=== PATIENT | male | born 1945 | race Caucasian/White ===

== ENCOUNTER 2016-07-05 18:55 | Emergency (ER) | payer MEDICARE, OTHER ==
[~2016-07-05] VITALS: Ht 177.8 cm; Wt 108.9 kg
[~2016-07-05 18:55] MED LIST: ASP325T PO; ASPI-983 PO; ATOR80TA PO; CARV3.122 PO; CLPD75T PO; CRV6.25T; DIPH25TA31 PO; ENAL5TAB PO; ENALIPRIL; ENLP5T; FAMO20TA3 PO; FAMO20TA5 PO; FLUT16SP22 NSEACH; IPRA30SP NSEACH; LEVO500T69 PO; P EP PO; PNT40TEC; TICA90TA PO
[2016-07-05] MEDS ORDERED: ASPIRIN 81 MG CHEW (CHILDREN'S ASA) PO ONE (19:15)
[2016-07-05 19:19] LABS: BASOPHILS % (AUTO) 0 % (0-10); EOSINOPHILS # (AUTO) 0.4 10^3/uL (0.0-0.3); EOSINOPHILS % (AUTO) 5 % (0-10); LYMPHOCYTES # (AUTO) 1.6 X 10^3 (1.0-4.0); LYMPHOCYTES % (AUTO) 17 % (12-44); MEAN CORPUSCULAR HEMOGLOBIN 33 PG (25-34); MEAN CORPUSCULAR HGB CONC 35 G/DL (32-36); MEAN CORPUSCULAR VOLUME 94 FL (80-99); MEAN PLATELET VOLUME 8.9 FL (7.4-10.4); MONOCYTES # (AUTO) 0.9 X 10^3 (0.0-1.0); MONOCYTES % (AUTO) 9 % (0-12); NEUTROPHILS # (AUTO) 6.3 X 10^3 (1.8-7.8); NEUTROPHILS % (AUTO) 69 % (42-75); PLATELET COUNT 318 10^3/uL (130-400); RED BLOOD COUNT 4.65 10^6/uL (4.35-5.85); RED CELL DISTRIBUTION WIDTH 13.2 % (10.0-14.5); WHITE BLOOD COUNT 9.1 10^3/uL (4.3-11.0)
[2016-07-05] MEDS ORDERED: CLOP75TA69 PO (19:25)
[2016-07-05 19:28] LABS: PROTHROMBIN TIME PATIENT 13.2 SEC (12.2-14.7)
--- NOTE | 2016-07-05 19:33 | Diagnostic Imaging Report ---
INDICATION: Chest pain. Comparison with 10/08/2015. FINDINGS: There continues to be cardiomegaly. Mild chronic basilar interstitial lung disease present with no acute infiltrates. The upper lungs are clear with no evidence of pulmonary edema. No pneumothorax or pleural effusions. IMPRESSION: 1. Cardiomegaly with chronic bilateral lower lobe interstitial changes. No evidence of pulmonary edema or pleural effusions. Dictated by: Dictated on workstation # [id number]
--- NOTE | 2016-07-05 19:38 | ED Chest Pain ---
General Chief Complaint: Chest Pain Stated Complaint: CP Nursing Triage Note: PT TO ED 5 W/ S.O. 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 PT DESCRIBES PAIN "BURNING". DOES REPORT HX OF ME W/ STENT PLACEMENT. NO OTHER C/O VOICED Nursing Sepsis Screen: No Definite Risk Source: patient Exam Limitations: no limitations History of Present Illness Time seen by provider: 19:35 Initial Comments To ER with reports of central chest pain that began at 3pm while he was sitting in his chair. States he thought this may have been heartburn as it was kind of a burning sensation. He states that it was more of a discomfort than a pain, did not radiate and was not associated with any other symptoms. He has recently been treated with 2 rounds of antibiotics for an upper respiratory infection by his primary care provider. He became concerned because he has a history of coronary artery disease with stent placement done on 10/08/[address] Membreno. He quit smoking 8 years ago after a 47 year smoking history. Upon arrival to ER he is chest pain-free. At the onset of his pain at home he did take one Pepcid and one baby aspirin. Timing/Duration: 1-3 hours Severity/Quality: moderate Location: central Radiation: no radiation Activities at Onset: none ASA po PHARMACIST IN CHARGE OWNER: Yes NTG SL PHARMACIST IN CHARGE OWNER: No Associated Symptoms: denies symptomsNo nausea/vomiting, No syncope, No weakness Allergies and Home Medications Allergies Coded Allergies: No Known Drug Allergies (Verified , 03/19/08) Home Medications Aspirin 81 Mg Tablet. 81 MG PO DAILY (Reported) Atorvastatin Calcium 80 Mg Tablet 40 MG PO HS (Reported) PATIENT TAKES 1/2 TABLET OF 80 MG DAILY Carvedilol 3.125 Mg Tablet 3.125 MG PO BID (Reported) Clopidogrel Bisulfate 75 Mg Tablet 75 MG PO DAILY (Reported) Diphenhydramine HCl 25 Mg Tablet 25 MG PO DAILY PRN PRN ALLERGIES (Reported) Enalapril Maleate 5 Mg Tablet 10 MG PO DAILY (Reported) PATIENT TAKES 2 (5 MG) TABLETS DAILY Famotidine 20 Mg Tablet 20 MG PO PRN PRN PRN INDIGESTION (Reported) Pseudoephedrine/Triprolidine 1 Each Tablet 1 EACH PO DAILY PRN PRN ALLERGIES ( Reported) Review of Systems Constitutional: see HPINo chills, No diaphoresis EENTM: No Symptoms Reported Respiratory: No Symptoms Reported Cardiovascular: See HPI Chest PainDenies Edema, Denies Irregular Heart Rate, Denies Lightheadedness Gastrointestinal: No Symptoms Reported Genitourinary: No Symptoms Reported Musculoskeletal: no symptoms reported Skin: no symptoms reported Psychiatric/Neurological: No Symptoms Reported Endocrine: No Symptoms Reported Past Nhcbznb-Dzbewe-Vwspmi Hx Patient Social History Alcohol Use: Rarely Uses Recreational Drug Use: No Smoking Status: Former Smoker Recent Foreign Travel: No Contact w/Someone Who Travel: No Recent Infectious Disease Expo: No Recent Hopitalizations: Yes Physical Abuse Screen: No Sexual Abuse: No Immunizations Up To Date Tetanus Booster (TDap): More than 5yrs Date of Pneumonia Vaccine: Mar 13, 2012 Date of Influenza Vaccine: Apr 16, 2013 Surgeries HX Surgeries: Yes (cysts removed, appendix ) Respiratory Hx Respiratory Disorders: Yes (USES BIPAP, GETS SOB WITH EXERCISE) Respiratory Disorders: Sleep Apnea Cardiovascular Hx Cardiac Disorders: Yes (STENTS X2 PLACED 5 YRS AGO) Cardiac Disorders: Heart Attack, High Cholesterol Neurological Hx Neurological Disorders: No Reproductive System Hx Reproductive Disorders: No Genitourinary Hx Genitourinary Disorders: No Gastrointestinal Hx Gastrointestinal Disorders: No Musculoskeletal Hx Musculoskeletal Disorders: No Endocrine Hx Endocrine Disorders: No HEENT HX ENT Disorders: No (GLASSES) Cancer Hx Cancer: No Psychosocial Hx Psychiatric Problems: No Integumentary HX Skin/Integumentary Disorder: No Blood Transfusions Hx Blood Disorders: No (ON BLOOD THINNERS) Family Medical History Family Medial History: Abdominal aortic aneurysm 03 FATHER (DOESN'T KNOW MUCH ABOUT FAMILY HX) No Family History of: Cancer of colon Physical Exam Vital Signs Vital Sign - Last 12Hours 07/05/16 19:00 Temp 98.1 Pulse 69 Resp 18 B/P 154/92 Pulse Ox 96 O2 Delivery Room Air Capillary Refill : Less Than 3 Seconds General Appearance: No Apparent Distress WD/WN Obese HEENT: PERRL/EOMI TMs Normal Neck: Full Range of Motion Supple Respiratory: No Accessory Muscle Use No Respiratory Distress Other (Crackles left lung base) Cardiovascular: Regular Rate, Rhythm Normal Peripheral Pulses Gastrointestinal: Non Tender Soft Extremity: Normal Capillary Refill No Calf Tenderness Neurologic/Psychiatric: Alert Oriented x3 No Motor/Sensory Deficits Skin: Normal Color Warm/Dry Progress/Results/Core Measures Results/Orders Lab Results Laboratory Tests Test 07/05/16 19:10 07/05/16 20:10 Range/Units Activated Partial Thromboplast Time 31 24-35 SEC Alanine Aminotransferase (ALT/SGPT) 34 0-55 U/L Albumin 4.0 3.2-4.5 G/DL Alkaline Phosphatase 112 40-136 U/L Anion Gap 11 5-14 MMOL/L Aspartate Amino Transf (AST/SGOT) 22 5-34 U/L BUN/Creatinine Ratio 12 Basophils # (Auto) 0.0 0.0-0.1 10^3/uL Basophils (%) (Auto) 0 0-10 % Blood Urea Nitrogen 11 7-18 MG/DL Calcium Level 9.0 8.5-10.1 MG/DL Carbon Dioxide Level 19 L 21-32 MMOL/L Chloride Level 101 98-107 MMOL/L Creatinine 0.93 0.60-1.30 MG/DL Eosinophils # (Auto) 0.4 H 0.0-0.3 10^3/uL Eosinophils (%) (Auto) 5 0-10 % Estimat Glomerular Filtration Rate > 60 Glucose Level 111 H 70-105 MG/DL Hematocrit 44 40-54 % Hemoglobin 15.1 13.3-17.7 G/DL INR Comment 1.0 0.8-1.4 Lymphocytes # (Auto) 1.6 1.0-4.0 X 10^3 Lymphocytes (%) (Auto) 17 12-44 % Magnesium Level 2.1 1.8-2.4 MG/DL Mean Corpuscular Hemoglobin 33 25-34 PG Mean Corpuscular Hemoglobin Concent 35 32-36 G/DL Mean Corpuscular Volume 94 80-99 FL Mean Platelet Volume 8.9 7.4-10.4 FL Monocytes # (Auto) 0.9 0.0-1.0 X 10^3 Monocytes (%) (Auto) 9 0-12 % Myoglobin 66.2 10.0-92.0 NG/ML Neutrophils # (Auto) 6.3 1.8-7.8 X 10^3 Neutrophils (%) (Auto) 69 42-75 % Platelet Count 318 130-400 10^3/uL Potassium Level 4.2 3.6-5.0 MMOL/L Prothrombin Time 13.2 12.2-14.7 SEC Red Blood Count 4.65 4.35-5.85 10^6/uL Red Cell Distribution Width 13.2 10.0-14.5 % Sodium Level 131 L 135-145 MMOL/L Total Bilirubin 0.4 0.1-1.0 MG/DL Total Protein 6.6 6.4-8.2 G/DL Troponin I < 0.30 < 0.30 <0.30 NG/ML White Blood Count 9.1 4.3-11.0 10^3/uL My Orders Orders-ORALIAIRASEMA Wilkins DOCUMENT CONTROL ASSOCIATE Cbc With Automated Diff (07/05/16 19:09) Magnesium (07/05/16 19:09) Chest 1 View, Ap/Pa Only (07/05/16 19:09) Ekg Tracing (07/05/16 19:09) Cardiac Profile 1 (07/05/16 19:09) Comprehensive Metabolic Panel (07/05/16 19:09) Myoglobin Serum (07/05/16 19:09) Protime With Inr (07/05/16 19:09) Partial Thromboplastin Time (07/05/16 19:09) O2 (07/05/16 19:09) Monitor-Rhythm Ecg Trace Only (07/05/16 19:09) Lipid Panel (07/06/16 06:00) Aspirin Chewable Tablet (Baby Aspirin Ch (07/05/16 19:15) Saline Lock/Iv-Start (07/05/16 19:09) Troponin I (07/05/16 20:22) Medications Given in ED Current Medications Medications Dose Ordered Sig/Ana Cristina Route Start Time Stop Time Status Last Admin Dose Admin Aspirin 324 mg ONCE ONCE PO 07/05/16 19:15 07/05/16 19:16 DC 07/05/16 19:29 324 MG Vital Signs/I&O Vital Sign - Last 12Hours 07/05/16 07/05/16 19:00 19:00 Temp 98.1 Pulse 69 Resp 18 B/P 154/92 Pulse Ox 96 O2 Delivery Room Air Room Air Blood Pressure Mean: 112 Departure Communication Progress Notes I discussed the case with Dr. Abdi. He would like to see the patient in his office tomorrow morning. Impression Impression: Primary Impression: Chest pain Qualified Code: R07.9 - Chest pain, unspecified Additional Impression: Indigestion Disposition: 01 HOME, SELF-CARE Condition: Stable Departure-Patient Inst. Decision time for Depature: 20:35 Referrals: ANABELLE BATISTA MD (PCP/Family) Primary Care Physician ADRYAN MEMBRENO MD Patient Instructions: Chest Pain Add. Discharge Instructions: 1. Return to ER for any concerns 2. Call Dr. Membreno's office tomorrow to make an appointment for follow-up 3. Use Pepcid (famotidine) twice daily for the next week All discharge instructions reviewed with patient and/or family. Voiced understanding. IRASEMA BARTON DOCUMENT CONTROL ASSOCIATE Jul 05, 2016 19:38
[2016-07-05 19:42] LABS: MYOGLOBIN SERUM 66.2 NG/ML (10.0-92.0)
[2016-07-05 19:59] LABS: ALANINE AMINOTRANSFERASE 34 U/L (0-55); ANION GAP 11 MMOL/L (5-14); ASPARTATE AMINO TRANSFERASE 22 U/L (5-34); BILIRUBIN,TOTAL 0.4 MG/DL (0.1-1.0); BLOOD UREA NITROGEN 11 MG/DL (7-18); BUN/CREATININE RATIO 12; CARBON DIOXIDE 19 MMOL/L (21-32); CHLORIDE 101 MMOL/L (98-107); CREATININE SERUM 0.93 MG/DL (0.60-1.30); GFR ESTIMATED > 60; GLUCOSE 111 MG/DL (70-105); MAGNESIUM 2.1 MG/DL (1.8-2.4); POTASSIUM 4.2 MMOL/L (3.6-5.0); SODIUM 131 MMOL/L (135-145); TOTAL PROTEIN 6.6 G/DL (6.4-8.2)
[2016-07-05 21:17] VITALS: BP 133/79
== END 2016-07-05 21:17 | disposition home or self-care (01) ==
LOC: EDUNIT# 18:55 → ER 18:56
DX: R07.9 Chest pain, unspecified (principal); K30 Functional dyspepsia; I25.10 Atherosclerotic heart disease of native coronary artery without angina pectoris; I25.2 Old myocardial infarction; Z79.82 Long term (current) use of aspirin; Z79.02 Long term (current) use of antithrombotics/antiplatelets; Z79.899 Other long term (current) drug therapy; Z95.5 Presence of coronary angioplasty implant and graft
CPT/HCPCS: 36415; 71010; 80053; 83735; 83874; 84484; 85025; 85610; 85730; 93005

== ENCOUNTER 2016-07-15 01:11 | Observation (INO) | payer MEDICARE, OTHER ==
[~2016-07-15] VITALS: Ht 177.8 cm; Wt 108.0 kg
[2016-07-15] VITALS (15 sets, daily range): BP systolic 109–149; BP diastolic 61–86
[~2016-07-15 01:11] MED LIST changes: +CLOP75TA69 PO
--- OUTSIDE RECORDS SUMMARY | 2016-07-15 01:18 | XMS REPORT | Continuity of Care Document ---
Author Author [facility] Organization [facility] Address Unknown Phone Unavailable Care Team Providers Care Wharf Builder Name Role Phone ANABELLE BATISTA MD PCP Insurance Providers Payer Name Policy Number Subscriber Name Relationship [employer] [id number] Preet Barton 17 Self / Same As Patient [employer] [id number] Preet Barton 17 Self / Same As Patient Advance Directives Directive Response Recorded Date/Time Advance Directives No 07/05/16 7:00pm Health Care Power of Inspector Final Assembly Mechanical No 07/05/16 7:00pm Organ Donor Yes 07/05/16 7:00pm Resuscitation Status Full Code 07/05/16 7:00pm Chief Complaint and Reason for Visit Chief Complaint Chest Pain Reason for Visit Indigestion Chest pain Problems Active Problems Medical Problem Onset Date Status Chest pain Unknown Acute Indigestion Unknown Acute Medications Current Home Medications Medication Dose Units Route Directions Days/Qty Instructions Start Date Atorvastatin Calcium 80 Mg 40 Mg Oral Bedtime PATIENT TAKES 1/2 TABLET OF 80 MG DAILY 08/24/08 Carvedilol (Coreg) 3.125 Mg 3.125 Mg Oral Twice A Day 06/05/09 Enalapril Maleate 5 Mg 10 Mg Oral Daily PATIENT TAKES 2 (5 MG) TABLETS DAILY 08/15/13 Aspirin 81 Mg 81 Mg Oral Daily 10/08/15 Pseudoephedrine/Triprolidine 1 Each 1 Each Oral Daily as needed for Allergies 10/08/15 Famotidine 20 Mg Oral As Needed as needed for Indigestion 10/08/15 Diphenhydramine Hcl 25 Mg 25 Mg Oral Daily as needed for Allergies 10/08/15 Clopidogrel Bisulfate 75 Mg 75 Mg Oral Daily 07/05/16 Past Home Medications Medication Directions Ordered Status Pantoprazole Sodium 40 Mg Tablet., 08/24/08 Discontinued Carvedilol 6.25 Mg Tab, 08/24/08 Discontinued Clopidogrel Bisulfate 75 Mg Tablet, 75 Mg Oral Daily 08/24/08 Discontinued Enalapril Maleate 5 Mg Tab, 08/24/08 Discontinued Aspirin 325 Mg Tablet, 325 Mg Oral Daily 08/24/08 Discontinued [Enalipril] , 06/04/09 Discontinued Levofloxacin 500 Mg Tab, 1 Each Oral Daily 06/19/11 Discontinued Famotidine (Pepcid) 20 Mg Tablet, 20 Mg Oral Daily as needed for Heartburn Discontinued Fluticasone Propionate 16 Gm Naspr, 1 Spr Each Nostril Daily 08/15/13 Discontinued Ipratropium [place] 21 Mcg [place], 1 Spr Each Nostril Daily as needed for Nasal Congestion 08/15/13 Discontinued Ticagrelor 90 Mg Tablet, 90 Mg Oral Twice A Day 10/09/15 Discontinued Social History Social History Problem Response Recorded Date/Time Alcohol Use Denies Use 08/17/2013 7:38am Recreational Drug Use No 08/17/2013 7:38am Recent Foreign Travel No 08/17/2013 7:38am Recent Infectious Disease Exposure No 08/17/2013 7:38am Hospitalization with Isolation Denies 07/05/2016 7:00pm Smoking Status Former Smoker 07/05/2016 7:00pm Recent Hopitalizations Yes 07/05/2016 7:00pm Hospitalization with Isolation Denies 07/05/2016 7:00pm Query Response Start Date Stop Date Smoking Status Former Smoker Hospital Discharge Instructions No hospital discharge instructions. Plan of Care Discharge Date 07/05/16 9:17pm Disposition 01 HOME, SELF-CARE Condition at Discharge Stable Instructions/Education Provided Chest Pain Prescriptions See Medication Section Referrals ANABELLE BATISTA MD - Primary Care Physician ANABELLE BATISTA MD - Primary Care Physician ADRYAN MEMBRENO MD - Additional Instructions/Education 1. Return to ER for any concerns 2. Call Dr. Membreno's office tomorrow to make an appointment for follow-up 3. Use Pepcid (famotidine) twice daily for the next week All discharge instructions reviewed with patient and/or family. Voiced understanding. Functional Status No functional status results. Allergies, Adverse Reactions, Alerts No known allergies. Immunizations No immunization records. Vital Signs Acute Vital Signs Vital Response Date/Time Temperature (Fahrenheit) 98.1 degrees F (97.6 - 99.5) 07/05/2016 7:00pm Temperature (Calculated Celsius) 36.86056 degrees C (36.4 - 37.5) 07/05/2016 7:00pm Temperature Source Temporal 07/05/2016 7:00pm Pulse Rate (adult) 60 bpm (60 - 90) 07/05/2016 9:17pm Respiratory Rate 18 bpm (12 - 24) 07/05/2016 9:17pm O2 Sat by Pulse Oximetry 99 % (88 - 100) 07/05/2016 9:17pm Blood Pressure 133/79 mm Hg 07/05/2016 9:17pm Blood Pressure Mean 112 mm Hg 07/05/2016 7:00pm Pain Numeric Pain Scale 0-No Pain 07/05/2016 9:17pm Height (Feet) 5 feet 07/05/2016 7:00pm Height (Inches) 10 inches 07/05/2016 7:00pm Height (Calculated Centimeters) 177.555423 cm 07/05/2016 7:00pm Weight (Pounds) 240 pounds 07/05/2016 7:00pm Weight (Calculated Kilograms) 108.956779 kilograms 07/05/2016 7:00pm Capillary Refill Capillary Refill Less Than 3 Seconds 07/05/2016 7:00pm Capillary Refill Capillary Refill Less Than 3 Seconds 07/05/2016 7:00pm Height 5 ft 10 in Weight 240 lb Body Mass Index 34.4 kg/m^2 Results Laboratory Results Test Name Result Units Flags Reference Collection Date/Time Result Date/ Time Comments White Blood Count 9.1 10^3/uL 4.3-11.0 07/05/2016 7:10pm 07/05/2016 7: 20pm Red Blood Count 4.65 10^6/uL 4.35-5.85 07/05/2016 7:10pm 07/05/2016 7: 20pm Hemoglobin 15.1 G/DL 13.3-17.7 07/05/2016 7:10pm 07/05/2016 7:20pm Hematocrit 44 % 40-54 07/05/2016 7:1007/05/2016 7:20pm Mean Corpuscular Volume 94 FL 80-99 07/05/2016 7:1007/05/2016 7: 20pm Mean Corpuscular Hemoglobin 33 PG 25-34 07/05/2016 7:10pm 07/05/2016 7: 20pm Mean Corpuscular Hemoglobin Concent 35 G/DL 32-36 07/05/2016 7:10pm 7:20pm Red Cell Distribution Width 13.2 % 10.0-14.5 07/05/2016 7:102016 7:20pm Platelet Count 318 10^3/uL 130-400 07/05/2016 7:1007/05/2016 7:20pm Mean Platelet Volume 8.9 FL 7.4-10.4 07/05/2016 7:1007/05/2016 7: 20pm Neutrophils (%) (Auto) 69 % 42-75 07/05/2016 7:1007/05/2016 7:20pm Lymphocytes (%) (Auto) 17 % 12-44 07/05/2016 7:1007/05/2016 7:20pm Monocytes (%) (Auto) 9 % 0-12 07/05/2016 7:1007/05/2016 7:20pm Eosinophils (%) (Auto) 5 % 0-10 07/05/2016 7:1007/05/2016 7:20pm Basophils (%) (Auto) 0 % 0-10 07/05/2016 7:1007/05/2016 7:20pm Neutrophils # (Auto) 6.3 X 10^3 1.8-7.8 07/05/2016 7:10pm 07/05/2016 7: 20pm Lymphocytes # (Auto) 1.6 X 10^3 1.0-4.0 07/05/2016 7:10pm 07/05/2016 7: 20pm Monocytes # (Auto) 0.9 X 10^3 0.0-1.0 07/05/2016 7:10pm 07/05/2016 7: 20pm Eosinophils # (Auto) 0.4 10^3/uL H 0.0-0.3 07/05/2016 7:10pm 07/05/2016 7 :20pm Basophils # (Auto) 0.0 10^3/uL 0.0-0.1 07/05/2016 7:10pm 07/05/2016 7: 20pm Prothrombin Time 13.2 SEC 12.2-14.7 07/05/2016 7:10pm 07/05/2016 7: 30pm INR Comment 1.0 0.8-1.4 07/05/2016 7:10pm 07/05/2016 7:30pm INTERPRETIVE DATA SUGGESTED THERAPEUTIC RANGE FOR INR'S: VENOUS THROMBOSIS, PULMONARY EMBOLISM, OR PREVENTION OF SYSTEMIC EMBOLISM (EG. IN ATRIAL FIBRILLATION): 2.0 - 3.0 MECHANICAL PROSTHETIC HEART VALVES: 2.5 - 3.5* *NOTE: INR'S UP TO 4.5 MAY BE NECESSARY IN SELECTED GROUPS OF HIGH RISK PATIENTS. [employer] CONSENSUS CONFERENCE ON ANTITHROMBOTIC THERAPY (2000). Activated Partial Thromboplast Time 31 SEC 24-35 07/05/2016 7:10 7:30pm Sodium Level 131 MMOL/L L 135-145 07/05/2016 7:1007/05/2016 8:02pm Potassium Level 4.2 MMOL/L 3.6-5.0 07/05/2016 7:1007/05/2016 8:02pm Chloride Level 101 MMOL/L 98-107 07/05/2016 7:1007/05/2016 8:02pm Carbon Dioxide Level 19 MMOL/L L 21-32 07/05/2016 7:1007/05/2016 8: 02pm Anion Gap 11 MMOL/L 5-14 07/05/2016 7:1007/05/2016 8:02pm Blood Urea Nitrogen 11 MG/DL 7-18 07/05/2016 7:10pm 07/05/2016 8:02pm Creatinine 0.93 MG/DL 0.60-1.30 07/05/2016 7:10pm 07/05/2016 8:02pm BUN/Creatinine Ratio 12 07/05/2016 7:1007/05/2016 8:02pm Estimat Glomerular Filtration Rate > 60 07/05/2016 7:102016 8:02pm GFR INTERPRETIVE DATA UNITS FOR ESTIMATED GFR (eGFR): mL/min/1.73 M2 REFERENCE RANGE FOR ESTIMATED GFR (eGFR) eGFR NORMAL eGFR >60 MODERATELY DECREASED eGFR 30-59 SEVERLY DECREASED eGFR 15-29 KIDNEY FAILURE <15 (OR DIALYSIS) Glucose Level 111 MG/DL H 70-105 07/05/2016 7:1007/05/2016 8:02pm Calcium Level 9.0 MG/DL 8.5-10.1 07/05/2016 7:1007/05/2016 8:02pm Magnesium Level 2.1 MG/DL 1.8-2.4 07/05/2016 7:1007/05/2016 8:02pm Total Bilirubin 0.4 MG/DL 0.1-1.0 07/05/2016 7:1007/05/2016 8:02pm Alkaline Phosphatase 112 U/L 40-136 07/05/2016 7:07/05/2016 8: 02pm Aspartate Amino Transf (AST/SGOT) 22 U/L 5-34 07/05/2016 7:102016 8:02pm Alanine Aminotransferase (ALT/SGPT) 34 U/L 0-55 07/05/2016 7:1007/05 8:02pm Troponin I < 0.30 NG/ML <0.30 07/05/2016 8:1007/05/2016 9:08pm Troponin I < 0.30 NG/ML <0.30 07/05/2016 7:07/05/2016 7:43pm Myoglobin 66.2 NG/ML 10.0-92.0 07/05/2016 7:1007/05/2016 7:43pm Total Protein 6.6 G/DL 6.4-8.2 07/05/2016 7:1007/05/2016 8:02pm Albumin 4.0 G/DL 3.2-4.5 07/05/2016 7:10pm 07/05/2016 8:02pm Procedures Procedure Status Date Provider(s) Tracing only of electrocardiogram Active 07/05/16 IRASEMA BARTON APRN Encounters Encounter Location Arrival/Admit Date Discharge/Depart Date Attending Provider Registered Emergency Room [facility] 07/05/16 6:56pm IRASEMA BARTON APRN Recent Diagnosis
[2016-07-15] MEDS ORDERED: ASPIRIN 81 MG CHEW (CHILDREN'S ASA) PO ONE (01:30)
[2016-07-15 01:48] LABS: BASOPHILS % (AUTO) 0 % (0-10); EOSINOPHILS # (AUTO) 0.3 10^3/uL (0.0-0.3); EOSINOPHILS % (AUTO) 3 % (0-10); LYMPHOCYTES # (AUTO) 1.5 X 10^3 (1.0-4.0); LYMPHOCYTES % (AUTO) 16 % (12-44); MEAN CORPUSCULAR HEMOGLOBIN 33 PG (25-34); MEAN CORPUSCULAR HGB CONC 35 G/DL (32-36); MEAN CORPUSCULAR VOLUME 93 FL (80-99); MEAN PLATELET VOLUME 9.3 FL (7.4-10.4); MONOCYTES # (AUTO) 0.9 X 10^3 (0.0-1.0); MONOCYTES % (AUTO) 9 % (0-12); NEUTROPHILS # (AUTO) 7.2 X 10^3 (1.8-7.8); NEUTROPHILS % (AUTO) 72 % (42-75); PLATELET COUNT 328 10^3/uL (130-400); RED BLOOD COUNT 4.64 10^6/uL (4.35-5.85); RED CELL DISTRIBUTION WIDTH 13.1 % (10.0-14.5); WHITE BLOOD COUNT 9.9 10^3/uL (4.3-11.0)
[2016-07-15 01:51] LABS: PROTHROMBIN TIME PATIENT 13.1 SEC (12.2-14.7)
[2016-07-15 02:02] LABS: ALANINE AMINOTRANSFERASE 46 U/L (0-55); ALBUMIN 3.9 G/DL (3.2-4.5); ANION GAP 15 MMOL/L (5-14); ASPARTATE AMINO TRANSFERASE 48 U/L (5-34); BILIRUBIN,TOTAL 0.5 MG/DL (0.1-1.0); BLOOD UREA NITROGEN 9 MG/DL (7-18); BUN/CREATININE RATIO 9; CALCIUM 8.8 MG/DL (8.5-10.1); CARBON DIOXIDE 18 MMOL/L (21-32); CHLORIDE 100 MMOL/L (98-107); CREATININE SERUM 0.99 MG/DL (0.60-1.30); GFR ESTIMATED > 60; GLUCOSE 205 MG/DL (70-105); MAGNESIUM 2.1 MG/DL (1.8-2.4); POTASSIUM 3.6 MMOL/L (3.6-5.0); SODIUM 133 MMOL/L (135-145); TOTAL PROTEIN 6.6 G/DL (6.4-8.2)
--- NOTE | 2016-07-15 02:08 | ED Chest Pain ---
General Chief Complaint: Chest Pain Stated Complaint: CP Nursing Triage Note: Reports CP at rest lasting 20-30 min starting 0010. EMS arrival at home found pt outside walking toward them stating he had been pain free 4-5 min. Nursing Sepsis Screen: No Definite Risk Source: patient Exam Limitations: no limitations History of Present Illness Time seen by provider: 01:13 Initial Comments This 70-year-old gentleman presents to the emergency room with chest pain that started at approximately 00:10 and lasted for 20-30 minutes. The pain was central sternal, sharp, and accompanied by shakiness, shortness of air, and diaphoresis. Patient was at rest at onset. Patient reports having some lower abdominal aching the past couple of days which resolved today around noon. He has had a mild cough recently. He take aspirin 81 mg at home. Patient had another visit about one week ago for another episode of chest pain. He was dismissed from the ER after workup. Review of patient's chart notes a cardiac catheterization performed in September 2015 in which stenting of an 80 percent LAD stenosis was performed. Allergies and Home Medications Allergies Coded Allergies: No Known Drug Allergies (Verified , 03/19/08) Home Medications Aspirin 81 Mg Tablet.dr 81 MG PO DAILY (Reported) Atorvastatin Calcium 80 Mg Tablet 40 MG PO HS (Reported) PATIENT TAKES 1/2 TABLET OF 80 MG DAILY Carvedilol 3.125 Mg Tablet 3.125 MG PO BID (Reported) Clopidogrel Bisulfate 75 Mg Tablet 75 MG PO DAILY (Reported) Diphenhydramine HCl 25 Mg Tablet 25 MG PO DAILY PRN PRN ALLERGIES (Reported) Enalapril Maleate 5 Mg Tablet 5 MG PO DAILY (Reported) Famotidine 20 Mg Tablet 20 MG PO PRN PRN PRN INDIGESTION (Reported) Pseudoephedrine/Triprolidine 1 Each Tablet 1 EACH PO DAILY PRN PRN ALLERGIES ( Reported) Review of Systems Constitutional: see HPI diaphoresis EENTM: No Symptoms Reported Respiratory: See HPI Cardiovascular: See HPI Gastrointestinal: See HPI Genitourinary: No Symptoms Reported Musculoskeletal: no symptoms reported Skin: no symptoms reported Psychiatric/Neurological: No Symptoms Reported Endocrine: No Symptoms Reported Past Biehaix-Ajionb-Rwdtys Hx Patient Social History Alcohol Use: Rarely Uses Recreational Drug Use: No Smoking Status: Former Smoker Recent Foreign Travel: No Contact w/Someone Who Travel: No Recent Infectious Disease Expo: No Recent Hopitalizations: Yes Immunizations Up To Date Tetanus Booster (TDap): More than 5yrs Date of Pneumonia Vaccine: Mar 13, 2014 Date of Influenza Vaccine: Apr 16, 2013 Seasonal Allergies Seasonal Allergies: No Surgeries HX Surgeries: Yes (cysts removed thumb/scapula) Surgeries: Appendectomy, Coronary Stent, Vascular Surgery (CEA) Respiratory Hx Respiratory Disorders: Yes (USES BIPAP, GETS SOB WITH EXERCISE) Respiratory Disorders: Sleep Apnea Cardiovascular Hx Cardiac Disorders: Yes Cardiac Disorders: Coronary Artery Disease, Heart Attack, High Cholesterol Neurological Hx Neurological Disorders: No Reproductive System Hx Reproductive Disorders: No Genitourinary Hx Genitourinary Disorders: No Gastrointestinal Hx Gastrointestinal Disorders: Yes Gastrointestinal Disorders: Gastroesophageal Reflux Musculoskeletal Hx Musculoskeletal Disorders: Yes (Closed reductions) Musculoskeletal Disorders: Fractures Endocrine Hx Endocrine Disorders: No HEENT HX ENT Disorders: No (GLASSES) Cancer Hx Cancer: No Psychosocial Hx Psychiatric Problems: No Integumentary HX Skin/Integumentary Disorder: No Blood Transfusions Hx Blood Disorders: No (ON BLOOD THINNERS) Family Medical History Family Medial History: Abdominal aortic aneurysm 03 FATHER (DOESN'T KNOW MUCH ABOUT FAMILY HX) No Family History of: Cancer of colon Physical Exam Vital Signs Vital Sign - Last 12Hours 07/15/16 01:11 Temp 99.4 Pulse 84 Resp 19 B/P 134/74 Pulse Ox 96 O2 Delivery Room Air Capillary Refill : Less Than 3 Seconds General Appearance: No Apparent Distress WD/WN HEENT: PERRL/EOMI Normal ENT Inspection Neck: Normal Inspection Respiratory: Lungs Clear Normal Breath Sounds No Accessory Muscle Use No Respiratory Distress Cardiovascular: Regular Rate, Rhythm No Edema No Murmur Normal Peripheral Pulses Gastrointestinal: Normal Bowel Sounds Non Tender Soft Extremity: Normal Inspection Non Tender No Pedal Edema Neurologic/Psychiatric: Alert Oriented x3 No Motor/Sensory Deficits 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 Norm as Tested Skin: Normal Color Warm/Dry Progress/Results/Core Measures Results/Orders Lab Results Laboratory Tests Test 07/15/16 01:19 Range/Units Activated Partial Thromboplast Time 32 24-35 SEC Alanine Aminotransferase (ALT/SGPT) 46 0-55 U/L Albumin 3.9 3.2-4.5 G/DL Alkaline Phosphatase 102 40-136 U/L Anion Gap 15 H 5-14 MMOL/L Aspartate Amino Transf (AST/SGOT) 48 H 5-34 U/L BUN/Creatinine Ratio 9 Basophils # (Auto) 0.0 0.0-0.1 10^3/uL Basophils (%) (Auto) 0 0-10 % Blood Urea Nitrogen 9 7-18 MG/DL Calcium Level 8.8 8.5-10.1 MG/DL Carbon Dioxide Level 18 L 21-32 MMOL/L Chloride Level 100 98-107 MMOL/L Creatinine 0.99 0.60-1.30 MG/DL Eosinophils # (Auto) 0.3 0.0-0.3 10^3/uL Eosinophils (%) (Auto) 3 0-10 % Estimat Glomerular Filtration Rate > 60 Glucose Level 205 H 70-105 MG/DL Hematocrit 43 40-54 % Hemoglobin 15.2 13.3-17.7 G/DL INR Comment 1.0 0.8-1.4 Lymphocytes # (Auto) 1.5 1.0-4.0 X 10^3 Lymphocytes (%) (Auto) 16 12-44 % Magnesium Level 2.1 1.8-2.4 MG/DL Mean Corpuscular Hemoglobin 33 25-34 PG Mean Corpuscular Hemoglobin Concent 35 32-36 G/DL Mean Corpuscular Volume 93 80-99 FL Mean Platelet Volume 9.3 7.4-10.4 FL Monocytes # (Auto) 0.9 0.0-1.0 X 10^3 Monocytes (%) (Auto) 9 0-12 % Myoglobin 60.7 10.0-92.0 NG/ML Neutrophils # (Auto) 7.2 1.8-7.8 X 10^3 Neutrophils (%) (Auto) 72 42-75 % Platelet Count 328 130-400 10^3/uL Potassium Level 3.6 3.6-5.0 MMOL/L Prothrombin Time 13.1 12.2-14.7 SEC Red Blood Count 4.64 4.35-5.85 10^6/uL Red Cell Distribution Width 13.1 10.0-14.5 % Sodium Level 133 L 135-145 MMOL/L Total Bilirubin 0.5 0.1-1.0 MG/DL Total Protein 6.6 6.4-8.2 G/DL Troponin I < 0.30 <0.30 NG/ML White Blood Count 9.9 4.3-11.0 10^3/uL My Orders Orders-KULDIP SANCHEZ MD Cbc With Automated Diff (07/15/16 01:28) Magnesium (07/15/16 01:28) Chest 1 View, Ap/Pa Only (07/15/16 01:28) Ekg Tracing (07/15/16 01:28) Cardiac Profile 1 (07/15/16 01:28) Comprehensive Metabolic Panel (07/15/16 01:28) Myoglobin Serum (07/15/16 01:28) Protime With Inr (07/15/16 01:28) Partial Thromboplastin Time (07/15/16 01:28) O2 (07/15/16 01:28) Monitor-Rhythm Ecg Trace Only (07/15/16 01:28) Lipid Panel (07/16/16 06:00) Aspirin Chewable Tablet (Baby Aspirin Ch (07/15/16 01:30) Saline Lock/Iv-Start (07/15/16 01:28) Medications Given in ED Current Medications Medications Dose Ordered Sig/Ana Cristina Route Start Time Stop Time Status Last Admin Dose Admin Aspirin 243 mg ONCE ONCE PO 07/15/16 01:30 07/15/16 01:32 DC 07/15/16 01:39 243 MG Vital Signs/I&O Vital Sign - Last 12Hours 07/15/16 07/15/16 07/15/16 01:11 01:11 01:39 Temp 99.4 99.4 Pulse 84 Resp 19 B/P 134/74 Pulse Ox 96 O2 Delivery Room Air Room Air Blood Pressure Mean: 94 ECG Initial ECG Impression Date: Jul 15, 2016 Initial ECG Impression Time: 01:21 Initial ECG Rate: 88 Initial ECG Rhythm: Normal Sinus Initial ECG Intervals: Normal Initial ECG Impression: Normal Comment Normal sinus rhythm with no ST elevation or depression. No abnormal intervals or axis deviation. Diagnostic Imaging Diagonstic Imaging: Xray Plain Films/CT/US/NM/MRI: chest Comments Chest x-ray viewed by me and report not available. Compared with prior. No acute changes from prior. Departure Communication Time/Spoke to Admitting Phy: 02:[address] Yung Time/Spoke to Consulting Physi: 02:45 Communication/Consulting Dr. Myles Impression Impression: Primary Impression: Chest pain Qualified Code: R07.9 - Chest pain, unspecified Additional Impression: Coronary artery disease Qualified Code: I25.10 - Atherosclerotic heart disease of [place] coronary artery without angina pectoris Disposition: ADMITTED INPATIENT Condition: Improved Decision to Admit Reason: Admit from ER (General) Decision to Admit/Date: Jul 15, 2016 Time/Decision to Admit Time: 02:15 Departure-Patient Inst. Referrals: ANABELLE BATISTA MD (PCP/Family) Primary Care Physician KULDIP SANCHEZ MD Jul 15, 2016 02:08
[2016-07-15 02:09] LABS: MYOGLOBIN SERUM 60.7 NG/ML (10.0-92.0)
[2016-07-15 04:42] LABS: ANION GAP 10 MMOL/L (5-14); BLOOD UREA NITROGEN 8 MG/DL (7-18); BUN/CREATININE RATIO 9; CALCIUM 9.2 MG/DL (8.5-10.1); CARBON DIOXIDE 20 MMOL/L (21-32); CHLORIDE 103 MMOL/L (98-107); CHOLESTEROL 120 MG/DL (< 200); CREATININE SERUM 0.86 MG/DL (0.60-1.30); DIRECT LDL 67 MG/DL (1-129); GFR ESTIMATED > 60; GLUCOSE 114 MG/DL (70-105); MAGNESIUM 2.4 MG/DL (1.8-2.4); PHOSPHORUS 2.7 MG/DL (2.3-4.7); POTASSIUM 4.3 MMOL/L (3.6-5.0); SODIUM 133 MMOL/L (135-145); TRIGLYCERIDES 162 MG/DL (<150); VLDL CHOLESTEROL 32 MG/DL (5-40)
--- NOTE | 2016-07-15 06:55 | Diagnostic Imaging Report ---
Clinical indication: Patient with chest pain. Exam: Portable chest x-ray upright view. Comparison: Chest x-ray dated 07/05/2016. Findings: There is stable cardiomegaly with no significant interval pulmonary vascular congestion. There is increased lung markings seen bilaterally throughout both lungs. There is no pleural effusion or pneumothorax. Bones show no significant interval abnormality. Impression: 1.: Stable chest x-ray exam with cardiomegaly and no significant pulmonary vascular congestion. 2: Stable increased lung markings throughout both lungs. Dictated by: Dictated on workstation # [id number]
[2016-07-15] MEDS ORDERED: FLU TRIvalent (5 YOA+) 2016-17 (AFLURIA) 0.5 ML IM ONE (07:30)
[2016-07-15 07:40] LABS: CREATINE KINASE 91 U/L (30-200)
[2016-07-15 07:46] LABS: TROPONIN I < 0.30 NG/ML (<0.30)
--- NOTE | 2016-07-15 08:19 | Consultation-Cardiology ---
HPI-Cardiology Cardiology Consultation Date of Consultation 07/15/16 Date of Admission Indication: chest pain HPI 70-year-old gentleman with history of coronary artery disease, multiple intervention in the past. Hypertension hyperlipidemia was in his usual state of health until last night when he woke up with chest pain described it as dull achiness bandlike around his chest lasted for about half an hour, resolved spontaneously, came into the emergency room by the time he arrived to the hospital he was feeling better. Did not use any nitroglycerin. Had few episode of chest pain over the past few weeks. Not as significant as last night. Had mild dyspnea on exertion. No palpitation, no syncope, no pedal edema. No claudication. Home Medications & Allergies Allergies: Coded Allergies: No Known Drug Allergies (Verified , 03/19/08) Home Medication List Reviewed: Yes JDF-Cjjumv-Jiyknn Hx Patient Social History Marital Status: Alcohol Use: Rarely Uses Recreational Drug Use: No Smoking Status: Former Smoker Type Used: Cigarettes Recent Foreign Travel: No Recent Infectious Disease Expo: No Recent Hopitalizations: Yes Physical Abuse Screen: No Sexual Abuse: No Immunizations Up To Date Tetanus Booster (TDap): More than 5yrs Date of Pneumonia Vaccine: Mar 13, 2014 Date of Influenza Vaccine: Apr 14, 2013 Past Medical History past medical history as discussed below Family Medical History Family History: 03 FATHER Abdominal aortic aneurysm (DOESN'T KNOW MUCH ABOUT FAMILY HX) Constitutional: no symptoms reported see HPI EENTM: no symptoms reported see HPI Respiratory: see HPINo cough, dyspnea on exertionNo hemoptysis, No orthopnea , No phlegm, short of breathNo stridor, No wheezing, No other Cardiovascular: see HPI chest painNo edema, No Hx of Intervention, No palpitations, No syncope, No vascular heart diseas, No other Gastrointestinal: no symptoms reported see HPI Genitourinary: no symptoms reported see HPI Musculoskeletal: no symptoms reported see HPI Skin: no symptoms reported see HPI Psychiatric/Neurological: No Symptoms Reported See HPI Reviewed Test Results Reviewed Test Results Lab Laboratory Tests Test 07/15/16 01:19 07/15/16 03:58 07/15/16 07:15 Range/Units Activated Partial Thromboplast Time 32 24-35 SEC Alanine Aminotransferase (ALT/SGPT) 46 0-55 U/L Albumin 3.9 3.2-4.5 G/DL Alkaline Phosphatase 102 40-136 U/L Anion Gap 15 H 10 5-14 MMOL/L Aspartate Amino Transf (AST/SGOT) 48 H 5-34 U/L BUN/Creatinine Ratio 9 9 Basophils # (Auto) 0.0 0.0-0.1 10^3/uL Basophils (%) (Auto) 0 0-10 % Blood Urea Nitrogen 9 8 7-18 MG/DL Calcium Level 8.8 9.2 8.5-10.1 MG/DL Carbon Dioxide Level 18 L 20 L 21-32 MMOL/L Chloride Level 100 103 98-107 MMOL/L Creatinine 0.99 0.86 0.60-1.30 MG/DL Eosinophils # (Auto) 0.3 0.0-0.3 10^3/uL Eosinophils (%) (Auto) 3 0-10 % Estimat Glomerular Filtration Rate > 60 > 60 Glucose Level 205 H 114 H 70-105 MG/DL Hematocrit 43 40-54 % Hemoglobin 15.2 13.3-17.7 G/DL INR Comment 1.0 0.8-1.4 Lymphocytes # (Auto) 1.5 1.0-4.0 X 10^3 Lymphocytes (%) (Auto) 16 12-44 % Magnesium Level 2.1 2.4 1.8-2.4 MG/DL Mean Corpuscular Hemoglobin 33 25-34 PG Mean Corpuscular Hemoglobin Concent 35 32-36 G/DL Mean Corpuscular Volume 93 80-99 FL Mean Platelet Volume 9.3 7.4-10.4 FL Monocytes # (Auto) 0.9 0.0-1.0 X 10^3 Monocytes (%) (Auto) 9 0-12 % Myoglobin 60.7 10.0-92.0 NG/ML Neutrophils # (Auto) 7.2 1.8-7.8 X 10^3 Neutrophils (%) (Auto) 72 42-75 % Platelet Count 328 130-400 10^3/uL Potassium Level 3.6 4.3 3.6-5.0 MMOL/L Prothrombin Time 13.1 12.2-14.7 SEC Red Blood Count 4.64 4.35-5.85 10^6/uL Red Cell Distribution Width 13.1 10.0-14.5 % Sodium Level 133 L 133 L 135-145 MMOL/L Total Bilirubin 0.5 0.1-1.0 MG/DL Total Protein 6.6 6.4-8.2 G/DL Troponin I < 0.30 < 0.30 <0.30 NG/ML White Blood Count 9.9 4.3-11.0 10^3/uL Cholesterol Level 120 < 200 MG/DL HDL Cholesterol 26 L 40-60 MG/DL LDL Cholesterol Direct 67 1-129 MG/DL Phosphorus Level 2.7 2.3-4.7 MG/DL Triglycerides Level 162 H <150 MG/DL VLDL Cholesterol 32 5-40 MG/DL Total Creatine Kinase 91 30-200 U/L Physical Exam Vital Signs Vital Sign - Last 12Hours 07/15/16 01:11 Temp 99.4 Pulse 84 Resp 19 B/P 134/74 Pulse Ox 96 O2 Delivery Room Air Capillary Refill : Less Than 3 Seconds General Appearance: No Apparent Distress WD/WN Eyes: Bilateral Eye EOMI, Bilateral Eye Normal Inspection, Bilateral Eye PERRL HEENT: PERRL/EOMI TMs Normal Normal ENT Inspection Pharynx Normal Neck: Full Range of Motion Normal Inspection Non Tender Supple Carotid Bruit Respiratory: Chest Non Tender Lungs Clear Normal Breath Sounds No Accessory Muscle Use No Respiratory Distress Cardiovascular: Regular Rate, Rhythm No Edema No Gallop No JVD No Murmur Normal Peripheral Pulses Gastrointestinal: Normal Bowel Sounds No Organomegaly No Pulsatile Mass Non Tender Soft Back: Normal Inspection No CVA Tenderness No Vertebral Tenderness Extremity: Normal Capillary Refill Normal Inspection Normal Range of Motion Non Tender No Calf Tenderness No Pedal Edema Neurologic/Psychiatric: Alert Oriented x3 No Motor/Sensory Deficits Normal Mood/Affect Skin: Normal Color Warm/Dry Lymphatic: No Adenopathy A/P-Cardiology Admission Diagnosis Chest pain nonspecific etiology Coronary artery disease Hypertension Hyperlipidemia Assessment/Plan Chest pain nonspecific etiology, atypical in presentation, planning to proceed with stress test. EKG and cardiac enzymes were normal. Patient was requesting to wait for few weeks prior to having any tests done, he finally agreed to stay today and have the test done Coronary artery disease, history of stents to the right coronary artery done in 2007. Had a 2.5x12 mm and 2.5x15 mm Promus stents. Most recent cardiac catheterization done October 08, 2015 revealed 70 percent stenosis in the mid LAD with a short area of 80 percent stenosis proximally. Successful FFR evaluation and then stent deployment using 2.5 x 24 mm Promus Premier. Patent stent in RCA with mild disease distally. Mild to moderate disease in the circumflex. I am planning to proceed with stress test. Hypertension, patient reports episodes of hypotension, better at this time. Continue current medication monitor. Hyperlipidemia, controlled. Continue to monitor. Obesity. BMI is 34. Patient was educated on diet and weight loss. Dyspnea, probably due to underlying COPD and obesity. He was educated to continue with exercise. COPD/obstructive sleep apnea. Using C Pap at night. Carotid stenosis. Status post right carotid endarterectomy done in August 2013, followed by Dr. Pelon Marcano in [place], reported that he had an ultrasound done in [place] recently and it it was verbally reported as no significant change compared to the previous study Occasional leg cramps and pain, ABIs within normal limits Clinical Quality Measures AMI/AHF: ASA po Prior to arrival: Yes (ASA 81 mg) DVT/VTE Risk/Contraindication: Risk Factor Score Per Nursin RFS Level Per Nursing on Admit: 3=High ADRYAN NAVARRO MD Jul 15, 2016 08:19
[2016-07-15] MEDS ORDERED: CATHETER FLUSH 10 ML SYR IV PRN (08:45)
[2016-07-15] MEDS ORDERED: REGADENOSON 0.4 MG/5 ML SYR (LEXISCAN) IV ONE ×2 (08:49→10:00)
[2016-07-15] MEDS ORDERED: ASPIRIN E.C. 325 MG (ECOTRIN) TABLET PO SCH (09:00)
[2016-07-15] MEDS ORDERED: ENAL10TA PO (11:08)
--- NOTE | 2016-07-15 11:30 | Short Stay Summary-Hospitalist ---
HPI History of Present Illness: HPI/Chief Complaint CC: Chest pain HPI: This a 70[address]WM pt of Dr. Barber who was admitted to [facility] for sudden onset of chest pain, shakiness and sweats last night. Pt has had recurrent chest pain, managed by Dr. Membreno. Patient Interview: Pt states that he feels very good. Pt's PCP is Dr. Brand, and he sees him biannually. Pt uses [facility] pharmacy. Pt states that he has spoken with Dr. Membreno and sees him regularly. Pt denies smoking and drinking much ETOH. Pt states that he has worked many different jobs throughout his career. Pt lives with at home. Pt states that he began to have chest pains, shakiness and sweating last night. Pt will likely DC this afternoon. Physical exam was stable. Plan: Send notes to Dr. Brand. DC today with follow-up Scribed by Bari Greenberg under the direct supervision of Dr. Franco. Source: patient Exam Limitations: no limitations Date Seen 07/15/16 Attending Physician Nohemy Franco DO PCP Anabelle Brand MD Referring Physician Date of Admission Jul 15, 2016 at 02:53 Home Medications & Allergies Home Medications Reviewed patient Home Medication Reconciliation Form Allergies Coded Allergies: No Known Drug Allergies (Verified , 03/19/08) Past Hbvrxlk-Uynpga-Cvopav Hx Patient Social History Marrital Status: Alcohol Use: Rarely Uses Recreational Drug Use: No Smoking Status: Former Smoker Type Used: Cigarettes Physical Abuse Screen: No Sexual Abuse: No Recent Foreign Travel: No Contact w/other who traveled: No Recent Hopitalizations: Yes Recent Infectious Disease Expo: No Immunizations Up To Date Tetanus Booster (TDap): More than 5yrs Date of Pneumonia Vaccine: Mar 13, 2014 Date of Influenza Vaccine: Apr 14, 2013 Seasonal Allergies Seasonal Allergies: No Surgeries HX Surgeries: Yes (cysts removed thumb/scapula) Surgeries: Appendectomy, Coronary Stent, Vascular Surgery (CEA) Respiratory Hx Respiratory Disorders: Yes (USES BIPAP, GETS SOB WITH EXERCISE) Cardiovascular Hx Cardiovascular Disorders: Yes Cardiac Disorders: Coronary Artery Disease, Heart Attack, High Cholesterol Neurological Hx Neurological Disorders: No Reproductive System Hx Reproductive Disorders: No Sexually Transmitted Disease: No HIV/AIDS: No Genitourinary Hx Genitourinary Disorders: No Gastrointestinal Hx Gastrointestinal Disorders: Yes Gastrointestinal Disorders: Gastroesophageal Reflux Musculoskeletal Hx Musculoskeletal Disorders: Yes (Closed reductions) Musculoskeletal Disorders: Fractures Endocrine Hx Endocrine Disorders: No HEENT HX ENT Disorders: No (GLASSES) Cancer Hx Cancer: No Psychosocial Hx Psychiatric Problems: No Integumentary HX Skin/Integumentary Disorder: No Blood Transfusions Hx Blood Disorders: No (ON BLOOD THINNERS) Family Medical History Family Hx: Abdominal aortic aneurysm 03 FATHER (DOESN'T KNOW MUCH ABOUT FAMILY HX) No Family History of: Cancer of colon Review of Systems Constitutional: see HPI EENTM: no symptoms reported Respiratory: short of breath Cardiovascular: chest pain Gastrointestinal: no symptoms reported Genitourinary: no symptoms reported Musculoskeletal: no symptoms reported Skin: no symptoms reported Psychiatric/Neurological: No Symptoms Reported All Other Systems Reviewed Negative Unless Noted: Yes Physical Exam Physical Exam Vital Signs Vital Sign - Last 12Hours 07/15/16 01:11 Temp 99.4 Pulse 84 Resp 19 B/P 134/74 Pulse Ox 96 O2 Delivery Room Air Capillary Refill : Less Than 3 Seconds General Appearance: No Apparent Distress WD/WN Chronically ill Obese Eyes: Bilateral Eye Normal Inspection, Bilateral Eye PERRL HEENT: PERRL/EOMI Normal ENT Inspection Pharynx Normal Neck: Full Range of Motion Normal Inspection Non Tender Supple Carotid Bruit Respiratory: Chest Non Tender Lungs Clear Normal Breath Sounds No Accessory Muscle Use No Respiratory Distress Cardiovascular: Regular Rate, Rhythm No Edema No Gallop No JVD No Murmur Normal Peripheral Pulses Gastrointestinal: Normal Bowel Sounds No Organomegaly No Pulsatile Mass Non Tender Soft Back: Normal Inspection No CVA Tenderness No Vertebral Tenderness Extremity: Normal Capillary Refill Normal Inspection Normal Range of Motion Non Tender No Calf Tenderness No Pedal Edema Neurologic/Psychiatric: Alert Oriented x3 No Motor/Sensory Deficits Normal Mood/Affect Skin: Normal Color Warm/Dry Lymphatic: No Adenopathy Results Results/Procedures Lab Laboratory Tests 07/15/16 01:19 07/15/16 03:58 Short Stay Diagnosis Discharge Diagnosis-Short Stay Admission Diagnosis Assessment: Chest pain Hypertension Hyperlipidemia Recent upper respiratory infections requiring antibiotic use Final Discharge Diagnosis Assessment: Chest pain Hypertension Hyperlipidemia Recent upper respiratory infections requiring antibiotic use Noted history of CAD Conclusion Plan Lexiscan Disposition per Dr. Membreno Copy Copies To 1: ANABELLE BRAND MD Clinical Quality Measures AMI/AHF: ASA po Prior to arrival: Yes (ASA 81 mg) DVT/VTE Risk/Contraindication: Risk Factor Score Per Nursin RFS Level Per Nursing on Admit: 3=High NOHEMY FRANCO DO Jul 15, 2016 11:30
[2016-07-15] MEDS ORDERED: FAMOTIDINE 20 MG (PEPCID) TABLET PO PRN (12:15)
[2016-07-15] MEDS ORDERED: diphenhydrAMINE 25 MG TAB (BENADRYL) PO PRN (12:15)
[2016-07-15] MEDS ORDERED: ATORVASTATIN 40 MG (LIPITOR) TABLET PO SCH (21:00)
[2016-07-15] MEDS ORDERED: CARVEDILOL 3.125 MG (COREG) TABLET PO SCH (21:00)
[2016-07-16] MEDS ORDERED: ASPIRIN E.C. 81 MG (ECOTRIN) TAB PO SCH (09:00)
[2016-07-16] MEDS ORDERED: ENALAPRIL 10 MG (VASOTEC) TAB PO SCH (09:00)
[2016-07-16] MEDS ORDERED: CLOPIDOGREL 75 MG (PLAVIX) TABLET PO SCH (09:00)
--- NOTE | 2016-07-16 19:50 | STRESS TEST ---
PROCEDURE PHYSICIAN: ADRYAN NAVARRO DATE OF PROCEDURE: 07/15/2016 LEXISCAN MYOVIEW STRESS TEST REPORT: REFERRING PHYSICIAN: Dr. Brand BASELINE HEART RATE: 67 BASELINE EKG: Sinus rhythm with no ischemic changes. BASELINE BLOOD PRESSURE: 137/76 IN SUMMARY: The patient was injected with 10.87 mCi of technetium 99 Myoview and the resting images were obtained. Then the patient received 0.4 mg of Lexiscan followed by 32.1 mCi of technetium 99 Myoview. Throughout the test, there were no EKG changes. The resting and stress images were reviewed and compared in the short axis, horizontal long axis, and vertical long axis views. Review of the images showed normal left ventricular size with normal contractility. Calculated ejection fraction 57%. IN CONCLUSION: 1. The patient tolerated Lexiscan well. 2. Diaphragmatic attenuation with no significant ischemia or infarction on SPECT images. 3. Normal left ventricular size with normal contractility. Calculated ejection fraction 57%. Job ID: [id number] Dictated Date: 07/16/2016 10:05:36 Grove Superintendent Date: 07/16/2016 19:43:43 / scott
== END 2016-07-15 12:24 | disposition home or self-care (01) ==
LOC: EDUNIT# 01:11 → ER 01:13 → UNDOADMOB 02:53 → ICU 02:53 → UNDODISOB 14:30
PROVIDERS: ADMIT Internal Medicine; ATTEND Internal Medicine
DX: R07.89 Other chest pain (principal); I10 Essential (primary) hypertension; E78.5 Hyperlipidemia, unspecified; I25.10 Atherosclerotic heart disease of native coronary artery without angina pectoris; J44.9 Chronic obstructive pulmonary disease, unspecified; G47.33 Obstructive sleep apnea (adult) (pediatric); K21.9 Gastro-esophageal reflux disease without esophagitis; E66.9 Obesity, unspecified; Z68.34 Body mass index [BMI] 34.0-34.9, adult; Z87.891 Personal history of nicotine dependence; Z95.5 Presence of coronary angioplasty implant and graft; Z79.899 Other long term (current) drug therapy
CPT/HCPCS: 36415; 71010; 78452; 80048; 80053; 80061; 82550; 83735; 83874; 84100; 84484; 85025; 85610; 85730; 93005; 93017; 93041; 99211; G0378

== ENCOUNTER 2016-08-02 06:00 | Outpatient (CLI) | payer MEDICARE, OTHER ==
[~2016-08-02] VITALS: Ht 177.8 cm; Wt 108.0 kg
[~2016-08-02 06:00] MED LIST changes: +ENAL10TA PO
--- OUTSIDE RECORDS SUMMARY | 2016-08-02 06:03 | XMS REPORT | Continuity of Care Document ---
Author Author [facility] Organization [facility] Address Unknown Phone Unavailable Care Team Providers Care Metal Bonder Name Role Phone ANABELLE BATISTA MD PCP Insurance Providers Payer Name Policy Number Subscriber Name Relationship [employer] [id number] Preet Barton 18 Self / Same As Patient [employer] [id number] Preet Barton 18 Self / Same As Patient Advance Directives Directive Response Recorded Date/Time Advance Directives No 07/05/16 7:00pm Health Care Power of Title Search Manager No 07/05/16 7:00pm Organ Donor Yes 07/05/16 [...] Spr Each Nostril Daily 08/15/13 Discontinued Ipratropium [place] 21 Mcg [place], 1 Spr Each Nostril Daily as needed [...] - 99.5) 07/05/2016 7:00pm Temperature (Calculated Celsius) 36.41131 degrees C (36.4 - 37.5) 07/05/2016 7:00pm [...] 10 inches 07/05/2016 7:00pm Height (Calculated Centimeters) 177.728234 cm 07/05/2016 7:00pm Weight (Pounds) 240 pounds 07/05/2016 7:00pm Weight (Calculated Kilograms) 108.361797 kilograms 07/05/2016 7:00pm Capillary Refill Capillary Refill [...] SELECTED GROUPS OF HIGH RISK PATIENTS. SIXTH CIT[employer]EN OF [employer] CONSENSUS CONFERENCE ON [...] Date Attending Provider Registered Emergency Room [facility] 07/05/16 6:56pm IRASEMA BARTON APRN Recent Diagnosis
[2016-08-17] MEDS ORDERED: SUCR1TAB36 PO (09:27)
[2016-09-06] MEDS ORDERED: HYDR-3812 PO (09:03)
== END 2016-08-02 13:33 ==
LOC: PREOP 06:00
PROVIDERS: ATTEND Surgery
DX: Z01.818 Encounter for other preprocedural examination (principal); R07.89 Other chest pain

== ENCOUNTER 2016-08-13 09:00 | Outpatient (CLI) | payer MEDICARE, OTHER ==
--- OUTSIDE RECORDS SUMMARY | 2016-08-12 05:42 | XMS REPORT | Continuity of Care Document ---
Author Author [facility] Organization [facility] Address Unknown Phone Unavailable Care Team Providers Care Crusher Screen Repairer Name Role Phone ANABELLE BATISTA MD PCP Insurance Providers Payer Name Policy Number Subscriber Name Relationship Wps Medicare [id number] Preet Barton 18 Self / Same As Patient [employer] [id number] Preet Barton 18 Self / Same As Patient Advance Directives Directive Response Recorded Date/Time Advance Directives No 07/05/16 7:00pm Health Care Power of Post Graduate Intern No 07/05/16 7:00pm Organ Donor Yes 07/05/16 [...] Spr Each Nostril Daily 08/15/13 Discontinued Ipratropium [place] 21 Mcg [place], 1 Spr Each Nostril Daily as needed [...] - 99.5) 07/05/2016 7:00pm Temperature (Calculated Celsius) 36.23020 degrees C (36.4 - 37.5) 07/05/2016 7:00pm [...] 10 inches 07/05/2016 7:00pm Height (Calculated Centimeters) 177.388975 cm 07/05/2016 7:00pm Weight (Pounds) 240 pounds 07/05/2016 7:00pm Weight (Calculated Kilograms) 108.473318 kilograms 07/05/2016 7:00pm Capillary Refill Capillary Refill [...] SELECTED GROUPS OF HIGH RISK PATIENTS. SIXTH [place] COL[employer] OF CHEST PHYSICIANS CONSENSUS CONFERENCE ON [...] Date Attending Provider Registered Emergency Room [facility] 07/05/16 6:56pm IRASEMA BARTON APRN Recent Diagnosis
[~2016-08-13] VITALS: Ht 177.8 cm; Wt 108.0 kg
--- OUTSIDE RECORDS SUMMARY | 2016-08-13 09:32 | XMS REPORT | Continuity of Care Document ---
Author Author [facility] Organization [facility] Address Unknown Phone Unavailable Care Team Providers Care Electromedical Service Engineer Name Role Phone ANABELLE BATISTA MD PCP Insurance Providers Payer Name Policy Number Subscriber Name Relationship Wps Medicare [id number] Preet Barton 18 Self / Same As Patient [employer] [id number] Preet Barton 17 Self / Same As Patient Advance Directives Directive Response Recorded Date/Time Advance Directives No 07/05/16 7:00pm Health Care Power of Farmworker Diversified Crops No 07/05/16 7:00pm Organ Donor Yes 07/05/16 [...] Spr Each Nostril Daily 08/15/13 Discontinued Ipratropium [place] 21 Mcg [place], 1 Spr Each Nostril Daily as needed [...] - 99.5) 07/05/2016 7:00pm Temperature (Calculated Celsius) 36.78338 degrees C (36.4 - 37.5) 07/05/2016 7:00pm [...] 10 inches 07/05/2016 7:00pm Height (Calculated Centimeters) 177.643712 cm 07/05/2016 7:00pm Weight (Pounds) 240 pounds 07/05/2016 7:00pm Weight (Calculated Kilograms) 108.651252 kilograms 07/05/2016 7:00pm Capillary Refill Capillary Refill [...] OF HIGH RISK PATIENTS. SIXTH CITIZ[place] COLLEGE OF CHEST PHYSICIANS CONSENSUS CONFERENCE ON [...] Date Attending Provider Registered Emergency Room [facility] 07/05/16 6:56pm IRASEMA BARTON APRN Recent Diagnosis
== END 2016-08-13 09:30 ==
LOC: PREOP 09:00
PROVIDERS: ATTEND Surgery
DX: Z01.818 Encounter for other preprocedural examination (principal); R07.9 Chest pain, unspecified

== ENCOUNTER 2016-08-17 07:32 | Day surgery (SDC) | payer MEDICARE, OTHER ==
[~2016-08-17] VITALS: Ht 177.8 cm; Wt 108.0 kg
--- OUTSIDE RECORDS SUMMARY | 2016-08-17 07:37 | XMS REPORT | Continuity of Care Document ---
Author Author [facility] Organization [facility] Address Unknown Phone Unavailable Care Team Providers Care Capacitor Assembler Name Role Phone ANABELLE BATISTA MD PCP Insurance Providers Payer Name Policy Number Subscriber Name Relationship Wps Medicare [id number] Preet Barton 18 Self / Same As Patient [employer] [id number] Preet Barton 17 Self / Same As Patient Advance Directives Directive Response Recorded Date/Time Advance Directives No 07/05/16 7:00pm Health Care Power of Carbon Capture Power Plant Operator No 07/05/16 7:00pm Organ Donor Yes 07/05/16 [...] Spr Each Nostril Daily 08/15/13 Discontinued Ipratropium [place] 21 Mcg [place], 1 Spr Each Nostril Daily as needed [...] - 99.5) 07/05/2016 7:00pm Temperature (Calculated Celsius) 36.99044 degrees C (36.4 - 37.5) 07/05/2016 7:00pm [...] 10 inches 07/05/2016 7:00pm Height (Calculated Centimeters) 177.542087 cm 07/05/2016 7:00pm Weight (Pounds) 240 pounds 07/05/2016 7:00pm Weight (Calculated Kilograms) 108.210165 kilograms 07/05/2016 7:00pm Capillary Refill Capillary Refill [...] SELECTED GROUPS OF HIGH RISK PATIENTS. SIXTH [place] COLLE[employer] OF CHEST PHYSICIANS CONSENSUS CONFERENCE ON [...] Date Attending Provider Registered Emergency Room [facility] 07/05/16 6:56pm IRASEMA BARTON APRN Recent Diagnosis
--- OUTSIDE RECORDS SUMMARY | 2016-08-17 07:38 | XMS REPORT | Continuity of Care Document ---
Author Author [facility] Organization [facility] Address Unknown Phone Unavailable Care Team Providers Care Cardiac Cath Tech Name Role Phone ANABELLE BATISTA MD PCP Insurance Providers Payer Name Policy Number Subscriber Name Relationship Wps Medicare [id number] Preet Barton 17 Self / Same As Patient [employer] [id number] Preet Barton 17 Self / Same As Patient Advance Directives Directive Response Recorded Date/Time Advance Directives No 07/05/16 7:00pm Health Care Power of Mason Tender Restoration Labor No 07/05/16 7:00pm Organ Donor Yes 07/05/16 [...] Spr Each Nostril Daily 08/15/13 Discontinued Ipratropium [place] 21 Mcg [place], 1 Spr Each Nostril Daily as needed [...] - 99.5) 07/05/2016 7:00pm Temperature (Calculated Celsius) 36.71374 degrees C (36.4 - 37.5) 07/05/2016 7:00pm [...] 10 inches 07/05/2016 7:00pm Height (Calculated Centimeters) 177.974659 cm 07/05/2016 7:00pm Weight (Pounds) 240 pounds 07/05/2016 7:00pm Weight (Calculated Kilograms) 108.976614 kilograms 07/05/2016 7:00pm Capillary Refill Capillary Refill [...] SELECTED GROUPS OF HIGH RISK PATIENTS. SIXTH [place] [employer]LE[employer] OF CHEST PHYSICIANS CONSENSUS CONFERENCE ON [...] Date Attending Provider Registered Emergency Room [facility] 07/05/16 6:56pm IRASEMA BARTON APRN Recent Diagnosis
[2016-08-17] MEDS ORDERED: MIDAZOLAM 2 MG/2 ML (VERSED) VIAL IVP PRN (07:45)
[2016-08-17] MEDS ORDERED: NALOXONE 0.4 MG/ML 1 ML (NARCAN) VIAL IVP PRN (07:45)
[2016-08-17] MEDS ORDERED: HURRICAINE EXT TUBE (BENZOCAINE) XX PRN (07:45)
[2016-08-17] MEDS ORDERED: fentaNYL INJECTION 100 MCG/2 ML AMP IVP PRN (07:45)
[2016-08-17] MEDS ORDERED: NS IV 1000 ML 1,000 ML IV STA (07:45)
[2016-08-17] MEDS ORDERED: FLUMAZENIL (ROMAZICON) 0.1 MG/ML 5 ML VIAL INJ PRN (07:45)
[2016-08-17 08:07] VITALS: BP 141/102
[2016-08-17] MEDS ORDERED: proPOfol 200 MG/20 ML (DIPRIVAN) VIAL IV ONE (08:56)
--- NOTE | 2016-08-17 09:03 | Progress Note-Pre Operative ---
Pre-Operative Progress Note H&P Reviewed The H&P was reviewed, patient examined and no changes noted. Date H&P Reviewed: Aug 17, 2016 Time H&P Reviewed: 09:00 Pre-Operative Diagnosis: Gastritis LUKE MACK DO Aug 17, 2016 09:03
--- NOTE | 2016-08-17 09:24 | Progress Note-Post Operative ---
Post-Operative Progess Note Process Assistant none Pre-Operative Diagnosis Gastritis Post-Operative Diagnosis Gastritis Gastric Ulcers Small Hiatal Hernia Post-Op Procedure Note Date of Procedure: Aug 17, 2016 Name of Procedure: EGD with bx Anesthesia Type iv sedation Estimated blood loss (mL): scant Specimen(s) collected 1. Duodenal bx 2. Bx of gastric ulcer 3. Antral bx LUKE MACK DO Aug 17, 2016 09:24
[2016-08-17] MEDS ORDERED: SUCR1TAB36 PO (09:27)
--- NOTE | 2016-08-17 09:30 | Endoscopy Discharge Instruct ---
Findings Findings 1.: Gastric Ulcer, Gastritis, Other Findings (Duodenal inflamation. Small Hiatal hernia) Discharge Instructions - Activity: You might feel a little sleepy until tomorrow. This is due to the medicine you received to relax you. Until tomorrow, you should: NOT drive a car, operate machinery or power tools. NOT drink any alcoholic beverages. NOT make any important decisions or sign importortant papers. Do not return to work until tomorrow, unless otherwise instructed. Resume previous activities tomorrow. Diet: Start by taking liquids. If you tolerate liquids, advance to solid food. Instructions: 1.: EGD in 6-8 weeks Notify Physician - If you experience excessive bleeding, unusual abdominal pain, fever, or chest pain, contact your doctor immediately. Phone number [phone] Follow-Up: Follow Up: Weeks (one week) - I have received and understand the above instructions and will call my doctor if I have any further questions. Patient Signature Date Nurse Signature Other (Relationship) LUKE MACK DO Aug 17, 2016 09:30
[2016-08-17 09:45] VITALS: BP 135/63
[2016-08-17 10:15] VITALS: BP 138/83
[2016-08-17] MEDS ORDERED: HURRICAINE EXT TUBE (BENZOCAINE) ONE (10:29)
[2016-08-17 10:30] VITALS: BP 138/83
--- NOTE | 2016-08-17 15:05 | OPERATIVE REPORT ---
PROCEDURE PHYSICIAN: LUKE PAPPAS DATE OF PROCEDURE: 08/17/2016 PREOPERATIVE DIAGNOSIS: Chronic unspecified gastritis. POSTOPERATIVE DIAGNOSIS: 1. Gastritis. 2. Gastric ulcers. 3. Duodenitis. 4. Small hiatal hernia. PROCEDURE: Esophagogastroduodenoscopy with biopsy of the duodenum antrum and of ulcer. SURGEON: Dr. Pappas PUNCH PRESS FEEDER: None. ANESTHESIA: IV sedation. SPECIMEN: 1. One biopsy specimen from the duodenum. 2. One biopsy specimen from the edge of the ulcer. 3. One biopsy specimen of the antrum. BLOOD LOSS: Scant. FLUIDS: Minimal. POSTOPERATIVE CONDITION: Stable INDICATIONS FOR THE PROCEDURE: The patient is a 70-year-old male who has been having pain, almost like a heartburn and other chest pain and through by his cook taco he needed an EGD. FINDINGS: The patient had pretty severe inflammation in the stomach. He had a couple of ulcers. Pictures were taken. He also had some inflammation in the duodenum and he had a small hiatal hernia, as well as a little bit of inflammation down at the GE junction. PROCEDURE NOTE: After informed consent was obtained patient brought to the endoscopy suite, placed in the left lateral position. He was administered IV sedation and monitored by the HYDROELECTRIC PLANT MAINTAINER. The scope was inserted down the oropharynx into the esophagus and down in the stomach. Once into the stomach could see a lot of redness and then noted some ulcers, took some pictures and actually looked like there was maybe some old bleeding. Took a picture this. Pushed into the duodenum. Again there was inflamed in here. Did not really see any ulcers, but did a biopsy in the first portion of the duodenum, and then slowly backed out. Elected to do a biopsy of one of the larger ulcers in the stomach. Biopsied the edge and then also elected to get a biopsy of the antrum. Minimal bleeding from the edge of the ulcer, this stopped. Retroflexed to look at the cardia and could see a small hiatal hernia. Then slowly withdrew the scope into the esophagus. The GE junction was a little bit inflamed as well with a little bit of bleeding here and then slowly withdrew the scope up the esophagus - looked okay. No ulcers, no change at the GE junction, the Z line. Pulled this scope up an out. The patient tolerated the procedure well. He was transferred to recover room in stable condition. Job ID: [id number] Dictated Date: 08/17/2016 09:33:28 Water Resource Engineering Specialist Date: 08/17/2016 14:53:31 / maddy AVILA
== END 2016-08-17 10:30 | disposition home or self-care (01) ==
LOC: ENDO 07:32
PROVIDERS: ATTEND Surgery
DX: K29.70 Gastritis, unspecified, without bleeding (principal); K25.9 Gastric ulcer, unspecified as acute or chronic, without hemorrhage or perforation; K29.80 Duodenitis without bleeding; K44.9 Diaphragmatic hernia without obstruction or gangrene
CPT/HCPCS: 88305; 88342

== ENCOUNTER 2016-09-02 05:33 | Outpatient (CLI) | payer MEDICARE, OTHER ==
[~2016-09-02] VITALS: Ht 177.8 cm; Wt 108.0 kg
[~2016-09-02 05:33] MED LIST changes: +SUCR1TAB36 PO
[2016-09-06] MEDS ORDERED: HYDR-3812 PO (09:03)
== END 2016-09-02 10:13 ==
LOC: PREOP 05:33
PROVIDERS: ATTEND Surgery
DX: Z01.818 Encounter for other preprocedural examination (principal); L98.9 Disorder of the skin and subcutaneous tissue, unspecified

== ENCOUNTER 2016-09-06 06:43 | Day surgery (SDC) | payer MEDICARE, OTHER ==
[~2016-09-06] VITALS: Ht 177.8 cm; Wt 108.0 kg
[2016-09-06] MEDS ORDERED: LIDOCAINE PF 2% 10 ML (XYLOCAINE) AMP ONE (07:11)
[2016-09-06] MEDS ORDERED: LACTATED RINGERS 1,000 ML IV PRN (07:11)
[2016-09-06] MEDS ORDERED: proPOfol 200 MG/20 ML (DIPRIVAN) VIAL IV ONE (07:11)
[2016-09-06] MEDS ORDERED: MIDAZOLAM 2 MG/2 ML (VERSED) VIAL ONE (07:11)
[2016-09-06] MEDS ORDERED: ONDANSETRON 4 MG/2 ML (SDV) Z0FRAN ONE (07:11)
[2016-09-06] MEDS ORDERED: fentaNYL INJECTION 100 MCG/2 ML AMP ONE (07:11)
[2016-09-06] MEDS ORDERED: BUP/EPI 0.25% 1:200,000 (MARCAINE) 30 ML VIAL ONE (07:18)
[2016-09-06] MEDS ORDERED: LIDOCAINE/EPI 1%-1:100,000 (XYLOCAINE) 20ML ONE (07:19)
[2016-09-06 07:31] VITALS: BP 145/92
[2016-09-06] MEDS ORDERED: ceFAZolin 2 GM/50 ML NS 50 ML IV ONE (08:16)
--- NOTE | 2016-09-06 08:22 | Progress Note-Pre Operative ---
Pre-Operative Progress Note H&P Reviewed The H&P was reviewed, patient examined and no changes noted. Date H&P Reviewed: Sep 06, 2016 Time H&P Reviewed: 08:11 Pre-Operative Diagnosis: right mosque/face mass LUKE MACK DO Sep 06, 2016 08:22
[2016-09-06] MEDS ORDERED: HYDR-3812 PO (09:03)
--- NOTE | 2016-09-06 09:06 | Discharge Inst-Surgical ---
Discharge Inst-Surgical Depart Medication/Instructions New, Converted or Re-Newed RX: RX Given to Pt/Family Patient Instructions Follow up Appt: Make appointment for 1 week. [phone] Instructions: No strenuous activity. May shower in 24 hours, no tub bath or soaking. Use incentive spirometer at home as directed. No Smoking Skin/Wound Care: May remove bandages. Glue will fall off on its own. Symptoms to Report: Appetite Changes, Extremity Discoloration, Numbness/Tingling, Swelling Increased , Bleeding Excessive, Eyesight Changes, Pain Increased, Urine Color Change, Constipation(Persistent), Fever over 101 degree F, Pain/Pressure in chest, Urinating Difficulty, Cough Up/Vomit Blood, Heart Beat Irreg/Pounding, Pain/ Pressure in jaw, Vaginal Bleeding Increase, Cramps in feet or legs, Lightheadedness, Pain/Pressure in shoulder, Diarrhea(Persistent), Memory Changes Suddenly, Questions/Concerns, Weight gain consecutive days, Dizziness/ Fainting, Nausea/Vomiting, Shortness of Breath, Weight gain over 2 pounds If questions or concerns contact your physician Or seek help at emergency department. Activity Activity as Tolerated: Yes Driving Instructions: No Driving/Refer to Dr. Huber Discharge Diet: No Restrictions If Any Problems/Questions/Issu: Contact Your Physician, Go to Emergency Room Skin/Wound Care Infection Signs and Symptoms: Increased Redness, Foul Odor of Wound, Increased Drainage, Increased Swelling, Temperature Above 101 F Bathing Instructions: Shower Stitches/[place]/Dermabond Dis: LUKE Cardozo DO Sep 06, 2016 09:05
--- NOTE | 2016-09-06 09:07 | Progress Note-Post Operative ---
Post-Operative Progess Note Flare Stitcher None Pre-Operative Diagnosis right zoroastrianism/face mass Post-Operative Diagnosis same pending pathology Post-Op Procedure Note Date of Procedure: Sep 06, 2016 Name of Procedure: Excision of right facial mass Anesthesia Type MAC Estimated blood loss (mL): scant Specimen(s) collected right facial mass and surrounding skin LUKE MACK DO Sep 06, 2016 09:07
[2016-09-06] MEDS ORDERED: ONDANSETRON 4 MG/2 ML (SDV) Z0FRAN IVP PRN (09:15)
[2016-09-06] MEDS ORDERED: MEPERIDINE (DEMEROL) INJ 50 MG/ML IVP PRN (09:15)
[2016-09-06] MEDS ORDERED: morphine INJ 10 MG/ML 1ML (SYR OR VIAL) IVP PRN (09:15)
[2016-09-06 09:35] VITALS: BP 125/83
--- NOTE | 2016-09-06 09:53 | OPERATIVE REPORT ---
PROCEDURE PHYSICIAN: LUKE PAPPAS DATE OF PROCEDURE: 09/06/2016 PREOPERATIVE DIAGNOSIS: Right-sided facial mass. POSTOPERATIVE DIAGNOSIS: 1. Right-sided facial mass. 2. Pending pathology. PROCEDURE: Excision of right-sided facial mass at 6.1 cm x 2.3 cm elliptical incision with 0.5 cm undermining in all directions. SURGEON: Dr. Pappas WOOD SASH AND FRAME CARPENTER: None. ANESTHESIA: IV sedation by the GLASS VIAL BENDING CONVEYOR FEEDER, with local injection by myself. BLOOD LOSS: Scant. INDICATION FOR THE PROCEDURE: The patient is a 70-year-old male who has a large ulcerated lesion just in front and above the on the right side up by the mormon area. Most likely a cancer with need to get this removed. FINDINGS: Facial mass removed and sent to pathology. PROCEDURE NOTE: After informed consent was obtained patient brought to the operating room, placed on the table in supine position. He was sterilely prepped and draped in the normal fashion. Local lidocaine used to infiltrate the skin around this mass, elliptical type incision. Made an incision with number 15 blade, carried down through skin into subcutaneous tissue, then deepened down the subcutaneous tissue Bovie electrocautery going down and under and around this mass, removing it en bloc. Measured the incision 6.1 cm long x 2.3 cm wide and then undermined the skin in all directions by 0.5 cm. Brought this together and then closed in 2 layers closing the deep layer with a 3-0 Vicryl, 3 interrupted sutures, then closed the skin with 4-0 undyed Monocryl running in the subcuticular fashion. The area was cleaned and dried. Dermabond was placed. The patient then transferred to recovery in stable condition. Sponge, instrument and needle correct at the end of the case. Job ID: [id number] Dictated Date: 09/06/2016 09:20:10 Energy Sales Broker Date: 09/06/2016 09:46:12 / maddy
[2016-09-06 10:05] VITALS: BP 123/60
[2016-09-06 10:35] VITALS: BP 123/60
[2016-09-06 10:40] VITALS: BP 123/60
--- OUTSIDE RECORDS SUMMARY | 2016-09-21 16:39 | XMS REPORT | Continuity of Care Document ---
Author Author [facility] Organization [facility] Address Unknown Phone Unavailable Allergies Active Description Code Type Severity Reaction Onset Reported/Identified Relationship to Patient Clinical Status Yes No Known Drug Allergies [id number] Drug Allergy Unknown N/ A 08/13/2016 Medications Problems Date Dx Coded Attending Type Code Diagnosis Diagnosed By 12/25/2010 Ot 211.3 12/25/2010 Ot 448.9 12/25/2010 Ot 569.0 06/19/2011 Ot 486 PNEUMONIA, ORGANISM NOS 06/19/2011 Ot 780.60 FEVER, UNSPECIFIED 08/17/2013 JULIO CÉSAR HOWELL MD Ot 433.10 CAROTID ARTERY OCCLUSION W O CEREBRAL IN 08/17/2013 DANTE SAEZ, JULIO CÉSAR Lemus Ot V64.3 NO PROC FOR REASONS NEC 09/17/2015 MELANIE SAEZ, ADRYAN Wilkins Ot 272.4 09/17/2015 MELANIE SAEZ, ADRYAN Wilkins Ot 278.00 09/17/2015 MELANIE SAEZ, ADRYAN Wilkins Ot 401.9 09/17/2015 ADRYAN NAVARRO MD Ot 414.01 09/17/2015 ADRYAN NAVARRO MD Ot 433.10 09/17/2015 ADRYAN NAVARRO MD Ot 272.4 09/17/2015 MELANIE SAEZ, ADRYAN Wilkins Ot 278.00 09/17/2015 ADRYAN NAVARRO MD Ot 397.0 09/17/2015 ADRYAN NAVARRO MD Ot 401.9 09/17/2015 MELANIE SAEZ, ADRYAN Wilikns Ot 414.00 09/17/2015 ADRYAN NAVARRO MD Ot 424.0 09/17/2015 JULIO CÉSAR HOWELL MD Ot 433.10 09/17/2015 JULIO CÉSAR HOWELL MD Ot V72.81 09/17/2015 JULIO CÉSAR HOWELL MD Ot V72.83 09/17/2015 JULIO CÉSAR HOWELL MD Ot V72.84 09/17/2015 JULIO CÉSAR HOWELL MD Ot V74.8 09/18/2015 ADRYAN NAVARRO MD Ot E78.2 09/18/2015 ADRYAN NAVARRO MD Ot I10 09/18/2015 ADRYAN NAVARRO MD Ot I25.10 09/18/2015 ADRYAN NAVARRO MD Ot I65.23 09/18/2015 ADRYAN NAVARRO MD Ot R06.09 09/23/2015 ADRYAN NAVARRO MD Ot E78.2 09/23/2015 ADRYAN NAVARRO MD Ot I10 09/23/2015 ADRYAN NAVARRO MD Ot I25.10 09/23/2015 ADRYAN NAVARRO MD Ot I65.23 09/23/2015 ADRYAN NAVARRO MD Ot R06.09 10/07/2015 ADRYAN NAVARRO MD Ot E78.2 MIXED HYPERLIPIDEMIA 10/07/2015 ADRYAN NAVARRO MD Ot I10 ESSENTIAL (PRIMARY) HYPERTENSION 10/07/2015 ADRYAN NAVARRO MD Ot I25.10 ATHSCL HEART DISEASE OF [place] CORONARY 10/07/2015 ADRYAN NAVARRO MD Ot I65.23 OCCLUSION AND STENOSIS OF BILATERAL [place] 10/07/2015 ADRYAN NAVARRO MD Ot R06.09 OTHER FORMS OF DYSPNEA 10/09/2015 ADRYAN NAVARRO MD Ot E66.9 OBESITY, UNSPECIFIED 10/09/2015 ADRYAN NAVARRO MD Ot E78.5 HYPERLIPIDEMIA, UNSPECIFIED 10/09/2015 ADRYAN NAVARRO MD Ot G47.33 OBSTRUCTIVE SLEEP APNEA (ADULT) (PEDIATR 10/09/2015 ADRYAN NAVARRO MD Ot I10 ESSENTIAL (PRIMARY) HYPERTENSION 10/09/2015 ADRYAN NAVARRO MD Ot I25.10 ATHSCL HEART DISEASE OF [place] CORONARY 10/09/2015 ADRYAN NAVARRO MD Ot J44.9 CHRONIC OBSTRUCTIVE PULMONARY DISEASE, U 10/09/2015 ADRYAN NAVARRO MD Ot R94.39 ABNORMAL RESULT OF OTHER CARDIOVASCULAR 10/09/2015 ADRYAN NAVARRO MD Ot Z68.33 BODY MASS INDEX (BMI) 33.0-33.9, ADULT 10/09/2015 ADRYAN NAVARRO MD Ot Z79.899 OTHER LEARNING DEVELOPMENT SPECIALIST (CURRENT) DRUG THERAPY 10/09/2015 ADRYAN NAVARRO MD Ot Z95.5 PRESENCE OF CORONARY ANGIOPLASTY IMPLANT 07/05/2016 IRASEMA BARTON APRN Ot I25.10 ATHSCL HEART DISEASE OF [place] CORONARY 07/05/2016 IRASEMA BARTON APRN Ot I25.2 OLD MYOCARDIAL INFARCTION 07/05/2016 IRASEMA BARTON APRN Ot K30 FUNCTIONAL DYSPEPSIA 07/05/2016 IRASEMA BARTON APRN Ot R07.9 CHEST PAIN, UNSPECIFIED 07/05/2016 IRASEMA BARTON APRN Ot Z79.02 HALFWAY (CURRENT) USE OF ANTITHROMBOTI 07/05/2016 IRASEMA BARTON APRN Ot Z79.82 LEARNING DEVELOPMENT SPECIALIST (CURRENT) USE OF ASPIRIN 07/05/2016 IRASEMA BARTON APRN Ot Z79.899 OTHER HALFWAY (CURRENT) DRUG THERAPY 07/05/2016 IRASEMA BARTON APRN Ot Z95.5 PRESENCE OF CORONARY ANGIOPLASTY IMPLANT 07/05/2016 ADRYAN NAVARRO MD Ot 272.4 HYPERLIPIDEMIA NEC/NOS 07/05/2016 ADRYAN NAVARRO MD Ot 278.00 OBESITY, NOS 07/05/2016 ADRYAN NAVARRO MD Ot 401.9 HYPERTENSION NOS 07/05/2016 ADRYAN NAVARRO MD Ot 414.01 CORONARY ATHEROSCLEROSIS OF [place] CORON 07/05/2016 ADRYAN NAVARRO MD Ot 433.10 CAROTID ARTERY OCCLUSION W O CEREBRAL IN 07/05/2016 ADRYAN NAVARRO MD Ot 272.4 HYPERLIPIDEMIA NEC/NOS 07/05/2016 ADRYAN NAVARRO MD Ot 278.00 OBESITY, NOS 07/05/2016 ADRYAN NAVARRO MD Ot 397.0 TRICUSPID VALVE DISEASE 07/05/2016 ADRYAN NAVARRO MD Ot 401.9 HYPERTENSION NOS 07/05/2016 ADRYAN NAVARRO MD Ot 414.00 CORON ATHEROSCLER NOS TYPE VESSEL, NATIV 07/05/2016 ADRYAN NAVARRO MD Ot 424.0 MITRAL VALVE DISORDER 07/05/2016 JULIO CÉSAR HOWELL MD Ot 433.10 CAROTID ARTERY OCCLUSION W O CEREBRAL IN 07/05/2016 JULIO CÉSAR HOWELL MD Ot V72.81 [id number] CARDIOVASCULAR 07/05/2016 JULIO CÉSAR HOWELL MD Ot V72.83 EXAM PRE-OPERATIVE NEC 07/05/2016 JULIO CÉSAR HOWELL MD Ot V72.84 EXAM PRE-OPERATIVE NOS 07/05/2016 DANTE SAEZ, JULIO CÉSAR Allan Ot V74.8 SCREEN-BACTERIAL DIS NEC 07/05/2016 ADRYAN NAVARRO MD Ot E78.2 MIXED HYPERLIPIDEMIA 07/05/2016 ADRYAN NAVARRO MD Ot I10 ESSENTIAL (PRIMARY) HYPERTENSION 07/05/2016 ADRYAN NAVARRO MD Ot I25.10 ATHSCL HEART DISEASE OF [place] CORONARY 07/05/2016 ADRYAN NAVARRO MD Ot I65.23 OCCLUSION AND STENOSIS OF [place]ILATERAL [place] 07/05/2016 ADRYAN NAVARRO MD Ot R06.09 OTHER FORMS OF DYSPNEA 07/06/2016 IRASEMA BARTON APRN Ot I25.10 ATHSCL HEART DISEASE OF [place] CORONARY 07/06/2016 IRASEMA BARTON APRN Ot I25.2 OLD MYOCARDIAL INFARCTION 07/06/2016 IRASEMA BARTON APRN Ot K30 FUNCTIONAL DYSPEPSIA 07/06/2016 IRASEMA BARTON APRN Ot R07.9 CHEST PAIN, UNSPECIFIED 07/06/2016 IRASEMA BARTON APRN Ot Z79.02 LEARNING DEVELOPMENT SPECIALIST (CURRENT) USE OF ANTITHROMBOTI 07/06/2016 IRASEMA BARTON APRN Ot Z79.82 LEARNING DEVELOPMENT SPECIALIST (CURRENT) USE OF ASPIRIN 07/06/2016 IRASEMA BARTON APRN Ot Z79.899 OTHER LEARNING DEVELOPMENT SPECIALIST (CURRENT) DRUG THERAPY 07/06/2016 IRASEMA BARTON APRN Ot Z95.5 PRESENCE OF CORONARY ANGIOPLASTY IMPLANT 07/15/2016 ADRYAN NAVARRO MD Ot 272.4 HYPERLIPIDEMIA NEC/NOS 07/15/2016 ADRYAN NAVARRO MD Ot 278.00 OBESITY, NOS 07/15/2016 ADRYAN NAVARRO MD Ot 401.9 HYPERTENSION NOS 07/15/2016 ADRYAN NAVARRO MD Ot 414.01 CORONARY ATHEROSCLEROSIS OF [place] CORON 07/15/2016 ADRYAN NAVARRO MD Ot 433.10 CAROTID ARTERY OCCLUSION W O CEREBRAL IN 07/15/2016 ADRYAN NAVARRO MD Ot 272.4 HYPERLIPIDEMIA NEC/NOS 07/15/2016 ADRYAN NAVARRO MD Ot 278.00 OBESITY, NOS 07/15/2016 ADRYAN NAVARRO MD Ot 397.0 TRICUSPID VALVE DISEASE 07/15/2016 ADRYAN NAVARRO MD Ot 401.9 HYPERTENSION NOS 07/15/2016 ADRYAN NAVARRO MD Ot 414.00 CORON ATHEROSCLER NOS TYPE VESSEL, NATIV 07/15/2016 ADRYAN NAVARRO MD Ot 424.0 MITRAL VALVE DISORDER 07/15/2016 JULIO CÉSAR HOWELL MD Ot 433.10 CAROTID ARTERY OCCLUSION W O CEREBRAL IN 07/15/2016 JULIO CÉSAR HOWELL MD Ot V72.81 [id number] CARDIOVASCULAR 07/15/2016 JULIO CÉSAR HOWELL MD Ot V72.83 EXAM PRE-OPERATIVE NEC 07/15/2016 JULIO CÉSAR HOWELL MD Ot V72.84 EXAM PRE-OPERATIVE NOS 07/15/2016 JULIO CÉSAR HOWELL MD Ot V74.8 SCREEN-BACTERIAL DIS NEC 07/15/2016 ADRYAN NAVARRO MD Ot E78.2 MIXED HYPERLIPIDEMIA 07/15/2016 ADRYAN NAVARRO MD Ot I10 ESSENTIAL (PRIMARY) HYPERTENSION 07/15/2016 ADRYAN NAVARRO MD Ot I25.10 ATHSCL HEART DISEASE OF [place] CORONARY 07/15/2016 ADRYAN NAVARRO MD Ot I65.23 OCCLUSION AND STENOSIS OF [place]AL [place] 07/15/2016 ADRYAN NAVARRO MD Ot R06.09 OTHER FORMS OF DYSPNEA 07/15/2016 AYDE FRANCO DO Ot E66.9 OBESITY, UNSPECIFIED 07/15/2016 AYDE FRANCO DO Ot E78.5 HYPERLIPIDEMIA, UNSPECIFIED 07/15/2016 AYDE FRANCO DO Ot G47.33 OBSTRUCTIVE SLEEP APNEA (ADULT) (PEDIATR 07/15/2016 AYDE FRANCO DO Ot I10 ESSENTIAL (PRIMARY) HYPERTENSION 07/15/2016 AYDE FRANCO DO Ot I25.10 ATHSCL HEART DISEASE OF [place] CORONARY 07/15/2016 AYDE FRANCO DO Ot J44.9 CHRONIC OBSTRUCTIVE PULMONARY DISEASE, U 07/15/2016 AYDE FRANCO DO Ot K21.9 GASTRO-ESOPHAGEAL REFLUX DISEASE WITHOUT 07/15/2016 AYDE FRANCO DO Ot R07.89 OTHER CHEST PAIN 07/15/2016 AYDE FRANCO DO Ot Z68.34 BODY MASS INDEX (BMI) 34.0-34.9, ADULT 07/15/2016 AYDE FRANCO DO Ot Z79.899 OTHER LEARNING DEVELOPMENT SPECIALIST (CURRENT) DRUG THERAPY 07/15/2016 AYDE FRANCO DO Ot Z87.891 PERSONAL HISTORY OF NICOTINE DEPENDENCE 07/15/2016 AYDE FRANCO DO Ot Z95.5 PRESENCE OF CORONARY ANGIOPLASTY IMPLANT 07/15/2016 AYDE FRANCO DO Ot E66.9 OBESITY, UNSPECIFIED 07/15/2016 AYDE FRANOC DO Ot E78.5 HYPERLIPIDEMIA, UNSPECIFIED 07/15/2016 AYDE FRANCO DO Ot G47.33 OBSTRUCTIVE SLEEP APNEA (ADULT) (PEDIATR 07/15/2016 AYDE FRANCO DO Ot I10 ESSENTIAL (PRIMARY) HYPERTENSION 07/15/2016 AYDE FRANCO DO Ot I25.10 ATHSCL HEART DISEASE OF [place] CORONARY 07/15/2016 AYDE FRANCO DO Ot J44.9 CHRONIC OBSTRUCTIVE PULMONARY DISEASE, U 07/15/2016 AYDE FRANCO DO Ot K21.9 GASTRO-ESOPHAGEAL REFLUX DISEASE WITHOUT 07/15/2016 AYDE FRANCO DO Ot R07.89 OTHER CHEST PAIN 07/15/2016 AYDE FRANCO DO Ot Z68.34 BODY MASS INDEX (BMI) 34.0-34.9, ADULT 07/15/2016 AYDE FRANCO DO Ot Z79.899 OTHER LEARNING DEVELOPMENT SPECIALIST (CURRENT) DRUG THERAPY 07/15/2016 AYDE FRANCO DO Ot Z87.891 PERSONAL HISTORY OF NICOTINE DEPENDENCE 07/15/2016 AYDE FRANCO DO Ot Z95.5 PRESENCE OF CORONARY ANGIOPLASTY IMPLANT 08/03/2016 LUKE MACK DO Ot R07.89 OTHER CHEST PAIN 08/03/2016 LUKE MACK DO B Ot Z01.818 ENCOUNTER FOR OTHER PREPROCEDURAL EXAMIN 08/13/2016 LUKE MACK DO Ot R07.9 CHEST PAIN, UNSPECIFIED 08/13/2016 LUKE MACK DO Ot Z01.818 ENCOUNTER FOR OTHER PREPROCEDURAL EXAMIN 08/17/2016 LUKE MACK DO Ot K25.9 GASTRIC ULCER, UNSP ACUTE OR CHRONIC, 08/17/2016 LUKE MACK DO Ot K29.70 GASTRITIS, UNSPECIFIED, WITHOUT BLEEDING 08/17/2016 LUKE MACK DO Ot K29.80 DUODENITIS WITHOUT BLEEDING 08/17/2016 LUKE MACK DO Ot K44.9 DIAPHRAGMATIC HERNIA WITHOUT OBSTRUCTION 08/18/2016 DELMAN DO, LUKE B Ot K25.9 GASTRIC ULCER, UNSP ACUTE OR CHRONIC, 08/18/2016 THERONELEUTERIO BAIN LUKE B Ot K29.70 GASTRITIS, UNSPECIFIED, WITHOUT BLEEDING 08/18/2016 SHERRILL MACK DOIC B Ot K29.80 DUODENITIS WITHOUT BLEEDING 08/18/2016 FREDERICK BAIN LUKE B Ot K44.9 DIAPHRAGMATIC HERNIA WITHOUT OBSTRUCTION 08/24/2016 THERONELEUTERIO LUKE BAIN B Ot K25.9 GASTRIC ULCER, UNSP ACUTE OR CHRONIC, 08/24/2016 SHERRILL MACK DOIC B Ot K29.70 GASTRITIS, UNSPECIFIED, WITHOUT BLEEDING 08/24/2016 THERONELEUTERIO BAIN LUKE B Ot K29.80 DUODENITIS WITHOUT BLEEDING 08/24/2016 SHERRILL MACK DOIC B Ot K44.9 DIAPHRAGMATIC HERNIA WITHOUT OBSTRUCTION 09/02/2016 LUKE MACK DO B Ot L98.9 DISORDER OF THE SKIN AND SUBCUTANEOUS TI 09/02/2016 LUKE MACK DO Ot Z01.818 ENCOUNTER FOR OTHER PREPROCEDURAL EXAMIN 09/06/2016 LUKE MACK DO B Ot L85.8 OTHER SPECIFIED EPIDERMAL THICKENING 09/08/2016 SHERRILL MACK DOIC B Ot L85.8 OTHER SPECIFIED EPIDERMAL THICKENING 09/15/2016 LUKE MACK DO B Ot L85.8 OTHER SPECIFIED EPIDERMAL THICKENING Procedures Results Test Result Range Complete blood count (CBC) with automated white blood cell (WBC) differential - 07/05/16 19:10 Blood leukocytes automated count (number/volume) 9.1 10*3/ uL 4.3-11.0 Blood erythrocytes automated count (number/volume) 4.65 10*6 /uL 4.35-5.85 Venous blood hemoglobin measurement (mass/volume) 15.1 g/dL 13.3-17.7 Blood hematocrit (volume fraction) 44 % 40-54 Automated erythrocyte mean corpuscular volume 94 [foz_us] 80-99 Automated erythrocyte mean corpuscular hemoglobin (mass per erythrocyte) 33 pg 25-34 Automated erythrocyte mean corpuscular hemoglobin concentration measurement ( mass/volume) 35 g/dL 32-36 Automated erythrocyte distribution width ratio 13.2 % 10.0-14.5 Automated blood platelet count (count/volume) 318 10*3/uL 130-400 Automated blood platelet mean volume measurement 8.9 [foz_us ] 7.4-10.4 Automated blood neutrophils/100 leukocytes 69 % 42-75 Automated blood lymphocytes/100 leukocytes 17 % 12-44 Blood monocytes/100 leukocytes 9 % 0-12 Automated blood eosinophils/100 leukocytes 5 % 0-10 Automated blood basophils/100 leukocytes 0 % 0-10 Blood neutrophils automated count (number/volume) 6.3 10*3 1.8-7.8 Blood lymphocytes automated count (number/volume) 1.6 10*3 1.0-4.0 Blood monocytes automated count (number/volume) 0.9 10*3 0.0-1.0 Automated eosinophil count 0.4 10*3/uL 0.0-0.3 Automated blood basophil count (count/volume) 0.0 10*3/uL 0.0-0.1 PT panel in platelet poor plasma by coagulation assay - 07/05/16 19:10 Prothrombin time (PT) in platelet poor plasma by coagulation assay 13.2 s 12.2-14.7 INR in platelet poor plasma or blood by coagulation assay 1.0 0.8-1.4 Activated partial thromboplastin time (aPTT) in platelet poor plasma bycoagulation assay - 07/05/16 19:10 Activated partial thromboplastin time (aPTT) in platelet poor plasma bycoagulation assay 31 s 24-35 Comprehensive metabolic panel - 07/05/16 19:10 Serum or plasma sodium measurement (moles/volume) 131 mmol/ L 135-145 Serum or plasma potassium measurement (moles/volume) 4.2 mmol/L 3.6-5.0 Serum or plasma chloride measurement (moles/volume) 101 mmol /L 98-107 Carbon dioxide 19 mmol/L 21-32 Serum or plasma anion gap determination (moles/volume) 11 mmol/L 5-14 Serum or plasma urea nitrogen measurement (mass/volume) 11 mg/dL 7-18 Serum or plasma creatinine measurement (mass/volume) 0.93 mg /dL 0.60-1.30 Serum or plasma urea nitrogen/creatinine mass ratio 12 NRG Serum or plasma creatinine measurement with calculation of estimated glomerular filtration rate > NRG Serum or plasma glucose measurement (mass/volume) 111 mg/dL 70-105 Serum or plasma calcium measurement (mass/volume) 9.0 mg/dL 8.5-10.1 Serum or plasma total bilirubin measurement (mass/volume) 0.4 mg/dL 0.1-1.0 Serum or plasma alkaline phosphatase measurement (enzymatic activity/volume) 112 U/L 40-136 Serum or plasma aspartate aminotransferase measurement (enzymatic activity/ volume) 22 U/L 5-34 Serum or plasma alanine aminotransferase measurement (enzymatic activity/volume ) 34 U/L 0-55 Serum or plasma protein measurement (mass/volume) 6.6 g/dL 6.4-8.2 Serum or plasma albumin measurement (mass/volume) 4.0 g/dL 3.2-4.5 Magnesium - 07/05/16 19:10 Magnesium 2.1 mg/dL 1.8-2.4 Serum or plasma troponin i.cardiac measurement (mass/volume) - 07/05/16 19:10 Serum or plasma troponin i.cardiac measurement (mass/volume) < ng/mL <0.30 Myoglobin, serum - 07/05/16 19:10 Myoglobin, serum 66.2 ng/mL 10.0-92.0 Serum or plasma troponin i.cardiac measurement (mass/volume) - 07/05/16 20:10 Serum or plasma troponin i.cardiac measurement (mass/volume) < ng/mL <0.30 Complete blood count (CBC) with automated white blood cell (WBC) differential - 07/15/16 01:19 Blood leukocytes automated count (number/volume) 9.9 10*3/ uL 4.3-11.0 Blood erythrocytes automated count (number/volume) 4.64 10*6 /uL 4.35-5.85 Venous blood hemoglobin measurement (mass/volume) 15.2 g/dL 13.3-17.7 Blood hematocrit (volume fraction) 43 % 40-54 Automated erythrocyte mean corpuscular volume 93 [foz_us] 80-99 Automated erythrocyte mean corpuscular hemoglobin (mass per erythrocyte) 33 pg 25-34 Automated erythrocyte mean corpuscular hemoglobin concentration measurement ( mass/volume) 35 g/dL 32-36 Automated erythrocyte distribution width ratio 13.1 % 10.0-14.5 Automated blood platelet count (count/volume) 328 10*3/uL 130-400 Automated blood platelet mean volume measurement 9.3 [foz_us ] 7.4-10.4 Automated blood neutrophils/100 leukocytes 72 % 42-75 Automated blood lymphocytes/100 leukocytes 16 % 12-44 Blood monocytes/100 leukocytes 9 % 0-12 Automated blood eosinophils/100 leukocytes 3 % 0-10 Automated blood basophils/100 leukocytes 0 % 0-10 Blood neutrophils automated count (number/volume) 7.2 10*3 1.8-7.8 Blood lymphocytes automated count (number/volume) 1.5 10*3 1.0-4.0 Blood monocytes automated count (number/volume) 0.9 10*3 0.0-1.0 Automated eosinophil count 0.3 10*3/uL 0.0-0.3 Automated blood basophil count (count/volume) 0.0 10*3/uL 0.0-0.1 PT panel in platelet poor plasma by coagulation assay - 07/15/16 01:19 Prothrombin time (PT) in platelet poor plasma by coagulation assay 13.1 s 12.2-14.7 INR in platelet poor plasma or blood by coagulation assay 1.0 0.8-1.4 Activated partial thromboplastin time (aPTT) in platelet poor plasma bycoagulation assay - 07/15/16 01:19 Activated partial thromboplastin time (aPTT) in platelet poor plasma bycoagulation assay 32 s 24-35 Comprehensive metabolic panel - 07/15/16 01:19 Serum or plasma sodium measurement (moles/volume) 133 mmol/ L 135-145 Serum or plasma potassium measurement (moles/volume) 3.6 mmol/L 3.6-5.0 Serum or plasma chloride measurement (moles/volume) 100 mmol /L 98-107 Carbon dioxide 18 mmol/L 21-32 Serum or plasma anion gap determination (moles/volume) 15 mmol/L 5-14 Serum or plasma urea nitrogen measurement (mass/volume) 9 mg /dL 7-18 Serum or plasma creatinine measurement (mass/volume) 0.99 mg /dL 0.60-1.30 Serum or plasma urea nitrogen/creatinine mass ratio 9 NRG Serum or plasma creatinine measurement with calculation of estimated glomerular filtration rate > NRG Serum or plasma glucose measurement (mass/volume) 205 mg/dL 70-105 Serum or plasma calcium measurement (mass/volume) 8.8 mg/dL 8.5-10.1 Serum or plasma total bilirubin measurement (mass/volume) 0.5 mg/dL 0.1-1.0 Serum or plasma alkaline phosphatase measurement (enzymatic activity/volume) 102 U/L 40-136 Serum or plasma aspartate aminotransferase measurement (enzymatic activity/ volume) 48 U/L 5-34 Serum or plasma alanine aminotransferase measurement (enzymatic activity/volume ) 46 U/L 0-55 Serum or plasma protein measurement (mass/volume) 6.6 g/dL 6.4-8.2 Serum or plasma albumin measurement (mass/volume) 3.9 g/dL 3.2-4.5 Magnesium - 07/15/16 01:19 Magnesium 2.1 mg/dL 1.8-2.4 Serum or plasma troponin i.cardiac measurement (mass/volume) - 07/15/16 01:19 Serum or plasma troponin i.cardiac measurement (mass/volume) < ng/mL <0.30 Myoglobin, serum - 07/15/16 01:19 Myoglobin, serum 60.7 ng/mL 10.0-92.0 Whole blood basic metabolic panel - 07/15/16 03:58 Serum or plasma sodium measurement (moles/volume) 133 mmol/ L 135-145 Serum or plasma potassium measurement (moles/volume) 4.3 mmol/L 3.6-5.0 Serum or plasma chloride measurement (moles/volume) 103 mmol /L 98-107 Carbon dioxide 20 mmol/L 21-32 Serum or plasma anion gap determination (moles/volume) 10 mmol/L 5-14 Serum or plasma urea nitrogen measurement (mass/volume) 8 mg /dL 7-18 Serum or plasma creatinine measurement (mass/volume) 0.86 mg /dL 0.60-1.30 Serum or plasma urea nitrogen/creatinine mass ratio 9 NRG Serum or plasma creatinine measurement with calculation of estimated glomerular filtration rate > NRG Serum or plasma glucose measurement (mass/volume) 114 mg/dL 70-105 Serum or plasma calcium measurement (mass/volume) 9.2 mg/dL 8.5-10.1 Serum or plasma phosphate measurement (mass/volume) - 07/15/16 03:58 Serum or plasma phosphate measurement (mass/volume) 2.7 mg/ dL 2.3-4.7 Magnesium - 07/15/16 03:58 Magnesium 2.4 mg/dL 1.8-2.4 Lipid 1996 panel - 07/15/16 03:58 Serum or plasma triglyceride measurement (mass/volume) 162 mg/dL <150 Serum or plasma cholesterol measurement (mass/volume) 120 mg /dL < 200 Serum or plasma cholesterol in HDL measurement (mass/volume) 26 mg/dL 40-60 Cholesterol in LDL [mass/volume] in serum or plasma by direct assay 67 mg/dL 1-129 Serum or plasma cholesterol in VLDL measurement (mass/volume) 32 mg/dL 5-40 Serum or plasma creatine kinase measurement (enzymatic activity/volume) - 07/15 07:15 Serum or plasma creatine kinase measurement (enzymatic activity/volume) 91 U/L 30-200 Serum or plasma troponin i.cardiac measurement (mass/volume) - 07/15/16 07:15 Serum or plasma troponin i.cardiac measurement (mass/volume) < ng/mL <0.30 Methicillin resistant Staphylococcus aureus (MRSA) screening culture - 07:10 Methicillin resistant Staphylococcus aureus (MRSA) screening culture NEG NRG Encounters ACCT No. Visit Date/Time Discharge Status Pt. Type Provider Facility Loc./Unit Complaint [id number] 09/06/2016 06:43:00 2016 10:40:00 DIS Outpatient LUKE MACK DO [facility] SDC LESION RIGHT SIKHISM [id number] 09/02/2016 05:33:00 2016 10:13:00 DIS Outpatient LUKE MACK DO [facility] PREOP REMOVAL SKIN LESION RIGHT SIKHISM [id number] 08/17/2016 07:32:00 2016 10:30:00 DIS Outpatient LUKE MACK DO [facility] ENDO CHEST PAIN [id number] 08/13/2016 09:00:00 2016 09:30:00 DIS Outpatient LUKE MACK DO [facility] PREOP CHEST PAIN [id number] 08/02/2016 06:00:00 2016 13:33:00 DIS Outpatient LUKE MACK DO [facility] PREOP CHEST PAIN [id number] 07/15/2016 02:53:00 2016 14:30:00 DIS Inpatient AYDE FRANCO DO [facility] ICU CHEST PAIN,CAD [id number] 07/05/2016 18:56:00 2016 21:17:00 DIS Emergency IRASEMA BARTON [employer] [facility] ER CP [id number] 10/08/2015 06:57:00 2015 10:30:00 DIS Outpatient ADRYAN NAVARRO MD [facility] CATH ABNORMAL STRESS, CAD, HLP [id number] 08/21/2013 12:55:00 2013 23:59:59 CLS Outpatient ADRYAN NAVARRO MD [facility] CARD CAD,HTN,HLP [id number] 08/17/2013 06:18:00 2013 11:12:00 DIS Inpatient JULIO CÉSAR HOWELL MD [facility] SURG RIGHT CAROTID STENOSIS [id number] 08/15/2013 08:04:00 2013 23:59:59 CLS Outpatient JULIO CÉSAR HOWELL MD [facility] PREOP RIGHT CAROTID STENOSIS [id number] 08/07/2013 06:26:00 2013 23:59:59 CLS Outpatient ADRYAN NAVARRO MD [facility] RAD CAD,HTN,HLP [id number] 09/17/2015 07:05:00 ACT Outpatient ADRYAN NAVARRO MD [facility] CARD CAD,FLORES,HTN MIXED HLP [id number] 06/19/2011 15:02:00 Document Registration [id number] 12/25/2010 08:34:00 Document Registration
== END 2016-09-06 10:40 | disposition home or self-care (01) ==
LOC: DELPENDDIS → SDC 06:43
PROVIDERS: ATTEND Surgery
DX: L85.8 Other specified epidermal thickening (principal)
CPT/HCPCS: 87081; 88305

== ENCOUNTER 2017-07-03 22:17 | Emergency (ER) | payer MEDICARE, OTHER ==
[~2017-07-03] VITALS: Ht 177.8 cm; Wt 108.0 kg
[~2017-07-03 22:17] MED LIST changes: +ACHD5005 PO
--- NOTE | 2017-07-03 23:18 | ED Cough/URI ---
General Chief Complaint: Cough/Cold/Flu Symptoms Stated Complaint: COUGH, "TAKES BREATHE AWAY" Nursing Triage Note: cough x2 days Source: patient Exam Limitations: no limitations History of Present Illness Date Seen by Provider: Jul 03, 2017 Time Seen by Provider: 23:17 Initial Comments To ER with general malaise, cough 2 days, fever up to 101. Was seen at [facility] yesterday and given a prescription for Tessalon Perles and codeine cough medication which has helped that he continues to feel poorly overall been febrile. He had a negative influenza test yesterday he states. He is a former smoker having quit about 10-11 years ago. 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 Timing/Duration: constant Severity/Quality: moderate Associated Symptoms: cough, fever/chills Allergies and Home Medications Allergies Coded Allergies: No Known Drug Allergies (Unverified , 08/13/16) Home Medications Aspirin 81 Mg Tablet.dr, 81 MG PO DAILY, (Reported) Atorvastatin Calcium 80 Mg Tablet, 40 MG PO HS, (Reported) PATIENT TAKES 1/2 TABLET OF 80 MG DAILY Carvedilol 3.125 Mg Tablet, 3.125 MG PO BID, (Reported) Clopidogrel Bisulfate 75 Mg Tablet, 75 MG PO DAILY, (Reported) Diphenhydramine HCl 25 Mg Tablet, 25-50 MG PO DAILY PRN for ALLERGIES, (Reported ) TAKES 1-2 OF A (25 MG) TABLET Enalapril Maleate 10 Mg Tablet, 5 MG PO DAILY, (Reported) TAKES 1/2 OF A (10 MG) TABLET Famotidine 20 Mg Tablet, 20 MG PO PRN PRN for INDIGESTION, (Reported) Hydrocodone Bit/Acetaminophen 1 Each Tablet, 1 TAB PO Q6H PRN, #20 Ref 0 Prescribed by: LUKE MACK on 09/06/16 0903 Pseudoephedrine/Triprolidine 1 Each Tablet, 1 TAB PO TID PRN for ALLERGIES, ( Reported) TYPICALLY ONLY TAKES ONCE DAILY NEEDED Constitutional: see HPI, chills, fever EENTM: see HPI Respiratory: see HPI, cough Cardiovascular: no symptoms reported Genitourinary: no symptoms reported Musculoskeletal: no symptoms reported Skin: no symptoms reported Psychiatric/Neurological: No Symptoms Reported Past Vfyyyjn-Fimxln-Jcnoic Hx Patient Social History Alcohol Use: Denies Use Recreational Drug Use: No Type Used: Cigarettes Former Smoker, Quit: Jun 13, 2007 Recent Foreign Travel: No Contact w/Someone Who Travel: No Recent Infectious Disease Expo: No Recent Hopitalizations: No Immunizations Up To Date Tetanus Booster (TDap): More than 5yrs Date of Pneumonia Vaccine: Mar 13, 2014 Date of Influenza Vaccine: Apr 14, 2013 Seasonal Allergies Seasonal Allergies: Yes Surgeries History of Surgeries: Yes (cysts removed thumb/scapula, CAROTID ARTERY) Surgeries: Appendectomy, Coronary Stent Respiratory History of Respiratory Disorde: Yes (USES BIPAP, GETS SOB WITH EXERCISE) Respiratory Disorders: Sleep Apnea Currently Using CPAP: No Currently Using BIPAP: Yes Cardiovascular History of Cardiac Disorders: Yes (STENTS X2 PLACED 5 YRS AGO) Cardiac Disorders: Coronary Artery Disease, Heart Attack, High Cholesterol Neurological History of Neurological Disord: No Reproductive System Hx Reproductive Disorders: No Sexually Transmitted Disease: No HIV/AIDS: No Gastrointestinal History of Gastrointestinal Di: Yes Gastrointestinal Disorders: Gastroesophageal Reflux Musculoskeletal History of Musculoskeletal Dis: Yes (Closed reductions) Musculoskeletal Disorders: Fractures Endocrine History of Endocrine Disorders: No HEENT History of HEENT Disorders: Yes (glasses - near sighted ) Loss of Vision: Bilateral Hearing Impairment: Denies Cancer History of Cancer: No Psychosocial History of Psychiatric Problem: No Integumentary History of Skin or Integumenta: No (LESION ON RIGHT SYNAGOGUE) Blood Transfusions History of Blood Disorders: No (takes plavix ) Adverse Reaction to a Blood Tr: No (N/A) Family Medical History Family Medial History: Abdominal aortic aneurysm 03 FATHER (DOESN'T KNOW MUCH ABOUT FAMILY HX) No Family History of: Cancer of colon Physical Exam Vital Signs Vital Sign - Last 12Hours 07/03/17 23:13 Temp 100.7 Pulse 77 Resp 18 B/P (MAP) 138/77 (97) Pulse Ox 93 O2 Delivery Room Air Capillary Refill : Less Than 3 Seconds General Appearance: WD/WN, no apparent distress, obese Eyes: Bilateral Eye Normal Inspection, Bilateral Eye PERRL, Bilateral Eye EOMI HEENT: PERRL/EOMI, normal ENT inspection Neck: non-tender, full range of motion Respiratory: normal breath sounds, no respiratory distress, no accessory muscle use Gastrointestinal: normal bowel sounds, non tender, soft Neurologic/Psychiatric: no motor/sensory deficits, alert, normal mood/affect, oriented x 3 Skin: normal color, warm/dry Progress/Results/Core Measures Suspected Sepsis Recent Fever Within 48 Hours: Yes Infection Criteria Present: Documented Infection New/Unexplained Altered Menta: No Sepsis Screen: No Definite Risk Sepsis Diagnosis: SIRS Temperature:100.7 Pulse: 77 Respiratory Rate: 18 Blood Pressure 138 /77 Mean: 97 Results/Orders My Orders Orders - IRASEMA BARTON APRN Chest Pa/Lat (2 View) (07/03/17 22:43) Cbc With Automated Diff (07/03/17 23:09) Basic Metabolic Panel (07/03/17 23:09) BNP (07/03/17 23:09) Ceftriaxone Injection (Rocephin Injectio (07/03/17 23:30) Azithromycin Tablet (Zithromax Tablet) (07/03/17 23:30) Influenza A And B Antigens (07/03/17 23:16) Vital Signs/I&O Vital Sign - Last 12Hours 07/03/17 23:13 Temp 100.7 Pulse 77 Resp 18 B/P (MAP) 138/77 (97) Pulse Ox 93 O2 Delivery Room Air Capillary Refill : Less Than 3 Seconds Blood Pressure Mean: 97 Departure Communication (Admissions) Progress Notes Chest x-ray shows right lower lobe infiltrate. Temperature 100.7 here. No respiratory distress. Oxygen saturation 93% on room air. I will give one dose of Rocephin 1 g IV here plus Zithromax 500 mg IV here and discharge to home with a prescription for Omnicef plus Zithromax. Impression Impression: Primary Impression: Right lower lobe pneumonia Disposition: HOME, SELF-CARE Condition: Stable Departure-Patient Inst. Decision time for Depature: 23:20 Referrals: NO,LOCAL PHYSICIAN (PCP) Primary Care Physician CHRISTIAN GONZALEZ (Family) Primary Care Physician Patient Instructions: Pneumonia, Adult (DC) Add. Discharge Instructions: 1. Return to ER for any concerns such as worsening symptoms, shortness of breath , chest pain, 2. Follow-up with your doctor next week 3. Tylenol and Motrin for fever control 4. Antibiotics as directed starting tomorrow. All discharge instructions reviewed with patient and/or family. Voiced understanding. Scripts Cefdinir (Cefdinir) 300 Mg Capsule 300 MG PO BID, #14 CAP Prov: IRASEMA BARTON APRN 07/03/17 Azithromycin (Azithromycin) 250 Mg Tablet 250 MG PO DAILY, #4 TAB Prov: IRASEMA BARTON APRN 07/03/17 IRASEMA BARTON APRN Jul 03, 2017 23:18
[2017-07-03] MEDS ORDERED: CEFD300C3 PO (23:21)
[2017-07-03] MEDS ORDERED: AZIT250T12 PO (23:21)
[2017-07-03 23:27] LABS: BASOPHILS % (AUTO) 0 % (0-10); EOSINOPHILS % (AUTO) 0 % (0-10); HEMATOCRIT 42 % (40-54); HEMOGLOBIN 14.9 G/DL (13.3-17.7); LYMPHOCYTES # (AUTO) 1.3 X 10^3 (1.0-4.0); LYMPHOCYTES % (AUTO) 16 % (12-44); MEAN CORPUSCULAR HEMOGLOBIN 32 PG (25-34); MEAN CORPUSCULAR HGB CONC 35 G/DL (32-36); MEAN CORPUSCULAR VOLUME 92 FL (80-99); MEAN PLATELET VOLUME 9.1 FL (7.4-10.4); MONOCYTES # (AUTO) 1.5 X 10^3 (0.0-1.0); MONOCYTES % (AUTO) 19 % (0-12); NEUTROPHILS # (AUTO) 5.2 X 10^3 (1.8-7.8); NEUTROPHILS % (AUTO) 65 % (42-75); PLATELET COUNT 276 10^3/uL (130-400); RED BLOOD COUNT 4.63 10^6/uL (4.35-5.85); RED CELL DISTRIBUTION WIDTH 13.5 % (10.0-14.5); WHITE BLOOD COUNT 7.9 10^3/uL (4.3-11.0)
[2017-07-03] MEDS ORDERED: RT-ALBUTEROL/IPRATROPIUM 3 ML (DUONEB) VIAL INH ONE (23:30)
[2017-07-03] MEDS ORDERED: AZITHROMYCIN 250 MG TAB (ZITHROMAX) PO SCH (23:30)
[2017-07-03] MEDS ORDERED: cefTRIAXone INJECTION 1,000 MG in D5W 50 ML IVPB SOLUTION 50 ML IV ONE (23:30)
[2017-07-03 23:42] LABS: BAND NEUTROPHILS 1 %; BASOPHILS % (MANUAL) 0 %; EOSINOPHILS % (MANUAL) 0 %; LYMPHOCYTES % (MANUAL) 11 %; MONOCYTES % (MANUAL) 20 %; NEUTROPHILS % (MANUAL) 64 %; REACTIVE LYMPHOCYTES 4 %
[2017-07-03 23:43] LABS: RBC MORPH NORMAL
[2017-07-04 00:04] LABS: BUN/CREATININE RATIO 12; CALCIUM 9.4 MG/DL (8.5-10.1); CARBON DIOXIDE 20 MMOL/L (21-32); CHLORIDE 100 MMOL/L (98-107); CREATININE SERUM 0.92 MG/DL (0.60-1.30); GFR ESTIMATED > 60; GLUCOSE 117 MG/DL (70-105); POTASSIUM 3.7 MMOL/L (3.6-5.0); SODIUM 132 MMOL/L (135-145)
[2017-07-04 00:23] VITALS: BP 157/81
--- NOTE | 2017-07-04 08:14 | Diagnostic Imaging Report ---
INDICATION: Coughing and chest burning. Time of exam: 11:27 PM Correlation is made with prior study from 07/15/2016. The heart is enlarged but stable. Lungs appear to be fairly clear. There is mild basilar interstitial changes. No parenchymal consolidation is seen. No effusion or pneumothorax is detected. IMPRESSION: No acute cardiopulmonary process is detected. Dictated by: Dictated on workstation # [id number]
== END 2017-07-04 00:19 | disposition home or self-care (01) ==
LOC: EDUNIT# 22:17 → ER 22:19
DX: J18.1 Lobar pneumonia, unspecified organism (principal); I25.10 Atherosclerotic heart disease of native coronary artery without angina pectoris; I25.2 Old myocardial infarction; E78.00 Pure hypercholesterolemia, unspecified; K21.9 Gastro-esophageal reflux disease without esophagitis; Z79.02 Long term (current) use of antithrombotics/antiplatelets; Z87.891 Personal history of nicotine dependence; Z79.82 Long term (current) use of aspirin; Z90.49 Acquired absence of other specified parts of digestive tract; Z95.5 Presence of coronary angioplasty implant and graft
CPT/HCPCS: 36415; 71046; 80048; 83880; 85007; 85025; 85027; 87804; 94640; 96374; 99283

== ENCOUNTER → 2017-07-13 | Outpatient (CLI) | payer MEDICARE, OTHER ==
[~2017-07-13] MED LIST changes: +AZIT250T12 PO; +CEFD300C3 PO
--- NOTE | 2017-07-13 15:20 | Diagnostic Imaging Report ---
INDICATION: Followup pneumonia. TIME OF EXAM: 3:23 PM Comparison is made with prior study from 07/03/2017. FINDINGS: The heart is enlarged but stable. There is some hyperinflation to both lungs consistent with COPD. Lungs appear to be fairly clear. No infiltrates are seen. There is no effusion or pneumothorax. IMPRESSION: Stable chest. No acute feature is detected. Dictated by: Dictated on workstation # [id number]
== END ==
LOC: RAD 14:51
PROVIDERS: ATTEND Registered Nurse
DX: R06.00 Dyspnea, unspecified (principal); Z87.01 Personal history of pneumonia (recurrent)
CPT/HCPCS: 71046

== ENCOUNTER 2017-07-25 07:11 | Inpatient (IN) | payer MEDICARE, OTHER ==
[~2017-07-25] VITALS: Ht 177.8 cm; Wt 107.5 kg
[2017-07-25] MEDS ORDERED: LACTATED RINGERS 1,000 ML IV ONE ×2 (07:19→10:05)
[2017-07-25] MEDS ORDERED: RT-ALBUTEROL SULF 2.5 MG/3 ML PRE-MIX VIAL INH STA ×2 (07:19→10:08)
[2017-07-25] MEDS ORDERED: ONDANSETRON 4 MG/2 ML (SDV) Z0FRAN IVP PRN (07:30)
[2017-07-25] MEDS ORDERED: CEFEPIME INJECTION 2,000 MG in NS (IVPB) 50 ML IV ONE (07:30)
[2017-07-25 08:12] LABS: BASOPHILS % (AUTO) 0 % (0-10); EOSINOPHILS # (AUTO) 0.5 10^3/uL (0.0-0.3); EOSINOPHILS % (AUTO) 3 % (0-10); HEMATOCRIT 43 % (40-54); HEMOGLOBIN 15.2 G/DL (13.3-17.7); LYMPHOCYTES # (AUTO) 2.3 X 10^3 (1.0-4.0); LYMPHOCYTES % (AUTO) 15 % (12-44); MEAN CORPUSCULAR HEMOGLOBIN 32 PG (25-34); MEAN CORPUSCULAR HGB CONC 35 G/DL (32-36); MEAN CORPUSCULAR VOLUME 92 FL (80-99); MEAN PLATELET VOLUME 8.9 FL (7.4-10.4); MONOCYTES # (AUTO) 1.1 X 10^3 (0.0-1.0); MONOCYTES % (AUTO) 7 % (0-12); NEUTROPHILS # (AUTO) 11.3 X 10^3 (1.8-7.8); NEUTROPHILS % (AUTO) 75 % (42-75); PLATELET COUNT 367 10^3/uL (130-400); RED BLOOD COUNT 4.74 10^6/uL (4.35-5.85); RED CELL DISTRIBUTION WIDTH 13.3 % (10.0-14.5); WHITE BLOOD COUNT 15.2 10^3/uL (4.3-11.0)
--- NOTE | 2017-07-25 08:29 | ED Respiratory ---
General Chief Complaint: Respiratory Problems Stated Complaint: SOA Nursing Triage Note: c/o progressive soa. Symptoms worsened over the weekend. Pt was diagnosed over on 07-03-17 with pneumonia. Source: patient, EMS, spouse Exam Limitations: no limitations History of Present Illness Date Seen by Provider: Jul 25, 2017 Time Seen by Provider: 07:05 Initial Comments Patient presents to ER by EMS with a chief complaint of the last 2-3 weeks feeling very short of breath and coughing a lot. He was seen in the ER at that time and was given a chest x-ray told he had pneumonia given 2 prescriptions that he thinks was Augmentin and azithromycin. He did not really get better so he went back to his doctor told him he did not have pneumonia. He has not been on steroids. He denies a history of COPD although he did quit smoking in 2008 after his heart attack. He is not having any chest pain just shortness of air, wheezing and coughing. He received one of his doses of albuterol this morning that was given to him most recently and EMS gave him 2 doses of new DuoNeb which he says greatly improved his breathing. He is not having any fevers or chills or productive cough right now. He denies nausea vomiting or diarrhea. He does have some nausea when he gets into a coughing fit though. Allergies and Home Medications Allergies Coded Allergies: No Known Drug Allergies (Unverified , 08/13/16) Home Medications Aspirin 81 Mg Tablet.dr, 81 MG PO DAILY, (Reported) Atorvastatin Calcium 80 Mg Tablet, 40 MG PO HS, (Reported) PATIENT TAKES 1/2 TABLET OF 80 MG DAILY Azithromycin 250 Mg Tablet, 250 MG PO DAILY, #4 Prescribed by: IRASEMA BARTON on 07/03/17 2321 Carvedilol 3.125 Mg Tablet, 3.125 MG PO BID, (Reported) Cefdinir 300 Mg Capsule, 300 MG PO BID, #14 Prescribed by: IRASEMA BARTON on 07/03/17 2321 Clopidogrel Bisulfate 75 Mg Tablet, 75 MG PO DAILY, (Reported) Diphenhydramine HCl 25 Mg Tablet, 25-50 MG PO DAILY PRN for ALLERGIES, (Reported ) TAKES 1-2 OF A (25 MG) TABLET Enalapril Maleate 10 Mg Tablet, 5 MG PO DAILY, (Reported) TAKES 1/2 OF A (10 MG) TABLET Famotidine 20 Mg Tablet, 20 MG PO PRN PRN for INDIGESTION, (Reported) Hydrocodone Bit/Acetaminophen 1 Each Tablet, 1 TAB PO Q6H PRN, #20 Ref 0 Prescribed by: LUKE MACK on 09/06/16 0903 Pseudoephedrine/Triprolidine 1 Each Tablet, 1 TAB PO TID PRN for ALLERGIES, ( Reported) TYPICALLY ONLY TAKES ONCE DAILY NEEDED Constitutional: No chills, No diaphoresis, malaise EENTM: No ear discharge, No ear pain Respiratory: cough, No phlegm, short of breath, No stridor, wheezing Cardiovascular: No chest pain, Hx of Intervention, No syncope, vascular heart diseas Gastrointestinal: No abdominal pain, No constipation, No diarrhea, nausea ( occasional with coughing), No vomiting Genitourinary: No discharge, No dysuria Skin: No pruritus, No rash Past Cgvkmpz-Wtnrtp-Drhngp Hx Patient Social History Alcohol Use: Denies Use Recreational Drug Use: No Smoking Status: Former Smoker Type Used: Cigarettes Former Smoker, Quit: Jun 13, 2007 Recent Foreign Travel: No Contact w/Someone Who Travel: No Recent Infectious Disease Expo: No Recent Hopitalizations: No Immunizations Up To Date Tetanus Booster (TDap): More than 5yrs Date of Pneumonia Vaccine: Mar 13, 2014 Date of Influenza Vaccine: Apr 14, 2013 Seasonal Allergies Seasonal Allergies: Yes Surgeries History of Surgeries: Yes (cysts removed thumb/scapula, CAROTID ARTERY) Surgeries: Appendectomy, Coronary Stent Respiratory History of Respiratory Disorde: Yes (USES BIPAP, GETS SOB WITH EXERCISE) Respiratory Disorders: Sleep Apnea Currently Using CPAP: No Currently Using BIPAP: Yes Cardiovascular History of Cardiac Disorders: Yes (STENTS X2 PLACED 5 YRS AGO) Cardiac Disorders: Coronary Artery Disease, Heart Attack, High Cholesterol Neurological History of Neurological Disord: No Reproductive System Hx Reproductive Disorders: No Sexually Transmitted Disease: No HIV/AIDS: No Gastrointestinal History of Gastrointestinal Di: Yes Gastrointestinal Disorders: Gastroesophageal Reflux Musculoskeletal History of Musculoskeletal Dis: Yes (Closed reductions) Musculoskeletal Disorders: Fractures Endocrine History of Endocrine Disorders: No HEENT History of HEENT Disorders: Yes (glasses - near sighted ) Loss of Vision: Bilateral Hearing Impairment: Denies Cancer History of Cancer: No Psychosocial History of Psychiatric Problem: No Integumentary History of Skin or Integumenta: No (LESION ON RIGHT WORSHIP) Blood Transfusions History of Blood Disorders: No (takes plavix ) Adverse Reaction to a Blood Tr: No (N/A) Family Medical History Family Medial History: Abdominal aortic aneurysm 03 FATHER (DOESN'T KNOW MUCH ABOUT FAMILY HX) No Family History of: Cancer of colon Physical Exam Vital Signs Vital Signs - First Documented 07/25/17 07/25/17 07/25/17 07:25 07:35 10:14 Temp 98.3 Pulse 107 Resp 24 B/P (MAP) 171/99 (123) Pulse Ox 93 O2 Delivery Room Air O2 Flow Rate 1.00 Capillary Refill : Less Than 3 Seconds General Appearance: WD/WN, moderate distress Eyes: Bilateral Eye Normal Inspection, Bilateral Eye PERRL, Bilateral Eye EOMI HEENT: PERRL/EOMI, normal ENT inspection, TMs normal, pharynx normal Neck: non-tender, full range of motion, supple, normal inspection Respiratory: chest non-tender Focused Exam Evaluation Lactate Level Laboratory Tests 07/25/17 07:35: Lactic Acid Level 1.95 Lactic Acid Level Laboratory Tests Test 07/25/17 07:35 Lactic Acid Level 1.95 MMOL/L (0.50-2.00) Progress/Results/Core Measures Suspected Sepsis Recent Fever Within 48 Hours: Yes Infection Criteria Present: Suspected New Infection New/Unexplained Altered Menta: No Sepsis Screen: Possible Sepsis Risk Sepsis Diagnosis: SIRS Temperature:98.3 Pulse: 107 Respiratory Rate: 24 Laboratory Tests 07/25/17 08:02: White Blood Count 15.2H Blood Pressure 171 /99 Mean: 123 Laboratory Tests 07/25/17 07:35: Lactic Acid Level 1.95 Laboratory Tests 07/25/17 08:02: Creatinine 0.90, INR Comment 1.1, Platelet Count 367, Total Bilirubin 0.6 Results/Orders Lab Results Laboratory Tests Test 07/25/17 07:35 07/25/17 08:02 Range/Units Lactic Acid Level 1.95 0.50-2.00 MMOL/L White Blood Count 15.2 H 4.3-11.0 10^3/uL Red Blood Count 4.74 4.35-5.85 10^6/uL Hemoglobin 15.2 13.3-17.7 G/DL Hematocrit 43 40-54 % Mean Corpuscular Volume 92 80-99 FL Mean Corpuscular Hemoglobin 32 25-34 PG Mean Corpuscular Hemoglobin Concent 35 32-36 G/DL Red Cell Distribution Width 13.3 10.0-14.5 % Platelet Count 367 130-400 10^3/uL Mean Platelet Volume 8.9 7.4-10.4 FL Neutrophils (%) (Auto) 75 42-75 % Lymphocytes (%) (Auto) 15 12-44 % Monocytes (%) (Auto) 7 0-12 % Eosinophils (%) (Auto) 3 0-10 % Basophils (%) (Auto) 0 0-10 % Neutrophils # (Auto) 11.3 H 1.8-7.8 X 10^3 Lymphocytes # (Auto) 2.3 1.0-4.0 X 10^3 Monocytes # (Auto) 1.1 H 0.0-1.0 X 10^3 Eosinophils # (Auto) 0.5 H 0.0-0.3 10^3/uL Basophils # (Auto) 0.0 0.0-0.1 10^3/uL Neutrophils % (Manual) 70 % Lymphocytes % (Manual) 17 % Monocytes % (Manual) 2 % Eosinophils % (Manual) 6 % Basophils % (Manual) 1 % Reactive Lymphocytes 4 % Blood Morphology Comment NORMAL Prothrombin Time 14.6 12.2-14.7 SEC INR Comment 1.1 0.8-1.4 Activated Partial Thromboplast Time 33 24-35 SEC Sodium Level 133 L 135-145 MMOL/L Potassium Level 4.3 3.6-5.0 MMOL/L Chloride Level 102 98-107 MMOL/L Carbon Dioxide Level 20 L 21-32 MMOL/L Anion Gap 11 5-14 MMOL/L Blood Urea Nitrogen 11 7-18 MG/DL Creatinine 0.90 0.60-1.30 MG/DL Estimat Glomerular Filtration Rate > 60 BUN/Creatinine Ratio 12 Glucose Level 127 H 70-105 MG/DL Calcium Level 9.6 8.5-10.1 MG/DL Magnesium Level 1.9 1.8-2.4 MG/DL Total Bilirubin 0.6 0.1-1.0 MG/DL Aspartate Amino Transf (AST/SGOT) 29 5-34 U/L Alanine Aminotransferase (ALT/SGPT) 38 0-55 U/L Alkaline Phosphatase 109 40-136 U/L Troponin I < 0.30 <0.30 NG/ML C-Reactive Protein High Sensitivity 0.50 0.00-0.50 MG/DL B-Type Natriuretic Peptide < 10.0 <100.0 PG/ML Total Protein 7.3 6.4-8.2 GM/DL Albumin 4.1 3.2-4.5 GM/DL Micro Results Microbiology 07/25/17 Influenza Types A,B Antigen (KAROLYN) - Final, Complete My Orders Orders - SAVANNA MOULTON Cbc With Automated Diff (07/25/17 07:19) Comprehensive Metabolic Panel (07/25/17:) Lactic Acid Analyzer (07/25/17 07:19) Blood Culture (07/25/17:19) Sputum Culture (07/25/17:) Ua Culture If Indicated (07/25/17:) Protime With Inr (07/25/17:) Partial Thromboplastin Time (07/25/17:) O2 (07/25/17 07:) Ondansetron Injection (Zofran Injectio (07/25/17 07:30) Saline Lock/Iv-Start (07/25/17 07:19) Saline Lock/Iv-Start (07/25/17 07:19) Ekg Tracing (07/25/17:) Troponin I (07/25/17 07:19) Cefepime Injection (Maxipime Injection) (07/25/17 07:30) Vital Signs Adult Sepsis Patie Q1H (07/25/17 07:19) Remove Rings In Anticipation O (07/25/17 07:19) Influenza A And B Antigens (07/25/17 07:19) Lactated Ringers (Lr 1000 Ml Iv Solution (07/25/17 07:19) Albuterol Pre-Mix Nebs (Rt) (Proventil (07/25/17 07:19) Chest Pa/Lat (2 View) (07/25/17 07:19) BNP (07/25/17:19) Hs C Reactive Protein (07/25/17 07:19) Magnesium (07/25/17 07:19) Manual Differential (07/25/17 08:02) Albuterol Pre-Mix Nebs (Rt) (Proventil (07/25/17 10:08) Lactated Ringers (Lr 1000 Ml Iv Solution (07/25/17 10:05) Azithromycin Injection (Zithromax Inject (07/25/17 10:45) Methylprednisolone Sod Succ (Solu-Medrol (07/25/17 10:45) Medications Given in ED Current Medications Medications Dose Ordered Sig/Ana Cristina Route Start Time Stop Time Status Last Admin Dose Admin Cefepime HCl 2000 mg/Sodium Chloride 50 ml @ 100 mls/hr ONCE ONCE IV 07/25/17 07:30 07/25/17 07:59 DC 07/25/17 10:00 100 MLS/HR Lactated Ringer's 1,000 ml @ ud STK-MED ONCE IV 07/25/17 10:05 07/25/17 10:09 DC 07/25/17 10:09 1,000 MLS/HR Ondansetron HCl 4 mg ONCE PRN IVP 07/25/17 07:30 07/25/17 10:06 DC 07/25/17 10:00 4 MG Vital Signs/I&O Vital Sign - Last 12Hours 07/25/17 07/25/17 07/25/17 07:25 07:35 10:14 Temp 98.3 Pulse 107 Resp 24 B/P (MAP) 171/99 (123) Pulse Ox 93 93 86 O2 Delivery Room Air O2 Flow Rate 1.00 2.00 Capillary Refill : Less Than 3 Seconds Blood Pressure Mean: 123 ECG Initial ECG Impression Date: Jul 25, 2017 Initial ECG Impression Time: 10:40 Initial ECG Rate: 122 Initial ECG Rhythm: S.Tach Initial ECG Intervals: Normal Initial ECG Impression: Normal Initial ECG Comparisson: No Previous ECG Available Comment No T-wave elevation or depression. Diagnostic Imaging Diagonstic Imaging: Xray Plain Films/CT/US/NM/MRI: chest Comments VIA [facility]. [place], [place] NAME: CECILIA BARTON [facility] REC#: [id number] PT STATUS: REG ER : 1945 PHYSICIAN: SAVANNA MOULTON MD ADMIT DATE: 07/25/17/ER Draft Date of Exam:07/25/17 CHEST PA/LAT (2 VIEW) Indication: Shortness of breath and chest congestion. PA and lateral chest obtained at 9:37 hours a.m. and compared with 07/13/2017. Findings: There is cardiomegaly. Mediastinal silhouette is unremarkable. There are chronic-appearing increased residual markings. There is no overt consolidation or pneumothorax or pleural fluid. Impression: Cardiomegaly and chronic-appearing increased residual markings. No acute consolidation or pleural fluid. Dictated on workstation # [id number] Dict: 07/25/17930 Trans: 07/25/1739 CV [id number] Interpreted by: JULIO CÉSAR WOODS MD Electronically signed by: Reviewed: Reviewed by Me Departure Communication (Admissions) Time/Spoke to Admitting Phy: 10:[address] Corcoran discussed case lab imaging findings and EKG and he is okay to take the patient with azithromycin and steroids. Impression Impression: Primary Impression: COPD with acute exacerbation Disposition: ADMITTED INPATIENT Condition: Improved Admissions Decision to Admit Reason: Admit from ER (General) Decision to Admit/Date: Jul 25, 2017 Time/Decision to Admit Time: 10:30 Departure-Patient Inst. Referrals: TELLO KRUGER MD (PCP) Primary Care Physician CHRISTIAN GONZALEZ (Family) Primary Care Physician Copy Copies To 1: TELLO KRUGER MD, TITUS J Jul 25, 2017 08:29
[2017-07-25 08:30] LABS: ALANINE AMINOTRANSFERASE 38 U/L (0-55); ALBUMIN 4.1 GM/DL (3.2-4.5); ALKALINE PHOSPHATASE 109 U/L (40-136); BILIRUBIN,TOTAL 0.6 MG/DL (0.1-1.0); BUN/CREATININE RATIO 12; CALCIUM 9.6 MG/DL (8.5-10.1); CARBON DIOXIDE 20 MMOL/L (21-32); CHLORIDE 102 MMOL/L (98-107); GFR ESTIMATED > 60; GLUCOSE 127 MG/DL (70-105); MAGNESIUM 1.9 MG/DL (1.8-2.4); POTASSIUM 4.3 MMOL/L (3.6-5.0); SODIUM 133 MMOL/L (135-145); TOTAL PROTEIN 7.3 GM/DL (6.4-8.2)
[2017-07-25 08:33] LABS: INR 1.1 (0.8-1.4); PROTHROMBIN TIME PATIENT 14.6 SEC (12.2-14.7)
[2017-07-25 08:35] LABS: BASOPHILS % (MANUAL) 1 %; EOSINOPHILS % (MANUAL) 6 %; LYMPHOCYTES % (MANUAL) 17 %; MONOCYTES % (MANUAL) 2 %; NEUTROPHILS % (MANUAL) 70 %; RBC MORPH NORMAL; REACTIVE LYMPHOCYTES 4 %
--- NOTE | 2017-07-25 09:39 | Diagnostic Imaging Report ---
Indication: Shortness of breath and chest congestion. PA and lateral chest obtained at 9:37 hours a.m. and compared with 07/13/2017. Findings: There is cardiomegaly. Mediastinal silhouette is unremarkable. There are chronic-appearing increased residual markings. There is no overt consolidation or pneumothorax or pleural fluid. Impression: Cardiomegaly and chronic-appearing increased residual markings. No acute consolidation or pleural fluid. Dictated by: Dictated on workstation # [id number]
[2017-07-25] MEDS ORDERED: methylPREDNISolone 125 MG (Solu-MEDROL) VIAL IVP ONE (10:45)
[2017-07-25] MEDS ORDERED: AZITHROMYCIN INJECTION 500 MG in NS (IVPB) 250 ML IV ONE (10:45)
[2017-07-25 11:50] VITALS: BP 156/85
[2017-07-25] MEDS ORDERED: AZITHROMYCIN INJECTION 500 MG in NS (IVPB) 250 ML IV NR (12:00)
[2017-07-25] MEDS ORDERED: CATHETER FLUSH 10 ML SYR IV PRN (12:15)
[2017-07-25] MEDS ORDERED: ONDANSETRON 4 MG/2 ML (SDV) Z0FRAN IV PRN (12:15)
[2017-07-25] MEDS ORDERED: ENAL5TAB PO (13:44)
[2017-07-25] MEDS ORDERED: ALBU18HF2 IH (13:44)
[2017-07-25] MEDS ORDERED: ATOR40TA70 PO (13:44)
[2017-07-25] MEDS ORDERED: CARV3.122 PO (13:44)
[2017-07-25] MEDS ORDERED: GUAI600T43 PO (13:54)
[2017-07-25 14:12] VITALS: BP 22/156
[2017-07-25] MEDS ORDERED: RT-ALBUTEROL/IPRATROPIUM 3 ML (DUONEB) VIAL INH PRN (14:15)
[2017-07-25 16:59] VITALS: BP 140/66
[2017-07-25] MEDS: methylPREDNISolone 40 MG/ML (Solu-MEDROL) VIAL IV SCH (17:46)
[2017-07-25 19:33] VITALS: BP 123/61
[2017-07-25] MEDS: RT-ALBUTEROL/IPRATROPIUM 3 ML (DUONEB) VIAL INH SCH ×2 (20:04→20:05)
[2017-07-26 00:14] VITALS: BP 133/58
[2017-07-26] MEDS: PROMETHAZINE/ CODEINE SYRUP 5 ML UDC PO PRN (00:33)
[2017-07-26] MEDS: methylPREDNISolone 40 MG/ML (Solu-MEDROL) VIAL IV SCH ×3 (01:47→18:24)
[2017-07-26] MEDS: RT-ALBUTEROL/IPRATROPIUM 3 ML (DUONEB) VIAL INH SCH ×4 (03:00→21:03)
[2017-07-26 04:00] VITALS: BP 100/51
[2017-07-26 06:31] LABS: BASOPHILS % (AUTO) 0 % (0-10); EOSINOPHILS % (AUTO) 0 % (0-10); HEMATOCRIT 41 % (40-54); HEMOGLOBIN 14.4 G/DL (13.3-17.7); LYMPHOCYTES # (AUTO) 0.9 X 10^3 (1.0-4.0); LYMPHOCYTES % (AUTO) 6 % (12-44); MEAN CORPUSCULAR HEMOGLOBIN 32 PG (25-34); MEAN CORPUSCULAR HGB CONC 35 G/DL (32-36); MEAN CORPUSCULAR VOLUME 92 FL (80-99); MEAN PLATELET VOLUME 8.9 FL (7.4-10.4); MONOCYTES # (AUTO) 0.5 X 10^3 (0.0-1.0); MONOCYTES % (AUTO) 3 % (0-12); NEUTROPHILS # (AUTO) 12.9 X 10^3 (1.8-7.8); NEUTROPHILS % (AUTO) 91 % (42-75); PLATELET COUNT 354 10^3/uL (130-400); RED CELL DISTRIBUTION WIDTH 13.4 % (10.0-14.5); WHITE BLOOD COUNT 14.2 10^3/uL (4.3-11.0)
[2017-07-26 06:48] LABS: ALANINE AMINOTRANSFERASE 31 U/L (0-55); ALKALINE PHOSPHATASE 94 U/L (40-136); BILIRUBIN,TOTAL 0.4 MG/DL (0.1-1.0); BUN/CREATININE RATIO 14; CALCIUM 9.7 MG/DL (8.5-10.1); CARBON DIOXIDE 22 MMOL/L (21-32); CHLORIDE 98 MMOL/L (98-107); GFR ESTIMATED > 60; GLUCOSE 203 MG/DL (70-105); POTASSIUM 4.3 MMOL/L (3.6-5.0); SODIUM 132 MMOL/L (135-145); TOTAL PROTEIN 7.3 GM/DL (6.4-8.2)
[2017-07-26 08:57] VITALS: BP 129/60
[2017-07-26] MEDS: AZITHROMYCIN 250 MG/NS 250 ML IVPB IV SCH ×2 (09:10)
--- NOTE | 2017-07-26 10:06 | History & Physical-Hospitalist ---
HPI History of Present Illness: HPI/Chief Complaint Mr. Martin is a 71-year-old white male who been having problems with shortness of breath and cough for the past 3 weeks. He had a prescription for Omnicef given in the emergency room on the was initially a little better but over the past 4 days had increased cough congestion with dyspnea on exertion. He denied chills fever or purulent sputum production. He probably had chest congestion denying any significant rhinorrhea or head congestion. He also denied sore throat. He had no night sweats chills or fever but did report reduction in appetite. Due to significant increase in shortness of breath without reported chest discomfort he presented to the emergency room where he did appear to be in some degree of respiratory distress partially alleviated by a breathing treatment. He reports a 50+ pack year smoking history but quit over 10 years ago. He does not recall these ever had pulmonary function test document COPD. He does have a past history of coronary artery disease with no recent diagnoses for acute coronary syndrome. Date Seen 07/26/17 Time Seen by Provider: 08:30 Attending Physician FABY CR M.D. PCP Coby Salgado MD Referring Physician Date of Admission Jul 25, 2017 at 10:40 Home Medications & Allergies Home Medications Reviewed patient Home Medication Reconciliation Form Allergies Allergies Coded Allergies No Known Drug Allergies (Unverified08/13/16) Past Dznflpu-Wkjvto-Liprrc Hx Patient Social History Alcohol Use: Denies Use Recreational Drug Use: No Smoking Status: Former Smoker Former Smoker, Quit: Jun 13, 2007 Type Used: Cigarettes Physical Abuse Screen: No Sexual Abuse: No Recent Foreign Travel: No Contact w/other who traveled: No Recent Hopitalizations: No Recent Infectious Disease Expo: No Immunizations Up To Date Tetanus Booster (TDap): More than 5yrs Date of Pneumonia Vaccine: Mar 13, 2014 Date of Influenza Vaccine: Apr 13, 2017 Seasonal Allergies Seasonal Allergies: Yes Surgeries Yes (cysts removed thumb/scapula, CAROTID ARTERY) Appendectomy, Coronary Stent Respiratory Yes (USES BIPAP, GETS SOB WITH EXERCISE) Currently Using CPAP: No Currently Using BIPAP: Yes Cardiovascular Yes (STENTS X2 PLACED 5 YRS AGO) Coronary Artery Disease, Heart Attack, High Cholesterol Neurological No Reproductive System Hx Reproductive Disorders: No Sexually Transmitted Disease: No HIV/AIDS: No Gastrointestinal Yes Gastroesophageal Reflux Musculoskeletal Yes (Closed reductions) Fractures Endocrine History of Endocrine Disorders: No Are Your Blood Sugars Over 250: No HEENT History of HEENT Disorders: Yes (glasses - near sighted ) Loss of Vision: Denies Hearing Impairment: Denies Cancer No Did You Recieve Any Treatments: No Psychosocial History of Psychiatric Problem: No Integumentary History of Skin or Integumenta: Yes (LESION ON RIGHT CHURCH) Blood Transfusions History of Blood Disorders: No (takes plavix ) Adverse Reaction to a Blood Tr: No (N/A) Family Medical History Family Hx: Abdominal aortic aneurysm 03 FATHER (DOESN'T KNOW MUCH ABOUT FAMILY HX) No Family History of: Cancer of colon Review of Systems Constitutional: see HPI, No chills, No diaphoresis, No dizziness, No fever, No malaise, weakness, No weight gain, No weight loss, No other Respiratory: No no symptoms reported, No see HPI, cough, dyspnea on exertion, No hemoptysis, No orthopnea, phlegm (Scant nonpurulent), short of breath, No stridor, wheezing, No other Cardiovascular: no symptoms reported, see HPI, No chest pain, No edema, Hx of Intervention (Distant past history of cardiac stent placement), No palpitations , No syncope, No vascular heart diseas, No other Physical Exam Physical Exam Vital Signs Vital Signs - First Documented 07/25/17 07/25/17 07/25/17 07:25 10:14 14:12 Temp 98.3 Pulse 107 Resp 24 B/P (MAP) 171/99 (123) Pulse Ox 93 O2 Delivery Room Air O2 Flow Rate 3.00 FiO2 32 Capillary Refill : Less Than 3 Seconds General Appearance: Mild Distress, Obese HEENT: PERRL/EOMI, Normal ENT Inspection, Pharynx Normal Neck: Full Range of Motion, Normal Inspection, Non Tender, Supple, Carotid Bruit Respiratory: Chest Non Tender, No Accessory Muscle Use, No Respiratory Distress , Other (Few scattered fine basilar rales with diminished breath sounds posteriorly. Anteriorly the chest is clear this is reported improvement in air movement from yesterday) Cardiovascular: Regular Rate, Rhythm, No Edema, No Gallop, No JVD, No Murmur, Normal Peripheral Pulses Gastrointestinal: Normal Bowel Sounds, No Organomegaly, No Pulsatile Mass, Non Tender, Soft Extremity: Normal Inspection, Normal Range of Motion, Non Tender, No Calf Tenderness, No Pedal Edema Neurologic/Psychiatric: Alert, Oriented x3, No Motor/Sensory Deficits, Normal Mood/Affect Results Results/Procedures Lab Laboratory Tests 07/25/17 08:02 07/26/17 06:13 Assessment/Plan Admission Diagnosis 1. Presumed acute exacerbation of COPD. We'll continue atypical coverage in the form of a azithromycin in addition to bronchodilator and anti-inflammatory therapy IV. I discussed with the patient the need for outpatient pulmonary function testing to document COPD when he is back to baseline respiratory status to get an accurate assessment of his baseline lung function. 2. History of coronary artery disease no evidence for acute coronary syndrome. Copy Copies To 1: COBY SALGADO MD Clinical Quality Measures DVT/VTE Risk/Contraindication: Risk Factor Score Per Nursin RFS Level Per Nursing on Admit: 4+=Very High FABY CR MD Jul 26, 2017 10:06
[2017-07-26] MEDS: ACETAMINOPHEN 500 MG TAB (TYLENOL) PO PRN (11:59)
[2017-07-26 12:00] VITALS: BP 114/55
[2017-07-26 15:34] VITALS: BP 133/60
[2017-07-26 19:21] VITALS: BP 120/57
[2017-07-27] VITALS: BP 152/77
[2017-07-27] MEDS: PROMETHAZINE/ CODEINE SYRUP 5 ML UDC PO PRN (02:04)
[2017-07-27] MEDS: methylPREDNISolone 40 MG/ML (Solu-MEDROL) VIAL IV SCH ×2 (02:04→08:48)
[2017-07-27] MEDS: ACETAMINOPHEN 500 MG TAB (TYLENOL) PO PRN (02:04)
[2017-07-27] MEDS: RT-ALBUTEROL/IPRATROPIUM 3 ML (DUONEB) VIAL INH SCH ×3 (02:51→15:29)
[2017-07-27 04:00] VITALS: BP 100/51
[2017-07-27 08:00] VITALS: BP 125/59
[2017-07-27] MEDS ORDERED: PRD20T PO (08:24)
[2017-07-27] MEDS: AZITHROMYCIN 250 MG/NS 250 ML IVPB IV SCH ×2 (08:49)
--- NOTE | 2017-07-27 11:37 | Discharge Summary-Hospitalist ---
Diagnosis/Chief Complaint Date of Admission Jul 25, 2017 at 10:40 Date of Discharge Discharge Date: Jul 27, 2017 Admission Diagnosis 1. Presumed acute exacerbation of COPD. We'll continue atypical coverage in the form of a azithromycin in addition to bronchodilator and anti-inflammatory therapy IV. I discussed with the patient the need for outpatient pulmonary function testing to document COPD when he is back to baseline respiratory status to get an accurate assessment of his baseline lung function. 2. History of coronary artery disease no evidence for acute coronary syndrome. Discharge Diagnosis 1. Acute COPD exacerbation secondary to viral bronchitis with reactive airways. 2. Steroid-induced hyperglycemia. 3. Hypertension Discharge Summary Discharge Physical Examination Allergies: Coded Allergies: No Known Drug Allergies (Unverified , 08/13/16) Vitals & I&Os Vital Signs Date Time Temp Pulse Resp B/P (MAP) Pulse Ox O2 Delivery O2 Flow Rate FiO2 07/27/17 09:22 92 Room Air 07/27/17 08:00 97.5 86 16 125/59 (81) 1.50 07/25/17 14:12 32 Hospital Course Mr. Martin is a 71-year-old white male who been having problems with shortness of breath and cough for the past 3 weeks. He had a prescription for Omnicef given in the emergency room on the was initially a little better but over the past 4 days had increased cough congestion with dyspnea on exertion. He denied chills fever or purulent sputum production. He probably had chest congestion denying any significant rhinorrhea or head congestion. He also denied sore throat. He had no night sweats chills or fever but did report reduction in appetite. Due to significant increase in shortness of breath without reported chest discomfort he presented to the emergency room where he did appear to be in some degree of respiratory distress partially alleviated by a breathing treatment. He reports a 50+ pack year smoking history but quit over 10 years ago. He does not recall these ever had pulmonary function test document COPD. He does have a past history of coronary artery disease with no recent diagnoses for acute coronary syndrome. Mr. Martin was admitted to the hospital and started on Solu-Medrol and DuoNeb via Maxi-Myst. Chest tightness and shortness of breath improved with diminishment in cough. Scant sputum remain nonpurulent and the patient remained afebrile. By his discharge he no longer was wheezing and ambulating in the hallways noticing improvement in dyspnea on exertion. He does have some diminished breath sounds posteriorly and a distant past history of heavy smoking suspicious for underlying COPD. It was advised that he at least undergo office-based spirometry to get an idea about his degree of COPD and whether or not chronic bronchodilator therapy may be of benefit. He was discharged on a prednisone taper. On higher dose IV steroids he did have 1 nonfasting sugar of 200 compatible with steroid-induced hyperglycemia. He will adhere to the lower carbohydrate diet and should've a basic metabolic panel on return to his primary care physician. He was advised to make an appointment in the next 1-2 weeks. Labs (last 24 hrs) Microbiology 07/25/17 Blood Culture - Preliminary, Resulted No growth 07/25/17 Influenza Types A,B Antigen (KAROLYN) - Final, Complete Discharge Home Medications: Active Scripts Active Prednisone 20 Mg Tab 40 Mg PO DAILY 5 Days Reported Mucinex (Guaifenesin) 600 Mg Tab.er.12h 600 Mg PO Q12H PRN Enalapril Maleate 5 Mg Tablet 5 Mg PO DAILY Ventolin Hfa (Albuterol Sulfate) 18 Gm Hfa.aer.ad 2 Puff IH QID PRN Carvedilol 3.125 Mg Tablet 3.125 Mg PO BID Atorvastatin Calcium 40 Mg Tablet 40 Mg PO DAILY Diphenhydramine HCl 25 Mg Tablet 25-50 Mg PO DAILY PRN TAKES 1-2 OF A (25 MG) TABLET / ALTERNATES WITH APRODINE Acid Job Printer (FAMOTIDINE) (Famotidine) 20 Mg Tablet 20 Mg PO PRN PRN Aprodine Tablet (Pseudoephedrine/Triprolidine) 1 Each Tablet 1 Tab PO TID PRN TYPICALLY ONLY TAKES ONCE DAILY NEEDED / ALTERNATES WITH DIPHENHYDRAMINE Aspirin EC (Aspirin) 81 Mg Tablet. 81 Mg PO DAILY Instructions to patient/family Please see electronic discharge instructions given to patient. Clinical Quality Measures DVT/VTE Risk/Contraindication: Risk Factor Score Per Nursin RFS Level Per Nursing on Admit: 4+=Very High FABY CR MD Jul 27, 2017 11:37
[2017-07-27 12:00] VITALS: BP 122/56
[2017-07-27 16:04] VITALS: BP 122/56
[2017-07-28] MEDS ORDERED: AZITHROMYCIN 250 MG TAB (ZITHROMAX) PO SCH (09:00)
--- OUTSIDE RECORDS SUMMARY | 2017-07-28 12:00 | XMS REPORT | Continuity of Care Document ---
Author Author [facility] Organization [facility] Address Unknown Phone Unavailable Allergies Active Description Code Type Severity Reaction Onset Reported/Identified Relationship to Patient Clinical Status Yes No Known Drug Allergies [id number] Drug Allergy Unknown N/A 08/13/2016 Medications There is no data. Problems Date Dx Coded Attending Type Code Diagnosis Diagnosed By 12/25/2010 Ot 211.3 12/25/2010 Ot 448.9 12/25/2010 Ot 569.0 06/19/2011 Ot 486 PNEUMONIA, ORGANISM NOS 06/19/2011 Ot 780.60 FEVER, UNSPECIFIED 08/17/2013 JULIO CÉSAR HOWELL MD Ot 433.10 CAROTID ARTERY OCCLUSION W O CEREBRAL IN 08/17/2013 JULIO CÉSAR HOWELL MD Ot V64.3 NO PROC FOR REASONS NEC 09/17/2015 ADRYAN NAVARRO MD Ot 272.4 09/17/2015 MELANIE SAEZ, ADRYAN Wilkins Ot 278.00 09/17/2015 ADRYAN NAVARRO MD Ot 401.9 09/17/2015 ADRYAN NAVARRO MD Ot 414.01 09/17/2015 ADRYAN NAVARRO MD Ot 433.10 09/17/2015 ADRYAN NAVARRO MD Ot 272.4 09/17/2015 ADRYAN NAVARRO MD Ot 278.00 09/17/2015 ADRYAN NAVARRO MD Ot 397.0 09/17/2015 ADRYAN NAVARRO MD Ot 401.9 09/17/2015 ADRYAN NAVARRO MD Ot 414.00 09/17/2015 ADRYAN NAVARRO MD Ot [...] MD Ot I25.10 ATHSCL HEART DISEASE OF [place] CORONARY 10/07/2015 ADRYAN NAVARRO MD Ot I65.23 [...] MD Ot I25.10 ATHSCL HEART DISEASE OF [place] CORONARY 10/09/2015 ADRYAN NAVARRO MD Ot J44.9 CHRONIC OBSTRUCTIVE PULMONARY DISEASE, U 10/09/2015 ADRYAN NAVARRO MD Ot R94.39 ABNORMAL RESULT OF OTHER CARDIOVASCULAR 10/09/2015 ADRYAN NAVARRO MD Ot Z68.33 BODY MASS INDEX (BMI) 33.0-33.9, ADULT 10/09/2015 ADRYAN NAVARRO MD Ot Z79.[address] CLERK (CURRENT) DRUG THERAPY 10/09/2015 ADRYAN NAVARRO MD Ot Z95.5 PRESENCE OF CORONARY ANGIOPLASTY IMPLANT 07/05/2016 IRASEMA BARTON APRN Ot I25.10 ATHSCL HEART DISEASE OF [place] CORONARY 07/05/2016 IRASEMA BARTON APRN Ot I25.2 OLD MYOCARDIAL INFARCTION 07/05/2016 IRASEMA BARTON APRN Ot K30 FUNCTIONAL DYSPEPSIA 07/05/2016 IRASEMA BARTON APRN Ot R07.9 CHEST PAIN, UNSPECIFIED 07/05/2016 IRASEMA BARTON APRN Ot Z79.02 USP (CURRENT) USE OF ANTITHROMBOTI 07/05/2016 IRASEMA BARTON APRN Ot Z79.82 USP (CURRENT) USE OF ASPIRIN 07/05/2016 IRASEMA BARTON APRN Ot Z79.[address] CLERK (CURRENT) DRUG THERAPY 07/05/2016 IRASEMA BARTON APRN Ot Z95.5 PRESENCE OF CORONARY ANGIOPLASTY IMPLANT 07/05/2016 ADRYAN NAVARRO MD Ot 272.4 HYPERLIPIDEMIA NEC/NOS 07/05/2016 ADRYAN NAVARRO MD Ot 278.00 OBESITY, NOS 07/05/2016 ADRYAN NAVARRO MD Ot 401.9 HYPERTENSION NOS 07/05/2016 ADRYAN NAVARRO MD Ot 414.01 CORONARY ATHEROSCLEROSIS OF [place] CORON 07/05/2016 ADRYAN NAVARRO MD Ot 433.10 [...] 07/05/2016 JULIO CÉSAR HOWELL MD Ot V72.81 FMIR-[id number] CARDIOVASCULAR 07/05/2016 JULIO CÉSAR HOWELL MD Ot V72.83 EXAM PRE-OPERATIVE NEC 07/05/2016 JULIO CÉSAR HOWELL MD Ot V72.84 EXAM PRE-OPERATIVE NOS 07/05/2016 JULIO CÉSAR HOWELL MD Ot V74.8 SCREEN-BACTERIAL DIS NEC 07/05/2016 ADRYAN NAVARRO MD Ot E78.2 MIXED HYPERLIPIDEMIA 07/05/2016 ADRYAN NAVARRO MD Ot I10 ESSENTIAL (PRIMARY) HYPERTENSION 07/05/2016 ADRYAN NAVARRO MD Ot I25.10 ATHSCL HEART DISEASE OF [place] CORONARY 07/05/2016 ADRYAN NAVARRO MD Ot I65.23 OCCLUSION AND STENOSIS OF [place] 07/05/2016 ADRYAN NAVARRO MD Ot R06.09 OTHER FORMS OF DYSPNEA 07/06/2016 IRASEMA BARTON APRN Ot I25.10 ATHSCL HEART DISEASE OF [place] CORONARY 07/06/2016 IRASEMA BARTON APRN Ot I25.2 OLD MYOCARDIAL INFARCTION 07/06/2016 IRASEMA BARTON APRN Ot K30 FUNCTIONAL DYSPEPSIA 07/06/2016 IRASEMA BARTON APRN Ot R07.9 CHEST PAIN, UNSPECIFIED 07/06/2016 IRASEMA BARTON APRN Ot Z79.[address] CLERK (CURRENT) USE OF ANTITHROMBOTI 07/06/2016 IRASEMA BARTON APRN Ot Z79.[address] CLERK (CURRENT) USE OF ASPIRIN 07/06/2016 IRASEMA BARTON APRN Ot Z79.899 OTHER USP (CURRENT) DRUG THERAPY 07/06/2016 IRASEMA BARTON APRN Ot Z95.5 PRESENCE OF CORONARY ANGIOPLASTY IMPLANT 07/15/2016 ADRYAN NAVARRO MD Ot 272.4 HYPERLIPIDEMIA NEC/NOS 07/15/2016 ADRYAN NAVARRO MD Ot 278.00 OBESITY, NOS 07/15/2016 ADRYAN NAVARRO MD Ot 401.9 HYPERTENSION NOS 07/15/2016 ADRYAN NAVARRO MD Ot 414.01 CORONARY ATHEROSCLEROSIS OF [place] CORON 07/15/2016 ADRYAN NAVARRO MD Ot 433.10 [...] 07/15/2016 JULIO CÉSAR HOWELL MD Ot V72.81 FIEV-[id number]-[id number] CARDIOVASCULAR 07/15/2016 JULIO CÉSAR HOWELL MD Ot V72.83 EXAM PRE-OPERATIVE NEC 07/15/2016 JULIO CÉSAR HOWELL MD Ot V72.84 EXAM PRE-OPERATIVE NOS 07/15/2016 JULIO CÉSAR HOWELL MD Ot V74.8 SCREEN-BACTERIAL DIS NEC 07/15/2016 ADRYAN NAVARRO MD Ot E78.2 MIXED HYPERLIPIDEMIA 07/15/2016 ADRYAN NAVARRO MD, Ot I10 ESSENTIAL (PRIMARY) HYPERTENSION 07/15/2016 ADRYAN NAVARRO MD Ot I25.10 ATHSCL HEART DISEASE OF [place] CORONARY 07/15/2016 ADRYAN NAVARRO MD Ot I65.23 [...] DO Ot I25.10 ATHSCL HEART DISEASE OF [place] CORONARY 07/15/2016 AYDE FRANCO DO Ot J44.9 CHRONIC OBSTRUCTIVE PULMONARY DISEASE, U 07/15/2016 AYDE FRANCO DO Ot K21.9 GASTRO-ESOPHAGEAL REFLUX DISEASE WITHOUT 07/15/2016 AYDE FRANCO DO Ot R07.89 OTHER CHEST PAIN 07/15/2016 AYDE FRANCO DO Ot Z68.34 BODY MASS INDEX (BMI) 34.0-34.9, ADULT 07/15/2016 AYDE FRANCO DO Ot Z79.899 OTHER USP (CURRENT) DRUG THERAPY 07/15/2016 AYDE FRANCO DO [...] DO Ot I25.10 ATHSCL HEART DISEASE OF [place] CORONARY 07/15/2016 AYDE FRANCO DO Ot J44.9 CHRONIC OBSTRUCTIVE PULMONARY DISEASE, U 07/15/2016 AYDE FRANCO DO Ot K21.9 GASTRO-ESOPHAGEAL REFLUX DISEASE WITHOUT 07/15/2016 AYDE FRANCO DO Ot R07.89 OTHER CHEST PAIN 07/15/2016 AYDE FRANCO DO Ot Z68.34 BODY MASS INDEX (BMI) 34.0-34.9, ADULT 07/15/2016 AYDE FRANCO DO Ot Z79.[address] CLERK (CURRENT) DRUG THERAPY 07/15/2016 AYDE FRANCO DO Ot Z87.891 PERSONAL HISTORY OF NICOTINE DEPENDENCE 07/15/2016 AYDE FRANCO DO Ot Z95.5 PRESENCE OF CORONARY ANGIOPLASTY IMPLANT 08/03/2016 LUKE MACK DO Ot R07.89 OTHER CHEST PAIN 08/03/2016 LUKE MACK DO Ot Z01.818 ENCOUNTER FOR [...] Ot K44.9 DIAPHRAGMATIC HERNIA WITHOUT OBSTRUCTION 08/18/2016 FREDERICK BAIN LUKE B Ot K25.9 GASTRIC ULCER, UNSP ACUTE OR CHRONIC, 08/18/2016 THERONELEUTERIO , LUKE B Ot K29.70 GASTRITIS, UNSPECIFIED, WITHOUT BLEEDING 08/18/2016 THERONELEUTERIO , LUKE B Ot K29.80 DUODENITIS WITHOUT BLEEDING 08/18/2016 THERONELEUTERIO DO LUKE B Ot K44.9 DIAPHRAGMATIC HERNIA WITHOUT OBSTRUCTION 08/24/2016 FREDERICK BAIN LUKE B Ot K25.9 GASTRIC ULCER, UNSP ACUTE OR CHRONIC, 08/24/2016 THERONELEUTERIO DO, LUKE B Ot K29.70 GASTRITIS, UNSPECIFIED, WITHOUT BLEEDING 08/24/2016 FREDERICK DO, LUKE B Ot K29.80 DUODENITIS WITHOUT BLEEDING 08/24/2016 FREDERICK BAIN LUKE B Ot K44.9 DIAPHRAGMATIC HERNIA WITHOUT OBSTRUCTION 09/02/2016 SHERRILL MACK DOIC B Ot L98.9 DISORDER OF THE SKIN AND SUBCUTANEOUS TI 09/02/2016 LUKE MACK DO Ot Z01.818 ENCOUNTER FOR OTHER PREPROCEDURAL EXAMIN 09/06/2016 SHERRILL MACK DOIC B Ot L85.8 OTHER SPECIFIED EPIDERMAL THICKENING 09/08/2016 SHERRILL MACK DOIC B Ot L85.8 OTHER SPECIFIED EPIDERMAL THICKENING 09/15/2016 LUKE MACK DO B Ot L85.8 OTHER SPECIFIED EPIDERMAL THICKENING 05/09/2017 JOAQUIN NATION Ot E78.2 MIXED HYPERLIPIDEMIA 05/09/2017 JOAQUIN NATION Ot I10 ESSENTIAL (PRIMARY) HYPERTENSION 05/09/2017 JOAQUIN NATION Ot I25.10 ATHSCL HEART DISEASE OF [place] CORONARY 05/09/2017 JOAQUIN NATION Ot I65.23 OCCLUSION AND STENOSIS OF [place] 07/14/2017 CHRISTIAN GONZALEZ Ot R06.00 DYSPNEA, UNSPECIFIED 07/14/2017 CHRISTIAN GONZALEZ Ot Z87.01 PERSONAL HISTORY OF PNEUMONIA (RECURRENT Procedures There is no data. Results Test Result Range Complete blood count (CBC) with automated white blood cell (WBC) differential - 07/05/16 19:10 Blood leukocytes automated count (number/volume) 9.1 10*3/uL 4.3-11.0 Blood erythrocytes automated count (number/volume) 4.65 10*6/uL 4.35-5.85 Venous blood hemoglobin measurement (mass/volume) 15.1 [...] Automated blood platelet mean volume measurement 8.9 [foz_us] 7.4-10.4 Automated blood neutrophils/100 leukocytes 69 % [...] Serum or plasma sodium measurement (moles/volume) 131 mmol/L 135-145 Serum or plasma potassium measurement (moles/volume) 4.2 mmol/L 3.6-5.0 Serum or plasma chloride measurement (moles/volume) 101 mmol/L 98-107 Carbon dioxide 19 mmol/L 21-32 Serum or plasma anion gap determination (moles/volume) 11 mmol/L 5-14 Serum or plasma urea nitrogen measurement (mass/volume) 11 mg/dL 7-18 Serum or plasma creatinine measurement (mass/volume) 0.93 mg/dL 0.60-1.30 Serum or plasma urea nitrogen/creatinine mass [...] or plasma troponin i.cardiac measurement (mass/volume) < ng/ mL <0.30 Myoglobin, serum - 07/05/16 19:10 Myoglobin, serum 66.2 ng/mL 10.0-92.0 Serum or plasma troponin i.cardiac measurement (mass/volume) - 07/05/16 20:10 Serum or plasma troponin i.cardiac measurement (mass/volume) < ng/ mL <0.30 Complete blood count (CBC) with automated white blood cell (WBC) differential - 07/15/16 01:19 Blood leukocytes automated count (number/volume) 9.9 10*3/uL 4.3-11.0 Blood erythrocytes automated count (number/volume) 4.64 10*6/uL 4.35-5.85 Venous blood hemoglobin measurement (mass/volume) 15.2 [...] Automated blood platelet mean volume measurement 9.3 [foz_us] 7.4-10.4 Automated blood neutrophils/100 leukocytes 72 % [...] Serum or plasma sodium measurement (moles/volume) 133 mmol/L 135-145 Serum or plasma potassium measurement (moles/volume) 3.6 mmol/L 3.6-5.0 Serum or plasma chloride measurement (moles/volume) 100 mmol/L 98-107 Carbon dioxide 18 mmol/L 21-32 Serum or plasma anion gap determination (moles/volume) 15 mmol/L 5-14 Serum or plasma urea nitrogen measurement (mass/volume) 9 mg/dL 7-18 Serum or plasma creatinine measurement (mass/volume) 0.99 mg/dL 0.60-1.30 Serum or plasma urea nitrogen/creatinine mass [...] or plasma troponin i.cardiac measurement (mass/volume) < ng/ mL <0.30 Myoglobin, serum - 07/15/16 01:19 Myoglobin, serum 60.7 ng/mL 10.0-92.0 Whole blood basic metabolic panel - 07/15/16 03:58 Serum or plasma sodium measurement (moles/volume) 133 mmol/L 135-145 Serum or plasma potassium measurement (moles/volume) 4.3 mmol/L 3.6-5.0 Serum or plasma chloride measurement (moles/volume) 103 mmol/L 98-107 Carbon dioxide 20 mmol/L 21-32 Serum or plasma anion gap determination (moles/volume) 10 mmol/L 5-14 Serum or plasma urea nitrogen measurement (mass/volume) 8 mg/dL 7-18 Serum or plasma creatinine measurement (mass/volume) 0.86 mg/dL 0.60-1.30 Serum or plasma urea nitrogen/creatinine mass ratio 9 NRG Serum or plasma creatinine measurement with calculation of estimated glomerular filtration rate > NRG Serum or plasma glucose measurement (mass/volume) 114 mg/dL 70-105 Serum or plasma calcium measurement (mass/volume) 9.2 mg/dL 8.5-10.1 Serum or plasma phosphate measurement (mass/volume) - 07/15/16 03:58 Serum or plasma phosphate measurement (mass/volume) 2.7 mg/dL 2.3-4.7 Magnesium - 07/15/16 03:58 Magnesium 2.4 mg/dL 1.8-2.4 Lipid 1996 panel - 07/15/16 03:58 Serum or plasma triglyceride measurement (mass/volume) 162 mg/dL <150 Serum or plasma cholesterol measurement (mass/volume) 120 mg/dL < 200 Serum or plasma cholesterol in HDL measurement (mass/volume) 26 mg/ dL 40-60 Cholesterol in LDL [mass/volume] in serum or plasma by direct assay 67 mg/dL 1-129 Serum or plasma cholesterol in VLDL measurement (mass/volume) 32 mg/ dL 5-40 Serum or plasma creatine kinase measurement (enzymatic activity/volume) - 07/15 07:15 Serum or plasma creatine kinase measurement (enzymatic activity/volume) 91 U/L 30-200 Serum or plasma troponin i.cardiac measurement (mass/volume) - 07/15/16 07:15 Serum or plasma troponin i.cardiac measurement (mass/volume) < ng/ mL <0.30 Methicillin resistant Staphylococcus aureus (MRSA) screening culture - 07:10 Methicillin resistant Staphylococcus aureus (MRSA) screening culture NEG NRG Complete blood count (CBC) with automated white blood cell (WBC) differential - 07/03/17 23:20 Blood leukocytes automated count (number/volume) 7.9 10*3/uL 4.3-11.0 Blood erythrocytes automated count (number/volume) 4.63 10*6/uL 4.35-5.85 Venous blood hemoglobin measurement (mass/volume) 14.9 g/dL 13.3-17.7 Blood hematocrit (volume fraction) 42 % 40-54 Automated erythrocyte mean corpuscular volume 92 [foz_us] 80-99 Automated erythrocyte mean corpuscular hemoglobin (mass per erythrocyte) 32 pg 25-34 Automated erythrocyte mean corpuscular hemoglobin concentration measurement ( mass/volume) 35 g/dL 32-36 Automated erythrocyte distribution width ratio 13.5 % 10.0-14.5 Automated blood platelet count (count/volume) 276 10*3/uL 130-400 Automated blood platelet mean volume measurement 9.1 [foz_us] 7.4-10.4 Automated blood neutrophils/100 leukocytes 65 % 42-75 Automated blood lymphocytes/100 leukocytes 16 % 12-44 Blood monocytes/100 leukocytes 19 % 0-12 Automated blood eosinophils/100 leukocytes 0 % 0-10 Automated blood basophils/100 leukocytes 0 % 0-10 Blood neutrophils automated count (number/volume) 5.2 10*3 1.8-7.8 Blood lymphocytes automated count (number/volume) 1.3 10*3 1.0-4.0 Blood monocytes automated count (number/volume) 1.5 10*3 0.0-1.0 Automated eosinophil count 0.0 10*3/uL 0.0-0.3 Automated blood basophil count (count/volume) 0.0 10*3/uL 0.0-0.1 Blood manual differential performed detection - 07/03/17 23:20 Blood monocytes/100 leukocytes 20 % NR Manual blood segmented neutrophils/100 leukocytes 64 % NRG Blood band neutrophils/100 leukocytes 1 % NRG Manual blood lymphocytes/100 leukocytes 11 % NRG Manual eosinophils/100 leukocytes in nose 0 % NRG Manual blood basophils/100 leukocytes 0 % NRG Blood lymphocytes variant/100 leukocytes 4 % NR Blood erythrocyte morphology finding identification [facility] Influenza virus A and B antigen detection - 07/03/17 23:20 FLU RESULT NEGATIVE FOR INFLUENZA A AND B ANTIGENS BY IA [facility] Whole blood basic metabolic panel - 07/03/17 23:20 Serum or plasma sodium measurement (moles/volume) 132 mmol/L 135-145 Serum or plasma potassium measurement (moles/volume) 3.7 mmol/L 3.6-5.0 Serum or plasma chloride measurement (moles/volume) 100 mmol/L 98-107 Carbon dioxide 20 mmol/L 21-32 Serum or plasma anion gap determination (moles/volume) 12 mmol/L 5-14 Serum or plasma urea nitrogen measurement (mass/volume) 11 mg/dL 7-18 Serum or plasma creatinine measurement (mass/volume) 0.92 mg/dL 0.60-1.30 Serum or plasma urea nitrogen/creatinine mass ratio 12 NRG Serum or plasma creatinine measurement with calculation of estimated glomerular filtration rate > NRG Serum or plasma glucose measurement (mass/volume) 117 mg/dL 70-105 Serum or plasma calcium measurement (mass/volume) 9.4 mg/dL 8.5-10.1 Serum or plasma lithium measurement (moles/volume) - 07/03/17 23:20 BNP level 84.4 pg/mL <100.0 Encounters ACCT No. Visit Date/Time Discharge Status Pt. Type Provider Facility Loc./Unit Complaint [id number] 07/13/2017 14:51:00 07/13/2017 23:59:59 CLS Outpatient CHRISTIAN GONZALZE [employer] [facility] RAD R06.00, J18.9 [id number] 07/03/2017 22:19:00 07/04/2017 00:19:00 DIS Emergency IRASEMA BARTON APRN [facility] ER COUGH, "TAKES BREATHE AWAY " [id number] 04/15/2017 12:56:00 04/15/2017 23:59:59 CLS Outpatient JOAQUIN NATION [facility] CARD CAD I25.10, [id number] 09/06/2016 06:43:00 09/06/2016 10:40:00 DIS Outpatient LUKE MACK DO [facility] SDC LESION RIGHT ANABAPTISM [id number] 09/02/2016 05:33:00 09/02/2016 10:13:00 DIS Outpatient LUKE MACK DO [facility] PREOP REMOVAL SKIN LESION RIGHT ANABAPTISM [id number] 08/17/2016 07:32:00 08/17/2016 10:30:00 DIS Outpatient LUKE MACK DO [facility] ENDO CHEST PAIN [id number] 08/13/2016 09:00:00 08/13/2016 09:30:00 DIS Outpatient LUKE MACK DO [facility] PREOP CHEST PAIN [id number] 08/02/2016 06:00:00 08/02/2016 13:33:00 DIS Outpatient LUKE MACK DO [facility] PREOP CHEST PAIN [id number] 07/15/2016 02:53:00 07/15/2016 14:30:00 DIS Inpatient AYDE FRANCO DO [facility] ICU CHEST PAIN,CAD [id number] 07/05/2016 18:56:00 07/05/2016 21:17:00 DIS Emergency IRASEMA BARTON [employer] [facility] ER CP [id number] 10/08/2015 06:57:00 10/09/2015 10:30:00 DIS Outpatient ADRYAN NAVARRO MD [facility] CATH ABNORMAL STRESS, CAD, HLP [id number] 09/17/2015 07:05:00 09/17/2015 23:59:59 CLS Outpatient ADRYAN NAVARRO MD [facility] CARD CAD,FLORES,HTN MIXED HLP [id number] 08/21/2013 12:55:00 08/21/2013 23:59:59 CLS Outpatient ADRYAN NAVARRO MD [facility] CARD CAD,HTN,HLP [id number] 08/17/2013 06:18:00 08/17/2013 11:12:00 DIS Inpatient JULIO CÉSAR HOWELL MD [facility] SURG RIGHT CAROTID STENOSIS [id number] 08/15/2013 08:04:00 08/15/2013 23:59:59 CLS Outpatient JULIO CÉSAR HOWELL MD [facility] PREOP RIGHT CAROTID STENOSIS [id number] 08/07/2013 06:26:00 08/07/2013 23:59:59 CLS Outpatient ADRYAN NAVARRO MD [facility] RAD CAD,HTN,HLP [id number] 06/19/2011 15:02:00 Document Registration [id number] 12/25/2010 08:34:00 Document Registration
--- OUTSIDE RECORDS SUMMARY | 2017-07-28 12:24 | XMS REPORT | Continuity of Care Document ---
Author Author [facility] Organization [facility] Address Unknown Phone Unavailable Allergies Active Description Code Type Severity Reaction Onset Reported/Identified Relationship to Patient Clinical Status Yes No Known Drug Allergies [id number] Drug Allergy Unknown N/A 08/13/2016 Medications There [...] MD Ot I25.10 ATHSCL HEART DISEASE OF [place] CORONARY 10/07/2015 ADRYAN NAVARRO MD Ot I65.23 [...] MD Ot I25.10 ATHSCL HEART DISEASE OF [place] CORONARY 10/09/2015 ADRYAN NAVARRO MD Ot J44.9 CHRONIC OBSTRUCTIVE PULMONARY DISEASE, U 10/09/2015 ADRYAN NAVARRO MD Ot R94.39 ABNORMAL RESULT OF OTHER CARDIOVASCULAR 10/09/2015 ADRYAN NAVARRO MD Ot Z68.33 BODY MASS INDEX (BMI) 33.0-33.9, ADULT 10/09/2015 ADRYAN NAVARRO MD Ot 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 10/09/2015 ADRYAN NAVARRO MD Ot Z95.5 PRESENCE OF CORONARY ANGIOPLASTY IMPLANT 07/05/2016 IRASEMA BARTON APRN Ot I25.10 ATHSCL HEART DISEASE OF [place] CORONARY 07/05/2016 IRASEMA BARTON APRN Ot I25.2 OLD MYOCARDIAL INFARCTION 07/05/2016 IRASEMA BARTON APRN Ot K30 FUNCTIONAL DYSPEPSIA 07/05/2016 IRASEMA BARTON APRN Ot R07.9 CHEST PAIN, UNSPECIFIED 07/05/2016 IRASEMA BARTON APRN Ot Z79.02 RETIREMENT (CURRENT) USE OF ANTITHROMBOTI 07/05/2016 IRASEMA BARTON APRN Ot Z79.82 RETIREMENT (CURRENT) USE OF ASPIRIN 07/05/2016 IRASEMA BARTON APRN Ot 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 07/05/2016 IRASEMA BARTON APRN Ot Z95.5 PRESENCE OF CORONARY ANGIOPLASTY IMPLANT 07/05/2016 ADRYAN NAVARRO MD Ot 272.4 HYPERLIPIDEMIA NEC/NOS 07/05/2016 ADRYAN NAVARRO MD Ot 278.00 OBESITY, NOS 07/05/2016 ADRYAN NAVARRO MD Ot 401.9 HYPERTENSION NOS 07/05/2016 ADRYAN NAVARRO MD Ot 414.01 CORONARY ATHEROSCLEROSIS OF [place] CORON 07/05/2016 ADRYAN NAVARRO MD Ot 433.10 [...] 07/05/2016 JULIO CÉSAR HOWELL MD Ot V72.81 [id number] CARDIOVASCULAR 07/05/2016 JULIO CÉSAR HOWELL MD Ot V72.83 EXAM PRE-OPERATIVE NEC 07/05/2016 JULIO CÉSAR HOWELL MD Ot V72.84 EXAM PRE-OPERATIVE NOS 07/05/2016 JULIO CÉSAR HOWELL MD Ot V74.8 SCREEN-BACTERIAL DIS NEC 07/05/2016 ADRYAN NAVARRO MD Ot E78.2 MIXED HYPERLIPIDEMIA 07/05/2016 ADRYAN NAVARRO MD Ot I10 ESSENTIAL (PRIMARY) HYPERTENSION 07/05/2016 ADRYAN NAVARRO MD Ot I25.10 ATHSCL HEART DISEASE OF [place] CORONARY 07/05/2016 ADRYAN NAVARRO MD Ot I65.23 OCCLUSION AND STENOSIS OF [place]ATER[place] 07/05/2016 ADRYAN NAVARRO MD Ot R06.09 OTHER FORMS OF DYSPNEA 07/06/2016 IRASEMA BARTON APRN Ot I25.10 ATHSCL HEART DISEASE OF [place] CORONARY 07/06/2016 IRASEMA BARTON APRN Ot I25.2 OLD MYOCARDIAL INFARCTION 07/06/2016 IRASEMA BARTON APRN Ot K30 FUNCTIONAL DYSPEPSIA 07/06/2016 IRASEMA BARTON APRN Ot R07.9 CHEST PAIN, UNSPECIFIED 07/06/2016 IRASEMA BARTON APRN Ot Z79.02 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 SOFTWARE ENGINEERING MANAGER (CURRENT) USE OF ANTITHROMBOTI 07/06/2016 IRASEMA BARTON APRN Ot Z79.82 SENIOR SOFTWARE ENGINEERING MANAGER (CURRENT) USE OF ASPIRIN 07/06/2016 IRASEMA BARTON APRN Ot Z79.899 OTHER RETIREMENT (CURRENT) DRUG THERAPY 07/06/2016 IRASEMA BARTON APRN Ot Z95.5 PRESENCE OF CORONARY ANGIOPLASTY IMPLANT 07/15/2016 ADRYAN NAVARRO MD Ot 272.4 HYPERLIPIDEMIA NEC/NOS 07/15/2016 ADRYAN NAVARRO MD Ot 278.00 OBESITY, NOS 07/15/2016 ADRYAN NAVARRO MD Ot 401.9 HYPERTENSION NOS 07/15/2016 ADRYAN NAVARRO MD Ot 414.01 CORONARY ATHEROSCLEROSIS OF [place] CORON 07/15/2016 ADRYAN NAVARRO MD Ot 433.10 [...] 07/15/2016 JULIO CÉSAR HOWELL MD Ot V72.81 [id number] CARDIOVASCULAR 07/15/2016 JULIO CÉSAR HOWELL MD Ot V72.83 EXAM PRE-OPERATIVE NEC 07/15/2016 JULIO CÉSAR HOWELL MD Ot V72.84 EXAM PRE-OPERATIVE NOS 07/15/2016 JULIO CÉSAR HOWELL MD Ot V74.8 SCREEN-BACTERIAL DIS NEC 07/15/2016 ADRYAN NAVARRO MD Ot E78.2 MIXED HYPERLIPIDEMIA 07/15/2016 ADRYAN NAVARRO MD, Ot I10 ESSENTIAL (PRIMARY) HYPERTENSION 07/15/2016 ADRYAN NAVARRO MD Ot I25.10 ATHSCL HEART DISEASE OF [place] CORONARY 07/15/2016 ADRYAN NAVARRO MD Ot I65.23 [...] DO Ot I25.10 ATHSCL HEART DISEASE OF [place] CORONARY 07/15/2016 AYDE FRANCO DO Ot J44.9 CHRONIC OBSTRUCTIVE PULMONARY DISEASE, U 07/15/2016 AYDE FRANCO DO Ot K21.9 GASTRO-ESOPHAGEAL REFLUX DISEASE WITHOUT 07/15/2016 AYDE FRANCO DO Ot R07.89 OTHER CHEST PAIN 07/15/2016 AYDE FRANCO DO Ot Z68.34 BODY MASS INDEX (BMI) 34.0-34.9, ADULT 07/15/2016 AYDE FRANCO DO Ot Z79.899 OTHER RETIREMENT (CURRENT) DRUG THERAPY 07/15/2016 AYDE FRANCO DO [...] DO Ot I25.10 ATHSCL HEART DISEASE OF [place] CORONARY 07/15/2016 AYDE FRANCO DO Ot J44.9 CHRONIC OBSTRUCTIVE PULMONARY DISEASE, U 07/15/2016 AYDE FRANCO DO Ot K21.9 GASTRO-ESOPHAGEAL REFLUX DISEASE WITHOUT 07/15/2016 AYDE FRANCO DO Ot R07.89 OTHER CHEST PAIN 07/15/2016 AYDE FRANCO DO Ot Z68.34 BODY MASS INDEX (BMI) 34.0-34.9, ADULT 07/15/2016 AYDE FRANCO DO Ot 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 Influenza virus A and B antigen detection - 07/03/17 23:20 FLU RESULT NEGATIVE FOR INFLUENZA A AND B ANTIGENS BY IA [facility] Whole blood basic metabolic panel - 07/03/17 [...] Status Pt. 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 R06.00, J18.9 [id number] 07/03/2017 22:19:00 07/04/2017 00:19:00 DIS Emergency IRASEMA BARTON APRN [facility] ER COUGH, "TAKES BREATHE AWAY " [id number] 04/15/2017 12:56:00 04/15/2017 23:59:59 CLS Outpatient JOAQUIN NATION [facility] CARD CAD I25.10, [id number] 09/06/2016 06:43:00 09/06/2016 10:40:00 DIS Outpatient LUKE MACK DO [facility] SDC LESION RIGHT RESTORATIONISM [id number] 09/02/2016 05:33:00 09/02/2016 10:13:00 DIS Outpatient LUKE MACK DO [facility] PREOP REMOVAL SKIN LESION RIGHT RESTORATIONISM [id number] 08/17/2016 07:32:00 08/17/2016 10:30:00 DIS Outpatient LUKE MACK DO [facility] ENDO CHEST PAIN [id number] 08/13/2016 09:00:00 08/13/2016 09:30:00 DIS Outpatient LUKE MACK DO [facility] PREOP CHEST PAIN [id number] 08/02/2016 06:00:00 08/02/2016 13:33:00 DIS Outpatient LUKE MACK DO [facility] PREOP CHEST PAIN [id number] 07/15/2016 02:53:00 07/15/2016 14:30:00 DIS Inpatient AYDE FRANCO DO [facility] ICU CHEST PAIN,CAD [id number] 07/05/2016 18:56:00 07/05/2016 21:17:00 DIS 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 [facility] ER CP [id number] 10/08/2015 06:57:00 10/09/2015 10:30:00 DIS Outpatient ADRYAN NAVARRO MD [facility] CATH ABNORMAL STRESS, CAD, HLP [id number] 09/17/2015 07:05:00 09/17/2015 23:59:59 CLS Outpatient ADRYAN NAVARRO MD [facility] CARD CAD,FLORES,HTN MIXED HLP [id number] 08/21/2013 12:55:00 08/21/2013 23:59:59 CLS Outpatient ADRYAN NAVARRO MD [facility] CARD CAD,HTN,HLP [id number] 08/17/2013 06:18:00 08/17/2013 11:12:00 DIS Inpatient JULIO CÉSAR HOWELL MD [facility] SURG RIGHT CAROTID STENOSIS [id number] 08/15/2013 08:04:00 08/15/2013 23:59:59 CLS Outpatient JULIO CÉSAR HOWELL MD [facility] PREOP RIGHT CAROTID STENOSIS [id number] 08/07/2013 06:26:00 08/07/2013 23:59:59 CLS Outpatient ADRYAN NAVARRO MD [facility] RAD CAD,HTN,HLP [id number] 06/19/2011 15:02:00 Document Registration [id number] 12/25/2010 08:34:00 Document Registration
== END 2017-07-27 16:07 | disposition home or self-care (01) | DRG 192 ==
LOC: EDUNIT# 07:11 → ER 07:14 → 4TH 10:40
PROVIDERS: ADMIT Internal Medicine; ATTEND Internal Medicine
DX: J44.1 Chronic obstructive pulmonary disease with (acute) exacerbation (principal); J20.8 Acute bronchitis due to other specified organisms; J45.909 Unspecified asthma, uncomplicated; I25.10 Atherosclerotic heart disease of native coronary artery without angina pectoris; I10 Essential (primary) hypertension; R73.9 Hyperglycemia, unspecified; T38.0X5A Adverse effect of glucocorticoids and synthetic analogues, initial encounter; I25.2 Old myocardial infarction; G47.30 Sleep apnea, unspecified; E78.00 Pure hypercholesterolemia, unspecified; K21.9 Gastro-esophageal reflux disease without esophagitis; Z87.891 Personal history of nicotine dependence; Z87.01 Personal history of pneumonia (recurrent); Z95.5 Presence of coronary angioplasty implant and graft
CPT/HCPCS: 36415; 71046; 80053; 83605; 83735; 83880; 84484; 85007; 85025; 85027; 85610; 85730; 86141; 87040; 87804; 93005; 94640; 94760; 96361; 96365; 96375

== ENCOUNTER → 2018-03-13 | Outpatient (CLI) | payer MEDICARE, OTHER ==
[~2018-03-13] MED LIST changes: +ALBU18HF2 IH; +ATOR40TA70 PO; +BENZ200C51 PO; +FLUT1DIS28 IH; +GUAI120L56 PO; +GUAI600T43 PO; +PRD20T PO; +RT-ALBUTEROL SULF 2.5 MG/3 ML PRE-MIX VIAL INH ONE
--- NOTE | 2018-03-13 16:47 | Diagnostic Imaging Report ---
PROCEDURE: CT chest without contrast. TECHNIQUE: Multiple contiguous axial images were obtained through the chest without the use of intravenous contrast. INDICATION: Seasonal allergies. Viral issue. Cough. COMPARISON: Chest radiographs 07/31/2017. FINDINGS: Moderate to advanced paraseptal emphysematous changes are greatest in the anterior right upper lobe and lingula. No suspicious pulmonary nodule or mass. No endobronchial lesions. No pleural effusion or pneumothorax. No mediastinal, hilar or axillary lymphadenopathy. Moderate atherosclerotic calcifications including coronary and aortic. Normal-caliber thoracic aorta and main pulmonary arteries. Normal heart size. No pericardial effusion. Cholelithiasis without secondary findings of cholecystitis. No acute CT findings in the visualized upper abdomen. Moderate to advanced spondylotic changes in the visualized spine. No acute osseous findings. IMPRESSION: 1. Moderate to advanced paraseptal emphysema. 2. No acute CT findings in the chest. 3. Moderate atherosclerotic calcifications including coronary and aortic. Dictated by: Dictated on workstation # [id number]
== END ==
LOC: RAD 14:27
PROVIDERS: ATTEND Nurse Practitioner Family
DX: J43.8 Other emphysema (principal); J30.2 Other seasonal allergic rhinitis; I25.10 Atherosclerotic heart disease of native coronary artery without angina pectoris; I70.0 Atherosclerosis of aorta; Z87.891 Personal history of nicotine dependence
CPT/HCPCS: 71250; 94060; 94726; 94729; 94761

== ENCOUNTER 2018-11-20 13:00 | Outpatient (RCR) | payer MEDICARE, OTHER ==
[~2018-11-20 13:00] MED LIST changes: -RT-ALBUTEROL SULF 2.5 MG/3 ML PRE-MIX VIAL INH ONE
== END 2018-11-22 | disposition home or self-care (01) ==
PROVIDERS: ATTEND Physical Medicine & Rehabilitation
DX: M54.5 Low back pain (principal)

== ENCOUNTER 2019-01-29 15:09 | Outpatient (RCR) | payer MEDICARE, OTHER | END 2019-02-22 | disposition home or self-care (01) | PROVIDERS: ATTEND Physical Medicine & Rehabilitation | DX: M54.5 Low back pain (principal) ==

== ENCOUNTER → 2019-05-17 | Outpatient (CLI) | payer MEDICARE, OTHER | LOC: CARD 11:26 | PROVIDERS: ATTEND Physician Assistant | DX: I25.10 Atherosclerotic heart disease of native coronary artery without angina pectoris (principal); I65.29 Occlusion and stenosis of unspecified carotid artery; J44.9 Chronic obstructive pulmonary disease, unspecified | CPT/HCPCS: 93306 ==

== ENCOUNTER → 2019-05-21 | Outpatient (CLI) | payer MEDICARE, OTHER ==
[~2019-05-21] VITALS: Ht 175 cm; Wt 112.0 kg
[~2019-05-21] MED LIST changes: +ACET-2267 PO; +CATHETER FLUSH 10 ML SYR IV PRN; +CETI10TA17 PO; +DIPH25CA79 PO; +ENLP5T PO; +FLUT15.845 NS; +FLUT1DIS26 IH; +HYDR-3812 PO; +IBUP-30 PO; +IPRA30SP NS; +LOSA50TA63 PO; +MONT10TA24 PO; +NFIPRATRNS NS; +REGADENOSON 0.4 MG/5 ML SYR (LEXISCAN) IV ONE; +RT-ALBUINH IH; +RT-ALBUINH INH; +TRM50T PO
--- NOTE | 2019-05-21 23:57 | STRESS TEST ---
DATE OF SERVICE: 05/21/2019 LEXISCAN MYOVIEW STRESS TEST REPORT REFERRING PHYSICIAN: Dr. Carrasco Baseline heart rate is 58, baseline blood pressure 175/86. Baseline EKG is sinus rhythm with no ischemic changes. In summary, the patient was injected with 9.41 mCi of technetium-99 Myoview and the resting images were obtained. Then, the patient received 0.4 mg of Lexiscan followed by 29.0 mCi of technetium-99 Myoview. Throughout the test, there were no EKG changes. The resting and stress images were reviewed and compared in the short axis, horizontal long axis, and vertical long axis views. Review of the images showed good radiotracer uptake with no significant ischemia or infarction. SSS is 2, SDS 2, TID value 1.08. On the gated images, the left ventricle appeared to be normal size with normal contractility. Calculated ejection fraction 58%. CONCLUSIONS: 1. The patient tolerated Lexiscan well. 2. No ischemia or infarction on SPECT images. 3. Normal left ventricular size with normal contractility. Calculated ejection fraction 58%. Job ID: [id number] DocumentID: [id number] Dictated Date: 05/21/2019 17:37:22 Putaway Driver Date: 05/21/2019 23:57:02 Dictated By: ADRYAN NAVARRO MD
== END ==
LOC: CARD 07:45
PROVIDERS: ATTEND Physician Assistant
DX: I25.10 Atherosclerotic heart disease of native coronary artery without angina pectoris (principal); I65.29 Occlusion and stenosis of unspecified carotid artery; J44.9 Chronic obstructive pulmonary disease, unspecified
CPT/HCPCS: 78452; 93017

== ENCOUNTER → 2019-06-25 | Outpatient (CLI) | payer MEDICARE, OTHER ==
[~2019-06-25] VITALS: Ht 175 cm; Wt 113.4 kg
[~2019-06-25] MED LIST changes: -ACET-2267 PO; -CATHETER FLUSH 10 ML SYR IV PRN; -DIPH25CA79 PO; -HYDR-3812 PO; -IBUP-30 PO; -IPRA30SP NS; -REGADENOSON 0.4 MG/5 ML SYR (LEXISCAN) IV ONE; -RT-ALBUINH IH; -RT-ALBUINH INH
[2019-06-25 14:14] VITALS: BP 151/85
== END | disposition home or self-care (01) ==
LOC: PREOP 13:44
PROVIDERS: ATTEND Orthopaedic Surgery
DX: Z01.818 Encounter for other preprocedural examination (principal)
CPT/HCPCS: 87081

== ENCOUNTER 2019-07-02 06:21 | Inpatient (IN) | payer MEDICARE, OTHER ==
[2019-07-02] VITALS (10 sets, daily range): BP systolic 112–155; BP diastolic 67–86
[~2019-07-02] VITALS: Ht 175 cm; Wt 113.4 kg
[~2019-07-02 06:21] MED LIST changes: +IPRA30SP NS; +RT-ALBUINH IH
[2019-07-02] MEDS ORDERED: ceFAZolin 2 GM/50 ML NS 50 ML IV ONE (06:30)
[2019-07-02] MEDS ORDERED: BUP/EPI 0.5% 1:200,000 (SENSORCAINE) 30 ML VIAL ONE ×2 (06:48→09:28)
[2019-07-02] MEDS ORDERED: LIDOCAINE PF 2% 5 ML (XYLOCAINE) VIAL ONE (06:58)
[2019-07-02] MEDS ORDERED: proPOfol 200 MG/20 ML (DIPRIVAN) VIAL IV ONE (06:58)
[2019-07-02] MEDS ORDERED: NEOSTIGMINE 3 MG/3 ML VIAL ONE (06:58)
[2019-07-02] MEDS ORDERED: ROCURONIUM 10 MG/ML 5 ML SYRINGE IV ONE ×2 (06:58→09:46)
[2019-07-02] MEDS ORDERED: ONDANSETRON 4 MG/2 ML (SDV) Z0FRAN ONE (06:58)
[2019-07-02] MEDS ORDERED: PROPOFOL INJECTION 50 ML IV ONE ×5 (06:58→10:45)
[2019-07-02] MEDS ORDERED: SUCCINYLCHOLINE INJ 100 MG/5 ML SYR ONE (06:58)
[2019-07-02] MEDS ORDERED: DEXAMETHASONE 10 MG/ML (DECADRON) 1 ML VIAL ONE (06:58)
[2019-07-02] MEDS ORDERED: GLYCOPYRROLATE 0.2 MG/ML (ROBINUL) 2 ML VIAL ONE (06:58)
[2019-07-02] MEDS ORDERED: SEVOFLURANE (ULTANE) 15 ML INHAL SOLN ONE ×8 (06:58→13:57)
[2019-07-02 06:59] LABS: BASOPHILS % (AUTO) 0 % (0-10); EOSINOPHILS # (AUTO) 0.2 10^3/uL (0.0-0.3); EOSINOPHILS % (AUTO) 2 % (0-10); HEMATOCRIT 45 % (40-54); HEMOGLOBIN 15.3 G/DL (13.3-17.7); LYMPHOCYTES # (AUTO) 2.2 X 10^3 (1.0-4.0); LYMPHOCYTES % (AUTO) 19 % (12-44); MEAN CORPUSCULAR HEMOGLOBIN 33 PG (25-34); MEAN CORPUSCULAR HGB CONC 34 G/DL (32-36); MEAN CORPUSCULAR VOLUME 97 FL (80-99); MEAN PLATELET VOLUME 9.3 FL (7.4-10.4); MONOCYTES % (AUTO) 9 % (0-12); NEUTROPHILS # (AUTO) 7.9 X 10^3 (1.8-7.8); NEUTROPHILS % (AUTO) 70 % (42-75); PLATELET COUNT 335 10^3/uL (130-400); RED CELL DISTRIBUTION WIDTH 13.4 % (10.0-14.5); WHITE BLOOD COUNT 11.3 10^3/uL (4.3-11.0)
[2019-07-02] MEDS ORDERED: fentaNYL INJECTION 250 MCG/5 ML AMP ONE (06:59)
[2019-07-02] MEDS ORDERED: VANCOMYCIN 1000 MG/VIAL ONE (07:00)
[2019-07-02] MEDS ORDERED: BACITRACIN OINTMENT 28 GM TUBE ONE (07:00)
[2019-07-02] MEDS ORDERED: 0.9% SODIUM CHLORIDE PF INJ 20 ML VIAL ONE (07:00)
[2019-07-02] MEDS: LACTATED RINGERS 1,000 ML IV PRN ×2 (07:28→08:59)
[2019-07-02] MEDS ORDERED: BACITRACIN 100,000 UNIT/NS 1000 ML POUR BOTTLE IR ONE ×2 (08:00)
[2019-07-02] MEDS ORDERED: SUGAMMADEX 500 MG/5 ML VIAL (BRIDION) IV ONE (10:36)
[2019-07-02] MEDS ORDERED: BSS 15 ML ONE (11:17)
[2019-07-02] MEDS ORDERED: ACETAMINOPHEN 325 MG TABLET PO PRN (11:45)
[2019-07-02] MEDS ORDERED: ONDANSETRON 4 MG/2 ML (SDV) Z0FRAN IV PRN (11:45)
[2019-07-02] MEDS ORDERED: HYDROmorphone 2 MG/ML VIAL (DILAUDID) IV ONE (11:45)
[2019-07-02] MEDS ORDERED: ONDANSETRON 4 MG/2 ML (SDV) Z0FRAN IVP PRN (11:45)
[2019-07-02] MEDS ORDERED: NON-FORMULARY MEDICATION 1 EA EA (Ipratropium Bromide 2 SPRAYS) NS PRN (11:45)
[2019-07-02] MEDS ORDERED: morphine INJ 10 MG/ML 1ML (SYR OR VIAL) IVP ONE (11:45)
--- NOTE | 2019-07-02 12:40 | NUR ---
CECILIA BARTON admitted to room OR-1, with an admitting diagnosis of LUMBAR 3-5 DIRECT LATERAL INTERBODY FUSION WITH RIGHT LUMBAR 3-5 FASECTOMY AND LUMBAR 3-5 POSTERIOR FUSION, on 07/02/19 from DAY SURGERY via [facility], accompanied by MERCED AND KATIE TIMMONS, RN'S. CECILIA BARTON introduced to surroundings, call light, bed controls, phone, TV, temperature control, lights, meal times, smoking policy, visitor policy, side rail policy, bathrooms and showers. Patient Rights given to patient in the handbook. CECILIA BARTON verbalizes understanding that [facility] is not responsible for the loss or damage to any personal effects or valuables that are kept in the patients posession during their hospitalization. CECILIA BARTON verbalizes understanding of Interdisciplinary Patient Education. Patient and/or family were informed about the Rapid Response Team and its purpose.
[2019-07-02] MEDS ORDERED: fentaNYL INJECTION 100 MCG/2 ML AMP IVP PRN (13:45)
[2019-07-02] MEDS: CYCLOBENZAPRINE 10 MG (FLEXERIL) TAB PO PRN (14:02)
[2019-07-02] MEDS: oxyCODONE/APAP 5/325MG (PERCOCET 5) TABLET PO PRN (14:02)
--- NOTE | 2019-07-02 14:08 | NUR ---
ASSESSED PT PER MONE RN, REQUEST. PT LYING RIGHT SIDE. HE C/O OF 7/10 PAIN. ASSESSED PT SURGICAL SITE AND NOTED LEAKAGE AND EXCESSIVE BLEEDING. CALLED FOR HOME CARE MUSIC THERAPIST TO ASSIST IN REPOSITIONING. CALLED FOR MONE, AND SHE CONTACTED REGARDING PT SURGICAL SITE. WOUND VAC IS IN PLACE AND NO KINKS NOTED IN TUBING. ASSISTED PT UP AND REINFORCED AREA W ABD AND SECURED W TAPE. PT VOICED HIS APPRECIATION. MONE ADMIN OXYCODONE ORDERED. PT BEING ASSISTED BY TO EAT HIS CLEAR LIQUID MEAL.
[2019-07-02] MEDS: ceFAZolin INJECTION 1,000 MG in WATER (STERILE) FOR INJECTION 10 ML IV SCH ×2 (15:13→23:48)
--- NOTE | 2019-07-02 15:26 | Diagnostic Imaging Report ---
INDICATION: Fluoroscopy during lumbar spine surgery. FINDINGS: Fluoroscopy was provided in the OR during lumbar spine surgery. 25 seconds of fluoroscopic time was utilized. Several images were obtained demonstrating intervertebral spacers at the L3-L4 and L4-L5 levels. There appear to be bipedicular screws from L3 through L5 as well. IMPRESSION: Fluoroscopy for lumbar spine surgery. Dictated by: Dictated on workstation # [id number]
[2019-07-02] MEDS: RT-ALBUTEROL SULF 2.5 MG/3 ML PRE-MIX VIAL IH SCH ×2 (16:28→20:35)
[2019-07-02] MEDS: CARVEDILOL 3.125 MG (COREG) TABLET PO SCH (20:04)
[2019-07-02] MEDS: FAMOTIDINE 20 MG (PEPCID) TABLET PO SCH (20:04)
[2019-07-02] MEDS: RT-ADVAIR HFA 115/21 MCG PER PUFF IH SCH (20:06)
[2019-07-02] MEDS ORDERED: NON-FORMULARY MEDICATION 1 EA EA (Fluticasone/Salmeterol (Advair 250-50 Diskus) 1 EACH) IH SCH (21:00)
--- NOTE | 2019-07-02 23:49 | OPERATIVE REPORT ---
DATE OF SERVICE: 07/02/2019 SURGEON: Franko Thibodeaux DO STATISTICIAN APPLIED: QUINTON Peters. This is a medically necessary procedure. Pit Furnace Melter was necessary for retraction of vital neurovascular structures. PREOPERATIVE DIAGNOSES: 1. Lumbar spinal stenosis (foraminal, bony). 2. Neurogenic claudication. 3. Lumbar radiculopathy. POSTOPERATIVE DIAGNOSES: 1. Lumbar spinal stenosis (foraminal, bony). 2. Neurogenic claudication. 3. Lumbar radiculopathy. PROCEDURES PERFORMED: 1. L3-L4, L4-L5 direct lateral interbody lumbar fusion. 2. Application of anterior instrumentation, L3-L4. 3. Application of titanium interbody cages, L3-L4, L4-L5. 4. Application of posterior instrumentation, L3-L4, L4-L5. 5. Posterior spinal fusion L3-L4, L4-L5. 6. Bilateral laminectomy with complete facetectomies and foraminotomies, L3-L4, L4-L5. 7. Use of human Allograft for spine. 8. Use of local bone autograft. COMPLICATIONS: None. SPECIMEN SENT: None. DRAIN PLACED: Hemovac. ESTIMATED BLOOD LOSS: See anesthesia records. HISTORY OF PRESENT ILLNESS: The patient is a very pleasant 73-year-old gentleman who presented to me with severe neurogenic claudication. He had not responded to any conservative measures. He did understand the risks of surgery, but he did wish to proceed. DESCRIPTION OF PROCEDURE: The patient was identified by name on wrist band in the preoperative holding area. His operative site was signed, consent was signed. SCDs were placed. Neuro monitoring was hooked up and antibiotics were started. He was taken to the operating room theater and placed under general endotracheal tube anesthesia and then transferred to the operating room table in lateral position with the left side up. He was secured to the table with 3-inch silk tape. He was then prepped and draped in the usual sterile fashion. The formal timeout was conducted. At this point, I made a longitudinal incision over the disk spaces of L3-L4 and L4-L5. I proceeded with standard lateral retroperitoneal transpsoas approach docking a table-mounted [employer] tubular retractor at the midpoint of the L4-L5 disk space. I used EMG neuro monitoring to exclude the presence of any nerves. I then performed an annulotomy followed by complete diskectomy. I sized and chose the appropriate titanium interbody cage. I packed with human allograft and I seated it into the midline position. At this point, I turned my attention to the L3-L4 level where I repeated this process of performing an annulotomy followed by complete diskectomy. I seated the interbody in the midpoint of L3-L4. I then placed plate and screws over that interbody to prevent interbody migration, increase construct rigidity and prevent pseudoarthrosis. Those screws went through the plate into the body of L3 and through the plate into the body of L4. At this point, I irrigated the wound, maintained hemostasis and closed it in my usual layered fashion utilizing 0 Vicryl, followed by 2-0 Vicryl, followed by adrianna for skin. We applied dressings. We then placed the patient in the prone position on a radiolucent David table. We reprepped and draped the patient, made a midline incision and proceeded with bilateral subperiosteal paraspinal muscular approach exposing the L3-L4, L4-L5 posterior elements. Under lateral x-ray, we then placed pedicle screws bilaterally in L3, L4 and L5; once these were in position, I assessed their positioning with AP and lateral x-ray and EMG neuromonitoring was used to further confirm that a safe location. At this point, I used a high speed maren, Kerrison rongeurs and Le[place]ell rongeur to perform bilateral laminectomy with complete facetectomy and foraminotomies at L3-L4 and L4-L5. When I was finished, there was no further neurologic compression. This was accomplished without incident. Therefore, after the decompression, I placed a yoan on the left, a yoan on the right. I placed set screws into the tulips of L3, L4 and L5 screws. I finally tightened those set screws. At this point, I decorticated remaining posterior bony elements. I irrigated the wound thoroughly. I packed a mixture of human allograft and local bone autograft in the left and right gutter to promote posterior spinal fusion. I placed a subfascial Hemovac drain. I closed the wound utilizing 0 Vicryls followed by 2-0 Vicryls followed by adrianna for skin. We applied dressings and took the patient in the supine position to the PACU where he awoke without incident. He tolerated the procedure well. The plan at this time is to admit the patient for IV antibiotics, IV pain control and postoperative monitoring. We will plan to get him out of bed on postop day #1 with the brace on, discontinue his drain and Witt catheter per my protocol. Please note that instrumentation utilized for this was Steve for the TLIF part and NuVasive for the posterior screws. Job ID: [id number] DocumentID: [id number] Dictated Date: 07/02/2019 16:42:32 Analytical Engineer Date: 07/02/2019 23:49:01 Dictated By: FRANKO THIBODEAUX DO
[2019-07-03] VITALS (7 sets, daily range): BP systolic 95–124; BP diastolic 52–68
[2019-07-03] MEDS: oxyCODONE/APAP 5/325MG (PERCOCET 5) TABLET PO PRN (02:34)
[2019-07-03 05:55] LABS: HEMOGLOBIN 13.2 G/DL (13.3-17.7); MEAN PLATELET VOLUME 9.4 FL (7.4-10.4); RED CELL DISTRIBUTION WIDTH 13.4 % (10.0-14.5); WHITE BLOOD COUNT 17.5 10^3/uL (4.3-11.0)
--- NOTE | 2019-07-03 06:09 | Progress Note ---
Subjective Date Seen by a Provider: Jul 03, 2019 Time Seen by a Provider: 06:05 Subjective/Events-last exam POD #1, s/p L3-5 DLIF, PSDF VSS, afebrile Drain 110 No complaints at this time Review of Systems General: No Chills Pulmonary: No Cough Gastrointestinal: No: Nausea, Vomiting, Abdominal Pain Musculoskeletal: back pain; No: leg pain Neurological: No: Numbness Objective Exam Vital Signs Date Time Temp Pulse Resp B/P (MAP) Pulse Ox O2 Delivery O2 Flow Rate FiO2 07/03/19 04:00 36.2 96 20 104/52 (69) 93 Room Air 07/03/19 00:00 35.8 91 18 122/62 (82) 97 Room Air 07/02/19 20:35 92 Room Air 07/02/19 20:34 Room Air 07/02/19 20:00 Room Air 07/02/19 20:00 36.7 94 18 153/86 (108) 96 Room Air 07/02/19 16:00 35.9 93 18 112/67 (82) 93 Room Air 07/02/19 12:30 36.9 14 121/75 (90) 93 Room Air 07/02/19 12:30 Room Air 07/02/19 12:20 OxyMask 1 07/02/19 12:20 23 138/79 (98) 97 OxyMask 2 07/02/19 12:10 22 146/72 (96) 97 OxyMask 10 07/02/19 12:10 OxyMask 10 07/02/19 12:00 10 148/80 (102) 98 OxyMask 10 07/02/19 11:55 OxyMask 10 07/02/19 11:50 20 133/74 (93) 97 Ambu Bag 10 07/02/19 11:40 14 135/76 (95) 98 Ambu Bag 10 07/02/19 11:37 OxyMask 10 07/02/19 11:37 37 20 122/77 (92) 98 Ambu Bag 10 07/02/19 06:45 96 07/02/19 06:45 36.0 88 20 155/83 96 Room Air I & O 07/03/19 07:00 Intake Total 7910 ml Output Total 1985 ml Balance 5925 ml Capillary Refill : Less Than 3 SecondsLess Than 3 Seconds General Appearance: No Apparent Distress HEENT: PERRL/EOMI Neck: Non Tender Cardiovascular: Normal Peripheral Pulses Gastrointestinal: soft, other (NO Verde-Pena's ) Extremity: Non Tender, No Calf Tenderness Neurologic/Psychiatric: Alert, Oriented x3, No Motor/Sensory Deficits, Other (4/5 strength in left psoas, with hip flexion) Skin: Other (Dressing CDI) Results Lab Laboratory Tests 07/02/19 06:45: White Blood Count 11.3H, Red Blood Count 4.62, Hemoglobin 15.3, Hematocrit 45, Mean Corpuscular Volume 97, Mean Corpuscular Hemoglobin 33, Mean Corpuscular Hemoglobin Concent 34, Red Cell Distribution Width 13.4, Platelet Count 335, Mean Platelet Volume 9.3, Neutrophils (%) (Auto) 70, Lymphocytes (%) (Auto) 19, Monocytes (%) (Auto) 9, Eosinophils (%) (Auto) 2, Basophils (%) (Auto) 0, Neutrophils # (Auto) 7.9H, Lymphocytes # (Auto) 2.2, Monocytes # (Auto) 1.0, Eosinophils # (Auto) 0.2, Basophils # (Auto) 0.0 07/03/19 05:16: Assessment/Plan Assessment/Plan Assess & Plan/Chief Complaint Lumbar stenosis with radiculopathy S/P L3-5 DLIF, PSDF DC vital DC percocet, prescribe hydrocodone Ambulate Monitor drain output Prescribe Brace Clinical Quality Measures DVT/VTE Risk/Contraindication: Risk Factor Score Per Nursin RFS Level Per Nursing on Admit: 4+=Very High STACIE MATSON Jul 03, 2019 06:09
[2019-07-03 06:28] LABS: ALANINE AMINOTRANSFERASE 48 U/L (0-55); ALBUMIN 4.1 GM/DL (3.2-4.5); ALKALINE PHOSPHATASE 82 U/L (40-136); BILIRUBIN,TOTAL 0.5 MG/DL (0.1-1.0); BUN/CREATININE RATIO 11; CALCIUM 8.9 MG/DL (8.5-10.1); CARBON DIOXIDE 19 MMOL/L (21-32); CHLORIDE 101 MMOL/L (98-107); CREATININE SERUM 1.03 MG/DL (0.60-1.30); GFR ESTIMATED > 60; GLUCOSE 187 MG/DL (70-105); POTASSIUM 4.9 MMOL/L (3.6-5.0); SODIUM 132 MMOL/L (135-145)
[2019-07-03] MEDS: ceFAZolin INJECTION 1,000 MG in WATER (STERILE) FOR INJECTION 10 ML IV SCH (06:57)
[2019-07-03] MEDS: MULTIVIT W/MINERALS TAB (THERAGRAN M) PO SCH (06:57)
--- NOTE | 2019-07-03 07:01 | Anesthesia-General Post-Op ---
General Patient Condition Mental Status/LOC: Same as Preop Cardiovascular: Satisfactory Nausea/Vomiting: Absent Respiratory: Satisfactory Pain: Controlled Complications: Absent Post Op Complications Complications None Follow Up Care/Instructions Patient Instructions None needed. Anesthesia/Patient Condition Patient Condition Patient is doing well, no complaints, stable vital signs, no apparent adverse anesthesia problems. No complications reported per nursing. EVA BRAUN CRNA Jul 03, 2019 07:01
[2019-07-03] MEDS: RT-ADVAIR HFA 115/21 MCG PER PUFF IH SCH ×2 (07:16→18:14)
[2019-07-03] MEDS: RT-ALBUTEROL SULF 2.5 MG/3 ML PRE-MIX VIAL IH SCH ×4 (07:16→18:14)
[2019-07-03] MEDS: HYDROcodone/APAP 5 MG/325 MG (LORTAB) TAB PO PRN ×3 (07:29→20:21)
[2019-07-03] MEDS ORDERED: PATIENT MAY USE OWN MEDS, ALL MC SCH (07:30)
[2019-07-03] MEDS: FAMOTIDINE 20 MG (PEPCID) TABLET PO SCH ×2 (08:55→20:22)
[2019-07-03] MEDS: MONTELUKAST 10 MG (SINGULAIR) TAB PO SCH (08:55)
[2019-07-03] MEDS: LORATADINE (CLARITIN) 10 MG TAB PO SCH (08:55)
[2019-07-03] MEDS: LOSARTAN 50 MG (COZAAR) TAB PO SCH (08:56)
[2019-07-03] MEDS: CARVEDILOL 3.125 MG (COREG) TABLET PO SCH ×2 (08:56→20:25)
[2019-07-03] MEDS ORDERED: NON-FORMULARY MEDICATION 1 EA EA (Cetirizine HCl 10 MG) PO SCH (09:00)
--- NOTE | 2019-07-03 09:03 | NUR ---
Initial visit following response to call light. Pt sitting at edge of bed, stated it was not an emergency but wished to ask his nurse about pain medication because his last dose did not feel effective. He said his back was hurting. After introducing myself and telling him I would communicate with his nurse, the pt transitioned to sharing that he is Agnostic and enjoys discussing catholic and ideas with those who are peaceable and respectful. He engaged at length about his personal beliefs and experiences, and invited a return visit. He expressed appreciation for being able to openly share his values and beliefs.
--- NOTE | 2019-07-03 10:01 | Physical Therapy Evaluation ---
PT Evaluation-General Medical Diagnosis Admission Date Jul 02, 2019 at 06:21 Medical Diagnosis: Spondylisis Onset Date: Jul 02, 2019 Therapy Diagnosis Therapy Diagnosis: Debility/deconditioning Height/Weight Height (Feet): 5 Height (Inches): 10.00 Weight (Pounds): 237 Weight (Ounces): 0.0 Precautions Precautions/Isolations: Fall Prevention, Standard Precautions Weight Bear Status Right Lower Extremity: Right Full Weight Bearing Left Lower Extremity: Left Full Weight Bearing Referral Physician: Shalom Reynoso Reason for Referral: Evaluation/Treatment Medical History Pertinent Medical History: CAD, GERD, [place], Smoking (Quit 2007) Current History Lumbar fusion Reviewed History: Yes Social History Home: Single Level Current Living Status: Spouse Entry Into Home: Stairs With Railing PT Steps Into Home: 4 PT Steps Inside Home: 0 Prior Prior Level of Function SCALE: Activities may be completed with or without assistive devices. 4-Rzbkscuqsm-vweqexy completes the activity by him/herself with no assistance from a helper. 5-Set-up or Clean-up Assistance-helper sets up or cleans up; patient completes activity. [place] assists only prior to or following the activity. 4-Supervision or Touching Assistance-helper provides verbal cues and/or touching/steadying and/or contact guard assistance as patient completes activity. Assistance may be provided throughout the activity or intermittently. 3-Partial/Moderate Assistance-helper does LESS THAN HALF the effort. [place] lifts, holds or supports trunk or limbs, but provides less than half the effort. 2-Substantial/Maximal Assistance-helper does MORE THAN HALF the effort. [place] lifts or holds trunk or limbs and provides more than half the effort. 1-Omtqtspnk-arlioj does ALL the effort. Patient does none of the effort to complete the activity. Or, the assistance of 2 or more helpers is required for the patient to complete the activity. If activity was not attempted, code reason: 7-Patient Refused. 9-Not Applicable-not attempted and the patient did not perform the activity before the current illness, exacerbation or injury. 10-Not Attempted due to Environmental Limitations-(lack of equipment, weather restraints, etc.). 88-Not Attempted due to Medical Conditions or Safety Concerns. Bed Mobility: 6 Transfers (B,C,W/C): 6 Gait: 6 Stairs: 6 Indoor Mobility (Ambulation): Independent Stairs: Independent Patient has walker and quad cane but states he only used when his knee was acting up which was not often. PT Evaluation-Current Subjective Patient is agreeable to therapy. Patent states he is in 7/10 pain in his low back. Pain Numeric Pain Scale: 7 Location: Lower Location Body Site: Back Pain Description: Dull Objective Patient Orientation: Person, Place, Time, Situation ROM/Strength ROM Lower Extremities BLE WFL Strength Lower Extremities BLE WFL Integumentary/Posture Integumentary See nursing notes. Bowel Incontinence: No Bladder Incontinence: Witt Cath Sensory Vision: Wears Glasses Hearing: Functional Sensation Right Lower Extremit: Intact Sensation Left Lower Extremity: Intact Transfers Sit to Stand (QC): 4 Chair/Rwu-qb-Kbuws Xfer(QC): 4 CGA for safety Gait Does the Patient Walk?: Yes Mode of Locomotion: Walk Anticipated Mode of Locomotion: Walk Walk 10 feet (QC): 4 Distance: 15' x 2 Gait Assistive Device: FWW Wheelchair Training Does the Pt Use a Wheelchair?: No Balance Sitting Static: Normal Sitting Dynamic: Normal Standing Static: Normal Standing Dynamic: Normal Assessment/Needs Patient is slow but steady during ambulation. Patient would benefit from therapy to help patient reach his maximum LOF for when returning home. Rehab Potential: Fair PT Senior Care Goals Medical Affairs Specialist Goals PT Senior Care Goals Time Frame: Jul 07, 2019 Roll Left & Right (QC): 6 Sit to Lying (QC): 6 Lying-Sitting on Side/Bed(QC): 6 Sit to Stand (QC): 6 Chair/Aly-vl-Tltlb Xfer(QC): 6 Toilet Transfer (QC): 6 Does the Patient Walk: Yes Walk 10 feet (QC): 6 Walk 50ft with 2 Turns (QC): 6 Walk 150 ft (QC): 6 1 Step (curb) (QC): 6 4 Steps (QC): 6 Does the Pt use WC or Scooter?: No PT Plan Problem List Problem List: Activity Tolerance, Functional Strength, Safety, Balance, Gait, Transfer, Bed Mobility, ROM Treatment/Plan Treatment Plan: Continue Plan of Care Treatment Plan: Bed Mobility, Functional Strength, Gait, Safety, Therapeutic Exercise, Transfers Treatment Duration: Jul 07, 2019 Frequency: 4 times per week Estimated Hrs Per Day: .5 hour per day Patient and/or Family Agrees t: Yes Safety Risks/Education Patient Education: Gait Training, Transfer Techniques Teaching Recipient: Patient Teaching Methods: Discussion Response to Teaching: Reinforcement Needed Time/GCodes Time In: 907 Time Out: 921 Total Billed Treatment Time: 14 Total Billed Treatment 1 visit EV (14 minutes) MELISSA NI PT Jul 03, 2019 10:01
--- NOTE | 2019-07-03 10:46 | Occupational Therapy Eval ---
OT Evaluation-General/PLF Medical Diagnosis Admission Date Jul 02, 2019 at 06:21 Medical Diagnosis: Spondylisis Onset Date: Jul 02, 2019 Therapy Diagnosis Therapy Diagnosis: debility Height/Weight Height (Feet): 5 Height (Inches): 10.00 Weight (Pounds): 237 Weight (Ounces): 0.0 Precautions Precautions/Isolations: Fall Prevention, Standard Precautions Safety Interventions: None Referral Physician: Shalom Reynoso Medical History Pertinent Medical History: CAD, GERD, [place], Smoking (Quit 2007) Current History L3-5 DLIF, PSDF Social History Home: Single Level Current Living Status: Spouse Entry Into Home: Stairs With Railing Steps Into Home: 4 Steps Inside Home: 0 ADL-Prior Level of Function SCALE: Activities may be completed with or without assistive devices. 4-Wibhkqxrft-wtyomgh completes the activity by him/herself with no assistance from a helper. 5-Set-up or Clean-up Assistance-helper sets up or cleans up; patient completes activity. [place] assists only prior to or following the activity. 4-Supervision or Touching Assistance-helper provides verbal cues and/or touching/steadying and/or contact guard assistance as patient completes activity. Assistance may be provided throughout the activity or intermittently. 3-Partial/Moderate Assistance-helper does LESS THAN HALF the effort. [place] lifts, holds or supports trunk or limbs, but provides less than half the effort. 2-Substantial/Maximal Assistance-helper does MORE THAN HALF the effort. [place] lifts or holds trunk or limbs and provides more than half the effort. 8-Lebrjcbwg-pkujzt does ALL the effort. Patient does none of the effort to complete the activity. Or, the assistance of 2 or more helpers is required for the patient to complete the activity. If activity was not attempted, code reason: 7-Patient Refused. 9-Not Applicable-not attempted and the patient did not perform the activity before the current illness, exacerbation or injury. 10-Not Attempted due to Environmental Limitations-(lack of equipment, weather restraints, etc.). 88-Not Attempted due to Medical Conditions or Safety Concerns. ADL PLOF Comments Pt reports being independent prior to surgery. Pt does not use any assistive devices, but states he has a walker and quad cane if needed. Self Care: Independent DME/Equipment: Grab Bars, Shower Drive Self: Yes OT Current Status Subjective Pt sitting EOB, reports 5/10 back pain. Mental Status/Objective Patient Orientation: Person, Place, Situation Attachments: Drains, Witt Catheter Current Glasses/Contacts: Yes Upper Extremity ROM Grossly WFL Upper Extremity Coordination Intact ADL-Treatment ADL-Current Pt reports feeding self independently this morning. Pt demonstrates ability to perform sit to stand with supervision. Pt declined to practice ADLs, states will assist with ADLs at home. Education provided regarding ADL/home safety and back precautions. Pt states understanding of education, but is not interested in any adaptive equipment or ADL training as spouse will assist him. Pt has no questions or concerns and declined further OT treatment. Pt sitting EOB with needs met after session. Education OT Patient Education: Safety issues Teaching Recipient: Patient Teaching Methods: Discussion Response to Teaching: Verbalize Understanding OT Education/Plan Problem List/Assessment Pt s/p lumbar surgery. Educated pt on ADL/home safety and back precautions. Pt states understanding, but declined adaptive equipment education or further OT treatment. Pt states spouse will assist with all needs at home. Will discontinue OT services at this time per pt request. Discharge Recommendations Plan/Recommendations: Discontinue OT Treatment Plan/Plan of Care Treatment,Training & Education: No Plan of Care: OTHER Treatment Duration: Jul 03, 2019 Frequency: 1 time per week (1 visit, eval only) Estimated Hrs Per Day: Other (evaluation only) Rehab Potential: Fair Time/GCodes Start Time: 09:35 Stop Time: 09:52 Total Time Billed (hr/min): 17 Billed Treatment Time 1 visit, EVL(17minutes) PADMINI OSPINA OT Jul 03, 2019 10:46
--- NOTE | 2019-07-03 13:49 | Diagnostic Imaging Report ---
INDICATION: Lumbar spine surgery. TIME OF EXAM: 11:53 AM FINDINGS: Curvature of the lumbar spine is normal. There is minimal anterolisthesis of L4 on L5. Vertebral body heights are maintained. There are postoperative changes of posterior instrumented fusion from L3 through L5 with vertical stabilization rods and pedicle screws. There are intervertebral devices at L3-L4 and L4-L5 levels. There is also lateral left plate transfixing the L3-L4 level. Degenerative changes L1-L2 level with disc space narrowing and marginal spurring is seen. Aorta is heavily calcified. IMPRESSION: Postsurgical and degenerative changes, as described. No acute abnormality is detected. Dictated by: Dictated on workstation # [id number]
--- NOTE | 2019-07-03 14:15 | Physical Therapy Daily Note ---
PT Daily Note-Current Subjective Patient is hesitant but agreeable to therapy. Appearance Patient in recliner with bedside table and call light within reach. Mental Status Patient Orientation: Person, Place, Time, Situation Attachments: Drains, Witt Catheter Transfers SCALE: Activities may be completed with or without assistive devices. 3-Fghqhsnfcb-uizlugb completes the activity by him/herself with no assistance from a helper. 5-Set-up or Clean-up Assistance-helper sets up or cleans up; patient completes activity. [place] assists only prior to or following the activity. 4-Supervision or Touching Assistance-helper provides verbal cues and/or touching/steadying and/or contact guard assistance as patient completes activity. Assistance may be provided throughout the activity or intermittently. 3-Partial/Moderate Assistance-helper does LESS THAN HALF the effort. [place] lifts, holds or supports trunk or limbs, but provides less than half the effort. 2-Substantial/Maximal Assistance-helper does MORE THAN HALF the effort. [place] lifts or holds trunk or limbs and provides more than half the effort. 6-Cuintmsdx-fplmez does ALL the effort. Patient does none of the effort to complete the activity. Or, the assistance of 2 or more helpers is required for the patient to complete the activity. If activity was not attempted, code reason: 7-Patient Refused. 9-Not Applicable-not attempted and the patient did not perform the activity before the current illness, exacerbation or injury. 10-Not Attempted due to Environmental Limitations-(lack of equipment, weather restraints, etc.). 88-Not Attempted due to Medical Conditions or Safety Concerns. Sit to Stand (QC): 4 CGA for safety Weight Bearing Right Lower Extremity: Right Full Weight Bearing Left Lower Extremity: Left Full Weight Bearing Gait Training Does the Patient Walk?: Yes Distance: 50' Walk 10 feet (QC): 4 Walk 50 ft with 2 Turns(QC): 4 Gait Persons Needed: 1 Gait Assistive Device: FWW CGA for safety Wheelchair Training Does the Pt Use a Wheelchair?: No Assessment Patient fatigued quickly during ambulation. Once fatigued patient needed cueing to cigar packer and picker his feet because he started to drag them along. Patient moved slowly and needed frequent rest breaks. PT Alf Goals Alf Goals PT Health Information Provider Goals Time Frame: Jul 07, 2019 Roll Left & Right (QC): 6 Sit to Lying (QC): 6 Lying-Sitting on Side/Bed(QC): 6 Sit to Stand (QC): 6 Chair/Igg-yr-Jmrnk Xfer(QC): 6 Toilet Transfer (QC): 6 Does the Patient Walk: Yes Walk 10 feet (QC): 6 Walk 50ft with 2 Turns (QC): 6 Walk 150 ft (QC): 6 1 Step (curb) (QC): 6 4 Steps (QC): 6 Does the Pt use WC or Scooter?: No PT Plan Problem List Problem List: Activity Tolerance, Functional Strength, Safety, Balance, Gait, Transfer, Bed Mobility, ROM Treatment/Plan Treatment Plan: Continue Plan of Care Treatment Plan: Bed Mobility, Functional Strength, Gait, Safety, Therapeutic Exercise, Transfers Treatment Duration: Jul 07, 2019 Frequency: 11 times per week Estimated Hrs Per Day: .5 hour per day Patient and/or Family Agrees t: Yes Time/GCodes Time In: 1330 Time Out: 1343 Total Billed Treatment Time: 13 Total Billed Treatment 1 visit FA (13 minutes) MELISSA NI PT Jul 03, 2019 14:15
--- NOTE | 2019-07-03 16:01 | NUR ---
BACK BRACE AT BEDSIDE, PT AWARE OF ORDER TO WHERE WHILE UP AND TO CALL FOR HELP APPLYING BRACE.
[2019-07-04] MEDS: HYDROcodone/APAP 5 MG/325 MG (LORTAB) TAB PO PRN ×3 (00:33→09:11)
[2019-07-04 03:58] VITALS: BP 118/72
[2019-07-04] MEDS: MULTIVIT W/MINERALS TAB (THERAGRAN M) PO SCH (04:56)
[2019-07-04] MEDS: RT-ALBUTEROL SULF 2.5 MG/3 ML PRE-MIX VIAL IH SCH ×2 (06:41→10:09)
[2019-07-04] MEDS: FAMOTIDINE 20 MG (PEPCID) TABLET PO SCH (07:52)
[2019-07-04] MEDS: LORATADINE (CLARITIN) 10 MG TAB PO SCH (07:52)
[2019-07-04] MEDS: MONTELUKAST 10 MG (SINGULAIR) TAB PO SCH (07:53)
[2019-07-04 08:00] VITALS: BP 134/64
[2019-07-04] MEDS: CYCLOBENZAPRINE 10 MG (FLEXERIL) TAB PO PRN (09:11)
[2019-07-04] MEDS: LOSARTAN 50 MG (COZAAR) TAB PO SCH (09:11)
[2019-07-04] MEDS: CARVEDILOL 3.125 MG (COREG) TABLET PO SCH (09:11)
--- NOTE | 2019-07-04 09:37 | Physical Therapy Daily Note ---
PT Daily Note-Current Subjective Patient is agreeable to therapy. No complaints of pain. Appearance Patient sitting EOB with bedside table and call light within reach. Mental Status Patient Orientation: Person, Place, Time, Situation Attachments: Drains back brace Transfers SCALE: Activities may be completed with or without assistive devices. 8-Txsxthagas-urwfzkf completes the activity by him/herself with no assistance from a helper. 5-Set-up or Clean-up Assistance-helper sets up or cleans up; patient completes activity. [place] assists only prior to or following the activity. 4-Supervision or Touching Assistance-helper provides verbal cues and/or touching/steadying and/or contact guard assistance as patient completes activity. Assistance may be provided throughout the activity or intermittently. 3-Partial/Moderate Assistance-helper does LESS THAN HALF the effort. [place] lifts, holds or supports trunk or limbs, but provides less than half the effort. 2-Substantial/Maximal Assistance-helper does MORE THAN HALF the effort. [place] lifts or holds trunk or limbs and provides more than half the effort. 8-Edmzeeazk-ayiapx does ALL the effort. Patient does none of the effort to complete the activity. Or, the assistance of 2 or more helpers is required for the patient to complete the activity. If activity was not attempted, code reason: 7-Patient Refused. 9-Not Applicable-not attempted and the patient did not perform the activity before the current illness, exacerbation or injury. 10-Not Attempted due to Environmental Limitations-(lack of equipment, weather restraints, etc.). 88-Not Attempted due to Medical Conditions or Safety Concerns. Sit to Stand (QC): 4 (CGA for safety) Weight Bearing Right Lower Extremity: Right Full Weight Bearing Left Lower Extremity: Left Full Weight Bearing Gait Training Does the Patient Walk?: Yes Distance: 120' Walk 10 feet (QC): 4 Walk 50 ft with 2 Turns(QC): 4 Gait Persons Needed: 1 Gait Assistive Device: FWW CGA for safety. Tends to shuffle with fatigue. Wheelchair Training Does the Pt Use a Wheelchair?: No Treatments ambulation, transfers, toileting (SBA) Assessment Current Status: Good Progress Patient is doing better at this time and is willing to ambulate longer distances. Patient tolerated the increased distance well with no LOB. Patient ceased due to fatigue. PT Intermediate Goals Intermediate Goals PT Carpet Repairer Goals Time Frame: Jul 07, 2019 Roll Left & Right (QC): 6 Sit to Lying (QC): 6 Lying-Sitting on Side/Bed(QC): 6 Sit to Stand (QC): 6 Chair/[place] Xfer(QC): 6 Toilet Transfer (QC): 6 Does the Patient Walk: Yes Walk 10 feet (QC): 6 Walk 50ft with 2 Turns (QC): 6 Walk 150 ft (QC): 6 1 Step (curb) (QC): 6 4 Steps (QC): 6 Does the Pt use WC or Scooter?: No PT Plan Problem List Problem List: Activity Tolerance, Functional Strength, Safety, Balance, Gait, Transfer, Bed Mobility, ROM Treatment/Plan Treatment Plan: Continue Plan of Care Treatment Plan: Bed Mobility, Education, Functional Activity Melissa, Functional Strength, Gait, Safety, Therapeutic Exercise, Transfers Treatment Duration: Jul 07, 2019 Frequency: 11 times per week Estimated Hrs Per Day: .5 hour per day Patient and/or Family Agrees t: Yes Safety Risks/Education Patient Education: Gait Training, Transfer Techniques, Reviewed Don/Doff Brace Teaching Recipient: Patient Teaching Methods: Demonstration, Discussion Response to Teaching: Reinforcement Needed Time/GCodes Time In: 830 Time Out: 843 Total Billed Treatment Time: 13 Total Billed Treatment 1 visit FA (13 minutes) RHONDA STEPHENS PT Jul 04, 2019 09:37
[2019-07-04] MEDS: RT-ADVAIR HFA 115/21 MCG PER PUFF IH SCH (10:09)
[2019-07-04] MEDS ORDERED: RT-ALBUTEROL SULF 2.5 MG/3 ML PRE-MIX VIAL INH PRN (10:30)
--- NOTE | 2019-07-04 11:01 | Physical Therapy Daily Note ---
PT Daily Note-Current Subjective Patient agreeable to therapy and that he wants to move from bed to recliner because he is not comfortable in bed. Once in recliner patient reports no pain. Appearance Patient in recliner with bedside table and call light within reach. Mental Status Patient Orientation: Person, Place, Time, Situation Attachments: Drains, Other-See Comments Back brace Transfers SCALE: Activities may be completed with or without assistive devices. 0-Tyxmtsveth-qsbbkre completes the activity by him/herself with no assistance from a helper. 5-Set-up or Clean-up Assistance-helper sets up or cleans up; patient completes activity. [place] assists only prior to or following the activity. 4-Supervision or Touching Assistance-helper provides verbal cues and/or touching/steadying and/or contact guard assistance as patient completes activity. Assistance may be provided throughout the activity or intermittently. 3-Partial/Moderate Assistance-helper does LESS THAN HALF the effort. [place] lifts, holds or supports trunk or limbs, but provides less than half the effort. 2-Substantial/Maximal Assistance-helper does MORE THAN HALF the effort. [place] lifts or holds trunk or limbs and provides more than half the effort. 0-Epncuunbf-wsldti does ALL the effort. Patient does none of the effort to complete the activity. Or, the assistance of 2 or more helpers is required for the patient to complete the activity. If activity was not attempted, code reason: 7-Patient Refused. 9-Not Applicable-not attempted and the patient did not perform the activity before the current illness, exacerbation or injury. 10-Not Attempted due to Environmental Limitations-(lack of equipment, weather restraints, etc.). 88-Not Attempted due to Medical Conditions or Safety Concerns. Sit to Stand (QC): 3 Chair/Xkf-bm-Dcfaa Xfer(QC): 4 (CGA for safety) Weight Bearing Right Lower Extremity: Right Full Weight Bearing Left Lower Extremity: Left Full Weight Bearing Gait Training Distance: 20' Gait Persons Needed: 1 Gait Assistive Device: FWW Patient ambulated within room. Patient shuffled his feet during ambulation. Wheelchair Training Does the Pt Use a Wheelchair?: No Exercises Seated Therapy Exercises: Ankle pumps, Long arc quads, Hip flexion, Glut set Seated Reps: 10 Treatments Ambulation. Transfers. Exercises. Assessment Current Status: Fair Progress Patient tends to shuffle his feet when he is fatigued. Patient had limited ROM with his left leg during exercise, he states that leg feels weaker following surgery. PT Injury Prevention Coordinator Goals Injury Prevention Coordinator Goals PT Injury Prevention Coordinator Goals Time Frame: Jul 07, 2019 Roll Left & Right (QC): 6 Sit to Lying (QC): 6 Lying-Sitting on Side/Bed(QC): 6 Sit to Stand (QC): 6 Chair/Csl-fn-Cchfc Xfer(QC): 6 Toilet Transfer (QC): 6 Does the Patient Walk: Yes Walk 10 feet (QC): 6 Walk 50ft with 2 Turns (QC): 6 Walk 150 ft (QC): 6 1 Step (curb) (QC): 6 4 Steps (QC): 6 Does the Pt use WC or Scooter?: No PT Plan Problem List Problem List: Activity Tolerance, Functional Strength, Safety, Balance, Gait, Transfer, Bed Mobility, ROM Treatment/Plan Treatment Plan: Continue Plan of Care Treatment Plan: Bed Mobility, Education, Functional Activity Melissa, Functional Strength, Gait, Safety, Therapeutic Exercise, Transfers Treatment Duration: Jul 07, 2019 Frequency: 11 times per week Estimated Hrs Per Day: .5 hour per day Patient and/or Family Agrees t: Yes Safety Risks/Education Patient Education: Gait Training, Transfer Techniques, Reviewed Don/Doff Brace, Safety Issues Teaching Recipient: Patient Teaching Methods: Discussion Response to Teaching: Reinforcement Needed Time/GCodes Time In: 1000 Time Out: 1011 Total Billed Treatment Time: 11 Total Billed Treatment 1 visit EX (11 minutes) RHONDA STEPHENS PT Jul 04, 2019 11:00
[2019-07-04 12:00] VITALS: BP 101/51
--- NOTE | 2019-07-04 14:15 | NUR ---
IRF Evaluation Order received to evaluate patient for the ARU. Chart reviewed and findings discussed with Dr. Yung - patient accepted for admission. Met with patient to discuss details in regards to inpatient rehab program. Patient is indifferent and would like to discuss with his spouse. Patient states he does not like the idea of staying in the hospital longer as it requires his to make trips from [place]. It was decided this entry writer would follow-up with patient, tomorrow. CM/SS notified. Thank you for this referral.
[2019-07-04 15:35] VITALS: BP 109/66
--- NOTE | 2019-07-04 15:44 | Discharge Summary ---
Diagnosis/Chief Complaint Date of Admission Jul 02, 2019 at 06:21 Date of Discharge 07/04/2019 Discharge Date: Jul 04, 2019 Discharge Time: 15:42 Admission Diagnosis Admission Diagnosis stenosis Discharge Diagnosis same Reason Hospital Visit lumbar spinal stenosis Discharge Summary Procedures: DLIF/PSF/laminectomy Discharge Physical Examination Allergies: Coded Allergies: No Known Drug Allergies (Unverified , 08/13/16) Vitals & I&Os Vital Signs Date Time Temp Pulse Resp B/P (MAP) Pulse Ox O2 Delivery O2 Flow Rate FiO2 07/04/19 12:00 35.9 83 16 101/51 (68) 95 Room Air 07/04/19 09:00 1.00 General Appearance: Alert, Oriented X3, No Acute Distress Cardiovascular: Regular Rate Abdominal: Normal Bowel Sounds Extremities: No Clubbing, No Cyanosis, Other (4/5 left hip flexion weakness) Skin: No Rashes Neuro: Normal Gait Hospital Course Admitted to hospital and underwent DLIF/PSF procedure wo complication. Tolerated well and post op course was uncomplicated. Was stable for d/c home on POD 2. Discharge Instructions to patient/family Please see electronic discharge instructions given to patient. Discharge Medications Reviewed and agree with Discharge Medication list on patient's Discharge Instruction sheet Clinical Quality Measures DVT/VTE Risk/Contraindication: Risk Factor Score Per Nursin RFS Level Per Nursing on Admit: 4+=Very High THEA SWANSON DO Jul 04, 2019 15:44
[2019-07-04] MEDS ORDERED: ACHD5005 PO (15:48)
[2019-07-04 16:05] VITALS: BP 101/51
--- NOTE | 2019-07-04 16:11 | NUR ---
CM/SS visited with patient per patients nurse request. The patient was being evaluated for inpatient rehab and has stated he does not want to go there. CM/SS discussed Home Health with the patient who stated he is unwilling to have those services at this time and he will talk with his dr at the next appointment. CM/SS discussed house/fall safety. Patient states his works one block away and will check on him but he refuses to carry his cell phone on his if he needs to call he will use cordless house phone. No life alert. The patient verbalized that he feels he will be able to use things in the house to hold on a walk with. Patient has his own walker and other medical equipment. Patient is being transported home from the hospital by his this evening.
[2019-07-04 17:20] VITALS: BP 101/51
--- NOTE | 2019-07-04 17:34 | NUR ---
DRESSING CHANGED TO MEDIAL BACK PRIOR TO DISCHARGE FOR HOME. HEMOVAC DRAIN PULLED PER DR. PEREZ ORDERS. DISCHARGE REVIEWED WITH THIS PATIENT AT THIS TIME. THIS RN WILL CONT TO MONITOR THIS PATIENT UNTIL DISCHARGE LATER THIS EVENING.
[2019-07-05] MEDS ORDERED: HYDR-3812 PO (05:36)
[2019-07-05] MEDS ORDERED: DIPH25CA79 PO (11:09)
[2019-07-05] MEDS ORDERED: IBUP-30 PO (11:09)
[2019-07-05] MEDS ORDERED: FAMO20TA5 PO (11:09)
[2019-07-05] MEDS ORDERED: ASPI-983 PO (11:09)
[2019-07-05] MEDS ORDERED: RT-ALBUINH INH (11:09)
[2019-07-05] MEDS ORDERED: ACET-2267 PO (11:09)
== END 2019-07-04 18:05 | disposition home or self-care (01) | DRG 455 ==
LOC: 4TH 06:21 → SURG 06:22 → 4TH 12:40
PROVIDERS: ADMIT Orthopaedic Surgery; ATTEND Orthopaedic Surgery
PROC: 0SG10K1 Fusion of 2 or more Lumbar Vertebral Joints with Nonautologous Tissue Substitute, Posterior Approach, Posterior Column, Open Approach (ICD-10-PCS; 2019-07-02)
PROC: 0ST20ZZ Resection of Lumbar Vertebral Disc, Open Approach (ICD-10-PCS; 2019-07-02)
PROC: 0SG10A0 Fusion of 2 or more Lumbar Vertebral Joints with Interbody Fusion Device, Anterior Approach, Anterior Column, Open Approach (ICD-10-PCS; principal; 2019-07-02 07:30)
DX: M48.062 Spinal stenosis, lumbar region with neurogenic claudication (principal); M54.16 Radiculopathy, lumbar region; I25.10 Atherosclerotic heart disease of native coronary artery without angina pectoris; G47.33 Obstructive sleep apnea (adult) (pediatric); J44.9 Chronic obstructive pulmonary disease, unspecified; K21.9 Gastro-esophageal reflux disease without esophagitis; E66.9 Obesity, unspecified; Z68.37 Body mass index [BMI] 37.0-37.9, adult; Z95.5 Presence of coronary angioplasty implant and graft; Z87.891 Personal history of nicotine dependence
CPT/HCPCS: 36415; 72100; 80053; 85025; 85027; 86850; 86900; 86901; 94640; 94664; 94760

== ENCOUNTER 2019-07-05 05:31 | Emergency (ER) | payer MEDICARE, OTHER ==
[~2019-07-05] VITALS: Ht 175 cm; Wt 113.6 kg
[2019-07-05] MEDS ORDERED: HYDR-3812 PO (05:36)
[2019-07-05] MEDS ORDERED: NS IV 1000 ML 1,000 ML IV SCH (05:41)
[2019-07-05] MEDS ORDERED: KETOROLAC 30 MG/ML VIAL IVP ONE (05:45)
[2019-07-05] MEDS ORDERED: RT-ALBUTEROL/IPRATROPIUM 3 ML (DUONEB) VIAL INH ONE (05:45)
[2019-07-05] MEDS ORDERED: CEFEPIME INJECTION 1,000 MG in WATER (STERILE) FOR INJECTION 10 ML IV ONE (05:45)
[2019-07-05] MEDS ORDERED: VANCOMYCIN INJECTION 1,000 MG in NS (IVPB) 250 ML IV ONE (05:45)
--- NOTE | 2019-07-05 05:48 | ED General ---
General Chief Complaint: General Problems/Pain Stated Complaint: WEAKNESS Nursing Triage Note: brought in by [facility] for c/o generalized weakness. reports dc'd from hospital 07/04/2019 s/p back sx. Nursing Sepsis Screen: No Definite Risk Source of Information: Patient Exam Limitations: No Limitations (SAVANNA HORTA) History of Present Illness Date Seen by Provider: Jul 05, 2019 Time Seen by Provider: 05:33 Initial Comments Patient presents to ER by EMS from home with chief complaint that he fell while getting out of bed onto his front not striking his head nor lose consciousness but because he's been debilitated he had to have his call EMS and fire to get him back up. He had surgery by Dr. Thibodeaux on his back for fusion of his lumbar spine on Tuesday, 4 days ago and was released from the hospital yesterday. He feels that it was too soon. He denies fever chills cough shortness of breath wheezing, nausea but he did have some nausea yesterday. He has a history of COPD and quit smoking over 10 years ago. He denies any history of heart or kidney disease. He's not on blood thinners. He does take a daily baby aspirin. He is not having any new pains anywhere and says the pain in his back is still about a 5-6 out of 10. He says he is on unknown strength of oxycodone's and those worked very well. He took some tramadol yesterday and that did not help. He has not had any NSAIDs in the past 24 hours but he does routinely take him for his back. He denies any loss of control of bowel or bladder, numbness or tingling. He does endorse some stinging with urination yesterday but not today. (SAVANNA HORTA) Allergies and Home Medications Allergies Coded Allergies: No Known Drug Allergies (Unverified , 08/13/16) Home Medications Albuterol Sulfate 1 Puff Puff, 2 PUFF IH QID, (Reported) 1 PUFF = 90 MCG Atorvastatin Calcium 40 Mg Tablet, 40 MG PO DAILY, (Reported) Carvedilol 3.125 Mg Tablet, 3.125 MG PO BID, (Reported) Cetirizine HCl 10 Mg Tablet, 10 MG PO DAILY, (Reported) Fluticasone/Salmeterol 1 Each Blst.w.dev, 1 EACH IH BID, (Reported) Ipratropium [place] 30 Ml [place], 2 SPRAYS NS QID PRN for CONGESTION, (Reported) Losartan Potassium 50 Mg Tablet, 50 MG PO DAILY, (Reported) Montelukast Sodium 10 Mg Tablet, 10 MG PO DAILY, (Reported) Patient Home Medication List Home Medication List Reviewed: Yes (SAVANNA HORTA) Review of Systems Review of Systems Constitutional: No chills, No fever, No malaise; weakness EENTM: No ear discharge, No ear pain Respiratory: No cough, No short of breath, No wheezing Cardiovascular: No chest pain, No Hx of Intervention Gastrointestinal: No abdominal pain; nausea (yesterday); No vomiting Genitourinary: No discharge, No dysuria Musculoskeletal: back pain; No joint pain Skin: No change in color, No dryness, No pruritus, No rash Psychiatric/Neurological: Denies Headache, Denies Numbness, Denies Paresthesia; Weakness (all over) (SAVANNA HORTA) Past [facility]-Ucclch-Lgdpmw Hx Patient Social History Alcohol Use: Denies Use Recreational Drug Use: No Smoking Status: Former Smoker Type Used: Cigarettes Former Smoker, Quit: Jun 25, 2008 2nd Hand Smoke Exposure: No Recent Foreign Travel: No Contact w/Someone Who Travel: No Recent Infectious Disease Expo: No Recent Hopitalizations: No Physical Abuse: No Sexual Abuse: No Mistreated: No Fear: No (SAVANNA HORTA) Immunizations Up To Date Tetanus Booster (TDap): More than 5yrs Date of Pneumonia Vaccine: Mar 15, 2016 Date of Influenza Vaccine: Apr 13, 2017 (SAVANNA HORTA) Seasonal Allergies Seasonal Allergies: Yes (SAVANNA HORTA) Past Medical History Surgeries: Yes (cysts removed thumb/scapula, CAROTID ARTERY,back) Appendectomy, Coronary Stent Respiratory: Yes (USES BIPAP, GETS SOB WITH EXERCISE) Sleep Apnea, COPD Currently Using CPAP: No Currently Using BIPAP: No Cardiac: Yes (STENTS X2) Coronary Artery Disease, Heart Attack, High Cholesterol Neurological: No Reproductive Disorders: No Sexually Transmitted Disease: No HIV/AIDS: No Genitourinary: No Gastrointestinal: Yes (REFLUX RARELY, OCCASIONAL CONSTIPATION) Gastroesophageal Reflux Musculoskeletal: Yes (Closed reductions) Chronic Back Pain, Fractures Endocrine: No HEENT: Yes (glasses - near sighted, DENTURES) Loss of Vision: Denies Hearing Impairment: Denies Cancer: No Did You Recieve Any Treatments: No Psychosocial: No 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 0.0oz. [id number]; 37.00 BMI Method:Stated General Appearance: Mild Distress, Obese Eyes: Bilateral Eye Normal Inspection, Bilateral Eye PERRL, Bilateral Eye EOMI HEENT: PERRL/EOMI, TMs Normal, Normal ENT Inspection, Pharynx Normal, Moist Mucous Membranes Neck: Full Range of Motion, Normal Inspection, Non Tender, Supple Respiratory: Chest Non Tender, No Accessory Muscle Use, No Respiratory Distress, Wheezing (scant expiratory right more than left) Cardiovascular: Regular Rate, Rhythm, No Edema Gastrointestinal: Normal Bowel Sounds, Non Tender, Soft Back: Other (well approximated, clean dry and surgical incision with adrianna and no erythema, induration, fluctuance or) Extremity: Normal Capillary Refill, Normal Inspection, Normal Range of Motion, Non Tender, No Calf Tenderness, No Pedal Edema Neurologic/Psychiatric: Alert, Oriented x3, No Motor/Sensory Deficits, Normal Mood/Affect, metal products viewer II-XII Norm as Tested Skin: normal color, warm/dry (SAVANNA HORTA) Focused Exam Lactate Level 07/05/19 05:47: Lactic Acid Level 2.47*H 07/05/19 07:58: (RUSSELL MORRIS MD) Lactic Acid Level Laboratory Tests Test 07/05/19 05:47 07/05/19 07:58 Lactic Acid Level 2.47 MMOL/L (0.50-2.00) *H (RUSSELL MORRIS MD) Progress/Results/Core Measures Suspected Sepsis Recent Fever Within 48 Hours: No Infection Criteria Present: Suspected New Infection New/Unexplained Altered Menta: No Sepsis Screen: No Definite Risk SIRS Temperature: Pulse: 94 Respiratory Rate: 18 Blood Pressure 144 /65 Mean: 91 (SAVANNA HORTA) Results/Orders Lab Results Laboratory Tests Test 07/05/19 05:47 07/05/19 06:01 07/05/19 07:18 07/05/19 07:58 Range/Units White Blood Count 14.6 H 4.3-11.0 10^3/uL Red Blood Count 3.69 L 4.35-5.85 10^6/uL Hemoglobin 12.1 L 13.3-17.7 G/DL Hematocrit 35 L 40-54 % Mean Corpuscular Volume 95 80-99 FL Mean Corpuscular Hemoglobin 33 25-34 PG Mean Corpuscular Hemoglobin Concent 35 32-36 G/DL Red Cell Distribution Width 13.4 10.0-14.5 % Platelet Count 306 130-400 10^3/uL Mean Platelet Volume 9.2 7.4-10.4 FL Neutrophils (%) (Auto) 78 H 42-75 % Lymphocytes (%) (Auto) 9 L 12-44 % Monocytes (%) (Auto) 13 H 0-12 % Eosinophils (%) (Auto) 0 0-10 % Basophils (%) (Auto) 0 0-10 % Neutrophils # (Auto) 11.4 H 1.8-7.8 X 10^3 Lymphocytes # (Auto) 1.3 1.0-4.0 X 10^3 Monocytes # (Auto) 1.9 H 0.0-1.0 X 10^3 Eosinophils # (Auto) 0.1 0.0-0.3 10^3/uL Basophils # (Auto) 0.0 0.0-0.1 10^3/uL Neutrophils % (Manual) 81 % Lymphocytes % (Manual) 7 % Monocytes % (Manual) 9 % Eosinophils % (Manual) 0 % Basophils % (Manual) 0 % Band Neutrophils 1 % Reactive Lymphocytes 2 % Blood Morphology Comment NORMAL Prothrombin Time 14.0 12.2-14.7 SEC INR Comment 1.0 0.8-1.4 Activated Partial Thromboplast Time 51 H 24-35 SEC Sodium Level 131 L 135-145 MMOL/L Potassium Level 3.7 3.6-5.0 MMOL/L Chloride Level 97 L 98-107 MMOL/L Carbon Dioxide Level 22 21-32 MMOL/L Anion Gap 12 5-14 MMOL/L Blood Urea Nitrogen 13 7-18 MG/DL Creatinine 0.94 0.60-1.30 MG/DL Estimat Glomerular Filtration Rate > 60 BUN/Creatinine Ratio 14 Glucose Level 151 H 70-105 MG/DL Lactic Acid Level 2.47 *H 0.50-2.00 MMOL/L Calcium Level 9.2 8.5-10.1 MG/DL Corrected Calcium 9.4 8.5-10.1 MG/DL Total Bilirubin 0.8 0.1-1.0 MG/DL Aspartate Amino Transf (AST/SGOT) 30 5-34 U/L Alanine Aminotransferase (ALT/SGPT) 27 0-55 U/L Alkaline Phosphatase 66 40-136 U/L Total Protein 6.7 6.4-8.2 GM/DL Albumin 3.8 3.2-4.5 GM/DL Blood Gas Puncture Site L WRIST Blood Gas Patient Temperature 38.6 Arterial Blood pH 7.47 H 7.37-7.43 Arterial Blood Partial Pressure CO2 32 L 35-45 MMHG Arterial Blood Partial Pressure O2 127 H 79-93 MMHG Arterial Blood HCO3 23 23-27 MMOL/L Arterial Blood Total CO2 23.7 21.0-31.0 MMOL/L Arterial Blood Oxygen Saturation 99 94-100 % Arterial Blood Base Excess -0.1 -2.5-2.5 MMOL/L Festus Test YES-POS Blood Gas Ventilator Setting NO Blood Gas Inspired Oxygen UNKNOWN Urine Color YELLOW Urine Clarity CLEAR Urine pH 6.5 5-9 Urine Specific [place] 1.020 1.016-1.022 Urine Protein 1+ H NEGATIVE Urine Glucose (UA) NEGATIVE NEGATIVE Urine Ketones NEGATIVE NEGATIVE Urine Nitrite NEGATIVE NEGATIVE Urine Bilirubin NEGATIVE NEGATIVE Urine Urobilinogen 0.2 < = 1.0 MG/DL Urine Leukocyte Esterase NEGATIVE NEGATIVE Urine RBC (Auto) 1+ H NEGATIVE Urine RBC 2-5 H /HPF Urine WBC NONE /HPF Urine Squamous Epithelial Cells NONE /HPF Urine Crystals NONE /LPF Urine Bacteria NEGATIVE /HPF Urine Casts NONE /LPF Urine Mucus NEGATIVE /LPF Urine Other RARE SPERM /HPF Urine Culture Indicated NO (RUSSELL MORRIS MD) Micro Results Microbiology 07/05/19 Influenza Types A,B Antigen (KAROLYN) - Final, Complete (RUSSELL MORRIS MD) Medications Given in ED Current Medications Medications Dose Ordered Sig/Ana Cristina Route Start Time Stop Time Status Last Admin Dose Admin Albuterol/ Ipratropium 3 ml ONCE ONCE INH 07/05/19 05:45 07/05/19 05:46 DC 07/05/19 06:18 3 ML Cefepime HCl 1000 mg/Sterile Water 10 ml @ 200 mls/hr ONCE ONCE IV 07/05/19 05:45 07/05/19 05:47 DC 07/05/19 06:10 200 MLS/HR Ketorolac Tromethamine 30 mg ONCE ONCE IVP 07/05/19 05:45 07/05/19 05:46 DC 07/05/19 05:58 30 MG Vancomycin HCl 1000 mg/Sodium Chloride 250 ml @ 250 mls/hr ONCE ONCE IV 07/05/19 05:45 07/05/19 06:44 DC 07/05/19 06:12 250 MLS/HR (RUSSELL MORRIS MD) Vital Signs/I&O 07/05/19 07/05/19 07/05/19 05:33 05:58 06:19 Temp 38.3 38.3 Pulse 94 Resp 18 B/P (MAP) 144/65 (91) Pulse Ox 93 94 O2 Delivery Room Air Room Air (RUSSELL MORRIS MD) Vital Signs/I&O Capillary Refill : Less Than 3 Seconds (SAVANNA HORTA) Blood Pressure Mean: 91 Progress Note : Time: 05:52 Progress Note Plan to get a CT of the lumbar spine as well as the C-spine and head rule out traumatic injury. He is febrile and has a heart rate in the 90s so we'll do a septic workup thinking about possible respiratory since he has some wheezes and history of COPD versus UTI given his recent surgery. Influenza swab. 4 days out its unlikely to be related to anesthesia. Toradol for his pain and fever. (SAVANNA HORTA) Progress Note : Progress Note 0615: Assumed care of the patient pending CT and x-ray. Monitor patient. 0700: Back from CT. Films reviewed for the chest x-ray revealed you have concerns about right lower lobe pneumonia. He does have elevated lactic acid as well as elevated white count. I have reexamined the patient. Wound on his back looks clean, dry and intact. He is moving all extremities. He still feels weak. He is currently receiving a cefepime and vancomycin ordered by Dr. Horta. Pending CT scan results. Patient will need admission as he is quite weak overall and would appear to have pneumonia. Patient agrees to the plan. 0835: CT of lumbar spine was delayed for the read that we have results now. I did discuss the case with Dr. Marquis. I do have concerns about possible bibasilar pneumonia and patient will need treatment for that given his presenting symptoms. He does have fever, hypoxia, elevated lactic acid and increasing weakness with shortness of breath. I do believe this is related to pneumonia. We will treat as such. Case was discussed discussed and Dr. Marquis agrees. Does have findings of sepsis without septic shock and does not require high-volume fluid resuscitation. Admit, inpatient status. Patient agrees with plan. She also agrees that he will be okay with rehabilitation given his weakness after the surgery and understands that he would not be successful home. 0850: Patient will be evaluated for rehabilitation. I did discuss this with the patient who was initially resistant. He is very worried about his . On further discussion especially in discussing his current disability, patient is in agreement. He states that he knows it's when he has to do. He will do rehabilitation if we can get him in there. (RUSSELL MORRIS MD) Diagnostic Imaging Diagonstic Imaging: Xray Plain Films/CT/US/NM/MRI: chest (1v) Reviewed: Reviewed by Me Diagonstic Imaging: CT (without IV contrast) Plain Films/CT/US/NM/MRI: c-spine, head Reviewed: Reviewed [place] Study, Reviewed by Me Diagonstic Imaging: CT Plain Films/CT/US/NM/MRI: other (lumbar spine) Reviewed: Reviewed [place] Study, Reviewed by Me (SAVANNA HORTA) Comments [facility] [place], [place] NAME: CECILIA BARTON [facility] REC#: [id number] PT STATUS: REG ER : 1945 PHYSICIAN: SAVANNA HORTA MD ADMIT DATE: 07/05/19/ER Signed Date of Exam:07/05/19 CT HEAD/CERVICAL SPINE WO PROCEDURE: CT head and CT cervical spine without contrast. TECHNIQUE: Multiple contiguous axial images were obtained through the brain and cervical spine without the use of intravenous contrast. Sagittal and coronal reformations through the cervical spine were then performed. Auto Exposure Controls were utilized during the CT exam to meet ALARA standards for radiation dose reduction. INDICATION: Generalized weakness. Fall. Neck pain. Scalp contusion. COMPARISON: None. FINDINGS: CT head: No large acute territorial ischemia, mass, or hemorrhage. Chronic microvascular disease is seen in the periventricular and subcortical white matter. The ventricles and cortical sulci are prominent, consistent with generalized volume loss. The basilar cisterns are patent and unremarkable. The calvarium is intact. The visualized paranasal sinuses are clear. CT cervical spine: No acute fracture or dislocation is seen in the cervical spine. No focal osseous lesions. Vertebral body heights are well-maintained. The craniocervical junction is well-maintained. Moderate degenerative changes are seen in the cervical spine with disc osteophyte complexes and uncovertebral arthropathy. Soft tissues of the neck are unremarkable. IMPRESSION: 1. No hemorrhage or focal intra-axial mass. No CT evidence of large acute territorial ischemia. 2. No acute fracture or dislocation in the cervical spine. 3. Chronic microvascular disease with generalized parenchymal volume loss. Dictated by: Dictated on workstation # [id number] Dict: 07/05/19 0654 Trans: 07/05/19 0656 [facility] [id number] Interpreted by: SARABJIT QUINTANILLA DO Electronically signed by: SARABJIT QUINTANILLA DO 07/05/19 0656 Comments NAME: CECILIA BARTON [facility] REC#: [id number] PT STATUS: REG ER : 1945 PHYSICIAN: SAVANNA HORTA MD ADMIT DATE: 07/05/19/ER Draft Date of Exam:07/05/19 CT LUMBAR SPINE WO PROCEDURE: CT lumbar spine without contrast. TECHNIQUE: Multiple contiguous axial images were obtained through the lumbar spine without the use of intravenous contrast. Sagittal and coronal reformations were then performed. Auto Exposure Controls were utilized during the CT exam to meet ALARA standards for radiation dose reduction. INDICATION: Weakness and fall. No priors. There is severe degenerative changes to the discs, endplates and facets throughout the visualized lumbar spine. There has been presumed recent posterior and interbody lumbar fusion L3-L5 with bipedicular screws and vertical rods and interbody devices in good position. There is laminectomy at L3 and L4. There is some air and fluid distortion in the operative bed as well as a small amount of gas dissecting along the visualized left retroperitoneum and body wall as in expected recent postoperative finding. Fluid and air within the laminectomy bed is noted also as an expected finding. The hardware appears in good position. Bony alignment is anatomic. The vertebral statures are within normal limits. Left lateral fusion. There does appear to be bony encroachment upon the right neural foramen at the L3-L4 level owing to endplate osteophytes. The left foramen widely patent. At L4-L5 there is at least mild biforaminal bony stenosis owing to facet arthrosis and endplate osteophytes. No visualized high-grade osseous canal stenosis. IMPRESSION: Interval multilevel posterior interbody and left lateral fusion with L3-L4 decompressive laminectomies. There are expected findings of dissecting soft tissue gas as well as fluid and edema within the operative laminectomy bed. [id number] multilevel bony foraminal encroachments with no high-grade osseous canal narrowing. Normal alignment. No bony destructive process. Dictated on workstation # [id number] Dict: 07/05/19 0652 Trans: 07/05/19 0828 [facility] [id number] Interpreted by: ESSIE JAMES Electronically signed by: (RUSSELL MORRIS MD) Departure Communication (Admissions) Time/Spoke to Admitting Phy: 08:35 (RUSSELL MORRIS MD) Impression Primary Impression: Pneumonia of both lower lobes Qualified Codes: J18.1 - Lobar pneumonia, unspecified organism Additional Impression: Status post lumbar spinal fusion Disposition: ADMITTED INPATIENT Condition: Stable Admissions Decision to Admit Reason: Admit from ER (General) Decision to Admit/Date: Jul 05, 2019 Time/Decision to Admit Time: 08:48 (RUSSELL MORRIS MD) Departure-Patient Inst. Referrals: FABY CR MD (PCP/Family) Primary Care Physician SAVANNA HORTA Jul 05, 2019 05:47 RUSSELL MORRIS MD Jul 05, 2019 07:04
[2019-07-05 05:58] LABS: BASOPHILS % (AUTO) 0 % (0-10); EOSINOPHILS # (AUTO) 0.1 10^3/uL (0.0-0.3); EOSINOPHILS % (AUTO) 0 % (0-10); HEMATOCRIT 35 % (40-54); HEMOGLOBIN 12.1 G/DL (13.3-17.7); LYMPHOCYTES # (AUTO) 1.3 X 10^3 (1.0-4.0); LYMPHOCYTES % (AUTO) 9 % (12-44); MEAN CORPUSCULAR HEMOGLOBIN 33 PG (25-34); MEAN CORPUSCULAR HGB CONC 35 G/DL (32-36); MEAN CORPUSCULAR VOLUME 95 FL (80-99); MEAN PLATELET VOLUME 9.2 FL (7.4-10.4); MONOCYTES # (AUTO) 1.9 X 10^3 (0.0-1.0); MONOCYTES % (AUTO) 13 % (0-12); NEUTROPHILS # (AUTO) 11.4 X 10^3 (1.8-7.8); NEUTROPHILS % (AUTO) 78 % (42-75); PLATELET COUNT 306 10^3/uL (130-400); RED CELL DISTRIBUTION WIDTH 13.4 % (10.0-14.5); WHITE BLOOD COUNT 14.6 10^3/uL (4.3-11.0)
[2019-07-05 06:05] LABS: ABG BASE EXCESS -0.1 MMOL/L (-2.5-2.5); ABG OXYGEN SATURATION 99 % (94-100); ABG PCO2 32 MMHG (35-45); ABG PH 7.47 (7.37-7.43); ABG PO2 127 MMHG (79-93); ABG TCO2 23.7 MMOL/L (21.0-31.0)
[2019-07-05 06:09] LABS: ALLENS TEST YES-POS; PATIENT TEMP 38.6; VENTILATOR NO
[2019-07-05 06:14] LABS: BAND NEUTROPHILS 1 %; BASOPHILS % (MANUAL) 0 %; EOSINOPHILS % (MANUAL) 0 %; LYMPHOCYTES % (MANUAL) 7 %; MONOCYTES % (MANUAL) 9 %; NEUTROPHILS % (MANUAL) 81 %; RBC MORPH NORMAL; REACTIVE LYMPHOCYTES 2 %
[2019-07-05 06:18] LABS: ALANINE AMINOTRANSFERASE 27 U/L (0-55); ALBUMIN 3.8 GM/DL (3.2-4.5); ALKALINE PHOSPHATASE 66 U/L (40-136); BILIRUBIN,TOTAL 0.8 MG/DL (0.1-1.0); BUN/CREATININE RATIO 14; CALCIUM 9.2 MG/DL (8.5-10.1); CARBON DIOXIDE 22 MMOL/L (21-32); CHLORIDE 97 MMOL/L (98-107); CREATININE SERUM 0.94 MG/DL (0.60-1.30); GFR ESTIMATED > 60; GLUCOSE 151 MG/DL (70-105); POTASSIUM 3.7 MMOL/L (3.6-5.0); SODIUM 131 MMOL/L (135-145); TOTAL PROTEIN 6.7 GM/DL (6.4-8.2)
--- NOTE | 2019-07-05 06:58 | Diagnostic Imaging Report ---
PROCEDURE: CT head and CT cervical spine without contrast. TECHNIQUE: Multiple contiguous axial images were obtained through the brain and cervical spine without the use of intravenous contrast. Sagittal and coronal reformations through the cervical spine were then performed. Auto Exposure Controls were utilized during the CT exam to meet ALARA standards for radiation dose reduction. INDICATION: Generalized weakness. Fall. Neck pain. Scalp contusion. COMPARISON: None. FINDINGS: CT head: No large acute territorial ischemia, mass, or hemorrhage. Chronic microvascular disease is seen in the periventricular and subcortical white matter. The ventricles and cortical sulci are prominent, consistent with generalized volume loss. The basilar cisterns are patent and unremarkable. The calvarium is intact. The visualized paranasal sinuses are clear. CT cervical spine: No acute fracture or dislocation is seen in the cervical spine. No focal osseous lesions. Vertebral body heights are well-maintained. The craniocervical junction is well-maintained. Moderate degenerative changes are seen in the cervical spine with disc osteophyte complexes and uncovertebral arthropathy. Soft tissues of the neck are unremarkable. IMPRESSION: 1. No hemorrhage or focal intra-axial mass. No CT evidence of large acute territorial ischemia. 2. No acute fracture or dislocation in the cervical spine. 3. Chronic microvascular disease with generalized parenchymal volume loss. Dictated by: Dictated on workstation # [id number]
--- NOTE | 2019-07-05 07:04 | Diagnostic Imaging Report ---
INDICATION: Weakness, fall FINDINGS: The heart size within the upper limits of normal. No focal infiltrate, effusion or pneumothorax. IMPRESSION: Acute appearing abnormality. Dictated by: Dictated on workstation # [id number]
[2019-07-05 07:33] LABS: BILIRUBIN,URINE NEGATIVE (NEGATIVE); CLARITY,URINE CLEAR; COLOR,URINE YELLOW; GLUCOSE, URINE (UA) NEGATIVE (NEGATIVE); KETONES,URINE NEGATIVE (NEGATIVE); LEUKOCYTE ESTERASE ,URINE NEGATIVE (NEGATIVE); NITRITE,URINE NEGATIVE (NEGATIVE); PH,URINE 6.5 (5-9); PROTEIN,URINE 1+ (NEGATIVE)
[2019-07-05 07:44] LABS: BACTERIA,URINE NEGATIVE /HPF; URINE OTHER RARE SPERM /HPF
--- NOTE | 2019-07-05 08:25 | NUR ---
PT UP IN CHAIR FOR COMFORT
--- NOTE | 2019-07-05 08:29 | Diagnostic Imaging Report ---
PROCEDURE: CT lumbar spine without contrast. TECHNIQUE: Multiple contiguous axial images were obtained through the lumbar spine without the use of intravenous contrast. Sagittal and coronal reformations were then performed. Auto Exposure Controls were utilized during the CT exam to meet ALARA standards for radiation dose reduction. INDICATION: Weakness and fall. No priors. There is severe degenerative changes to the discs, endplates and facets throughout the visualized lumbar spine. There has been presumed recent posterior and interbody lumbar fusion L3-L5 with bipedicular screws and vertical rods and interbody devices in good position. There is laminectomy at L3 and L4. There is some air and fluid distortion in the operative bed as well as a small amount of gas dissecting along the visualized left retroperitoneum and body wall as in expected recent postoperative finding. Fluid and air within the laminectomy bed is noted also as an expected finding. The hardware appears in good position. Bony alignment is anatomic. The vertebral statures are within normal limits. Left lateral fusion. There does appear to be bony encroachment upon the right neural foramen at the L3-L4 level owing to endplate osteophytes. The left foramen widely patent. At L4-L5 there is at least mild biforaminal bony stenosis owing to facet arthrosis and endplate osteophytes. No visualized high-grade osseous canal stenosis. IMPRESSION: Interval multilevel posterior interbody and left lateral fusion with L3-L4 decompressive laminectomies. There are expected findings of dissecting soft tissue gas as well as fluid and edema within the operative laminectomy bed. [id number]-tijisbny multilevel bony foraminal encroachments with no high-grade osseous canal narrowing. Normal alignment. No bony destructive process. Dictated by: Dictated on workstation # [id number]
--- NOTE | 2019-07-05 08:49 | NUR ---
PT IS UNABLE TO MOVE SELF WITH OUT ASSISTANCE X2. PT IS UNABLE TO REPOSITION SELF IN BED OR CHAIR.
[2019-07-05 09:40] VITALS: BP 137/86
[2019-07-05] MEDS ORDERED: IBUP-30 PO (11:09)
[2019-07-05] MEDS ORDERED: ASPI-983 PO (11:09)
[2019-07-05] MEDS ORDERED: ACET-2267 PO (11:09)
[2019-07-05] MEDS ORDERED: RT-ALBUINH INH (11:09)
[2019-07-05] MEDS ORDERED: FAMO20TA5 PO (11:09)
[2019-07-05] MEDS ORDERED: DIPH25CA79 PO (11:09)
== END 2019-07-05 09:43 | disposition other institution (70) ==
LOC: EDUNIT# 05:31 → ER 05:32
DX: J18.9 Pneumonia, unspecified organism (principal); J44.0 Chronic obstructive pulmonary disease with (acute) lower respiratory infection; E78.00 Pure hypercholesterolemia, unspecified; I25.2 Old myocardial infarction; I25.10 Atherosclerotic heart disease of native coronary artery without angina pectoris; K21.9 Gastro-esophageal reflux disease without esophagitis; Z87.891 Personal history of nicotine dependence; Z98.1 Arthrodesis status; Z79.51 Long term (current) use of inhaled steroids; Z90.49 Acquired absence of other specified parts of digestive tract; Z95.5 Presence of coronary angioplasty implant and graft
CPT/HCPCS: 36415; 70450; 71045; 72125; 72131; 80053; 81000; 82805; 83605; 85007; 85027; 85610; 85730; 87040; 87088; 87804; 94640

== ENCOUNTER 2019-07-05 09:25 | Inpatient (IN) | payer MEDICARE, OTHER ==
[~2019-07-05] VITALS: Ht 175.2 cm; Wt 105.9 kg
[~2019-07-05 09:25] MED LIST changes: +HYDR-3812 PO
[2019-07-05] MEDS ORDERED: ONDANSETRON 4 MG/2 ML (SDV) Z0FRAN IVP PRN (09:45)
[2019-07-05] MEDS ORDERED: IPRATROPIUM 0.06% NASAL SPRAY NS PRN (09:45)
[2019-07-05] MEDS ORDERED: ONDANSETRON 4 MG (ZOFRAN) ORAL DISSOLVE TAB PO PRN (09:45)
[2019-07-05] MEDS ORDERED: ALPRAZolam 0.25 MG (XANAX) TAB PO PRN (09:45)
[2019-07-05] MEDS ORDERED: DOCUSATE SODIUM 100 MG (COLACE) CAP PO PRN (09:45)
[2019-07-05] MEDS ORDERED: CALCIUM CARBONATE 500 MG (TUMS) TAB.CHEW PO PRN (09:45)
[2019-07-05] MEDS ORDERED: diphenhydrAMINE 25 MG TAB (BENADRYL) PO PRN (09:45)
[2019-07-05] MEDS ORDERED: guaiFENesin/CODEINE (ROBITUSSIN AC) 10ML UDC PO PRN (09:45)
[2019-07-05] MEDS ORDERED: fentaNYL INJECTION 100 MCG/2 ML AMP IVP PRN (09:45)
[2019-07-05] MEDS ORDERED: BISACODYL 10 MG SUPP (DULCOLAX) PR PRN (09:45)
[2019-07-05] MEDS ORDERED: VANCOMYCIN INJECTION 0.1 MG in NS (IVPB) 250 ML IV SCH (09:45)
[2019-07-05] MEDS ORDERED: PATIENT MAY USE OWN MEDS, ALL MC SCH (09:45)
[2019-07-05] MEDS ORDERED: ACETAMINOPHEN 325 MG TABLET PO PRN (09:45)
[2019-07-05] MEDS ORDERED: LOPERAMIDE 2 MG (IMODIUM) TABLET PO PRN (09:45)
--- NOTE | 2019-07-05 09:55 | NUR ---
CECILIA BARTON admitted to room 230-1, with an admitting diagnosis of DEBILITY, on 07/05/19 from ED via W/C, accompanied by THERAPY. CECILIA BARTON introduced to surroundings, call light, bed controls, phone, TV, temperature control, lights, meal times, smoking policy, visitor policy, side rail policy, bathrooms and showers. Patient Rights given to patient in the handbook. CECILIA BARTON verbalizes understanding that [facility] is not responsible for the loss or damage to any personal effects or valuables that are kept in the patient's possession during their hospitalization. The following Patient Care Plans were discussed with the PATIENT: Discharge Planning, IMPAIRED MOBILITY, HIGH RISK: IMPAIRED SKIN INTEGRITY, HIGH RISK: INJURY, and KNOWLEDGE DEFICIT. CECILIA BARTON verbalizes understanding of Interdisciplinary Patient Education. Patient received Patient Rights Booklet, which includes Privacy Act Statement and Data Collection Information Summary.
[2019-07-05 10:00] VITALS: BP 151/72
[2019-07-05] MEDS ORDERED: RT-ALBUTEROL SULF 2.5 MG/3 ML PRE-MIX VIAL INH SCH (10:00)
--- NOTE | 2019-07-05 10:15 | Physical Therapy Evaluation ---
PT Evaluation-General Medical Diagnosis Admission Date Jul 05, 2019 at 09:30 Medical Diagnosis: debility Onset Date: Jul 05, 2019 Therapy Diagnosis Therapy Diagnosis: abnormal gait Height/Weight Height (Feet): 5 Height (Inches): 10.00 Weight (Pounds): 237 Weight (Ounces): 0.0 Precautions Precautions/Isolations: Standard Precautions Weight Bear Status Right Lower Extremity: Right Full Weight Bearing Left Lower Extremity: Left Full Weight Bearing Referral Physician: Shavon Reason for Referral: Evaluation/Treatment Medical History Pertinent Medical History: CAD, GERD, ME, Smoking (history of) Additional Medical History History of LBP with resultant need for surgery. Current History Fusion L2-5 with laminectomy 07/02/2019. Recent back surgery with resultant decrease in functional mobility. Pt discharged from acute on 07/05/2019; unable to manage at home. Returned to this facility on ARU. Reviewed History: Yes Social History Home: Single Level Current Living Status: Spouse Entry Into Home: Stairs With Railing PT Steps Into Home: 4 PT Steps Inside Home: 0 Prior Prior Level of Function SCALE: Activities may be completed with or without assistive devices. 1-Lplprsdyzb-wmikwzz completes the activity by him/herself with no assistance from a helper. 5-Set-up or Clean-up Assistance-helper sets up or cleans up; patient completes activity. Wann assists only prior to or following the activity. 4-Supervision or Touching Assistance-helper provides verbal cues and/or touching/steadying and/or contact guard assistance as patient completes activity. Assistance may be provided throughout the activity or intermittently. 3-Partial/Moderate Assistance-helper does LESS THAN HALF the effort. Wann lifts, holds or supports trunk or limbs, but provides less than half the effort. 2-Substantial/Maximal Assistance-helper does MORE THAN HALF the effort. Wann lifts or holds trunk or limbs and provides more than half the effort. 7-Wskdbziqi-vltout does ALL the effort. Patient does none of the effort to complete the activity. Or, the assistance of 2 or more helpers is required for the patient to complete the activity. If activity was not attempted, code reason: 7-Patient Refused. 9-Not Applicable-not attempted and the patient did not perform the activity before the current illness, exacerbation or injury. 10-Not Attempted due to Environmental Limitations-(lack of equipment, weather restraints, etc.). 88-Not Attempted due to Medical Conditions or Safety Concerns. Bed Mobility: 6 Transfers (B,C,W/C): 6 Gait: 6 (no AD used consistently) Stairs: 6 Indoor Mobility (Ambulation): Independent Stairs: Independent Prior Devices Use: Walker, Other-see list below (cane; QC) Pt drives and is a community ambulator PT Evaluation-Current Subjective Pt reports he is embarassed from failed attempt at home and is happy to be here for continued therapy. Pain Numeric Pain Scale: 4 Location: Posterior Location Body Site: Back Pain Description: Ache (with sharp pains with quick movement) Pt/Family Goals Pt reports his goal is to return home at a mod indep level; care for himself. Objective Patient Orientation: Person, Place, Time, Situation Attachments: IV ROM/Strength ROM Lower Extremities WFL Strength Lower Extremities B LE strength is grossly 4-/5 throughout Integumentary/Posture Integumentary Refer to nursing notes for full assessment. Bowel Incontinence: No Bladder Incontinence: No Posture rounded shoulders with thoracic kyphosis noted and forward head; lacks full hip extension in standing. Neuromuscular (Tone, Coordination, Reflexes) intact and functional Sensory Vision: Wears Glasses Hearing: Functional Hand Dominance: Right Sensation Right Lower Extremit: Intact Sensation Left Lower Extremity: Intact Transfers Roll Left to Right (QC): 7 (Pt declined getting into bed at this time) Sit to Lying (QC): 7 (pt declined getting into bed at this time. ) Lying to Sitting/Side of Bed(Q: 7 (pt declined getting into bed at this time. ) Sit to Stand (QC): 3 (min assist to stand with skilled cues for sequencing and hand placement. ) Chair/Suz-ve-Ixjsn Xfer(QC): 3 (min assist for balance and safety with use of FWW) Toilet Transfer: 3 Car Transfer (QC): 88 (pt unsafe to attempt this date. ) Slow with transfers but completes correctly with cues. Gait Does the Patient Walk?: Yes Mode of Locomotion: Walk Anticipated Mode of Locomotion: Walk Walk 10 feet (QC): 3 (min assist for balance and safety with use of FWW) Walk 50 ft with 2 Turns(QC): 3 Walk 150 ft (QC): 88 Walking 10ft/uneven surface-QC: 88 Gait Assistive Device: FWW Comments/Gait Description Slow gait with decreased step length and decreased heel strike / toe off; slow gait withh wide ABBY; slightly unsteady, min assist for safety. Wheelchair Training Does the Pt Use a Wheelchair?: No Stairs 1 Step (curb) (QC): 88 4 Steps (QC): 88 12 Steps (QC): 88 unsafe to attempt this date. Balance Sitting Static: Good Sitting Dynamic: Good Standing Static: Fair Standing Dynamic: Fair Picking up an Object (QC): 88 (contraindicated with recent back surgery.) Treatment Functional transfer and gait trainining paired with education on safety and technique. Sit to stand x several attempts and short gait distances with FWW. Partial co treat with OT due to the need for heavy cues for safety and sequencing; OT addressed sequence techniques and use of UE as PT addressed gross movement for transfers and gait. Assessment/Needs Pt presents post lumbar surgery with a decline in functional strength, balance and activity tolerance that impairs functional safety with alll mobility and also found that he was unable to safely or effectively manage at home post surgery. He will benefit from skilled therapy services to address functional strength and mobility to allow him to return to a mod indep level of gait and transfers to manage at home without assist. Rehab Potential: Good PT Short Term Goals Short Term Goals Time Frame: Jul 12, 2019 Sit to lyin Lying to sitting on side of be: 4 Sit to stand: 5 Chair/dse-px-grtvp transfer: 5 Walk 150 feet: 4 1 step (curb): 4 PT It Architecture Analyst Goals It Architecture Analyst Goals PT Snf Goals Time Frame: Jul 20, 2019 Roll Left & Right (QC): 6 Sit to Lying (QC): 6 Lying-Sitting on Side/Bed(QC): 6 Sit to Stand (QC): 6 Chair/Pbi-sy-Myeyh Xfer(QC): 6 Toilet Transfer (QC): 6 Car Transfer (QC): 5 Does the Patient Walk: Yes Walk 10 feet (QC): 6 Walk 50ft with 2 Turns (QC): 6 Walk 150 ft (QC): 6 Walking 10ft on Uneven Surface: 6 1 Step (curb) (QC): 6 4 Steps (QC): 6 12 Steps (QC): 9 Picking up an Object (QC): 88 Does the Pt use WC or Scooter?: No PT Plan Problem List Problem List: Activity Tolerance, Functional Strength, Safety, Balance, Gait, Transfer, Bed Mobility Treatment/Plan Treatment Plan: Continue Plan of Care Treatment Plan: Bed Mobility, Education, Functional Activity Melissa, Functional Strength, Group Therapy, Gait, Safety, Therapeutic Exercise, Transfers Treatment Duration: Jul 20, 2019 Frequency: Modified Program (IRF) (15/ per physician) Estimated Hrs Per Day: 1.5 hours per day (1 to 1.5) Safety Risks/Education Patient Education: Transfer Techniques, Safety Issues Teaching Recipient: Patient Teaching Methods: Demonstration, Discussion Response to Teaching: Reinforcement Needed Discharge Recommendations Therapy Discharge Recommendati: Post Acute PT (HHC PT) Time/GCodes Time In: 950 Time Out: 1015 ([id number] co treat with [id number] treat) Total Billed Treatment Time: 65 Total Billed Treatment visit X 2 EVM 25 FA 30 (co treat with OT) FA 10 BRANDEE VELAZQUEZ PT Jul 05, 2019 10:15
[2019-07-05 10:16] VITALS: BP 151/72
--- NOTE | 2019-07-05 10:34 | Pulmonary Consultation ---
History of Present Illness History of Present Illness Date Seen by Provider: Jul 05, 2019 Time Seen by Provider: 10:19 Date of Admission Allergies and Home Medications Allergies Coded Allergies: No Known Drug Allergies (Unverified , 08/13/16) Home Medications Acetaminophen 500 Mg Tablet, 500-1,000 MG PO Q4H PRN for PAIN-MILD (1-4), (Reported) Albuterol Sulfate 1 Puff Puff, 2 PUFF INH QID PRN for SHORTNESS OF BREATH, (Re ported) 1 PUFF = 90 MCG Aspirin 81 Mg Tablet.dr, 81 MG PO DAILY, (Reported) Atorvastatin Calcium 40 Mg Tablet, 40 MG PO DAILY, (Reported) Carvedilol 3.125 Mg Tablet, 3.125 MG PO BID, (Reported) Diphenhydramine HCl 25 Mg Capsule, 25-50 MG PO HS PRN for ALLERGIES, (Reported) Famotidine 20 Mg Tablet, 20 MG PO DAILY PRN for HEARTBURN, (Reported) Fluticasone/Salmeterol 1 Each Blst.w.dev, 1 PUFF IH BID, (Reported) Hydrocodone/Acetaminophen 1 Each Tablet, 1-2 TAB PO Q4H PRN for PAIN-MODERATE (5-7), (Reported) Ibuprofen 200 Mg Tablet, 400 MG PO TID PRN for PAIN-MILD (1-4), (Reported) Ipratropium [place] 30 Ml Kelly, 2 SPRAYS NS QID PRN for CONGESTION, (Reported) Losartan Potassium 50 Mg Tablet, 50 MG PO DAILY, (Reported) Montelukast Sodium 10 Mg Tablet, 10 MG PO HS, (Reported) Past Jporqob-Irhixx-Tmdxtv Hx Patient Social History Type Used: Cigarettes Former Smoker, Quit: Jun 25, 2008 2nd Hand Smoke Exposure: No Recent Foreign Travel: No Contact w/Someone Who Travel: No Recent Infectious Disease Expo: No Recent Hopitalizations: No Immunizations Up To Date Tetanus Booster (TDap): More than 5yrs Date of Pneumonia Vaccine: Mar 15, 2016 Date of Influenza Vaccine: Apr 13, 2017 Seasonal Allergies Seasonal Allergies: Yes Past Medical History Surgeries: Yes (cysts removed thumb/scapula, CAROTID ARTERY,back) Appendectomy, Coronary Stent Respiratory: Yes (USES BIPAP, GETS SOB WITH EXERCISE) Sleep Apnea, COPD Currently Using CPAP: No Currently Using BIPAP: No Cardiac: Yes (STENTS X2) Coronary Artery Disease, Heart Attack, High Cholesterol Neurological: No Reproductive Disorders: No Sexually Transmitted Disease: No HIV/AIDS: No Genitourinary: No Gastrointestinal: Yes (REFLUX RARELY, OCCASIONAL CONSTIPATION) Gastroesophageal Reflux Musculoskeletal: Yes (Closed reductions) Chronic Back Pain, Fractures Endocrine: No HEENT: Yes (glasses - near sighted, DENTURES) Loss of Vision: Denies Hearing Impairment: Denies Cancer: No Did You Recieve Any Treatments: No Psychosocial: No 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 0.0oz. [id number]; 37.00 BMI Method:Stated Exam Exam Vital Signs Date Time Temp Pulse Resp B/P (MAP) Pulse Ox O2 Delivery O2 Flow Rate FiO2 07/05/19 10:00 36.5 86 20 151/72 (98) 97 Room Air Height & Weight Height: 5'10.00" Weight: 237lbs. 0.0oz. 107.387231eu; 37.00 BMI Method:Stated Assessment/Plan Assessment/Plan Severe COPD -Duoneb -Oxygen -Monitor CAD Debility History of LBP with resultant need for surgery. s/p Fusion L2-5 with laminectomy VENKAT APARICIO DO Jul 05, 2019 10:34
--- NOTE | 2019-07-05 10:37 | Progress Note ---
MIRIAM THAPA [facility] 07/05/19 1037: Progress Note HPI: Con is a 73 year old male that underwent lumbar spine fusion due to spinal stenosis 4 days ago. Patient did not want to participate in rehab post operatively and was discharged to home. Patient rolled off bed at home when trying to get to the bathroom. He is debilitated at this time and was unable to get himself up from the floor, this required EMS transfer and many people to assist getting him to the hospital. Patient is adamant about the fact that he did not fall. Patient uses a walker and cane at home. When I arrived to the ER patient was being transferred to the rehab floor. He was unable to transfer to the wheelchair and was brought up to 2nd floor in his recliner. Patient had a CT scan of head, Cspine and lumbar spine and no trauma from his fall was identified. Patient had increased lactic acid, elevated white count, and dyspnea in ED, CXR was done and is suspicious for pneumonia. Patient has a history of CAD and has had several stents placed, this is managed by Dr. Membreno. Patient also has COPD that is managed by Dr. Tellez. His most recent stress test on 05/21 showed no abnormalities and an echo done on 05/17 showed grade I diastolic dysfu nction, dilated LA, Tricuspid regurg and pulmonary pressure of 35. Patient is constipated. States he has not had a bowel movement since his surgery 4 days ago and does not remember when it was prior to the surgery. Nurse changed incision dressings while I was present. Mid lumbar Incision had some drainage but looked good overall. Incision on left side had some bruising around but looked good overall. ROS: Patient denies changes in eyesight or hearing, headaches, difficulty speaking or swallowing, chest pain or palpitations, changes in bowel habits, blood in stool or in urine. Patient admits to some dyspnea, and says "chest feels congested" which he attributes to his COPD, and admits to tingling and dumbness in his legs b/l by the hips. PMH: Nasal congestion, CAD, COPD, back pain, numbness and tingling in legs. Patient denies any other PMH. Surgical Hx: Lumbar fusion, 2 cardiac stents and 1 carotid stent, non-ruptured appendix removal, cyst removal from back and hand (electively done for comfort, patient states there was no concern). SH: Patient is a prior smoker and quit 11 years ago. Patient denies drinking or drug use. He is from [place] and is , has no children. 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 FAM HX: Father of lupus complications and mother of unknown reasons. PHYSICAL EXAM: General: Patient is alert, WDWN, debilitated and tired. He is conversational and mostly cooperative. Sitting on the side of the bed during my visit. Heart: RRR, could not feel radial pulses b/l, no murmur or gallops heard. No edema. Lungs: Cap refill <3s, lungs CTAB, but breath sounds are distant GI: Some distention, no abdominal pain. Neuro: EOM intact. Derm: Dry and flaky skin on arms which patient attributes to cold weather. Incision from lumbar surgery on back and side. ASSESSMENT s/p lumbar spine fusion for lumbar stenosis Pneumonia Debility COPD Constipation Hx of CAD Lactic acidosis - resolved Leukocytosis Hyponatremia Anemia Fam hx of Lupus PLAN: manage incision site pain management Continue abx - cefepine and vanco. Place mid line IVF Stool softeners Rehab 25/12 Currently using bipap machine. Consult Dr. Tellez for eval and management Consult Dr. Membreno for eval and management if needed NOHEMY FRANCO DO 07/05/192034: Supervisory-Addendum Brief Verification & Attestation Participated in pt care: history, MDM, physical Personally performed: exam, history, MDM, supervision of care Care discussed with: Medical Student Procedures: n/a Results interpretation: Verified all documentation Verification and Attestation of Medical Student E/M Service A medical student performed and documented this service in my presence. I reviewed and verified all information documented by the medical student and made modifications to such information, when appropriate. I personally performed the physical exam and medical decision making. Nohemy Franco, Jul 05, 2019,20:35 M[facility]IAM THAPA [facility] Jul 05, 2019 10:37 NOHEMY FRANCO DO Jul 05, 2019 20:35
[2019-07-05] MEDS: NS IV 1000 ML 1,000 ML IV SCH ×2 (10:51→18:36)
[2019-07-05] MEDS ORDERED: VANCOMYCIN INJECTION 2,250 MG in NS IV 500 ML 500 ML IV NR (10:52)
--- NOTE | 2019-07-05 10:54 | Occupational Therapy Eval ---
OT Evaluation-General/PLF Medical Diagnosis Admission Date Jul 05, 2019 at 09:30 Medical Diagnosis: debility, s/p DLIP/PSDF Onset Date: Jul 02, 2019 Therapy Diagnosis Therapy Diagnosis: Decreased ADL function Height/Weight Height (Feet): 5 Height (Inches): 10.00 Weight (Pounds): 237 Weight (Ounces): 0.0 Precautions Precautions/Isolations: Standard Precautions Weight Bear Status WBS (Ord/Comment): Back precautions- back brace on when up. Referral Physician: Nohemy Yung DO Referral Reason: Activity Tolerance, Self Care, Evaluation/Treatment, [facility] Medical History Pertinent Medical History: CAD, GERD, CT, Smoking Additional Medical History CAD, GERD, CT, smoking (quit 2007) Current History Pt underwent back surgery (L3-5 DLIF, PSDF) 07/02/19, pt returned home 07/04/19. Pt states pain and strength limited pt, stating he was unable to get up to utilize bathroom. Pt states 6 people assisted him into the vehicle to return to ER. Pt admits to ARU this morning on 07/05/19 Reviewed History: Yes Social History Home: Single Level (mobile home) Current Living Status: Spouse Entry Into Home: Stairs With Railing Steps Into Home: 4 ADL-Prior Level of Function SCALE: Activities may be completed with or without assistive devices. 3-Jeahhopohy-eqeffyy completes the activity by him/herself with no assistance from a helper. 5-Set-up or Clean-up Assistance-helper sets up or cleans up; patient completes activity. Dolphin assists only prior to or following the activity. 4-Supervision or Touching Assistance-helper provides verbal cues and/or touching/steadying and/or contact guard assistance as patient completes activity. Assistance may be provided throughout the activity or intermittently. 3-Partial/Moderate Assistance-helper does LESS THAN HALF the effort. Dolphin lifts, holds or supports trunk or limbs, but provides less than half the effort. 2-Substantial/Maximal Assistance-helper does MORE THAN HALF the effort. Dolphin lifts or holds trunk or limbs and provides more than half the effort. 3-Vidrwmrcu-uxvjcg does ALL the effort. Patient does none of the effort to complete the activity. Or, the assistance of 2 or more helpers is required for the patient to complete the activity. If activity was not attempted, code reason: 7-Patient Refused. 9-Not Applicable-not attempted and the patient did not perform the activity befo re the current illness, exacerbation or injury. 10-Not Attempted due to Environmental Limitations-(lack of equipment, weather re straints, etc.). 88-Not Attempted due to Medical Conditions or Safety Concerns. ADL PLOF Comments Pt states IND with ADLs, functional mobility with FWW, quad or single point cane. Self Care: Independent Functional Cognition: Independent DME/Equipment: Grab Bars, Shower DME/Equipment Comments Pt states plastic grab bars in mobile home, stands during showers. 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 Drive Self: Yes OT Current Status Subjective Pt seen EOB with PT present. OT evaluation [id number], OT/ PT cotreat from 1025- 1040. Co-treat rendered due to pt mobility, pain, fatigue that requires the skill of two therapists that of which an aide could not provide. Pt agreeable to session, states 4/10 pain currently. Mental Status/Objective Patient Orientation: Person, Place, Situation, Normal For Age Current Glasses/Contacts: Yes Hearing Aids: No Dentures/Partials: Yes Hand Dominance: Right ("can use both") Upper Extremity ROM BUE to 90* shoulder flexion/ abduction tested. WFL. Upper Extremity Coordination WFL BUE Upper Extremity Sensation WFL BUE Upper Extremity Strength Did not test per 5-10lb precautions and pain. Pt limb driver strength WFL bilaterally ADL-Treatment Eating (QC): 6 Oral Hygiene (QC): 7 Shower/Bathe Self (QC): 7 Upper Body Dressing (QC): 7 Lower Body Dressing (QC): 7 On/Off Footwear (QC): 7 Toileting Hygiene (QC): 7 Other Treatments OT evaluation: 5332-0530 (10) OT/ PT co-treat: [id number] (15) Pt sits EOB during session. Pt denies ADLs, PT states pt stands during urination/ washes hands with CGA and use of FWW. Pt states knee "locks up" on him and pt requires assist of FWW/ quad cane/ SPC at times. Pt IND with self- care at home with , states he drives and assists with work tasks. Pt's ROM WFL BUE. Pt talkative and pleasant, oriented x4. Pt denies self care tasks later in day, stating he would like to shower next day. Pt states he would rather not complete therapy today, agreeable to tasks stated (AE education, pant don/ doffing, and exercise). Pt able to state 1/3 precautions, education on 3/3 precautions. Pt left EOB with DO student, call light in reach, all needs met. Pt educated on ARU standards, OT role, and goals of therapy for the day. Education OT Patient Education: Correct positioning, Modified ADL techniques, Purpose of tx/functional activities, Reviewed precautions, Rehab process Teaching Recipient: Patient Teaching Methods: Demonstration, Discussion Response to Teaching: Verbalize Understanding, Return Demonstration, Reinforcement Needed OT Short Term Goals Short Term Goals Time Frame: Jul 12, 2019 Eatin Oral hygiene: 6 Toileting hygiene: 3 Shower/bathe self: 3 Upper body dressin Lower body dressin Putting on/taking off footwear: 3 OT Pen[facility] Goals Structural Layout Worker Goals Time Frame: Jul 19, 2019 Eating (QC): 6 Oral Hygiene (QC): 6 Toileting Hygiene (QC): 6 Shower/Bathe Self (QC): 6 Upper Body Dressing (QC): 6 Lower Body Dressing (QC): 6 On/Off Footwear (QC): 6 Additional Goals: 1-Demonstrate ADL Tasks, 2-Verbalize Understanding, 3- ImproveStrength/Melissa 1=Demonstrate adherence to instructed precautions during ADL tasks. 2=Patient will verbalize/demonstrate understanding of assistive devices/modifications for ADL. 3=Patient will improve strength/tolerance for activity to enable patient to perform ADL's. OT Education/Plan Problem List/Assessment Assessment: Decreased Activ Tolerance, Dependent Transfers, Impaired Bed Mobility, Impaired Funct Balance, Impaired I ADL's, Impaired Self-Care Skills, Restricted Funct UE ROM Discharge Recommendations Plan/Recommendations: Continue POC Therapy Discharge Recommendati: Home & Family Equpiment Recommendations-D/C: Rails on Tub/Shower, Bath Chair, Hip Kit Treatment Plan/Plan of Care Treatment,Training & Education: Yes Patient would benefit from OT for education, treatment and training to promote independence in ADL's, mobility, safety and/or upper extremity function for ADL's. Plan of Care: ADL Retraining, Caregiver Training, Concurrent Therapy, Functional Mobility, Group Exercise/Act as Ind, Orthotic Fitting/Training, UE Funct Exercise/Act Treatment Duration: Jul 19, 2019 Frequency: At least 5 of 7 days/Wk (IRF) Estimated Hrs Per Day: 1.5 hours per day Agreement: Yes Rehab Potential: Good Time/GCodes Start Time: 10:15 Stop Time: 10:40 Total Time Billed (hr/min): 25 Billed Treatment Time 1, EVM (10), FA (15)= 25 YASIR VALLADARES OTR Jul 05, 2019 10:53
[2019-07-05] MEDS ORDERED: RT-ALBUINH INH (11:09)
[2019-07-05] MEDS ORDERED: FAMO20TA5 PO (11:09)
[2019-07-05] MEDS ORDERED: ASPI-983 PO (11:09)
[2019-07-05] MEDS ORDERED: ACET-2267 PO (11:09)
[2019-07-05] MEDS ORDERED: IBUP-30 PO (11:09)
[2019-07-05] MEDS ORDERED: DIPH25CA79 PO (11:09)
--- NOTE | 2019-07-05 11:10 | NUR ---
VANCOMYCIN DOSING: SCr 0.94, CrCl 81.6 LOADING DOSE 20MG/KG X 116.6 KG ~ 2250 MG, MAINTENANCE DOSE 15MG/KG X 116.6 KG ~ 1750 MG Q12H; VANCOMYCIN TROUGH DUE 07/06 @ 1000; IF TROUGH GREATER THAN 20, HOLD 07/06 1100 DOSE Addendum: 07/05/19 at 1228 by DELFINA RICE [facility] PATIENT RECEIVED VANC 1 GM IN ED ON DIFFERENT ACCOUNT WILL NOT DO BOLUS DOSE & WILL START VANC 1750 MG AT 12:00 TROUGH LEVEL TO BE DRAWN BEFORE 3RD DOSE 07/06 AT 11:00
--- NOTE | 2019-07-05 11:13 | NUR ---
SPOKE WITH THE PATIENT ABOUT HIS MEDICATIONS. I CALLED [facility] FOR A LIST OF RECENTLY FILLED MEDS AND WENT OVER IT WITH THE PATIENT. HE ALSO LISTED AND VERIFIED HIS OTC MEDS. [facility] FILLED: 07-04-19 HYDROCODONE 5-325MG 1-2 TABS Q4H PRN 06-22-19 SINGULAIR 10MG HS 05-29-19 COREG 3.125MG BID #180 (STATES THIS IS NOT FOR BP PURPOSES) 05-29-19 IPRATROPIUM NASAL SPRAY 2 SPRAYS EN QID PRN 04-27-19 ATORVASTATIN 40MG DAILY #90 04-15-19 LOSARTAN 50MG DAILY #90 04-15-19 ADVAIR 250/50 BID #3 04-03-19 DIAZEPAM 5MG #2 (FOR PROCEDURE ONLY, NO LONGER TAKING) 03-28-19 TRAMADOL 50MG Q8H PRN #20 (STATES HE HAD SOME BUT STOPPED WHEN GAVE HYDRO) 03-06-19 VENTOLIN 2 QID PRN OTC MEDS: TYLENOL PRN ASPIRIN 81MG DAILY BENADRYL 1-2 HS PRN PEPCID DAILY PRN IBU 2 TID PRN
[2019-07-05] MEDS ORDERED: FLU QUADRIvalent (5+ YOA) 2019-2020 (AFLURIA) 0.5 ML IM ONE (11:15)
[2019-07-05] MEDS ORDERED: CEFEPIME INJECTION 2,000 MG in WATER (STERILE) FOR INJECTION 20 ML IV SCH (12:00)
--- NOTE | 2019-07-05 12:42 | NUR ---
DR. FRANCO NOTIFIED OF DVT/VTE RISK. ORDERS TO START LOVENOX- 40 MG SQ DAILY ON 07/07/2019, PER DR. SWANSON. NOT BEFORE TUESDAY.
--- NOTE | 2019-07-05 12:46 | Physical Therapy Daily Note ---
PT Daily Note-Current Subjective Pt requesting to lie down. Reports he will need help Transfers SCALE: Activities may be completed with or without assistive devices. 4-Twebyloqmg-uvxsjbd completes the activity by him/herself with no assistance from a helper. 5-Set-up or Clean-up Assistance-helper sets up or cleans up; patient completes activity. [place] assists only prior to or following the activity. 4-Supervision or Touching Assistance-helper provides verbal cues and/or touching/steadying and/or contact guard assistance as patient completes activity. Assistance may be provided throughout the activity or intermittently. 3-Partial/Moderate Assistance-helper does LESS THAN HALF the effort. [place] lifts, holds or supports trunk or limbs, but provides less than half the effort. 2-Substantial/Maximal Assistance-helper does MORE THAN HALF the effort. [place] lifts or holds trunk or limbs and provides more than half the effort. 3-Ojquntyts-bginzw does ALL the effort. Patient does none of the effort to complete the activity. Or, the assistance of 2 or more helpers is required for the patient to complete the activity. If activity was not attempted, code reason: 7-Patient Refused. 9-Not Applicable-not attempted and the patient did not perform the activity before the current illness, exacerbation or injury. 10-Not Attempted due to Environmental Limitations-(lack of equipment, weather restraints, etc.). 88-Not Attempted due to Medical Conditions or Safety Concerns. Roll Left & Right (QC): 2 Sit to Lying (QC): 1 (assist of 2 to lie down. ) Weight Bearing Right Lower Extremity: Right Full Weight Bearing Left Lower Extremity: Left Full Weight Bearing Treatments Worked on sit to stand EOB prior to lying down with min assist to stand and skilled cues for sequencing. Bed mobility training complete with sit to sup techniques and rolling performed. Pt in bed post treatment with needs met. Assessment Pt needs full assist with bed mobilty. PT Short Term Goals Short Term Goals Time Frame: Jul 12, 2019 Sit to lyin Lying to sitting on side of be: 4 Sit to stand: 5 Chair/exp-wf-zdzxo transfer: 5 Walk 150 feet: 4 1 step (curb): 4 PT Mcfp Goals Senior Sql Server Developer Goals PT Senior Sql Server Developer Goals Time Frame: Jul 20, 2019 Roll Left & Right (QC): 6 Sit to Lying (QC): 6 Lying-Sitting on Side/Bed(QC): 6 Sit to Stand (QC): 6 Chair/Fcc-wn-Rauhb Xfer(QC): 6 Toilet Transfer (QC): 6 Car Transfer (QC): 5 Does the Patient Walk: Yes Walk 10 feet (QC): 6 Walk 50ft with 2 Turns (QC): 6 Walk 150 ft (QC): 6 Walking 10ft on Uneven Surface: 6 1 Step (curb) (QC): 6 4 Steps (QC): 6 12 Steps (QC): 9 Picking up an Object (QC): 88 Does the Pt use WC or Scooter?: No PT Plan Problem List Problem List: Activity Tolerance, Functional Strength, Safety, Balance, Gait, Transfer, Bed Mobility Treatment/Plan Treatment Plan: Continue Plan of Care Treatment Plan: Bed Mobility, Education, Functional Activity Melissa, Functional Strength, Group Therapy, Gait, Safety, Therapeutic Exercise, Transfers Treatment Duration: Jul 20, 2019 Frequency: Modified Program (IRF) (15/ per physician) Estimated Hrs Per Day: 1.5 hours per day (1 to 1.5) Time/GCodes Time In: 1230 Time Out: 1242 Total Billed Treatment Time: 12 Total Billed Treatment visit FA 12 BRANDEE VELAZQUEZ PT Jul 05, 2019 12:46
[2019-07-05] MEDS: VANCOMYCIN 1,750 MG/NS 500 ML IVPB IV SCH ×4 (12:54→23:59)
--- NOTE | 2019-07-05 13:36 | Occupational Ther Daily Note ---
OT Current Status-Daily Note Subjective Pt seen in bed, agreeable to OT tx session. Pt states minimal pain, desires to complete therapy to take nap prior to coming to ARU for visit. Mental Status/Objective Patient Orientation: Normal For Age Attachments: IV ADL-Treatment Therapy Code Descriptions/Definitions Functional [place] Measure: 0=Not Assessed/NA 4=Minimal Assistance 1=Total Assistance 5=Supervision or Setup 2=Maximal Assistance 6=Modified [place] 3=Moderate Assistance 7=Complete IndependenceSCALE: Activities may be completed with or without assistive devices. 2-Duldhqppws-nomgfny completes the activity by him/herself with no assistance from a helper. 5-Set-up or Clean-up Assistance-helper sets up or cleans up; patient completes activity. [place] assists only prior to or following the activity. 4-Supervision or Touching Assistance-helper provides verbal cues and/or touching/steadying and/or contact guard assistance as patient completes activity. Assistance may be provided throughout the activity or intermittently. 3-Partial/Moderate Assistance-helper does LESS THAN HALF the effort. [place] lifts, holds or supports trunk or limbs, but provides less than half the effort. 2-Substantial/Maximal Assistance-helper does MORE THAN HALF the effort. [place] lifts or holds trunk or limbs and provides more than half the effort. 6-Fdxemrdkf-gjvpbk does ALL the effort. Patient does none of the effort to complete the activity. Or, the assistance of 2 or more helpers is required for the patient to complete the activity. If activity was not attempted, code reason: 7-Patient Refused. 9-Not Applicable-not attempted and the patient did not perform the activity before the current illness, exacerbation or injury. 10-Not Attempted due to Environmental Limitations-(lack of equipment, weather restraints, etc.). 88-Not Attempted due to Medical Conditions or Safety Concerns. Other Treatment Pt seen in bed, educated on log roll technique. Pt completes log roll supine to sit with SUP, requires bed raised to sit to stand to FWW. Pt states desire for bathroom, walks with FWW with decreased stride length/ increased time to bathroom. Pt places FWW over toilet and completes toileting in stance, returns to EOB with increased time and CGA. Pt completes AE training EOB: sock aide, shoe horn, dressing stick, and business line manager. Pt states he has business line manager at home. Pt returns to bed with mod A for BLE into bed. Pt completes 1 set of 5 of each exercise: back flies, biceps, triceps, and scaption. HEP given to pt. Pt left with pic line nursing, call light in reach, all needs met. Education OT Patient Education: Exercise program, Home exercise program, Safety issues, Transfer techniques, Use of adapted equipment Teaching Recipient: Patient Teaching Methods: Demonstration, Discussion Response to Teaching: Verbalize Understanding, Return Demonstration, Reinforcement Needed OT Short Term Goals Short Term Goals Time Frame: Jul 12, 2019 Eatin Oral hygiene: 6 Toileting hygiene: 3 Shower/bathe self: 3 Upper body dressin Lower body dressin Putting on/taking off footwear: 3 OT Fpc Goals Pan Pusher Goals Time Frame: Jul 19, 2019 Eating (QC): 6 Oral Hygiene (QC): 6 Toileting Hygiene (QC): 6 Shower/Bathe Self (QC): 6 Upper Body Dressing (QC): 6 Lower Body Dressing (QC): 6 On/Off Footwear (QC): 6 Additional Goals: 1-Demonstrate ADL Tasks, 2-Verbalize Understanding, 3- ImproveStrength/Melissa 1=Demonstrate adherence to instructed precautions during ADL tasks. 2=Patient will verbalize/demonstrate understanding of assistive devices/modifications for ADL. 3=Patient will improve strength/tolerance for activity to enable patient to perform ADL's. OT Education/Plan Problem List/Assessment Assessment: Decreased Activ Tolerance, Decreased UE Strength, Dependent Transfers, Impaired Bed Mobility, Impaired I ADL's, Impaired Self-Care Skills Discharge Recommendations Plan/Recommendations: Continue POC Treatment Plan/Plan of Care Treatment,Training & Education: Yes Patient would benefit from OT for education, treatment and training to promote independence in ADL's, mobility, safety and/or upper extremity function for ADL's. Plan of Care: ADL Retraining, Caregiver Training, Concurrent Therapy, Functional Mobility, Group Exercise/Act as Ind, Orthotic Fitting/Training, UE Funct Exercise/Act Treatment Duration: Jul 19, 2019 Frequency: At least 5 of 7 days/Wk (IRF) Estimated Hrs Per Day: 1.5 hours per day Agreement: Yes Rehab Potential: Good Time/GCodes Start Time: 12:50 Stop Time: 13:30 Total Time Billed (hr/min): 40 Billed Treatment Time 1, ADL 2 (30), EX (10)= 40 YASIR VALLADARES OTR Jul 05, 2019 13:36
--- NOTE | 2019-07-05 13:47 | NUR ---
DR. FRANCO NOTIFIED OF CRITICAL LACTIC ACID-3.64. ORDERS TO CONTINUE IVF. GET BMP AND ABG. KARAN RT, NOTIFIED OF ORDER FOR ABG.
--- NOTE | 2019-07-05 14:33 | NUR ---
PATIENT STATES WILL BRING IPRATROPIUM BROMIDE FROM HOME.
[2019-07-05 14:45] LABS: BUN/CREATININE RATIO 15; CALCIUM 8.4 MG/DL (8.5-10.1); CARBON DIOXIDE 21 MMOL/L (21-32); CHLORIDE 100 MMOL/L (98-107); CREATININE SERUM 0.85 MG/DL (0.60-1.30); GFR ESTIMATED > 60; GLUCOSE 143 MG/DL (70-105); POTASSIUM 3.3 MMOL/L (3.6-5.0); SODIUM 131 MMOL/L (135-145)
--- NOTE | 2019-07-05 14:47 | ST Cognitive Linguistic Eval ---
Speech Evaluation-General Medical Diagnosis debility, s/p DLIP/PSDF Onset Date: Jul 02, 2019 Therapy Diagnosis Therapy Diagnosis: Cognitive-communication Referral Referring Physician: Dr. Yung Medical History Pertinent Medical History: CAD, GERD, [place], Smoking (history of) Reviewed History: Yes Social History Current Living Status: Spouse Speech PLF-Current Status Prior Level of Function Patient reports having no cognitive communication deficits prior to hospital admission Subjective Patient was alert and cooperative for all evaluation tasks. Patient reported that he was trying to take a nap prior to the start of the evaluation, however completed all evaluation questions. Language Eval: Auditory Comprehends Simple Yes/No Ques: Functional Indent/Objects Multiple [place]: Functional Ident/Pics in Multiple [place]: Functional Follows 1-Step Commands: Functional Follows Complex Directions: Functional Follows General Conversations: Functional Language Eval: Verbal Language Completes Spontaneous Greeting: Functional Produces Auto, Serial Info: Functional Imitates Simple Words/Phrases: Functional Word Finding: Functional Requests Basic Needs: Functional States Basic Personal Info: Functional Expresses Complex Ideas: Functional Objective Cognitive Domain Attention: WNL Memory: WNL Problem Solving: Functional Executive Functions: WNL Visuospatial Skills: WNL Composite Severity Rating: WNL Clock Drawing Severity Rating: WNL Objective Formal/Standardized Tests [facility] Mental Status (UMS) Examination was administered Results Patient was administered the SLUMS and scored 30/30 which falls within normal limits of cognitive functions. Oral Motor/Speech Production Within functional limits. Impression Patient was admitted to the ARU s/p fall at home. Patient scored a 30/30 on the SLUMS which falls within normal limits of cognitive function. Patient does not require skilled ST services at this time. Speech Patient Assess Expression of Ideas/Wants: Expression (4) Understanding Verbal Content: Understands (4) Brief Interview-Mental Status: Yes Repetition of Three Words: Three (3) Temporal Orientation: Year: Correct (3) Temporal Orientation: Month: Accurate within 5 days(2) Temporal Orientation: Day: Correct (1) Recall : Wear to say "Sock": Yes, no cue required (2) Recall : Color: Yes, no cue required (2) Recall : Bed: Yes, no cue required (2) Memory/Recall Ability: Current season, That he or she is in a hsp/hsp unit Speech-Plan Patient/Family Goals Patient/Family Goals: Patient reports wanting to return home to previous level of mobility. Treatment Plan Speech Therapy Treatment Plan: Discontinue ST Treatment Duration: Jul 05, 2019 Frequency: 1 time per week Estimated Hrs Per Day: .25 hour per day Rehab Potential: Good Barriers to Learning: Current medical status Pt/Family Agrees to Plan: Yes Safety Risks/Education Teaching Recipient: Patient Teaching Methods: Demonstration Response to Teaching: Verbalize Understanding Education Topics Provided: Patient verbalized understanding of evaluation tasks. Time Speech Therapy Time In: 11:45 Speech Therapy Time Out: 12:00 Total Billed Time: 15 Billed Treatment Time 1, SPSNDCOMRIKI Mcnair Jul 05, 2019 14:47
--- NOTE | 2019-07-05 14:49 | NUR ---
PATIENT REFUSING ABG. DR. FRANCO NOTIFIED.
--- NOTE | 2019-07-05 15:06 | PM&R Post Admission Assessment ---
PM&R HP Date of Visit: Jul 05, 2019 Time of Visit: 12:40 History of Present Illness Chief Complaint: Debility following lumbar spine surgery with radiculopathy HPI: This is a clinic 73yoWM clinic patient of Rosalinda Mayorga, Temi and Carlos Eduardo who has a PMH of DIONNE maintained on BiPAP and HTN, who presents to the inpatient rehab after leaving from the hospital yesterday after an extensive spine surgery after declining home health or inpatient rehab due to the significant debility he had accumulated since surgery, so he went home, it took four people to get him in the car yesterday and he got home, suffered a fall, came to the ER this morning found to have pneumonia with elevated white count of 15, slight elevation lactic acid, and CT scan done on lumbar spine showed all hardware in place. He has since changed his mind and is agreeable for inpatient rehab, will perform a very slow PT structure of 15/7 to enable him to recover from pneumonia and treat the mild sepsis he has in addition to severe pain and debility from muscle spasms from the surgery. I have conferred with Dr. Membreno and Dr. Tellez who will see him in consultation. His lactic acid increased on the following check and Dr Tellez ordered 1 liter of NS IVF. He has been refusing most meds, nebs and ABG's. He is still having numbness and tingling in his legs and feet since surgery so will need aggressive therapy in order to help recover. Past Buqdixu-Ttyzyq-Bszgvl Hx Past Med/Social Hx: Reviewed Nursing Past Med/Soc Hx, Reviewed and Corrections made Patient Social History Marrital Status: Employed/Student: retired Alcohol Use: Occasionally Uses Smoking Status: Former Smoker Former Smoker, Quit: Jun 25, 2008 Type Used: Cigarettes 2nd Hand Smoke Exposure: No Recent Foreign Travel: No Contact w/other who traveled: No Recent Hopitalizations: No Recent Infectious Disease Expo: No Immunizations Up To Date Tetanus Booster (TDap): More than 5yrs Date of Pneumonia Vaccine: Mar 15, 2016 Date of Influenza Vaccine: Apr 13, 2017 Seasonal Allergies Seasonal Allergies: Yes Past Medical History Surgeries: Appendectomy, Coronary Stent Respiratory: Sleep Apnea Currently Using CPAP: No Currently Using BIPAP: Yes Cardiac: Coronary Artery Disease, Heart Attack, High Cholesterol Reproductive: No Sexually Transmitted Disease: No HIV/AIDS: No Genitourinary: Benign Prostatic Hyperpl Gastrointestinal: Gastroesophageal Reflux Musculoskeletal: Chronic Back Pain, Fractures Loss of Vision: Denies Hearing Impairment: Denies Did You Recieve Any Treatments: No History of Blood Disorders: No Adverse Reaction to Blood Fernandez: No (N/A) Family History Abdominal aortic aneurysm 03 FATHER (DOESN'T KNOW MUCH ABOUT FAMILY HX) No Family History of: Cancer of colon Prior Level of Function Bed Mobility: 6 Transfers: 6 Gait: 6 (no AD used consistently) Stairs: 6 Indoor Mobility (Ambulation): Independent Stairs: Independent Prior Devices Use: Walker, Other-see list below (cane; QC) Self Care: Independent Functional Cognition: Independent 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 Drive Self: Yes Current Level of Fuctioning Roll Left to Right: 2 Sit to Lyin (assist of 2 to lie down. ) Lying to Sitting/Side of Bed: 7 (pt declined getting into bed at this time. ) Sit to Stand: 3 (min assist to stand with skilled cues for sequencing and hand placement. ) Chair/Plk-gp-Omnix Xfer: 3 (min assist for balance and safety with use of FWW) Car Transfer: 88 (pt unsafe to attempt this date. ) Does the Patient Walk: Yes Mode of Locomotion: Walk Anticipated Mode of Locomotion: Walk Walk 10 feet: 3 (min assist for balance and safety with use of FWW) Walk 50 ft with 2 Turns: 3 Walk 150 ft: 88 Walking 10ft on uneven surface: 88 Gait Assistive Device: FWW Does the Pt Use a Wheelchair: No 1 Step (curb): 88 4 Steps: 88 12 Steps: 88 Picking up an Object: 88 (contraindicated with recent back surgery.) Eatin Oral Hygiene: 7 Shower/Bathe Self: 7 Upper Body Dressin Lower Body Dressin On/Off Footwear: 7 Toileting Hygiene: 7 PM&R Allergy/Meds/Data Review Allergies Coded Allergies: No Known Drug Allergies (Unverified , 08/13/16) Home Medications Scheduled Aspirin (Aspirin EC), 81 MG PO DAILY, (Reported) Atorvastatin Calcium (Atorvastatin Calcium), 40 MG PO DAILY, (Reported) Carvedilol (Carvedilol), 3.125 MG PO BID, (Reported) Fluticasone/Salmeterol (Advair 250-50 Diskus), 1 PUFF IH BID, (Reported) Losartan Potassium (Losartan Potassium), 50 MG PO DAILY, (Reported) Montelukast Sodium (Montelukast Sodium), 10 MG PO HS, (Reported) Scheduled PRN Acetaminophen (Tylenol Extra Strength), 500-1,000 MG PO Q4H PRN for PAIN-MILD (1-4), (Reported) Albuterol Sulfate (Ventolin Hfa), 2 PUFF INH QID PRN for SHORTNESS OF BREATH, (Reported) Diphenhydramine HCl (Benadryl), 25-50 MG PO HS PRN for ALLERGIES, (Reported) Famotidine (Famotidine), 20 MG PO DAILY PRN for HEARTBURN, (Reported) Hydrocodone/Acetaminophen (Hydrocodone-Acetamin 5-325 mg), 1-2 TAB PO Q4H PRN for PAIN-MODERATE (5-7), (Reported) Ibuprofen (Advil), 400 MG PO TID PRN for PAIN-MILD (1-4), (Reported) Ipratropium [place] (Ipratropium [place]), 2 SPRAYS NS QID PRN for CONGESTION, (Reported) Discontinued Medications Cetirizine HCl (Cetirizine HCl), 10 MG PO DAILY, (Reported) Discontinued Reason: No Longer Taking Hydrocodone Bit/Acetaminophen (Hydrocodone/Acetaminophen 5/325mg Tablet), 1-2 TAB PO Q4H PRN for PAIN-MODERATE (5-7) Discontinued Reason: No Longer Taking Tramadol HCl (Tramadol HCl), 50 MG PO Q8H PRN for PAIN-MODERATE (5-7), (Reported) Discontinued Reason: No Longer Taking Current Medications Current Medications Reviewed Laboratory Data Laboratory Tests 07/05/19 13:14: Lactic Acid Level 3.64*H 07/05/19 14:21: Sodium Level 131L, Potassium Level 3.3L, Chloride Level 100, Carbon Dioxide Level 21, Anion Gap 10, Blood Urea Nitrogen 13, Creatinine 0.85, Estimat Glomerular Filtration Rate > 60, BUN/Creatinine Ratio 15, Glucose Level 143H, Calcium Level 8.4L Review of Systems Constitutional: see HPI, malaise, weakness Respiratory: cough, dyspnea on exertion Cardiovascular: no symptoms reported, chest pain Gastrointestinal: constipation Genitourinary: no symptoms reported Musculoskeletal: back pain, joint pain Psychiatric/Neurological: No Symptoms Reported All Other Systems Reviewed Negative Unless Noted: Yes Physical Exam Physical Exam Vital Signs Vital Signs - First Documented 07/05/19 10:00 Temp 36.5 Pulse 86 Resp 20 B/P (MAP) 151/72 (98) Pulse Ox 97 O2 Delivery Room Air Capillary Refill : Height, Weight, BMI Height: 5'10.00" Weight: 237lbs. 0.0oz. 107.776045la; 37.98 BMI Method:Stated General Appearance: WD/WN, Chronically ill, Mild Distress, Obese Eyes: Bilateral Eye Normal Inspection, Bilateral Eye PERRL HEENT: PERRL/EOMI, Normal ENT Inspection, Pharynx Normal Neck: Full Range of Motion, Normal Inspection, Non Tender, Supple, Carotid Bruit Respiratory: Chest Non Tender, No Accessory Muscle Use, No Respiratory Distress, Decreased Breath Sounds Cardiovascular: Regular Rate, Rhythm, No Edema, No Gallop, No JVD, No Murmur, Normal Peripheral Pulses Gastrointestinal: Normal Bowel Sounds, No Organomegaly, No Pulsatile Mass, Non Tender, Soft Back: Decreased Range of Motion, Muscle Spasm, Vertebral Tenderness Extremity: Normal Capillary Refill, Normal Inspection, Normal Range of Motion, Non Tender, No Calf Tenderness, No Pedal Edema Neurologic/Psychiatric: Alert, Oriented x3, No Motor/Sensory Deficits, Normal Mood/Affect, hose coupling 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 II-XII Norm as Tested, Motor Weakness (lower legs) Skin: Normal Color, Warm/Dry Lymphatic: No Adenopathy PM&R Medical Assessment & Plan REHAB/MEDICAL ASSESSMENT AND PLAN: REHAB IMPAIRMENT GROUP: Lumbar spine with radiculopathy ETIOLOGIC DIAGNOSIS: Lumbar spine with radiculopathy The comorbidities that impact the patients function and/or functional outcome by: Acute pneumonia, sepsis, constipation, non-compliance REHAB PLAN: The patient is being admitted to our comprehensive inpatient rehabilitation facility and can tolerate the intensity of service consisting of at least: 180 minutes of therapy a day, 5 out of 7 days a week Rehab treatment will consist of: PT and OT will focus on increasing ROM of the spine and working muscle to support spine in recovery status from surgery The patient/family has a good understanding of our discharge process and will benefit from an interdisciplinary inpatient rehabilitation program. The patient has potential to make improvement and is in need of at least two of the following multidisciplinary therapies including but not limited to physical, occupational, speech, and prosthetics and orthotics. Additionally the patient will need services from respiratory, nutritional services, wound care, psychology, etc. (Customize this to each patient). Given the patients complex condition and risk of further medical complications, rehabilitation services cannot be safely or effectively provided at a lower level of care such as a intermediate facility. BARRIERS TO DISCHARGE: Acute PNA and weakened state with non-compliance ESTIMATED LOS: 10 days DISPOSITION: Home RELEVANT CHANGES SINCE PREADMISSION SCREENING: I have compared the patients medical and functional status at the time of the preadmission screening and there are: no changes PROGNOSIS: Good REHABILITATION GOALS: 1. Regain muscle strength and ambulatory ability in order to return home All the above goals were reviewed with the patient and he/she is in agreement. By signing this document, I acknowledge that I have personally performed a full physical examination on this patient within 24 hours of admission to this inpatient rehabilitation facility and have determined the patient to be able to tolerate the above course of treatment at an intensive level for a reasonable period of time. I will be completing a detailed individualized Plan of Care for this patient by day #4 of the patients stay based upon the Preadmission Screen, the Post-Admission Evaluation, and the therapy evaluations. Admission Dx/Comorbidities: (1) Stenosis, spinal, lumbar ICD Codes: M48.061 - Spinal stenosis, lumbar region without neurogenic claudication (2) Coronary artery disease Status: Acute (3) Pneumonia Status: Acute ICD Codes: J18.9 - Pneumonia, unspecified organism (4) Lumbar radiculopathy ICD Codes: M54.16 - Radiculopathy, lumbar region (5) Sepsis ICD Codes: A41.9 - Sepsis, unspecified organism (6) Leukocytosis ICD Codes: D72.829 - Elevated white blood cell count, unspecified (7) Non-compliance ICD Codes: Z91.19 - Patient's noncompliance with other medical treatment and regimen (8) Constipation ICD Codes: K59.00 - Constipation, unspecified (9) Hypertension ICD Codes: I10 - Essential (primary) hypertension (10) DIONNE treated with BiPAP ICD Codes: G47.33 - Obstructive sleep apnea (adult) (pediatric) (11) Lactic acid acidosis ICD Codes: E87.2 - Acidosis Assessment and Plan Assess & Plan/Chief Complaint Assessment: Lumbar stenosis with radiculopathy post op with severe debility PNA acute Sepsis DIONNE on biPAP HTN CAD Plan: IRF protocol but slow process 25/12 due to PNA and severe debility BM regimen Patient refuses a lot of meds and interventions AYDE FRANCO DO Jul 05, 2019 15:06
--- NOTE | 2019-07-05 15:26 | NUR ---
DR. APARICIO HERE TO SEE PATIENT. UPDATES GIVEN. ORDERS FOR NS BOLUS- 1000MLS OVER 1 HOUR. TELEMETRY AND Q4 VITALS.
[2019-07-05] MEDS ORDERED: NS IV 1000 ML 1,000 ML IV SCH (15:30)
[2019-07-05 15:37] VITALS: BP 126/77
[2019-07-05] MEDS: CEFEPIME INJECTION 2,000 MG in WATER (STERILE) FOR INJECTION 20 ML IV SCH (17:53)
--- NOTE | 2019-07-05 18:14 | NUR ---
OK TO DC ABG PER DR. FRANCO SINCE PATIENT IS REFUSING.
[2019-07-05] MEDS ORDERED: PATIENT MAY USE OWN MED,SINGLE MED PO SCH (18:15)
--- NOTE | 2019-07-05 18:47 | NUR ---
REPEAT LACTIC ACID 1.2.
[2019-07-05 20:00] VITALS: BP 128/74
[2019-07-05] MEDS: HYDROcodone/APAP 5 MG/325 MG (LORTAB) TAB PO PRN (20:58)
[2019-07-05] MEDS: MONTELUKAST 10 MG (SINGULAIR) TAB PO SCH (20:58)
[2019-07-05] MEDS: FAMOTIDINE 20 MG (PEPCID) TABLET PO SCH (20:58)
[2019-07-05] MEDS: CARVEDILOL 3.125 MG (COREG) TABLET PO SCH (20:58)
[2019-07-05] MEDS: SENNA W/DOCUSATE (SENOKOT S) TABLET PO SCH (20:59)
[2019-07-05] MEDS: polyethylene glycoL POWDER 17 GM (MIRALAX) PACK PO SCH (20:59)
[2019-07-05] MEDS: DOCUSATE SODIUM 100 MG (COLACE) CAP PO SCH (20:59)
[2019-07-06 00:21] VITALS: BP 126/61
--- NOTE | 2019-07-06 01:54 | NUR ---
DRESSING TO DORSAL INCISION CHANGED. EXISTING DRESSING ROLLED UP AT INFERIOR ASPECT. NEW DRESSING TIMED, DATED, AND INITIALED BY THIS RN.
[2019-07-06] MEDS: NS IV 1000 ML 1,000 ML IV SCH ×2 (02:30→03:25)
[2019-07-06 04:09] VITALS: BP 150/76
[2019-07-06 04:25] LABS: BASOPHILS % (AUTO) 0 % (0-10); EOSINOPHILS # (AUTO) 0.1 10^3/uL (0.0-0.3); EOSINOPHILS % (AUTO) 1 % (0-10); HEMATOCRIT 29 % (40-54); LYMPHOCYTES # (AUTO) 1.2 X 10^3 (1.0-4.0); LYMPHOCYTES % (AUTO) 11 % (12-44); MEAN CORPUSCULAR HEMOGLOBIN 33 PG (25-34); MEAN CORPUSCULAR HGB CONC 35 G/DL (32-36); MEAN CORPUSCULAR VOLUME 96 FL (80-99); MEAN PLATELET VOLUME 9.2 FL (7.4-10.4); MONOCYTES # (AUTO) 1.3 X 10^3 (0.0-1.0); MONOCYTES % (AUTO) 12 % (0-12); NEUTROPHILS # (AUTO) 8.1 X 10^3 (1.8-7.8); NEUTROPHILS % (AUTO) 76 % (42-75); PLATELET COUNT 256 10^3/uL (130-400); WHITE BLOOD COUNT 10.7 10^3/uL (4.3-11.0)
[2019-07-06 04:51] LABS: ALANINE AMINOTRANSFERASE 22 U/L (0-55); ALKALINE PHOSPHATASE 55 U/L (40-136); BILIRUBIN,TOTAL 0.8 MG/DL (0.1-1.0); BUN/CREATININE RATIO 13; CALCIUM 7.7 MG/DL (8.5-10.1); CARBON DIOXIDE 19 MMOL/L (21-32); CHLORIDE 105 MMOL/L (98-107); CREATININE SERUM 0.71 MG/DL (0.60-1.30); GFR ESTIMATED > 60; GLUCOSE 131 MG/DL (70-105); MAGNESIUM 2.1 MG/DL (1.6-2.4); PHOSPHORUS 1.8 MG/DL (2.3-4.7); POTASSIUM 3.3 MMOL/L (3.6-5.0); SODIUM 132 MMOL/L (135-145); TOTAL PROTEIN 5.5 GM/DL (6.4-8.2)
--- NOTE | 2019-07-06 05:06 | Pulmonary Progress Note ---
Subjective Time Seen by a Provider: 05:03 Sepsis Event Evaluation Height, Weight, BMI Height: 5'10.00" Weight: 237lbs. 0.0oz. [id number]; 37.98 BMI Method:Stated Focused Exam Lactate Level 07/05/19 13:14: Lactic Acid Level 3.64*H 07/05/19 15:14: Lactic Acid Level 1.20 Exam Exam Vital Signs Date Time Temp Pulse Resp B/P (MAP) Pulse Ox O2 Delivery O2 Flow Rate FiO2 07/06/19 04:09 36.5 80 20 150/76 (100) 94 Room Air 07/06/19 01:00 68 07/06/19 00:21 36.4 77 22 126/61 (82) 96 Room Air 07/05/19 21:00 Room Air 07/05/19 20:00 37.1 82 16 128/74 (92) 96 Room Air 07/05/19 19:00 94 07/05/19 17:07 90 07/05/19 15:37 37.6 85 18 126/77 (93) 96 Room Air 07/05/19 11:47 Room Air 07/05/19 10:16 36.5 86 20 151/72 97 Room Air 07/05/19 10:00 36.5 86 20 151/72 (98) 97 Room Air I & O 07/06/19 07:00 Intake Total 2777.5 ml Balance 2777.5 ml Height & Weight Height: 5'10.00" Weight: 237lbs. 0.0oz. 107.257180xo; 37.98 BMI Method:Stated General Appearance: WD/WN, Chronically ill, Mild Distress, Obese HEENT: PERRL/EOMI, Normal ENT Inspection, Pharynx Normal Neck: Full Range of Motion, Normal Inspection, Non Tender, Supple, Carotid Bruit Respiratory: Chest Non Tender, No Accessory Muscle Use, No Respiratory Distress, Decreased Breath Sounds Cardiovascular: Regular Rate, Rhythm, No Edema, No Gallop, No JVD, No Murmur, Normal Peripheral Pulses Capillary Refill: Less Than 3 Seconds Extremity: Normal Capillary Refill, Normal Inspection, Normal Range of Motion, Non Tender, No Calf Tenderness, No Pedal Edema Neurologic/Psychiatric: Alert, Oriented x3, No Motor/Sensory Deficits, Normal Mood/Affect, conference specialist II-XII Norm as Tested, Motor Weakness (lower legs) Skin: Normal Color, Warm/Dry Lymphatic: No Adenopathy Results Lab Laboratory Tests 07/05/19 14:21 07/06/19 04:22 Assessment/Plan Assessment/Plan Severe COPD -Duoneb -Oxygen -Monitor -CXR pending -Labs reviewed [place] -Continue Abx for now -Await cultures Metabolic lactic acidosis -- now resolved -Monitor -Will KVO IVF for now Hypokalemia/hypophos -replace Morbid obesity CAD Debility History of LBP with resultant need for surgery. s/p Fusion L2-5 with laminectomy VENKAT APARICIO DO Jul 06, 2019 05:06
[2019-07-06] MEDS: CEFEPIME INJECTION 2,000 MG in WATER (STERILE) FOR INJECTION 20 ML IV SCH ×2 (05:24→18:45)
[2019-07-06] MEDS: MULTIVIT W/MINERALS TAB (THERAGRAN M) PO SCH (06:01)
[2019-07-06] MEDS: HYDROcodone/APAP 5 MG/325 MG (LORTAB) TAB PO PRN ×4 (06:44→23:36)
[2019-07-06] MEDS ORDERED: POTASSIUM PHOSPHATE INJ 30 MM in NS (IVPB) 250 ML IV ONE (08:21)
--- NOTE | 2019-07-06 09:00 | PM&R Progress Note ---
Subjective HPI/CC On Admission Date Seen by Provider: Jul 06, 2019 Time Seen by Provider: 09:00 Subjective/Events-last exam Pt doing better Lactic acid now normal after IV fluids Replacing potassium and phosphorus Refusing all breathing treatments Will restart inhalers that he takes at home and that includes Advair Bowels not moving yet so will give multiple meds to get that started Overall stable but slow progress Conferred with RN Reviewed therapy notes Checked meds and labs Review of Systems General: Fatigue Pulmonary: Dyspnea Gastrointestinal: Constipation Musculoskeletal: back pain Focused Exam Lactate Level 07/05/19 13:14: Lactic Acid Level 3.64*H 07/05/19 15:14: Lactic Acid Level 1.20 Objective Exam Vital Signs Vital Signs Date Time Temp Pulse Resp B/P (MAP) Pulse Ox O2 Delivery O2 Flow Rate FiO2 07/07/19 09:00 Room Air 07/07/19 07:25 94 07/07/19 05:05 36.7 65 18 100/51 (67) Capillary Refill : Less Than 3 Seconds General Appearance: WD/WN, Chronically ill, Mild Distress, Obese HEENT: PERRL/EOMI, Normal ENT Inspection, Pharynx Normal Neck: Full Range of Motion, Normal Inspection, Non Tender, Supple, Carotid Bruit Respiratory: Chest Non Tender, No Accessory Muscle Use, No Respiratory Distress, Decreased Breath Sounds Cardiovascular: Regular Rate, Rhythm, No Edema, No Gallop, No JVD, No Murmur, Normal Peripheral Pulses Gastrointestinal: Normal Bowel Sounds, No Organomegaly, No Pulsatile Mass, Non Tender, Soft Back: Decreased Range of Motion, Muscle Spasm, Vertebral Tenderness Extremity: Normal Capillary Refill, Normal Inspection, Normal Range of Motion, Non Tender, No Calf Tenderness, No Pedal Edema Neurologic/Psychiatric: Alert, Oriented x3, No Motor/Sensory Deficits, Normal Mood/Affect, manager of patient II-XII Norm as Tested, Motor Weakness (lower legs) Skin: Normal Color, Warm/Dry Lymphatic: No Adenopathy Results/Procedures Lab Laboratory Tests 07/07/19 06:10 Patient resulted labs reviewed. FIM Transfers Therapy Code Descriptions/Definitions Functional [place] Measure: 0=Not Assessed/NA 4=Minimal Assistance 1=Total Assistance 5=Supervision or Setup 2=Maximal Assistance 6=Modified [place] 3=Moderate Assistance 7=Complete IndependenceSCALE: Activities may be completed with or without assistive devices. 3-Qibmgmhhim-akkfxej completes the activity by him/herself with no assistance from a helper. 5-Set-up or Clean-up Assistance-helper sets up or cleans up; patient completes activity. [place] assists only prior to or following the activity. 4-Supervision or Touching Assistance-helper provides verbal cues and/or touching/steadying and/or contact guard assistance as patient completes activity. Assistance may be provided throughout the activity or intermittently. 3-Partial/Moderate Assistance-helper does LESS THAN HALF the effort. [place] lifts, holds or supports trunk or limbs, but provides less than half the effort. 2-Substantial/Maximal Assistance-helper does MORE THAN HALF the effort. [place] lifts or holds trunk or limbs and provides more than half the effort. 8-Bcbvuoayi-qcwdja does ALL the effort. Patient does none of the effort to complete the activity. Or, the assistance of 2 or more helpers is required for the patient to complete the activity. If activity was not attempted, code reason: 7-Patient Refused. 9-Not Applicable-not attempted and the patient did not perform the activity before the current illness, exacerbation or injury. 10-Not Attempted due to Environmental Limitations-(lack of equipment, weather restraints, etc.). 88-Not Attempted due to Medical Conditions or Safety Concerns. Roll Left to Right (QC): 2 Sit to Lying (QC): 1 (assist of 2 to lie down. ) Sit to Stand (QC): 3 (min assist to stand with skilled cues for sequencing and hand placement. ) Chair/Zta-vi-Pqqtu Xfer(QC): 3 (min assist for balance and safety with use of FWW) Car Transfer (QC): 88 (pt unsafe to attempt this date. ) Gait Training Does the Patient Walk?: Yes Walk 10 feet (QC): 3 (min assist for balance and safety with use of FWW) Walk 50 ft with 2 Turns(QC): 3 Walk 150 ft (QC): 88 Walking 10ft/uneven surface-QC: 88 Gait Assistive Device: FWW Wheelchair Training Does the Pt Use a Wheelchair?: No Stair Training 1 Step (curb) (QC): 88 4 Steps (QC): 88 12 Steps (QC): 88 Balance Picking up an Object (QC): 88 (contraindicated with recent back surgery.) ADL-Treatment Eating (QC): 6 Oral Hygiene (QC): 7 Shower/Bathe Self (QC): 7 Upper Body Dressing (QC): 7 Lower Body Dressing (QC): 7 On/Off Footwear (QC): 7 Toileting Hygiene (QC): 7 Assessment/Plan Assessment and Plan Assess & Plan/Chief Complaint Assessment: Lumbar stenosis with radiculopathy post op with severe debility PNA acute Sepsis DIONNE on biPAP HTN CAD Postop constipation Plan: IRF protocol but slow process 25/12 due to PNA and severe debility BM regimen Patient refuses a lot of meds and interventions IV antibiotics (1) Stenosis, spinal, lumbar (2) Coronary artery disease Status: Acute (3) Pneumonia Status: Acute (4) Lumbar radiculopathy (5) Sepsis (6) Leukocytosis (7) Non-compliance (8) Constipation (9) Hypertension (10) DIONNE treated with BiPAP (11) Lactic acid acidosis AYDE FRANCO DO Jul 06, 2019 09:00
--- NOTE | 2019-07-06 09:58 | Occupational Ther Daily Note ---
OT Current Status-Daily Note Subjective Pt sitting EOB, reports 6/10 pain in back. Pt requires encouragement to participate this am. Education provided regarding rehab plan and expectations. Pt states understanding. ADL-Treatment Pt sitting EOB, assist to don back brace. Pt sit to stand with CGA. Gait to restroom with slow pace using FWW. Assist to manage IV pole. Pt stood at toilet to urinate with CGA for safety. Pt refused shower this morning, but agrees to sponge bath which was completed while seated in chair. Pt doffed gown without assist. Upper body bathing completed with SBA and increased time. Assist to wash back. Pt able to wash layne area and upper legs. Unable to wash lower legs/feet without assist secondary to back precautions. Educated pt on use of long handled sponge for lower body bathing. Pt declined to don shirt this morning secondary to IV and telemetry. Assist to don hospital gown secondary to IV. Pt unable to don lower body clothing without adaptive equipment secondary to precautions. Pt instructed in LE dressing technique with AE. Pt used physician asst to thread bilateral LE into underwear with minimal assistance. Stood with min assist for balance during pant hike. Pt declined to don pants today. Pt requires total assist for donning/doffing socks without AE. Pt able to don socks with mod assist using sock aid. Pt requires increased time for all ADL activities. Pt takes frequent rest breaks throughout treatment secondary to fatigue and pain. Pt requires cues for back precautions throughout ADL completion. Pt refused oral care this morning, states he will complete at another time. Pt transferred chair to EOB with CGA using FWW. Pt requests to remain seated EOB after session. All needs met. Therapy Code Descriptions/Definitions Functional [place] Measure: 0=Not Assessed/NA 4=Minimal Assistance 1=Total Assistance 5=Supervision or Setup 2=Maximal Assistance 6=Modified [place] 3=Moderate Assistance 7=Complete IndependenceSCALE: Activities may be completed with or without assistive devices. 2-Cyutujxdnu-ftgxrnn completes the activity by him/herself with no assistance from a helper. 5-Set-up or Clean-up Assistance-helper sets up or cleans up; patient completes activity. [place] assists only prior to or following the activity. 4-Supervision or Touching Assistance-helper provides verbal cues and/or touching/steadying and/or contact guard assistance as patient completes activity. Assistance may be provided throughout the activity or intermittently. 3-Partial/Moderate Assistance-helper does LESS THAN HALF the effort. [place] lifts, holds or supports trunk or limbs, but provides less than half the effort. 2-Substantial/Maximal Assistance-helper does MORE THAN HALF the effort. [place] lifts or holds trunk or limbs and provides more than half the effort. 1-Jkszhaqje-waqssy does ALL the effort. Patient does none of the effort to complete the activity. Or, the assistance of 2 or more helpers is required for the patient to complete the activity. If activity was not attempted, code reason: 7-Patient Refused. 9-Not Applicable-not attempted and the patient did not perform the activity before the current illness, exacerbation or injury. 10-Not Attempted due to Environmental Limitations-(lack of equipment, weather restraints, etc.). 88-Not Attempted due to Medical Conditions or Safety Concerns. Oral Hygiene (QC): 7 Shower/Bathe Self (QC): 3 Upper Body Dressing (QC): 7 Lower Body Dressing (QC): 2 On/Off Footwear: 2 Toileting Hygiene (QC): 4 Education OT Patient Education: Modified ADL techniques, Safety issues Teaching Recipient: Patient Teaching Methods: Discussion Response to Teaching: Verbalize Understanding, Reinforcement Needed OT Short Term Goals Short Term Goals Time Frame: Jul 12, 2019 Eatin Oral hygiene: 6 Toileting hygiene: 3 Shower/bathe self: 3 Upper body dressin Lower body dressin Putting on/taking off footwear: 3 OT Care Home Goals Care Home Goals Time Frame: Jul 19, 2019 Eating (QC): 6 Oral Hygiene (QC): 6 Toileting Hygiene (QC): 6 Shower/Bathe Self (QC): 6 Upper Body Dressing (QC): 6 Lower Body Dressing (QC): 6 On/Off Footwear (QC): 6 Additional Goals: 1-Demonstrate ADL Tasks, 2-Verbalize Understanding, 3- ImproveStrength/Melissa 1=Demonstrate adherence to instructed precautions during ADL tasks. 2=Patient will verbalize/demonstrate understanding of assistive devices/modifications for ADL. 3=Patient will improve strength/tolerance for activity to enable patient to perform ADL's. OT Education/Plan Discharge Recommendations Plan/Recommendations: Continue POC Treatment Plan/Plan of Care Patient would benefit from OT for education, treatment and training to promote independence in ADL's, mobility, safety and/or upper extremity function for ADL's. Plan of Care: ADL Retraining, Caregiver Training, Concurrent Therapy, Functional Mobility, Group Exercise/Act as Ind, Orthotic Fitting/Training, UE Funct Exercise/Act Treatment Duration: Jul 19, 2019 Frequency: At least 5 of 7 days/Wk (IRF) Estimated Hrs Per Day: 1.5 hours per day Agreement: Yes Rehab Potential: Good Time/GCodes Start Time: 08:15 Stop Time: 09:45 Total Time Billed (hr/min): 90 Billed Treatment Time 1 visit, ADLx6(90minutes) PADMINI OSPINA OT Jul 06, 2019 09:58
[2019-07-06] MEDS ORDERED: RT-ALBUTEROL SULF 2.5 MG/3 ML PRE-MIX VIAL INH PRN (10:15)
[2019-07-06] MEDS ORDERED: PATIENT MAY USE OWN MED,SINGLE MED PO SCH ×2 (10:15)
--- NOTE | 2019-07-06 10:27 | Progress Note ---
[facility] 07/06/19 1027: Progress Note Con is a 73 year old male that presented to the ED after a fall 4 days s/p lumbar fusion for stenosis. Con has had a few strange interactions and has displayed a few inconsistencies in speech since he arrived. He has complemented the staff at the hospital several times on how great they are and mentioned that this is the only hospital where he "looks forward to coming to". He is pretty insistent on these comments, however, he consistently denies medications and treatments. He will make negative comments about how he is feeling or about staf f being in the room but quickly follows up to say he was only joking. He has had a consistently flat affect since he has arrived and as stated has been mildly uncooperative. During my time with him he has made comments about preferring to have a clean room over listening to staff talk, he has asked me why our departments don't talk to each other, he stated that if there was a mistake on his chart that someone was "stupid enough to let that mistake make it all the way to the end", yet he continues to excessively complement staff whenever possible. When asked about his mother, he stated she " of meanness" the proceeded to speak fondly of her. Although the interactions are not bizarre in nature and Mr. Martin is alert and there is no suspicion of cognitive defect or decline, delusions or hallucinations, the inconsistencies in his speech and interactions and flat affect as a whole make it reasonable to consider possible psychological concerns that cannot be explained by medication or medical condition and are subclinical in nature. Mr. Martin may benefit from receiving a psychological evaluation for further assessment. NOHEMY FRANCO DO 07/07/19 1237: Supervisory-Addendum Brief Verification & Attestation Participated in pt care: history, MDM, physical Personally performed: exam, history, MDM, supervision of care Care discussed with: Medical Student Procedures: n/a Results interpretation: Verified all documentation Verification and Attestation of Medical Student E/M Service A medical student performed and documented this service in my presence. I reviewed and verified all information documented by the medical student and made modifications to such information, when appropriate. I personally performed the physical exam and medical decision making. Nohemy Franco, Jul 07, 2019,12:37 MIRIAM THAPA MED STUD Jul 06, 2019 10:27 NOHEMY FRANCO DO Jul 07, 2019 12:37
[2019-07-06] MEDS: DOCUSATE SODIUM 100 MG (COLACE) CAP PO SCH ×2 (10:28→21:11)
[2019-07-06] MEDS: FAMOTIDINE 20 MG (PEPCID) TABLET PO SCH ×2 (10:29→21:11)
[2019-07-06] MEDS: CARVEDILOL 3.125 MG (COREG) TABLET PO SCH ×2 (10:29→21:10)
[2019-07-06] MEDS: SENNA W/DOCUSATE (SENOKOT S) TABLET PO SCH ×2 (10:29→21:11)
[2019-07-06] MEDS: LORATADINE (CLARITIN) 10 MG TAB PO SCH (10:29)
[2019-07-06] MEDS: polyethylene glycoL POWDER 17 GM (MIRALAX) PACK PO SCH ×2 (10:33→21:11)
[2019-07-06] MEDS: LOSARTAN 50 MG (COZAAR) TAB PO SCH (10:33)
[2019-07-06] MEDS ORDERED: TROUGH ORDER-PHARMACY XX NR (11:00)
[2019-07-06] MEDS: FLEET ENEMA ADULT 1 EA BTL PR PRN (11:54)
--- NOTE | 2019-07-06 11:57 | Physical Therapy Daily Note ---
PT Daily Note-Current Subjective Pt. in bed and states he is having some significant pain today, at 8/10 in his back when he attempts to move or TRF. Pt. also shares that he has not had a BM in several days. Pain Numeric Pain Scale: 8 Location: Medial Location Body Site: Back Pain Description: Stabbing Appearance very distended abdomen, unable to affix the back brace around his abdomen which had fit yesterday and now will not go around the pt. in sit or stand even with assist of 2. Nurse and Dr blackwell round and it is discussed that perhaps more aggressive modes are needed to propel a BM as pt. is likely having increased back pain secondary to distended abdomen. Mental Status Patient Orientation: Normal For Age Attachments: Other-See Comments (attempted back brace), IV Transfers SCALE: Activities may be completed with or without assistive devices. 5-Mxbitsbuyz-uckonvv completes the activity by him/herself with no assistance from a helper. 5-Set-up or Clean-up Assistance-helper sets up or cleans up; patient completes activity. [place] assists only prior to or following the activity. 4-Supervision or Touching Assistance-helper provides verbal cues and/or touching/steadying and/or contact guard assistance as patient completes activity. Assistance may be provided throughout the activity or intermittently. 3-Partial/Moderate Assistance-helper does LESS THAN HALF the effort. [place] lifts, holds or supports trunk or limbs, but provides less than half the effort. 2-Substantial/Maximal Assistance-helper does MORE THAN HALF the effort. [place] lifts or holds trunk or limbs and provides more than half the effort. 4-Xbguyesxg-xsgltw does ALL the effort. Patient does none of the effort to complete the activity. Or, the assistance of 2 or more helpers is required for the patient to complete the activity. If activity was not attempted, code reason: 7-Patient Refused. 9-Not Applicable-not attempted and the patient did not perform the activity before the current illness, exacerbation or injury. 10-Not Attempted due to Environmental Limitations-(lack of equipment, weather restraints, etc.). 88-Not Attempted due to Medical Conditions or Safety Concerns. Roll Left & Right (QC): 3 Sit to Lying (QC): 3 Lying to Sitting/Side of Bed(Q: 3 Sit to Stand (QC): 4 (with bed height raised) Weight Bearing Right Lower Extremity: Right Full Weight Bearing Left Lower Extremity: Left Full Weight Bearing Gait Training Gait Assistive Device: FWW side stepping only at bedside left to right, gait was limited this date as pt. was having increased pain and was not able to get ordered back brace on Exercises Supine Ex: Ankle pumps, Quad Set, Rolling, Glut sets, Heel Slides, Short Arc Quads, Scooting (pulls self up in bed with bed flat using rails at head of bed), Hip abd/add Supine Reps: 15 Treatments assisted pt. sit to stand several trials while attempting to helder brace to no avail, stood with FWW CGA, pain increases with TRF attempt likely due to abdominal pressure from abdominal distension . pt. assisted back in bed with assist of 2 after Rx to position to left side in prep for enema as pt. has not found relief with oral methods Assessment Current Status: Fair Progress greatly limited functional mobility secondary to pain likely from distended a bdomen PT Short Term Goals Short Term Goals Time Frame: Jul 12, 2019 Sit to lyin Lying to sitting on side of be: 4 Sit to stand: 5 Chair/fnl-yr-inamj transfer: 5 Walk 150 feet: 4 1 step (curb): 4 PT Control Valve Mechanic Goals Control Valve Mechanic Goals PT Control Valve Mechanic Goals Time Frame: Jul 20, 2019 Roll Left & Right (QC): 6 Sit to Lying (QC): 6 Lying-Sitting on Side/Bed(QC): 6 Sit to Stand (QC): 6 Chair/Gmv-iu-Jsiri Xfer(QC): 6 Toilet Transfer (QC): 6 Car Transfer (QC): 5 Does the Patient Walk: Yes Walk 10 feet (QC): 6 Walk 50ft with 2 Turns (QC): 6 Walk 150 ft (QC): 6 Walking 10ft on Uneven Surface: 6 1 Step (curb) (QC): 6 4 Steps (QC): 6 12 Steps (QC): 9 Picking up an Object (QC): 88 Does the Pt use WC or Scooter?: No PT Plan Treatment/Plan Treatment Plan: Continue Plan of Care Treatment Plan: Bed Mobility, Education, Functional Activity Melissa, Functional Strength, Group Therapy, Gait, Safety, Therapeutic Exercise, Transfers Treatment Duration: Jul 20, 2019 Frequency: Modified Program (IRF) (/ per physician) Estimated Hrs Per Day: 1.5 hours per day (1 to 1.5) Patient and/or Family Agrees t: Yes Safety Risks/Education Patient Education: Transfer Techniques, Correct Positioning, Disease Process, Safety Issues Teaching Recipient: Patient Teaching Methods: Demonstration, Discussion Response to Teaching: Verbalize Understanding, Return Demonstration, Reinforcement Needed Time/GCodes Time In: 1045 Time Out: 1200 Total Billed Treatment Time: 75 Total Billed Treatment 1,FA55m,EX20m JAYNE SHEPHERD APARTMENT HOUSE MANAGER Jul 06, 2019 11:57
[2019-07-06] MEDS: VANCOMYCIN 1,750 MG/NS 500 ML IVPB IV SCH ×4 (13:00→23:01)
--- NOTE | 2019-07-06 13:32 | Consultation-Cardiology ---
HPI-Cardiology Cardiology Consultation Date of Consultation 07/06/19 Date of Admission Time Seen by Provider: 11:00 Indication: coronary artery disease HPI 73 years old gentleman with generalized weakness, had back surgery, still unable to support himself, admitted for rehabilitation. He has shortness of breath, no chest pain. No palpitation. Reporting some improvement in his symptoms Home Medications & Allergies Allergies: Coded Allergies: No Known Drug Allergies (Unverified , 08/13/16) Home Medication List Reviewed: Yes IHZ-Wboeml-Mjduzb Hx Patient Social History Marital Status: Employed/Student: retired Alcohol Use: Occasionally Uses Smoking Status: Former Smoker Type Used: Cigarettes 2nd Hand Smoke Exposure: No Recent Foreign Travel: No Recent Infectious Disease Expo: No Recent Hopitalizations: No Immunizations Up To Date Tetanus Booster (TDap): More than 5yrs Date of Pneumonia Vaccine: Mar 15, 2016 Date of Influenza Vaccine: Apr 13, 2017 Past Medical History Discussed below Family Medical History Family History: Abdominal aortic aneurysm 03 FATHER (DOESN'T KNOW MUCH ABOUT FAMILY HX) No Family History of: Cancer of colon Review of Systems-General Review of Systems Constitutional: see HPI, malaise, weakness EENTM: see HPI, no symptoms reported Respiratory: see HPI, cough, dyspnea on exertion, short of breath Cardiovascular: no symptoms reported, chest pain, edema Gastrointestinal: see HPI, constipation Genitourinary: no symptoms reported Musculoskeletal: see HPI, back pain, joint pain Skin: no symptoms reported, see HPI Psychiatric/Neurological: No Symptoms Reported, See HPI All Other Systems Reviewed Negative Unless Noted: Yes Reviewed Test Results Reviewed Test Results Lab Laboratory Tests Test 07/05/19 14:21 07/05/19 15:14 07/06/19 04:22 07/06/19 11:00 Range/Units Sodium Level 131 L 132 L 135-145 MMOL/L Potassium Level 3.3 L 3.3 L 3.6-5.0 MMOL/L Chloride Level 100 105 98-107 MMOL/L Carbon Dioxide Level 21 19 L 21-32 MMOL/L Anion Gap 10 8 5-14 MMOL/L Blood Urea Nitrogen 13 9 7-18 MG/DL Creatinine 0.85 0.71 0.60-1.30 MG/DL Estimat Glomerular Filtration Rate > 60 > 60 BUN/Creatinine Ratio 15 13 Glucose Level 143 H 131 H 70-105 MG/DL Calcium Level 8.4 L 7.7 L 8.5-10.1 MG/DL Lactic Acid Level 1.20 0.50-2.00 MMOL/L White Blood Count 10.7 4.3-11.0 10^3/uL Red Blood Count 3.00 L 4.35-5.85 10^6/uL Hemoglobin 10.0 L 13.3-17.7 G/DL Hematocrit 29 L 40-54 % Mean Corpuscular Volume 96 80-99 FL Mean Corpuscular Hemoglobin 33 25-34 PG Mean Corpuscular Hemoglobin Concent 35 32-36 G/DL Red Cell Distribution Width 13.0 10.0-14.5 % Platelet Count 256 130-400 10^3/uL Mean Platelet Volume 9.2 7.4-10.4 FL Neutrophils (%) (Auto) 76 H 42-75 % Lymphocytes (%) (Auto) 11 L 12-44 % Monocytes (%) (Auto) 12 0-12 % Eosinophils (%) (Auto) 1 0-10 % Basophils (%) (Auto) 0 0-10 % Neutrophils # (Auto) 8.1 H 1.8-7.8 X 10^3 Lymphocytes # (Auto) 1.2 1.0-4.0 X 10^3 Monocytes # (Auto) 1.3 H 0.0-1.0 X 10^3 Eosinophils # (Auto) 0.1 0.0-0.3 10^3/uL Basophils # (Auto) 0.0 0.0-0.1 10^3/uL Corrected Calcium 8.5 8.5-10.1 MG/DL Phosphorus Level 1.8 L 2.3-4.7 MG/DL Magnesium Level 2.1 1.6-2.4 MG/DL Total Bilirubin 0.8 0.1-1.0 MG/DL Aspartate Amino Transf (AST/SGOT) 23 5-34 U/L Alanine Aminotransferase (ALT/SGPT) 22 0-55 U/L Alkaline Phosphatase 55 40-136 U/L Total Protein 5.5 L 6.4-8.2 GM/DL Albumin 3.0 L 3.2-4.5 GM/DL Vancomycin Level Trough 14.6 10.0-20.0 UG/ML Physical Exam Physical Exam Vital Signs Vital Signs - First Documented 07/05/19 10:00 Temp 36.5 Pulse 86 Resp 20 B/P (MAP) 151/72 (98) Pulse Ox 97 O2 Delivery Room Air Capillary Refill : Less Than 3 Seconds Height, Weight, BMI Height: 5'10.00" Weight: 237lbs. 0.0oz. 107.855320sl; 37.98 BMI Method:Stated General Appearance: WD/WN, Chronically ill, Mild Distress, Obese Eyes: Bilateral Eye Normal Inspection, Bilateral Eye PERRL HEENT: PERRL/EOMI, Normal ENT Inspection, Pharynx Normal Neck: Full Range of Motion, Normal Inspection, Non Tender, Supple, Carotid Bruit Respiratory: Chest Non Tender, No Accessory Muscle Use, No Respiratory Distress, Decreased Breath Sounds Cardiovascular: Regular Rate, Rhythm, No Edema, No Gallop, No JVD, No Murmur, Normal Peripheral Pulses Gastrointestinal: Normal Bowel Sounds, No Organomegaly, No Pulsatile Mass, Non Tender, Soft Back: Decreased Range of Motion, Muscle Spasm, Vertebral Tenderness Extremity: Normal Capillary Refill, Normal Inspection, Normal Range of Motion, Non Tender, No Calf Tenderness, No Pedal Edema Neurologic/Psychiatric: Alert, Oriented x3, No Motor/Sensory Deficits, Normal Mood/Affect, cell room operator II-XII Norm as Tested, Motor Weakness (lower legs) Skin: Normal Color, Warm/Dry Lymphatic: No Adenopathy A/P-Cardiology Admission Diagnosis Coronary artery disease Debility COPD Hypertension Assessment/Plan Spinal stenosis, had recent surgery, recovering slowly, generalized weakness and debility, receiving physical therapy. COPD, obstructive sleep apnea, shortness of breath on exertion. Status post pneumonia, recovering slowly and improving Coronary artery disease, history of multiple intervention in the past, had a stress test done in May 2019 showing no ischemia or infarction. Normal EF. Continue to monitor Hypertension, restart home medication monitor blood pressure next Hyperlipidemia. Continue to monitor lipids Morbid obesity, BMI 38, receiving physical therapy. Next Electrolyte imbalance, managed by primary care physician Constipation Clinical Quality Measures DVT/VTE Risk/Contraindication: Risk Factor Score Per Nursin RFS Level Per Nursing on Admit: 4+=Very High ADRYAN NAVARRO MD Jul 06, 2019 1:32 pm
--- NOTE | 2019-07-06 13:37 | NUR ---
"RD ASSESSMENT PMHx: COPD; CAD; ID; GERD; hypercholesterolemia PT INTERACTION: Pt was awake and pleasant during nutrition assessment. Pt states current appetite is so-so and has been for the past few days. Note avg PO intake of 87% x2meal, per chart review. Pt states following a regular diet at home, and has no issues with chewing/swallowing food. Pt states no recent issues with n/v at this time. Pt states recent issues with constipation, and that his last BM was 07/06. Note pt currently on bowel regimen of colace BID; senna BID; and miralax BID, per chart review. Pt states no recent wt changes. Note unable to determine recent wt hx, per chart review. ABNORMAL NUTRITION-RELATED LAB VALUES LOW: Na 132; K 3.3l Ca 7.7; phos 1.8; Pro 5.5; alb 3.0 HIGH: glu 131 Est. kcal needs: 2884-9038 kcal | 15-18 kcal/kg Est. Pro needs: 93-117 g Pro | 0.8-1.0 g Pro/kg PES STATEMENT: Given pt PO intake, no nutrition diagnosis at this time (NO-1.1) INTERVENTION: Continue with current diet order of Regular diet. Will continue to follow and reassess as pt needs and status change. MONITOR/EVALUATE: PO Intake; Plan of Care; Hydration Status; Weight Status; Lab Values Jesús Moore, MS, RD, LD"
--- NOTE | 2019-07-06 13:54 | Physical Therapy Daily Note ---
PT Daily Note-Current Subjective Patient in recliner pre tx, agrees to PT, has 6/10 pain in back. Patient has had bowel issues today and would prefer to perform exercises while seated. Appearance Patient in recliner post tx with nurse call, phone, tray, all needs met. Mental Status Patient Orientation: Person, Place, Situation Attachments: IV Transfers SCALE: Activities may be completed with or without assistive devices. 1-Qztfswtube-dmdwmpg completes the activity by him/herself with no assistance from a helper. 5-Set-up or Clean-up Assistance-helper sets up or cleans up; patient completes activity. [place] assists only prior to or following the activity. 4-Supervision or Touching Assistance-helper provides verbal cues and/or touching/steadying and/or contact guard assistance as patient completes activity. Assistance may be provided throughout the activity or intermittently. 3-Partial/Moderate Assistance-helper does LESS THAN HALF the effort. [place] lifts, holds or supports trunk or limbs, but provides less than half the effort. 2-Substantial/Maximal Assistance-helper does MORE THAN HALF the effort. [place] lifts or holds trunk or limbs and provides more than half the effort. 4-Hzdmtaiyl-xmehjc does ALL the effort. Patient does none of the effort to complete the activity. Or, the assistance of 2 or more helpers is required for the patient to complete the activity. If activity was not attempted, code reason: 7-Patient Refused. 9-Not Applicable-not attempted and the patient did not perform the activity before the current illness, exacerbation or injury. 10-Not Attempted due to Environmental Limitations-(lack of equipment, weather restraints, etc.). 88-Not Attempted due to Medical Conditions or Safety Concerns. Weight Bearing Right Lower Extremity: Right Full Weight Bearing Left Lower Extremity: Left Full Weight Bearing Exercises Seated Therapy Exercises: Ankle pumps, Long arc quads, Hip flexion (only 10 times, difficult due to pain and distended abdomen), Hip abd/add Seated Reps: 20 Treatments LE exercise Assessment Current Status: Fair Progress pain with hip flexion PT Short Term Goals Short Term Goals Time Frame: Jul 12, 2019 Sit to lyin Lying to sitting on side of be: 4 Sit to stand: 5 Chair/kbo-ef-wecvj transfer: 5 Walk 150 feet: 4 1 step (curb): 4 PT Labor Mediator Goals Care Home Goals PT Care Home Goals Time Frame: Jul 20, 2019 Roll Left & Right (QC): 6 Sit to Lying (QC): 6 Lying-Sitting on Side/Bed(QC): 6 Sit to Stand (QC): 6 Chair/Nor-dq-Abtox Xfer(QC): 6 Toilet Transfer (QC): 6 Car Transfer (QC): 5 Does the Patient Walk: Yes Walk 10 feet (QC): 6 Walk 50ft with 2 Turns (QC): 6 Walk 150 ft (QC): 6 Walking 10ft on Uneven Surface: 6 1 Step (curb) (QC): 6 4 Steps (QC): 6 12 Steps (QC): 9 Picking up an Object (QC): 88 Does the Pt use WC or Scooter?: No PT Plan Problem List Problem List: Activity Tolerance, Functional Strength, Safety, Balance, Gait, Transfer, Bed Mobility, ROM Treatment/Plan Treatment Plan: Continue Plan of Care Treatment Plan: Bed Mobility, Education, Functional Activity Melissa, Functional Strength, Group Therapy, Gait, Safety, Therapeutic Exercise, Transfers Treatment Duration: Jul 20, 2019 Frequency: Modified Program (IRF) (/ per physician) Estimated Hrs Per Day: 1.5 hours per day (1 to 1.5) Patient and/or Family Agrees t: Yes Safety Risks/Education Patient Education: Correct Positioning, Safety Issues Teaching Recipient: Patient Teaching Methods: Demonstration, Discussion Response to Teaching: Reinforcement Needed Time/GCodes Time In: 1339 Time Out: 1354 Total Billed Treatment Time: 15 Total Billed Treatment 1 visit EX RHONDA ESCALANTE PT Jul 06, 2019 13:54
--- NOTE | 2019-07-06 14:20 | Diagnostic Imaging Report ---
HISTORY: Shortness of breath. TECHNIQUE: Single frontal view of the chest. COMPARISON: 07/05/2019. FINDINGS: Lung volumes are normal. There are chronic-appearing interstitial opacities, may represent fibrotic changes. No new consolidation is seen. There is mild cardiomegaly. No pleural effusion or pneumothorax is seen. IMPRESSION: 1. Mild cardiomegaly. 2. Chronic interstitial opacities, no new consolidation is seen. Dictated by: Dictated on workstation # [id number]
--- NOTE | 2019-07-06 14:22 | NUR ---
CM/SS ADMISSION Patient was admitted to ARU 07/05/19 for Lumbar Spinal Stenosis, post op procedures DLIF/PSF/laminectomy. Patient was IP on Med/Surg unit at [facility] 07/02-07/04/19 and chose to return home, declining care plans for admission to Acute Rehab Unit or [facility] services. Patient was unable to safely or effectively manage his debility in the home environment. Prior to surgery, he resided at home with his spouse, Mica Martin. He was functional within his own limitations with back pain, IADL, ambulating, driving. DME: Has FWW, quad cane, bipap managed through [facility] HME. Will monitor therapy team recommendations for additional DME. PCP: Dr. Juan Bush PRIMARY CONTACT: Spouse, Mica Martin [phone] Patient stated there are no children and no other contacts to be listed. INSURANCE: Medicare, [employer], Plan F PHARMACY: [facility] The purpose of the Weekly Team Conference was discussed and patient displayed understanding. His personal target discharge date is 07/10/19.
[2019-07-06] MEDS: ADVAIR 250 MCG/50 MCG (NON-FORMULARY) IH SCH ×2 (14:35→18:25)
[2019-07-06] MEDS: ALBUTEROL IH PRN (14:39)
[2019-07-06 16:05] VITALS: BP 104/62
[2019-07-06] MEDS: MONTELUKAST 10 MG (SINGULAIR) TAB PO SCH (21:11)
[2019-07-07] MEDS: NS IV 1000 ML 1,000 ML IV SCH (00:51)
[2019-07-07 05:05] VITALS: BP 100/51
[2019-07-07] MEDS: CEFEPIME INJECTION 2,000 MG in WATER (STERILE) FOR INJECTION 20 ML IV SCH ×2 (05:23→18:32)
[2019-07-07] MEDS: MULTIVIT W/MINERALS TAB (THERAGRAN M) PO SCH (05:23)
[2019-07-07] MEDS: HYDROcodone/APAP 5 MG/325 MG (LORTAB) TAB PO PRN ×4 (06:23→21:34)
[2019-07-07 06:26] LABS: BASOPHILS % (AUTO) 0 % (0-10); EOSINOPHILS # (AUTO) 0.4 10^3/uL (0.0-0.3); EOSINOPHILS % (AUTO) 3 % (0-10); HEMATOCRIT 31 % (40-54); HEMOGLOBIN 10.5 G/DL (13.3-17.7); LYMPHOCYTES % (AUTO) 16 % (12-44); MEAN CORPUSCULAR HEMOGLOBIN 33 PG (25-34); MEAN CORPUSCULAR HGB CONC 34 G/DL (32-36); MEAN CORPUSCULAR VOLUME 96 FL (80-99); MEAN PLATELET VOLUME 9.2 FL (7.4-10.4); MONOCYTES # (AUTO) 1.7 X 10^3 (0.0-1.0); MONOCYTES % (AUTO) 13 % (0-12); NEUTROPHILS # (AUTO) 8.9 X 10^3 (1.8-7.8); NEUTROPHILS % (AUTO) 68 % (42-75); PLATELET COUNT 311 10^3/uL (130-400); RED CELL DISTRIBUTION WIDTH 13.6 % (10.0-14.5)
[2019-07-07 06:52] LABS: BUN/CREATININE RATIO 10; CALCIUM 8.1 MG/DL (8.5-10.1); CARBON DIOXIDE 20 MMOL/L (21-32); CHLORIDE 104 MMOL/L (98-107); CREATININE SERUM 0.82 MG/DL (0.60-1.30); GFR ESTIMATED > 60; GLUCOSE 120 MG/DL (70-105); MAGNESIUM 2.2 MG/DL (1.6-2.4); PHOSPHORUS 2.3 MG/DL (2.3-4.7); POTASSIUM 3.8 MMOL/L (3.6-5.0); SODIUM 134 MMOL/L (135-145)
--- NOTE | 2019-07-07 07:00 | Pulmonary Progress Note ---
Subjective Time Seen by a Provider: 06:59 Sepsis Event Evaluation Height, Weight, BMI Height: 5'10.00" Weight: 237lbs. 0.0oz. 107.842545ic; 37.98 BMI Method:Stated Focused Exam Lactate Level 07/05/19 13:14: Lactic Acid Level 3.64*H 07/05/19 15:14: Lactic Acid Level 1.20 Exam Exam Vital Signs Date Time Temp Pulse Resp B/P (MAP) Pulse Ox O2 Delivery O2 Flow Rate FiO2 07/07/19 05:05 36.7 65 18 100/51 (67) 93 Room Air 07/06/19 21:00 Room Air 07/06/19 18:25 92 07/06/19 16:05 37.4 83 18 104/62 (76) 94 Room Air 07/06/19 14:35 98 07/06/19 13:00 81 07/06/19 08:20 Room Air 07/06/19 07:00 87 I & O 07/07/19 07:00 Intake Total 1930 ml Output Total 450 ml Balance 1480 ml Height & Weight Height: 5'10.00" Weight: 237lbs. 0.0oz. 107.782069nm; 37.98 BMI Method:Stated General Appearance: WD/WN, Chronically ill, Mild Distress, Obese HEENT: PERRL/EOMI, Normal ENT Inspection, Pharynx Normal Neck: Full Range of Motion, Normal Inspection, Non Tender, Supple, Carotid Bruit Respiratory: Chest Non Tender, No Accessory Muscle Use, No Respiratory Distress, Decreased Breath Sounds Cardiovascular: Regular Rate, Rhythm, No Edema, No Gallop, No JVD, No Murmur, Normal Peripheral Pulses Capillary Refill: Less Than 3 Seconds Extremity: Normal Capillary Refill, Normal Inspection, Normal Range of Motion, Non Tender, No Calf Tenderness, No Pedal Edema Neurologic/Psychiatric: Alert, Oriented x3, No Motor/Sensory Deficits, Normal Mood/Affect, vet assistant II-XII Norm as Tested, Motor Weakness (lower legs) Skin: Normal Color, Warm/Dry Lymphatic: No Adenopathy Results Lab Laboratory Tests 07/05/19 14:21 07/06/19 04:22 07/07/19 06:10 Assessment/Plan Assessment/Plan Severe COPD -Duoneb -Oxygen -Monitor -CXR reviewed -Labs reviewed [place] -Continue Abx for now -Await cultures -monitor labs Metabolic lactic acidosis -- now resolved -Monitor -KVO IVF Morbid obesity CAD Debility History of LBP with resultant need for surgery. s/p Fusion L2-5 with laminectomy VENKAT APARICIO DO Jul 07, 2019 07:00
[2019-07-07] MEDS: ALBUTEROL IH PRN (07:21)
[2019-07-07] MEDS: ADVAIR 250 MCG/50 MCG (NON-FORMULARY) IH SCH (07:22)
[2019-07-07] MEDS: LORATADINE (CLARITIN) 10 MG TAB PO SCH (08:14)
[2019-07-07] MEDS: ENOXAPARIN 40 MG/0.4 ML (LOVENOX) SYR SC SCH (08:14)
[2019-07-07] MEDS: FAMOTIDINE 20 MG (PEPCID) TABLET PO SCH ×2 (08:14→21:27)
[2019-07-07] MEDS: LOSARTAN 50 MG (COZAAR) TAB PO SCH (08:19)
[2019-07-07] MEDS: CARVEDILOL 3.125 MG (COREG) TABLET PO SCH ×2 (08:19→21:27)
[2019-07-07] MEDS: DOCUSATE SODIUM 100 MG (COLACE) CAP PO SCH ×2 (09:00→21:26)
[2019-07-07] MEDS: SENNA W/DOCUSATE (SENOKOT S) TABLET PO SCH ×2 (09:00→21:26)
[2019-07-07] MEDS: polyethylene glycoL POWDER 17 GM (MIRALAX) PACK PO SCH ×2 (09:00→21:26)
[2019-07-07 09:48] LABS: BILIRUBIN,URINE NEGATIVE (NEGATIVE); CLARITY,URINE CLEAR; COLOR,URINE YELLOW; GLUCOSE, URINE (UA) TRACE (NEGATIVE); KETONES,URINE NEGATIVE (NEGATIVE); LEUKOCYTE ESTERASE ,URINE NEGATIVE (NEGATIVE); NITRITE,URINE NEGATIVE (NEGATIVE); PH,URINE 5.5 (5-9); PROTEIN,URINE TRACE (NEGATIVE)
[2019-07-07 09:59] LABS: BACTERIA,URINE NEGATIVE /HPF; SQUAMOUS EPITHELIAL CELL,UR 0-2 /HPF; WBC,URINE 0-2 /HPF
--- NOTE | 2019-07-07 10:10 | NUR ---
Dressings rolling up at edges. Multiple serous drainage rowe on left incision site. Scant serosanguineous drainage at top of dorsal site dressing. All adrianna intact, incisions pink, blanching with both sites. Dressing changes complete to left incisional site and dorsal incision. Dressings marked with initials and date by this RN.
--- NOTE | 2019-07-07 11:24 | Physical Therapy Daily Note ---
PT Daily Note-Current Subjective Pt agreeable to PT session. States he is not a morning person and prefers later treatment times Pain Numeric Pain Scale: 8 Comment: pain increases with activity Appearance Pt sitting up in recliner awake and alert upon arrival. Pt requesting and assisted to bathroom. Nurse present during parts of therapy session. At end of session, pt sitting up in recliner with call light, phone and bedside table within reach. Mental Status Patient Orientation: Person, Place, Time, Eyes Open, Situation pt has back brace but refusing to wear at this time stating it to more painful wearing it as it pinches and doesn't fit correctly with his body type. Pt states if it could fit better, he would definitely wear it. Transfers SCALE: Activities may be completed with or without assistive devices. 0-Tusfgfjapo-jdnenru completes the activity by him/herself with no assistance from a helper. 5-Set-up or Clean-up Assistance-helper sets up or cleans up; patient completes activity. [place] assists only prior to or following the activity. 4-Supervision or Touching Assistance-helper provides verbal cues and/or touching/steadying and/or contact guard assistance as patient completes activi ty. Assistance may be provided throughout the activity or intermittently. 3-Partial/Moderate Assistance-helper does LESS THAN HALF the effort. [place] lifts, holds or supports trunk or limbs, but provides less than half the effort. 2-Substantial/Maximal Assistance-helper does MORE THAN HALF the effort. [place] lifts or holds trunk or limbs and provides more than half the effort. 5-Hbchjnput-bboneu does ALL the effort. Patient does none of the effort to complete the activity. Or, the assistance of 2 or more helpers is required for the patient to complete the activity. If activity was not attempted, code reason: 7-Patient Refused. 9-Not Applicable-not attempted and the patient did not perform the activity before the current illness, exacerbation or injury. 10-Not Attempted due to Environmental Limitations-(lack of equipment, weather restraints, etc.). 88-Not Attempted due to Medical Conditions or Safety Concerns. Sit to Stand (QC): 4 Chair/Wga-lx-Njpyo Xfer(QC): 4 Toilet Transfer (QC): 4 Pt demo good safety techniques and hand placement during transitions with minimal required Weight Bearing Right Lower Extremity: Right Full Weight Bearing Left Lower Extremity: Left Full Weight Bearing Gait Training Does the Patient Walk?: Yes Distance: 20 Walk 10 feet (QC): 4 Gait Persons Needed: 1 Gait Assistive Device: FWW very slow guarded pace, decreased step length and height Exercises Seated Therapy Exercises: Ankle pumps, Long arc quads, Hip flexion, Hip abd/add Seated Reps: 15 Neuromuscular 10 min then 15 min standing balance activities during during life activities w ith and without UE support, SBA to CGA, min verb inst for safety and balance Treatments education, safety, transfers, balance, strength, activity tolerance, functional mobility, toileting, layne care, collection of urine for UA Assessment very slow and cautious movements when up in walker, fatigues, increased pain both with being too sedentary and with increased activity, improving balance in standing during activities PT Short Term Goals Short Term Goals Time Frame: Jul 12, 2019 Sit to lyin Lying to sitting on side of be: 4 Sit to stand: 5 Chair/jky-br-wlyyu transfer: 5 Walk 150 feet: 4 1 step (curb): 4 PT Printer Floor Covering Assistant Goals Custodial Goals PT Custodial Goals Time Frame: Jul 20, 2019 Roll Left & Right (QC): 6 Sit to Lying (QC): 6 Lying-Sitting on Side/Bed(QC): 6 Sit to Stand (QC): 6 Chair/Kux-yy-Xmcnn Xfer(QC): 6 Toilet Transfer (QC): 6 Car Transfer (QC): 5 Does the Patient Walk: Yes Walk 10 feet (QC): 6 Walk 50ft with 2 Turns (QC): 6 Walk 150 ft (QC): 6 Walking 10ft on Uneven Surface: 6 1 Step (curb) (QC): 6 4 Steps (QC): 6 12 Steps (QC): 9 Picking up an Object (QC): 88 Does the Pt use WC or Scooter?: No PT Plan Treatment/Plan Treatment Plan: Continue Plan of Care Treatment Plan: Bed Mobility, Education, Functional Activity Melissa, Functional Strength, Group Therapy, Gait, Safety, Therapeutic Exercise, Transfers Treatment Duration: Jul 20, 2019 Frequency: Modified Program (IRF) (25/12 per physician) Estimated Hrs Per Day: 1.5 hours per day (1 to 1.5) Patient and/or Family Agrees t: Yes Safety Risks/Education Patient Education: Gait Training, Transfer Techniques, Reviewed Precautions, Correct Positioning, Reviewed Don/Doff Brace (although will not wear it at this time due to ill fitting and increases his pain), Disease Process, Safety Issues Teaching Methods: Demonstration, Discussion Response to Teaching: Verbalize Understanding, Return Demonstration Time/GCodes Time In: 902 Time Out: 1005 Total Billed Treatment Time: 63 Total Billed Treatment 1 visit, FA x25 min, NM x 20 min, EX x18 min JASMYNE RUIZ PTA Jul 07, 2019 11:24
--- NOTE | 2019-07-07 12:07 | PM&R Progress Note ---
Subjective HPI/CC On Admission Date Seen by Provider: Jul 07, 2019 Time Seen by Provider: 11:45 Subjective/Events-last exam Bowels are now moving Shortness of breath is much improved Pain is still an issue in his back Ultram given this morning which didn't help much IV antibiotics maintain for pneumonia Urine checked and it only had a trace of glucose Lovenox was declined but I did talk him into a dose today and tomorrow and as well as he is able to ambulate around and pneumonia is resolving I feel like his risk for DVT goes down significantly Overall stable but slow progress Conferred with RN Reviewed therapy notes Checked meds and labs Review of Systems General: Fatigue Pulmonary: Dyspnea Musculoskeletal: back pain Focused Exam Lactate Level 07/05/19 13:14: Lactic Acid Level 3.64*H 07/05/19 15:14: Lactic Acid Level 1.20 Objective Exam Vital Signs Vital Signs Date Time Temp Pulse Resp B/P (MAP) Pulse Ox O2 Delivery O2 Flow Rate FiO2 07/07/19 09:00 Room Air 07/07/19 07:25 94 07/07/19 05:05 36.7 65 18 100/51 (67) Capillary Refill : Less Than 3 Seconds General Appearance: WD/WN, Chronically ill, Mild Distress, Obese HEENT: PERRL/EOMI, Normal ENT Inspection, Pharynx Normal Neck: Full Range of Motion, Normal Inspection, Non Tender, Supple, Carotid Bruit Respiratory: Chest Non Tender, No Accessory Muscle Use, No Respiratory Distress, Decreased Breath Sounds Cardiovascular: Regular Rate, Rhythm, No Edema, No Gallop, No JVD, No Murmur, Normal Peripheral Pulses Gastrointestinal: Normal Bowel Sounds, No Organomegaly, No Pulsatile Mass, Non Tender, Soft Back: Decreased Range of Motion, Muscle Spasm, Vertebral Tenderness Extremity: Normal Capillary Refill, Normal Inspection, Normal Range of Motion, Non Tender, No Calf Tenderness, No Pedal Edema Neurologic/Psychiatric: Alert, Oriented x3, No Motor/Sensory Deficits, Normal Mood/Affect, 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 FIM Transfers Therapy Code Descriptions/Definitions Functional [place] Measure: 0=Not Assessed/NA 4=Minimal Assistance 1=Total Assistance 5=Supervision or Setup 2=Maximal Assistance 6=Modified [place] 3=Moderate Assistance 7=Complete IndependenceSCALE: Activities may be completed with or without assistive devices. 0-Jlswpfwoji-gxdqimr completes the activity by him/herself with no assistance from a helper. 5-Set-up or Clean-up Assistance-helper sets up or cleans up; patient completes activity. [place] assists only prior to or following the activity. 4-Supervision or Touching Assistance-helper provides verbal cues and/or touching/steadying and/or contact guard assistance as patient completes activity. Assistance may be provided throughout the activity or intermittently. 3-Partial/Moderate Assistance-helper does LESS THAN HALF the effort. [place] lifts, holds or supports trunk or limbs, but provides less than half the effort. 2-Substantial/Maximal Assistance-helper does MORE THAN HALF the effort. [place] lifts or holds trunk or limbs and provides more than half the effort. 4-Tvnmijsvw-opygdf does ALL the effort. Patient does none of the effort to complete the activity. Or, the assistance of 2 or more helpers is required for the patient to complete the activity. If activity was not attempted, code reason: 7-Patient Refused. 9-Not Applicable-not attempted and the patient did not perform the activity before the current illness, exacerbation or injury. 10-Not Attempted due to Environmental Limitations-(lack of equipment, weather restraints, etc.). 88-Not Attempted due to Medical Conditions or Safety Concerns. Roll Left to Right (QC): 3 Sit to Lying (QC): 3 Sit to Stand (QC): 4 Chair/Dyz-xd-Wsfkf Xfer(QC): 4 Car Transfer (QC): 88 (pt unsafe to attempt this date. ) Gait Training Does the Patient Walk?: Yes Distance: 20 Walk 10 feet (QC): 4 Walk 50 ft with 2 Turns(QC): 3 Walk 150 ft (QC): 88 Walking 10ft/uneven surface-QC: 88 Gait Persons Needed: 1 Gait Assistive Device: FWW Wheelchair Training Does the Pt Use a Wheelchair?: No Stair Training 1 Step (curb) (QC): 88 4 Steps (QC): 88 12 Steps (QC): 88 Balance Picking up an Object (QC): 88 (contraindicated with recent back surgery.) ADL-Treatment Eating (QC): 6 Oral Hygiene (QC): 7 Shower/Bathe Self (QC): 3 Upper Body Dressing (QC): 7 Lower Body Dressing (QC): 2 On/Off Footwear (QC): 2 Toileting Hygiene (QC): 4 Assessment/Plan Assessment and Plan Assess & Plan/Chief Complaint Assessment: Lumbar stenosis with radiculopathy post op with severe debility PNA acute Sepsis DIONNE on biPAP HTN CAD Plan: IRF protocol but slow process 25/12 due to PNA and severe debility BM regimen Patient refuses a lot of meds and interventions Much improved today (1) Stenosis, spinal, lumbar (2) Coronary artery disease Status: Acute (3) Pneumonia Status: Acute (4) Lumbar radiculopathy (5) Sepsis (6) Leukocytosis (7) Non-compliance (8) Constipation (9) Hypertension (10) DIONNE treated with BiPAP (11) Lactic acid acidosis AYDE FRANCO DO Jul 07, 2019 12:07
--- NOTE | 2019-07-07 12:08 | Individualized Plan of Care ---
Individualized Plan of Care Rehab Nursing IPOC Order Admission Date Jul 05, 2019 at 09:30 Current Orders Orders Incentive Spirometry (Nursing) Q2H (07/05/19 09:41) General/Regular (07/05/19 Lunch) (Nf) Ipratropium [place] (07/05/19 09:45) Albuterol Pre-Mix Nebs (Rt) (Proventil (07/05/19 10:00) Carvedilol Tablet (Coreg Tablet) (07/05/19 21:00) Cyclobenzaprine Tablet (Flexeril Tablet) (07/05/19 09:45) Hydrocodone/Apap 5/325 Tablet (Lortab 5 (07/05/19 09:45) Loratadine Tablet (Claritin Tablet) (07/06/19 09:00) Losartan Tablet (Cozaar Tablet) (07/06/19 09:00) Therapeutic Multivitamin Tab (Vitamins, (07/06/19 07:00) Patient May Use Own Meds, All (Patient M (07/05/19 09:45) Famotidine Tablet (Pepcid Tablet) (07/05/19 21:00) Acetaminophen Tablet/Caplet (Tylenol T (07/05/19 09:45) Fentanyl Injection (Sublimaze Injection (07/05/19 09:45) Tramadol Tablet (Ultram Tablet) (07/05/19 09:45) Svn Small Volume Nebulizer (07/05/19 09:41) Svn Small Volume Nebulizer (07/05/19 09:41) Admission Order(Inpt,Obs,Sdc) (07/05/19 09:41) Vital Signs: Per Unit Policy ( 08,16,00 (07/05/19 09:41) Derek Leary , (07/05/19 09:41) Sequential Compression Device Q4H (07/05/19 09:41) Esthetician Makeup Artist-Inpt Rehab Con (07/05/19 09:41) Rehab Nursing Orders-Ipoc (07/05/19 09:41) Physical Therapy Rehab Orders (07/05/19 09:41) Occupational Therapy Rehab Ord (07/05/19 09:41) Speech Therapy Rehab Orders (07/05/19 09:41) Comprehensive Metabolic Panel (07/06/19 06:00) Intake & Output 06,14,22 (07/05/19 09:41) Precautions (Aru) (07/05/19 09:41) Daily Weight 06 (07/05/19 09:41) Rehab-Intensity Of Therapy (07/05/19 09:41) Initiate Admission Nursing Pro .admission (07/05/19 09:41) Alprazolam Tablet (Xanax Tablet) (07/05/19 09:45) Calcium Carbonate Chew Tablet (Antacid C (07/05/19 09:45) Diphenhydramine Tablet (Benadryl Tablet) (07/05/19 09:45) Docusate Sodium Capsule (Colace Capsule) (07/05/19 21:00) Docusate Sodium Capsule (Colace Capsule) (07/05/19 09:45) Bisacodyl Suppository (Dulcolax Supposit (07/05/19 09:45) Lactulose Oral Solution (Enulose Oral So (07/05/19 09:45) Na Phos/Na Biphos Enema (Fleet Enema Canelo (07/05/19 09:45) Guaifenesin/Codeine Syrup (Robitussin Ac (07/05/19 09:45) Loperamide Tablet (Imodium Tablet) (07/05/19 09:45) Melatonin Tablet (Melatonin Tablet) (07/05/19 09:45) Polyethylene Glycol Powder Pkt (Miralax (07/05/19 21:00) Ondansetron Oral Dissolve Tab (Zofran (07/05/19 09:45) Senna S Tablet (Senokot S Tablet) (07/05/19 21:00) Code/Resuscitation (07/05/19 09:41) Initiate Admission Nursing Pro .admission (07/05/19 09:41) Vancomycin Injection (Vancomycin Injecti (07/05/19 09:45) Lactic Acid Analyzer (07/05/19 13:00) Consult Cardiology (07/05/19 09:41) Consult Pulmonology (07/05/19 09:41) Transfer - Bed/Room/Location (07/05/19 09:54) Atorvastatin Tablet (Lipitor) (07/05/19 21:00) Ns Iv 1000 Ml (Sodium Chloride 0.9%) (07/05/19 10:15) Montelukast Tablet (Singulair Tablet) (07/05/19 21:00) Vancomycin Injection (Vancomycin Injecti (07/05/19 12:00) Trough Order (Trough Order-Pharmacy Orde (07/06/19 11:00) Vancomycin,Trough (07/06/19 11:00) Influenza Quad (5+Yoa) (Afluria (07/05/19 11:15) Ambulate (07/05/19 11:31) Sequential Compression Device Q4H (07/05/19 11:31) Dvt/Vte Risk - Notifiy Physici Q4H (07/05/19 11:31) Patient Visit (07/05/19 ) Speech Sound Lang Comp (07/05/19 ) Cefepime Injection (Maxipime Injection) (07/05/19 18:00) Enoxaparin Injection (Lovenox Injection) (07/07/19 09:00) Patient Visit (07/05/19 ) Pt Eval Moderate Complexity (07/05/19 ) Functional Activities, Ea 15 (07/05/19 ) Basic Metabolic Panel (07/05/19 13:44) Amb Us Guide Vascular Access (07/05/19 ) Venous Access Request Order (07/05/19 15:25) Ns Iv 1000 Ml (Sodium Chloride 0.9%) (07/05/19 15:30) Telemetry Nursing Assessment ( (07/05/19 15:29) Basic Metabolic Panel (07/06/19 05:00) Cbc With Automated Diff (07/06/19 05:00) Magnesium (07/06/19 05:00) Patient May Use Own Med,Single (Patient (07/05/19 18:15) Phosphorus (07/06/19 05:00) Chest 1 View, Ap/Pa Only (07/06/19 05:01) Cath [id number] (07/05/19 ) Amb Us Guide Vascular Access (07/05/19 ) Potassium Phosphate Inj (Potassium Phosp (07/06/19 08:21) Mrsa Screen Physician Request (07/06/19 08:22) Mrsa Nursing Screening/Treatme .admit (07/06/19 08:22) Patient Visit (07/05/19 ) Functional Activities, Ea 15 (07/05/19 ) Albuterol Pre-Mix Nebs (Rt) (Proventil (07/06/19 10:15) Patient May Use Own Med,Single (Patient (07/06/19 10:15) Patient May Use Own Med,Single (Patient (07/06/19 10:15) Fluticasone/Salm(Non-Formulary (Advair I (07/06/19 11:00) Svn Small Volume Nebulizer (07/06/19 10:46) Albuterol Inhaler (Proair Hfa) (07/06/19 11:00) Patient Visit (07/06/19 ) Functional Activities, Ea 15 (07/06/19 ) Exercise Therap, Ea 15 Min (07/06/19 ) Patient Visit (07/06/19 ) Exercise Therap, Ea 15 Min (07/06/19 ) Basic Metabolic Panel (07/07/19 05:00) Cbc With Automated Diff (07/07/19 05:00) Magnesium (07/07/19 05:00) Phosphorus (07/07/19 05:00) Ua Culture If Indicated (07/07/19 09:40) Patient Visit (07/07/19 ) Functional Activities, Ea 15 (07/07/19 ) Exercise Therap, Ea 15 Min (07/07/19 ) Ex Neuromuscular, Ea 15 Min (07/07/19 ) Rehab Nursing Orders: Ongoing Assess. of Cognitive Status, Ongoing Assess. of Function Status, Bladder Scan, Bladder Training, Bowel Management, Bowel Training, Disease Management & Educaiton, DVT Prophylaxis, Fall Prevention, Fluid/Electrolyte/Nutrition Mgmt, Infection Prevention, Medication Management & Education, Management of Risks & Complications, Management of Skin Intergrity, Nutrition Management, Pain Management, Patient/Family Support, Safety Management Intensity of Therapy to be met Patient to be seen: 15 hrs over 7 cons. days PT IPOC Problem List: Activity Tolerance, Functional Strength, Safety, Balance, Gait, Transfer, Bed Mobility, ROM Treatment Plan: Continue Plan of Care Bed Mobility, Education, Functional Activity Melissa, Functional Strength, Group Therapy, Gait, Safety, Therapeutic Exercise, Transfers Treatment Duration: Jul 20, 2019 Frequency: Modified Program (IRF) (25/12 per physician) Estimated Hrs Per Day: 1.5 hours per day (1 to 1.5) OT IPOC Problems: Decreased Activ Tolerance, Decreased UE Strength, Dependent Transfers, Impaired Bed Mobility, Impaired I ADL's, Impaired Self-Care Skills OT Treatment, Training and Edu: Yes Plan of Care: ADL Retraining, Caregiver Training, Concurrent Therapy, Functional Mobility, Group Exercise/Act as Ind, Orthotic Fitting/Training, UE Funct Exercise/Act Treatment Duration: Jul 19, 2019 Frequency: At least 5 of 7 days/Wk (IRF) Estimated Hrs Per Day: 1.[address] IPOC Speech Therapy Treatment Plan: Discontinue ST Treatment Duration: Jul 05, 2019 Frequency: 1 time per week Estimated Hrs Per Day: .25 hour per day Esthetician Makeup Artist/Case Mgmt Esthetician Makeup Artist/Case Managemen: Discharge Planning Dietitian/Medical Imaging Technician Dietitian/Medical Imaging Technician to monitor nutritional status and make changes and/or recommendations as needed and work with speech pathology on dietary upgrades as the occur. Physician IPOC Medical Issues being managed closely and that require the 24 hour availability of a physician: Acute pneumonia with hypoxia and postop ileus with recent fall and history of obstructive sleep apnea on BiPAP is at high risk for decompensation Medical Issues: Bowel/Bladder Function, DVT Prophylaxis, Falls Precautions, Fluid/Electrolyte/Nutrition Balance, Infection Protection, Pain Management Brief Synthesis of Preadmission Screen, Post-Admission Evaluation, and Therapy Evaluations: PT and OT will help regain enough independent ADLs and ability to ambulate in order to return home with his Medical Prognosis: Good Anticipated Length of Stay: 7 days AYDE FRANCO DO Jul 07, 2019 12:08
[2019-07-07] MEDS: VANCOMYCIN 1,750 MG/NS 500 ML IVPB IV SCH ×4 (12:50→23:22)
--- NOTE | 2019-07-07 13:33 | Cardiology Progress Note ---
Cardiology SOAP Progress Note Subjective: No cardiac complaints. Objective: I&O/Vital Signs 07/07/19 07/07/19 07/07/19 07/07/19 05:05 07:22 07:25 09:00 Temp 36.7 Pulse 65 Resp 18 B/P (MAP) 100/51 (67) Pulse Ox 93 94 94 O2 Delivery Room Air Room Air 07/07/19 00:00 Intake Total 700 ml Output Total 450 ml Balance 250 ml Weight (Pounds): 237 Weight (Ounces): 0.0 Weight (Calculated Kilograms): 107.783493 Constitutional: No appears stated age; AAO x 3; No apparent distress; PERRL, well-developed, well-nourished; No other Respiratory: chest is bilaterally symmetric, lungs clear to auscultation Cardiovascular: regular rate-rhythm, S1 and S2 Gastrointestional: soft, audible bowel sounds Extremities: normal range of motion, non-tender, normal inspection, no lower extremity edema bilateral Neurologic/Psychiatric: no motor/sensory deficits, alert, normal mood/affect, oriented x 3 Skin: normal color Results/Procedures: Labs Laboratory Tests 07/07/19 06:10: White Blood Count 13.0H, Red Blood Count 3.22L, Hemoglobin 10.5L, Hematocrit 31L , Mean Corpuscular Volume 96, Mean Corpuscular Hemoglobin 33, Mean Corpuscular Hemoglobin Concent 34, Red Cell Distribution Width 13.6, Platelet Count 311, Mean Platelet Volume 9.2, Neutrophils (%) (Auto) 68, Lymphocytes (%) (Auto) 16, Monocytes (%) (Auto) 13H, Eosinophils (%) (Auto) 3, Basophils (%) (Auto) 0, Neutrophils # (Auto) 8.9H, Lymphocytes # (Auto) 2.0, Monocytes # (Auto) 1.7H, Eosinophils # (Auto) 0.4H, Basophils # (Auto) 0.0, Sodium Level 134L, Potassium Level 3.8, Chloride Level 104, Carbon Dioxide Level 20L, Anion Gap 10, Blood Urea Nitrogen 8, Creatinine 0.82, Estimat Glomerular Filtration Rate > 60, BUN/Creatinine Ratio 10, Glucose Level 120H, Calcium Level 8.1L, Phosphorus Level 2.3, Magnesium Level 2.2 07/07/19 09:30: Urine Color YELLOW, Urine Clarity CLEAR, Urine pH 5.5, Urine Specific May >=1.030, Urine Protein TRACE, Urine Glucose (UA) TRACEH, Urine Ketones NEGATIVE, Urine Nitrite NEGATIVE, Urine Bilirubin NEGATIVE, Urine Urobilinogen 0.2, Urine Leukocyte Esterase NEGATIVE, Urine RBC (Auto) NEGATIVE, Urine RBC NONE, Urine WBC 0-2, Urine Squamous Epithelial Cells 0-2, Urine Crystals NONE, Urine Bacteria NEGATIVE, Urine Casts NONE, Urine Mucus SMALLH, Urine Culture Indicated NO A/P: Assessment/Dx: Coronary artery disease Debility COPD Hypertension Plan: Spinal stenosis, had recent surgery, recovering slowly, generalized weakness and debility, receiving physical therapy. COPD, obstructive sleep apnea, shortness of breath on exertion. Status post pneumonia, recovering slowly and improving Coronary artery disease, history of multiple intervention in the past, had a stress test done in May 2019 showing no ischemia or infarction. Normal EF. Continue to monitor Hypertension, restart home medication monitor blood pressure next Hyperlipidemia. Continue to monitor lipids Morbid obesity, BMI 38, receiving physical therapy. Next Electrolyte imbalance, managed by primary care physician Constipation Thank you for your consultation. Please call me if you have any questions. Diomedes Buck MD, FACP, FACC, FSCAI, FHRS, CCDS Interventional Cardiology Cardiac Electrophysiology Vascular Medicine and Endovascular Interventions Focused Exam Lactate Level 07/05/19 13:14: Lactic Acid Level 3.64*H 07/05/19 15:14: Lactic Acid Level 1.20 Lakshmi BUCK MD Jul 07, 2019 13:33
[2019-07-07 17:27] VITALS: BP 112/72
[2019-07-07] MEDS: MONTELUKAST 10 MG (SINGULAIR) TAB PO SCH (21:27)
[2019-07-07] MEDS: CATHETER FLUSH 10 ML SYR IV SCH (21:27)
[2019-07-08] MEDS: NS IV 1000 ML 1,000 ML IV SCH (00:44)
[2019-07-08] MEDS: HYDROcodone/APAP 5 MG/325 MG (LORTAB) TAB PO PRN ×3 (02:57→16:41)
[2019-07-08] MEDS: CEFEPIME INJECTION 2,000 MG in WATER (STERILE) FOR INJECTION 20 ML IV SCH ×2 (05:12→17:46)
[2019-07-08] MEDS: CATHETER FLUSH 10 ML SYR IV SCH ×2 (05:12→13:22)
[2019-07-08] MEDS: MULTIVIT W/MINERALS TAB (THERAGRAN M) PO SCH (05:13)
[2019-07-08 05:26] LABS: BASOPHILS % (AUTO) 0 % (0-10); EOSINOPHILS # (AUTO) 0.6 10^3/uL (0.0-0.3); EOSINOPHILS % (AUTO) 5 % (0-10); HEMATOCRIT 29 % (40-54); LYMPHOCYTES # (AUTO) 1.4 X 10^3 (1.0-4.0); LYMPHOCYTES % (AUTO) 12 % (12-44); MEAN CORPUSCULAR HEMOGLOBIN 33 PG (25-34); MEAN CORPUSCULAR HGB CONC 34 G/DL (32-36); MEAN CORPUSCULAR VOLUME 97 FL (80-99); MEAN PLATELET VOLUME 9.2 FL (7.4-10.4); MONOCYTES # (AUTO) 1.3 X 10^3 (0.0-1.0); MONOCYTES % (AUTO) 11 % (0-12); NEUTROPHILS # (AUTO) 8.9 X 10^3 (1.8-7.8); NEUTROPHILS % (AUTO) 72 % (42-75); PLATELET COUNT 323 10^3/uL (130-400); RED CELL DISTRIBUTION WIDTH 13.3 % (10.0-14.5); WHITE BLOOD COUNT 12.4 10^3/uL (4.3-11.0)
[2019-07-08 05:31] VITALS: BP 169/88
[2019-07-08 05:44] LABS: BUN/CREATININE RATIO 9; CALCIUM 8.2 MG/DL (8.5-10.1); CARBON DIOXIDE 19 MMOL/L (21-32); CHLORIDE 105 MMOL/L (98-107); GFR ESTIMATED > 60; GLUCOSE 174 MG/DL (70-105); MAGNESIUM 2.1 MG/DL (1.6-2.4); PHOSPHORUS 2.1 MG/DL (2.3-4.7); POTASSIUM 3.5 MMOL/L (3.6-5.0); SODIUM 134 MMOL/L (135-145)
[2019-07-08] MEDS: ALBUTEROL IH PRN ×2 (07:19→19:04)
--- NOTE | 2019-07-08 08:00 | NUR ---
NO BM SINCE 07/06, STOOL SOFTENERS ENCOURAGED; PT REFUSED, VOICES, "WOULD LIKE TO TRY SOFTENERS FROM HOME," EXPLAINS HAS HAD SUCCESS USING THIS TYPE AT HOME WITHOUT CRAMPING OR EXCESSIVE LOOSE STOOLS. WILL USE THEM THIS AFTERNOON IF HE HAS NOT HAD ANY SUCCESS. Addendum: 07/08/19 at 1840 by CASSIE RIDER RN RN NOTIFIED DR DURING DAILY ROUNDS. OK'D TO LET PT TAKE PT'S OWN STOOL SOFTENER.
[2019-07-08] MEDS: LOSARTAN 50 MG (COZAAR) TAB PO SCH (08:47)
[2019-07-08] MEDS: CARVEDILOL 3.125 MG (COREG) TABLET PO SCH ×2 (08:47→20:23)
[2019-07-08] MEDS: LORATADINE (CLARITIN) 10 MG TAB PO SCH (08:47)
[2019-07-08] MEDS: FAMOTIDINE 20 MG (PEPCID) TABLET PO SCH ×2 (08:47→20:23)
[2019-07-08] MEDS: DOCUSATE SODIUM 100 MG (COLACE) CAP PO SCH ×2 (08:48→20:23)
[2019-07-08] MEDS: polyethylene glycoL POWDER 17 GM (MIRALAX) PACK PO SCH ×2 (08:48→21:00)
[2019-07-08] MEDS: SENNA W/DOCUSATE (SENOKOT S) TABLET PO SCH ×2 (08:48→20:23)
[2019-07-08] MEDS: ENOXAPARIN 40 MG/0.4 ML (LOVENOX) SYR SC SCH (08:49)
[2019-07-08] MEDS: ADVAIR 250 MCG/50 MCG (NON-FORMULARY) IH SCH ×2 (10:29→19:04)
[2019-07-08] MEDS: IBUPROFEN TABLET 200 MG TAB PO PRN (12:46)
[2019-07-08] MEDS: VANCOMYCIN 1,750 MG/NS 500 ML IVPB IV SCH ×2 (12:46)
--- NOTE | 2019-07-08 12:54 | PM&R Progress Note ---
Subjective HPI/CC On Admission Date Seen by Provider: Jul 08, 2019 Time Seen by Provider: 12:15 Subjective/Events-last exam Bowels are slow but moving when he takes his home herbal laxative Shortness of breath is much improved and cough is much improved Pain is still an issue in his back along with right rib so will order K pad IV antibiotics maintained for pneumonia and will narrow spectrum tomorrow Lovenox was declined but I did talk him into a dose yesterday and today and as well as he is able to ambulate around and pneumonia is resolving I feel like his risk for DVT goes down significantly Overall stable but slow progress Conferred with RN Reviewed therapy notes Checked meds and labs Review of Systems General: Fatigue Gastrointestinal: Constipation Musculoskeletal: back pain Focused Exam Lactate Level 07/05/19 15:14: Lactic Acid Level 1.20 Objective Exam Vital Signs Vital Signs Date Time Temp Pulse Resp B/P (MAP) Pulse Ox O2 Delivery O2 Flow Rate FiO2 07/08/19 09:00 Room Air 07/08/19 07:21 92 07/08/19 05:31 36.5 78 18 169/88 (115) Capillary Refill : Less Than 3 Seconds General Appearance: WD/WN, Chronically ill, Mild Distress, Obese HEENT: PERRL/EOMI, Normal ENT Inspection, Pharynx Normal Neck: Full Range of Motion, Normal Inspection, Non Tender, Supple, Carotid Bruit Respiratory: Chest Non Tender, No Accessory Muscle Use, No Respiratory Distress, Decreased Breath Sounds Cardiovascular: Regular Rate, Rhythm, No Edema, No Gallop, No JVD, No Murmur, Normal Peripheral Pulses Gastrointestinal: Normal Bowel Sounds, No Organomegaly, No Pulsatile Mass, Non Tender, Soft Back: Decreased Range of Motion, Muscle Spasm, Vertebral Tenderness Extremity: Normal Capillary Refill, Normal Inspection, Normal Range of Motion, Non Tender, No Calf Tenderness, No Pedal Edema Neurologic/Psychiatric: Alert, Oriented x3, No Motor/Sensory Deficits, Normal Mood/Affect, bolt maker II-XII Norm as Tested, Motor Weakness (lower legs) Skin: Normal Color, Warm/Dry Lymphatic: No Adenopathy Results/Procedures Lab Laboratory Tests 07/08/19 05:10 Patient resulted labs reviewed. FIM Transfers Therapy Code Descriptions/Definitions Functional [place] Measure: 0=Not Assessed/NA 4=Minimal Assistance 1=Total Assistance 5=Supervision or Setup 2=Maximal Assistance 6=Modified [place] 3=Moderate Assistance 7=Complete IndependenceSCALE: Activities may be completed with or without assistive devices. 0-Zeppemrilt-lqlxqut completes the activity by him/herself with no assistance from a helper. 5-Set-up or Clean-up Assistance-helper sets up or cleans up; patient completes activity. [place] assists only prior to or following the activity. 4-Supervision or Touching Assistance-helper provides verbal cues and/or touching/steadying and/or contact guard assistance as patient completes activity. Assistance may be provided throughout the activity or intermittently. 3-Partial/Moderate Assistance-helper does LESS THAN HALF the effort. [place] lifts, holds or supports trunk or limbs, but provides less than half the effort. 2-Substantial/Maximal Assistance-helper does MORE THAN HALF the effort. [place] lifts or holds trunk or limbs and provides more than half the effort. 5-Cqylkowso-ccrhpf does ALL the effort. Patient does none of the effort to complete the activity. Or, the assistance of 2 or more helpers is required for the patient to complete the activity. If activity was not attempted, code reason: 7-Patient Refused. 9-Not Applicable-not attempted and the patient did not perform the activity before the current illness, exacerbation or injury. 10-Not Attempted due to Environmental Limitations-(lack of equipment, weather restraints, etc.). 88-Not Attempted due to Medical Conditions or Safety Concerns. Roll Left to Right (QC): 3 Sit to Lying (QC): 3 Sit to Stand (QC): 4 Chair/Agl-vc-Dmwwo Xfer(QC): 4 Car Transfer (QC): 88 (pt unsafe to attempt this date. ) Gait Training Does the Patient Walk?: Yes Distance: 20 Walk 10 feet (QC): 4 Walk 50 ft with 2 Turns(QC): 3 Walk 150 ft (QC): 88 Walking 10ft/uneven surface-QC: 88 Gait Persons Needed: 1 Gait Assistive Device: FWW Wheelchair Training Does the Pt Use a Wheelchair?: No Stair Training 1 Step (curb) (QC): 88 4 Steps (QC): 88 12 Steps (QC): 88 Balance Picking up an Object (QC): 88 (contraindicated with recent back surgery.) ADL-Treatment Eating (QC): 6 Oral Hygiene (QC): 7 Shower/Bathe Self (QC): 3 Upper Body Dressing (QC): 7 Lower Body Dressing (QC): 2 On/Off Footwear (QC): 2 Toileting Hygiene (QC): 4 Assessment/Plan Assessment and Plan Assess & Plan/Chief Complaint Assessment: Lumbar stenosis with radiculopathy post op with severe debility PNA acute Sepsis DIONNE on biPAP HTN CAD Plan: IRF protocol but slow process 25/12 due to PNA and severe debility BM regimen Patient refuses a lot of meds and interventions Much improved today (1) Stenosis, spinal, lumbar (2) Coronary artery disease Status: Acute (3) Pneumonia Status: Acute (4) Lumbar radiculopathy (5) Sepsis (6) Leukocytosis (7) Non-compliance (8) Constipation (9) Hypertension (10) DIONNE treated with BiPAP (11) Lactic acid acidosis AYDE FRANCO DO Jul 08, 2019 12:54
--- NOTE | 2019-07-08 13:23 | Cardiology Progress Note ---
Cardiology SOAP Progress Note Subjective: No cardiac complaints. Objective: I&O/Vital Signs 07/08/19 07/08/19 07/08/19 07/08/19 05:31 07:21 07:21 09:00 Temp 36.5 Pulse 78 Resp 18 B/P (MAP) 169/88 (115) Pulse Ox 95 94 92 O2 Delivery Room Air Room Air 07/08/19 00:00 Intake Total 1200 ml Output Total 100 ml Balance 1100 ml Weight (Pounds): 237 Weight (Ounces): 0.0 Weight (Calculated Kilograms): 107.673963 Constitutional: No appears stated age; AAO x 3; No apparent distress; PERRL, well-developed, well-nourished; No other Respiratory: chest is bilaterally symmetric, lungs clear to auscultation Cardiovascular: regular rate-rhythm, S1 and S2 Gastrointestional: soft, audible bowel sounds Extremities: normal range of motion, non-tender, normal inspection, no lower extremity edema bilateral Neurologic/Psychiatric: no motor/sensory deficits, alert, normal mood/affect, oriented x 3 Skin: normal color Results/Procedures: Labs Laboratory Tests 07/08/19 05:10: White Blood Count 12.4H, Red Blood Count 3.01L, Hemoglobin 10.0L, Hematocrit 29L , Mean Corpuscular Volume 97, Mean Corpuscular Hemoglobin 33, Mean Corpuscular Hemoglobin Concent 34, Red Cell Distribution Width 13.3, Platelet Count 323, Mean Platelet Volume 9.2, Neutrophils (%) (Auto) 72, Lymphocytes (%) (Auto) 12, Monocytes (%) (Auto) 11, Eosinophils (%) (Auto) 5, Basophils (%) (Auto) 0, Neut rophils # (Auto) 8.9H, Lymphocytes # (Auto) 1.4, Monocytes # (Auto) 1.3H, Eosinophils # (Auto) 0.6H, Basophils # (Auto) 0.0, Sodium Level 134L, Potassium Level 3.5L, Chloride Level 105, Carbon Dioxide Level 19L, Anion Gap 10, Blood Urea Nitrogen 7, Creatinine 0.80, Estimat Glomerular Filtration Rate > 60, BUN/Creatinine Ratio 9, Glucose Level 174H, Calcium Level 8.2L, Phosphorus Level 2.1L, Magnesium Level 2.1 A/P: Assessment/Dx: Coronary artery disease Debility COPD Hypertension Plan: Spinal stenosis, had recent surgery, recovering slowly, generalized weakness and debility, receiving physical therapy. COPD, obstructive sleep apnea, shortness of breath on exertion. Status post pneumonia, recovering slowly and improving Coronary artery disease, history of multiple intervention in the past, had a stress test done in May 2019 showing no ischemia or infarction. Normal EF. Continue to monitor Hypertension, restart home medication monitor blood pressure next Hyperlipidemia. Continue to monitor lipids Morbid obesity, BMI 38, receiving physical therapy. Next Electrolyte imbalance, managed by primary care physician Constipation Thank you for your consultation. Please call me if you have any questions. Diomedes Buck MD, FACP, FACC, FSCAI, FHRS, CCDS Interventional Cardiology Cardiac Electrophysiology Vascular Medicine and Endovascular Interventions Focused Exam Lactate Level 07/05/19 15:14: Lactic Acid Level 1.20 Lakshmi BUCK MD Jul 08, 2019 13:23
--- NOTE | 2019-07-08 15:00 | NUR ---
NO SUCCESSFUL BM, PATIENT TAKES 2 STOOL SOFTENERS FROM HOME. WILL CONTINUE TO MONITOR.
[2019-07-08 17:48] VITALS: BP 156/80
[2019-07-08 20:00] VITALS: BP 145/76
[2019-07-08] MEDS: MONTELUKAST 10 MG (SINGULAIR) TAB PO SCH (20:23)
--- NOTE | 2019-07-08 20:30 | NUR ---
DR. FRANCO NOTIFIED OF PATIENT COMPLAINING OF MOUTH PAIN AND HAS THRUSH STARTING. WILL START ON DIFLUCAN AND NYSTATIN. AT BEDSIDE.
[2019-07-08] MEDS ORDERED: NYSTATIN ORAL SUSP 5 ML UDC PO ONE (20:45)
[2019-07-08] MEDS: fluCOnazole (DIFLUCAN) 100 MG TAB PO SCH (21:17)
[2019-07-09] MEDS: VANCOMYCIN 1,750 MG/NS 500 ML IVPB IV SCH ×2 (00:01)
[2019-07-09] MEDS: HYDROcodone/APAP 5 MG/325 MG (LORTAB) TAB PO PRN ×3 (00:07→23:05)
[2019-07-09] MEDS: NS IV 1000 ML 1,000 ML IV SCH (00:47)
[2019-07-09] MEDS: NYSTATIN ORAL SUSP 5 ML UDC PO SCH ×4 (01:57→20:23)
[2019-07-09] MEDS: IBUPROFEN TABLET 200 MG TAB PO PRN ×2 (03:03→15:18)
[2019-07-09 05:17] VITALS: BP 145/69
--- NOTE | 2019-07-09 06:00 | NUR ---
SAT IN THE RECLINER MOST OF THE NIGHT. ONLY SLEPT 1.2-2 HOURS. DID NOT WEAR CPAP.
[2019-07-09] MEDS: MULTIVIT W/MINERALS TAB (THERAGRAN M) PO SCH (06:15)
[2019-07-09] MEDS: CEFEPIME INJECTION 2,000 MG in WATER (STERILE) FOR INJECTION 20 ML IV SCH (06:15)
[2019-07-09] MEDS: CATHETER FLUSH 10 ML SYR IV SCH ×4 (06:15→22:09)
[2019-07-09 06:31] LABS: BASOPHILS % (AUTO) 0 % (0-10); EOSINOPHILS # (AUTO) 0.5 10^3/uL (0.0-0.3); EOSINOPHILS % (AUTO) 5 % (0-10); HEMATOCRIT 29 % (40-54); HEMOGLOBIN 9.9 G/DL (13.3-17.7); LYMPHOCYTES # (AUTO) 1.2 X 10^3 (1.0-4.0); LYMPHOCYTES % (AUTO) 11 % (12-44); MEAN CORPUSCULAR HEMOGLOBIN 33 PG (25-34); MEAN CORPUSCULAR HGB CONC 34 G/DL (32-36); MEAN CORPUSCULAR VOLUME 96 FL (80-99); MONOCYTES # (AUTO) 1.5 X 10^3 (0.0-1.0); MONOCYTES % (AUTO) 14 % (0-12); NEUTROPHILS # (AUTO) 7.9 X 10^3 (1.8-7.8); NEUTROPHILS % (AUTO) 71 % (42-75); PLATELET COUNT 365 10^3/uL (130-400); RED CELL DISTRIBUTION WIDTH 13.7 % (10.0-14.5); WHITE BLOOD COUNT 11.2 10^3/uL (4.3-11.0)
[2019-07-09 06:51] LABS: ALANINE AMINOTRANSFERASE 35 U/L (0-55); ALKALINE PHOSPHATASE 62 U/L (40-136); BILIRUBIN,TOTAL 0.6 MG/DL (0.1-1.0); BUN/CREATININE RATIO 8; CALCIUM 8.5 MG/DL (8.5-10.1); CARBON DIOXIDE 22 MMOL/L (21-32); CHLORIDE 106 MMOL/L (98-107); CREATININE SERUM 0.75 MG/DL (0.60-1.30); GFR ESTIMATED > 60; GLUCOSE 122 MG/DL (70-105); POTASSIUM 3.4 MMOL/L (3.6-5.0); SODIUM 136 MMOL/L (135-145); TOTAL PROTEIN 5.7 GM/DL (6.4-8.2)
[2019-07-09] MEDS: ADVAIR 250 MCG/50 MCG (NON-FORMULARY) IH SCH ×2 (07:44→22:35)
[2019-07-09] MEDS: ALBUTEROL IH PRN (07:44)
[2019-07-09] MEDS: FAMOTIDINE 20 MG (PEPCID) TABLET PO SCH ×2 (08:30→20:23)
[2019-07-09] MEDS: LACTULOSE SYRUP 10GM/15ML (ENULOSE) 30ML UDC PO PRN (08:30)
[2019-07-09] MEDS: LORATADINE (CLARITIN) 10 MG TAB PO SCH (08:30)
[2019-07-09] MEDS: LOSARTAN 50 MG (COZAAR) TAB PO SCH (08:30)
[2019-07-09] MEDS: SENNA W/DOCUSATE (SENOKOT S) TABLET PO SCH ×2 (08:30→20:23)
[2019-07-09] MEDS: fluCOnazole (DIFLUCAN) 100 MG TAB PO SCH (08:30)
[2019-07-09] MEDS: CARVEDILOL 3.125 MG (COREG) TABLET PO SCH ×2 (08:30→20:23)
[2019-07-09] MEDS: DOCUSATE SODIUM 100 MG (COLACE) CAP PO SCH ×2 (08:30→20:23)
[2019-07-09] MEDS: polyethylene glycoL POWDER 17 GM (MIRALAX) PACK PO SCH ×2 (08:31→20:24)
--- NOTE | 2019-07-09 08:35 | Cardiology Progress Note ---
Subjective Date Seen by Provider: Jul 09, 2019 Time Seen by Provider: 08:32 Subjective/Events-last exam Patient is sitting up in chair, no new complaints. Continues to have constipation. Denies any chest pain or dyspnea. Review of Systems General: No Chills, No Night Sweats; Fatigue; No Malaise, No Appetite, No Other HEENT: No Head Aches, No Visual Changes, No Eye Pain, No Ear Pain, No Dysphasia, No Sinus Congestion, No Post Nasal Drip, No Sore Throat, No Other Pulmonary: Dyspnea; No Cough, No Pleuritic Chest Pain, No Other Cardiovascular: Edema; No: Chest Pain, Palpitations, Orthopnea, Paroxysmal Noc. Dyspnea, Lt Headedness, Other Objective-Cardiology Exam Last Set of Vital Signs Vital Signs 07/09/19 07/09/19 07/09/19 05:17 07:44 09:00 Temp 37.1 Pulse 77 Resp 18 B/P (MAP) 145/69 (94) Pulse Ox 94 O2 Delivery Room Air Capillary Refill : Less Than 3 Seconds I&O Intake and Output 07/09/19 00:00 Intake Total 2272 ml Output Total 2100 ml Balance 172 ml Intake Oral 1735 ml IV Total 537 ml Output Urine Total 2100 ml # Voids 4 General: Alert, Oriented X3, Cooperative HEENT: Atraumatic, PERRLA Neck: Supple, No JVD, No Thyromegaly Lungs: Other (diminished BS bibasilarly) Heart: Regular Rate, No Murmurs Abdomen: No Tenderness, No Hepatosplenomegaly Extremities: Other (+1-2 edema BLE) Skin: No Rashes, No Significant Lesion Neuro: Normal Speech, Cranial Nerves 3-12 NL Psych/Mental Status: Mental Status NL, Mood NL Results Lab Laboratory Tests 07/09/19 06:15 A/P-Cardiology Admission Diagnosis Coronary artery disease Debility COPD Hypertension Assessment/Plan Spinal stenosis, had recent surgery, recovering slowly, generalized weakness and debility, receiving physical therapy. COPD, obstructive sleep apnea, shortness of breath on exertion. Status post pneumonia, recovering slowly and improving Coronary artery disease, history of multiple intervention in the past, had a stress test done in May 2019 showing no ischemia or infarction. Normal EF. Continue to monitor Peripheral edema, Add Lasix and monitor electrolytes Hypertension, controlled, continue to monitor. Hyperlipidemia. Continue to monitor lipids Morbid obesity, BMI 38, receiving physical therapy. Electrolyte imbalance, managed by primary care physician Constipation, management by PCP Patient was seen and evaluated with Yoon, examination performed, management plan was discussed, agree with the current scribed note, I made few changes to the note using Italic font Clinical Quality Measures DVT/VTE Risk/Contraindication: Risk Factor Score Per Nursin RFS Level Per Nursing on Admit: 4+=Very High YOON CASTRO Jul 09, 2019 8:35 am ADRYAN NAVARRO MD Jul 09, 2019 11:25 am
--- NOTE | 2019-07-09 08:38 | PM&R Progress Note ---
Subjective HPI/CC On Admission Date Seen by Provider: Jul 09, 2019 Time Seen by Provider: 08:45 Subjective/Events-last exam IV antibiotics will be changed to PO. No BM, and soap suds enema will be ordered since that was very effective last time. Potassium 10 mEQ will be given BID and he agrees. Overall stable but slow progress Patient now aware it is unrealistic to think of DC Tuesday as he originally suly nned Conferred with RN Reviewed therapy notes Checked meds and labs Review of Systems Gastrointestinal: Constipation Musculoskeletal: back pain Objective Exam Vital Signs Vital Signs Date Time Temp Pulse Resp B/P (MAP) Pulse Ox O2 Delivery O2 Flow Rate FiO2 07/09/19 20:25 Room Air 07/09/19 17:27 37.2 80 18 119/69 (86) 94 Capillary Refill : Less Than 3 Seconds General Appearance: No Apparent Distress, WD/WN, Chronically ill, Obese HEENT: PERRL/EOMI, Normal ENT Inspection, Pharynx Normal Neck: Full Range of Motion, Normal Inspection, Non Tender, Supple, Carotid Bruit Respiratory: Chest Non Tender, Lungs Clear, Normal Breath Sounds, No Accessory Muscle Use, No Respiratory Distress Cardiovascular: Regular Rate, Rhythm, No Edema, No Gallop, No JVD, No Murmur, Normal Peripheral Pulses Gastrointestinal: Normal Bowel Sounds, No Organomegaly, No Pulsatile Mass, Non Tender, Soft Back: Decreased Range of Motion, Muscle Spasm, Vertebral Tenderness Extremity: Normal Capillary Refill, Normal Inspection, Normal Range of Motion, Non Tender, No Calf Tenderness, No Pedal Edema Neurologic/Psychiatric: Alert, Oriented x3, No Motor/Sensory Deficits, Normal 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 FIM Transfers Therapy Code Descriptions/Definitions Functional [address] Measure: 0=Not Assessed/NA 4=Minimal Assistance 1=Total Assistance 5=Supervision or Setup 2=Maximal Assistance 6=Modified [address] 3=Moderate Assistance 7=Complete IndependenceSCALE: Activities may be completed with or without assistive devices. 1-Nsuhwooorw-bkvgzta completes the activity by him/herself with no assistance from a helper. 5-Set-up or Clean-up Assistance-helper sets up or cleans up; patient completes activity. [place] assists only prior to or following the activity. 4-Supervision or Touching Assistance-helper provides verbal cues and/or touching/steadying and/or contact guard assistance as patient completes activity. Assistance may be provided throughout the activity or intermittently. 3-Partial/Moderate Assistance-helper does LESS THAN HALF the effort. [place] lifts, holds or supports trunk or limbs, but provides less than half the effort. 2-Substantial/Maximal Assistance-helper does MORE THAN HALF the effort. [place] lifts or holds trunk or limbs and provides more than half the effort. 7-Fjpwsxwgs-sdbxwn does ALL the effort. Patient does none of the effort to complete the activity. Or, the assistance of 2 or more helpers is required for the patient to complete the activity. If activity was not attempted, code reason: 7-Patient Refused. 9-Not Applicable-not attempted and the patient did not perform the activity before the current illness, exacerbation or injury. 10-Not Attempted due to Environmental Limitations-(lack of equipment, weather restraints, etc.). 88-Not Attempted due to Medical Conditions or Safety Concerns. Roll Left to Right (QC): 3 Sit to Lying (QC): 3 Sit to Stand (QC): 4 Chair/Dfo-cz-Dbxsu Xfer(QC): 4 Car Transfer (QC): 88 (pt unsafe to attempt this date. ) Gait Training Does the Patient Walk?: Yes Distance: 20 Walk 10 feet (QC): 4 Walk 50 ft with 2 Turns(QC): 3 Walk 150 ft (QC): 88 Walking 10ft/uneven surface-QC: 88 Gait Persons Needed: 1 Gait Assistive Device: FWW Wheelchair Training Does the Pt Use a Wheelchair?: No Stair Training 1 Step (curb) (QC): 88 4 Steps (QC): 88 12 Steps (QC): 88 Balance Picking up an Object (QC): 88 (contraindicated with recent back surgery.) ADL-Treatment Eating (QC): 6 Oral Hygiene (QC): 7 Shower/Bathe Self (QC): 3 Upper Body Dressing (QC): 7 Lower Body Dressing (QC): 2 On/Off Footwear (QC): 2 Toileting Hygiene (QC): 4 Assessment/Plan Assessment and Plan Assess & Plan/Chief Complaint Assessment: Lumbar stenosis with radiculopathy post op with severe debility PNA acute Sepsis DIONNE on biPAP HTN CAD Plan: IRF protocol but slow process 25/12 due to PNA and severe debility BM regimen Patient refuses a lot of meds and interventions Much improved today (1) Stenosis, spinal, lumbar (2) Coronary artery disease Status: Acute (3) Pneumonia Status: Acute (4) Lumbar radiculopathy (5) Sepsis (6) Leukocytosis (7) Non-compliance (8) Constipation (9) Hypertension (10) DIONNE treated with BiPAP (11) Lactic acid acidosis AYDE FRANCO DO Jul 09, 2019 08:38
--- NOTE | 2019-07-09 08:59 | Occupational Ther Daily Note ---
OT Current Status-Daily Note Subjective Pt seen in chair, c/o 11/20 pain. Pt agreeable to OT tx session with goals of showering. Mental Status/Objective Patient Orientation: Normal For Age ADL-Treatment Therapy Code Descriptions/Definitions Functional [place] Measure: 0=Not Assessed/NA 4=Minimal Assistance 1=Total Assistance 5=Supervision or Setup 2=Maximal Assistance 6=Modified [place] 3=Moderate Assistance 7=Complete IndependenceSCALE: Activities may be completed with or without assistive devices. 6-Otfipthxxi-qvvngpi completes the activity by him/herself with no assistance from a helper. 5-Set-up or Clean-up Assistance-helper sets up or cleans up; patient completes activity. [place] assists only prior to or following the activity. 4-Supervision or Touching Assistance-helper provides verbal cues and/or touching/steadying and/or contact guard assistance as patient completes activity. Assistance may be provided throughout the activity or intermittently. 3-Partial/Moderate Assistance-helper does LESS THAN HALF the effort. [place] lifts, holds or supports trunk or limbs, but provides less than half the effort. 2-Substantial/Maximal Assistance-helper does MORE THAN HALF the effort. [place] lifts or holds trunk or limbs and provides more than half the effort. 1-Qfrgpobzl-fexmma does ALL the effort. Patient does none of the effort to complete the activity. Or, the assistance of 2 or more helpers is required for the patient to complete the activity. If activity was not attempted, code reason: 7-Patient Refused. 9-Not Applicable-not attempted and the patient did not perform the activity before the current illness, exacerbation or injury. 10-Not Attempted due to Environmental Limitations-(lack of equipment, weather restraints, etc.). 88-Not Attempted due to Medical Conditions or Safety Concerns. Eating (QC): 6 Shower/Bathe Self (QC): 4 (Pt declines shower, states rather would take sponge bath. Pt s/u for sponge bath, able to reach all areas with hands/ LHS. Pt requires SBA-CGA in stance during layne/ bottom hygiene.) Upper Body Dressing (QC): 2 (s/uPt refuses back brace while in stance due to pressure in abdomen from constipation. Pt agrees to put on post-BM which he states "will be soon"Post-bathroom routine (no BM) pt requires max A for back brace placement. Due to placement of back brace and tension required to don, pt likely not able to don at home and maintain precautions. Pt states unable to assist in donning due to decreased strength/ care transport nurse. ) Lower Body Dressing (QC): 4 (SBA in stance. Pt able to don with use of canvas goods maker and s/u for underwear/ pants.) On/Off Footwear: 4 (min cues for use of sock aide.) Toileting Hygiene (QC): 4 (SBA in stance.) Toilet Transfer (QC): 4 (CGA to toilet.) Other Treatment Pt completes showering in recliner chair, pt c/o pain and need for BM. Pt dismisses cues for use of AE, then after own trial completes with OT cues. Pt maintains back precautions throughout, plans to dress in chair at home. Pt states he does not want to put pants on as he plans to stay in room. Pt educated on therapy role and need to continually progress. Pt agrees to work in room, states he'd rather completes UE theraband exercises: completes HEP (10 reps bilaterally of back flies, external shoulder rotation, biceps, triceps, and scaption) with min cues for placement/ tension. Pt educated on PT post-OT session, pt agrees to pants and back brace. Pt left in room with call light in reach, all needs met. Education OT Patient Education: Correct positioning, Exercise program, Home exercise program, Modified ADL techniques, Purpose of tx/functional activities, Rehab process, Use of adapted equipment Teaching Recipient: Patient Teaching Methods: Demonstration, Discussion Response to Teaching: Verbalize Understanding, Return Demonstration, Reinforcement Needed OT Short Term Goals Short Term Goals Time Frame: Jul 12, 2019 Eatin Oral hygiene: 6 Toileting hygiene: 3 Shower/bathe self: 3 Upper body dressin Lower body dressin Putting on/taking off footwear: 3 OT Shelter Goals Credit Checker Goals Time Frame: Jul 19, 2019 Eating (QC): 6 Oral Hygiene (QC): 6 Toileting Hygiene (QC): 6 Shower/Bathe Self (QC): 6 Upper Body Dressing (QC): 6 Lower Body Dressing (QC): 6 On/Off Footwear (QC): 6 Additional Goals: 1-Demonstrate ADL Tasks, 2-Verbalize Understanding, 3-ImproveStrength/Melissa 1=Demonstrate adherence to instructed precautions during ADL tasks. 2=Patient will verbalize/demonstrate understanding of assistive devices/modifications for ADL. 3=Patient will improve strength/tolerance for activity to enable patient to perform ADL's. OT Education/Plan Problem List/Assessment Assessment: Decreased Activ Tolerance, Decreased UE Strength, Edema (BLE), Impaired Funct Balance, Impaired I ADL's, Impaired Self-Care Skills Discharge Recommendations Plan/Recommendations: Continue POC Treatment Plan/Plan of Care Treatment,Training & Education: Yes Patient would benefit from OT for education, treatment and training to promote independence in ADL's, mobility, safety and/or upper extremity function for ADL's. Plan of Care: ADL Retraining, Caregiver Training, Concurrent Therapy, Functional Mobility, Group Exercise/Act as Ind, Orthotic Fitting/Training, UE Funct Exercise/Act Treatment Duration: Jul 19, 2019 Frequency: At least 5 of 7 days/Wk (IRF) Estimated Hrs Per Day: 1.5 hours per day Agreement: Yes Rehab Potential: Good Time/GCodes Start Time: 08:00 Stop Time: 09:30 Total Time Billed (hr/min): 90 Billed Treatment Time 1, ADL 5 (75), EX (15) (90) YASIR VALLADARES OTR Jul 09, 2019 08:59
--- NOTE | 2019-07-09 09:00 | NUR ---
PT REFUSES LOVENOX INJECTION. NOTIFIED. OK'D TO D/C LOVENOX.
[2019-07-09] MEDS: KCL 10 MEQ TAB (MICRO K) PO SCH ×2 (09:44→17:11)
[2019-07-09] MEDS: ENOXAPARIN 40 MG/0.4 ML (LOVENOX) SYR SC SCH (09:52)
--- NOTE | 2019-07-09 10:58 | Physical Therapy Daily Note ---
PT Daily Note-Current Subjective Patient in recliner pre tx, agrees to PT, has 8/10 pain in back and right ribs area, nurse gives patient pain meds during treatment. Patient's brace doesn't fit him at this time due to his abdominal swelling/distension, patient instructed to not bend or twist during therapy (without brace) in order to protect his back and he does this appropriately. Appearance Patient on toilet post tx with nurse call, instructed to call nurse when done. Mental Status Patient Orientation: Person, Place, Normal For Age back brace Transfers SCALE: Activities may be completed with or without assistive devices. 2-Lfatkleusp-nyklpve completes the activity by him/herself with no assistance from a helper. 5-Set-up or Clean-up Assistance-helper sets up or cleans up; patient completes activity. [place] assists only prior to or following the activity. 4-Supervision or Touching Assistance-helper provides verbal cues and/or touching/steadying and/or contact guard assistance as patient completes activity . Assistance may be provided throughout the activity or intermittently. 3-Partial/Moderate Assistance-helper does LESS THAN HALF the effort. [place] lifts, holds or supports trunk or limbs, but provides less than half the effort. 2-Substantial/Maximal Assistance-helper does MORE THAN HALF the effort. [place] lifts or holds trunk or limbs and provides more than half the effort. 1-Mgolwauhh-znpqpx does ALL the effort. Patient does none of the effort to complete the activity. Or, the assistance of 2 or more helpers is required for the patient to complete the activity. If activity was not attempted, code reason: 7-Patient Refused. 9-Not Applicable-not attempted and the patient did not perform the activity before the current illness, exacerbation or injury. 10-Not Attempted due to Environmental Limitations-(lack of equipment, weather restraints, etc.). 88-Not Attempted due to Medical Conditions or Safety Concerns. Sit to Stand (QC): 4 Chair/Jvm-qr-Uuuih Xfer(QC): 4 SBA, slow and antalgic transfers but doesn't need assist. Good use of hands on armrests. Weight Bearing Right Lower Extremity: Right Full Weight Bearing Left Lower Extremity: Left Full Weight Bearing Gait Training Distance: 40'x6 Walk 10 feet (QC): 4 Gait Assistive Device: FWW Slow but steady ambulation, no knee buckling, antalgic. Exercises Standing: Hamstring curls, Heel/toe raises, Mini squats, Step-ups (just toe touches on a step) Standing Reps: 15 LAQ alternating for 5 min Treatments transfers, ambulation, functional strengthening Assessment Current Status: Fair Progress improved ambulation, increased pain PT Short Term Goals Short Term Goals Time Frame: Jul 12, 2019 Sit to lyin Lying to sitting on side of be: 4 Sit to stand: 5 Chair/bap-zu-qvwtr transfer: 5 Walk 150 feet: 4 1 step (curb): 4 PT [employer] Blasting Goals [employer] Goals PT [employer] Goals Time Frame: Jul 20, 2019 Roll Left & Right (QC): 6 Sit to Lying (QC): 6 Lying-Sitting on Side/Bed(QC): 6 Sit to Stand (QC): 6 Chair/Xcx-po-Yzznx Xfer(QC): 6 Toilet Transfer (QC): 6 Car Transfer (QC): 5 Does the Patient Walk: Yes Walk 10 feet (QC): 6 Walk 50ft with 2 Turns (QC): 6 Walk 150 ft (QC): 6 Walking 10ft on Uneven Surface: 6 1 Step (curb) (QC): 6 4 Steps (QC): 6 12 Steps (QC): 9 Picking up an Object (QC): 88 Does the Pt use WC or Scooter?: No PT Plan Problem List Problem List: Activity Tolerance, Functional Strength, Safety, Balance, Gait, Transfer, Bed Mobility, ROM Treatment/Plan Treatment Plan: Continue Plan of Care Treatment Plan: Bed Mobility, Education, Functional Activity Melissa, Functional Strength, Group Therapy, Gait, Safety, Therapeutic Exercise, Transfers Treatment Duration: Jul 20, 2019 Frequency: Modified Program (IRF) (25/12 per physician) Estimated Hrs Per Day: 1.5 hours per day (1 to 1.5) Patient and/or Family Agrees t: Yes Safety Risks/Education Patient Education: Gait Training, Transfer Techniques, Reviewed Precautions, Reviewed Don/Doff Brace, Safety Issues Teaching Recipient: Patient Teaching Methods: Demonstration, Discussion Response to Teaching: Reinforcement Needed Time/GCodes Time In: 0930 Time Out: 1100 Total Billed Treatment 1 visit EX 30' GT 60' RHONDA STEPHENS PT Jul 09, 2019 10:58
--- NOTE | 2019-07-09 12:56 | Pulmonary Progress Note ---
Subjective Date Seen by a Provider: Jul 09, 2019 Time Seen by a Provider: 12:53 Subjective/Events-last exam Pt appears to be doing much better. Sepsis Event Evaluation Height, Weight, BMI Height: 5'10.00" Weight: 237lbs. 0.0oz. 107.993264qf; 37.98 BMI Method:Stated Exam Exam Vital Signs Date Time Temp Pulse Resp B/P (MAP) Pulse Ox O2 Delivery O2 Flow Rate FiO2 07/09/19 09:00 Room Air 07/09/19 07:44 94 Room Air 07/09/19 05:17 37.1 77 18 145/69 (94) 96 Room Air 07/08/19 21:00 Room Air 07/08/19 20:00 77 145/76 (99) 07/08/19 19:04 96 07/08/19 19:04 94 07/08/19 17:48 37.0 90 16 156/80 (105) 96 Room Air I & O 07/09/19 07:00 Intake Total 2150 ml Output Total 1050 ml Balance 1100 ml Height & Weight Height: 5'10.00" Weight: 237lbs. 0.0oz. 107.757368og; 37.98 BMI Method:Stated General Appearance: No Apparent Distress, WD/WN, Chronically ill, Obese HEENT: PERRL/EOMI, Normal ENT Inspection, Pharynx Normal Neck: Full Range of Motion, Normal Inspection, Non Tender, Supple, Carotid Bruit Respiratory: Chest Non Tender, No Accessory Muscle Use, No Respiratory Distress, Decreased Breath Sounds Cardiovascular: Regular Rate, Rhythm, No Edema, No Gallop, No JVD, No Murmur, Normal Peripheral Pulses Capillary Refill: Less Than 3 Seconds Extremity: Normal Capillary Refill, Normal Inspection, Normal Range of Motion, Non Tender, No Calf Tenderness, No Pedal Edema Neurologic/Psychiatric: Alert, Oriented x3, No Motor/Sensory Deficits, Normal Mood/Affect, ortho rn II-XII Norm as Tested, Motor Weakness (lower legs) Skin: Normal Color, Warm/Dry Lymphatic: No Adenopathy Results Lab Laboratory Tests 07/08/19 05:10 07/09/19 06:15 Assessment/Plan Assessment/Plan Severe COPD -Duoneb -Oxygen -Monitor [place] -Change IV Abx to Omnicef PO -Await cultures -monitor labs Morbid obesity CAD Debility History of LBP with resultant need for surgery. s/p Fusion L2-5 with laminectomy VENKAT APARICIO DO Jul 09, 2019 12:56
[2019-07-09] MEDS: FUROSEMIDE 20 MG (LASIX) TAB PO SCH ×2 (13:54→17:12)
[2019-07-09 17:27] VITALS: BP_SYST 119; BP_SYST 125; BP_DIAS 69
--- NOTE | 2019-07-09 18:15 | NUR ---
CONSTIPATION. PT HAS TAKEN COLACE, SENNA, MIRALAX, LACTULOSE TODAY. PT REFUSES ENEMA. VOICES, "IT'S NOT THE RIGHT TIMING." THIS RN AND SECOND RN ON FLOOR UNABLE TO CONVINCE PT TO TRY ENEMA. PT VOICES, "I WILL TAKE IT FIRST THING IN THE MORNING."
--- NOTE | 2019-07-09 19:12 | NUR ---
bedside report received from CASSIE CORTÉS, assume care of pt
[2019-07-09 20:15] VITALS: BP 117/73
[2019-07-09] MEDS: CEFDINIR 300 MG (OMNICEF) CAP PO SCH (20:23)
--- NOTE | 2019-07-09 20:23 | NUR ---
pt took Colace, Senokot & miralax but refused singular
[2019-07-09] MEDS: MONTELUKAST 10 MG (SINGULAIR) TAB PO SCH (20:30)
--- NOTE | 2019-07-09 23:05 | NUR ---
pt c/o back pain level 6/10 on numeric scale, requests 2 Lortab 5 tabs, also requests Benadryl 25mg for nasal drainage
--- NOTE | 2019-07-09 23:10 | NUR ---
pt told this nurse not to wake him for 0200am Mycostatin
--- NOTE | 2019-07-09 23:55 | NUR ---
resting quietly in bed, pain level 0/10 on flacc scale
[2019-07-10] MEDS: NYSTATIN ORAL SUSP 5 ML UDC PO SCH ×4 (02:00→20:23)
[2019-07-10] MEDS: HYDROcodone/APAP 5 MG/325 MG (LORTAB) TAB PO PRN ×4 (03:10→18:43)
--- NOTE | 2019-07-10 03:10 | NUR ---
c/o back pain level 6/10 on numeric scale, Lortab 5 2 tabs given
--- NOTE | 2019-07-10 03:50 | NUR ---
resting quietly in bed, pain level 0/10 on flacc scale
[2019-07-10 05:43] VITALS: BP 134/79
[2019-07-10] MEDS: MULTIVIT W/MINERALS TAB (THERAGRAN M) PO SCH (06:41)
[2019-07-10] MEDS: KCL 10 MEQ TAB (MICRO K) PO SCH ×2 (06:41→16:37)
[2019-07-10] MEDS: CATHETER FLUSH 10 ML SYR IV SCH ×3 (06:41→21:00)
[2019-07-10] MEDS: FUROSEMIDE 20 MG (LASIX) TAB PO SCH ×2 (06:41→16:37)
--- NOTE | 2019-07-10 07:10 | NUR ---
c/o back & rt sided pain level 7/10 on numeric scale, lortab 5 2 tabs given
[2019-07-10] MEDS: SENNA W/DOCUSATE (SENOKOT S) TABLET PO SCH ×2 (08:02→20:23)
[2019-07-10] MEDS: CARVEDILOL 3.125 MG (COREG) TABLET PO SCH ×2 (08:02→20:23)
[2019-07-10] MEDS: FAMOTIDINE 20 MG (PEPCID) TABLET PO SCH ×2 (08:02→20:23)
[2019-07-10] MEDS: LOSARTAN 50 MG (COZAAR) TAB PO SCH (08:02)
[2019-07-10] MEDS: LORATADINE (CLARITIN) 10 MG TAB PO SCH (08:02)
[2019-07-10] MEDS: fluCOnazole (DIFLUCAN) 100 MG TAB PO SCH (08:02)
[2019-07-10] MEDS: DOCUSATE SODIUM 100 MG (COLACE) CAP PO SCH ×2 (08:02→20:23)
[2019-07-10] MEDS: CEFDINIR 300 MG (OMNICEF) CAP PO SCH ×2 (08:02→20:23)
[2019-07-10] MEDS: polyethylene glycoL POWDER 17 GM (MIRALAX) PACK PO SCH ×2 (08:02→20:59)
--- NOTE | 2019-07-10 08:03 | PM&R Progress Note ---
Subjective HPI/CC On Admission Date Seen by Provider: Jul 10, 2019 Time Seen by Provider: 08:00 Subjective/Events-last exam No bowel movement since 07/07 willingly will agree to soap suds enema Thrush treated with Nystatin swish and swallow Edema will be given Lasix Lovenox discontinued after two days Pt not feeling really well today IV antibiotics switched to Omnicef Conferred with RN Reviewed therapy notes Checked meds and labs Review of Systems General: Fatigue Pulmonary: Cough Gastrointestinal: Constipation Musculoskeletal: back pain Objective Exam Vital Signs Vital Signs Date Time Temp Pulse Resp B/P (MAP) Pulse Ox O2 Delivery O2 Flow Rate FiO2 07/10/19 17:05 37.4 85 20 120/75 (90) 92 Room Air Capillary Refill : Less Than 3 Seconds General Appearance: No Apparent Distress, WD/WN, Chronically ill, Obese HEENT: PERRL/EOMI, Normal ENT Inspection, Pharynx Normal Neck: Full Range of Motion, Normal Inspection, Non Tender, Supple, Carotid Br uit Respiratory: Chest Non Tender, Lungs Clear, Normal Breath Sounds, No Accessory Muscle Use, No Respiratory Distress Cardiovascular: Regular Rate, Rhythm, No Edema, No Gallop, No JVD, No Murmur, Normal Peripheral Pulses Gastrointestinal: Normal Bowel Sounds, No Organomegaly, No Pulsatile Mass, Non Tender, Soft Back: Decreased Range of Motion, Muscle Spasm, Vertebral Tenderness Extremity: Normal Capillary Refill, Normal Inspection, Normal Range of Motion, Non Tender, No Calf Tenderness, No Pedal Edema Neurologic/Psychiatric: Alert, Oriented x3, No Motor/Sensory Deficits, Normal Mood/Affect, juvenile justice specialist II-XII Norm as Tested, Motor Weakness (lower legs) Skin: Normal Color, Warm/Dry Lymphatic: No Adenopathy Results/Procedures Lab Patient resulted labs reviewed. FIM Transfers Therapy Code Descriptions/Definitions Functional [place] Measure: 0=Not Assessed/NA 4=Minimal Assistance 1=Total Assistance 5=Supervision or Setup 2=Maximal Assistance 6=Modified [place] 3=Moderate Assistance 7=Complete IndependenceSCALE: Activities may be completed with or without assistive devices. 0-Lxsnalrzuf-ykewclo completes the activity by him/herself with no assistance from a helper. 5-Set-up or Clean-up Assistance-helper sets up or cleans up; patient completes activity. [place] assists only prior to or following the activity. 4-Supervision or Touching Assistance-helper provides verbal cues and/or touching/steadying and/or contact guard assistance as patient completes activity. Assistance may be provided throughout the activity or intermittently. 3-Partial/Moderate Assistance-helper does LESS THAN HALF the effort. [place] lifts, holds or supports trunk or limbs, but provides less than half the effort. 2-Substantial/Maximal Assistance-helper does MORE THAN HALF the effort. [place] lifts or holds trunk or limbs and provides more than half the effort. 3-Qixpjkbuq-qlqnru does ALL the effort. Patient does none of the effort to complete the activity. Or, the assistance of 2 or more helpers is required for the patient to complete the activity. If activity was not attempted, code reason: 7-Patient Refused. 9-Not Applicable-not attempted and the patient did not perform the activity before the current illness, exacerbation or injury. 10-Not Attempted due to Environmental Limitations-(lack of equipment, weather restraints, etc.). 88-Not Attempted due to Medical Conditions or Safety Concerns. Roll Left to Right (QC): 3 Sit to Lying (QC): 3 Sit to Stand (QC): 4 Chair/Bzn-vk-Buwva Xfer(QC): 4 Car Transfer (QC): 88 (pt unsafe to attempt this date. ) Gait Training Does the Patient Walk?: Yes Distance: 40'x6 Walk 10 feet (QC): 4 Walk 50 ft with 2 Turns(QC): 3 Walk 150 ft (QC): 88 Walking 10ft/uneven surface-QC: 88 Gait Persons Needed: 1 Gait Assistive Device: FWW Wheelchair Training Does the Pt Use a Wheelchair?: No Stair Training 1 Step (curb) (QC): 88 4 Steps (QC): 88 12 Steps (QC): 88 Balance Picking up an Object (QC): 88 (contraindicated with recent back surgery.) ADL-Treatment Eating (QC): 6 Oral Hygiene (QC): 7 Shower/Bathe Self (QC): 4 (Pt declines shower, states rather would take sponge bath. Pt s/u for sponge bath, able to reach all areas with hands/ LHS. Pt requires SBA-CGA in stance during layne/ bottom hygiene.) Upper Body Dressing (QC): 2 (s/uPt refuses back brace while in stance due to pressure in abdomen from constipation. Pt agrees to put on post-BM which he states "will be soon"Post-bathroom routine (no BM) pt requires max A for back brace placement. Due to placement of back brace and tension required to don, pt likely not able to don at home and maintain precautions. Pt states unable to assist in donning due to decreased strength/ house manager. ) Lower Body Dressing (QC): 4 (SBA in stance. Pt able to don with use of commutator v ring assembler and s/u for underwear/ pants.) On/Off Footwear (QC): 4 (min cues for use of sock aide.) Toileting Hygiene (QC): 4 (SBA in stance.) Toilet Transfer (QC): 4 (CGA to toilet.) Assessment/Plan Assessment and Plan Assess & Plan/Chief Complaint Assessment: Lumbar stenosis with radiculopathy post op with severe debility PNA acute Sepsis DIONNE on biPAP HTN CAD Plan: IRF protocol but slow process 25/12 due to PNA and severe debility BM regimen Patient refuses a lot of meds and interventions Much improved today (1) Stenosis, spinal, lumbar (2) Coronary artery disease Status: Acute (3) Pneumonia Status: Acute (4) Lumbar radiculopathy (5) Sepsis (6) Leukocytosis (7) Non-compliance (8) Constipation (9) Hypertension (10) DIONNE treated with BiPAP (11) Lactic acid acidosis AYDE FRANCO DO Jul 10, 2019 08:03
[2019-07-10] MEDS: LACTULOSE SYRUP 10GM/15ML (ENULOSE) 30ML UDC PO PRN (08:04)
[2019-07-10] MEDS: CYCLOBENZAPRINE 10 MG (FLEXERIL) TAB PO PRN ×2 (08:06→16:46)
--- NOTE | 2019-07-10 08:15 | Cardiology Progress Note ---
Subjective Date Seen by Provider: Jul 10, 2019 Time Seen by Provider: 08:13 Subjective/Events-last exam Patient is sitting up in chair, denies any chest pain or dyspnea. Denies ab dominal pain. Review of Systems General: No Chills, No Night Sweats, No Fatigue, No Malaise, No Appetite, No Other HEENT: No Head Aches, No Visual Changes, No Eye Pain, No Ear Pain, No Dysphasia, No Sinus Congestion, No Post Nasal Drip, No Sore Throat, No Other Pulmonary: No Dyspnea, No Cough, No Pleuritic Chest Pain, No Other Cardiovascular: No: Chest Pain, Palpitations, Orthopnea, Paroxysmal Noc. Dyspnea, Edema, Lt Headedness, Other Gastrointestinal: Constipation Objective-Cardiology Exam Last Set of Vital Signs Vital Signs 07/10/19 07/10/19 05:43 09:00 Temp 36.4 Pulse 71 Resp 18 B/P (MAP) 134/79 (97) Pulse Ox 98 O2 Delivery Room Air Capillary Refill : Less Than 3 Seconds I&O Intake and Output 07/10/19 00:00 Intake Total 1835 ml Output Total 1000 ml Balance 835 ml Intake Oral 1300 ml IV Total 535 ml Output Urine Total 1000 ml # Voids 7 General: Alert, Oriented X3, Cooperative HEENT: Atraumatic, PERRLA Neck: Supple, No JVD, No Thyromegaly Lungs: Other (diminished BS bibasilarly) Heart: Regular Rate, No Murmurs Abdomen: No Tenderness, No Hepatosplenomegaly Extremities: Other (+1-2 edema BLE) Skin: No Rashes, No Significant Lesion Neuro: Normal Speech, Cranial Nerves 3-12 NL Psych/Mental Status: Mental Status NL, Mood NL A/P-Cardiology Admission Diagnosis Coronary artery disease Debility COPD Hypertension Assessment/Plan Spinal stenosis, had recent surgery, recovering slowly, generalized weakness and debility, receiving physical therapy. COPD, obstructive sleep apnea, shortness of breath on exertion. Status post pneumonia, recovering slowly and improving Coronary artery disease, history of multiple intervention in the past, had a stress test done in May 2019 showing no ischemia or infarction. Normal EF. Continue to monitor Peripheral edema, started on Lasix, continue to monitor Hypertension, controlled, continue to monitor. Hyperlipidemia. Continue to monitor lipids Morbid obesity, BMI 38, receiving physical therapy. Electrolyte imbalance, managed by primary care physician Constipation, management by PCP Patient was seen and evaluated with Yoon, examination performed, management plan was discussed, agree with the current scribed note, I made few changes to the note using Italic font Patient is sitting in a chair comfortable, feeling better. Continue to monitor blood pressure, no changes are recommended Clinical Quality Measures DVT/VTE Risk/Contraindication: Risk Factor Score Per Nursin RFS Level Per Nursing on Admit: 4+=Very High YOON CASTRO Jul 10, 2019 8:15 am ADRYAN NAVARRO MD Jul 10, 2019 12:53 pm
--- NOTE | 2019-07-10 09:38 | NUR ---
SENOKOT, COLACE, MIRALAX, AND LACTULOSE GIVEN. PATIENT AGREES TO ENEMA IF NO BM BY THIS AFTERNOON.
--- NOTE | 2019-07-10 10:02 | NUR ---
Pastoral care visit.
--- NOTE | 2019-07-10 10:29 | NUR ---
PATIENT MAY BE UP AD MEAGHAN TO THE BR WITH A FWW PER NOE ELLIS.
--- NOTE | 2019-07-10 10:40 | Physical Therapy Daily Note ---
PT Daily Note-Current Subjective Patient in recliner pre tx, agrees to PT, has 7/10 pain in back and right rib area. Patient states he has much more pain today and is very tired. His abdomen is still distended and he says he has not had a BM yet. His back brace doesn't fit him due to this and is very painful for him. Will not use brace this morning, patient educated on not bending/twisting back and to keep good posture during activity. Appearance Patient in recliner post tx with nurse call, phone, tray, all needs met. Mental Status Patient Orientation: Normal For Age Transfers SCALE: Activities may be completed with or without assistive devices. 5-Sfsiszvwdq-lupyumk completes the activity by him/herself with no assistance from a helper. 5-Set-up or Clean-up Assistance-helper sets up or cleans up; patient completes activity. [place] assists only prior to or following the activity. 4-Supervision or Touching Assistance-helper provides verbal cues and/or touching/steadying and/or contact guard assistance as patient completes activity. Assistance may be provided throughout the activity or intermittently. 3-Partial/Moderate Assistance-helper does LESS THAN HALF the effort. [place] lifts, holds or supports trunk or limbs, but provides less than half the effort. 2-Substantial/Maximal Assistance-helper does MORE THAN HALF the effort. [place] lifts or holds trunk or limbs and provides more than half the effort. 5-Bizussygb-ykyqfu does ALL the effort. Patient does none of the effort to complete the activity. Or, the assistance of 2 or more helpers is required for the patient to complete the activity. If activity was not attempted, code reason: 7-Patient Refused. 9-Not Applicable-not attempted and the patient did not perform the activity before the current illness, exacerbation or injury. 10-Not Attempted due to Environmental Limitations-(lack of equipment, weather restraints, etc.). 88-Not Attempted due to Medical Conditions or Safety Concerns. Sit to Stand (QC): 6 Chair/Uxl-oz-Uxowh Xfer(QC): 6 Nurse wanting to know if patient can go to the restroom by himself, apparently he has already been doing this. Patient demonstrated getting up from the chair and ambulating to the restroom and sitting on toilet and getting up and he does so with independence. Nurse notified that he can use the restroom by himself but will call nursing if he has too much pain or is too tired. Patient agrees. Weight Bearing Right Lower Extremity: Right Full Weight Bearing Left Lower Extremity: Left Full Weight Bearing Gait Training Distance: 40'x6 Walk 10 feet (QC): 4 Gait Assistive Device: FWW SBA, very slow and antalgic, small steps, poor clearance. Patient is very tired and has more pain today. He asks if he can not perform therapy today and patient is educated on rehab requirements. He agrees to continue, PT will continue as tolerated. Exercises Seated Therapy Exercises: Ankle pumps, Hip flexion, Hip abd/add (with RTB and ball) Seated Reps: 20 LAQ alternating for 5 min Treatments transfers, toilet transfer, ambulation, LE exercise Assessment Current Status: Poor Progress more pain and fatigue today PT Short Term Goals Short Term Goals Time Frame: Jul 12, 2019 Sit to lyin Lying to sitting on side of be: 4 Sit to stand: 5 Chair/uyy-cm-tdfnn transfer: 5 Walk 150 feet: 4 1 step (curb): 4 PT Insurance Operations Rep Goals Insurance Operations Rep Goals PT Insurance Operations Rep Goals Time Frame: Jul 20, 2019 Roll Left & Right (QC): 6 Sit to Lying (QC): 6 Lying-Sitting on Side/Bed(QC): 6 Sit to Stand (QC): 6 Chair/Xlq-wn-Epkvc Xfer(QC): 6 Toilet Transfer (QC): 6 Car Transfer (QC): 5 Does the Patient Walk: Yes Walk 10 feet (QC): 6 Walk 50ft with 2 Turns (QC): 6 Walk 150 ft (QC): 6 Walking 10ft on Uneven Surface: 6 1 Step (curb) (QC): 6 4 Steps (QC): 6 12 Steps (QC): 9 Picking up an Object (QC): 88 Does the Pt use WC or Scooter?: No PT Plan Problem List Problem List: Activity Tolerance, Functional Strength, Safety, Balance, Gait, Transfer, Bed Mobility, ROM Treatment/Plan Treatment Plan: Continue Plan of Care Treatment Plan: Bed Mobility, Education, Functional Activity Melissa, Functional Strength, Group Therapy, Gait, Safety, Therapeutic Exercise, Transfers Treatment Duration: Jul 20, 2019 Frequency: Modified Program (IRF) (25/12 per physician) Estimated Hrs Per Day: 1.5 hours per day (1 to 1.5) Patient and/or Family Agrees t: Yes Safety Risks/Education Patient Education: Gait Training, Transfer Techniques, Reviewed Precautions, Correct Positioning, Safety Issues Teaching Recipient: Patient Teaching Methods: Demonstration, Discussion Response to Teaching: Reinforcement Needed Time/GCodes Time In: 0930 Time Out: 1045 Total Billed Treatment Time: 75 Total Billed Treatment 1 visit EX 15' GT 60' RHONDA STEPHENS PT Jul 10, 2019 10:40
--- NOTE | 2019-07-10 10:52 | Occupational Ther Daily Note ---
OT Current Status-Daily Note Subjective Pt seen in recliner chair, nursing present. Pt being given pain medications. Pt agreeable to OT tx session, states he had poor night and resulting back pain due to pt crawling over bed rail to get to restroom last night. Pt states he may have or may not have pressed call light but "didn't get any help." Pt expresses desire to utilize bathroom with IND, OT discussed safety issues and desires to ensure safety/ strength prior to pt up ab kinga. ADL-Treatment Therapy Code Descriptions/Definitions Functional [place] Measure: 0=Not Assessed/NA 4=Minimal Assistance 1=Total Assistance 5=Supervision or Setup 2=Maximal Assistance 6=Modified [place] 3=Moderate Assistance 7=Complete IndependenceSCALE: Activities may be completed with or without assistive devices. 7-Wrxnawhmsf-nxkzmnj completes the activity by him/herself with no assistance from a helper. 5-Set-up or Clean-up Assistance-helper sets up or cleans up; patient completes activity. [place] assists only prior to or following the activity. 4-Supervision or Touching Assistance-helper provides verbal cues and/or touching/steadying and/or contact guard assistance as patient completes activity. Assistance may be provided throughout the activity or intermittently. 3-Partial/Moderate Assistance-helper does LESS THAN HALF the effort. [place] lifts, holds or supports trunk or limbs, but provides less than half the effort. 2-Substantial/Maximal Assistance-helper does MORE THAN HALF the effort. [place] lifts or holds trunk or limbs and provides more than half the effort. 6-Xyikqwcnq-jxqexc does ALL the effort. Patient does none of the effort to complete the activity. Or, the assistance of 2 or more helpers is required for the patient to complete the activity. If activity was not attempted, code reason: 7-Patient Refused. 9-Not Applicable-not attempted and the patient did not perform the activity before the current illness, exacerbation or injury. 10-Not Attempted due to Environmental Limitations-(lack of equipment, weather restraints, etc.). 88-Not Attempted due to Medical Conditions or Safety Concerns. Eating (QC): 6 Oral Hygiene (QC): 7 Shower/Bathe Self (QC): 7 Upper Body Dressing (QC): 5 (s/u) Lower Body Dressing (QC): 4 (SBA in stance, cues for sock doffing to ensure easier donning.) On/Off Footwear: 4 (min cues for sock aide use) Toileting Hygiene (QC): 7 (no BM this date.) Toilet Transfer (QC): 4 (SBA, safe use of GBs and use of walker) Other Treatment Pt completes UB/ LB dressing in recliner chair. Pt expresses 8/10 dull ache in back, stating it stemmed from "fighting the blankets" and "rolling over the bed rail last night." Pt educated on use of back brace while up, completes donning/ doffing with max A, completes education of don/ doffing with mod cues for sequencing/ maintaining precautions during activity. Pt completes doffing/ donning back brace with min A 2x while in recliner chair. BLE edematous, education of utilizing SCD's in day/ night. Pt states uncomfortable while sleeping, agrees to day time SCD use. Pt sit to stand and utilizes bathroom with SBA. OT/ PT discuss ab-kinga status and agree pt's safety/ mobility. Pt completes laundry routine on this date, requires [address] to facility with 4-6 minute rest breaks each time. Pt completes laundry with s/u. Pt returns to room with one 5-minute rest break. Pt states he is "out of steam". Pt completes sit to stands from recliner to walker 3x to ensure safety with transfers. Pt left in recliner with call light in reach, all needs met. Pt educated on PT's scheduled time immediately post-OT. Pt acknowledges. Education OT Patient Education: Correct positioning, Exercise program, Home exercise program, Instructions don/doff splint/brace, Modified ADL techniques, Progress toward Goal/Update tx plan, Purpose of tx/functional activities, Safety issues, Use of adapted equipment Teaching Recipient: Patient Teaching Methods: Demonstration, Discussion Response to Teaching: Verbalize Understanding, Return Demonstration OT Short Term Goals Short Term Goals Time Frame: Jul 12, 2019 Eatin (met) Oral hygiene: 6 Toileting hygiene: 3 Shower/bathe self: 3 Upper body dressin (met) Lower body dressin (met) Putting on/taking off footwear: 3 (met) OT Mcfp Goals Mcfp Goals Time Frame: Jul 19, 2019 Eating (QC): 6 (met) Oral Hygiene (QC): 6 Toileting Hygiene (QC): 6 Shower/Bathe Self (QC): 6 Upper Body Dressing (QC): 6 Lower Body Dressing (QC): 6 On/Off Footwear (QC): 6 Additional Goals: 1-Demonstrate ADL Tasks, 2-Verbalize Understanding, 3- ImproveStrength/Melissa 1=Demonstrate adherence to instructed precautions during ADL tasks. 2=Patient will verbalize/demonstrate understanding of assistive devices/modifications for ADL. 3=Patient will improve strength/tolerance for activity to enable patient to perform ADL's. OT Education/Plan Problem List/Assessment Assessment: Decreased Activ Tolerance, Edema, Impaired I ADL's, Impaired Self- Care Skills Discharge Recommendations Plan/Recommendations: Continue POC Therapy Discharge Recommendati: Home & Family Equpiment Recommendations-D/C: Hip Kit Treatment Plan/Plan of Care Treatment,Training & Education: Yes Patient would benefit from OT for education, treatment and training to promote independence in ADL's, mobility, safety and/or upper extremity function for ADL's. Plan of Care: ADL Retraining, Caregiver Training, Concurrent Therapy, Functional Mobility, Group Exercise/Act as Ind, Orthotic Fitting/Training, UE Funct Exercise/Act Treatment Duration: Jul 19, 2019 Frequency: At least 5 of 7 days/Wk (IRF) Estimated Hrs Per Day: 1.5 hours per day Agreement: Yes Rehab Potential: Good Time/GCodes Start Time: 08:00 Stop Time: 09:30 Total Time Billed (hr/min): 90 Billed Treatment Time 1, ADL 4 (60), FA 2(30)= 90 YASIR VALLADARES OTR Jul 10, 2019 10:52
[2019-07-10] MEDS: ADVAIR 250 MCG/50 MCG (NON-FORMULARY) IH SCH ×2 (13:11→18:41)
--- NOTE | 2019-07-10 13:17 | Physical Therapy Daily Note ---
PT Daily Note-Current Subjective Pt. sitting edge of bed and requests to walk and go to bathroom. Pt. states his low back pain is 7-8/10 Pain Numeric Pain Scale: 8 Location: Lower Location Body Site: Back Pain Description: Ache Mental Status Patient Orientation: Normal For Age Transfers SCALE: Activities may be completed with or without assistive devices. 5-Towfqusdsm-lqeqojw completes the activity by him/herself with no assistance from a helper. 5-Set-up or Clean-up Assistance-helper sets up or cleans up; patient completes activity. [place] assists only prior to or following the activity. 4-Supervision or Touching Assistance-helper provides verbal cues and/or touching/steadying and/or contact guard assistance as patient completes activity. Assistance may be provided throughout the activity or intermittently. 3-Partial/Moderate Assistance-helper does LESS THAN HALF the effort. [place] lifts, holds or supports trunk or limbs, but provides less than half the effort. 2-Substantial/Maximal Assistance-helper does MORE THAN HALF the effort. [place] lifts or holds trunk or limbs and provides more than half the effort. 0-Fnjpjoytc-qstwzn does ALL the effort. Patient does none of the effort to complete the activity. Or, the assistance of 2 or more helpers is required for the patient to complete the activity. If activity was not attempted, code reason: 7-Patient Refused. 9-Not Applicable-not attempted and the patient did not perform the activity before the current illness, exacerbation or injury. 10-Not Attempted due to Environmental Limitations-(lack of equipment, weather restraints, etc.). 88-Not Attempted due to Medical Conditions or Safety Concerns. Roll Left & Right (QC): 4 Sit to Lying (QC): 3 Sit to Stand (QC): 4 Toilet Transfer (QC): 5 Weight Bearing Right Lower Extremity: Right Full Weight Bearing Left Lower Extremity: Left Full Weight Bearing Gait Training Does the Patient Walk?: Yes Gait Assistive Device: FWW 25ft x 2 FWW CGA pt. walking very slow, very guarded, decreased step length bilat, several rest breaks while walking secondary to pain Exercises Seated Therapy Exercises: Ankle pumps, Sit to stand, Long arc quads Seated Reps: 10 Treatments assisted in bed to roll to right side , pillows for positioning between knees, [place] at hand Assessment Current Status: Good Progress PT Short Term Goals Short Term Goals Time Frame: Jul 12, 2019 Sit to lyin Lying to sitting on side of be: 4 Sit to stand: 5 Chair/coc-vn-wqnih transfer: 5 Walk 150 feet: 4 1 step (curb): 4 PT Transportation Engineering Technician Goals Custodial Goals PT Transportation Engineering Technician Goals Time Frame: Jul 20, 2019 Roll Left & Right (QC): 6 Sit to Lying (QC): 6 Lying-Sitting on Side/Bed(QC): 6 Sit to Stand (QC): 6 Chair/Fnv-fr-Lqpus Xfer(QC): 6 Toilet Transfer (QC): 6 Car Transfer (QC): 5 Does the Patient Walk: Yes Walk 10 feet (QC): 6 Walk 50ft with 2 Turns (QC): 6 Walk 150 ft (QC): 6 Walking 10ft on Uneven Surface: 6 1 Step (curb) (QC): 6 4 Steps (QC): 6 12 Steps (QC): 9 Picking up an Object (QC): 88 Does the Pt use WC or Scooter?: No PT Plan Treatment/Plan Treatment Plan: Continue Plan of Care Treatment Plan: Bed Mobility, Education, Functional Activity Melissa, Functional Strength, Group Therapy, Gait, Safety, Therapeutic Exercise, Transfers Treatment Duration: Jul 20, 2019 Frequency: Modified Program (IRF) (25/12 per physician) Estimated Hrs Per Day: 1.5 hours per day (1 to 1.5) Patient and/or Family Agrees t: Yes Safety Risks/Education Patient Education: Gait Training, Transfer Techniques, Correct Positioning, Disease Process, Safety Issues Teaching Recipient: Patient Teaching Methods: Demonstration, Discussion Response to Teaching: Verbalize Understanding, Return Demonstration Time/GCodes Time In: 1300 Time Out: 1315 Total Billed Treatment Time: 15 Total Billed Treatment 1,GT15m JAYNE SHEPHERD LAPEL BASTER Jul 10, 2019 13:17
--- NOTE | 2019-07-10 14:19 | NUR ---
UP TO THE BR. PASSED GAS, BUT NO BM NOTED. ADAMANTLY REFUSING ENEMA AT THIS TIME.
--- NOTE | 2019-07-10 14:20 | NUR ---
DRESSING CHANGE TO LOWER BACK AND LEFT FLANK INCISION. INCISIONS ARE WELL APPROXIMATED WITH RANDEE INTACT. NO REDNESS OR DRAINAGE NOTED. CLEANSED WITH ALCOHOL PADS AND COVERED WITH [place] DRESSING.
[2019-07-10 17:05] VITALS: BP 120/75
--- NOTE | 2019-07-10 18:10 | NUR ---
CONTINUES TO REFUSE ENEMA. ALSO REFUSING DULCOLAX SUPPOSITORY. STATES WILL TAKE ENEMA FIRST THING IN THE MORNING AT 0600.
[2019-07-10] MEDS: MONTELUKAST 10 MG (SINGULAIR) TAB PO SCH (20:23)
[2019-07-11] MEDS: HYDROcodone/APAP 5 MG/325 MG (LORTAB) TAB PO PRN ×5 (01:25→20:42)
[2019-07-11] MEDS: NYSTATIN ORAL SUSP 5 ML UDC PO SCH ×4 (01:52→20:23)
[2019-07-11 05:41] VITALS: BP 145/75
[2019-07-11] MEDS: FLEET ENEMA ADULT 1 EA BTL PR PRN (05:46)
[2019-07-11] MEDS: FUROSEMIDE 20 MG (LASIX) TAB PO SCH ×2 (06:33→17:22)
[2019-07-11] MEDS: MULTIVIT W/MINERALS TAB (THERAGRAN M) PO SCH (06:33)
[2019-07-11] MEDS: KCL 10 MEQ TAB (MICRO K) PO SCH ×2 (06:33→17:22)
[2019-07-11] MEDS: CATHETER FLUSH 10 ML SYR IV SCH ×3 (06:33→22:10)
--- NOTE | 2019-07-11 08:31 | Cardiology Progress Note ---
Subjective Date Seen by Provider: Jul 11, 2019 Time Seen by Provider: 08:30 Subjective/Events-last exam Patient up moving around in room, states was able to have BM. Denies any chest pain or dyspnea Review of Systems General: No Chills, No Night Sweats, No Fatigue, No Malaise, No Appetite, No Other HEENT: No Head Aches, No Visual Changes, No Eye Pain, No Ear Pain, No Dysphasia, No Sinus Congestion, No Post Nasal Drip, No Sore Throat, No Other Pulmonary: No Dyspnea, No Cough, No Pleuritic Chest Pain, No Other Cardiovascular: No: Chest Pain, Palpitations, Orthopnea, Paroxysmal Noc. Dyspn ea, Edema, Lt Headedness, Other Objective-Cardiology Exam Last Set of Vital Signs Vital Signs 07/11/19 07/11/19 05:41 09:09 Temp 37.0 Pulse 74 Resp 20 B/P (MAP) 145/75 (98) Pulse Ox 94 O2 Delivery Room Air Capillary Refill : Less Than 3 Seconds I&O Intake and Output 07/11/19 00:00 Intake Total 1494 ml Output Total 200 ml Balance 1294 ml Intake Oral 1494 ml Output Urine Total 200 ml # Voids 7 General: Alert, Oriented X3, Cooperative HEENT: Atraumatic, PERRLA Neck: Supple, No JVD, No Thyromegaly Lungs: Clear to Auscultation, Normal Air Movement Heart: Regular Rate, Normal S1, Normal S2, No Murmurs Abdomen: No Tenderness, No Hepatosplenomegaly Extremities: No Clubbing, Other (+1-2 edema BLE) Skin: No Rashes, No Significant Lesion Neuro: Normal Speech, Cranial Nerves 3-12 NL Psych/Mental Status: Mental Status NL, Mood NL A/P-Cardiology Admission Diagnosis Coronary artery disease Debility COPD Hypertension Assessment/Plan Spinal stenosis, had recent surgery, recovering slowly, generalized weakness and debility, receiving physical therapy. COPD, obstructive sleep apnea, shortness of breath on exertion. Status post pneumonia, recovering slowly and improving Coronary artery disease, history of multiple intervention in the past, had a stress test done in May 2019 showing no ischemia or infarction. Normal EF. Continue to monitor Peripheral edema, started on Lasix, continue to monitor Hypertension, controlled, continue to monitor. Hyperlipidemia. Continue to monitor lipids Morbid obesity, BMI 38, receiving physical therapy. Electrolyte imbalance, managed by primary care physician Constipation, resolved, management by PCP Patient was seen and evaluated with Yoon, examination performed, management plan was discussed, agree with the current scribed note, I made few changes to the note using Italic font Patient is sitting in a chair, feeling better, had a bowel movement Still complaining of generalized weakness and fatigue Continue on current medication monitor blood pressure Clinical Quality Measures DVT/VTE Risk/Contraindication: Risk Factor Score Per Nursin RFS Level Per Nursing on Admit: 4+=Very High YOON CASTRO Jul 11, 2019 08:31 ADRYAN NAVARRO MD Jul 11, 2019 11:17
--- NOTE | 2019-07-11 08:34 | PM&R Progress Note ---
Subjective HPI/CC On Admission Date Seen by Provider: Jul 11, 2019 Time Seen by Provider: 08:45 Subjective/Events-last exam Soap suds enema did produce a large BM this morning. Up AD-MEAGHAN in the room. BiPAP worn sporadically last night. Changed the dressing and I did evaluate that and it looks good. IV antibiotics switched to Omnicef Conferred with RN Reviewed therapy notes Checked meds and labs Review of Systems General: Fatigue Musculoskeletal: back pain Objective Exam Vital Signs Vital Signs Date Time Temp Pulse Resp B/P (MAP) Pulse Ox O2 Delivery O2 Flow Rate FiO2 07/11/19 19:07 92 Room Air 07/11/19 17:18 37.1 78 20 116/63 (80) Capillary Refill : Less Than 3 Seconds General Appearance: No Apparent Distress, WD/WN, Chronically ill, Obese HEENT: PERRL/EOMI, Normal ENT Inspection, Pharynx Normal Neck: Full Range of Motion, Normal Inspection, Non Tender, Supple, Carotid Bruit Respiratory: Chest Non Tender, Lungs Clear, Normal Breath Sounds, No Accessory Muscle Use, No Respiratory Distress Cardiovascular: Regular Rate, Rhythm, No Edema, No Gallop, No JVD, No Murmur, Normal Peripheral Pulses Gastrointestinal: Normal Bowel Sounds, No Organomegaly, No Pulsatile Mass, Non Tender, Soft Back: Decreased Range of Motion, Muscle Spasm, Vertebral Tenderness Extremity: Normal Capillary Refill, Normal Inspection, Normal Range of Motion, Non Tender, No Calf Tenderness, No Pedal Edema Neurologic/Psychiatric: Alert, Oriented x3, No Motor/Sensory Deficits, Normal Mood/Affect, senior accountant cpa II-XII Norm as Tested, Motor Weakness (lower legs) Skin: Normal Color, Warm/Dry Lymphatic: No Adenopathy Results/Procedures Lab Patient resulted labs reviewed. FIM Transfers Therapy Code Descriptions/Definitions Functional [place] Measure: 0=Not Assessed/NA 4=Minimal Assistance 1=Total Assistance 5=Supervision or Setup 2=Maximal Assistance 6=Modified [place] 3=Moderate Assistance 7=Complete IndependenceSCALE: Activities may be completed with or without assistive devices. 2-Neqjcxsqes-xygzjim completes the activity by him/herself with no assistance from a helper. 5-Set-up or Clean-up Assistance-helper sets up or cleans up; patient completes activity. [place] assists only prior to or following the activity. 4-Supervision or Touching Assistance-helper provides verbal cues and/or touching/steadying and/or contact guard assistance as patient completes activity. Assistance may be provided throughout the activity or intermittently. 3-Partial/Moderate Assistance-helper does LESS THAN HALF the effort. [place] lifts, holds or supports trunk or limbs, but provides less than half the effort. 2-Substantial/Maximal Assistance-helper does MORE THAN HALF the effort. [place] lifts or holds trunk or limbs and provides more than half the effort. 6-Rvafvgpbq-gewgjv does ALL the effort. Patient does none of the effort to c omplete the activity. Or, the assistance of 2 or more helpers is required for the patient to complete the activity. If activity was not attempted, code reason: 7-Patient Refused. 9-Not Applicable-not attempted and the patient did not perform the activity before the current illness, exacerbation or injury. 10-Not Attempted due to Environmental Limitations-(lack of equipment, weather restraints, etc.). 88-Not Attempted due to Medical Conditions or Safety Concerns. Roll Left to Right (QC): 4 Sit to Lying (QC): 3 Sit to Stand (QC): 4 Chair/Fia-pr-[place] Xfer(QC): 6 Car Transfer (QC): 88 (pt unsafe to attempt this date. ) Gait Training Does the Patient Walk?: Yes Distance: 40'x6 Walk 10 feet (QC): 4 Walk 50 ft with 2 Turns(QC): 3 Walk 150 ft (QC): 88 Walking 10ft/uneven surface-QC: 88 Gait Persons Needed: 1 Gait Assistive Device: FWW Wheelchair Training Does the Pt Use a Wheelchair?: No Stair Training 1 Step (curb) (QC): 88 4 Steps (QC): 88 12 Steps (QC): 88 Balance Picking up an Object (QC): 88 (contraindicated with recent back surgery.) ADL-Treatment Eating (QC): 6 Oral Hygiene (QC): 7 Shower/Bathe Self (QC): 7 Upper Body Dressing (QC): 5 (s/u) Lower Body Dressing (QC): 4 (SBA in stance, cues for sock doffing to ensure easier donning.) On/Off Footwear (QC): 4 (min cues for sock aide use) Toileting Hygiene (QC): 7 (no BM this date.) Toilet Transfer (QC): 4 (SBA, safe use of GBs and use of walker) Assessment/Plan Assessment and Plan Assess & Plan/Chief Complaint Assessment: Lumbar stenosis with radiculopathy post op with severe debility PNA acute Sepsis DIONNE on biPAP HTN CAD Plan: IRF protocol but slow process 25/12 due to PNA and severe debility BM regimen Patient refuses a lot of meds and interventions Much improved but difficult to ascertain if he can gain more in order to go home (1) Stenosis, spinal, lumbar (2) Coronary artery disease Status: Acute (3) Pneumonia Status: Acute (4) Lumbar radiculopathy (5) Sepsis (6) Leukocytosis (7) Non-compliance (8) Constipation (9) Hypertension (10) DIONNE treated with BiPAP (11) Lactic acid acidosis AYDE FRANCO DO Jul 11, 2019 08:34
[2019-07-11] MEDS: fluCOnazole (DIFLUCAN) 100 MG TAB PO SCH (09:00)
[2019-07-11] MEDS: FAMOTIDINE 20 MG (PEPCID) TABLET PO SCH ×2 (09:00→20:51)
[2019-07-11] MEDS: LORATADINE (CLARITIN) 10 MG TAB PO SCH (09:00)
[2019-07-11] MEDS: CEFDINIR 300 MG (OMNICEF) CAP PO SCH ×2 (09:00→20:41)
[2019-07-11] MEDS: DOCUSATE SODIUM 100 MG (COLACE) CAP PO SCH ×2 (09:00→20:41)
[2019-07-11] MEDS: SENNA W/DOCUSATE (SENOKOT S) TABLET PO SCH ×2 (09:00→20:41)
[2019-07-11] MEDS: CARVEDILOL 3.125 MG (COREG) TABLET PO SCH ×2 (09:00→20:46)
[2019-07-11] MEDS: LOSARTAN 50 MG (COZAAR) TAB PO SCH (09:00)
[2019-07-11] MEDS: polyethylene glycoL POWDER 17 GM (MIRALAX) PACK PO SCH ×2 (09:18→20:51)
[2019-07-11] MEDS: ADVAIR 250 MCG/50 MCG (NON-FORMULARY) IH SCH ×2 (11:26→19:07)
--- NOTE | 2019-07-11 11:43 | Occupational Ther Daily Note ---
OT Current Status-Daily Note Subjective Pt seen in recliner chair, states 8/10 pain this morning with pain meds administered. Pt agreeable to full shower, states slept poorly night before. Pt states he has decreased energy this morning, but did have BM prior to OT entry. Mental Status/Objective Patient Orientation: Normal For Age ADL-Treatment Therapy Code Descriptions/Definitions Functional [place] Measure: 0=Not Assessed/NA 4=Minimal Assistance 1=Total Assistance 5=Supervision or Setup 2=Maximal Assistance 6=Modified [place] 3=Moderate Assistance 7=Complete IndependenceSCALE: Activities may be completed with or without assistive devices. 2-Tbovvzvfpj-cchfthb completes the activity by him/herself with no assistance from a helper. 5-Set-up or Clean-up Assistance-helper sets up or cleans up; patient completes activity. [place] assists only prior to or following the activity. 4-Supervision or Touching Assistance-helper provides verbal cues and/or touching/steadying and/or contact guard assistance as patient completes activity. Assistance may be provided throughout the activity or intermittently. 3-Partial/Moderate Assistance-helper does LESS THAN HALF the effort. [place] lifts, holds or supports trunk or limbs, but provides less than half the effort. 2-Substantial/Maximal Assistance-helper does MORE THAN HALF the effort. [place] lifts or holds trunk or limbs and provides more than half the effort. 7-Jazggyugk-vryyct does ALL the effort. Patient does none of the effort to complete the activity. Or, the assistance of 2 or more helpers is required for the patient to complete the activity. If activity was not attempted, code reason: 7-Patient Refused. 9-Not Applicable-not attempted and the patient did not perform the activity before the current illness, exacerbation or injury. 10-Not Attempted due to Environmental Limitations-(lack of equipment, weather restraints, etc.). 88-Not Attempted due to Medical Conditions or Safety Concerns. Eating (QC): 6 Oral Hygiene (QC): 6 (seated in front of sink. ) Shower/Bathe Self (QC): 5 (s/u shower- pt's nurse notified of showering, states back dressings remain. Pic line covered. Pt completes showering on commode, able to reach all areas with use of LHS) Upper Body Dressing (QC): 6 Lower Body Dressing (QC): 4 (Pt requires SBA during pant/ undergarment donning in stance. Pt able to don/ thread with pattern duplicator. ) On/Off Footwear: 6 (Dons with sock aide) Toileting Hygiene (QC): 4 (Pt has 2nd BM of morning with OT present. Pt able to complete toilet hygiene with SUP atFWW level.) Toilet Transfer (QC): 6 (completes with IND with walker and standard toilet.) Other Treatment Pt expresses he is "emotionally and physically drained" post- BM this morning. pt requires encouragement for participation with shower in mind. Pt agrees to shower/ dressing as he will have to shower self at home. Pt has walk in shower, states will need shower chair. Pt agrees to shower on commode to be able to reach bottom. Pt sit to stand with walker with IND, utilizes toilet for urination (sitting). Pt returns to commode in shower, completes shower with SUP. Pt desires to dress in bathroom on chair, ambulates with good safety awareness/ balance. Pt dresses with proper use of AE in chair. Difficulty with sock aide, able to complete with increased time; pt's BLE edematous, states he did not utilize SCD's yesterday and does not plan to. Pt edcuated on benefits of SCDs and/ or elevation of BLE. Pt acknowledges. Pt demonstrates good safety and sequencing. Pt expresses worn out, utilizes bathroom, sits in front of sink for oral hygiene (increased time needed). Pt returns to recliner chair, completes 10 sets of 5/5 theraband exercises with mod cues for positioning throughout. Pt asked if he completes exercises, states he has a few times. Pt educated to complete at night, pt agrees. Pt maintains proper precautions throughout session. Pt left in recliner chair, call light in reach, all needs met. Education OT Patient Education: Correct positioning, Exercise program, Home exercise prog nina, Modified ADL techniques, Progress toward Goal/Update tx plan, Safety issues Teaching Recipient: Patient Teaching Methods: Demonstration, Discussion Response to Teaching: Verbalize Understanding, Return Demonstration OT Short Term Goals Short Term Goals Time Frame: Jul 12, 2019 Eatin (met) Oral hygiene: 6 (met) Toileting hygiene: 3 (met) Shower/bathe self: 3 (met) Upper body dressin (met) Lower body dressin (met) Putting on/taking off footwear: 3 (met) OT Associate Software Developer Goals Care Home Goals Time Frame: Jul 19, 2019 Eating (QC): 6 (met) Oral Hygiene (QC): 6 (met) Toileting Hygiene (QC): 6 Shower/Bathe Self (QC): 6 Upper Body Dressing (QC): 6 Lower Body Dressing (QC): 6 On/Off Footwear (QC): 6 (met) Additional Goals: 1-Demonstrate ADL Tasks, 2-Verbalize Understanding, 3-Im proveStrength/Melissa 1=Demonstrate adherence to instructed precautions during ADL tasks. 2=Patient will verbalize/demonstrate understanding of assistive devices/modifications for ADL. 3=Patient will improve strength/tolerance for activity to enable patient to perform ADL's. OT Education/Plan Problem List/Assessment Assessment: Decreased Activ Tolerance, Edema, Impaired I ADL's, Impaired Self- Care Skills Discharge Recommendations Plan/Recommendations: Continue POC Equpiment Recommendations-D/C: Bath Chair, Hip Kit Treatment Plan/Plan of Care Treatment,Training & Education: Yes Patient would benefit from OT for education, treatment and training to promote independence in ADL's, mobility, safety and/or upper extremity function for ADL's. Plan of Care: ADL Retraining, Caregiver Training, Concurrent Therapy, Functional Mobility, Group Exercise/Act as Ind, Orthotic Fitting/Training, UE Funct Exercise/Act Treatment Duration: Jul 19, 2019 Frequency: At least 5 of 7 days/Wk (IRF) Estimated Hrs Per Day: 1.5 hours per day Agreement: Yes Rehab Potential: Good Time/GCodes Start Time: 08:00 Stop Time: 09:30 Total Time Billed (hr/min): 90 Billed Treatment Time 1, ADL 5, EX (90) YASIR VALLADARES OTR Jul 11, 2019 11:43
--- NOTE | 2019-07-11 12:01 | Physical Therapy Daily Note ---
PT Daily Note-Current Subjective Pt sitting in recliner upon arrival. Pt reports feeling fatigued from morning Rx as well as had recent pain med. Pt agrees to limited PT. Pain Numeric Pain Scale: 8 Location: Lower Location Body Site: Back Pain Description: Ache, Tightness Comment: Pt reports pain in back as well as R ribs, rating it 3/10. Mental Status Patient Orientation: Person, Place, Situation Attachments: Other-See Comments (Back brace but unable to wear at this time due to uncomfortable fit) Transfers SCALE: Activities may be completed with or without assistive devices. 2-Hkaojwshoc-edblinr completes the activity by him/herself with no assistance from a helper. 5-Set-up or Clean-up Assistance-helper sets up or cleans up; patient completes activity. [place] assists only prior to or following the activity. 4-Supervision or Touching Assistance-helper provides verbal cues and/or touching/steadying and/or contact guard assistance as patient completes activity. Assistance may be provided throughout the activity or intermittently. 3-Partial/Moderate Assistance-helper does LESS THAN HALF the effort. [place] l ifts, holds or supports trunk or limbs, but provides less than half the effort. 2-Substantial/Maximal Assistance-helper does MORE THAN HALF the effort. [place] lifts or holds trunk or limbs and provides more than half the effort. 3-Wxplhucsf-ekohlj does ALL the effort. Patient does none of the effort to complete the activity. Or, the assistance of 2 or more helpers is required for t he patient to complete the activity. If activity was not attempted, code reason: 7-Patient Refused. 9-Not Applicable-not attempted and the patient did not perform the activity before the current illness, exacerbation or injury. 10-Not Attempted due to Environmental Limitations-(lack of equipment, weather restraints, etc.). 88-Not Attempted due to Medical Conditions or Safety Concerns. Weight Bearing Right Lower Extremity: Right Full Weight Bearing Left Lower Extremity: Left Full Weight Bearing Exercises Supine Ex: Ankle pumps, Quad Set, Glut sets, Heel Slides, Straight leg raise, Hip abd/add Supine Reps: 20 Seated Therapy Exercises: Ankle pumps, Long arc quads, Hip flexion, Kicking activity Seated Reps: 20 Treatments Pt completes Seated EX in chair as well as Supine Ex. EVENING SITTER issues written HEP for pt to continue working on when not with PT. EVENING SITTER & pt discuss pain management techniques, need to continue to move/benefit of PT as well as weekly mtg for ARU & AD that might be needed. Assessment Current Status: Poor Progress Pt limited in participation with EVENING SITTER due to fatigue, pain and drowsiness from pain med. PT Short Term Goals Short Term Goals Time Frame: Jul 12, 2019 Sit to lyin Lying to sitting on side of be: 4 Sit to stand: 5 Chair/urp-wp-oltoe transfer: 5 Walk 150 feet: 4 1 step (curb): 4 PT Solar Installation Technician Goals Solar Installation Technician Goals PT [facility] Goals Time Frame: Jul 20, 2019 Roll Left & Right (QC): 6 Sit to Lying (QC): 6 Lying-Sitting on Side/Bed(QC): 6 Sit to Stand (QC): 6 Chair/[place] Xfer(QC): 6 Toilet Transfer (QC): 6 Car Transfer (QC): 5 Does the Patient Walk: Yes Walk 10 feet (QC): 6 Walk 50ft with 2 Turns (QC): 6 Walk 150 ft (QC): 6 Walking 10ft on Uneven Surface: 6 1 Step (curb) (QC): 6 4 Steps (QC): 6 12 Steps (QC): 9 Picking up an Object (QC): 88 Does the Pt use WC or Scooter?: No PT Plan Problem List Problem List: Activity Tolerance, Functional Strength, Safety, Balance, Gait, Transfer Treatment/Plan Treatment Plan: Continue Plan of Care Treatment Plan: Bed Mobility, Education, Functional Activity Melissa, Functional Strength, Group Therapy, Gait, Safety, Therapeutic Exercise, Transfers Treatment Duration: Jul 20, 2019 Frequency: Modified Program (IRF) (/ per physician) Estimated Hrs Per Day: 1.5 hours per day (1 to 1.5) Patient and/or Family Agrees t: Yes Safety Risks/Education Patient Education: Gait Training, Transfer Techniques, Issued Written HEP, Correct Positioning, Safety Issues Teaching Recipient: Patient Teaching Methods: Discussion Response to Teaching: Verbalize Understanding Time/GCodes Time In: 1045 Time Out: 1145 Total Billed Treatment Time: 60 Total Billed Treatment 1, EX x2 (30m) & FA x2 (30m) SARA MASON EVENING SITTER Jul 11, 2019 12:01
--- NOTE | 2019-07-11 14:36 | Physical Therapy Daily Note ---
PT Daily Note-Current Subjective Pt sitting in recliner eating sucker upon arrival. Pt reports, " I was planning to lay down shortly". After BASEBALL COACH advises that pt can be assisted, pt reports wanting to finish sucker first then will put light on when ready. Pt does put call light on when ready for transfer to bed. Mental Status Patient Orientation: Person, Place, Situation Attachments: Other-See Comments (Back brace not worn due to abdominal discomfort) Transfers SCALE: Activities may be completed with or without assistive devices. 7-Ypmapkkxbc-mslvwwc completes the activity by him/herself with no assistance from a helper. 5-Set-up or Clean-up Assistance-helper sets up or cleans up; patient completes activity. [place] assists only prior to or following the activity. 4-Supervision or Touching Assistance-helper provides verbal cues and/or touching/steadying and/or contact guard assistance as patient completes activity. Assistance may be provided throughout the activity or intermittently. 3-Partial/Moderate Assistance-helper does LESS THAN HALF the effort. [place] lifts, holds or supports trunk or limbs, but provides less than half the effort. 2-Substantial/Maximal Assistance-helper does MORE THAN HALF the effort. [place] lifts or holds trunk or limbs and provides more than half the effort. 0-Erxnmpphn-stfthr does ALL the effort. Patient does none of the effort to complete the activity. Or, the assistance of 2 or more helpers is required for the patient to complete the activity. If activity was not attempted, code reason: 7-Patient Refused. 9-Not Applicable-not attempted and the patient did not perform the activity before the current illness, exacerbation or injury. 10-Not Attempted due to Environmental Limitations-(lack of equipment, weather restraints, etc.). 88-Not Attempted due to Medical Conditions or Safety Concerns. Roll Left & Right (QC): 4 Sit to Lying (QC): 3 Lying to Sitting/Side of Bed(Q: 3 Sit to Stand (QC): 5 Weight Bearing Right Lower Extremity: Right Full Weight Bearing Left Lower Extremity: Left Full Weight Bearing Treatments Pt transfers from recliner to standing to transfer to bed. BASEBALL COACH assists with lifting B LE into bed as well as pt rolling to place MHP under back to aid with pain control. BASEBALL COACH positions pillows to lay pt in R side lying position. Pt has all needs met & call light in hand. Assessment Current Status: Fair Progress Pt demonstrates increase in strength with transfers but unable to lift B LE into bed. Pt demonstrates lack of motivation to participate in PT, even after instructed benefits. PT Short Term Goals Short Term Goals Time Frame: Jul 12, 2019 Sit to lyin Lying to sitting on side of be: 4 Sit to stand: 5 Chair/cvz-lm-xsfhr transfer: 5 Walk 150 feet: 4 1 step (curb): 4 PT Charger Goals Assisted Goals PT Assisted Goals Time Frame: Jul 20, 2019 Roll Left & Right (QC): 6 Sit to Lying (QC): 6 Lying-Sitting on Side/Bed(QC): 6 Sit to Stand (QC): 6 Chair/Mzv-mn-Kkuhl Xfer(QC): 6 Toilet Transfer (QC): 6 Car Transfer (QC): 5 Does the Patient Walk: Yes Walk 10 feet (QC): 6 Walk 50ft with 2 Turns (QC): 6 Walk 150 ft (QC): 6 Walking 10ft on Uneven Surface: 6 1 Step (curb) (QC): 6 4 Steps (QC): 6 12 Steps (QC): 9 Picking up an Object (QC): 88 Does the Pt use WC or Scooter?: No PT Plan Problem List Problem List: Activity Tolerance, Gait, Bed Mobility Treatment/Plan Treatment Plan: Continue Plan of Care Treatment Plan: Bed Mobility, Education, Functional Activity Melissa, Functional Strength, Group Therapy, Gait, Safety, Therapeutic Exercise, Transfers Treatment Duration: Jul 20, 2019 Frequency: Modified Program (IRF) (15/ per physician) Estimated Hrs Per Day: 1.5 hours per day (1 to 1.5) Patient and/or Family Agrees t: Yes Safety Risks/Education Patient Education: Transfer Techniques, Correct Positioning, Safety Issues Teaching Recipient: Patient Teaching Methods: Discussion Response to Teaching: Verbalize Understanding Time/GCodes Time In: 1340 Time Out: 1410 Total Billed Treatment Time: 30 Total Billed Treatment 1, FA x2 (30m) SARA MASON BASEBALL COACH Jul 11, 2019 14:36
[2019-07-11 17:18] VITALS: BP 116/63
--- NOTE | 2019-07-11 19:16 | NUR ---
bedside report received from JIM CORTÉS, assume care of pt
--- NOTE | 2019-07-11 20:10 | NUR ---
while changing picc line caps purple port would not flush
[2019-07-11 20:40] VITALS: BP 128/76
--- NOTE | 2019-07-11 20:42 | NUR ---
pt refused miralax but took Senokot & Colace, refused singular & pepcid, c/o back & rt sided pain level 7/10 on numeric scale, Lortab 5 2 tabs given
[2019-07-11] MEDS: MONTELUKAST 10 MG (SINGULAIR) TAB PO SCH (20:51)
--- NOTE | 2019-07-11 21:30 | NUR ---
resting quietly in the chair, pain level 0/10 on flacc scale
--- NOTE | 2019-07-11 22:10 | NUR ---
tried flushing both ports & could not get either one to flush
[2019-07-12] MEDS: HYDROcodone/APAP 5 MG/325 MG (LORTAB) TAB PO PRN ×5 (01:10→21:32)
--- NOTE | 2019-07-12 01:10 | NUR ---
c/o back & rt sided pain level 8/10 on numeric scale, Lortab 5 2 tabs given
--- NOTE | 2019-07-12 01:11 | NUR ---
pt stated not to wake him for 0200 Mycostatin
--- NOTE | 2019-07-12 01:50 | NUR ---
pt resting quietly in bed, pain level 0/10 on flacc scale
[2019-07-12] MEDS: NYSTATIN ORAL SUSP 5 ML UDC PO SCH ×4 (02:00→20:47)
[2019-07-12 05:23] VITALS: BP 139/64
[2019-07-12] MEDS: MULTIVIT W/MINERALS TAB (THERAGRAN M) PO SCH (06:29)
[2019-07-12] MEDS: KCL 10 MEQ TAB (MICRO K) PO SCH ×2 (06:29→17:30)
[2019-07-12] MEDS: FUROSEMIDE 20 MG (LASIX) TAB PO SCH ×2 (06:30→17:30)
[2019-07-12] MEDS: CATHETER FLUSH 10 ML SYR IV SCH ×3 (06:31→22:00)
--- NOTE | 2019-07-12 06:31 | NUR ---
cf/o back & rt sided pain level 6/10 on numeric scale, lortab 5 2 tabs given
[2019-07-12] MEDS: ALBUTEROL IH PRN (06:38)
[2019-07-12] MEDS: ADVAIR 250 MCG/50 MCG (NON-FORMULARY) IH SCH (06:38)
--- NOTE | 2019-07-12 08:10 | Cardiology Progress Note ---
Subjective Date Seen by Provider: Jul 12, 2019 Time Seen by Provider: 08:09 Subjective/Events-last exam Patient sitting up in bed, complaining of some back pain. Denies any chest pain or increased dyspnea. Review of Systems General: No Chills, No Night Sweats, No Fatigue, No Malaise, No Appetite, No Other HEENT: No Head Aches, No Visual Changes, No Eye Pain, No Ear Pain, No Dys phasia, No Sinus Congestion, No Post Nasal Drip, No Sore Throat, No Other Pulmonary: No Dyspnea, No Cough, No Pleuritic Chest Pain, No Other Cardiovascular: No: Chest Pain, Palpitations, Orthopnea, Paroxysmal Noc. Dyspnea, Edema, Lt Headedness, Other Gastrointestinal: Constipation Objective-Cardiology Exam Last Set of Vital Signs Vital Signs 07/12/19 07/12/19 05:23 06:40 Temp 36.4 Pulse 78 Resp 20 B/P (MAP) 139/64 (89) Pulse Ox 94 O2 Delivery Room Air Capillary Refill : Less Than 3 Seconds I&O Intake and Output 07/12/19 00:00 Intake Total 1530 ml Balance 1530 ml Intake Oral 1530 ml # Voids 9 # Bowel Movements 2 General: Alert, Oriented X3, Cooperative HEENT: Atraumatic, PERRLA Neck: Supple, No JVD, No Thyromegaly Lungs: Clear to Auscultation, Normal Air Movement Heart: Regular Rate, Normal S1, Normal S2, No Murmurs Abdomen: No Tenderness, No Hepatosplenomegaly Extremities: No Clubbing, Other (+1-2 edema BLE) Skin: No Rashes, No Significant Lesion Neuro: Normal Speech, Cranial Nerves 3-12 NL Psych/Mental Status: Mental Status NL, Mood NL A/P-Cardiology Admission Diagnosis Coronary artery disease Debility COPD Hypertension Assessment/Plan Spinal stenosis, had recent surgery, recovering slowly, generalized weakness and debility,complaining of some back pain this morning, receiving physical therapy. COPD, obstructive sleep apnea, shortness of breath on exertion. Status post pneumonia, recovering slowly and improving Coronary artery disease, history of multiple intervention in the past, had a stress test done in May 2019 showing no ischemia or infarction. Normal EF. Continue to monitor Peripheral edema, started on Lasix, continue to monitor Hypertension, controlled, continue to monitor. Hyperlipidemia. Continue to monitor lipids Morbid obesity, BMI 38, receiving physical therapy. Electrolyte imbalance, managed by primary care physician Constipation, resolved, management by PCP Patient was seen and evaluated with Yoon, examination performed, management plan was discussed, agree with the current scribed note, I made few changes to the note using Italic font patient was seen while receiving physical therapy, feeling better, still having generalized fatigue continue current medications Clinical Quality Measures DVT/VTE Risk/Contraindication: Risk Factor Score Per Nursin RFS Level Per Nursing on Admit: 4+=Very High YOON CASTRO Jul 12, 2019 08:10 ADRYAN NAVARRO MD Jul 12, 2019 09:05
[2019-07-12] MEDS: LOSARTAN 50 MG (COZAAR) TAB PO SCH (08:22)
[2019-07-12] MEDS: CARVEDILOL 3.125 MG (COREG) TABLET PO SCH ×2 (08:22→20:53)
[2019-07-12] MEDS: DOCUSATE SODIUM 100 MG (COLACE) CAP PO SCH ×2 (08:22→20:53)
[2019-07-12] MEDS: SENNA W/DOCUSATE (SENOKOT S) TABLET PO SCH ×2 (08:22→20:53)
[2019-07-12] MEDS: LORATADINE (CLARITIN) 10 MG TAB PO SCH (08:22)
[2019-07-12] MEDS: FAMOTIDINE 20 MG (PEPCID) TABLET PO SCH ×2 (08:22→21:00)
[2019-07-12] MEDS: polyethylene glycoL POWDER 17 GM (MIRALAX) PACK PO SCH ×2 (08:22→21:00)
--- NOTE | 2019-07-12 08:56 | PM&R Progress Note ---
Subjective HPI/CC On Admission Date Seen by Provider: Jul 12, 2019 Time Seen by Provider: 09:00 Subjective/Events-last exam Pt up ad kinga Recheck Tuesday for disposition Had a BM yesterday but still talks about it a lot Hydrocodone taken for pain Will DC the picc line Conferred with RN Reviewed therapy notes Checked meds and labs Review of Systems Gastrointestinal: Constipation Musculoskeletal: back pain Objective Exam Vital Signs Vital Signs Date Time Temp Pulse Resp B/P (MAP) Pulse Ox O2 Delivery O2 Flow Rate FiO2 07/13/19 05:08 37.0 78 20 155/74 (101) 95 NIV CPAP Capillary Refill : Less Than 3 Seconds General Appearance: No Apparent Distress, WD/WN, Chronically ill, Obese HEENT: PERRL/EOMI, Normal ENT Inspection, Pharynx Normal Neck: Full Range of Motion, Normal Inspection, Non Tender, Supple, Carotid Bruit Respiratory: Chest Non Tender, Lungs Clear, Normal Breath Sounds, No Accessory Muscle Use, No Respiratory Distress Cardiovascular: Regular Rate, Rhythm, No Edema, No Gallop, No JVD, No Murmur, Normal Peripheral Pulses Gastrointestinal: Normal Bowel Sounds, No Organomegaly, No Pulsatile Mass, Non Tender, Soft Back: Decreased Range of Motion, Muscle Spasm, Vertebral Tenderness Extremity: Normal Capillary Refill, Normal Inspection, Normal Range of Motion, Non Tender, No Calf Tenderness, No Pedal Edema Neurologic/Psychiatric: Alert, Oriented x3, No Motor/Sensory Deficits, Normal Mood/Affect, busher helper II-XII Norm as Tested, Motor Weakness (lower legs) Skin: Normal Color, Warm/Dry Lymphatic: No Adenopathy Results/Procedures Lab Patient resulted labs reviewed. FIM Transfers Therapy Code Descriptions/Definitions Functional [place] Measure: 0=Not Assessed/NA 4=Minimal Assistance 1=Total Assistance 5=Supervision or Setup 2=Maximal Assistance 6=Modified [place] 3=Moderate Assistance 7=Complete IndependenceSCALE: Activities may be completed with or without assistive devices. 2-Njnkujolch-gbxtlrc completes the activity by him/herself with no assistance from a helper. 5-Set-up or Clean-up Assistance-helper sets up or cleans up; patient completes activity. [place] assists only prior to or following the activity. 4-Supervision or Touching Assistance-helper provides verbal cues and/or touching/steadying and/or contact guard assistance as patient completes activity. Assistance may be provided throughout the activity or intermittently. 3-Partial/Moderate Assistance-helper does LESS THAN HALF the effort. [place] lifts, holds or supports trunk or limbs, but provides less than half the effort. 2-Substantial/Maximal Assistance-helper does MORE THAN HALF the effort. [place] lifts or holds trunk or limbs and provides more than half the effort. 8-Lgeuvzmtc-uglvcf does ALL the effort. Patient does none of the effort to complete the activity. Or, the assistance of 2 or more helpers is required for the patient to complete the activity. If activity was not attempted, code reason: 7-Patient Refused. 9-Not Applicable-not attempted and the patient did not perform the activity before the current illness, exacerbation or injury. 10-Not Attempted due to Environmental Limitations-(lack of equipment, weather restraints, etc.). 88-Not Attempted due to Medical Conditions or Safety Concerns. Roll Left to Right (QC): 4 Sit to Lying (QC): 3 Sit to Stand (QC): 5 Chair/Sdl-cr-Mrcyj Xfer(QC): 6 Car Transfer (QC): 88 (pt unsafe to attempt this date. ) Gait Training Does the Patient Walk?: Yes Distance: 40'x6 Walk 10 feet (QC): 4 Walk 50 ft with 2 Turns(QC): 3 Walk 150 ft (QC): 88 Walking 10ft/uneven surface-QC: 88 Gait Persons Needed: 1 Gait Assistive Device: FWW Wheelchair Training Does the Pt Use a Wheelchair?: No Stair Training 1 Step (curb) (QC): 88 4 Steps (QC): 88 12 Steps (QC): 88 Balance Picking up an Object (QC): 88 (contraindicated with recent back surgery.) ADL-Treatment Eating (QC): 6 Oral Hygiene (QC): 6 (seated in front of sink. ) Shower/Bathe Self (QC): 5 (s/u shower- pt's nurse notified of showering, states back dressings remain. Pic line covered. Pt completes showering on commode, able to reach all areas with use of LHS) Upper Body Dressing (QC): 6 Lower Body Dressing (QC): 4 (Pt requires SBA during pant/ undergarment donning in stance. Pt able to don/ thread with cable wirer. ) On/Off Footwear (QC): 6 (Dons with sock aide) Toileting Hygiene (QC): 4 (Pt has 2nd BM of morning with OT present. Pt able to complete toilet hygiene with SUP atFWW level.) Toilet Transfer (QC): 6 (completes with IND with walker and standard toilet.) Assessment/Plan Assessment and Plan Assess & Plan/Chief Complaint Assessment: Lumbar stenosis with radiculopathy post op with severe debility PNA acute Sepsis DIONNE on biPAP HTN CAD Plan: IRF protocol but slow process 25/12 due to PNA and severe debility BM regimen Patient refuses a lot of meds and interventions Much improved but difficult to ascertain if he can gain more in order to go home Dispo pending (1) Stenosis, spinal, lumbar (2) Coronary artery disease Status: Acute (3) Pneumonia Status: Acute (4) Lumbar radiculopathy (5) Sepsis (6) Leukocytosis (7) Non-compliance (8) Constipation (9) Hypertension (10) DIONNE treated with BiPAP (11) Lactic acid acidosis AYDE FRANCO DO Jul 12, 2019 08:56
--- NOTE | 2019-07-12 09:37 | Occupational Ther Daily Note ---
OT Current Status-Daily Note Subjective Pt seen in recliner chair, states his pain has been "hanging around 8/10", pain meds administered. Pt agreeable to OT tx session with goals of toileting and UE strengthening. Pt states he slept poorly last night, though had good amount of sleep. Mental Status/Objective Patient Orientation: Normal For Age ADL-Treatment Therapy Code Descriptions/Definitions Functional [place] Measure: 0=Not Assessed/NA 4=Minimal Assistance 1=Total Assistance 5=Supervision or Setup 2=Maximal Assistance 6=Modified [place] 3=Moderate Assistance 7=Complete IndependenceSCALE: Activities may be completed with or without assistive devices. 0-Eejwtmcnjg-cvwqzkh completes the activity by him/herself with no assistance from a helper. 5-Set-up or Clean-up Assistance-helper sets up or cleans up; patient completes a ctivity. [place] assists only prior to or following the activity. 4-Supervision or Touching Assistance-helper provides verbal cues and/or touching/steadying and/or contact guard assistance as patient completes activity. Assistance may be provided throughout the activity or intermittently. 3-Partial/Moderate Assistance-helper does LESS THAN HALF the effort. [place] lifts, holds or supports trunk or limbs, but provides less than half the effort. 2-Substantial/Maximal Assistance-helper does MORE THAN HALF the effort. [place] lifts or holds trunk or limbs and provides more than half the effort. 9-Uyfvdfmxl-cgbdmd does ALL the effort. Patient does none of the effort to complete the activity. Or, the assistance of 2 or more helpers is required for the patient to complete the activity. If activity was not attempted, code reason: 7-Patient Refused. 9-Not Applicable-not attempted and the patient did not perform the activity before the current illness, exacerbation or injury. 10-Not Attempted due to Environmental Limitations-(lack of equipment, weather restraints, etc.). 88-Not Attempted due to Medical Conditions or Safety Concerns. Eating (QC): 6 Oral Hygiene (QC): 7 Shower/Bathe Self (QC): 7 Upper Body Dressing (QC): 3 (IND shirt don/ doffing. min A brace donning. Pt able to place, requires assist with one strap ) Lower Body Dressing (QC): 7 On/Off Footwear: 6 Toileting Hygiene (QC): 6 Toilet Transfer (QC): 6 Other Treatment Pt completes shirt doff/ donning in room. Pt given theraband, completes 10 reps of each (5/5) exercises with encouragement to complete 2x per day. Pt completes with min cues. Pt sit to stand with SUP, completes toileting with IND (use of grab bars and walker to standard toilet). Pt ambulates with walker with cues to maintain upright posture. Pt states "soreness" in Bilateral hips in stance, does not complain of hips in sit. Pt requires one rest break on way to gym, states he has open floor plan at home and is able to spread chairs through rooms for planned rest areas. Pt and OT discuss reading chair options, decreased safety of office chair which pt able to state. In gym, pt does 10 min of mod resistance arm bike with no break, pillow to position in chair. Pt sits EOM, reaches to floor to pick items up with heating operators engineer, transfers to other hand, and places in box. Pt requires cues for maintenance of precautions (no bending/ twisting). Pt then completes same activity in stationary stance (good balance while transitioning h ands), completes while items across room as well- good ability to problem solve positioning with walker, retrieving items, and transitioning item from heating operators engineer to hand with good balance. Pt states he is "worn out", requires rest break on way to room, continues to c/o soreness in hips. Pt returns to room, utilizes restroom with IND, returns to recliner with call light in reach, all needs met, denies use of heating pad. Education OT Patient Education: Correct positioning, Exercise program, Home exercise program, Modified ADL techniques, Transfer techniques, Use of adapted equipment Teaching Recipient: Patient Teaching Methods: Demonstration, Discussion Response to Teaching: Verbalize Understanding, Return Demonstration OT Short Term Goals Short Term Goals Time Frame: Jul 12, 2019 Eatin (met) Oral hygiene: 6 (met) Toileting hygiene: 3 (met) Shower/bathe self: 3 (met) Upper body dressin (met) Lower body dressin (met) Putting on/taking off footwear: 3 (met) OT Load Out Person Goals Load Out Person Goals Time Frame: Jul 19, 2019 Eating (QC): 6 (met) Oral Hygiene (QC): 6 (met) Toileting Hygiene (QC): 6 Shower/Bathe Self (QC): 6 Upper Body Dressing (QC): 6 Lower Body Dressing (QC): 6 On/Off Footwear (QC): 6 (met) Additional Goals: 1-Demonstrate ADL Tasks, 2-Verbalize Understanding, 3- ImproveStrength/Melissa 1=Demonstrate adherence to instructed precautions during ADL tasks. 2=Patient will verbalize/demonstrate understanding of assistive devices/modifications for ADL. 3=Patient will improve strength/tolerance for activity to enable patient to perform ADL's. OT Education/Plan Problem List/Assessment Assessment: Decreased Activ Tolerance, Decreased UE Strength, Impaired I ADL's, Impaired Self-Care Skills Discharge Recommendations Plan/Recommendations: Continue POC Therapy Discharge Recommendati: Home & Family Equpiment Recommendations-D/C: Bath Chair, Hip Kit Treatment Plan/Plan of Care Treatment,Training & Education: Yes Patient would benefit from OT for education, treatment and training to promote independence in ADL's, mobility, safety and/or upper extremity function for ADL's. Plan of Care: ADL Retraining, Caregiver Training, Concurrent Therapy, Functional Mobility, Group Exercise/Act as Ind, Orthotic Fitting/Training, UE Funct Exercise/Act Treatment Duration: Jul 19, 2019 Frequency: At least 5 of 7 days/Wk (IRF) Estimated Hrs Per Day: 1.5 hours per day Agreement: Yes Rehab Potential: Good Time/GCodes Start Time: 08:00 Stop Time: 09:30 Total Time Billed (hr/min): 90 Billed Treatment Time 1, ADL (15), EX 3 (50), FA 2 (25) YASIR VALLADARES OTR Jul 12, 2019 09:37
[2019-07-12] MEDS ORDERED: SALIVA STIMULANT MOUTH SPRAY (BIOTENE) 1.5 OZ MM PRN (10:45)
--- NOTE | 2019-07-12 12:08 | Physical Therapy Daily Note ---
PT Daily Note-Current Subjective Pt R sideluying in bed upon arrival. Pt reluctantly agrees to PT, stating "I was just starting to get to sleep before you came in". Pain Numeric Pain Scale: 7 Location: Medial Location Body Site: Back Pain Description: Ache, Tightness Mental Status Patient Orientation: Person, Place, Situation Attachments: Other-See Comments (Back Brace that is not worn due to not fitting and uncomfortable) Transfers SCALE: Activities may be completed with or without assistive devices. 6-Iqmlzdmngv-dakfkiq completes the activity by him/herself with no assistance from a helper. 5-Set-up or Clean-up Assistance-helper sets up or cleans up; patient completes activity. [place] assists only prior to or following the activity. 4-Supervision or Touching Assistance-helper provides verbal cues and/or touching/steadying and/or contact guard assistance as patient completes activity. Assistance may be provided throughout the activity or intermittently. 3-Partial/Moderate Assistance-helper does LESS THAN HALF the effort. [place] lifts, holds or supports trunk or limbs, but provides less than half the effort. 2-Substantial/Maximal Assistance-helper does MORE THAN HALF the effort. [place] lifts or holds trunk or limbs and provides more than half the effort. 2-Hcrzjhdkr-jvqluv does ALL the effort. Patient does none of the effort to complete the activity. Or, the assistance of 2 or more helpers is required for the patient to complete the activity. If activity was not attempted, code reason: 7-Patient Refused. 9-Not Applicable-not attempted and the patient did not perform the activity before the current illness, exacerbation or injury. 10-Not Attempted due to Environmental Limitations-(lack of equipment, weather restraints, etc.). 88-Not Attempted due to Medical Conditions or Safety Concerns. Sit to Lying (QC): 4 Lying to Sitting/Side of Bed(Q: 4 Sit to Stand (QC): 5 Toilet Transfer (QC): 4 Weight Bearing Right Lower Extremity: Right Full Weight Bearing Left Lower Extremity: Left Full Weight Bearing Gait Training Does the Patient Walk?: Yes Distance: 15', 30', 20', 65' Walk 10 feet (QC): 4 Walk 50 ft with 2 Turns(QC): 4 Gait Persons Needed: 1 Gait Assistive Device: FWW Pt fatigues very quickly, needing several RB. Pt demonstrates SOA but when Pulse Ox used O2 at 98% and HR is 87. Exercises Seated Therapy Exercises: Ankle pumps, Long arc quads, Hip flexion, Kicking activity Seated Reps: 20 Treatments Pt transfers from bed to standing, MORTISING MACHINE OPERATOR to sit up. Pt ambulates to restroom then ambulates in Therapy Commons (see above). Pt takes extended RB to recover. Pt completes Seated Ex in chair. Pt returns to room to rest in recliner at end of Rx with all needs met, call light in hand. Assessment Current Status: Fair Progress Pt fatigues quickly and needs frequent and extended RB to recover. Pt demonstrates continued low activity tolerance and swelling in B LE. Pt also self limits participation in Rx. PT Short Term Goals Short Term Goals Time Frame: Jul 12, 2019 Sit to lyin Lying to sitting on side of be: 4 Sit to stand: 5 Chair/yaw-qs-jorla transfer: 5 Walk 150 feet: 4 1 step (curb): 4 PT Mailing Machine Assistant Goals Mailing Machine Assistant Goals PT Skilled Nursing Goals Time Frame: Jul 20, 2019 Roll Left & Right (QC): 6 Sit to Lying (QC): 6 Lying-Sitting on Side/Bed(QC): 6 Sit to Stand (QC): 6 Chair/Fmg-ui-Zypps Xfer(QC): 6 Toilet Transfer (QC): 6 Car Transfer (QC): 5 Does the Patient Walk: Yes Walk 10 feet (QC): 6 Walk 50ft with 2 Turns (QC): 6 Walk 150 ft (QC): 6 Walking 10ft on Uneven Surface: 6 1 Step (curb) (QC): 6 4 Steps (QC): 6 12 Steps (QC): 9 Picking up an Object (QC): 88 Does the Pt use WC or Scooter?: No PT Plan Problem List Problem List: Activity Tolerance, Functional Strength, Safety, Balance, Gait, Transfer, Bed Mobility Treatment/Plan Treatment Plan: Continue Plan of Care Treatment Plan: Bed Mobility, Education, Functional Activity Melissa, Functional Strength, Group Therapy, Gait, Safety, Therapeutic Exercise, Transfers Treatment Duration: Jul 20, 2019 Frequency: Modified Program (IRF) (/ per physician) Estimated Hrs Per Day: 1.5 hours per day (1 to 1.5) Patient and/or Family Agrees t: Yes Safety Risks/Education Patient Education: Gait Training, Transfer Techniques, Correct Positioning, Safety Issues Teaching Recipient: Patient Teaching Methods: Discussion Response to Teaching: Reinforcement Needed Time/GCodes Time In: 1000 Time Out: 1100 Total Billed Treatment Time: 60 Total Billed Treatment 1, GT x2 (30m), FA (10m) & EX (20m) SARA MASON COMBINING MACHINE OPERATOR Jul 12, 2019 12:08
--- NOTE | 2019-07-12 13:57 | Physical Therapy Daily Note ---
PT Daily Note-Current Subjective Pt reports he just returned to bed. Agrees to bed exercises. Transfers SCALE: Activities may be completed with or without assistive devices. 9-Kpukyidiqg-kbyyetj completes the activity by him/herself with no assistance from a helper. 5-Set-up or Clean-up Assistance-helper sets up or cleans up; patient completes activity. [place] assists only prior to or following the activity. 4-Supervision or Touching Assistance-helper provides verbal cues and/or touching/steadying and/or contact guard assistance as patient completes activity. Assistance may be provided throughout the activity or intermittently. 3-Partial/Moderate Assistance-helper does LESS THAN HALF the effort. [place] lifts, holds or supports trunk or limbs, but provides less than half the effort. 2-Substantial/Maximal Assistance-helper does MORE THAN HALF the effort. [place] lifts or holds trunk or limbs and provides more than half the effort. 9-Wzengrnek-nuvhvm does ALL the effort. Patient does none of the effort to complete the activity. Or, the assistance of 2 or more helpers is required for the patient to complete the activity. If activity was not attempted, code reason: 7-Patient Refused. 9-Not Applicable-not attempted and the patient did not perform the activity before the current illness, exacerbation or injury. 10-Not Attempted due to Environmental Limitations-(lack of equipment, weather restraints, etc.). 88-Not Attempted due to Medical Conditions or Safety Concerns. Weight Bearing Right Lower Extremity: Right Full Weight Bearing Left Lower Extremity: Left Full Weight Bearing Exercises Supine Ex: Ankle pumps, Quad Set, Glut sets, Heel Slides, Short Arc Quads, Hip abd/add Supine Reps: 15 (with rest breaks as needed. ) LE ther ex performed to increase functional strength for transfer and gait progression. Assessment Pt is making slow progress. Takes extra time to complete tasks and requires rest breaks with exercise. PT Short Term Goals Short Term Goals Time Frame: Jul 12, 2019 Sit to lyin Lying to sitting on side of be: 4 Sit to stand: 5 Chair/mxy-ko-hkqln transfer: 5 Walk 150 feet: 4 1 step (curb): 4 PT Licensed Aircraft Maintenance Engineer Goals Licensed Aircraft Maintenance Engineer Goals PT Jail Goals Time Frame: Jul 20, 2019 Roll Left & Right (QC): 6 Sit to Lying (QC): 6 Lying-Sitting on Side/Bed(QC): 6 Sit to Stand (QC): 6 Chair/Ctv-mi-Htyvn Xfer(QC): 6 Toilet Transfer (QC): 6 Car Transfer (QC): 5 Does the Patient Walk: Yes Walk 10 feet (QC): 6 Walk 50ft with 2 Turns (QC): 6 Walk 150 ft (QC): 6 Walking 10ft on Uneven Surface: 6 1 Step (curb) (QC): 6 4 Steps (QC): 6 12 Steps (QC): 9 Picking up an Object (QC): 88 Does the Pt use WC or Scooter?: No PT Plan Problem List Problem List: Activity Tolerance, Functional Strength, Safety, Balance, Gait, Transfer, Bed Mobility Treatment/Plan Treatment Plan: Continue Plan of Care Treatment Plan: Bed Mobility, Education, Functional Activity Melissa, Functional Strength, Group Therapy, Gait, Safety, Therapeutic Exercise, Transfers Treatment Duration: Jul 20, 2019 Frequency: Modified Program (IRF) (15/7 per physician) Estimated Hrs Per Day: 1.5 hours per day (1 to 1.5) Patient and/or Family Agrees t: Yes Safety Risks/Education Patient Education: Safety Issues Teaching Recipient: Patient Teaching Methods: Discussion Response to Teaching: Reinforcement Needed Time/GCodes Time In: 1325 Time Out: 1355 Total Billed Treatment Time: 30 Total Billed Treatment visit EX 30 BRANDEE VELAZQUEZ PT Jul 12, 2019 13:57
--- NOTE | 2019-07-12 14:37 | Pulmonary Progress Note ---
Subjective Time Seen by a Provider: 14:36 Sepsis Event Evaluation Height, Weight, BMI Height: 5'10.00" Weight: 237lbs. 0.0oz. 107.774150ch; 37.98 BMI Method:Stated Exam Exam Vital Signs Date Time Temp Pulse Resp B/P (MAP) Pulse Ox O2 Delivery O2 Flow Rate FiO2 07/12/19 08:15 Room Air 07/12/19 06:40 94 Room Air 07/12/19 06:38 94 Room Air 07/12/19 05:23 36.4 78 20 139/64 (89) 93 Room Air 07/11/19 20:45 Room Air 07/11/19 19:07 92 Room Air 07/11/19 17:18 37.1 78 20 116/63 (80) 95 Room Air I & O 07/12/19 07:00 Intake Total 1380 ml Balance 1380 ml Height & Weight Height: 5'10.00" Weight: 237lbs. 0.0oz. 107.627623fn; 37.98 BMI Method:Stated General Appearance: No Apparent Distress, WD/WN, Chronically ill, Obese HEENT: PERRL/EOMI, Normal ENT Inspection, Pharynx Normal Neck: Full Range of Motion, Normal Inspection, Non Tender, Supple, Carotid Bruit Respiratory: Chest Non Tender, Lungs Clear, Normal Breath Sounds, No Accessory Muscle Use, No Respiratory Distress Cardiovascular: Regular Rate, Rhythm, No Edema, No Gallop, No JVD, No Murmur, Normal Peripheral Pulses Capillary Refill: Less Than 3 Seconds Extremity: Normal Capillary Refill, Normal Inspection, Normal Range of Motion, Non Tender, No Calf Tenderness, No Pedal Edema Neurologic/Psychiatric: Alert, Oriented x3, No Motor/Sensory Deficits, Normal Mood/Affect, evp [place] II-XII Norm as Tested, Motor Weakness (lower legs) Skin: Normal Color, Warm/Dry Lymphatic: No Adenopathy Assessment/Plan Assessment/Plan Severe COPD -Duoneb -Oxygen -Monitor Morbid obesity CAD Debility History of LBP with resultant need for surgery. s/p Fusion L2-5 with laminectomy VENKAT APARICIO DO Jul 12, 2019 14:37
--- NOTE | 2019-07-12 15:29 | NUR ---
CM/SS WEEKLY TEAM CONFERENCE SUMMARY Reviewed Summary with patient, he is in agreement to a continued stay with reevaluation next Tuesday. Still experiencing intermittent sharp pain. HHC: Anticipate recommendation for continued therapy and monitor at home. DME: Per therapy recommendations.
[2019-07-12 18:00] VITALS: BP 124/76
--- NOTE | 2019-07-12 19:17 | NUR ---
bedside report received from AFSANEH CORTÉS, assume care of pt
--- NOTE | 2019-07-12 20:47 | NUR ---
pt took Colace & Senokot but refused miralax & Pepcid.
[2019-07-12 20:50] VITALS: BP 137/80
[2019-07-12] MEDS: MONTELUKAST 10 MG (SINGULAIR) TAB PO SCH (20:56)
--- NOTE | 2019-07-12 21:31 | NUR ---
c/o back & rt sided pain level 7/10 on numeric scale, Lortab 5 2 tabs given
--- NOTE | 2019-07-12 22:20 | NUR ---
resting quietly in bed, pain level 0/10 on flacc scale
[2019-07-13] MEDS: NYSTATIN ORAL SUSP 5 ML UDC PO SCH ×4 (02:00→20:41)
[2019-07-13] MEDS: HYDROcodone/APAP 5 MG/325 MG (LORTAB) TAB PO PRN ×5 (02:36→20:30)
--- NOTE | 2019-07-13 02:36 | NUR ---
c/o back & rt sided pain level 7/10 on numeric scale, Lortab 5 2 tabs given
--- NOTE | 2019-07-13 03:20 | NUR ---
resting quietly in bed, pain level 0/10 on flacc scale
[2019-07-13 05:08] VITALS: BP 155/74
[2019-07-13] MEDS: CATHETER FLUSH 10 ML SYR IV SCH ×3 (06:00→22:00)
[2019-07-13] MEDS: KCL 10 MEQ TAB (MICRO K) PO SCH ×2 (06:35→18:23)
[2019-07-13] MEDS: FUROSEMIDE 20 MG (LASIX) TAB PO SCH ×2 (06:35→18:24)
[2019-07-13] MEDS: MULTIVIT W/MINERALS TAB (THERAGRAN M) PO SCH (06:35)
--- NOTE | 2019-07-13 06:36 | NUR ---
C/O BACK PAIN & RT SIDED PAIN LEVEL 6/10 ON NUMERIC SCALE, LORTAB 5 2 TABS GIVEN
--- NOTE | 2019-07-13 07:24 | Pulmonary Progress Note ---
Subjective Time Seen by a Provider: 07:24 Subjective/Events-last exam No complications noted. Sepsis Event Evaluation Height, Weight, BMI Height: 5'10.00" Weight: 237lbs. 0.0oz. 107.510881fv; 37.98 BMI Method:Stated Exam Exam Vital Signs Date Time Temp Pulse Resp B/P (MAP) Pulse Ox O2 Delivery O2 Flow Rate FiO2 07/13/19 05:08 37.0 78 20 155/74 (101) 95 NIV CPAP 07/12/19 21:00 Room Air 07/12/19 20:50 83 18 137/80 (99) 94 Room Air 07/12/19 18:00 36.9 91 18 124/76 (92) 92 Room Air 07/12/19 08:15 Room Air I & O 07/13/19 07:00 Intake Total 830 ml Output Total 500 ml Balance 330 ml Height & Weight Height: 5'10.00" Weight: 237lbs. 0.0oz. 107.450497qt; 37.98 BMI Method:Stated General Appearance: No Apparent Distress, WD/WN, Chronically ill, Obese HEENT: PERRL/EOMI, Normal ENT Inspection, Pharynx Normal Neck: Full Range of Motion, Normal Inspection, Non Tender, Supple, Carotid Bruit Respiratory: Chest Non Tender, Lungs Clear, Normal Breath Sounds, No Accessory Muscle Use, No Respiratory Distress Cardiovascular: Regular Rate, Rhythm, No Edema, No Gallop, No JVD, No Murmur, Normal Peripheral Pulses Capillary Refill: Less Than 3 Seconds Extremity: Normal Capillary Refill, Normal Inspection, Normal Range of Motion, Non Tender, No Calf Tenderness, No Pedal Edema Neurologic/Psychiatric: Alert, Oriented x3, No Motor/Sensory Deficits, Normal 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 s/p Fusion L2-5 with laminectomy VENKAT APARICIO DO Jul 13, 2019 07:24
[2019-07-13] MEDS: SENNA W/DOCUSATE (SENOKOT S) TABLET PO SCH (08:57)
[2019-07-13] MEDS: LOSARTAN 50 MG (COZAAR) TAB PO SCH (08:57)
[2019-07-13] MEDS: DOCUSATE SODIUM 100 MG (COLACE) CAP PO SCH ×2 (08:57→20:43)
[2019-07-13] MEDS: CARVEDILOL 3.125 MG (COREG) TABLET PO SCH ×2 (08:57→20:43)
[2019-07-13] MEDS: polyethylene glycoL POWDER 17 GM (MIRALAX) PACK PO SCH (08:57)
[2019-07-13] MEDS: FAMOTIDINE 20 MG (PEPCID) TABLET PO SCH ×2 (08:57→20:42)
[2019-07-13] MEDS: LORATADINE (CLARITIN) 10 MG TAB PO SCH (08:57)
--- NOTE | 2019-07-13 09:47 | PM&R Progress Note ---
Subjective HPI/CC On Admission Date Seen by Provider: Jul 13, 2019 Time Seen by Provider: 12:00 Subjective/Events-last exam Had a BM two days ago, and does well with fleets enema so we will do one a day and I talked to him in depth about that. No pain is reported other than the back. Otherwise slow progress. Conferred with RN Reviewed therapy notes Checked meds and labs Review of Systems Gastrointestinal: Constipation Musculoskeletal: back pain Objective Exam Vital Signs Vital Signs Date Time Temp Pulse Resp B/P (MAP) Pulse Ox O2 Delivery O2 Flow Rate FiO2 07/13/19 10:05 93 Room Air 07/13/19 05:08 37.0 78 20 155/74 (101) Capillary Refill : Less Than 3 Seconds General Appearance: No Apparent Distress, WD/WN, Chronically ill, Obese HEENT: PERRL/EOMI, Normal ENT Inspection, Pharynx Normal Neck: Full Range of Motion, Normal Inspection, Non Tender, Supple, Carotid Bruit Respiratory: Chest Non Tender, Lungs Clear, Normal Breath Sounds, No Accessory Muscle Use, No Respiratory Distress Cardiovascular: Regular Rate, Rhythm, No Edema, No Gallop, No JVD, No Murmur, Normal Peripheral Pulses Gastrointestinal: Normal Bowel Sounds, No Organomegaly, No Pulsatile Mass, Non Tender, Soft Back: Decreased Range of Motion, Muscle Spasm, Vertebral Tenderness Extremity: Normal Capillary Refill, Normal Inspection, Normal Range of Motion, Non Tender, No Calf Tenderness, No Pedal Edema Neurologic/Psychiatric: Alert, Oriented x3, No Motor/Sensory Deficits, Normal 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 FIM Transfers Therapy Code Descriptions/Definitions Functional [place] Measure: 0=Not Assessed/NA 4=Minimal Assistance 1=Total Assistance 5=Supervision or Setup 2=Maximal Assistance 6=Modified [place] 3=Moderate Assistance 7=Complete IndependenceSCALE: Activities may be completed with or without assistive devices. 1-Oehnmlzqou-xyvpqfb completes the activity by him/herself with no assistance from a helper. 5-Set-up or Clean-up Assistance-helper sets up or cleans up; patient completes activity. [place] assists only prior to or following the activity. 4-Supervision or Touching Assistance-helper provides verbal cues and/or touching/steadying and/or contact guard assistance as patient completes activity. Assistance may be provided throughout the activity or intermittently. 3-Partial/Moderate Assistance-helper does LESS THAN HALF the effort. [place] lifts, holds or supports trunk or limbs, but provides less than half the effort. 2-Substantial/Maximal Assistance-helper does MORE THAN HALF the effort. [place] lifts or holds trunk or limbs and provides more than half the effort. 7-Fspexmrci-buyuyf does ALL the effort. Patient does none of the effort to complete the activity. Or, the assistance of 2 or more helpers is required for the patient to complete the activity. If activity was not attempted, code reason: 7-Patient Refused. 9-Not Applicable-not attempted and the patient did not perform the activity before the current illness, exacerbation or injury. 10-Not Attempted due to Environmental Limitations-(lack of equipment, weather restraints, etc.). 88-Not Attempted due to Medical Conditions or Safety Concerns. Roll Left to Right (QC): 4 Sit to Lying (QC): 4 Sit to Stand (QC): 5 Chair/Uig-zt-Tnktk Xfer(QC): 6 Car Transfer (QC): 88 (pt unsafe to attempt this date. ) Gait Training Does the Patient Walk?: Yes Distance: 15', 30', 20', 65' Walk 10 feet (QC): 4 Walk 50 ft with 2 Turns(QC): 4 Walk 150 ft (QC): 88 Walking 10ft/uneven surface-QC: 88 Gait Persons Needed: 1 Gait Assistive Device: FWW Wheelchair Training Does the Pt Use a Wheelchair?: No Stair Training 1 Step (curb) (QC): 88 4 Steps (QC): 88 12 Steps (QC): 88 Balance Picking up an Object (QC): 88 (contraindicated with recent back surgery.) ADL-Treatment Eating (QC): 6 Oral Hygiene (QC): 7 Shower/Bathe Self (QC): 7 Upper Body Dressing (QC): 3 (IND shirt don/ doffing. min A brace donning. Pt able to place, requires assist with one strap ) Lower Body Dressing (QC): 7 On/Off Footwear (QC): 6 Toileting Hygiene (QC): 6 Toilet Transfer (QC): 6 Assessment/Plan Assessment and Plan Assess & Plan/Chief Complaint Assessment: Lumbar stenosis with radiculopathy post op with severe debility PNA acute Sepsis DIONNE on biPAP HTN CAD Plan: IRF protocol but slow process 25/12 due to PNA and severe debility BM regimen to maintain Patient refuses a lot of meds and interventions Much improved but difficult to ascertain if he can gain more in order to go home Dispo pending Fleets prn daily (1) Stenosis, spinal, lumbar (2) Coronary artery disease Status: Acute (3) Pneumonia Status: Acute (4) Lumbar radiculopathy (5) Sepsis (6) Leukocytosis (7) Non-compliance (8) Constipation (9) Hypertension (10) DIONNE treated with BiPAP (11) Lactic acid acidosis AYDE FRANCO DO Jul 13, 2019 09:47
--- NOTE | 2019-07-13 09:55 | Physical Therapy Daily Note ---
PT Daily Note-Current Subjective Patient in chair in hallway, just got done with OT, PT will be taking over. Patient has 7/10 pain in back, states nurse is aware of his pain. Patient has to use the restroom during therapy and does so without assist. Appearance Patient in recliner post tx with nurse call, phone, tray, all needs met. Mental Status Patient Orientation: Normal For Age back brace Transfers SCALE: Activities may be completed with or without assistive devices. 5-Akibpwoudb-wzgzzoj completes the activity by him/herself with no assistance from a helper. 5-Set-up or Clean-up Assistance-helper sets up or cleans up; patient completes activity. [place] assists only prior to or following the activity. 4-Supervision or Touching Assistance-helper provides verbal cues and/or touching/steadying and/or contact guard assistance as patient completes activity. Assistance may be provided throughout the activity or intermittently. 3-Partial/Moderate Assistance-helper does LESS THAN HALF the effort. [place] l ifts, holds or supports trunk or limbs, but provides less than half the effort. 2-Substantial/Maximal Assistance-helper does MORE THAN HALF the effort. [place] lifts or holds trunk or limbs and provides more than half the effort. 0-Cgeuprxih-fybkxx does ALL the effort. Patient does none of the effort to complete the activity. Or, the assistance of 2 or more helpers is required for t he patient to complete the activity. If activity was not attempted, code reason: 7-Patient Refused. 9-Not Applicable-not attempted and the patient did not perform the activity before the current illness, exacerbation or injury. 10-Not Attempted due to Environmental Limitations-(lack of equipment, weather restraints, etc.). 88-Not Attempted due to Medical Conditions or Safety Concerns. Sit to Stand (QC): 6 Chair/Ipx-fw-Zpfyc Xfer(QC): 6 Weight Bearing Right Lower Extremity: Right Full Weight Bearing Left Lower Extremity: Left Full Weight Bearing Gait Training Distance: 100', 60'x2 Walk 10 feet (QC): 4 Walk 50 ft with 2 Turns(QC): 4 Gait Assistive Device: FWW Antalgic ambulation, short shuffling steps that get worse with fatigue, tends to keep walker too far in front, cues to step closer to it. Exercises Seated Therapy Exercises: Ankle pumps, Long arc quads, Hip flexion, Hip abd/add Seated Reps: 20 (2 sets) Standing: Hamstring curls, Heel/toe raises, Marching, Mini squats Standing Reps: 15 Treatments transfers, ambulation, LE exercise, toileting Assessment Current Status: Fair Progress very slow progress but improving general mobility PT Short Term Goals Short Term Goals Time Frame: Jul 12, 2019 Sit to lyin Lying to sitting on side of be: 4 Sit to stand: 5 Chair/bsl-mm-gnkkf transfer: 5 Walk 150 feet: 4 1 step (curb): 4 PT Penitentiary Goals Penitentiary Goals PT Penitentiary Goals Time Frame: Jul 20, 2019 Roll Left & Right (QC): 6 Sit to Lying (QC): 6 Lying-Sitting on Side/Bed(QC): 6 Sit to Stand (QC): 6 Chair/Kjz-st-Vrzez Xfer(QC): 6 Toilet Transfer (QC): 6 Car Transfer (QC): 5 Does the Patient Walk: Yes Walk 10 feet (QC): 6 Walk 50ft with 2 Turns (QC): 6 Walk 150 ft (QC): 6 Walking 10ft on Uneven Surface: 6 1 Step (curb) (QC): 6 4 Steps (QC): 6 12 Steps (QC): 9 Picking up an Object (QC): 88 Does the Pt use WC or Scooter?: No PT Plan Problem List Problem List: Activity Tolerance, Functional Strength, Safety, Balance, Gait, Transfer, Bed Mobility, ROM Treatment/Plan Treatment Plan: Continue Plan of Care Treatment Plan: Bed Mobility, Education, Functional Activity Melissa, Functional Strength, Group Therapy, Gait, Safety, Therapeutic Exercise, Transfers Treatment Duration: Jul 20, 2019 Frequency: Modified Program (IRF) (25/12 per physician) Estimated Hrs Per Day: 1.5 hours per day (1 to 1.5) Patient and/or Family Agrees t: Yes Safety Risks/Education Patient Education: Gait Training, Transfer Techniques, Correct Positioning, Reviewed Don/Doff Brace, Safety Issues Teaching Recipient: Patient Teaching Methods: Demonstration, Discussion Response to Teaching: Reinforcement Needed Time/GCodes Time In: 0900 Time Out: 1000 Total Billed Treatment Time: 60 Total Billed Treatment 1 visit GT 30' EX 30' RHONDA STEPHENS PT Jul 13, 2019 09:55
[2019-07-13] MEDS: ADVAIR 250 MCG/50 MCG (NON-FORMULARY) IH SCH ×2 (10:05→20:42)
--- NOTE | 2019-07-13 11:42 | Occupational Ther Daily Note ---
OT Current Status-Daily Note Subjective Pt seen in bed, states 8/10 pain, agreeable to OT tx session. Mental Status/Objective Patient Orientation: Person, Place, Situation, Normal For Age ADL-Treatment Therapy Code Descriptions/Definitions Functional [place] Measure: 0=Not Assessed/NA 4=Minimal Assistance 1=Total Assistance 5=Supervision or Setup 2=Maximal Assistance 6=Modified [place] 3=Moderate Assistance 7=Complete IndependenceSCALE: Activities may be completed with or without assistive devices. 8-Kphcmjwfsl-vphaesh completes the activity by him/herself with no assistance from a helper. 5-Set-up or Clean-up Assistance-helper sets up or cleans up; patient completes activity. [place] assists only prior to or following the activity. 4-Supervision or Touching Assistance-helper provides verbal cues and/or touching/steadying and/or contact guard assistance as patient completes activity. Assistance may be provided throughout the activity or intermittently. 3-Partial/Moderate Assistance-helper does LESS THAN HALF the effort. [place] lifts, holds or supports trunk or limbs, but provides less than half the effort. 2-Substantial/Maximal Assistance-helper does MORE THAN HALF the effort. [place] lifts or holds trunk or limbs and provides more than half the effort. 6-Kvnliyohf-ptvfiv does ALL the effort. Patient does none of the effort to complete the activity. Or, the assistance of 2 or more helpers is required for the patient to complete the activity. If activity was not attempted, code reason: 7-Patient Refused. 9-Not Applicable-not attempted and the patient did not perform the activity before the current illness, exacerbation or injury. 10-Not Attempted due to Environmental Limitations-(lack of equipment, weather restraints, etc.). 88-Not Attempted due to Medical Conditions or Safety Concerns. Eating (QC): 6 Oral Hygiene (QC): 6 Shower/Bathe Self (QC): 4 (SUP) Upper Body Dressing (QC): 6 Lower Body Dressing (QC): 4 (SBA/ min A due to abdomen) On/Off Footwear: 6 Toileting Hygiene (QC): 6 Toilet Transfer (QC): 6 Other Treatment Pt seen from [id number]. Pt completes bed mob with SBA, sit to stand SBA. Pt toilets/ sponge bath on toilet with SUP, dresses on toilet with min A for reminders for maintenance of no bending past 90* during pant donning. Pt complet es oral hygiene, abdomen noticeably larger/ more overhang on R side. Nursing notified. Pt states no BM for a couple days, states he will agree to enema by tomorrow. Pt educated on abdominal breathing for increased movement of bowels/ fluid. Pt return demonstrates. Pt returns to recliner chair, back brace placed with max A on this date. Pt sit to stand and ambulates from recliner chair to laundry room (sits in placed chair). Pt states worn out, requires max break. Laundry completed. Pt seen again from [id number] in bed, nursing present. Pt states difficulty with bed mob. Pt completes xinzjj-rdu-exvjz 4x. 1/4x attempts without use of bed rail, pt unable to complete without mod A without bed rail for LB movement. Pt educated on use of bed rail at home. Pt agrees, completes UB theraband ex in bed supine and in sit. Pt's posture assessed: R shoulder depressed and internally rotated compared to L. Pt educated on R hand usage/ utilization of arm to carry more objects, pt educated on stretching/ movements to strengthen back mm to encourage correct posture. Pt utilizes bathroom with SBA due to pain, requires min A for pant donning due to descended abdomen. Pt returns to bed, nursing/ med student present. Pt assisted back to recliner chair with SBA. All needs met, call light in reach. Education OT Patient Education: Exercise program, Home exercise program, Modified ADL techniques, Progress toward Goal/Update tx plan, Purpose of tx/functional activities, Transfer techniques Teaching Recipient: Patient Teaching Methods: Demonstration, Discussion Response to Teaching: Verbalize Understanding, Return Demonstration OT Short Term Goals Short Term Goals Time Frame: Jul 12, 2019 Eatin (met) Oral hygiene: 6 (met) Toileting hygiene: 3 (met) Shower/bathe self: 3 (met) Upper body dressin (met) Lower body dressin (met) Putting on/taking off footwear: 3 (met) OT Group Home Goals Rn Managed Care Goals Time Frame: Jul 19, 2019 Eating (QC): 6 (met) Oral Hygiene (QC): 6 (met) Toileting Hygiene (QC): 6 Shower/Bathe Self (QC): 6 Upper Body Dressing (QC): 6 Lower Body Dressing (QC): 6 On/Off Footwear (QC): 6 (met) Additional Goals: 1-Demonstrate ADL Tasks, 2-Verbalize Understanding, 3- ImproveStrength/Melissa 1=Demonstrate adherence to instructed precautions during ADL tasks. 2=Patient will verbalize/demonstrate understanding of assistive devices/modifications for ADL. 3=Patient will improve strength/tolerance for activity to enable patient to perform ADL's. OT Education/Plan Problem List/Assessment Assessment: Decreased Activ Tolerance, Decreased UE Strength, Edema, Impaired Bed Mobility, Impaired I ADL's, Impaired Self-Care Skills Discharge Recommendations Plan/Recommendations: Continue POC Treatment Plan/Plan of Care Treatment,Training & Education: Yes Patient would benefit from OT for education, treatment and training to promote independence in ADL's, mobility, safety and/or upper extremity function for ADL's. Plan of Care: ADL Retraining, Caregiver Training, Concurrent Therapy, Functional Mobility, Group Exercise/Act as Ind, Orthotic Fitting/Training, UE Funct Exercise/Act Treatment Duration: Jul 19, 2019 Frequency: At least 5 of 7 days/Wk (IRF) Estimated Hrs Per Day: 1.5 hours per day Agreement: Yes Rehab Potential: Good Time/GCodes Start Time: 08:15 (1030) Stop Time: 09:00 (1115) Total Time Billed (hr/min): 90 Billed Treatment Time 1st session: 3695-2792 1, ADL 3 (45) 2nd session: 2908-9326 1, FA (15), EX 2 (30)= 45 YASIR VALLADARES OTR Jul 13, 2019 11:42
--- NOTE | 2019-07-13 14:35 | Physical Therapy Daily Note ---
PT Daily Note-Current Subjective Patient in recliner pre tx, agrees to PT, has 7/10 pain in back, nurse notified. Appearance Patient in recliner post tx with nurse call, phone, tray, all needs met. Mental Status Patient Orientation: Person, Place, Situation back brace Transfers SCALE: Activities may be completed with or without assistive devices. 8-Gzrdwydviz-zbdprrw completes the activity by him/herself with no assistance from a helper. 5-Set-up or Clean-up Assistance-helper sets up or cleans up; patient completes activity. [place] assists only prior to or following the activity. 4-Supervision or Touching Assistance-helper provides verbal cues and/or touching/steadying and/or contact guard assistance as patient completes activity. Assistance may be provided throughout the activity or intermittently. 3-Partial/Moderate Assistance-helper does LESS THAN HALF the effort. [place] l ifts, holds or supports trunk or limbs, but provides less than half the effort. 2-Substantial/Maximal Assistance-helper does MORE THAN HALF the effort. [place] lifts or holds trunk or limbs and provides more than half the effort. 8-Ovjwepibn-mumheq does ALL the effort. Patient does none of the effort to complete the activity. Or, the assistance of 2 or more helpers is required for t he patient to complete the activity. If activity was not attempted, code reason: 7-Patient Refused. 9-Not Applicable-not attempted and the patient did not perform the activity before the current illness, exacerbation or injury. 10-Not Attempted due to Environmental Limitations-(lack of equipment, weather restraints, etc.). 88-Not Attempted due to Medical Conditions or Safety Concerns. Sit to Stand (QC): 4 Chair/Tnh-kb-Fiqib Xfer(QC): 4 SBA, good use of hands on armrests when standing and sitting Weight Bearing Right Lower Extremity: Right Full Weight Bearing Left Lower Extremity: Left Full Weight Bearing Gait Training Distance: 60'x4 Walk 10 feet (QC): 4 Walk 50 ft with 2 Turns(QC): 4 Gait Persons Needed: 1 Gait Assistive Device: FWW Slow, antalgic, shuffles more with fatigue. Tends to lean heavily on walker with fatigue. Treatments transfers, ambulation Assessment Current Status: Poor Progress more pain, very shorts steps and shuffling PT Short Term Goals Short Term Goals Time Frame: Jul 12, 2019 Sit to lyin Lying to sitting on side of be: 4 Sit to stand: 5 Chair/zvb-lx-ceaks transfer: 5 Walk 150 feet: 4 1 step (curb): 4 PT Parking Lot Signaler Goals Parking Lot Signaler Goals PT Fpc Goals Time Frame: Jul 20, 2019 Roll Left & Right (QC): 6 Sit to Lying (QC): 6 Lying-Sitting on Side/Bed(QC): 6 Sit to Stand (QC): 6 Chair/Cde-wa-Brdou Xfer(QC): 6 Toilet Transfer (QC): 6 Car Transfer (QC): 5 Does the Patient Walk: Yes Walk 10 feet (QC): 6 Walk 50ft with 2 Turns (QC): 6 Walk 150 ft (QC): 6 Walking 10ft on Uneven Surface: 6 1 Step (curb) (QC): 6 4 Steps (QC): 6 12 Steps (QC): 9 Picking up an Object (QC): 88 Does the Pt use WC or Scooter?: No PT Plan Problem List Problem List: Activity Tolerance, Functional Strength, Safety, Balance, Gait, Transfer, Bed Mobility, ROM Treatment/Plan Treatment Plan: Continue Plan of Care Treatment Plan: Bed Mobility, Education, Functional Activity Melissa, Functional Strength, Group Therapy, Gait, Safety, Therapeutic Exercise, Transfers Treatment Duration: Jul 20, 2019 Frequency: Modified Program (IRF) (25/12 per physician) Estimated Hrs Per Day: 1.5 hours per day (1 to 1.5) Patient and/or Family Agrees t: Yes Safety Risks/Education Patient Education: Gait Training, Transfer Techniques, Correct Positioning, Reviewed Don/Doff Brace, Safety Issues Teaching Recipient: Patient Teaching Methods: Demonstration, Discussion Response to Teaching: Reinforcement Needed Time/GCodes Time In: 1400 Time Out: 1430 Total Billed Treatment Time: 30 Total Billed Treatment 1 visit GT 30' RHONDA STEPHENS PT Jul 13, 2019 14:34
--- NOTE | 2019-07-13 15:29 | NUR ---
"RD ASSESSMENT PMHx: COPD; CAD; VT; GERD; hypercholesterolemia PT INTERACTION: Pt was awake and pleasant during nutrition follow-up. Pt states he has been eating poorly since last assessment. Note unable to determine recent PO intake, per chart review. Pt states no issues with n/v since last assessment. Pt states issues with constipation since last assessment. Note last BM was 07/11 and pt currently on bowel regimen of colace BID; senna BID; and miralax BID, per chart review. ABNORMAL NUTRITION-RELATED LAB VALUES LOW: K 3.4; BUN 6; Pro 5.7; alb 3.0 HIGH: glu 122 Est. kcal needs: 2245-3113 kcal | 15-18 kcal/kg Est. Pro needs: 88-110 g Pro | 0.8-1.0 g Pro/kg INTERVENTION: Continue with current diet order of Regular diet. Pt may benefit from nutrition supplementation if PO intake declines. Will continue to follow and reassess as pt needs and status change. MONITOR/EVALUATE: PO Intake; Plan of Care; Hydration Status; Weight Status; Lab Values Jesús Moore, , RD, LD"
[2019-07-13 18:00] VITALS: BP 129/66
[2019-07-13] MEDS: CYCLOBENZAPRINE 10 MG (FLEXERIL) TAB PO PRN (20:42)
[2019-07-13] MEDS: MELATONIN 3 MG TABLET PO PRN (20:43)
[2019-07-13] MEDS: MONTELUKAST 10 MG (SINGULAIR) TAB PO SCH (20:43)
[2019-07-14] MEDS: SENNA W/DOCUSATE (SENOKOT S) TABLET PO SCH ×3 (00:42→21:13)
[2019-07-14] MEDS: polyethylene glycoL POWDER 17 GM (MIRALAX) PACK PO SCH ×3 (00:42→21:32)
[2019-07-14] MEDS: HYDROcodone/APAP 5 MG/325 MG (LORTAB) TAB PO PRN ×3 (00:50→17:51)
[2019-07-14 05:47] VITALS: BP 133/69
[2019-07-14] MEDS: NYSTATIN ORAL SUSP 5 ML UDC PO SCH ×4 (06:00→21:11)
[2019-07-14] MEDS: KCL 10 MEQ TAB (MICRO K) PO SCH ×2 (06:00→17:49)
[2019-07-14] MEDS: MULTIVIT W/MINERALS TAB (THERAGRAN M) PO SCH (06:01)
[2019-07-14] MEDS: FUROSEMIDE 20 MG (LASIX) TAB PO SCH ×2 (06:01→17:49)
[2019-07-14 08:57] VITALS: BP 138/65
[2019-07-14] MEDS: LORATADINE (CLARITIN) 10 MG TAB PO SCH (08:58)
[2019-07-14] MEDS: CARVEDILOL 3.125 MG (COREG) TABLET PO SCH ×2 (08:58→21:11)
[2019-07-14] MEDS: DOCUSATE SODIUM 100 MG (COLACE) CAP PO SCH ×2 (08:58→21:13)
[2019-07-14] MEDS: CYCLOBENZAPRINE 10 MG (FLEXERIL) TAB PO PRN (08:59)
[2019-07-14] MEDS: LOSARTAN 50 MG (COZAAR) TAB PO SCH (08:59)
[2019-07-14] MEDS: FAMOTIDINE 20 MG (PEPCID) TABLET PO SCH ×2 (08:59→21:12)
[2019-07-14] MEDS: ADVAIR 250 MCG/50 MCG (NON-FORMULARY) IH SCH ×2 (09:32→20:56)
--- NOTE | 2019-07-14 11:30 | Cardiology Progress Note ---
Subjective Date Seen by Provider: Jul 14, 2019 Time Seen by Provider: 11:29 Subjective/Events-last exam Patient is sitting in a chair, peeling better, having mild abdominal discomfort Review of Systems General: No Chills, No Night Sweats, No Fatigue, No Malaise, No Appetite, No Other HEENT: No Head Aches, No Visual Changes, No Eye Pain, No Ear Pain, No Dysphasia, No Sinus Congestion, No Post Nasal Drip, No Sore Throat, No Other Pulmonary: No Dyspnea, No Cough, No Pleuritic Chest Pain, No Other Cardiovascular: No: Chest Pain, Palpitations, Orthopnea, Paroxysmal Noc. Dyspnea, Edema, Lt Headedness, Other Objective-Cardiology Exam Last Set of Vital Signs Vital Signs 07/14/19 07/14/19 07/14/19 07/14/19 05:47 06:02 08:57 09:37 Temp 37.0 Pulse 68 Resp 20 B/P (MAP) 138/65 (89) Pulse Ox 92 O2 Delivery Room Air Capillary Refill : Less Than 3 SecondsLess Than 3 Seconds I&O Intake and Output 07/14/19 00:00 Intake Total 1110 ml Output Total 500 ml Balance 610 ml Intake Oral 1110 ml Output Urine Total 500 ml # Voids 9 General: Alert, Oriented X3, Cooperative HEENT: Atraumatic, PERRLA Neck: Supple, No JVD, No Thyromegaly Lungs: Clear to Auscultation, Normal Air Movement Heart: Regular Rate, Normal S1, Normal S2, No Murmurs Abdomen: No Tenderness, No Hepatosplenomegaly Extremities: No Clubbing, Other (+1-2 edema BLE) Skin: No Rashes, No Significant Lesion Neuro: Normal Speech, Cranial Nerves 3-12 NL Psych/Mental Status: Mental Status NL, Mood NL A/P-Cardiology Admission Diagnosis Coronary artery disease Debility COPD Hypertension Assessment/Plan Spinal stenosis, had recent surgery, recovering slowly, generalized weakness and debility,complaining of some back pain this morning, receiving physical therapy. COPD, obstructive sleep apnea, shortness of breath on exertion. Status post pneumonia, recovering slowly and improving Coronary artery disease, history of multiple intervention in the past, had a stress test done in May 2019 showing no ischemia or infarction. Normal EF. Continue to monitor Peripheral edema, started on Lasix, continue to monitor Hypertension, controlled, continue to monitor. Hyperlipidemia. Continue to monitor lipids Morbid obesity, BMI 38, receiving physical therapy. Electrolyte imbalance, managed by primary care physician Constipation, resolved, management by PCP Clinical Quality Measures DVT/VTE Risk/Contraindication: Risk Factor Score Per Nursin RFS Level Per Nursing on Admit: 4+=Very High ADRYAN NAVARRO MD Jul 14, 2019 11:30
--- NOTE | 2019-07-14 11:51 | Physical Therapy Daily Note ---
PT Daily Note-Current Subjective Pt. initially declined therapy then with encouragement and education that movement helps decreased pain and speed recovery pt. conceded. Pt. did not rate his pain but did indicate it was back pain. Pt. found up in his room without FWW hanging on to furniture and bedside table using poor safety awareness and habits and was asked to use light for all times on his feet. Pt. grumbled and likely will not follow prudently Mental Status Patient Orientation: Normal For Age Attachments: Other-See Comments Transfers SCALE: Activities may be completed with or without assistive devices. 4-Dphvdmocqc-skowvoj completes the activity by him/herself with no assistance from a helper. 5-Set-up or Clean-up Assistance-helper sets up or cleans up; patient completes activity. [place] assists only prior to or following the activity. 4-Supervision or Touching Assistance-helper provides verbal cues and/or touching/steadying and/or contact guard assistance as patient completes activity. Assistance may be provided throughout the activity or intermittently. 3-Partial/Moderate Assistance-helper does LESS THAN HALF the effort. [place] lifts, holds or supports trunk or limbs, but provides less than half the effort. 2-Substantial/Maximal Assistance-helper does MORE THAN HALF the effort. [place] lifts or holds trunk or limbs and provides more than half the effort. 9-Pprjujtdw-rgziot does ALL the effort. Patient does none of the effort to complete the activity. Or, the assistance of 2 or more helpers is required for the patient to complete the activity. If activity was not attempted, code reason: 7-Patient Refused. 9-Not Applicable-not attempted and the patient did not perform the activity before the current illness, exacerbation or injury. 10-Not Attempted due to Environmental Limitations-(lack of equipment, weather restraints, etc.). 88-Not Attempted due to Medical Conditions or Safety Concerns. Roll Left & Right (QC): 5 Sit to Lying (QC): 5 Lying to Sitting/Side of Bed(Q: 5 Sit to Stand (QC): 5 Chair/Lfr-wo-Duijp Xfer(QC): 5 Weight Bearing Right Lower Extremity: Right Full Weight Bearing Left Lower Extremity: Left Full Weight Bearing Gait Training Does the Patient Walk?: Yes Walk 10 feet (QC): 4 Walk 50 ft with 2 Turns(QC): 4 Gait Persons Needed: 1 Gait Assistive Device: FWW pt. ambulated with FWW at extremely slow pace and extremely small step length with FWW too far in front of him and bent over to extreme. Pt. resisted correcting this but did walk 2nd leg of gait training with slightly better step length and position in FWW Exercises Seated Therapy Exercises: Ankle pumps, Sit to stand, Long arc quads, Hip flexion, Hip abd/add Seated Reps: 15 Assessment Current Status: Good Progress appears unmotivated and needs much encouragement to follow safety habits etc PT Short Term Goals Short Term Goals Time Frame: Jul 12, 2019 Sit to lyin Lying to sitting on side of be: 4 Sit to stand: 5 Chair/kes-xf-lxksu transfer: 5 Walk 150 feet: 4 1 step (curb): 4 PT Snf Goals [employer] Associate Goals PT Snf Goals Time Frame: Jul 20, 2019 Roll Left & Right (QC): 6 Sit to Lying (QC): 6 Lying-Sitting on Side/Bed(QC): 6 Sit to Stand (QC): 6 Chair/Sdf-px-Aspzo Xfer(QC): 6 Toilet Transfer (QC): 6 Car Transfer (QC): 5 Does the Patient Walk: Yes Walk 10 feet (QC): 6 Walk 50ft with 2 Turns (QC): 6 Walk 150 ft (QC): 6 Walking 10ft on Uneven Surface: 6 1 Step (curb) (QC): 6 4 Steps (QC): 6 12 Steps (QC): 9 Picking up an Object (QC): 88 Does the Pt use WC or Scooter?: No PT Plan Treatment/Plan Treatment Plan: Continue Plan of Care Treatment Plan: Bed Mobility, Education, Functional Activity Melissa, Functional Strength, Group Therapy, Gait, Safety, Therapeutic Exercise, Transfers Treatment Duration: Jul 20, 2019 Frequency: Modified Program (IRF) (25/12 per physician) Estimated Hrs Per Day: 1.5 hours per day (1 to 1.5) Patient and/or Family Agrees t: Yes Safety Risks/Education Patient Education: Gait Training, Transfer Techniques, Correct Positioning, Disease Process, Safety Issues Teaching Recipient: Patient Teaching Methods: Demonstration, Discussion Response to Teaching: Verbalize Understanding, Reinforcement Needed Time/GCodes Time In: 1005 Time Out: 1030 Total Billed Treatment Time: 25 Total Billed Treatment 1,GT15m,EX10m LUEBBER, JAYNE A CANDY CUTTER HAND Jul 14, 2019 11:51
--- NOTE | 2019-07-14 12:26 | PM&R Progress Note ---
Subjective HPI/CC On Admission Date Seen by Provider: Jul 14, 2019 Time Seen by Provider: 12:30 Subjective/Events-last exam Did not take the fleets as discussed yesterday and willing to take it today No BM for 3 days No pain is reported other than the back. Otherwise slow progress. Unsure where the endpoint will be with this patient who declines most interventions and meds Conferred with RN Reviewed therapy notes Checked meds and labs Review of Systems Musculoskeletal: back pain Objective Exam Vital Signs Vital Signs Date Time Temp Pulse Resp B/P (MAP) Pulse Ox O2 Delivery O2 Flow Rate FiO2 07/14/19 09:37 92 Room Air 07/14/19 08:57 138/65 (89) 07/14/19 06:02 37.0 07/14/19 05:47 68 20 Capillary Refill : Less Than 3 SecondsLess Than 3 Seconds General Appearance: No Apparent Distress, WD/WN, Chronically ill, Obese HEENT: PERRL/EOMI, Normal ENT Inspection, Pharynx Normal Neck: Full Range of Motion, Normal Inspection, Non Tender, Supple, Carotid Bruit Respiratory: Chest Non Tender, Lungs Clear, Normal Breath Sounds, No Accessory Muscle Use, No Respiratory Distress Cardiovascular: Regular Rate, Rhythm, No Edema, No Gallop, No JVD, No Murmur, Normal Peripheral Pulses Gastrointestinal: Normal Bowel Sounds, No Organomegaly, No Pulsatile Mass, Non Tender, Soft Back: Decreased Range of Motion, Muscle Spasm, Vertebral Tenderness Extremity: Normal Capillary Refill, Normal Inspection, Normal Range of Motion, Non Tender, No Calf Tenderness, No Pedal Edema Neurologic/Psychiatric: Alert, Oriented x3, No Motor/Sensory Deficits, Normal Mood/Affect, 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 FIM Transfers Therapy Code Descriptions/Definitions Functional [place] Measure: 0=Not Assessed/NA 4=Minimal Assistance 1=Total Assistance 5=Supervision or Setup 2=Maximal Assistance 6=Modified [place] 3=Moderate Assistance 7=Complete IndependenceSCALE: Activities may be completed with or without assistive devices. 2-Zvzoydernv-fcspqcq completes the activity by him/herself with no assistance from a helper. 5-Set-up or Clean-up Assistance-helper sets up or cleans up; patient completes activity. [place] assists only prior to or following the activity. 4-Supervision or Touching Assistance-helper provides verbal cues and/or touching/steadying and/or contact guard assistance as patient completes activity. Assistance may be provided throughout the activity or intermittently. 3-Partial/Moderate Assistance-helper does LESS THAN HALF the effort. [place] lifts, holds or supports trunk or limbs, but provides less than half the effort. 2-Substantial/Maximal Assistance-helper does MORE THAN HALF the effort. [place] lifts or holds trunk or limbs and provides more than half the effort. 6-Tqcmsypcs-qgtdjx does ALL the effort. Patient does none of the effort to complete the activity. Or, the assistance of 2 or more helpers is required for the patient to complete the activity. If activity was not attempted, code reason: 7-Patient Refused. 9-Not Applicable-not attempted and the patient did not perform the activity before the current illness, exacerbation or injury. 10-Not Attempted due to Environmental Limitations-(lack of equipment, weather restraints, etc.). 88-Not Attempted due to Medical Conditions or Safety Concerns. Roll Left to Right (QC): 5 Sit to Lying (QC): 5 Sit to Stand (QC): 5 Chair/Ebr-qb-Zsjhe Xfer(QC): 5 Car Transfer (QC): 88 (pt unsafe to attempt this date. ) Gait Training Does the Patient Walk?: Yes Distance: 60'x4 Walk 10 feet (QC): 4 Walk 50 ft with 2 Turns(QC): 4 Walk 150 ft (QC): 88 Walking 10ft/uneven surface-QC: 88 Gait Persons Needed: 1 Gait Assistive Device: FWW Wheelchair Training Does the Pt Use a Wheelchair?: No Stair Training 1 Step (curb) (QC): 88 4 Steps (QC): 88 12 Steps (QC): 88 Balance Picking up an Object (QC): 88 (contraindicated with recent back surgery.) ADL-Treatment Eating (QC): 6 Oral Hygiene (QC): 6 Shower/Bathe Self (QC): 4 (SUP) Upper Body Dressing (QC): 6 Lower Body Dressing (QC): 4 (SBA/ min A due to abdomen) On/Off Footwear (QC): 6 Toileting Hygiene (QC): 6 Toilet Transfer (QC): 6 Assessment/Plan Assessment and Plan Assess & Plan/Chief Complaint Assessment: Lumbar stenosis with radiculopathy post op with severe debility PNA acute Sepsis DIONNE on biPAP HTN CAD Plan: IRF protocol but slow process 25/12 due to PNA and severe debility BM regimen to maintain Patient refuses a lot of meds and interventions Much improved but difficult to ascertain if he can gain more in order to go home Dispo pending Fleets prn daily (1) Stenosis, spinal, lumbar (2) Coronary artery disease Status: Acute (3) Pneumonia Status: Acute (4) Lumbar radiculopathy (5) Sepsis (6) Leukocytosis (7) Non-compliance (8) Constipation (9) Hypertension (10) DIONNE treated with BiPAP (11) Lactic acid acidosis AYDE FRANCO DO Jul 14, 2019 12:25
[2019-07-14] MEDS: LACTULOSE SYRUP 10GM/15ML (ENULOSE) 30ML UDC PO PRN (15:16)
[2019-07-14 18:30] VITALS: BP 136/79
[2019-07-14] MEDS: MONTELUKAST 10 MG (SINGULAIR) TAB PO SCH (21:11)
[2019-07-14] MEDS: MELATONIN 3 MG TABLET PO PRN (21:11)
[2019-07-15] MEDS: HYDROcodone/APAP 5 MG/325 MG (LORTAB) TAB PO PRN ×3 (00:38→17:47)
[2019-07-15] MEDS: NYSTATIN ORAL SUSP 5 ML UDC PO SCH ×4 (02:13→20:03)
[2019-07-15 06:00] VITALS: BP 131/67
[2019-07-15] MEDS: FUROSEMIDE 20 MG (LASIX) TAB PO SCH ×2 (06:01→17:47)
[2019-07-15] MEDS: KCL 10 MEQ TAB (MICRO K) PO SCH ×2 (06:01→17:47)
[2019-07-15] MEDS: MULTIVIT W/MINERALS TAB (THERAGRAN M) PO SCH (06:01)
[2019-07-15] MEDS: polyethylene glycoL POWDER 17 GM (MIRALAX) PACK PO SCH ×2 (09:14→20:03)
[2019-07-15] MEDS: LACTULOSE SYRUP 10GM/15ML (ENULOSE) 30ML UDC PO PRN (09:14)
[2019-07-15] MEDS: LORATADINE (CLARITIN) 10 MG TAB PO SCH (09:15)
[2019-07-15] MEDS: LOSARTAN 50 MG (COZAAR) TAB PO SCH (09:15)
[2019-07-15] MEDS: SENNA W/DOCUSATE (SENOKOT S) TABLET PO SCH ×2 (09:15→20:03)
[2019-07-15] MEDS: CARVEDILOL 3.125 MG (COREG) TABLET PO SCH ×2 (09:15→20:03)
[2019-07-15] MEDS: DOCUSATE SODIUM 100 MG (COLACE) CAP PO SCH ×2 (09:15→20:03)
[2019-07-15] MEDS: FAMOTIDINE 20 MG (PEPCID) TABLET PO SCH ×2 (09:15→20:03)
[2019-07-15] MEDS: ADVAIR 250 MCG/50 MCG (NON-FORMULARY) IH SCH ×2 (10:24→19:36)
--- NOTE | 2019-07-15 11:55 | PM&R Progress Note ---
Subjective HPI/CC On Admission Date Seen by Provider: Jul 15, 2019 Time Seen by Provider: 12:00 Subjective/Events-last exam Did not take the fleets as discussed again yesterday and willing to take it today he states No BM for 4 days No pain is reported other than the back. Otherwise slow progress. Unsure where the endpoint will be with this patient who declines most interventions and meds Patient tells me one thing and then does another when I leave, very difficult to manage Conferred with RN Reviewed therapy notes Checked meds and labs Review of Systems Musculoskeletal: back pain Objective Exam Vital Signs Vital Signs Date Time Temp Pulse Resp B/P (MAP) Pulse Ox O2 Delivery O2 Flow Rate FiO2 07/15/19 10:24 92 Room Air 07/15/19 06:00 36.4 78 18 131/67 (88) Capillary Refill : Less Than 3 SecondsLess Than 3 Seconds General Appearance: No Apparent Distress, WD/WN, Chronically ill, Obese HEENT: PERRL/EOMI, Normal ENT Inspection, Pharynx Normal Neck: Full Range of Motion, Normal Inspection, Non Tender, Supple, Carotid Bruit Respiratory: Chest Non Tender, Lungs Clear, Normal Breath Sounds, No Accessory Muscle Use, No Respiratory Distress Cardiovascular: Regular Rate, Rhythm, No Edema, No Gallop, No JVD, No Murmur, Normal Peripheral Pulses Gastrointestinal: Normal Bowel Sounds, No Organomegaly, No Pulsatile Mass, Non Tender, Soft Back: Decreased Range of Motion, Muscle Spasm, Vertebral Tenderness Extremity: Normal Capillary Refill, Normal Inspection, Normal Range of Motion, Non Tender, No Calf Tenderness, No Pedal Edema Neurologic/Psychiatric: Alert, Oriented x3, No Motor/Sensory Deficits, Normal Mood/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 FIM Transfers Therapy Code Descriptions/Definitions Functional [place] Measure: 0=Not Assessed/NA 4=Minimal Assistance 1=Total Assistance 5=Supervision or Setup 2=Maximal Assistance 6=Modified [place] 3=Moderate Assistance 7=Complete IndependenceSCALE: Activities may be completed with or without assistive devices. 6-Hfmxtegbah-brriyib completes the activity by him/herself with no assistance from a helper. 5-Set-up or Clean-up Assistance-helper sets up or cleans up; patient completes activity. [place] assists only prior to or following the activity. 4-Supervision or Touching Assistance-helper provides verbal cues and/or touching/steadying and/or contact guard assistance as patient completes activity. Assistance may be provided throughout the activity or intermittently. 3-Partial/Moderate Assistance-helper does LESS THAN HALF the effort. [place] lifts, holds or supports trunk or limbs, but provides less than half the effort. 2-Substantial/Maximal Assistance-helper does MORE THAN HALF the effort. [place] lifts or holds trunk or limbs and provides more than half the effort. 0-Ofcxmbhbl-ggufto does ALL the effort. Patient does none of the effort to complete the activity. Or, the assistance of 2 or more helpers is required for the patient to complete the activity. If activity was not attempted, code reason: 7-Patient Refused. 9-Not Applicable-not attempted and the patient did not perform the activity bef ore the current illness, exacerbation or injury. 10-Not Attempted due to Environmental Limitations-(lack of equipment, weather r estraints, etc.). 88-Not Attempted due to Medical Conditions or Safety Concerns. Roll Left to Right (QC): 5 Sit to Lying (QC): 5 Sit to Stand (QC): 5 Chair/Rwm-ut-Ifhnl Xfer(QC): 5 Car Transfer (QC): 88 (pt unsafe to attempt this date. ) Gait Training Does the Patient Walk?: Yes Distance: 60'x4 Walk 10 feet (QC): 4 Walk 50 ft with 2 Turns(QC): 4 Walk 150 ft (QC): 88 Walking 10ft/uneven surface-QC: 88 Gait Persons Needed: 1 Gait Assistive Device: FWW Wheelchair Training Does the Pt Use a Wheelchair?: No Stair Training 1 Step (curb) (QC): 88 4 Steps (QC): 88 12 Steps (QC): 88 Balance Picking up an Object (QC): 88 (contraindicated with recent back surgery.) ADL-Treatment Eating (QC): 6 Oral Hygiene (QC): 6 Shower/Bathe Self (QC): 4 (SUP) Upper Body Dressing (QC): 6 Lower Body Dressing (QC): 4 (SBA/ min A due to abdomen) On/Off Footwear (QC): 6 Toileting Hygiene (QC): 6 Toilet Transfer (QC): 6 Assessment/Plan Assessment and Plan Assess & Plan/Chief Complaint Assessment: Lumbar stenosis with radiculopathy post op with severe debility PNA acute Sepsis DIONNE on biPAP HTN CAD Plan: IRF protocol but slow process 25/12 due to PNA and severe debility BM regimen to maintain Patient refuses a lot of meds and interventions Much improved but difficult to ascertain if he can gain more in order to go home Dispo pending Fleets prn daily (1) Stenosis, spinal, lumbar (2) Coronary artery disease Status: Acute (3) Pneumonia Status: Acute (4) Lumbar radiculopathy (5) Sepsis (6) Leukocytosis (7) Non-compliance (8) Constipation (9) Hypertension (10) DIONNE treated with BiPAP (11) Lactic acid acidosis AYDE FRANCO DO Jul 15, 2019 11:55
[2019-07-15] MEDS: IBUPROFEN TABLET 200 MG TAB PO PRN (14:39)
[2019-07-15 18:23] VITALS: BP 118/69
[2019-07-15] MEDS: MONTELUKAST 10 MG (SINGULAIR) TAB PO SCH (20:03)
[2019-07-16] MEDS: NYSTATIN ORAL SUSP 5 ML UDC PO SCH ×4 (01:57→19:15)
[2019-07-16] MEDS: HYDROcodone/APAP 5 MG/325 MG (LORTAB) TAB PO PRN ×2 (02:01→08:38)
[2019-07-16 05:09] VITALS: BP 152/83
[2019-07-16] MEDS: FUROSEMIDE 20 MG (LASIX) TAB PO SCH ×2 (06:12→16:56)
[2019-07-16] MEDS: MULTIVIT W/MINERALS TAB (THERAGRAN M) PO SCH (06:13)
[2019-07-16] MEDS: KCL 10 MEQ TAB (MICRO K) PO SCH ×2 (06:13→16:56)
[2019-07-16 07:25] LABS: BASOPHILS % (AUTO) 0 % (0-10); EOSINOPHILS # (AUTO) 0.2 10^3/uL (0.0-0.3); EOSINOPHILS % (AUTO) 3 % (0-10); HEMATOCRIT 31 % (40-54); LYMPHOCYTES # (AUTO) 1.6 X 10^3 (1.0-4.0); LYMPHOCYTES % (AUTO) 19 % (12-44); MEAN CORPUSCULAR HEMOGLOBIN 32 PG (25-34); MEAN CORPUSCULAR HGB CONC 33 G/DL (32-36); MEAN CORPUSCULAR VOLUME 98 FL (80-99); MONOCYTES % (AUTO) 12 % (0-12); NEUTROPHILS # (AUTO) 5.8 X 10^3 (1.8-7.8); NEUTROPHILS % (AUTO) 67 % (42-75); PLATELET COUNT 490 10^3/uL (130-400); RED CELL DISTRIBUTION WIDTH 13.7 % (10.0-14.5); WHITE BLOOD COUNT 8.8 10^3/uL (4.3-11.0)
[2019-07-16 07:43] LABS: ALANINE AMINOTRANSFERASE 29 U/L (0-55); ALBUMIN 3.3 GM/DL (3.2-4.5); ALKALINE PHOSPHATASE 121 U/L (40-136); BILIRUBIN,TOTAL 0.5 MG/DL (0.1-1.0); BUN/CREATININE RATIO 11; CARBON DIOXIDE 23 MMOL/L (21-32); CHLORIDE 101 MMOL/L (98-107); GFR ESTIMATED > 60; GLUCOSE 113 MG/DL (70-105); POTASSIUM 4.2 MMOL/L (3.6-5.0); SODIUM 134 MMOL/L (135-145); TOTAL PROTEIN 6.2 GM/DL (6.4-8.2)
[2019-07-16] MEDS: ALBUTEROL IH PRN ×2 (08:23→19:22)
[2019-07-16] MEDS: ADVAIR 250 MCG/50 MCG (NON-FORMULARY) IH SCH ×2 (08:24→19:21)
--- NOTE | 2019-07-16 08:29 | Cardiology Progress Note ---
Subjective Date Seen by Provider: Jul 16, 2019 Time Seen by Provider: 08:28 Subjective/Events-last exam Patient is sitting up in chair, complaining of back pain. Denies any abdominal pain this morning, but c/o abd distention. Review of Systems General: No Chills, No Night Sweats; Fatigue, Malaise; No Appetite, No Other HEENT: No Head Aches, No Visual Changes, No Eye Pain, No Ear Pain, No Dysphasia, No Sinus Congestion, No Post Nasal Drip, No Sore Throat, No Other Pulmonary: No Dyspnea, No Cough, No Pleuritic Chest Pain, No Other Cardiovascular: Edema; No: Chest Pain, Palpitations, Orthopnea, Paroxysmal Noc. Dyspnea, Lt Headedness, Other Objective-Cardiology Exam Last Set of Vital Signs Vital Signs 07/16/19 07/16/19 05:09 08:23 Temp 37.0 Pulse 80 Resp 18 B/P (MAP) 152/83 (106) Pulse Ox 95 O2 Delivery Room Air Capillary Refill : Less Than 3 SecondsLess Than 3 Seconds I&O Intake and Output 07/16/19 00:00 Intake Total 1500 ml Output Total 950 ml Balance 550 ml Intake Oral 1500 ml Output Urine Total 950 ml # Voids 6 General: Alert, Oriented X3, Cooperative HEENT: Atraumatic, PERRLA Neck: Supple, No JVD, No Thyromegaly Lungs: Clear to Auscultation, Normal Air Movement Heart: Regular Rate, Normal S1, Normal S2, No Murmurs Abdomen: No Tenderness, No Hepatosplenomegaly Extremities: No Clubbing, Other (+1-2 edema BLE) Skin: No Significant Lesion, Other (erythema on the) Neuro: Normal Speech, Cranial Nerves 3-12 NL Psych/Mental Status: Mental Status NL, Mood NL Results Lab Laboratory Tests 07/16/19 06:50 A/P-Cardiology Admission Diagnosis Coronary artery disease Debility COPD Hypertension Assessment/Plan Spinal stenosis, had recent surgery, recovering slowly, generalized weakness and debility,complaining of some back pain this morning, receiving physical therapy. COPD, obstructive sleep apnea, shortness of breath on exertion. Status post pneumonia, recovering slowly and improving Coronary artery disease, history of multiple intervention in the past, had a stress test done in May 2019 showing no ischemia or infarction. Normal EF. Continue to monitor Peripheral edema, started on Lasix, continue to monitor Hypertension, controlled, continue to monitor. Hyperlipidemia. Continue to monitor lipids Morbid obesity, BMI 38, receiving physical therapy. Electrolyte imbalance, managed by primary care physician Constipation, management by PCP Patient was seen and evaluated with Yoon, examination performed, management plan was discussed, agree with the current scribed note, I made few changes to the note using Italic font Patient is feeling better, still having pedal edema, having erythema on the lower extremities Continue on diuretics, continue to monitor blood pressure and lipids Clinical Quality Measures DVT/VTE Risk/Contraindication: Risk Factor Score Per Nursin RFS Level Per Nursing on Admit: 4+=Very High YOON CASTRO Jul 16, 2019 08:29 ADRYAN NAVARRO MD Jul 16, 2019 11:17
[2019-07-16] MEDS: polyethylene glycoL POWDER 17 GM (MIRALAX) PACK PO SCH ×2 (08:31→21:29)
[2019-07-16] MEDS: DOCUSATE SODIUM 100 MG (COLACE) CAP PO SCH ×2 (08:37→21:29)
[2019-07-16] MEDS: LOSARTAN 50 MG (COZAAR) TAB PO SCH (08:37)
[2019-07-16] MEDS: FAMOTIDINE 20 MG (PEPCID) TABLET PO SCH ×2 (08:37→21:33)
[2019-07-16] MEDS: SENNA W/DOCUSATE (SENOKOT S) TABLET PO SCH ×2 (08:37→21:30)
[2019-07-16] MEDS: CARVEDILOL 3.125 MG (COREG) TABLET PO SCH ×2 (08:37→21:29)
[2019-07-16] MEDS: LORATADINE (CLARITIN) 10 MG TAB PO SCH (08:37)
[2019-07-16] MEDS: FLEET ENEMA ADULT 1 EA BTL PR PRN (08:38)
--- NOTE | 2019-07-16 08:40 | PM&R Progress Note ---
Subjective HPI/CC On Admission Date Seen by Provider: Jul 16, 2019 Time Seen by Provider: 08:45 Subjective/Events-last exam BM 07/13/19. Fleets enema ordered but he refuse everyday but then he tells me he is agreeable to have it done to me. Pt gives conflicting stories. Staple removal will be decided from Dr. Thibodeaux spine surgeon. Simply no progress made. Conferred with RN Reviewed therapy notes Checked meds and labs Review of Systems General: Fatigue Gastrointestinal: Constipation Musculoskeletal: back pain Objective Exam Vital Signs Vital Signs Date Time Temp Pulse Resp B/P (MAP) Pulse Ox O2 Delivery O2 Flow Rate FiO2 07/16/19 19:22 95 07/16/19 18:00 37.0 75 18 122/69 (86) Room Air Capillary Refill : Less Than 3 SecondsLess Than 3 Seconds General Appearance: No Apparent Distress, WD/WN, Chronically ill, Obese HEENT: PERRL/EOMI, Normal ENT Inspection, Pharynx Normal Neck: Full Range of Motion, Normal Inspection, Non Tender, Supple, Carotid Bruit Respiratory: Chest Non Tender, Lungs Clear, Normal Breath Sounds, No Accessory Muscle Use, No Respiratory Distress Cardiovascular: Regular Rate, Rhythm, No Edema, No Gallop, No JVD, No Murmur, Normal Peripheral Pulses Gastrointestinal: Normal Bowel Sounds, No Organomegaly, No Pulsatile Mass, Non Tender, Soft Back: Decreased Range of Motion, Muscle Spasm, Vertebral Tenderness Extremity: Normal Capillary Refill, Normal Inspection, Normal Range of Motion, Non Tender, No Calf Tenderness, No Pedal Edema Neurologic/Psychiatric: Alert, Oriented x3, No Motor/Sensory Deficits, Normal Mood/Affect, glass deposition tender II-XII Norm as Tested, Motor Weakness (lower legs) Skin: Normal Color, Warm/Dry Lymphatic: No Adenopathy Results/Procedures Lab Laboratory Tests 07/16/19 06:50 Patient resulted labs reviewed. FIM Transfers Therapy Code Descriptions/Definitions Functional [place] Measure: 0=Not Assessed/NA 4=Minimal Assistance 1=Total Assistance 5=Supervision or Setup 2=Maximal Assistance 6=Modified [place] 3=Moderate Assistance 7=Complete IndependenceSCALE: Activities may be completed with or without assistive devices. 0-Hqfqgjhrrk-nafswfo completes the activity by him/herself with no assistance from a helper. 5-Set-up or Clean-up Assistance-helper sets up or cleans up; patient completes activity. [place] assists only prior to or following the activity. 4-Supervision or Touching Assistance-helper provides verbal cues and/or touching/steadying and/or contact guard assistance as patient completes activity. Assistance may be provided throughout the activity or intermittently. 3-Partial/Moderate Assistance-helper does LESS THAN HALF the effort. [place] lifts, holds or supports trunk or limbs, but provides less than half the effort. 2-Substantial/Maximal Assistance-helper does MORE THAN HALF the effort. [place] lifts or holds trunk or limbs and provides more than half the effort. 3-Cgymznbzo-bjtvms does ALL the effort. Patient does none of the effort to complete the activity. Or, the assistance of 2 or more helpers is required for the patient to complete the activity. If activity was not attempted, code reason: 7-Patient Refused. 9-Not Applicable-not attempted and the patient did not perform the activity before the current illness, exacerbation or injury. 10-Not Attempted due to Environmental Limitations-(lack of equipment, weather restraints, etc.). 88-Not Attempted due to Medical Conditions or Safety Concerns. Roll Left to Right (QC): 5 Sit to Lying (QC): 5 Sit to Stand (QC): 5 Chair/Vye-bk-Alzae Xfer(QC): 5 Car Transfer (QC): 88 (pt unsafe to attempt this date. ) Gait Training Does the Patient Walk?: Yes Distance: 60'x4 Walk 10 feet (QC): 4 Walk 50 ft with 2 Turns(QC): 4 Walk 150 ft (QC): 88 Walking 10ft/uneven surface-QC: 88 Gait Persons Needed: 1 Gait Assistive Device: FWW Wheelchair Training Does the Pt Use a Wheelchair?: No Stair Training 1 Step (curb) (QC): 88 4 Steps (QC): 88 12 Steps (QC): 88 Balance Picking up an Object (QC): 88 (contraindicated with recent back surgery.) ADL-Treatment Eating (QC): 6 Oral Hygiene (QC): 6 Shower/Bathe Self (QC): 4 (SUP) Upper Body Dressing (QC): 6 Lower Body Dressing (QC): 4 (SBA/ min A due to abdomen) On/Off Footwear (QC): 6 Toileting Hygiene (QC): 6 Toilet Transfer (QC): 6 Assessment/Plan Assessment and Plan Assess & Plan/Chief Complaint Assessment: Lumbar stenosis with radiculopathy post op with severe debility PNA acute Sepsis DIONNE on biPAP HTN CAD Plan: IRF protocol but slow process 25/12 due to PNA and severe debility BM regimen to maintain Patient refuses a lot of meds and interventions Much improved but difficult to ascertain if he can gain more in order to go home Dispo pending Fleets prn daily (1) Stenosis, spinal, lumbar (2) Coronary artery disease Status: Acute (3) Pneumonia Status: Acute (4) Lumbar radiculopathy (5) Sepsis (6) Leukocytosis (7) Non-compliance (8) Constipation (9) Hypertension (10) DIONNE treated with BiPAP (11) Lactic acid acidosis AYDE FRANCO DO Jul 16, 2019 08:40
--- NOTE | 2019-07-16 09:53 | Occupational Ther Daily Note ---
OT Current Status-Daily Note Subjective Pt seen in bed, laying on L side. Pt expresses desire to not complete therapy today. Pt educated on ARU standards and ability to complete ADLs/ ex in room. Pt agrees with [facility]-max encouragement Mental Status/Objective Patient Orientation: Normal For Age ADL-Treatment Therapy Code Descriptions/Definitions Functional [place] Measure: 0=Not Assessed/NA 4=Minimal Assistance 1=Total Assistance 5=Supervision or Setup 2=Maximal Assistance 6=Modified [place] 3=Moderate Assistance 7=Complete IndependenceSCALE: Activities may be completed with or without assistive devices. 2-Bkzqjhcoyd-awgpfkq completes the activity by him/herself with no assistance from a helper. 5-Set-up or Clean-up Assistance-helper sets up or cleans up; patient completes activity. [place] assists only prior to or following the activity. 4-Supervision or Touching Assistance-helper provides verbal cues and/or touching/steadying and/or contact guard assistance as patient completes activity. Assistance may be provided throughout the activity or intermittently. 3-Partial/Moderate Assistance-helper does LESS THAN HALF the effort. [place] lifts, holds or supports trunk or limbs, but provides less than half the effort. 2-Substantial/Maximal Assistance-helper does MORE THAN HALF the effort. [place] lifts or holds trunk or limbs and provides more than half the effort. 9-Yzfsnyeyp-rvzibu does ALL the effort. Patient does none of the effort to complete the activity. Or, the assistance of 2 or more helpers is required for the patient to complete the activity. If activity was not attempted, code reason: 7-Patient Refused. 9-Not Applicable-not attempted and the patient did not perform the activity befo re the current illness, exacerbation or injury. 10-Not Attempted due to Environmental Limitations-(lack of equipment, weather re straints, etc.). 88-Not Attempted due to Medical Conditions or Safety Concerns. Eating (QC): 6 (Pt completes breakfast in chair with IND.) Oral Hygiene (QC): 5 (s/u in front of pt for denture hygiene.) Shower/Bathe Self (QC): 7 (Pt refuses sponge bath/ showering stating pain is too intense) Upper Body Dressing (QC): 7 (denies changing shirt this date.) Lower Body Dressing (QC): 4 (CGA due to pain in stance to pull up. Use of AE to don.) On/Off Footwear: 7 (Pt refuses to don/ doff ) Toileting Hygiene (QC): 4 (SBA) Toilet Transfer (QC): 4 (SBA with walker.) Other Treatment Pt seen in bed, max encouragement for bed mob/ eating breakfast. Pt states max pain, states no BM for days. Pt states he would like enema. Pt's nurse notified of pain/ enema request. Pt has reddened area on distal LE's bilaterally (similar temperature bilaterally). R more reddened/ larger area than R. Largest reddened area spread 8.5 cm from prox-> distal. Pt denies all ADLs for now. Pt utilizes urinal EOB with IND. Sit to stand/ transfer to chair with SBA with walker. Pt completes breakfast and oral hygiene in recliner, energy conservation education provided by handout and through explanation. Pt completes UE theraband ex in recliner: 10 reps bilaterally: back flies, shoulder external rotation. Pt's nurse provides enema. Pt competes bed mob sit to supine with SBA, completes enema, able to wash bottom/ layne area in side lying. Pt continues to deny full sponge bath. Pt bed mob with min A from supine to sit. Re-dresses LB with AE. Pt moves with walker to commode, completes UB exercises (15 reps bilaterally), able to have minimal-moderate loose BM. Pt continues UE ex on commode until end of session. Sits in recliner chair, all needs met, call light in reach. Pt states he doesn't think he will participate in PT, pt educated on ARU expectations and ability to continue movements to encourage more BM/ pain management. Pt states he knows, just doesn't know if he will be able to complete due to pain. PT notified of pt statements. Education OT Patient Education: Energy conservation, Exercise program, Home exercise program, Modified ADL techniques, Purpose of tx/functional activities, Reviewed precautions Teaching Recipient: Patient Teaching Methods: Demonstration, Handout, Discussion Response to Teaching: Verbalize Understanding, Return Demonstration OT Short Term Goals Short Term Goals Time Frame: Jul 12, 2019 Eatin (met) Oral hygiene: 6 (met) Toileting hygiene: 3 (met) Shower/bathe self: 3 (met) Upper body dressin (met) Lower body dressin (met) Putting on/taking off footwear: 3 (met) OT Retirement Goals Retirement Goals Time Frame: Jul 19, 2019 Eating (QC): 6 (met) Oral Hygiene (QC): 6 (met) Toileting Hygiene (QC): 6 Shower/Bathe Self (QC): 6 Upper Body Dressing (QC): 6 Lower Body Dressing (QC): 6 On/Off Footwear (QC): 6 (met) Additional Goals: 1-Demonstrate ADL Tasks, 2-Verbalize Understanding, 3- ImproveStrength/Melissa 1=Demonstrate adherence to instructed precautions during ADL tasks. 2=Patient will verbalize/demonstrate understanding of assistive devices/modifications for ADL. 3=Patient will improve strength/tolerance for activity to enable patient to perform ADL's. OT Education/Plan Problem List/Assessment Assessment: Decreased Activ Tolerance, Edema, Impaired I ADL's, Impaired Self- Care Skills Discharge Recommendations Plan/Recommendations: Continue POC Therapy Discharge Recommendati: Home & Family Equpiment Recommendations-D/C: Hip Kit Treatment Plan/Plan of Care Treatment,Training & Education: Yes Patient would benefit from OT for education, treatment and training to promote independence in ADL's, mobility, safety and/or upper extremity function for ADL's. Plan of Care: ADL Retraining, Caregiver Training, Concurrent Therapy, Functional Mobility, Group Exercise/Act as Ind, Orthotic Fitting/Training, UE Funct Exercise/Act Treatment Duration: Jul 19, 2019 Frequency: At least 5 of 7 days/Wk (IRF) Estimated Hrs Per Day: 1.5 hours per day Agreement: Yes Rehab Potential: Good Time/GCodes Start Time: 08:00 Stop Time: 09:30 Total Time Billed (hr/min): 90 Billed Treatment Time 1, ADL 3 (45), FA (15), EX 2 (30)= 90 YASIR VALLADARES OTR Jul 16, 2019 09:53
--- NOTE | 2019-07-16 11:36 | Physical Therapy Progress Note ---
Therapy Progress Note Patient refuses physical therapy twice this morning. He says he doesn't want to seem defiant but he wants to decline therapy today. Patient states it is a combination of fatigue, back pain, and bowel issues that are causing him to decline therapy. PT will check back again this afternoon. RHONDA STEPHENS PT Jul 16, 2019 11:36
--- NOTE | 2019-07-16 13:42 | Physical Therapy Progress Note ---
Therapy Progress Note 15 minutes spent talking with, educating and encouraging patient to participate in PT session, patient adamantly refusing physical therapy this afternoon. Pt states he doesn't want to seem defiant but will not perform physical therapy today. Offered for pt to attempt ex's in bed but again refused. Patient states it is a combination of fatigue, back pain, and bowel issues (had enema this morning) that are causing him to decline therapy. States he knows he will be up to doing it tomorrow. JASMYNE RUIZ CLAMP REMOVER Jul 16, 2019 13:42
[2019-07-16] MEDS: IBUPROFEN TABLET 200 MG TAB PO PRN ×2 (14:28→21:30)
[2019-07-16 18:00] VITALS: BP 122/69
[2019-07-16] MEDS: NYSTATIN CREAM (MYCOSTATIN) 30 GM TUBE TP SCH (21:30)
[2019-07-16] MEDS: TRIAMCINOLONE 0.1% CR (KENALOG) 80 GM TUBE TP SCH (21:31)
[2019-07-16] MEDS: MONTELUKAST 10 MG (SINGULAIR) TAB PO SCH (21:35)
[2019-07-17] MEDS: NYSTATIN ORAL SUSP 5 ML UDC PO SCH ×4 (01:26→20:48)
[2019-07-17 06:00] VITALS: BP 144/64
[2019-07-17] MEDS: FUROSEMIDE 20 MG (LASIX) TAB PO SCH ×2 (06:50→17:01)
[2019-07-17] MEDS: KCL 10 MEQ TAB (MICRO K) PO SCH ×2 (06:50→17:01)
[2019-07-17] MEDS: HYDROcodone/APAP 5 MG/325 MG (LORTAB) TAB PO PRN ×3 (06:50→17:02)
[2019-07-17] MEDS: MULTIVIT W/MINERALS TAB (THERAGRAN M) PO SCH (06:50)
--- NOTE | 2019-07-17 08:12 | Cardiology Progress Note ---
Subjective Date Seen by Provider: Jul 17, 2019 Time Seen by Provider: 08:11 Subjective/Events-last exam Sitting up at bedside. C/o mild back pain. Denies any chest pain Objective-Cardiology Exam Last Set of Vital Signs Vital Signs 07/17/19 06:00 Temp 36.9 Pulse 76 Resp 18 B/P (MAP) 144/64 (90) Pulse Ox 97 O2 Delivery Room Air Capillary Refill : Less Than 3 SecondsLess Than 3 Seconds I&O Intake and Output 07/17/19 00:00 Intake Total 1670 ml Output Total 1300 ml Balance 370 ml Intake Oral 1670 ml Output Urine Total 1300 ml # Voids 4 # Bowel Movements 2 General: Alert, Oriented X3, Cooperative HEENT: Atraumatic, PERRLA Neck: Supple, No JVD, No Thyromegaly Lungs: Clear to Auscultation, Normal Air Movement Heart: Regular Rate, Normal S1, Normal S2, No Murmurs Abdomen: No Tenderness, No Hepatosplenomegaly Extremities: No Clubbing, Other (+1-2 edema BLE) Skin: No Significant Lesion, Other (erythema on the) Neuro: Normal Speech, Cranial Nerves 3-12 NL Psych/Mental Status: Mental Status NL, Mood NL A/P-Cardiology Admission Diagnosis Coronary artery disease Debility COPD Hypertension Assessment/Plan Spinal stenosis, had recent surgery, recovering slowly, generalized weakness and debility,complaining of some back pain this morning, receiving physical therapy. COPD, obstructive sleep apnea, shortness of breath on exertion. Status post pneumonia, recovering slowly and improving Coronary artery disease, history of multiple intervention in the past, had a stress test done in May 2019 showing no ischemia or infarction. Normal EF. Continue to monitor Peripheral edema, started on Lasix, continue to monitor Hypertension, controlled, continue to monitor. Hyperlipidemia. Continue to monitor lipids Morbid obesity, BMI 38, receiving physical therapy. Electrolyte imbalance, managed by primary care physician Constipation, management by PCP Erythema to BLE, just above ankles. Continue to monitor. Clinical Quality Measures DVT/VTE Risk/Contraindication: Risk Factor Score Per Nursin RFS Level Per Nursing on Admit: 4+=Very High JOAQUIN CASTRO Jul 17, 2019 08:12
[2019-07-17] MEDS: polyethylene glycoL POWDER 17 GM (MIRALAX) PACK PO SCH ×2 (08:41→20:53)
[2019-07-17] MEDS: LOSARTAN 50 MG (COZAAR) TAB PO SCH (08:41)
[2019-07-17] MEDS: DOCUSATE SODIUM 100 MG (COLACE) CAP PO SCH ×2 (08:41→20:48)
[2019-07-17] MEDS: TRIAMCINOLONE 0.1% CR (KENALOG) 80 GM TUBE TP SCH ×2 (08:41→20:52)
[2019-07-17] MEDS: CARVEDILOL 3.125 MG (COREG) TABLET PO SCH ×2 (08:41→20:49)
[2019-07-17] MEDS: FAMOTIDINE 20 MG (PEPCID) TABLET PO SCH ×2 (08:41→20:48)
[2019-07-17] MEDS: SENNA W/DOCUSATE (SENOKOT S) TABLET PO SCH ×2 (08:41→20:49)
[2019-07-17] MEDS: LORATADINE (CLARITIN) 10 MG TAB PO SCH (08:41)
[2019-07-17] MEDS: NYSTATIN CREAM (MYCOSTATIN) 30 GM TUBE TP SCH ×2 (08:42→20:53)
[2019-07-17] MEDS: ADVAIR 250 MCG/50 MCG (NON-FORMULARY) IH SCH ×2 (09:35→19:18)
--- NOTE | 2019-07-17 09:42 | PM&R Progress Note ---
Subjective HPI/CC On Admission Date Seen by Provider: Jul 17, 2019 Time Seen by Provider: 08:45 Subjective/Events-last exam Had two BM after a fleets yesterday and feels like he needs another one today [place] will be removed per Dr. Thibodeaux and we will reach out to him today Overall a bit improved status but he just has very poor motivation chronically Conferred with RN Reviewed therapy notes Checked meds and labs Review of Systems General: Fatigue Gastrointestinal: Constipation Musculoskeletal: back pain, leg pain Objective Exam Vital Signs Vital Signs Date Time Temp Pulse Resp B/P (MAP) Pulse Ox O2 Delivery O2 Flow Rate FiO2 07/17/19 20:54 84 110/66 (81) 07/17/19 18:00 37.0 16 92 Room Air Capillary Refill : Less Than 3 SecondsLess Than 3 Seconds General Appearance: No Apparent Distress, WD/WN, Chronically ill, Obese HEENT: PERRL/EOMI, Normal ENT Inspection, Pharynx Normal Neck: Full Range of Motion, Normal Inspection, Non Tender, Supple, Carotid Bruit Respiratory: Chest Non Tender, Lungs Clear, Normal Breath Sounds, No Accessory Muscle Use, No Respiratory Distress Cardiovascular: Regular Rate, Rhythm, No Edema, No Gallop, No JVD, No Murmur, Normal Peripheral Pulses Gastrointestinal: Normal Bowel Sounds, No Organomegaly, No Pulsatile Mass, Non Tender, Soft Back: Decreased Range of Motion, Muscle Spasm, Vertebral Tenderness Extremity: Normal Capillary Refill, Normal Inspection, Normal Range of Motion, Non Tender, No Calf Tenderness, No Pedal Edema Neurologic/Psychiatric: Alert, Oriented x3, No Motor/Sensory Deficits, Normal 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 FIM Transfers Therapy Code Descriptions/Definitions Functional [place] Measure: 0=Not Assessed/NA 4=Minimal Assistance 1=Total Assistance 5=Supervision or Setup 2=Maximal Assistance 6=Modified [place] 3=Moderate Assistance 7=Complete IndependenceSCALE: Activities may be completed with or without assistive devices. 2-Axytjbpurn-izlural completes the activity by him/herself with no assistance from a helper. 5-Set-up or Clean-up Assistance-helper sets up or cleans up; patient completes activity. [place] assists only prior to or following the activity. 4-Supervision or Touching Assistance-helper provides verbal cues and/or touching/steadying and/or contact guard assistance as patient completes activity. Assistance may be provided throughout the activity or intermittently. 3-Partial/Moderate Assistance-helper does LESS THAN HALF the effort. [place] lifts, holds or supports trunk or limbs, but provides less than half the effort. 2-Substantial/Maximal Assistance-helper does MORE THAN HALF the effort. [place] lifts or holds trunk or limbs and provides more than half the effort. 1-Hvbyjzcgn-boepzp does ALL the effort. Patient does none of the effort to complete the activity. Or, the assistance of 2 or more helpers is required for the patient to complete the activity. If activity was not attempted, code reason: 7-Patient Refused. 9-Not Applicable-not attempted and the patient did not perform the activity before the current illness, exacerbation or injury. 10-Not Attempted due to Environmental Limitations-(lack of equipment, weather restraints, etc.). 88-Not Attempted due to Medical Conditions or Safety Concerns. Roll Left to Right (QC): 5 Sit to Lying (QC): 5 Sit to Stand (QC): 5 Chair/Whn-fy-Cfeet Xfer(QC): 5 Car Transfer (QC): 88 (pt unsafe to attempt this date. ) Gait Training Does the Patient Walk?: Yes Distance: 60'x4 Walk 10 feet (QC): 4 Walk 50 ft with 2 Turns(QC): 4 Walk 150 ft (QC): 88 Walking 10ft/uneven surface-QC: 88 Gait Persons Needed: 1 Gait Assistive Device: FWW Wheelchair Training Does the Pt Use a Wheelchair?: No Stair Training 1 Step (curb) (QC): 88 4 Steps (QC): 88 12 Steps (QC): 88 Balance Picking up an Object (QC): 88 (contraindicated with recent back surgery.) ADL-Treatment Eating (QC): 6 (Pt completes breakfast in chair with IND.) Oral Hygiene (QC): 5 (s/u in front of pt for denture hygiene.) Shower/Bathe Self (QC): 7 (Pt refuses sponge bath/ showering stating pain is too intense) Upper Body Dressing (QC): 7 (denies changing shirt this date.) Lower Body Dressing (QC): 4 (CGA due to pain in stance to pull up. Use of AE to don.) On/Off Footwear (QC): 7 (Pt refuses to don/ doff ) Toileting Hygiene (QC): 4 (SBA) Toilet Transfer (QC): 4 (SBA with walker.) Assessment/Plan Assessment and Plan Assess & Plan/Chief Complaint Assessment: Lumbar stenosis with radiculopathy post op with severe debility PNA acute Sepsis DIONNE on biPAP HTN CAD Plan: IRF protocol but slow process 25/12 due to PNA and severe debility BM regimen to maintain Patient refuses a lot of meds and interventions Much improved but difficult to ascertain if he can gain more in order to go home Dispo pending Fleets prn daily (1) Stenosis, spinal, lumbar (2) Coronary artery disease Status: Acute (3) Pneumonia Status: Acute (4) Lumbar radiculopathy (5) Sepsis (6) Leukocytosis (7) Non-compliance (8) Constipation (9) Hypertension (10) DIONNE treated with BiPAP (11) Lactic acid acidosis AYDE FRANCO DO Jul 17, 2019 09:42
--- NOTE | 2019-07-17 10:52 | Physical Therapy Daily Note ---
PT Daily Note-Current Subjective Patient in chair pre tx, agrees to PT, has 6/10 back pain. Appearance Patient in recliner post tx with nurse call, phone, tray, all needs met. Mental Status Patient Orientation: Normal For Age back brace Transfers SCALE: Activities may be completed with or without assistive devices. 1-Zvvkmxppbh-divafxn completes the activity by him/herself with no assistance from a helper. 5-Set-up or Clean-up Assistance-helper sets up or cleans up; patient completes activity. [place] assists only prior to or following the activity. 4-Supervision or Touching Assistance-helper provides verbal cues and/or touching/steadying and/or contact guard assistance as patient completes activity. Assistance may be provided throughout the activity or intermittently. 3-Partial/Moderate Assistance-helper does LESS THAN HALF the effort. [place] lifts, holds or supports trunk or limbs, but provides less than half the effort. 2-Substantial/Maximal Assistance-helper does MORE THAN HALF the effort. [place] l ifts or holds trunk or limbs and provides more than half the effort. 7-Wvmedohko-hxvjir does ALL the effort. Patient does none of the effort to complete the activity. Or, the assistance of 2 or more helpers is required for the patient to complete the activity. If activity was not attempted, code reason: 7-Patient Refused. 9-Not Applicable-not attempted and the patient did not perform the activity before the current illness, exacerbation or injury. 10-Not Attempted due to Environmental Limitations-(lack of equipment, weather restraints, etc.). 88-Not Attempted due to Medical Conditions or Safety Concerns. Sit to Stand (QC): 6 Chair/Ukm-ni-Oerhh Xfer(QC): 6 Good use of hands on armrests for safety Weight Bearing Right Lower Extremity: Right Full Weight Bearing Left Lower Extremity: Left Full Weight Bearing Gait Training Distance: 60'x4 Walk 10 feet (QC): 6 Gait Assistive Device: FWW Slow, antalgic, but steady, has to stop and rest due to pain and fatigue Exercises Seated Therapy Exercises: Ankle pumps, Hip flexion, Hip abd/add (with RTB and ball) Seated Reps: 20 Standing: Hip Abduction, Heel/toe raises, Marching, Mini squats Standing Reps: 15 LAQ alternating for 5 min Treatments transfers, ambulation, LE strengthening Assessment Current Status: Fair Progress good safety with transfers today PT Short Term Goals Short Term Goals Time Frame: Jul 12, 2019 Sit to lyin Lying to sitting on side of be: 4 Sit to stand: 5 Chair/rnk-jq-vohuj transfer: 5 Walk 150 feet: 4 1 step (curb): 4 PT Conversion Developer Goals Care Home Goals PT Care Home Goals Time Frame: Jul 20, 2019 Roll Left & Right (QC): 6 Sit to Lying (QC): 6 Lying-Sitting on Side/Bed(QC): 6 Sit to Stand (QC): 6 Chair/Raw-ls-Odmlq Xfer(QC): 6 Toilet Transfer (QC): 6 Car Transfer (QC): 5 Does the Patient Walk: Yes Walk 10 feet (QC): 6 Walk 50ft with 2 Turns (QC): 6 Walk 150 ft (QC): 6 Walking 10ft on Uneven Surface: 6 1 Step (curb) (QC): 6 4 Steps (QC): 6 12 Steps (QC): 9 Picking up an Object (QC): 88 Does the Pt use WC or Scooter?: No PT Plan Problem List Problem List: Activity Tolerance, Functional Strength, Safety, Balance, Gait, Transfer, Bed Mobility, ROM Treatment/Plan Treatment Plan: Continue Plan of Care Treatment Plan: Bed Mobility, Education, Functional Activity Melissa, Functional Strength, Group Therapy, Gait, Safety, Therapeutic Exercise, Transfers Treatment Duration: Jul 20, 2019 Frequency: Modified Program (IRF) (15/7 per physician) Estimated Hrs Per Day: 1.5 hours per day (1 to 1.5) Patient and/or Family Agrees t: Yes Safety Risks/Education Patient Education: Gait Training, Transfer Techniques, Correct Positioning, Reviewed Don/Doff Brace, Safety Issues Teaching Recipient: Patient Teaching Methods: Demonstration, Discussion Response to Teaching: Reinforcement Needed Time/GCodes Time In: 1000 Time Out: 1100 Total Billed Treatment Time: 60 Total Billed Treatment 1 visit GT 30' EX 30' RHONDA STEPHENS PT Jul 17, 2019 10:52
--- NOTE | 2019-07-17 11:11 | Occupational Ther Daily Note ---
OT Current Status-Daily Note Subjective Pt seen in bed, pt agrees to OT session, states slept well on and off through night. Pt expresses 5/10 pain in back, states an additional BM yesterday post-OT session. States he does not want enema this morning due to therapy, but states he desires one this afternoon. Mental Status/Objective Patient Orientation: Normal For Age ADL-Treatment Therapy Code Descriptions/Definitions Functional [place] Measure: 0=Not Assessed/NA 4=Minimal Assistance 1=Total Assistance 5=Supervision or Setup 2=Maximal Assistance 6=Modified [place] 3=Moderate Assistance 7=Complete IndependenceSCALE: Activities may be completed with or without assistive devices. 2-Lsegdiqvdd-trwbpma completes the activity by him/herself with no assistance from a helper. 5-Set-up or Clean-up Assistance-helper sets up or cleans up; patient completes activity. [place] assists only prior to or following the activity. 4-Supervision or Touching Assistance-helper provides verbal cues and/or touching/steadying and/or contact guard assistance as patient completes activity. Assistance may be provided throughout the activity or intermittently. 3-Partial/Moderate Assistance-helper does LESS THAN HALF the effort. [place] lifts, holds or supports trunk or limbs, but provides less than half the effort. 2-Substantial/Maximal Assistance-helper does MORE THAN HALF the effort. [place] lifts or holds trunk or limbs and provides more than half the effort. 4-Cpwpysvzc-wmlgux does ALL the effort. Patient does none of the effort to complete the activity. Or, the assistance of 2 or more helpers is required for the patient to complete the activity. If activity was not attempted, code reason: 7-Patient Refused. 9-Not Applicable-not attempted and the patient did not perform the activity before the current illness, exacerbation or injury. 10-Not Attempted due to Environmental Limitations-(lack of equipment, weather restraints, etc.). 88-Not Attempted due to Medical Conditions or Safety Concerns. Eating (QC): 6 Oral Hygiene (QC): 5 (s/u oral hygiene.) Shower/Bathe Self (QC): 4 (SUP) Upper Body Dressing (QC): 3 (s/u shirt donningmin A for back brace, able to attach with increased ease on this date.) Lower Body Dressing (QC): 4 (SUP during stance) On/Off Footwear: 6 (sock aide utilized.) Toileting Hygiene (QC): 4 (SUP in stance) Toilet Transfer (QC): 6 (IND with use of walker.) Other Treatment Pt bed mob with increased time, SUP. Pt completes sponge bath/ oral hygiene/ dressing in chair with use of AE. Pt's LE's continue to have reddish rash, nursing already notified. Pt gathers clothing items for laundry routine with SUP. Pt denies need for walker basket as OT/ pt discuss, states he doesn't have a need for it. Different situations presented to pt, pt continues to deny need for walker basket. Pt ambulates to therapy gym with walker, requires one rest break. Pt sits EOM once in gym, stands to complete UE exercises/ balancing while in stance at walker level. Pt retrieves resistance clothes pins from yoan, places on clothing. Pt states decreased strength in LUE than RUE. Pt's recreation instructor strength taken: similar measures bilaterally. Pt continues gathering items from clothing to return to rods, challenges balance by removing BUE from walker and reaching in different planes. Maintains balance throughout. Pt denies increased pain, returns to room. Pt left in recliner with all needs met, call light in reach. Education OT Patient Education: Correct positioning, Exercise program, Home exercise program, Modified ADL techniques, Use of adapted equipment Teaching Recipient: Patient Teaching Methods: Demonstration, Discussion Response to Teaching: Verbalize Understanding, Return Demonstration OT Short Term Goals Short Term Goals Time Frame: Jul 12, 2019 Eatin (met) Oral hygiene: 6 (met) Toileting hygiene: 3 (met) Shower/bathe self: 3 (met) Upper body dressin (met) Lower body dressin (met) Putting on/taking off footwear: 3 (met) OT Skilled Nursing Goals Skilled Nursing Goals Time Frame: Jul 19, 2019 Eating (QC): 6 (met) Oral Hygiene (QC): 6 (met) Toileting Hygiene (QC): 6 Shower/Bathe Self (QC): 6 Upper Body Dressing (QC): 6 Lower Body Dressing (QC): 6 On/Off Footwear (QC): 6 (met) Additional Goals: 1-Demonstrate ADL Tasks, 2-Verbalize Understanding, 3- ImproveStrength/Melissa 1=Demonstrate adherence to instructed precautions during ADL tasks. 2=Patient will verbalize/demonstrate understanding of assistive devices/modifications for ADL. 3=Patient will improve strength/tolerance for activity to enable patient to perform ADL's. OT Education/Plan Problem List/Assessment Assessment: Decreased Activ Tolerance, Edema, Impaired I ADL's, Impaired Self- Care Skills Discharge Recommendations Plan/Recommendations: Continue POC Therapy Discharge Recommendati: Home & Family Treatment Plan/Plan of Care Treatment,Training & Education: Yes Patient would benefit from OT for education, treatment and training to promote independence in ADL's, mobility, safety and/or upper extremity function for ADL's. Plan of Care: ADL Retraining, Caregiver Training, Concurrent Therapy, Functional Mobility, Group Exercise/Act as Ind, Orthotic Fitting/Training, UE Funct Exercise/Act Treatment Duration: Jul 19, 2019 Frequency: At least 5 of 7 days/Wk (IRF) Estimated Hrs Per Day: 1.5 hours per day Agreement: Yes Rehab Potential: Good Time/GCodes Start Time: 08:00 Stop Time: 09:30 Total Time Billed (hr/min): 90 Billed Treatment Time 1, ADL 4, EX 2 (90) YASIR VALLADARES OTR Jul 17, 2019 11:11
--- NOTE | 2019-07-17 14:24 | Physical Therapy Daily Note ---
PT Daily Note-Current Subjective Patient in recliner pre tx, agrees to PT, has 5/10 pain in back but states his pain is a little more. Patient agrees to try for extra time today to help make up for time missed yesterday due to patient refusing physical therapy. Appearance Patient in recliner post tx with nurse call, phone, tray, all needs met. Mental Status Patient Orientation: Person, Place, Situation, Normal For Age back brace Transfers SCALE: Activities may be completed with or without assistive devices. 1-Ewefroojcx-qqyapzw completes the activity by him/herself with no assistance from a helper. 5-Set-up or Clean-up Assistance-helper sets up or cleans up; patient completes activity. [place] assists only prior to or following the activity. 4-Supervision or Touching Assistance-helper provides verbal cues and/or touching/steadying and/or contact guard assistance as patient completes activity. Assistance may be provided throughout the activity or intermittently. 3-Partial/Moderate Assistance-helper does LESS THAN HALF the effort. [place] lifts, holds or supports trunk or limbs, but provides less than half the effort. 2-Substantial/Maximal Assistance-helper does MORE THAN HALF the effort. [place] lifts or holds trunk or limbs and provides more than half the effort. 9-Xiyzofgnt-rdwmcy does ALL the effort. Patient does none of the effort to complete the activity. Or, the assistance of 2 or more helpers is required for the patient to complete the activity. If activity was not attempted, code reason: 7-Patient Refused. 9-Not Applicable-not attempted and the patient did not perform the activity before the current illness, exacerbation or injury. 10-Not Attempted due to Environmental Limitations-(lack of equipment, weather restraints, etc.). 88-Not Attempted due to Medical Conditions or Safety Concerns. Sit to Stand (QC): 6 Chair/Lwb-yr-Ujcnt Xfer(QC): 6 Very good transfers and sit to stand, good use of hand placement and safety using armrests. Weight Bearing Right Lower Extremity: Right Full Weight Bearing Left Lower Extremity: Left Full Weight Bearing Gait Training Distance: 60'x6 Walk 10 feet (QC): 4 Walk 50 ft with 2 Turns(QC): 4 Gait Assistive Device: FWW Slow, antalgic ambulation, better step through, less shuffling. Patient has increased pain and fatigue with ambulation, needs significant rest breaks betwee n trips. Treatments ambulation, transfers Assessment Current Status: Fair Progress improving safety and transfers. PT Short Term Goals Short Term Goals Time Frame: Jul 12, 2019 Sit to lyin Lying to sitting on side of be: 4 Sit to stand: 5 Chair/qgd-ca-qrudq transfer: 5 Walk 150 feet: 4 1 step (curb): 4 PT Wallet Assembler Goals Alf Goals PT Alf Goals Time Frame: Jul 20, 2019 Roll Left & Right (QC): 6 Sit to Lying (QC): 6 Lying-Sitting on Side/Bed(QC): 6 Sit to Stand (QC): 6 Chair/Vwq-ga-Pgjfy Xfer(QC): 6 Toilet Transfer (QC): 6 Car Transfer (QC): 5 Does the Patient Walk: Yes Walk 10 feet (QC): 6 Walk 50ft with 2 Turns (QC): 6 Walk 150 ft (QC): 6 Walking 10ft on Uneven Surface: 6 1 Step (curb) (QC): 6 4 Steps (QC): 6 12 Steps (QC): 9 Picking up an Object (QC): 88 Does the Pt use WC or Scooter?: No PT Plan Problem List Problem List: Activity Tolerance, Functional Strength, Safety, Balance, Gait, Transfer, Bed Mobility, ROM Treatment/Plan Treatment Plan: Continue Plan of Care Treatment Plan: Bed Mobility, Education, Functional Activity Melissa, Functional Strength, Group Therapy, Gait, Safety, Therapeutic Exercise, Transfers Treatment Duration: Jul 20, 2019 Frequency: Modified Program (IRF) (15/ per physician) Estimated Hrs Per Day: 1.5 hours per day (1 to 1.5) Patient and/or Family Agrees t: Yes Safety Risks/Education Patient Education: Gait Training, Transfer Techniques, Correct Positioning, Reviewed Don/Doff Brace, Safety Issues Teaching Recipient: Patient Teaching Methods: Demonstration, Discussion Response to Teaching: Reinforcement Needed Time/GCodes Time In: 1330 Time Out: 1430 Total Billed Treatment Time: 60 Total Billed Treatment 1 visit GT 60' RHONDA STEPHENS PT Jul 17, 2019 14:24
[2019-07-17] MEDS: FLEET ENEMA ADULT 1 EA BTL PR PRN (15:38)
[2019-07-17 18:00] VITALS: BP 109/63
[2019-07-17] MEDS: MONTELUKAST 10 MG (SINGULAIR) TAB PO SCH (20:49)
[2019-07-17] MEDS: CYCLOBENZAPRINE 10 MG (FLEXERIL) TAB PO PRN (20:49)
[2019-07-17 20:54] VITALS: BP 110/66
[2019-07-18] MEDS: NYSTATIN ORAL SUSP 5 ML UDC PO SCH ×4 (02:23→20:12)
[2019-07-18] MEDS: HYDROcodone/APAP 5 MG/325 MG (LORTAB) TAB PO PRN ×5 (02:48→22:39)
[2019-07-18 06:01] VITALS: BP 118/66
[2019-07-18] MEDS: KCL 10 MEQ TAB (MICRO K) PO SCH ×2 (06:54→17:30)
[2019-07-18] MEDS: MULTIVIT W/MINERALS TAB (THERAGRAN M) PO SCH (06:54)
[2019-07-18] MEDS: FUROSEMIDE 20 MG (LASIX) TAB PO SCH ×2 (06:55→17:30)
[2019-07-18] MEDS: polyethylene glycoL POWDER 17 GM (MIRALAX) PACK PO SCH ×2 (08:20→21:27)
[2019-07-18] MEDS: CARVEDILOL 3.125 MG (COREG) TABLET PO SCH ×2 (08:20→20:12)
[2019-07-18] MEDS: LACTULOSE SYRUP 10GM/15ML (ENULOSE) 30ML UDC PO PRN (08:20)
[2019-07-18] MEDS: LORATADINE (CLARITIN) 10 MG TAB PO SCH (08:20)
[2019-07-18] MEDS: SENNA W/DOCUSATE (SENOKOT S) TABLET PO SCH ×2 (08:20→20:12)
[2019-07-18] MEDS: LOSARTAN 50 MG (COZAAR) TAB PO SCH (08:20)
--- NOTE | 2019-07-18 08:51 | Cardiology Progress Note ---
Subjective Date Seen by Provider: Jul 18, 2019 Time Seen by Provider: 08:49 Subjective/Events-last exam Patient up in room, continues to c/o mild back pain. Denies any chest pain or abdominal pain. Review of Systems General: No Chills, No Night Sweats; Fatigue, Malaise; No Appetite, No Other HEENT: No Head Aches, No Visual Changes, No Eye Pain, No Ear Pain, No Dysphasia, No Sinus Congestion, No Post Nasal Drip, No Sore Throat, No Other Pulmonary: No Dyspnea, No Cough, No Pleuritic Chest Pain, No Other Cardiovascular: No: Chest Pain, Palpitations, Orthopnea, Paroxysmal Noc. Dyspnea, Edema, Lt Headedness, Other Objective-Cardiology Exam Last Set of Vital Signs Vital Signs 07/18/19 07/18/19 06:01 09:28 Temp 36.0 Pulse 73 Resp 18 B/P (MAP) 118/66 (83) Pulse Ox 94 O2 Delivery Room Air Capillary Refill : Less Than 3 SecondsGreater Than 3 Seconds I&O Intake and Output 07/18/19 00:00 Intake Total 1050 ml Balance 1050 ml Intake Oral 1050 ml # Voids 5 General: Alert, Oriented X3, Cooperative HEENT: Atraumatic, PERRLA Neck: Supple, No JVD, No Thyromegaly Lungs: Clear to Auscultation, Normal Air Movement Heart: Regular Rate, Normal S1, Normal S2, No Murmurs Abdomen: No Tenderness, No Hepatosplenomegaly Extremities: No Clubbing, Other (+1-2 edema BLE) Skin: No Significant Lesion, Other (erythema to BLE) Neuro: Normal Speech, Cranial Nerves 3-12 NL Psych/Mental Status: Mental Status NL, Mood NL A/P-Cardiology Admission Diagnosis Coronary artery disease Debility COPD Hypertension Assessment/Plan Spinal stenosis, had recent surgery, recovering slowly, generalized weakness and debility,complaining of some back pain, receiving physical therapy. COPD, obstructive sleep apnea, shortness of breath on exertion. s/p pneumonia. Coronary artery disease, history of multiple intervention in the past, had a s tress test done in May 2019 showing no ischemia or infarction. Normal EF. Continue to monitor Peripheral edema, started on Lasix, continue to monitor Hypertension, controlled, continue to monitor. Hyperlipidemia. Continue to monitor lipids Morbid obesity, BMI 38, receiving physical therapy. Constipation,resolved, management by PCP Erythema to BLE, just above ankles. Continue to monitor. Patient started on antifungal medication. Patient was seen and evaluated with Yoon, examination performed, management plan was discussed, agree with the current scribed note, I made few changes to the note using Italic font Patient is laying down in bed, feeling better, reporting improvement in the erythema Still having peripheral edema, continue on diuretics Continue to monitor Clinical Quality Measures DVT/VTE Risk/Contraindication: Risk Factor Score Per Nursin RFS Level Per Nursing on Admit: 4+=Very High YOON CASTRO Jul 18, 2019 08:51 ADRYAN NAVARRO MD Jul 18, 2019 16:18
[2019-07-18] MEDS: FAMOTIDINE 20 MG (PEPCID) TABLET PO SCH ×2 (09:00→18:45)
[2019-07-18] MEDS: ALBUTEROL IH PRN (09:27)
[2019-07-18] MEDS: ADVAIR 250 MCG/50 MCG (NON-FORMULARY) IH SCH ×2 (09:27→19:59)
--- NOTE | 2019-07-18 09:27 | Occupational Ther Daily Note ---
OT Current Status-Daily Note Subjective Pt seen in bed, hesitantly agreeable to OT tx session. Pt states he has immense pain (states 5/10), states he believes he is ready to return home. Pt agreeable to sponge bath/ practicing home set-up. Pt states he doesn't believe he will make more progress in ARU due to pain, inability to sleep, and being pushed when he's in pain. Mental Status/Objective Patient Orientation: Normal For Age ADL-Treatment Therapy Code Descriptions/Definitions Functional [place] Measure: 0=Not Assessed/NA 4=Minimal Assistance 1=Total Assistance 5=Supervision or Setup 2=Maximal Assistance 6=Modified [place] 3=Moderate Assistance 7=Complete IndependenceSCALE: Activities may be completed with or without assistive devices. 5-Ajjneeyxhs-oegrlub completes the activity by him/herself with no assistance from a helper. 5-Set-up or Clean-up Assistance-helper sets up or cleans up; patient completes activity. [place] assists only prior to or following the activity. 4-Supervision or Touching Assistance-helper provides verbal cues and/or touching/steadying and/or contact guard assistance as patient completes activity. Assistance may be provided throughout the activity or intermittently. 3-Partial/Moderate Assistance-helper does LESS THAN HALF the effort. [place] lifts, holds or supports trunk or limbs, but provides less than half the effort. 2-Substantial/Maximal Assistance-helper does MORE THAN HALF the effort. [place] lifts or holds trunk or limbs and provides more than half the effort. 2-Xsxlpnwef-xzrmad does ALL the effort. Patient does none of the effort to complete the activity. Or, the assistance of 2 or more helpers is required for the patient to complete the activity. If activity was not attempted, code reason: 7-Patient Refused. 9-Not Applicable-not attempted and the patient did not perform the activity before the current illness, exacerbation or injury. 10-Not Attempted due to Environmental Limitations-(lack of equipment, weather restraints, etc.). 88-Not Attempted due to Medical Conditions or Safety Concerns. Eating (QC): 6 Oral Hygiene (QC): 6 (completes in chair in front of sink.) Shower/Bathe Self (QC): 6 (Pt sets up own sponge bath. Gathers all AE for dressing/ soap/ towels, etc. Pt agrees to place chair in front of sink at home for sponge bath as he doesn't plan to shower. Pt states he could bathe on toilet as sink next to toilet, pt educated on precautions/ no twisting. Pt agrees that chair would be best option.) Upper Body Dressing (QC): 4 (Cues for back brace.) Lower Body Dressing (QC): 6 (Completes in chair in front of sink with AE. ) On/Off Footwear: 6 (completes with sock aide.) Toileting Hygiene (QC): 6 (IND during stance during bath) Toilet Transfer (QC): 6 (use of walker.) Other Treatment Pt requires increased time for all activities this morning. Hesitantly agreeable. When agrees to sponge bath, states he wants to "doze for a few minutes." OT states it will take one min and he could sit up in bed. Pt completes bed mob with IND, up EOB when OT returns. Pt states his pain is 5/10 and would like to wait for sponge bath, desires to take pills first. Pt's nurse notified of pain. Pt agrees to walk to toilet/ bathroom before pills. Completes urination. Pt completes bed mob/ toileting with increased time (25 min time frame to motivate pt to get from bed to in front of sink for bathing). Pt practices gathering all materials, min cues for remembering all items. Pt completes all ADLs with IND (mod I) on this date (excluding UB dressing due to back brace). During pant donning states "I would reach down and get them but you're here," pt educated that precautions are to protect him and would benefit in long run to maintain. Pt and OT discuss home environment and pt agrees he will be successful and he is ready. pt and OT discuss edema management techniques, pt states uncomfort with elevating legs but agrees end of session. Pt sits in recliner to practice donning back brace, completes with min A for cues. Pt ambulates ~50 feet to chair, requires 5 min rest and ambulates back to room. Returns to recliner chair, all needs met, call light in reach. Education OT Patient Education: Correct positioning, Energy conservation, Modified ADL techniques, Progress toward Goal/Update tx plan, Purpose of tx/functional activities, Reviewed precautions, Rehab process, Safety issues Teaching Recipient: Patient Teaching Methods: Demonstration, Discussion Response to Teaching: Verbalize Understanding, Return Demonstration OT Short Term Goals Short Term Goals Time Frame: Jul 12, 2019 Eatin (met) Oral hygiene: 6 (met) Toileting hygiene: 3 (met) Shower/bathe self: 3 (met) Upper body dressin (met) Lower body dressin (met) Putting on/taking off footwear: 3 (met) OT Algebraist Goals Usp Goals Time Frame: Jul 19, 2019 Eating (QC): 6 (met) Oral Hygiene (QC): 6 (met) Toileting Hygiene (QC): 6 Shower/Bathe Self (QC): 6 Upper Body Dressing (QC): 6 Lower Body Dressing (QC): 6 On/Off Footwear (QC): 6 (met) Additional Goals: 1-Demonstrate ADL Tasks, 2-Verbalize Understanding, 3-ImproveStrength/Melissa 1=Demonstrate adherence to instructed precautions during ADL tasks. 2=Patient will verbalize/demonstrate understanding of assistive devices/modifications for ADL. 3=Patient will improve strength/tolerance for activity to enable patient to perform ADL's. OT Education/Plan Problem List/Assessment Assessment: Decreased Activ Tolerance, Edema, Impaired I ADL's Discharge Recommendations Plan/Recommendations: Continue POC Therapy Discharge Recommendati: Home & Family Equpiment Recommendations-D/C: Hip Kit Treatment Plan/Plan of Care Treatment,Training & Education: Yes Patient would benefit from OT for education, treatment and training to promote independence in ADL's, mobility, safety and/or upper extremity function for ADL's. Plan of Care: ADL Retraining, Caregiver Training, Concurrent Therapy, Functional Mobility, Group Exercise/Act as Ind, Orthotic Fitting/Training, UE Funct Exercise/Act Treatment Duration: Jul 19, 2019 Frequency: At least 5 of 7 days/Wk (IRF) Estimated Hrs Per Day: 1.5 hours per day Agreement: Yes Rehab Potential: Good Time/GCodes Start Time: 08:00 Stop Time: 09:30 Total Time Billed (hr/min): 90 Billed Treatment Time 1, ADL 5, EX (90) YASIR VALLADARES OTR Jul 18, 2019 09:27
--- NOTE | 2019-07-18 09:50 | PM&R Progress Note ---
Subjective HPI/CC On Admission Date Seen by Provider: Jul 18, 2019 Time Seen by Provider: 09:30 Subjective/Events-last exam Overall Pt appears to be doing pretty well. His baseline activity was not very mobile anyway. Likely will discharge on home health with close follow-up to get back to Pt's baseline that is nearly attained now. Overall his attitude is generally on the negative side, but tried to reassure him. Conferred with RN Reviewed therapy notes Checked meds and labs Review of Systems General: Fatigue Pulmonary: Dyspnea Musculoskeletal: back pain, leg pain Objective Exam Vital Signs Vital Signs Date Time Temp Pulse Resp B/P (MAP) Pulse Ox O2 Delivery O2 Flow Rate FiO2 07/18/19 18:03 36.2 72 12 117/71 (86) 93 Room Air Capillary Refill : Less Than 3 SecondsLess Than 3 Seconds General Appearance: No Apparent Distress, WD/WN, Chronically ill, Obese HEENT: PERRL/EOMI, Normal ENT Inspection, Pharynx Normal Neck: Full Range of Motion, Normal Inspection, Non Tender, Supple, Carotid Bruit Respiratory: Chest Non Tender, Lungs Clear, Normal Breath Sounds, No Accessory Muscle Use, No Respiratory Distress Cardiovascular: Regular Rate, Rhythm, No Edema, No Gallop, No JVD, No Murmur, Normal Peripheral Pulses Gastrointestinal: Normal Bowel Sounds, No Organomegaly, No Pulsatile Mass, Non Tender, Soft Back: Decreased Range of Motion, Muscle Spasm, Vertebral Tenderness Extremity: Normal Capillary Refill, Normal Inspection, Normal Range of Motion, Non Tender, No Calf Tenderness, No Pedal Edema Neurologic/Psychiatric: Alert, Oriented x3, No Motor/Sensory Deficits, Normal Mood/Affect, scientologist II-XII Norm as Tested, Motor Weakness (lower legs) Skin: Normal Color, Warm/Dry Lymphatic: No Adenopathy Results/Procedures Lab Patient resulted labs reviewed. FIM Transfers Therapy Code Descriptions/Definitions Functional [place] Measure: 0=Not Assessed/NA 4=Minimal Assistance 1=Total Assistance 5=Supervision or Setup 2=Maximal Assistance 6=Modified [place] 3=Moderate Assistance 7=Complete IndependenceSCALE: Activities may be completed with or without assistive devices. 2-Fxdusatbrb-dhaiyff completes the activity by him/herself with no assistance from a helper. 5-Set-up or Clean-up Assistance-helper sets up or cleans up; patient completes activity. [place] assists only prior to or following the activity. 4-Supervision or Touching Assistance-helper provides verbal cues and/or touching/steadying and/or contact guard assistance as patient completes activity. Assistance may be provided throughout the activity or intermittently. 3-Partial/Moderate Assistance-helper does LESS THAN HALF the effort. [place] lifts, holds or supports trunk or limbs, but provides less than half the effort. 2-Substantial/Maximal Assistance-helper does MORE THAN HALF the effort. [place] lifts or holds trunk or limbs and provides more than half the effort. 8-Anjidmivv-drsgwf does ALL the effort. Patient does none of the effort to com plete the activity. Or, the assistance of 2 or more helpers is required for the patient to complete the activity. If activity was not attempted, code reason: 7-Patient Refused. 9-Not Applicable-not attempted and the patient did not perform the activity before the current illness, exacerbation or injury. 10-Not Attempted due to Environmental Limitations-(lack of equipment, weather restraints, etc.). 88-Not Attempted due to Medical Conditions or Safety Concerns. Roll Left to Right (QC): 5 Sit to Lying (QC): 5 Sit to Stand (QC): 6 Chair/Fbi-fm-Glrbh Xfer(QC): 6 Car Transfer (QC): 88 (pt unsafe to attempt this date. ) Gait Training Does the Patient Walk?: Yes Distance: 60'x6 Walk 10 feet (QC): 4 Walk 50 ft with 2 Turns(QC): 4 Walk 150 ft (QC): 88 Walking 10ft/uneven surface-QC: 88 Gait Persons Needed: 1 Gait Assistive Device: FWW Wheelchair Training Does the Pt Use a Wheelchair?: No Stair Training 1 Step (curb) (QC): 88 4 Steps (QC): 88 12 Steps (QC): 88 Balance Picking up an Object (QC): 88 (contraindicated with recent back surgery.) ADL-Treatment Eating (QC): 6 Oral Hygiene (QC): 6 (completes in chair in front of sink.) Shower/Bathe Self (QC): 6 (Pt sets up own sponge bath. Gathers all AE for dressing/ soap/ towels, etc. Pt agrees to place chair in front of sink at home for sponge bath as he doesn't plan to shower. Pt states he could bathe on toilet as sink next to toilet, pt educated on precautions/ no twisting. Pt agrees that chair would be best option.) Upper Body Dressing (QC): 4 (Cues for back brace.) Lower Body Dressing (QC): 6 (Completes in chair in front of sink with AE. ) On/Off Footwear (QC): 6 (completes with sock aide.) Toileting Hygiene (QC): 6 (IND during stance during bath) Toilet Transfer (QC): 6 (use of walker.) Assessment/Plan Assessment and Plan Assess & Plan/Chief Complaint Assessment: Lumbar stenosis with radiculopathy post op with severe debility PNA acute Sepsis DIONNE on biPAP HTN CAD Plan: IRF protocol but slow process 25/12 due to PNA and severe debility BM regimen to maintain Patient refuses a lot of meds and interventions Much improved but difficult to ascertain if he can gain more in order to go home Dispo home on Sat Fleets prn daily (1) Stenosis, spinal, lumbar (2) Coronary artery disease Status: Acute (3) Pneumonia Status: Acute (4) Lumbar radiculopathy (5) Sepsis (6) Leukocytosis (7) Non-compliance (8) Constipation (9) Hypertension (10) DIONNE treated with BiPAP (11) Lactic acid acidosis AYDE FRANCO DO Jul 18, 2019 09:50
[2019-07-18] MEDS: NYSTATIN CREAM (MYCOSTATIN) 30 GM TUBE TP SCH ×2 (10:00→20:18)
[2019-07-18] MEDS: TRIAMCINOLONE 0.1% CR (KENALOG) 80 GM TUBE TP SCH ×2 (10:00→20:18)
[2019-07-18] MEDS: DOCUSATE SODIUM 100 MG (COLACE) CAP PO SCH ×2 (10:06→20:12)
[2019-07-18] MEDS: CYCLOBENZAPRINE 10 MG (FLEXERIL) TAB PO PRN ×2 (10:08→20:12)
--- NOTE | 2019-07-18 10:30 | Physical Therapy Daily Note ---
PT Daily Note-Current Subjective Pt agreeable to Pt sessions, although stating he did not sleep well at all last night. Pt req and bridget'randell from nursing, mm relaxer during am session and pain med during pm session with pain level reported at 7-8/10 Pain Numeric Pain Scale: 6 Location: Posterior Location Body Site: Back Comment: rosa isela pain meds ~8:20am, req from nsg, bridget'randell mm relaxer(?) at beginning tx Appearance AM: pt sitting up in recliner with nurse present upon arrival. During session, pt requested and assisted to restroom. At end of session, pt sitting up in recliner with call light, phone and bedside table within reach. PM: Pt in bed upon arrival, req and assisted to restroom, at end of session pt sitting up in recliner with call light, phone and bedside table within reach. Mental Status Patient Orientation: Person, Place, Time, Eyes Open, Situation Attachments: Other-See Comments (back support brace) Transfers SCALE: Activities may be completed with or without assistive devices. 1-Kzwredysqx-pkholrr completes the activity by him/herself with no assistance from a helper. 5-Set-up or Clean-up Assistance-helper sets up or cleans up; patient completes activity. [place] assists only prior to or following the activity. 4-Supervision or Touching Assistance-helper provides verbal cues and/or touching/steadying and/or contact guard assistance as patient completes activity. Assistance may be provided throughout the activity or intermittently. 3-Partial/Moderate Assistance-helper does LESS THAN HALF the effort. [place] lifts, holds or supports trunk or limbs, but provides less than half the effort. 2-Substantial/Maximal Assistance-helper does MORE THAN HALF the effort. [place] lifts or holds trunk or limbs and provides more than half the effort. 7-Sevyfbxxf-hjnjmy does ALL the effort. Patient does none of the effort to complete the activity. Or, the assistance of 2 or more helpers is required for the patient to complete the activity. If activity was not attempted, code reason: 7-Patient Refused. 9-Not Applicable-not attempted and the patient did not perform the activity before the current illness, exacerbation or injury. 10-Not Attempted due to Environmental Limitations-(lack of equipment, weather restraints, etc.). 88-Not Attempted due to Medical Conditions or Safety Concerns. Sit to Lying (QC): 4 Lying to Sitting/Side of Bed(Q: 3 Sit to Stand (QC): 4 Toilet Transfer (QC): 4 (slow and guarded, use of handrails) skilled inst required for correct log roll technique in/out of bed and for hand placement during sit/stand transfers Weight Bearing Right Lower Extremity: Right Full Weight Bearing Left Lower Extremity: Left Full Weight Bearing Gait Training Does the Patient Walk?: Yes Distance: am: 100 x3, PM: 120, 50, 50, 120 Walk 10 feet (QC): 4 Walk 50 ft with 2 Turns(QC): 4 Gait Persons Needed: 1 Gait Assistive Device: FWW slow shuffling gait, decreased step height and length, fatigues easily requiring rest breaks, able to improve posture and distance from walker with instruction Exercises Supine Ex: Quad Set (20), Heel Slides (10), Short Arc Quads (20), Hip abd/add (20) Seated Therapy Exercises: Ankle pumps (20), Sit to stand, Long arc quads (20, alt LE's), Hip flexion (20, increased back pain), Hip abd/add (20, knees extended and simultaneously) NuStep Minutes: 20 NuStep Workload: 4 (very slow small movements) Treatments education, safety, transfers, gait, activity tolerance, strength, balance, functional mobility, bed mobility Assessment Current Status: Fair Progress able to achieve extra minutes today due to missed minutes earlier in the week due to illness, but unable to tolerate any more than 30 additional minutes (180 min total) today PT Short Term Goals Short Term Goals Time Frame: Jul 12, 2019 Sit to lyin Lying to sitting on side of be: 4 Sit to stand: 5 Chair/dhp-re-pezib transfer: 5 Walk 150 feet: 4 1 step (curb): 4 PT [facility] Goals Gravel Inspector Goals PT Gravel Inspector Goals Time Frame: Jul 20, 2019 Roll Left & Right (QC): 6 Sit to Lying (QC): 6 Lying-Sitting on Side/Bed(QC): 6 Sit to Stand (QC): 6 Chair/Lcx-ct-Pmxer Xfer(QC): 6 Toilet Transfer (QC): 6 Car Transfer (QC): 5 Does the Patient Walk: Yes Walk 10 feet (QC): 6 Walk 50ft with 2 Turns (QC): 6 Walk 150 ft (QC): 6 Walking 10ft on Uneven Surface: 6 1 Step (curb) (QC): 6 4 Steps (QC): 6 12 Steps (QC): 9 Picking up an Object (QC): 88 Does the Pt use WC or Scooter?: No PT Plan Treatment/Plan Treatment Plan: Continue Plan of Care Treatment Plan: Bed Mobility, Education, Functional Activity Melissa, Functional Strength, Group Therapy, Gait, Safety, Therapeutic Exercise, Transfers Treatment Duration: Jul 20, 2019 Frequency: Modified Program (IRF) (25/12 per physician) Estimated Hrs Per Day: 1.5 hours per day (1 to 1.5) Patient and/or Family Agrees t: Yes Safety Risks/Education Patient Education: Gait Training, Transfer Techniques, Reviewed Precautions, Reviewed Don/Doff Brace, Safety Issues Teaching Recipient: Patient Teaching Methods: Demonstration, Discussion Response to Teaching: Verbalize Understanding, Return Demonstration, Reinfor cement Needed Time/GCodes Time In: 1000 (pm 1300) Time Out: 1100 (pm 1400) Total Billed Treatment Time: 60 (pm 60) Total Billed Treatment am 1 visit, GT x30 min, EX x20 min, FA x10 min. PM 1 visit, GT x25 min, EX x20 min, FA x15 min JASMYNE RUIZ PTA Jul 18, 2019 10:30
--- NOTE | 2019-07-18 11:30 | Pulmonary Progress Note ---
Subjective Time Seen by a Provider: 11:30 Subjective/Events-last exam complains of back pain Sepsis Event Evaluation Height, Weight, BMI Height: 5'10.00" Weight: 237lbs. 0.0oz. [id number]; 37.98 BMI Method:Stated Exam Exam Vital Signs Date Time Temp Pulse Resp B/P (MAP) Pulse Ox O2 Delivery O2 Flow Rate FiO2 07/18/19 09:28 94 Room Air 07/18/19 06:01 36.0 73 18 118/66 (83) 94 Room Air 07/17/19 21:00 Room Air 07/17/19 20:54 84 110/66 (81) 07/17/19 18:00 37.0 82 16 109/63 (78) 92 Room Air I & O 07/18/19 06:59 Intake Total 1140 ml Balance 1140 ml Height & Weight Height: 5'10.00" Weight: 237lbs. 0.0oz. 107.714409ms; 37.98 BMI Method:Stated General Appearance: No Apparent Distress, WD/WN, Chronically ill, Obese HEENT: PERRL/EOMI, Normal ENT Inspection, Pharynx Normal Neck: Full Range of Motion, Normal Inspection, Non Tender, Supple, Carotid Bruit Respiratory: Chest Non Tender, Lungs Clear, Normal Breath Sounds, No Accessory Muscle Use, No Respiratory Distress Cardiovascular: Regular Rate, Rhythm, No Edema, No Gallop, No JVD, No Murmur, Normal Peripheral Pulses Capillary Refill: Less Than 3 Seconds Extremity: Normal Capillary Refill, Normal Inspection, Normal Range of Motion, Non Tender, No Calf Tenderness, No Pedal Edema Neurologic/Psychiatric: Alert, Oriented x3, No Motor/Sensory Deficits, Normal Mood/Affect, medical bill 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 s/p Fusion L2-5 with laminectomy VENKAT APARICIO DO Jul 18, 2019 11:30
--- NOTE | 2019-07-18 16:45 | NUR ---
CM/SS WEEKLY TEAM CONFERENCE SUMMARY Patient is in agreement to a target discharge for 07/21/19. We discussed HHC, he is tentative about this service but will follow the recommendations of the team. Patient will discuss a transport time with his spouse Mica Martin. Continue to follow patient to finalize a safe post hospital plan with appropriate resources/supports.
[2019-07-18 18:03] VITALS: BP 117/71
[2019-07-18] MEDS: MONTELUKAST 10 MG (SINGULAIR) TAB PO SCH (20:18)
--- NOTE | 2019-07-19 00:35 | NUR ---
Assumed care of patient at this time due to staffing changes.
[2019-07-19] MEDS: NYSTATIN ORAL SUSP 5 ML UDC PO SCH ×4 (01:50→21:24)
[2019-07-19 05:09] VITALS: BP 149/78
[2019-07-19] MEDS: KCL 10 MEQ TAB (MICRO K) PO SCH ×2 (06:19→16:18)
[2019-07-19] MEDS: MULTIVIT W/MINERALS TAB (THERAGRAN M) PO SCH (06:19)
[2019-07-19] MEDS: FUROSEMIDE 20 MG (LASIX) TAB PO SCH ×2 (06:19→16:18)
[2019-07-19] MEDS: HYDROcodone/APAP 5 MG/325 MG (LORTAB) TAB PO PRN ×4 (06:23→23:11)
[2019-07-19] MEDS: LOSARTAN 50 MG (COZAAR) TAB PO SCH (08:33)
[2019-07-19] MEDS: CARVEDILOL 3.125 MG (COREG) TABLET PO SCH ×2 (08:33→21:23)
[2019-07-19] MEDS: FAMOTIDINE 20 MG (PEPCID) TABLET PO SCH ×2 (08:33→21:23)
[2019-07-19] MEDS: SENNA W/DOCUSATE (SENOKOT S) TABLET PO SCH ×2 (08:33→21:23)
[2019-07-19] MEDS: LORATADINE (CLARITIN) 10 MG TAB PO SCH (08:33)
[2019-07-19] MEDS: IBUPROFEN TABLET 200 MG TAB PO PRN (08:33)
[2019-07-19] MEDS: DOCUSATE SODIUM 100 MG (COLACE) CAP PO SCH ×2 (08:33→21:23)
[2019-07-19] MEDS: polyethylene glycoL POWDER 17 GM (MIRALAX) PACK PO SCH ×2 (08:33→21:32)
--- NOTE | 2019-07-19 08:42 | PM&R Progress Note ---
Subjective HPI/CC On Admission Date Seen by Provider: Jul 19, 2019 Time Seen by Provider: 08:45 Subjective/Events-last exam DC is planned on Tuesday Pain is at an eight given an Ibuprofen and that helped Had a BM on 07/16 Incision looks really good Slept better last night Conferred with RN Reviewed therapy notes Checked meds and labs Review of Systems General: Fatigue Pulmonary: Dyspnea Musculoskeletal: back pain Objective Exam Vital Signs Vital Signs Date Time Temp Pulse Resp B/P (MAP) Pulse Ox O2 Delivery O2 Flow Rate FiO2 07/19/19 17:21 37.0 86 20 98/58 (71) 94 Room Air Capillary Refill : Less Than 3 SecondsLess Than 3 Seconds General Appearance: No Apparent Distress, WD/WN, Chronically ill, Obese HEENT: PERRL/EOMI, Normal ENT Inspection, Pharynx Normal Neck: Full Range of Motion, Normal Inspection, Non Tender, Supple, Carotid Bruit Respiratory: Chest Non Tender, Lungs Clear, Normal Breath Sounds, No Accessory Muscle Use, No Respiratory Distress Cardiovascular: Regular Rate, Rhythm, No Edema, No Gallop, No JVD, No Murmur, Normal Peripheral Pulses Gastrointestinal: Normal Bowel Sounds, No Organomegaly, No Pulsatile Mass, Non Tender, Soft Back: Decreased Range of Motion, Muscle Spasm, Vertebral Tenderness Extremity: Normal Capillary Refill, Normal Inspection, Normal Range of Motion, Non Tender, No Calf Tenderness, No Pedal Edema Neurologic/Psychiatric: Alert, Oriented x3, No Motor/Sensory Deficits, Normal Mood/Affect, 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 FIM Transfers Therapy Code Descriptions/Definitions Functional [place] Measure: 0=Not Assessed/NA 4=Minimal Assistance 1=Total Assistance 5=Supervision or Setup 2=Maximal Assistance 6=Modified [place] 3=Moderate Assistance 7=Complete IndependenceSCALE: Activities may be completed with or without assistive devices. 5-Zrpxdoaqpe-fxxmgvj completes the activity by him/herself with no assistance from a helper. 5-Set-up or Clean-up Assistance-helper sets up or cleans up; patient completes activity. [place] assists only prior to or following the activity. 4-Supervision or Touching Assistance-helper provides verbal cues and/or touching/steadying and/or contact guard assistance as patient completes activity. Assistance may be provided throughout the activity or intermittently. 3-Partial/Moderate Assistance-helper does LESS THAN HALF the effort. [place] lifts, holds or supports trunk or limbs, but provides less than half the effort. 2-Substantial/Maximal Assistance-helper does MORE THAN HALF the effort. [place] lifts or holds trunk or limbs and provides more than half the effort. 2-Rfsyowmao-kcdzra does ALL the effort. Patient does none of the effort to complete the activity. Or, the assistance of 2 or more helpers is required for the patient to complete the activity. If activity was not attempted, code reason: 7-Patient Refused. 9-Not Applicable-not attempted and the patient did not perform the activity before the current illness, exacerbation or injury. 10-Not Attempted due to Environmental Limitations-(lack of equipment, weather restraints, etc.). 88-Not Attempted due to Medical Conditions or Safety Concerns. Roll Left to Right (QC): 5 Sit to Lying (QC): 4 Sit to Stand (QC): 4 Chair/Rxe-xz-Rpgya Xfer(QC): 6 Car Transfer (QC): 88 (pt unsafe to attempt this date. ) Gait Training Does the Patient Walk?: Yes Distance: am: 100 x3, PM: 120, 50, 50, 120 Walk 10 feet (QC): 4 Walk 50 ft with 2 Turns(QC): 4 Walk 150 ft (QC): 88 Walking 10ft/uneven surface-QC: 88 Gait Persons Needed: 1 Gait Assistive Device: FWW Wheelchair Training Does the Pt Use a Wheelchair?: No Stair Training 1 Step (curb) (QC): 88 4 Steps (QC): 88 12 Steps (QC): 88 Balance Picking up an Object (QC): 88 (contraindicated with recent back surgery.) ADL-Treatment Eating (QC): 6 Oral Hygiene (QC): 6 (completes in chair in front of sink.) Shower/Bathe Self (QC): 6 (Pt sets up own sponge bath. Gathers all AE for dressing/ soap/ towels, etc. Pt agrees to place chair in front of sink at home for sponge bath as he doesn't plan to shower. Pt states he could bathe on toilet as sink next to toilet, pt educated on precautions/ no twisting. Pt agrees that chair would be best option.) Upper Body Dressing (QC): 4 (Cues for back brace.) Lower Body Dressing (QC): 6 (Completes in chair in front of sink with AE. ) On/Off Footwear (QC): 6 (completes with sock aide.) Toileting Hygiene (QC): 6 (IND during stance during bath) Toilet Transfer (QC): 6 (use of walker.) Assessment/Plan Assessment and Plan Assess & Plan/Chief Complaint Assessment: Lumbar stenosis with radiculopathy post op with severe debility PNA acute Sepsis DIONNE on biPAP HTN CAD Plan: IRF protocol but slow process 25/12 due to PNA and severe debility BM regimen to maintain Patient refuses a lot of meds and interventions Much improved but difficult to ascertain if he can gain more in order to go home Dispo home on Sat Fleets prn daily (1) Stenosis, spinal, lumbar (2) Coronary artery disease Status: Acute (3) Pneumonia Status: Acute (4) Lumbar radiculopathy (5) Sepsis (6) Leukocytosis (7) Non-compliance (8) Constipation (9) Hypertension (10) DIONNE treated with BiPAP (11) Lactic acid acidosis AYDE FRANCO DO Jul 19, 2019 08:42
--- NOTE | 2019-07-19 09:32 | Occupational Ther Daily Note ---
OT Current Status-Daily Note Subjective Pt seen in bed, awake/ alert. Pt readily agreeable to OT tx session this morning though stating 8/10 pain, nursing notified. Mental Status/Objective Patient Orientation: Normal For Age ADL-Treatment Therapy Code Descriptions/Definitions Functional [place] Measure: 0=Not Assessed/NA 4=Minimal Assistance 1=Total Assistance 5=Supervision or Setup 2=Maximal Assistance 6=Modified [place] 3=Moderate Assistance 7=Complete IndependenceSCALE: Activities may be completed with or without assistive devices. 3-Xignprecdi-biudyzp completes the activity by him/herself with no assistance from a helper. 5-Set-up or Clean-up Assistance-helper sets up or cleans up; patient completes activity. [place] assists only prior to or following the activity. 4-Supervision or Touching Assistance-helper provides verbal cues and/or touching/steadying and/or contact guard assistance as patient completes activity. Assistance may be provided throughout the activity or intermittently. 3-Partial/Moderate Assistance-helper does LESS THAN HALF the effort. [place] lifts, holds or supports trunk or limbs, but provides less than half the effort. 2-Substantial/Maximal Assistance-helper does MORE THAN HALF the effort. [place] lifts or holds trunk or limbs and provides more than half the effort. 6-Vfduybadg-glhxfe does ALL the effort. Patient does none of the effort to complete the activity. Or, the assistance of 2 or more helpers is required for the patient to complete the activity. If activity was not attempted, code reason: 7-Patient Refused. 9-Not Applicable-not attempted and the patient did not perform the activity before the current illness, exacerbation or injury. 10-Not Attempted due to Environmental Limitations-(lack of equipment, weather restraints, etc.). 88-Not Attempted due to Medical Conditions or Safety Concerns. Eating (QC): 6 Oral Hygiene (QC): 6 Shower/Bathe Self (QC): 7 Upper Body Dressing (QC): 4 (Pt completes shirt with IND. Requires demonstration of prep of back brace, able to place on with min A.) Lower Body Dressing (QC): 6 (use of brake lining maker and walker in stance.) On/Off Footwear: 6 (use of sock aide.) Toileting Hygiene (QC): 6 Toilet Transfer (QC): 6 Other Treatment Pt completes ADLs in room. Requests new socks, creams placed on pt's bilateral LE's near redness; redness decreased, swelling decreased. Pt states no pain/ itching on legs, states itching of incision on back. Pt ambulates to therapy gym with one 3-minute break. Completes 15 min of endurance ex on arm bike (low resistance, high time), pt educated of use of such settings for endurance training. Pt completes [place] game with good accuracy throughout time. Pt and OT discuss home situation and readiness for home, pt states he's taking it easy until ready to complete increased IADLs. Pt returns to room without break. Sits in recliner/ feet elevated, all needs met, call light in reach. Education OT Patient Education: Correct positioning, Exercise program, Home exercise program, Modified ADL techniques, Purpose of tx/functional activities Teaching Recipient: Patient Teaching Methods: Demonstration, Discussion Response to Teaching: Verbalize Understanding, Return Demonstration OT Short Term Goals Short Term Goals Time Frame: Jul 12, 2019 Eatin (met) Oral hygiene: 6 (met) Toileting hygiene: 3 (met) Shower/bathe self: 3 (met) Upper body dressin (met) Lower body dressin (met) Putting on/taking off footwear: 3 (met) OT Learning And Development Administrator Goals Usp Goals Time Frame: Jul 19, 2019 Eating (QC): 6 (met) Oral Hygiene (QC): 6 (met) Toileting Hygiene (QC): 6 (met) Shower/Bathe Self (QC): 6 (met) Upper Body Dressing (QC): 6 Lower Body Dressing (QC): 6 (met) On/Off Footwear (QC): 6 (met) Additional Goals: 1-Demonstrate ADL Tasks, 2-Verbalize Understanding, 3-ImproveStrength/Melissa 1=Demonstrate adherence to instructed precautions during ADL tasks. 2=Patient will verbalize/demonstrate understanding of assistive devices/modifications for ADL. 3=Patient will improve strength/tolerance for activity to enable patient to perform ADL's. OT Education/Plan Problem List/Assessment Assessment: Decreased Activ Tolerance, Edema, Impaired I ADL's Discharge Recommendations Plan/Recommendations: Continue POC Therapy Discharge Recommendati: Home & Family Equpiment Recommendations-D/C: Hip Kit Treatment Plan/Plan of Care Treatment,Training & Education: Yes Patient would benefit from OT for education, treatment and training to promote independence in ADL's, mobility, safety and/or upper extremity function for ADL's. Plan of Care: ADL Retraining, Caregiver Training, Concurrent Therapy, Functional Mobility, Group Exercise/Act as Ind, Orthotic Fitting/Training, UE Funct Exercise/Act Treatment Duration: Jul 19, 2019 Frequency: At least 5 of 7 days/Wk (IRF) Estimated Hrs Per Day: 1.5 hours per day Agreement: Yes Rehab Potential: Good Time/GCodes Start Time: 07:55 Stop Time: 09:25 Total Time Billed (hr/min): 90 Billed Treatment Time 1, ADL 3 (45), EX 3 (45)= 90 YASIR VALLADARES OTR Jul 19, 2019 09:32
[2019-07-19] MEDS: ADVAIR 250 MCG/50 MCG (NON-FORMULARY) IH SCH (09:33)
[2019-07-19] MEDS: ALBUTEROL IH PRN (09:33)
[2019-07-19] MEDS: NYSTATIN CREAM (MYCOSTATIN) 30 GM TUBE TP SCH ×2 (09:39→21:26)
[2019-07-19] MEDS: TRIAMCINOLONE 0.1% CR (KENALOG) 80 GM TUBE TP SCH ×2 (09:39→21:25)
[2019-07-19] MEDS ORDERED: TR1C15 TP (10:15)
[2019-07-19] MEDS ORDERED: MULT1TAB63 PO (10:15)
[2019-07-19] MEDS ORDERED: NYST15CR TP (10:15)
[2019-07-19] MEDS ORDERED: CYCL10TA9 PO (10:15)
[2019-07-19] MEDS ORDERED: SENN-20 PO (10:15)
[2019-07-19] MEDS ORDERED: FURO20TA4 PO (10:15)
[2019-07-19] MEDS ORDERED: POTA10TA6 PO (10:15)
[2019-07-19] MEDS ORDERED: LORA10TA7 PO (10:15)
[2019-07-19] MEDS ORDERED: HYDR-3812 PO (10:15)
--- NOTE | 2019-07-19 10:22 | D/C HH Face to Face Order ---
D/C Face to Face Orders Reconcile Patient Problems Problems Reviewed?: Yes Instructions for Patient Via [facility], Patient Instructions/FollowUp: Dr Holden in 1 week Physician to follow Patient: Dr Holden Discharge Diet for Home: No Restrictions Patient Problems: Lumbar spine surgery Goals for Patient: [place] Patient Data-Allergies,Ht & Wt Patient Allergies: Coded Allergies: No Known Drug Allergies (Unverified , 08/13/16) Height (Feet): 5 Height (Inches): 10.00 Weight (Pounds): 237 Weight (Ounces): 0.0 Home Health Need/Face to Face Date of Face to Face: Jul 19, 2019 Clinical Findings: Generalized weakness and fatigue, Muscle weakness, Shortness of breath I have seen Pt hknr-yf-avvn: Yes Discharged To: Home Diagnosis/Conditions: Lumbar spine surgery Patient is Homebound due to: Ian fall risk due to instabilty, Muscle weakness, Shortness of breath/distress Homebound Status Due to the above stated illness, injury or surgical procedure (medical condition or diagnosis) and associated clinical findings, the patient is homebound because of his/her inability to leave home except with aid of a supportive device and/or person AND leaving the home requires a considerable and taxing effort or is medically contraindicated. Pt req the following assistanc: Walker Home Health Nursing Orders Home Health Services Order: Nursing Services, Spare Hand Carding-Evaluate & Treat, Physical Therapy-Evaluate & Treat Home Health Infusion Therapy Line Start Date: Jul 05, 2019 Certify Stmt I certify that this patient is under my care and that I, a nurse practitioner or a physician; a lead recreation assistant working with me, had a face to face encounter that - meets the physician face to face encounter requirements with this patient as dated. AYDE FRANCO DO Jul 19, 2019 10:22
--- NOTE | 2019-07-19 10:55 | Physical Therapy Daily Note ---
PT Daily Note-Current Subjective Patient on toilet pre tx, agrees to PT, has 8/10 pain in back, states he has already had pain meds. Patient is able to use the restroom without assist for pants or cleaning. Appearance Patient in recliner post tx with nurse call, phone, tray, all needs met. Mental Status Patient Orientation: Normal For Age back brace Transfers SCALE: Activities may be completed with or without assistive devices. 2-Ydsacevzmp-socgfgq completes the activity by him/herself with no assistance from a helper. 5-Set-up or Clean-up Assistance-helper sets up or cleans up; patient completes activity. [place] assists only prior to or following the activity. 4-Supervision or Touching Assistance-helper provides verbal cues and/or touching/steadying and/or contact guard assistance as patient completes activity. Assistance may be provided throughout the activity or intermittently. 3-Partial/Moderate Assistance-helper does LESS THAN HALF the effort. [place] lifts, holds or supports trunk or limbs, but provides less than half the effort. 2-Substantial/Maximal Assistance-helper does MORE THAN HALF the effort. [place] lifts or holds trunk or limbs and provides more than half the effort. 1-Tgoojqqyj-pdsxhh does ALL the effort. Patient does none of the effort to complete the activity. Or, the assistance of 2 or more helpers is required for the patient to complete the activity. If activity was not attempted, code reason: 7-Patient Refused. 9-Not Applicable-not attempted and the patient did not perform the activity before the current illness, exacerbation or injury. 10-Not Attempted due to Environmental Limitations-(lack of equipment, weather restraints, etc.). 88-Not Attempted due to Medical Conditions or Safety Concerns. Sit to Stand (QC): 6 Chair/Efd-pk-Bmmpv Xfer(QC): 6 Toilet Transfer (QC): 6 Weight Bearing Right Lower Extremity: Right Full Weight Bearing Left Lower Extremity: Left Full Weight Bearing Gait Training Distance: 60'x4 Walk 10 feet (QC): 4 Walk 50 ft with 2 Turns(QC): 4 Gait Persons Needed: 1 Gait Assistive Device: FWW SBA, slow, antalgic, but steady Exercises sit to stand at parallel bars x5, side stepping at parallel bars 8'x6 NuStep Minutes: 15 NuStep Workload: 4 Treatments transfers, ambulation, LE exercise Assessment Current Status: Fair Progress more stable transfers and ambulation, continued significant back pain PT Short Term Goals Short Term Goals Time Frame: Jul 12, 2019 Sit to lyin Lying to sitting on side of be: 4 Sit to stand: 5 Chair/wwy-ep-pifeb transfer: 5 Walk 150 feet: 4 1 step (curb): 4 PT Half-Way Goals Half-Way Goals PT Level Vial Setter Goals Time Frame: Jul 20, 2019 Roll Left & Right (QC): 6 Sit to Lying (QC): 6 Lying-Sitting on Side/Bed(QC): 6 Sit to Stand (QC): 6 Chair/Yij-hc-Ufvid Xfer(QC): 6 Toilet Transfer (QC): 6 Car Transfer (QC): 5 Does the Patient Walk: Yes Walk 10 feet (QC): 6 Walk 50ft with 2 Turns (QC): 6 Walk 150 ft (QC): 6 Walking 10ft on Uneven Surface: 6 1 Step (curb) (QC): 6 4 Steps (QC): 6 12 Steps (QC): 9 Picking up an Object (QC): 88 Does the Pt use WC or Scooter?: No PT Plan Problem List Problem List: Activity Tolerance, Functional Strength, Safety, Balance, Gait, Transfer, Bed Mobility, ROM Treatment/Plan Treatment Plan: Continue Plan of Care Treatment Plan: Bed Mobility, Education, Functional Activity Melissa, Functional Strength, Group Therapy, Gait, Safety, Therapeutic Exercise, Transfers Treatment Duration: Jul 20, 2019 Frequency: Modified Program (IRF) (15/ per physician) Estimated Hrs Per Day: 1.5 hours per day (1 to 1.5) Patient and/or Family Agrees t: Yes Safety Risks/Education Patient Education: Gait Training, Transfer Techniques, Correct Positioning, Reviewed Don/Doff Brace, Safety Issues Teaching Recipient: Patient Teaching Methods: Demonstration, Discussion Response to Teaching: Reinforcement Needed Time/GCodes Time In: 1000 Time Out: 1100 Total Billed Treatment Time: 60 Total Billed Treatment 1 visit GT 30' EX 20' FA 10' RHONDA STEPHENS PT Jul 19, 2019 10:54
--- NOTE | 2019-07-19 15:34 | Physical Therapy Daily Note ---
PT Daily Note-Current Subjective Patient agreeable to therapy at this time but states before he gets up to walk would like his pain medication. Pain Numeric Pain Scale: 8 Location: Lower Location Body Site: Back Appearance Patient in recliner with call light and bedside table within reach. Mental Status Patient Orientation: Normal For Age Attachments: Other-See Comments (Back brace) Transfers SCALE: Activities may be completed with or without assistive devices. 5-Lxspoohddz-xzadcco completes the activity by him/herself with no assistance from a helper. 5-Set-up or Clean-up Assistance-helper sets up or cleans up; patient completes activity. [place] assists only prior to or following the activity. 4-Supervision or Touching Assistance-helper provides verbal cues and/or touching/steadying and/or contact guard assistance as patient completes activity. Assistance may be provided throughout the activity or intermittently. 3-Partial/Moderate Assistance-helper does LESS THAN HALF the effort. [place] lifts, holds or supports trunk or limbs, but provides less than half the effort. 2-Substantial/Maximal Assistance-helper does MORE THAN HALF the effort. [place] lifts or holds trunk or limbs and provides more than half the effort. 2-Jrdmjrkht-tibwry does ALL the effort. Patient does none of the effort to complete the activity. Or, the assistance of 2 or more helpers is required for the patient to complete the activity. If activity was not attempted, code reason: 7-Patient Refused. 9-Not Applicable-not attempted and the patient did not perform the activity before the current illness, exacerbation or injury. 10-Not Attempted due to Environmental Limitations-(lack of equipment, weather restraints, etc.). 88-Not Attempted due to Medical Conditions or Safety Concerns. Sit to Stand (QC): 6 Weight Bearing Right Lower Extremity: Right Full Weight Bearing Left Lower Extremity: Left Full Weight Bearing Gait Training Does the Patient Walk?: Yes Distance: 150' x 1; 75' x 2 Walk 10 feet (QC): 4 Walk 50 ft with 2 Turns(QC): 4 Walk 150 ft (QC): 4 Gait Persons Needed: 1 Gait Assistive Device: FWW SBA for ambulation. Wheelchair Training Does the Pt Use a Wheelchair?: No Stair Training Stair Training: Handrails/: 1 handrail #of Steps: 4 1 Step (curb) (QC): 4 4 Steps (QC): 4 CGA for safety. Patient educated of proper sequence for ascending/descending stairs. Patient ascended/descended 4 steps two times with a rest break in between. Exercises Seated Therapy Exercises: Ankle pumps (20BLE), Long arc quads (20BLE), Hip flexion (20BLE) Treatments BLE exercises, ambulation, stairs. Assessment Current Status: Good Progress Patient was steady during ambulation and requires several standing rest breaks due to fatigue and pain. Patient used a step to pattern ascending/descending the stairs CGA. With stairs patient was stable and stated he is not worried about the stairs to get into his house. PT Short Term Goals Short Term Goals Time Frame: Jul 12, 2019 Sit to lyin Lying to sitting on side of be: 4 Sit to stand: 5 Chair/ayl-gr-yoiis transfer: 5 Walk 150 feet: 4 1 step (curb): 4 PT Job Change Crew Member Goals Job Change Crew Member Goals PT Job Change Crew Member Goals Time Frame: Jul 25, 2019 Roll Left & Right (QC): 6 Sit to Lying (QC): 6 Lying-Sitting on Side/Bed(QC): 6 Sit to Stand (QC): 6 Chair/Xsi-nk-Gkich Xfer(QC): 6 Toilet Transfer (QC): 6 Car Transfer (QC): 5 Does the Patient Walk: Yes Walk 10 feet (QC): 6 Walk 50ft with 2 Turns (QC): 6 Walk 150 ft (QC): 6 Walking 10ft on Uneven Surface: 6 1 Step (curb) (QC): 6 4 Steps (QC): 6 12 Steps (QC): 9 Picking up an Object (QC): 88 Does the Pt use WC or Scooter?: No PT Plan Problem List Problem List: Activity Tolerance, Functional Strength, Safety, Balance, Gait, Transfer, Bed Mobility, ROM Treatment/Plan Treatment Plan: Continue Plan of Care Treatment Plan: Bed Mobility, Education, Functional Activity Melissa, Functional Strength, Group Therapy, Gait, Safety, Therapeutic Exercise, Transfers Treatment Duration: Jul 25, 2019 Frequency: Modified Program (IRF) (15/ per physician) Estimated Hrs Per Day: 1.5 hours per day (1 to 1.5) Patient and/or Family Agrees t: Yes Safety Risks/Education Patient Education: Gait Training, Transfer Techniques, Steps Teaching Recipient: Patient Teaching Methods: Demonstration, Discussion Response to Teaching: Reinforcement Needed Time/GCodes Time In: 1400 Time Out: 1430 Total Billed Treatment Time: 30 Total Billed Treatment 1 visit GT 15 FA 15 MELISSA NI PT Jul 19, 2019 15:34
--- NOTE | 2019-07-19 15:43 | NUR ---
CM/SS DISCHARGE PLANNING Followup with patient regarding our discussion about HHC post hospital care plan. Provided Medicare Compare, patient does not wish to have HHC at this time. Will not be pursued unless patient changes his mind and requests set up. Finalize all arrangements tomorrow for Tuesday discharge.
[2019-07-19 17:21] VITALS: BP 98/58
[2019-07-19] MEDS: MONTELUKAST 10 MG (SINGULAIR) TAB PO SCH (21:23)
[2019-07-19] MEDS: CYCLOBENZAPRINE 10 MG (FLEXERIL) TAB PO PRN (22:36)
[2019-07-20] MEDS: NYSTATIN ORAL SUSP 5 ML UDC PO SCH ×4 (02:01→20:22)
[2019-07-20 06:09] VITALS: BP 113/70
[2019-07-20] MEDS: HYDROcodone/APAP 5 MG/325 MG (LORTAB) TAB PO PRN ×4 (06:14→22:01)
[2019-07-20] MEDS: MULTIVIT W/MINERALS TAB (THERAGRAN M) PO SCH (06:14)
[2019-07-20] MEDS: KCL 10 MEQ TAB (MICRO K) PO SCH ×2 (06:14→17:24)
[2019-07-20] MEDS: FUROSEMIDE 20 MG (LASIX) TAB PO SCH ×2 (06:14→17:24)
[2019-07-20] MEDS: FAMOTIDINE 20 MG (PEPCID) TABLET PO SCH ×2 (08:47→20:22)
[2019-07-20] MEDS: LOSARTAN 50 MG (COZAAR) TAB PO SCH (08:47)
[2019-07-20] MEDS: LORATADINE (CLARITIN) 10 MG TAB PO SCH (08:47)
[2019-07-20] MEDS: IBUPROFEN TABLET 200 MG TAB PO PRN (08:48)
[2019-07-20] MEDS: TRIAMCINOLONE 0.1% CR (KENALOG) 80 GM TUBE TP SCH ×2 (08:48→20:24)
[2019-07-20] MEDS: DOCUSATE SODIUM 100 MG (COLACE) CAP PO SCH ×2 (08:48→20:22)
[2019-07-20] MEDS: SENNA W/DOCUSATE (SENOKOT S) TABLET PO SCH ×2 (08:48→20:23)
[2019-07-20] MEDS: CARVEDILOL 3.125 MG (COREG) TABLET PO SCH ×2 (08:48→20:22)
[2019-07-20] MEDS: NYSTATIN CREAM (MYCOSTATIN) 30 GM TUBE TP SCH ×2 (08:49→20:24)
[2019-07-20] MEDS: polyethylene glycoL POWDER 17 GM (MIRALAX) PACK PO SCH ×2 (08:49→20:23)
--- NOTE | 2019-07-20 08:59 | Occupational Ther Daily Note ---
OT Current Status-Daily Note Subjective Pt seen in bed, agreeable to OT tx session. Pt states 7/10 pain in back, once up in bed states sharp/ immediate pain.Pt agrees to sponge bath EOB. Mental Status/Objective Patient Orientation: Normal For Age ADL-Treatment Therapy Code Descriptions/Definitions Functional [place] Measure: 0=Not Assessed/NA 4=Minimal Assistance 1=Total Assistance 5=Supervision or Setup 2=Maximal Assistance 6=Modified [place] 3=Moderate Assistance 7=Complete IndependenceSCALE: Activities may be completed with or without assistive devices. 5-Riclvdigij-nremxfh completes the activity by him/herself with no assistance from a helper. 5-Set-up or Clean-up Assistance-helper sets up or cleans up; patient completes activity. [place] assists only prior to or following the activity. 4-Supervision or Touching Assistance-helper provides verbal cues and/or touching/steadying and/or contact guard assistance as patient completes activity. Assistance may be provided throughout the activity or intermittently. 3-Partial/Moderate Assistance-helper does LESS THAN HALF the effort. [place] lifts, holds or supports trunk or limbs, but provides less than half the effort. 2-Substantial/Maximal Assistance-helper does MORE THAN HALF the effort. [place] lifts or holds trunk or limbs and provides more than half the effort. 3-Fodpewuar-biwudl does ALL the effort. Patient does none of the effort to complete the activity. Or, the assistance of 2 or more helpers is required for the patient to complete the activity. If activity was not attempted, code reason: 7-Patient Refused. 9-Not Applicable-not attempted and the patient did not perform the activity before the current illness, exacerbation or injury. 10-Not Attempted due to Environmental Limitations-(lack of equipment, weather restraints, etc.). 88-Not Attempted due to Medical Conditions or Safety Concerns. Eating (QC): 6 Oral Hygiene (QC): 6 Shower/Bathe Self (QC): 6 (Completes with IND EOB- able to reach all areas safely and thoroughly) Upper Body Dressing (QC): 6 (completes back brace with IND.) Lower Body Dressing (QC): 6 (Pt gathers clothing items. Completes with AE.) On/Off Footwear: 6 (sock aide utilized.) Toileting Hygiene (QC): 6 Toilet Transfer (QC): 6 (Use of walker.) Other Treatment Pt completes sponge bath EOB, able to determine all items required prior to initiation of sponge bath. Pt states he took pain medication ~6am, states pain has not really decreased. Nursing comes in and pt agrees to PRN. Pt completes all ADLs with IND on this date. Pt states no concerns with d/c to home tomorrow, states bed mob has increased and is confident of ability to complete at home. Pt educated on safety in home. Pt completes 15 reps of BUE theraband ex: back flies, shoulder scaption, triceps, and ext rotations. Pt denies needs, all questions answered, call light in reach Education OT Patient Education: Correct positioning, Exercise program, Home exercise program, Progress toward Goal/Update tx plan, Safety issues, Use of adapted e quipment Teaching Recipient: Patient Teaching Methods: Demonstration, Discussion Response to Teaching: Verbalize Understanding, Return Demonstration OT Short Term Goals Short Term Goals Time Frame: Jul 12, 2019 Eatin (met) Oral hygiene: 6 (met) Toileting hygiene: 3 (met) Shower/bathe self: 3 (met) Upper body dressin (met) Lower body dressin (met) Putting on/taking off footwear: 3 (met) OT Concrete Crusher Loader Operator Goals Concrete Crusher Loader Operator Goals Time Frame: Jul 19, 2019 Eating (QC): 6 (met) Oral Hygiene (QC): 6 (met) Toileting Hygiene (QC): 6 (met) Shower/Bathe Self (QC): 6 (met) Upper Body Dressing (QC): 6 (met) Lower Body Dressing (QC): 6 (met) On/Off Footwear (QC): 6 (met) Additional Goals: 1-Demonstrate ADL Tasks, 2-Verbalize Understanding, 3- ImproveStrength/Melissa 1=Demonstrate adherence to instructed precautions during ADL tasks. 2=Patient will verbalize/demonstrate understanding of assistive devices/modifications for ADL. 3=Patient will improve strength/tolerance for activity to enable patient to perform ADL's. OT Education/Plan Problem List/Assessment Assessment: Decreased Activ Tolerance, Impaired I ADL's, Impaired Self-Care Skills Discharge Recommendations Plan/Recommendations: Continue POC Therapy Discharge Recommendati: Home & Family Equpiment Recommendations-D/C: Hip Kit Treatment Plan/Plan of Care Treatment,Training & Education: Yes Patient would benefit from OT for education, treatment and training to promote independence in ADL's, mobility, safety and/or upper extremity function for ADL's. Plan of Care: ADL Retraining, Caregiver Training, Concurrent Therapy, Functional Mobility, Group Exercise/Act as Ind, Orthotic Fitting/Training, UE Funct Exercise/Act Treatment Duration: Jul 19, 2019 Frequency: At least 5 of 7 days/Wk (IRF) Estimated Hrs Per Day: 1.5 hours per day Agreement: Yes Rehab Potential: Good Time/GCodes Start Time: 08:00 Stop Time: 09:00 Total Time Billed (hr/min): 60 Billed Treatment Time 1, ADL 3 (45), EX (15)= 60 YASIR VALLADARES OTR Jul 20, 2019 08:59
--- NOTE | 2019-07-20 09:10 | PM&R Progress Note ---
Subjective HPI/CC On Admission Date Seen by Provider: Jul 20, 2019 Time Seen by Provider: 09:15 Subjective/Events-last exam Pt set for DC tomorrow Bowels moved last night Overall negative outlook but that is chronic in nature Feels pretty good otherwise Ready for DC Pain medication prescription already printed off and signed Conferred with RN Reviewed therapy notes Checked meds and labs Review of Systems Musculoskeletal: back pain Objective Exam Vital Signs Vital Signs Date Time Temp Pulse Resp B/P (MAP) Pulse Ox O2 Delivery O2 Flow Rate FiO2 07/20/19 09:21 92 Room Air 07/20/19 06:09 36.6 75 18 113/70 (84) Capillary Refill : Less Than 3 SecondsLess Than 3 Seconds General Appearance: No Apparent Distress, WD/WN, Chronically ill, Obese HEENT: PERRL/EOMI, Normal ENT Inspection, Pharynx Normal Neck: Full Range of Motion, Normal Inspection, Non Tender, Supple, Carotid Bruit Respiratory: Chest Non Tender, Lungs Clear, Normal Breath Sounds, No Accessory Muscle Use, No Respiratory Distress Cardiovascular: Regular Rate, Rhythm, No Edema, No Gallop, No JVD, No Murmur, Normal Peripheral Pulses Gastrointestinal: Normal Bowel Sounds, No Organomegaly, No Pulsatile Mass, Non Tender, Soft Back: Decreased Range of Motion, Muscle Spasm, Vertebral Tenderness Extremity: Normal Capillary Refill, Normal Inspection, Normal Range of Motion, Non Tender, No Calf Tenderness, No Pedal Edema Neurologic/Psychiatric: Alert, Oriented x3, No Motor/Sensory Deficits, Normal Mood/Affect, staff antisubmarine officer II-XII Norm as Tested, Motor Weakness (lower legs) Skin: Normal Color, Warm/Dry Lymphatic: No Adenopathy Results/Procedures Lab Patient resulted labs reviewed. FIM Transfers Therapy Code Descriptions/Definitions Functional [place] Measure: 0=Not Assessed/NA 4=Minimal Assistance 1=Total Assistance 5=Supervision or Setup 2=Maximal Assistance 6=Modified [place] 3=Moderate Assistance 7=Complete IndependenceSCALE: Activities may be completed with or without assistive devices. 3-Aqspoevxiv-sqpowkp completes the activity by him/herself with no assistance from a helper. 5-Set-up or Clean-up Assistance-helper sets up or cleans up; patient completes activity. [place] assists only prior to or following the activity. 4-Supervision or Touching Assistance-helper provides verbal cues and/or touching/steadying and/or contact guard assistance as patient completes activity. Assistance may be provided throughout the activity or intermittently. 3-Partial/Moderate Assistance-helper does LESS THAN HALF the effort. [place] lifts, holds or supports trunk or limbs, but provides less than half the effort. 2-Substantial/Maximal Assistance-helper does MORE THAN HALF the effort. [place] lifts or holds trunk or limbs and provides more than half the effort. 9-Jnlclwnox-wbceji does ALL the effort. Patient does none of the effort to complete the activity. Or, the assistance of 2 or more helpers is required for the patient to complete the activity. If activity was not attempted, code reason: 7-Patient Refused. 9-Not Applicable-not attempted and the patient did not perform the activity before the current illness, exacerbation or injury. 10-Not Attempted due to Environmental Limitations-(lack of equipment, weather restraints, etc.). 88-Not Attempted due to Medical Conditions or Safety Concerns. Roll Left to Right (QC): 5 Sit to Lying (QC): 4 Sit to Stand (QC): 6 Chair/Qdj-zm-Ulljl Xfer(QC): 6 Car Transfer (QC): 88 (pt unsafe to attempt this date. ) Gait Training Does the Patient Walk?: Yes Distance: 150' x 1; 75' x 2 Walk 10 feet (QC): 4 Walk 50 ft with 2 Turns(QC): 4 Walk 150 ft (QC): 4 Walking 10ft/uneven surface-QC: 88 Gait Persons Needed: 1 Gait Assistive Device: FWW Wheelchair Training Does the Pt Use a Wheelchair?: No Stair Training Stair Training: Handrails/: 1 handrail #of Steps: 4 1 Step (curb) (QC): 4 4 Steps (QC): 4 12 Steps (QC): 88 Balance Picking up an Object (QC): 88 (contraindicated with recent back surgery.) ADL-Treatment Eating (QC): 6 Oral Hygiene (QC): 6 Shower/Bathe Self (QC): 6 (Completes with IND EOB- able to reach all areas safely and thoroughly) Upper Body Dressing (QC): 6 (completes back brace with IND.) Lower Body Dressing (QC): 6 (Pt gathers clothing items. Completes with AE.) On/Off Footwear (QC): 6 (sock aide utilized.) Toileting Hygiene (QC): 6 Toilet Transfer (QC): 6 (Use of walker.) Assessment/Plan Assessment and Plan Assess & Plan/Chief Complaint Assessment: Lumbar stenosis with radiculopathy post op with severe debility PNA acute Sepsis DIONNE on biPAP HTN CAD Plan: IRF protocol but slow process 25/12 due to PNA and severe debility BM regimen to maintain Patient refuses a lot of meds and interventions Much improved but difficult to ascertain if he can gain more in order to go home Dispo home on Sat Fleets prn daily (1) Stenosis, spinal, lumbar (2) Coronary artery disease Status: Acute (3) Pneumonia Status: Acute (4) Lumbar radiculopathy (5) Sepsis (6) Leukocytosis (7) Non-compliance (8) Constipation (9) Hypertension (10) DIONNE treated with BiPAP (11) Lactic acid acidosis AYDE FRANCO DO Jul 20, 2019 09:10
[2019-07-20] MEDS: ADVAIR 250 MCG/50 MCG (NON-FORMULARY) IH SCH ×2 (09:21→23:57)
[2019-07-20] MEDS: ALBUTEROL IH PRN (09:21)
--- NOTE | 2019-07-20 09:54 | Cardiology Progress Note ---
Subjective Date Seen by Provider: Jul 20, 2019 Time Seen by Provider: 09:53 Subjective/Events-last exam Patient is sitting in bed, feeling better. No new complaint Review of Systems General: No Chills, No Night Sweats, No Fatigue, No Malaise, No Appetite, No Other HEENT: No Head Aches, No Visual Changes, No Eye Pain, No Ear Pain, No Dysphasia, No Sinus Congestion, No Post Nasal Drip, No Sore Throat, No Other Pulmonary: No Dyspnea, No Cough, No Pleuritic Chest Pain, No Other Cardiovascular: No: Chest Pain, Palpitations, Orthopnea, Paroxysmal Noc. Dyspnea, Edema, Lt Headedness, Other Objective-Cardiology Exam Last Set of Vital Signs Vital Signs 07/20/19 07/20/19 06:09 09:21 Temp 36.6 Pulse 75 Resp 18 B/P (MAP) 113/70 (84) Pulse Ox 92 O2 Delivery Room Air Capillary Refill : Less Than 3 SecondsLess Than 3 Seconds I&O Intake and Output 07/20/19 00:00 Intake Total 880 ml Balance 880 ml Intake Oral 880 ml # Voids 5 General: Alert, Oriented X3, Cooperative HEENT: Atraumatic, PERRLA Neck: Supple, No JVD, No Thyromegaly Lungs: Clear to Auscultation, Normal Air Movement Heart: Regular Rate, Normal S1, Normal S2, No Murmurs Abdomen: No Tenderness, No Hepatosplenomegaly Extremities: No Clubbing, Other (+1-2 edema BLE) Skin: No Significant Lesion, Other (erythema to BLE) Neuro: Normal Speech, Cranial Nerves 3-12 NL Psych/Mental Status: Mental Status NL, Mood NL A/P-Cardiology Admission Diagnosis Coronary artery disease Debility COPD Hypertension Assessment/Plan Spinal stenosis, had recent surgery, recovering slowly, generalized weakness and debility, reporting improvement. Managed by primary care team COPD, obstructive sleep apnea, shortness of breath on exertion. s/p pneumonia. Coronary artery disease, history of multiple intervention in the past, had a stress test done in May 2019 showing no ischemia or infarction. Normal EF. Continue to monitor Peripheral edema, started on Lasix, continue to monitor Hypertension, controlled, continue to monitor. Hyperlipidemia. Continue to monitor lipids Morbid obesity, BMI 38, receiving physical therapy. Constipation,resolved, management by PCP Erythema to BLE, just above ankles. Continue to monitor. Patient started on antifungal medication. Clinical Quality Measures DVT/VTE Risk/Contraindication: Risk Factor Score Per Nursin RFS Level Per Nursing on Admit: 4+=Very High ADRYAN NAVARRO MD Jul 20, 2019 09:54
--- NOTE | 2019-07-20 10:59 | Pulmonary Progress Note ---
Standard Progress Note Progress Notes Date Seen by Provider: Jul 20, 2019 Time Seen by Provider: 09:10 pt is resting in chair and denies shortness of breath. He reports slight cough with white to yellow tinge but reports it is improving. He denies oxygen need and does not have oxygen on. He is wearing bipap at night. Assessment & Plan Severe COPD - stable -Duoneb -Oxygen -Monitor -advair Morbid obesity CAD Debility History of LBP with resultant need for surgery. s/p Fusion L2-5 with laminectomy Lungs cta, HRRR, a & o x 4 CLAY BROWN APRN Jul 20, 2019 10:59
--- NOTE | 2019-07-20 11:02 | Physical Therapy Daily Note ---
PT Daily Note-Current Subjective Patient in bed pre tx, agrees to PT, has 7/10 pain, nurse notified and he got pain meds. Appearance Patient in recliner post tx with nurse call, phone, tray, all needs met. Mental Status Patient Orientation: Normal For Age back brace, patient still needs assist donning/doffing back brace Transfers SCALE: Activities may be completed with or without assistive devices. 5-Aduqrrixih-hufipns completes the activity by him/herself with no assistance from a helper. 5-Set-up or Clean-up Assistance-helper sets up or cleans up; patient completes activity. [place] assists only prior to or following the activity. 4-Supervision or Touching Assistance-helper provides verbal cues and/or touching/steadying and/or contact guard assistance as patient completes activity. Assistance may be provided throughout the activity or intermittently. 3-Partial/Moderate Assistance-helper does LESS THAN HALF the effort. [place] lifts, holds or supports trunk or limbs, but provides less than half the effort. 2-Substantial/Maximal Assistance-helper does MORE THAN HALF the effort. [place] lifts or holds trunk or limbs and provides more than half the effort. 3-Xflzzlfww-wtjara does ALL the effort. Patient does none of the effort to complete the activity. Or, the assistance of 2 or more helpers is required for the patient to complete the activity. If activity was not attempted, code reason: 7-Patient Refused. 9-Not Applicable-not attempted and the patient did not perform the activity before the current illness, exacerbation or injury. 10-Not Attempted due to Environmental Limitations-(lack of equipment, weather restraints, etc.). 88-Not Attempted due to Medical Conditions or Safety Concerns. Roll Left & Right (QC): 6 Sit to Lying (QC): 6 Lying to Sitting/Side of Bed(Q: 6 Sit to Stand (QC): 6 Chair/Gip-cn-Ctufv Xfer(QC): 6 Toilet Transfer (QC): 6 Car Transfer (QC): 6 Patient performs bed mobility with independence, supine <-> sit independent, sit <-> stand independence, transfers independent, car transfer independent. Weight Bearing Right Lower Extremity: Right Full Weight Bearing Left Lower Extremity: Left Full Weight Bearing Gait Training Distance: 150', 60'x2 Walk 10 feet (QC): 6 Walk 50 ft with 2 Turns(QC): 6 Walk 150 ft (QC): 6 Walking 10ft/uneven surface-QC: 6 Gait Assistive Device: FWW Patient can ambulate 150' with a rolling walker with independence (including 50' with at least 2 turns of 90 degrees and 10' over an uneven surface). Patient ambulates slowly, antalgic, needs occasional rest break due to pain and fatigue. Wheelchair Training Does the Pt Use a Wheelchair?: No Stair Training Stair Training: Handrails/: 2 handrails #of Steps: 4 1 Step (curb) (QC): 4 4 Steps (QC): 4 12 Steps (QC): 88 Stairs: Pattern: Step to Patient can go up and down 4 steps using 2 handrails with SBA. He can do either step-to or reciprocal safely. Exercises NuStep Minutes: 15 NuStep Workload: 4 Treatments bed mobility and transfers, ambulation, stairs, functional strengthening Assessment Current Status: Fair Progress patient is now independent with most mobility but needs assist with back brace PT Short Term Goals Short Term Goals Time Frame: Jul 12, 2019 Sit to lyin Lying to sitting on side of be: 4 Sit to stand: 5 Chair/tor-vn-levwz transfer: 5 Walk 150 feet: 4 1 step (curb): 4 PT Mix Technician Goals Mix Technician Goals PT Care Home Goals Time Frame: Jul 25, 2019 Roll Left & Right (QC): 6 Sit to Lying (QC): 6 Lying-Sitting on Side/Bed(QC): 6 Sit to Stand (QC): 6 Chair/Niy-rc-Tsvxp Xfer(QC): 6 Toilet Transfer (QC): 6 Car Transfer (QC): 5 Does the Patient Walk: Yes Walk 10 feet (QC): 6 Walk 50ft with 2 Turns (QC): 6 Walk 150 ft (QC): 6 Walking 10ft on Uneven Surface: 6 1 Step (curb) (QC): 6 4 Steps (QC): 6 12 Steps (QC): 9 Picking up an Object (QC): 88 Does the Pt use WC or Scooter?: No PT Plan Problem List Problem List: Activity Tolerance, Functional Strength, Safety, Balance, Gait, Transfer, Bed Mobility, ROM Treatment/Plan Treatment Plan: Continue Plan of Care Treatment Plan: Bed Mobility, Education, Functional Activity Melissa, Functional Strength, Group Therapy, Gait, Safety, Therapeutic Exercise, Transfers Treatment Duration: Jul 25, 2019 Frequency: Modified Program (IRF) (/ per physician) Estimated Hrs Per Day: 1.5 hours per day (1 to 1.5) Patient and/or Family Agrees t: Yes Safety Risks/Education Patient Education: Gait Training, Transfer Techniques, Steps, Correct Positioning, Reviewed Don/Doff Brace, Safety Issues Teaching Recipient: Patient Teaching Methods: Demonstration, Discussion Response to Teaching: Reinforcement Needed Time/GCodes Time In: 1000 Time Out: 1100 Total Billed Treatment Time: 60 Total Billed Treatment 1 visit EX 15' GT 30' FA 15' RHONDA STEPHENS PT Jul 20, 2019 11:01
--- NOTE | 2019-07-20 14:40 | NUR ---
CM/SS DISCHARGE Patient has coordinated his transport and exit with his spouse for 07/21/19. He did not desire HHC and has all appropriate DME. No further interventions unless situation changes to warrant.
--- NOTE | 2019-07-20 14:50 | Therapy Group Daily Note ---
Therapy Daily Group Note Patient Education Topic Other List Below (memory, ARU orientation) Exercises LE Seated Exercise, UE Exercise Session Ratio (pt:therapist): 4:1 Goal of Session: Education on ARU Expectations, Memory Strategies, UE/LE Strengthing Goal Met for this Session: Yes Pt Benefit of Group: Contributions to Others, Increased Functional Strength, Improved Cognition, Recognition of Peers, Socialization Other/Notes Pt ambulated to therapy gym for OT/PT group. Group consisted of introductions (name, place living, what would you tell the world in 2 min), socialization, pt lead UE/LE seated exercises, memory strategies/activity and orientation to ARU. Pt introduced self appropriately and actively listened to peers. Pt then was able to follow directions to complete UE/LE seated exercises and able to lead group in exercise. Pt verbalized understanding of educational topics by giving personal strategies and opinions. Pt able to complete memory activity well. After group, pt lying in bed with jayesh light/phone in reach. All needs met in room. Start Time: 13:00 Stop Time: 14:15 Total Billed Treatment Time: 75 Total Billed Treatment 1-BRANDEE CHOI Jul 20, 2019 14:50
--- NOTE | 2019-07-20 14:53 | NUR ---
"RD ASSESSMENT PMHx: COPD; CAD; [place]; GERD; hypercholesterolemia PT INTERACTION: Pt was awake and pleasant during nutrition follow-up. Pt states currently eating okay since last assessment. Note avg PO intake of 50% of meals, per chart review. Pt states no issues with n/v/d since last assessment, but had been dealing with constipation. Pt states last BM was 07/19, and note pt currently on bowel regimen of colace BID; senna BID; and miralax BID, per chart review. ABNORMAL NUTRITION-RELATED LAB VALUES LOW: Na 132; Pro 6.2 HIGH: glu 113; AST 35 Est. kcal needs: 3400-4818 kcal | 15-18 kcal/kg Est. Pro needs: 85-106 g Pro | 0.8-1.0 g Pro/kg PES STATEMENT: Inadequate oral intake (NI-2.1) related to loss of appetite | constipation as evidenced by pt interview | avg PO intake 50% of meals INTERVENTION: Continue with current diet order of Regular diet. Note plan of care of pt discharging on 07/21, per chart review. Encouraged pt to eat when able upon discharge. Will continue to follow and reassess as pt needs and status change. MONITOR/EVALUATE: PO Intake; Plan of Care; Hydration Status; Weight Status; Lab Values Jesús Moore, MS, RD, LD"
[2019-07-20 17:45] VITALS: BP 132/78
[2019-07-20] MEDS: MONTELUKAST 10 MG (SINGULAIR) TAB PO SCH (20:22)
[2019-07-20] MEDS: CYCLOBENZAPRINE 10 MG (FLEXERIL) TAB PO PRN (20:30)
[2019-07-21] MEDS: NYSTATIN ORAL SUSP 5 ML UDC PO SCH ×4 (01:36→20:34)
[2019-07-21 05:01] VITALS: BP 135/77
[2019-07-21] MEDS: CARVEDILOL 3.125 MG (COREG) TABLET PO SCH ×2 (07:51→20:31)
[2019-07-21] MEDS: LOSARTAN 50 MG (COZAAR) TAB PO SCH (07:51)
[2019-07-21] MEDS: MULTIVIT W/MINERALS TAB (THERAGRAN M) PO SCH (07:51)
[2019-07-21] MEDS: KCL 10 MEQ TAB (MICRO K) PO SCH ×2 (07:51→18:23)
[2019-07-21] MEDS: DOCUSATE SODIUM 100 MG (COLACE) CAP PO SCH ×2 (07:51→20:34)
[2019-07-21] MEDS: FUROSEMIDE 20 MG (LASIX) TAB PO SCH ×2 (07:51→18:23)
[2019-07-21] MEDS: SENNA W/DOCUSATE (SENOKOT S) TABLET PO SCH ×2 (07:52→20:34)
[2019-07-21] MEDS: LORATADINE (CLARITIN) 10 MG TAB PO SCH (07:52)
[2019-07-21] MEDS: FAMOTIDINE 20 MG (PEPCID) TABLET PO SCH ×2 (07:52→20:30)
[2019-07-21] MEDS: HYDROcodone/APAP 5 MG/325 MG (LORTAB) TAB PO PRN ×3 (07:53→19:25)
[2019-07-21] MEDS: TRIAMCINOLONE 0.1% CR (KENALOG) 80 GM TUBE TP SCH ×2 (07:55→20:34)
[2019-07-21] MEDS: polyethylene glycoL POWDER 17 GM (MIRALAX) PACK PO SCH ×2 (07:55→20:14)
[2019-07-21] MEDS: NYSTATIN CREAM (MYCOSTATIN) 30 GM TUBE TP SCH ×2 (07:56→20:33)
--- NOTE | 2019-07-21 12:54 | Discharge Summary ---
Diagnosis/Chief Complaint Date of Admission Jul 05, 2019 at 09:30 Date of Discharge Discharge Date: Jul 21, 2019 Discharge Diagnosis Assessment: Lumbar stenosis with radiculopathy post op with severe debility PNA acute Sepsis DIONNE on biPAP HTN CAD Plan: IRF protocol but slow process 25/12 due to PNA and severe debility BM regimen to maintain Patient refuses a lot of meds and interventions Much improved but difficult to ascertain if he can gain more in order to go home Dispo home on Sat Fleets prn daily (1) Stenosis, spinal, lumbar (2) Coronary artery disease Status: Acute (3) Pneumonia Status: Acute (4) Lumbar radiculopathy (5) Sepsis (6) Leukocytosis (7) Non-compliance (8) Constipation (9) Hypertension (10) DIONNE treated with BiPAP (11) Lactic acid acidosis Discharge Summary Discharge Physical Examination Allergies: Coded Allergies: No Known Drug Allergies (Unverified , 08/13/16) Vitals & I&Os Vital Signs Date Time Temp Pulse Resp B/P (MAP) Pulse Ox O2 Delivery O2 Flow Rate FiO2 07/21/19 08:00 Room Air 07/21/19 05:01 36.3 74 18 135/77 (96) 96 General Appearance: Alert, Oriented X3, Cooperative Respiratory: Clear to Auscultation Cardiovascular: Regular Rate Neuro: Normal Gait, Normal Speech, Strength at 5/5 X4 Ext Psych/Mental Status: Mental Status NL Hospital Course Was the Problem List Reviewed?: Yes Hospital course: patient had an uneventful course for 17 days after failing DC after lumbar spine surgery and suffering a fall at home and going to ER and dx with PNA and sepsis and required close monitoring from Dr Tellez and other specialties. Patient's narcotic bowel resolved and he was able to slowly regain his activity and stamina and return home with his . Patient participated in all therapies and improved dramatically. Labs (last 24 hrs) Laboratory Tests 07/05/19 13:14: Lactic Acid Level 3.64*H 07/05/19 14:21: Sodium Level 131L, Potassium Level 3.3L, Chloride Level 100, Carbon Dioxide Level 21, Anion Gap 10, Blood Urea Nitrogen 13, Creatinine 0.85, Estimat Glomerular Filtration Rate > 60, BUN/Creatinine Ratio 15, Glucose Level 143H, Calcium Level 8.4L 07/05/19 15:14: Lactic Acid Level 1.20 07/06/19 04:22: Sodium Level 132L, Potassium Level 3.3L, Chloride Level 105, Carbon Dioxide Level 19L, Anion Gap 8, Blood Urea Nitrogen 9, Creatinine 0.71, Estimat Glomerular Filtration Rate > 60, BUN/Creatinine Ratio 13, Glucose Level 131H, Calcium Level 7.7L, White Blood Count 10.7, Red Blood Count 3.00L, Hemoglobin 10.0L, Hematocrit 29L, Mean Corpuscular Volume 96, Mean Corpuscular Hemoglobin 33, Mean Corpuscular Hemoglobin Concent 35, Red Cell Distribution Width 13.0, Platelet Count 256, Mean Platelet Volume 9.2, Neutrophils (%) (Auto) 76H, Lymphocytes (%) (Auto) 11L, Monocytes (%) (Auto) 12, Eosinophils (%) (Auto) 1, Basophils (%) (Auto) 0, Neutrophils # (Auto) 8.1H, Lymphocytes # (Auto) 1.2, Monocytes # (Auto) 1.3H, Eosinophils # (Auto) 0.1, Basophils # (Auto) 0.0, Corrected Calcium 8.5, Phosphorus Level 1.8L, Magnesium Level 2.1, Total Bilirubin 0.8, Aspartate Amino Transf (AST/SGOT) 23, Alanine Aminotransferase (ALT/SGPT) 22, Alkaline Phosphatase 55, Total Protein 5.5L, Albumin 3.0L 07/06/19 11:00: Vancomycin Level Trough 14.6 07/07/19 06:10: White Blood Count 13.0H, Red Blood Count 3.22L, Hemoglobin 10.5L, Hematocrit 31L , Mean Corpuscular Volume 96, Mean Corpuscular Hemoglobin 33, Mean Corpuscular Hemoglobin Concent 34, Red Cell Distribution Width 13.6, Platelet Count 311, Mean Platelet Volume 9.2, Neutrophils (%) (Auto) 68, Lymphocytes (%) (Auto) 16, Monocytes (%) (Auto) 13H, Eosinophils (%) (Auto) 3, Basophils (%) (Auto) 0, Neutrophils # (Auto) 8.9H, Lymphocytes # (Auto) 2.0, Monocytes # (Auto) 1.7H, Eosinophils # (Auto) 0.4H, Basophils # (Auto) 0.0, Sodium Level 134L, Potassium Level 3.8, Chloride Level 104, Carbon Dioxide Level 20L, Anion Gap 10, Blood U [place] Nitrogen 8, Creatinine 0.82, Estimat Glomerular Filtration Rate > 60, BUN/Creatinine Ratio 10, Glucose Level 120H, Calcium Level 8.1L, Phosphorus Level 2.3, Magnesium Level 2.2 07/07/19 09:30: Urine Color YELLOW, Urine Clarity CLEAR, Urine pH 5.5, Urine Specific [place] >=1.030, Urine Protein TRACE, Urine Glucose (UA) TRACEH, Urine Ketones NEGATIVE, Urine Nitrite NEGATIVE, Urine Bilirubin NEGATIVE, Urine Urobilinogen 0.2, Urine Leukocyte Esterase NEGATIVE, Urine RBC (Auto) NEGATIVE, Urine RBC NONE, Urine WBC 0-2, Urine Squamous Epithelial Cells 0-2, Urine Crystals NONE, Urine Bacteria NEGATIVE, Urine Casts NONE, Urine Mucus SMALLH, Urine Culture Indicated NO 07/08/19 05:10: White Blood Count 12.4H, Red Blood Count 3.01L, Hemoglobin 10.0L, Hematocrit 29L , Mean Corpuscular Volume 97, Mean Corpuscular Hemoglobin 33, Mean Corpuscular Hemoglobin Concent 34, Red Cell Distribution Width 13.3, Platelet Count 323, Mean Platelet Volume 9.2, Neutrophils (%) (Auto) 72, Lymphocytes (%) (Auto) 12, Monocytes (%) (Auto) 11, Eosinophils (%) (Auto) 5, Basophils (%) (Auto) 0, Ne utrophils # (Auto) 8.9H, Lymphocytes # (Auto) 1.4, Monocytes # (Auto) 1.3H, Eosinophils # (Auto) 0.6H, Basophils # (Auto) 0.0, Sodium Level 134L, Potassium Level 3.5L, Chloride Level 105, Carbon Dioxide Level 19L, Anion Gap 10, Blood Urea Nitrogen 7, Creatinine 0.80, Estimat Glomerular Filtration Rate > 60, BUN/Creatinine Ratio 9, Glucose Level 174H, Calcium Level 8.2L, Phosphorus Level 2.1L, Magnesium Level 2.1 07/09/19 06:15: White Blood Count 11.2H, Red Blood Count 3.01L, Hemoglobin 9.9L, Hematocrit 29L, Mean Corpuscular Volume 96, Mean Corpuscular Hemoglobin 33, Mean Corpuscular Hemoglobin Concent 34, Red Cell Distribution Width 13.7, Platelet Count 365, Mean Platelet Volume 9.0, Neutrophils (%) (Auto) 71, Lymphocytes (%) (Auto) 11L, Monocytes (%) (Auto) 14H, Eosinophils (%) (Auto) 5, Basophils (%) (Auto) 0, Neutrophils # (Auto) 7.9H, Lymphocytes # (Auto) 1.2, Monocytes # (Auto) 1.5H, Eosinophils # (Auto) 0.5H, Basophils # (Auto) 0.0, Sodium Level 136, Potassium Level 3.4L, Chloride Level 106, Carbon Dioxide Level 22, Anion Gap 8, Blood Urea Nitrogen 6L, Creatinine 0.75, Estimat Glomerular Filtration Rate > 60, BUN/Creatinine Ratio 8, Glucose Level 122H, Calcium Level 8.5, Corrected Calcium 9.3, Total Bilirubin 0.6, Aspartate Amino Transf (AST/SGOT) 28, Alanine Aminotransferase (ALT/SGPT) 35, Alkaline Phosphatase 62, Total Protein 5.7L, Albumin 3.0L 07/16/19 06:50: White Blood Count 8.8, Red Blood Count 3.15L, Hemoglobin 10.0L, Hematocrit 31L, Mean Corpuscular Volume 98, Mean Corpuscular Hemoglobin 32, Mean Corpuscular Hemoglobin Concent 33, Red Cell Distribution Width 13.7, Platelet Count 490H, Mean Platelet Volume 9.0, Neutrophils (%) (Auto) 67, Lymphocytes (%) (Auto) 19, Monocytes (%) (Auto) 12, Eosinophils (%) (Auto) 3, Basophils (%) (Auto) 0, Neutrophils # (Auto) 5.8, Lymphocytes # (Auto) 1.6, Monocytes # (Auto) 1.0, Eosinophils # (Auto) 0.2, Basophils # (Auto) 0.0, Sodium Level 134L, Potassium Level 4.2, Chloride Level 101, Carbon Dioxide Level 23, Anion Gap 10, Blood Urea Nitrogen 9, Creatinine 0.80, Estimat Glomerular Filtration Rate > 60, BUN/Creatinine Ratio 11, Glucose Level 113H, Calcium Level 9.0, Corrected Calcium 9.6, Total Bilirubin 0.5, Aspartate Amino Transf (AST/SGOT) 35H, Alanine Aminotransferase (ALT/SGPT) 29, Alkaline Phosphatase 121, Total Protein 6.2L, Albumin 3.3 Pending Labs Laboratory Tests 07/05/19 13:14: Lactic Acid Level 3.64 07/05/19 14:21: Sodium Level 131, Potassium Level 3.3, Chloride Level 100, Carbon Dioxide Level 21, Anion Gap 10, Blood Urea Nitrogen 13, Creatinine 0.85, Estimat Glomerular Filtration Rate > 60, BUN/Creatinine Ratio 15, Glucose Level 143, Calcium Level 8.4 07/05/19 15:14: Lactic Acid Level 1.20 07/06/19 04:22: Sodium Level 132, Potassium Level 3.3, Chloride Level 105, Carbon Dioxide Level 19, Anion Gap 8, Blood Urea Nitrogen 9, Creatinine 0.71, Estimat Glomerular Filtration Rate > 60, BUN/Creatinine Ratio 13, Glucose Level 131, Calcium Level 7.7, White Blood Count 10.7, Red Blood Count 3.00, Hemoglobin 10.0, Hematocrit 29, Mean Corpuscular Volume 96, Mean Corpuscular Hemoglobin 33, Mean Corpuscular Hemoglobin Concent 35, Red Cell Distribution Width 13.0, Platelet Count 256, Mean Platelet Volume 9.2, Neutrophils (%) (Auto) 76, Lymphocytes (%) (Auto) 11, Monocytes (%) (Auto) 12, Eosinophils (%) (Auto) 1, Basophils (%) (Auto) 0, Neutrophils # (Auto) 8.1, Lymphocytes # (Auto) 1.2, Monocytes # (Auto) 1.3, Eosinophils # (Auto) 0.1, Basophils # (Auto) 0.0, Corrected Calcium 8.5, Phosphorus Level 1.8, Magnesium Level 2.1, Total Bilirubin 0.8, Aspartate Amino Transf (AST/SGOT) 23, Alanine Aminotransferase (ALT/SGPT) 22, Alkaline Phosphatase 55, Total Protein 5.5, Albumin 3.0 07/06/19 11:00: Vancomycin Level Trough 14.6 07/07/19 06:10: White Blood Count 13.0, Red Blood Count 3.22, Hemoglobin 10.5, Hematocrit 31, Mean Corpuscular Volume 96, Mean Corpuscular Hemoglobin 33, Mean Corpuscular Hemoglobin Concent 34, Red Cell Distribution Width 13.6, Platelet Count 311, Mean Platelet Volume 9.2, Neutrophils (%) (Auto) 68, Lymphocytes (%) (Auto) 16, Monocytes (%) (Auto) 13, Eosinophils (%) (Auto) 3, Basophils (%) (Auto) 0, Neutrophils # (Auto) 8.9, Lymphocytes # (Auto) 2.0, Monocytes # (Auto) 1.7, Eosinophils # (Auto) 0.4, Basophils # (Auto) 0.0, Sodium Level 134, Potassium Level 3.8, Chloride Level 104, Carbon Dioxide Level 20, Anion Gap 10, Blood Urea Nitrogen 8, Creatinine 0.82, Estimat Glomerular Filtration Rate > 60, BUN/Creatinine Ratio 10, Glucose Level 120, Calcium Level 8.1, Phosphorus Level 2.3, Magnesium Level 2.2 07/07/19 09:30: Urine Color YELLOW, Urine Clarity CLEAR, Urine pH 5.5, Urine Specific [place] >=1.030, Urine Protein TRACE, Urine Glucose (UA) TRACE, Urine Ketones NEGATIVE, Urine Nitrite NEGATIVE, Urine Bilirubin NEGATIVE, Urine Urobilinogen 0.2, Urine Leukocyte Esterase NEGATIVE, Urine RBC (Auto) NEGATIVE, Urine RBC NONE, Urine WBC 0-2, Urine Squamous Epithelial Cells 0-2, Urine Crystals NONE, Urine Ba cteria NEGATIVE, Urine Casts NONE, Urine Mucus SMALL, Urine Culture Indicated NO 07/08/19 05:10: White Blood Count 12.4, Red Blood Count 3.01, Hemoglobin 10.0, Hematocrit 29, Mean Corpuscular Volume 97, Mean Corpuscular Hemoglobin 33, Mean Corpuscular Hemoglobin Concent 34, Red Cell Distribution Width 13.3, Platelet Count 323, Mean Platelet Volume 9.2, Neutrophils (%) (Auto) 72, Lymphocytes (%) (Auto) 12, Monocytes (%) (Auto) 11, Eosinophils (%) (Auto) 5, Basophils (%) (Auto) 0, Neutrophils # (Auto) 8.9, Lymphocytes # (Auto) 1.4, Monocytes # (Auto) 1.3, Eosinophils # (Auto) 0.6, Basophils # (Auto) 0.0, Sodium Level 134, Potassium Level 3.5, Chloride Level 105, Carbon Dioxide Level 19, Anion Gap 10, Blood Urea Nitrogen 7, Creatinine 0.80, Estimat Glomerular Filtration Rate > 60, BUN/Creatinine Ratio 9, Glucose Level 174, Calcium Level 8.2, Phosphorus Level 2.1, Magnesium Level 2.1 07/09/19 06:15: White Blood Count 11.2, Red Blood Count 3.01, Hemoglobin 9.9, Hematocrit 29, Mean Corpuscular Volume 96, Mean Corpuscular Hemoglobin 33, Mean Corpuscular Hemoglobin Concent 34, Red Cell Distribution Width 13.7, Platelet Count 365, Mean Platelet Volume 9.0, Neutrophils (%) (Auto) 71, Lymphocytes (%) (Auto) 11, Monocytes (%) (Auto) 14, Eosinophils (%) (Auto) 5, Basophils (%) (Auto) 0, Neutrophils # (Auto) 7.9, Lymphocytes # (Auto) 1.2, Monocytes # (Auto) 1.5, Eosinophils # (Auto) 0.5, Basophils # (Auto) 0.0, Sodium Level 136, Potassium Level 3.4, Chloride Level 106, Carbon Dioxide Level 22, Anion Gap 8, Blood Urea Nitrogen 6, Creatinine 0.75, Estimat Glomerular Filtration Rate > 60, BUN/Creatinine Ratio 8, Glucose Level 122, Calcium Level 8.5, Corrected Calcium 9.3, Total Bilirubin 0.6, Aspartate Amino Transf (AST/SGOT) 28, Alanine Aminotransferase (ALT/SGPT) 35, Alkaline Phosphatase 62, Total Protein 5.7, Albumin 3.0 07/16/19 06:50: White Blood Count 8.8, Red Blood Count 3.15, Hemoglobin 10.0, Hematocrit 31, Mean Corpuscular Volume 98, Mean Corpuscular Hemoglobin 32, Mean Corpuscular Hemoglobin Concent 33, Red Cell Distribution Width 13.7, Platelet Count 490, Mean Platelet Volume 9.0, Neutrophils (%) (Auto) 67, Lymphocytes (%) (Auto) 19, Monocytes (%) (Auto) 12, Eosinophils (%) (Auto) 3, Basophils (%) (Auto) 0, N eutrophils # (Auto) 5.8, Lymphocytes # (Auto) 1.6, Monocytes # (Auto) 1.0, Eosinophils # (Auto) 0.2, Basophils # (Auto) 0.0, Sodium Level 134, Potassium Level 4.2, Chloride Level 101, Carbon Dioxide Level 23, Anion Gap 10, Blood Urea Nitrogen 9, Creatinine 0.80, Estimat Glomerular Filtration Rate > 60, BUN/Creatinine Ratio 11, Glucose Level 113, Calcium Level 9.0, Corrected Calcium 9.6, Total Bilirubin 0.5, Aspartate Amino Transf (AST/SGOT) 35, Alanine Aminotransferase (ALT/SGPT) 29, Alkaline Phosphatase 121, Total Protein 6.2, Albumin 3.3 Discharge Home Medications: Active Scripts Active Thera-M Tablet (Multivits,Ca,Minerals/Iron/FA) 1 Each Tablet 1 Ea PO DAILY@0700 Triamcinolone Acetonide 0.1% Cream (Triamcinolone Acet) 15 Gm Cr 0 Gm TP BID Nystatin 15 Gm Cream..g. 0 Gm TP BID Senna-Time S Tablet (Sennosides/Docusate Sodium) 1 Each Tablet 1 Ea PO BID Furosemide 20 Mg Tablet 20 Mg PO BID@07,17 Klor-Con 10 (Potassium Chloride) 10 Meq Tablet.er 10 Meq PO BID WITH MEALS Cyclobenzaprine HCl 10 Mg Tablet 10 Mg PO TID PRN Loratadine 10 Mg Tablet 10 Mg PO DAILY Hydrocodone-Acetamin 5-325 mg (Hydrocodone/Acetaminophen) 1 Each Tablet 1-2 Tab PO Q4H PRN Reported Famotidine 20 Mg Tablet 20 Mg PO DAILY PRN Benadryl (Diphenhydramine HCl) 25 Mg Capsule 25-50 Mg PO HS PRN Advil (Ibuprofen) 200 Mg Tablet 400 Mg PO TID PRN Tylenol Extra Strength (Acetaminophen) 500 Mg Tablet 500-1,000 Mg PO Q4H PRN Aspirin EC (Aspirin) 81 Mg Tablet.dr 81 Mg PO DAILY Ventolin Hfa (Albuterol Sulfate) 1 Puff Puff 2 Puff INH QID PRN 1 PUFF = 90 MCG Montelukast Sodium 10 Mg Tablet 10 Mg PO HS Carvedilol 3.125 Mg Tablet 3.125 Mg PO BID Ipratropium [place] 30 Ml [place] 2 Sprays NS QID PRN Atorvastatin Calcium 40 Mg Tablet 40 Mg PO DAILY Advair 250-50 Diskus (Fluticasone/Salmeterol) 1 Each Blst.w.dev 1 Puff IH BID Losartan Potassium 50 Mg Tablet 50 Mg PO DAILY Instructions to patient/family Please see electronic discharge instructions given to patient. Diagnosis/Problems Diagnosis/Problems (1) Stenosis, spinal, lumbar (2) Coronary artery disease Status: Acute (3) Pneumonia Status: Acute (4) Lumbar radiculopathy (5) Sepsis (6) Leukocytosis (7) Non-compliance (8) Constipation (9) Hypertension (10) DIONNE treated with BiPAP (11) Lactic acid acidosis Clinical Quality Measures DVT/VTE Risk/Contraindication: Risk Factor Score Per Nursin RFS Level Per Nursing on Admit: 4+=Very High AYDE FRANCO DO Jul 21, 2019 12:54
[2019-07-21 18:16] VITALS: BP 118/77
[2019-07-21] MEDS: MONTELUKAST 10 MG (SINGULAIR) TAB PO SCH (20:31)
[2019-07-22] MEDS: HYDROcodone/APAP 5 MG/325 MG (LORTAB) TAB PO PRN ×4 (00:05→16:08)
[2019-07-22] MEDS: NYSTATIN ORAL SUSP 5 ML UDC PO SCH ×3 (02:46→14:48)
[2019-07-22] MEDS: ADVAIR 250 MCG/50 MCG (NON-FORMULARY) IH SCH ×2 (03:45→08:50)
[2019-07-22] MEDS: KCL 10 MEQ TAB (MICRO K) PO SCH (05:43)
[2019-07-22] MEDS: MULTIVIT W/MINERALS TAB (THERAGRAN M) PO SCH (05:43)
[2019-07-22] MEDS: FUROSEMIDE 20 MG (LASIX) TAB PO SCH (05:43)
[2019-07-22 05:45] VITALS: BP 112/70
[2019-07-22] MEDS: NYSTATIN CREAM (MYCOSTATIN) 30 GM TUBE TP SCH (09:44)
[2019-07-22] MEDS: CARVEDILOL 3.125 MG (COREG) TABLET PO SCH (09:44)
[2019-07-22] MEDS: LOSARTAN 50 MG (COZAAR) TAB PO SCH (09:44)
[2019-07-22] MEDS: TRIAMCINOLONE 0.1% CR (KENALOG) 80 GM TUBE TP SCH (09:44)
[2019-07-22] MEDS: FAMOTIDINE 20 MG (PEPCID) TABLET PO SCH (09:44)
[2019-07-22] MEDS: LORATADINE (CLARITIN) 10 MG TAB PO SCH (09:44)
[2019-07-22] MEDS: SENNA W/DOCUSATE (SENOKOT S) TABLET PO SCH (09:44)
[2019-07-22] MEDS: DOCUSATE SODIUM 100 MG (COLACE) CAP PO SCH (09:44)
[2019-07-22] MEDS: polyethylene glycoL POWDER 17 GM (MIRALAX) PACK PO SCH (09:45)
--- NOTE | 2019-07-23 09:58 | Therapy Team Discharge Summary ---
Therapy Discharge Summary Discharge Recommendations Date of Discharge Jul 22, 2019 at 16:20 Physical Therapy This patient was admitted to ARU post acute stay and discharge home that failed post lumbar surgery. He was admitted to ARU with dx of debility. Prior to his acute hospital stay, he was mod indep with functional mobility and a community ambulator. Upon admission to ARU, pt was max to dependent with bed mobility, min assist with sit to stand and ambulated short distances with min assist; he was unable to attempt steps. Treatment focused on functional strength, balance and activity tolerance to promote bed mobility, transfers and gait. At discharge, pt is mod indep with bed mobiltiy, transfers and gait. He does still require SBA onstairs. He has made excellent progress and has achieved goals to a satisfactory level. Pt to discharge home with [facility] PT recommended. DC from ARU. Occupational Therapy Decreased Activ Tolerance, Impaired I ADL's, Impaired Self-Care Skills PT Fci Goals Fci Goals PT Veneer Glue Jointer Feedback Goals Time Frame: Jul 25, 2019 Roll Left to Right (QC): 6 (met) Sit to Lying (QC): 6 (met) Lying-Sitting on Side/Bed(QC): 6 (met) Sit to Stand (QC): 6 (met) Chair/Wur-ad-Odrqp Xfer(QC): 6 (met) Car Transfer (QC): 5 (met) Does the Patient Walk: Yes Walk 10 feet (QC): 6 (met) Walk 10ft-Uneven Surface(QC): 6 (met) Walk 50ft with 2 Turns (QC): 6 (met) Walk 150 ft (QC): 6 (met) Does the Pt use WC or Scooter?: No 1 Step (curb) (QC): 6 (scored 4) 4 Steps (QC): 6 (scored 4) 12 Steps (QC): 9 Picking up an Object (QC): 88 OT Fci Goals Fci Goals Time Frame: Jul 19, 2019 Eating (FIM): 6 Eating (QC): 6 (met) Oral Hygiene (QC): 6 (met) Shower/Bathe Self (QC): 6 (met) Upper Body Dressing (QC): 6 (met) Lower Body Dressing (QC): 6 (met) On/Off Footwear (QC): 6 (met) Toileting(FIM): 6 Toileting Hygiene (QC): 6 (met) Toilet/Commode Transfer (QC): 6 Additional Goals: 1-Demonstrate ADL Tasks, 2-Verbalize Understanding, 3- ImproveStrength/Melissa 1=Demonstrate adherence to instructed precautions during ADL tasks. 2=Patient will verbalize/demonstrate understanding of assistive devices/modifications for ADL. 3=Patient will improve strength/tolerance for activity to enable patient to perform ADL's. BRANDEE VELAZQUEZ PT Jul 23, 2019 09:58
--- NOTE | 2019-07-25 12:49 | Therapy Team Discharge Summary ---
Therapy Discharge Summary Discharge Recommendations Date of Discharge Jul 22, 2019 at 16:20 Occupational Therapy Pt admits to ARU with L3-5 DLIP, PSDF. Pt was max A for LB/ footwear, showering with min A and toilet hygiene with min A. Pt and OT work towards increased IND with ADLs through UB exercise, ADL/ AE training, endurance and pain management techniques. Pt limited by pain and motivation. Pt d/c's with all LTG's met, ADLs IND to mod I. pt d/c's with recommendations of hip kit. Decreased Activ Tolerance, Impaired I ADL's, Impaired Self-Care Skills PT Assisted Goals Marketing Representative Goals PT Marketing Representative Goals Time Frame: Jul 25, 2019 Roll Left to Right (QC): 6 (met) Sit to Lying (QC): 6 (met) Lying-Sitting on Side/Bed(QC): 6 (met) Sit to Stand (QC): 6 (met) Chair/Hox-qk-Rytky Xfer(QC): 6 (met) Car Transfer (QC): 5 (met) Does the Patient Walk: Yes Walk 10 feet (QC): 6 (met) Walk 10ft-Uneven Surface(QC): 6 (met) Walk 50ft with 2 Turns (QC): 6 (met) Walk 150 ft (QC): 6 (met) Does the Pt use WC or Scooter?: No 1 Step (curb) (QC): 6 (scored 4) 4 Steps (QC): 6 (scored 4) 12 Steps (QC): 9 Picking up an Object (QC): 88 OT Assisted Goals Marketing Representative Goals Time Frame: Jul 19, 2019 Eating (FIM): 6 Eating (QC): 6 (met) Oral Hygiene (QC): 6 (met) Shower/Bathe Self (QC): 6 (met) Upper Body Dressing (QC): 6 (met) Lower Body Dressing (QC): 6 (met) On/Off Footwear (QC): 6 (met) Toileting(FIM): 6 Toileting Hygiene (QC): 6 (met) Toilet/Commode Transfer (QC): 6 Additional Goals: 1-Demonstrate ADL Tasks, 2-Verbalize Understanding, 3-ImproveStrength/Melissa 1=Demonstrate adherence to instructed precautions during ADL tasks. 2=Patient will verbalize/demonstrate understanding of assistive devices/modifications for ADL. 3=Patient will improve strength/tolerance for activity to enable patient to perform ADL's. YASIR VALLADARES OTR Jul 25, 2019 12:49
== END 2019-07-22 16:20 | disposition home or self-care (01) | DRG 551 ==
PROVIDERS: ADMIT Internal Medicine; ATTEND Internal Medicine
DX: M54.16 Radiculopathy, lumbar region (principal); Z47.89 Encounter for other orthopedic aftercare; A41.9 Sepsis, unspecified organism; J18.9 Pneumonia, unspecified organism; E87.2 Acidosis; E87.1 Hypo-osmolality and hyponatremia; J44.9 Chronic obstructive pulmonary disease, unspecified; G47.33 Obstructive sleep apnea (adult) (pediatric); K59.03 Drug induced constipation; B37.0 Candidal stomatitis; I25.10 Atherosclerotic heart disease of native coronary artery without angina pectoris; I10 Essential (primary) hypertension; E78.5 Hyperlipidemia, unspecified; K21.9 Gastro-esophageal reflux disease without esophagitis; I07.1 Rheumatic tricuspid insufficiency; E66.01 Morbid (severe) obesity due to excess calories; Z68.38 Body mass index [BMI] 38.0-38.9, adult; N40.0 Benign prostatic hyperplasia without lower urinary tract symptoms; E87.6 Hypokalemia; E83.39 Other disorders of phosphorus metabolism; R60.0 Localized edema; Z91.19 Patient's noncompliance with other medical treatment and regimen; I25.2 Old myocardial infarction; Z87.891 Personal history of nicotine dependence; Z95.5 Presence of coronary angioplasty implant and graft; Z90.49 Acquired absence of other specified parts of digestive tract
CPT/HCPCS: 36415; 36569; 71045; 76937; 80048; 80053; 80202; 81000; 83605; 83735; 84100; 85025; 94640; 94760

== ENCOUNTER 2020-01-17 05:44 | Outpatient (RCR) | payer MEDICARE, OTHER ==
[~2020-01-17] VITALS: Ht 175 cm; Wt 109.0 kg
[~2020-01-17 05:44] MED LIST changes: +ACET-2267 PO; +CYCL10TA9 PO; +DIPH25CA79 PO; +FURO20TA4 PO; -HYDR-3812 PO; +IBUP-30 PO; +LORA10TA7 PO; -MONT10TA24 PO; +MONT10TA26 PO; +MULT1TAB63 PO; +NYST15CR TP; +POTA10TA6 PO; +RT-ALBUINH INH; +SENN-20 PO; +TR1C15 TP
== END 2020-01-17 13:12 | disposition home or self-care (01) ==
LOC: PREOP 05:44
PROVIDERS: ATTEND Internal Medicine
DX: Z01.818 Encounter for other preprocedural examination (principal)

== ENCOUNTER 2020-01-24 07:09 | Day surgery (SDC) | payer MEDICARE, OTHER ==
--- NOTE | 2020-01-11 08:03 | HISTORY AND PHYSICAL ---
DATE OF SERVICE: 01/24/2020 HISTORY OF PRESENT ILLNESS: The patient is a 74-year-old white male who presented to the office complaining of rectal bleeding. He had not been in for several years and it is not clear as to whether or not he has been seeing another provider. He had multilevel lumbar back fusion surgery in June of this year and had a laurel course following. He states that now he literally has a screw loose, has been having some localized low back pain that will likely have to reoperate, reportedly more minor procedure. He states that over the past several weeks he has had some episodes of painless small volume bright red blood per rectum. He had a past history of colonoscopy in 2010 at which point he had two tubular adenomas removed, one from the distal rectum and the other from the ascending colon. He has not had colonoscopy since. PAST MEDICAL HISTORY: Significant for known COPD from past smoking, quit number of years ago. He has history of obesity and hypertension. He also has a history of hyperlipidemia. MEDICATIONS ON ADMISSION: Baby aspirin daily, atorvastatin 40 mg daily, losartan 50 mg daily, carvedilol 3.125 mg b.i.d. Aprodine, combination antihistamine pseudoephedrine product that he takes one q.12 hours, famotidine 20 mg as needed, and tramadol 50 mg as needed for back pain. Inhaler therapy includes Advair 250/50 one inhalation twice daily, Ventolin HFA 2 puffs q.4 hours p.r.n. and ipratropium nasal spray four times daily as needed 0.06%. FAMILY HISTORY: He is not aware of any family history of colon cancer. PHYSICAL EXAMINATION: GENERAL: Reveals an overweight white male, moving slowly, appearing to be in mild to moderate acute distress when ambulating but comfortable at rest due to back pain. VITAL SIGNS: Weight was down 6 pounds from last office visit two years ago at 225.8, blood pressure 142/82, heart rate 86 and regular. O2 saturation 97% on room air. CHEST: Clear to auscultation although he has some diminished breath sounds posteriorly. No dullness to percussion is noted. CARDIOVASCULAR: Reveals a regular rate and rhythm, occasional asymptomatic prematurity, 1 to 2/6 systolic ejection murmur heard best at left lower sternal border without S3, S4, or diastolic murmur. No pulses, parvus or tardus is noted. ABDOMEN: Soft, supple without mass, organomegaly or tenderness, although organomegaly is difficult to quantify due to obesity. EXTREMITIES: Reveal no cyanosis, clubbing or edema. ASSESSMENT AND PLAN: Due to past history of colon polyps and current low volume rectal bleeding, the patient is set up for diagnostic colonoscopy. He has a Mallampati 3 pharyngeal configuration and ASA class III. So, we will be doing this under anesthesia with Diprivan. Prep instructions were given and questions were answered. He was advised to discontinue aspirin one week prior to this procedure. Job ID: [id number] DocumentID: [id number] Dictated Date: 01/03/2020 19:06:20 [place] Trimmer Date: 01/03/2020 19:35:20 Dictated By: FABY CR MD
[~2020-01-24] VITALS: Ht 175 cm; Wt 109.0 kg
--- OUTSIDE RECORDS SUMMARY | 2020-01-24 07:15 | XMS REPORT ---
Author Author [employer] [facility] [employer] [facility] [employer] [facility] [employer] Address [address] [address] Care Team Providers Care Kier Drier Name Role Phone ANABELLE BRAND Joni Unavailable NO, LOCAL PHYSICIAN Unavailable Unavailable DELMAN DO, LUKE B Unavailable Unavailable FRANCO DO, AYDE Unavailable Unavailable FRANCO DO, AYDE Unavailable Unavailable DANIEL SAEZ, KULDIP Chaidez Unavailable Unavailable ADRYAN MEMBRENO MD Unavailable Unavailable IRASEMA BARTON BUSINESS ANALYST MANAGER Unavailable Unavailable ZENOBIA DO, ALEKSANDRA K Unavailable Unavailable DANTE SAEZ, JULIO CÉSAR Lemus Unavailable Unavailable DANTE SAEZ, JULIO CÉSAR Lemus Unavailable Unavailable Raya, Carolee PCP Raya, Carolee PCP Raya, Carolee Unavailable Unavailable Raya, Carolee Unavailable Unavailable Raya, Carolee Unavailable Unavailable ARMAND HARRISON MD Unavailable Unavailable RAYA DO, CAROLEE Unavailable Unavailable Raya, Carolee PCP ANAHI NAVA Unavailable Unavailable CARLOS, CHRISTIAN Unavailable Unavailable CARLOS, CHRISTIAN Unavailable Unavailable CARLOS, CHRISTIAN Unavailable Unavailable RAYA, CAROLEE PCP BROWN, ANABELLE Unavailable Unavailable BROWN, ANABELLE Unavailable Unavailable BROWN, ANABELLE Unavailable Unavailable JOAQUIN NATION Unavailable Unavailab IRASEMA Cadena BUSINESS ANALYST MANAGER Unavailable Unavailable DELMAN DO, LUKE B Unavailable Unavailable FRANCO DO, AYDE Unavailable Unavailable FRANCO DO, AYDE Unavailable Unavailable ADRYAN MEMBRENO MD Unavailable Unavailable CLAY BROWN APRN Unavailable Unavailable CARLOS, CHRISTIAN H HORSE FARM MANAGER Unavailable Unavailable SANDRINE JIMENEZ MD Unavailable Unavailable SANDRINE JIMENEZ MD Unavailable Unavailable THEA SWANSON DO Unavailable Unavailable THEA SWANSON DO Unavailable Unavailable SAVANNA MOULTON MD Unavailable Unavailable RUSSELL MORRIS MD Unavailable Unavailable FRANCO DO, AYDE S Unavailable Unavailable FRANCO DO, AYDE S Unavailable Unavailable FABY CR MD Unavailable Unavailable Unavailable Unavailable Unavailable Unavailable Unavailable Unavailable Unavailable Unavailable Unavailable Unavailable Allergies Allergy Reported Allergen(s) Allergy Type Date of Reaction(s) Care Facility Classificati Onset Provider on Unclassified No Known Drug Allergies DA 03-19-2008 JHONNY Coates (20 sources) MD Available ([id number]) Unclassified NO KNOWN DRUG ALLERGIES UNKNOWN [facility] (20 sources) [facility] of [facility] ([id number]) Encounters Encounter Date Encounter Type Encounter Diagnosis Care Provider Facility Start: Patient encounter FABY CR MD [facility] 01-17-2020 procedure [facility] Start: Evaluation and AYDE S FRANCO DO [facility] isti 07-05-2019 management of [facility] inpatient End: 07-22-2019 Start: Patient encounter AYDE S FRANCO DO [facility] 07-05-2019 procedure [facility] End: 07-22-2019 Start: Emergency department RUSSELL MORRIS MD [facility] 07-05-2019 patient visit [facility] End: 07-05-2019 Start: Patient encounter RUSSELL MORRIS MD [facility] 07-05-2019 procedure [facility] ([id number]) Start: Evaluation and THEA Rudy SKY DO [facility] 07-02-2019 management of [facility] inpatient End: 07-04-2019 Start: Patient encounter THEA SWANSON DO [facility] 07-02-2019 procedure [facility] ([id number]) End: 07-04-2019 Start: Patient encounter THEA SWANSON DO [facility] 06-25-2019 [facility] ([id number]) Start: Patient encounter [facility] strict #1 05-30-2019 procedure of [facility] ([id number]) End: 05-30-2019 Start: Patient encounter [facility] strict #1 05-23-2019 procedure [facility] ([id number]) End: 05-23-2019 Start: Patient encounter JOAQUIN [facility] isti 05-21-2019 procedure [facility] ([id number]) Start: Patient encounter JOAQUIN [facility] isti 05-17-2019 procedure [facility] ([id number]) Start: Patient encounter [facility] Di strict #1 04-24-2019 procedure of [facility] ([id number]) End: 04-24-2019 Start: Patient encounter [facility] strict #1 03-13-2019 procedure of [facility] ([id number]) End: 03-14-2019 Start: Patient encounter CAROLEE RAYA DO [facility] 02-22-2019 [facility] ([id number]) Start: Patient encounter [facility] strict #1 02-13-2019 procedure of [facility] ([id number]) End: 02-14-2019 Start: Discharged Recurring CAROLEE RAYA Anayajarvis n [facility] 01-29-2019 Work Phone: [facility] ([id number]) End: 02-23-2019 Start: Patient encounter CAROLEE ARYA DO [facility] 01-29-2019 [facility] ([id number]) Start: Patient encounter CAROLEE RAYA DO [facility] 01-29-2019 [facility] ([id number]) End: 02-21-2019 Start: Patient encounter CAROLEE RAYA DO [facility] 01-22-2019 [facility] ([id number]) Start: Patient encounter CAROLEE RAYA DO [facility] 01-17-2019 [facility] ([id number]) Start: Patient encounter CAROLEE RAYA DO [facility] 01-11-2019 [facility] ([id number]) Start: Patient encounter CAROLEE RAYA DO [facility] 01-09-2019 [facility] ([id number]) Start: Patient encounter CAROLEE RAYA DO [facility] 01-04-2019 [facility] ([id number]) Start: Patient encounter CAROLEE RAYA DO [facility] 01-02-2019 [facility] ([id number]) Start: Patient encounter CAROLEE RAYA DO [facility] 12-29-2018 [facility] ([id number]) Start: Patient encounter CAROLEE RAYA DO [facility] 12-13-2018 [facility] ([id number]) Start: Patient encounter CAROLEE RAYA DO [facility] 12-11-2018 [facility] ([id number]) Start: Patient encounter CAROLEE RAYA DO [facility] 12-06-2018 [facility] ([id number]) Start: Office outpatient [facility] 12-05-2018 visit 25 minutes Other Start: Patient encounter CAROLEE RAYA DO [facility] 11-28-2018 [facility] ([id number]) Start: Patient encounter CAROLEE RAYA DO [facility] 11-24-2018 [facility] ([id number]) Start: Patient encounter CAROLEE RAYA DO [facility] 11-22-2018 [facility] ([id number]) Start: Patient encounter CAROLEE RAYA DO [facility] 11-20-2018 [facility] ([id number]) End: 11-22-2018 Start: Patient encounter CAROLEE RAYA DO [facility] 11-16-2018 [facility] ([id number]) Start: Patient encounter CAROLEE RAYA DO [facility] 11-14-2018 [facility] ([id number]) Start: Patient encounter CAROLEE RAYA DO [facility] 10-26-2018 [facility] ([id number]) Start: Patient encounter CAROLEE RAYA DO [facility] 10-26-2018 [facility] ([id number]) Start: Patient encounter CAROLEE RAYA DO [facility] 10-24-2018 [facility] ([id number]) Start: Patient encounter CAROLEE RAYA DO [facility] 10-09-2018 [facility] ([id number]) Start: Office outpatient [facility] 10-04-2018 visit 15 minutes Other Start: Patient encounter CAROLEE RAYA DO Not Avail able ([id number]) 04-23-2019 procedure Start: Patient encounter CAROLEE RAYA DO Not Avail able ([id number]) 09-26-2018 procedure Start: Patient encounter CAROLEE RAYA DO Not Avail able ([id number]) 09-21-2018 procedure Start: Patient encounter CAROLEE RAYA DO Not Avail able ([id number]) 09-18-2018 procedure Start: Patient encounter CAROLEE RAYA DO Not Avail able ([id number]) 09-15-2018 procedure Start: Patient encounter CAROLEE RAYA DO Not Avail able ([id number]) 09-12-2018 procedure Start: Patient encounter CAROLEE RAYA DO Not Avail able ([id number]) 08-24-2018 procedure Start: Office outpatient new [facility] 07-25-2018 30 minutes Other Start: Patient encounter [facility] strict #1 07-12-2018 procedure of [facility] ([id number]) End: 07-13-2018 Start: Patient encounter 03-13-2018 Start: Patient encounter CLAY BROWN [facility] 03-13-2018 procedure [facility] ([id number]) Start: Patient encounter [facility] strict #1 08-26-2017 procedure of [facility] ([id number]) End: 08-27-2017 Start: Evaluation and 07-31-2017 management of inpatient End: 08-03-2017 Start: Patient encounter AYDE FRANCO DO Not Availa ble ([id number]) 07-31-2017 End: 08-03-2017 Start: Emergency department SAVANNA SAIGE Not Avai lable ([id number]) 07-31-2017 patient visit Start: Evaluation and AYDE FRANCO DO [facility] 07-31-2017 management of [facility] inpatient ([id number]) End: 08-03-2017 Start: Evaluation and 07-25-2017 management of inpatient End: 07-27-2017 Start: Patient encounter SANDRINE JIMENEZ MD Not Avail able ([id number]) 07-25-2017 End: 07-27-2017 Start: Emergency department SAVANNA SAIGE Not Avai lable ([id number]) 07-25-2017 patient visit Start: Evaluation and SANDRINE JIMENEZ MD [facility] 07-25-2017 management of [facility] inpatient ([id number]) End: 07-27-2017 Start: Patient encounter [facility] strict #1 07-15-2017 procedure of [facility] ([id number]) End: 07-16-2017 Start: Patient encounter 07-13-2017 Start: Patient encounter CHRISTIAN GONZALEZ [facility]ti 07-13-2017 procedure [facility] ([id number]) Start: Emergency department IRASEMA BARTON [facility] 07-03-2017 patient visit [facility] ([id number]) End: 07-03-2017 Start: Patient encounter [facility] Di strict #1 07-02-2017 procedure of [facility] ([id number]) End: 07-03-2017 Start: Patient encounter [facility] Di strict #1 06-21-2017 procedure of [facility] ([id number]) End: 06-22-2017 Start: Patient encounter [facility] strict #1 05-20-2017 procedure of [facility] ([id number]) End: 05-21-2017 Start: Patient encounter 04-15-2017 Start: Patient encounter JOAQUIN VC [facility] isti 04-15-2017 procedure [facility] ([id number]) Start: Patient encounter [facility] Di strict #1 03-03-2017 procedure of [facility] ([id number]) End: 03-04-2017 Start: Patient encounter LUKE MACK DO Not Availab le ([id number]) 09-06-2016 End: 09-06-2016 Start: Patient encounter LUKE MACK DO [facility]ti 09-06-2016 procedure [facility] ([id number]) End: 09-06-2016 Start: Patient encounter LUKE DELMAN DO [facility] isti 09-02-2016 [facility] ([id number]) End: 09-02-2016 Start: Patient encounter LUKE MACK DO Not Availab le ([id number]) 08-17-2016 End: 08-17-2016 Start: Patient encounter LUKEKENISHA CRUMPMAN DO [facility]ti 08-17-2016 [facility] ([id number]) End: 08-17-2016 Start: Patient encounter LUKE MACK DO Not Availab le ([id number]) 08-12-2016 procedure Start: Patient encounter AYDE BARRERANER DO Not Availa ble ([id number]) 07-15-2016 procedure End: 07-15-2016 Start: Emergency department KULDIP SANCHEZ MD N ot Available ([id number]) 07-15-2016 patient visit Start: Evaluation and AYDE FRANCO DO [facility] 07-14-2016 management of [facility] inpatient ([id number]) End: 07-15-2016 Start: Patient encounter IRASEMA BARTON Not Availab le ([id number]) 07-05-2016 procedure Start: Emergency department IRASEMA BARTON [facility] Via [facility] 07-05-2016 patient visit [facility] ([id number]) End: 07-05-2016 Start: Patient encounter ADRYAN MEMBRENO MD Not Availa ble ([id number]) 10-08-2015 End: 10-09-2015 Start: Patient encounter ADRYAN MEMBRENO MD [facility] 10-08-2015 procedure [facility] ([id number]) End: 10-09-2015 Start: Patient encounter ADRYAN MEMBRENO MD Not Availa ble ([id number]) 09-17-2015 Start: Patient encounter ADRYAN MEMBRENO MD [facility] 09-17-2015 procedure [facility] ([id number]) Start: Patient encounter ADRYAN MEMBRENO MD Not Availa ble ([id number]) 08-21-2013 Start: Evaluation and JULIO CÉSAR HOWELL MD Not Availab le ([id number]) 08-17-2013 management of inpatient End: 08-17-2013 Start: Patient encounter JULIO CÉSAR HOWELL MD Not Avai lable ([id number]) 08-15-2013 Start: Patient encounter ADRYAN MEMBRENO MD Not Availa ble ([id number]) 08-07-2013 Start: Emergency department ARMAND HARRISON MD Not Denice ilable ([id number]) 06-19-2011 patient visit End: 06-19-2011 [id number] Encounter for other LUKE MACK DO [facility] preprocedural [facility] examination ([id number]) Pre-operative JULIO CÉSAR HOWELL MD Not Available (0000 0) examination, unspecified Pre-operative JULIO CÉSAR HOWELL MD Not Available (0000 0) cardiovascular examination Other specified JULIO CÉSAR HOWLEL MD Not Available (0000 0) pre-operative examination Medical Equipment No Information Goals No Information Immunizations The data below is from unstructured sourcesNo immunization records.No immunization records.No immunization records.No immunization records.No immunization records.No immunization records.No immunization records.Not available.Not available.Not available.Not available.Not available. Interventions No Information Medications Medication Drug Dates Sig Sig (Original) Class(es) (Normalized) 200 actuat albuterol beta2-Adre take 1 puff(s) Albuterol Sulfate (Ventolin Hfa) 18 Gm 0.09 mg/actuat metered nergic by inhalation Hfa.aer .ad 2 Puff RESPIRATORY dose inhaler Agonist four times (INHALATION) Fo ur Times Daily as needed (4 sources) daily as needed for Shortness Of Br eath take 1 Ventolin HFA puff(s) by 90 inhalation mcg/actuation every four inhalation HFA hours as aerosol needed inhaler inhale 1 puff (90 mcg) by inhalation route every 4 hours as needed take 1 Ventolin HFA puff(s) by 90 inhalation mcg/actuation every four inhalation HFA hours as aerosol needed inhaler inhale 1 puff (90 mcg) by inhalation route every 4 hours as needed albuterol 0.833 mg/ml / Anticholin take 3 mL by ipratr opium-albuterol 0.5 mg-3 mg(2.5 mg ipratropium bromide ergic, inhalation four base)/3 m L inhalation solution for 0.167 mg/ml inhalant beta2-Adre times daily nebulizat ion inhale 3 milliliters by solution nergic nebulization route 4 times per day (3 sources) Agonist benzonatate 200 mg oral Non-narcot Start: take 1 capsule Benzonatate 200 Mg Capsule 200 Mg ORAL capsule ic 08-03-2017 by mouth every Every 8HRS for Cough 14 Days 60 Cap (1 source) Antitussiv eight hours for 08/03/17 e End: cough 08-17-2017 cetirizine hydrochloride Histamine- take 1 tablet cetir izine 10 mg oral tablet take 1 10 mg oral tablet 1 Receptor by mouth once tablet (10 m g) by oral route once daily (3 sources) Antagonist daily codeine phosphate 2 Opioid take 1 mL by Guaifenesi n/Codeine Phosphate mg/ml / guaiFENesin 20 Agonist mouth every six (Codei ne-Guaifen 10-100 Mg/5 Ml) 120 Ml mg/ml oral solution hours as needed Liquid 5 Ml ORAL Every 6 Hours as needed (1 source) for cough for Cough 60 actuat fluticasone Corticoste Start: take 1 dose by Fluticasone/Salmeterol (Advair 100-50 propionate 0.1 mg/actuat roid, 08-03-2017 inhalation D iskus) 1 Each Blst.w.dev 1 Each / salmeterol 0.05 beta2-Adre twice daily RESPIRATORY (INHALATION) Tw ice A Day 30 mg/actuat dry powder nergic End: Days 1 Ea ch 08/03/17 inhaler Agonist 09-02-2017 (4 sources) take 2 Advair HFA puff(s) by 115-21 inhalation mcg/actuation twice inhalation HFA daily in aerosol the inhaler inhale morning 2 puffs by inhalation route 2 times per day in the morning and evening fluticasone propionate fluticasone propionate (bu lk) 100 % (bulk) 100 % miscellaneous powder use as directed miscellaneous powder (3 sources) 12 hr guaiFENesin 600 mg take 1 tablet Guaifenesin (Mucinex) 600 Mg Tab.er.12h extended release oral by mouth every 600 Mg ORAL Ev jennifer 12 Hours as needed for tablet twelve hours as Congestion (1 source) needed for congestion losartan potassium 50 mg Angiotensi take 1 tablet losar gonzalez 50 mg oral tablet take 1 tablet oral tablet n 2 by mouth once (50 mg) by oral route once daily (3 sources) Receptor daily Mainor montelukast 10 mg oral Leukotrien take 1 tablet montelu kast 10 mg oral tablet take 1 tablet e Receptor by mouth once tablet (10 mg) by oral route once daily (3 sources) Antagonist daily in the in the evening evening predniSONE 20 mg oral Start: take 2 tablets Prednis one 20 Mg Tab 40 Mg ORAL Daily 10 tablet 08-03-2017 by mouth once Days 10 Tab (3 sources) daily End: 08-13-2017 Start: 07-27-2017 Prednisone 20 End: 08-01-2017 Mg Tab, 40 Mg Oral Daily 07/27/17 Discontinued take 2-14 Prednisone 20 tablets by Mg Tab 40 Mg mouth five ORAL Daily 5 times Days 5 DAY daily, SUPPLY FILLED then take 07-27-17 TAKES 2 tablets 2 (20MG) by mouth TABLETS Payers Date Payer Normalized Payer [id number] MEDICARE MEDICARE [id number] Plan of Treatment The data below is from unstructured sources Discharge Date 07/05/16 9:17pm Disposition 01 HOME, SELF-CARE Condition at Discharge Stable Instructions/Education Provided Ches t Pain Prescriptions See Medication Section Referrals ANABELLE BRAND MD - Prima Care Physician ANABELLE BRAND MD - Primary Care Physician ADRYAN MEMBRENO MD - Additional Instructions/Education 1. Return to ER for any concerns 2. Call Dr. Membreno's office tomorrow to rudy mahmood an appointment for follow-up 3. Use Pepcid (famotidine) twice daily f or the next week All discharge instructions reviewed with patient and/or family. Voiced understanding. Discharge Date 07/15/16 2:30pm Disposition 01 HOME, SELF-CARE Instructions/Education Provided Ches t Pain (DC) Prescriptions See Medication Section Referrals Dr. Membreno (Unspecified) - 08/02/16 Reason(s) for Referral: Chest pain Coronary artery disease You are scheduled for a follow up appointment with Dr. Membreno on Aug 02 at 3 pm LUKE MACK DO (Unspecified) - 07/20/16 Address: [address] [place] [id number] Reason(s) for Referral: You are scheduled for a follow up appointment with Dr. Mack on Jul 20 at 130 pm, please arrive a 115 pm to fill o ut the new patient paperwork ANABELLE BRAND MD (Unspecified) - 07/20/16 Address: [address] [place] [address] Reason(s) for Referral: You are scheduled for a follow up appointment with Dr. Brand on Jul 20 at 11 am Discharge Date 08/13/16 9:30am Prescriptions See Medication Section Discharge Date 08/17/16 10:30am Instructions/Education Provided EGD- ESOPHAGOGASTRODUODENOSCOPY Prescriptions See Medication Section Discharge Date 09/06/16 10:40am Instructions/Education Provided ANES THESIA INSTRUCTIONS POSTOP Prescriptions See Medication Section Discharge Date 07/04/17 12:19am Disposition 01 HOME, SELF-CARE Condition at Discharge Stable Instructions/Education Provided Pneu monia, Adult (DC) Prescriptions See Medication Section Referrals CARLOSDOMINIQUECHRISTIANSHUN JONES Order Date: Primary Care Physician Address: [address] [place] [id number] ,LOCAL PHYSICIAN Order Date: Primary Care Physician Additional Instructions/Education 1. Return to ER for any concerns such as worsening symptoms, shortness of breath, chest pain, 2. Follow-up with your doctor next week 3. Tylenol and Motrin for fever control 4. Antibiotics as directed starting mikey rrow. All discharge instructions reviewed with patient and/or family. Voiced understanding. Prescriptions See Medication Section Prescriptions See Medication Section Problems Active Problems Problem Problem Date Last Documented Episodic/Chr Provider Classificati Recorded Date onic on Abdominal Diaphragmatic hernia without Episodic LUKE DELMAN hernia obstruction or gangrene DO (6 sources) Acute Acute bronchitis due to other Episodic SANDRINE bronchitis specified organisms TONY SAEZ (7 sources) Adverse Fever, unspecified ; Translations: Episodic ARMAND CHRISTY effects of [Adverse effect of glucocorticoids MD medical and synthetic analogues, in itial drugs encounter] (4 sources) Asthma Unspecified asthma, uncomplicated Chronic SANDRINE JIMENEZ MD (7 sources) Chronic Chronic obstructive pulmonary Chronic AYDE FRANCO obstructive disease with acute lower DO pulmonary respiratory infection ; disease and Translations: [Chronic obst ructive bronchiectas pulmonary disease with (acu te) is exacerbation] (20 sources) Coronary Presence of coronary angioplasty Episodic BASHAR MELANIE atherosclero implant and graft sis and other heart disease (16 sources) Coronary Presence of coronary angioplasty [place] NDI FRANCO atherosclero implant and graft ; Translations: D O sis and [Atherosclerotic heart dise ase of other heart [place] coronary artery with out disease angina pectoris] (27 sources) Diabetes Hyperglycemia, unspecified Episodic R ODNEY mellitus TONY SAEZ without complication (15 sources) Disorders of Mixed hyperlipidemia ; Chronic BASHA R MELANIE lipid Translations: [Hyperlipidemia, metabolism unspecified] (21 sources) Esophageal Gastro-esophageal reflux disease Chronic AYDE FRANCO disorders without esophagitis DO (23 sources) Essential Essential (primary) hypertension ; Chronic BASHAR MELANIE hypertension Translations: [Unspecified MD (23 sources) essential hypertension] Fluid and Acidosis ; Translations: Episodic MIN DI FRANCO electrolyte [Hypo-osmolality and hyponatremia] DO disorders (12 sources) Gastritis Gastritis, unspecified, without Episodic LUKE DELMAN and bleeding ; Translations: DO duodenitis [Duodenitis without bleedin g] (10 sources) Gastroduoden Gastric ulcer, unspecified as acute Chronic LUKE MACK al ulcer or chronic, without hemorrhage or D O (except perforation hemorrhage) (6 sources) Heart valve Mitral valve disorders ; Chronic BAS YAIMA MELANIE disorders Translations: [Diseases of MD (10 sources) tricuspid valve] Hyperplasia Benign prostatic hyperplasia Chronic AYDE FRANCO of prostate without lower urinary tract DO (4 sources) symptoms Immunization Screening examination for other Episodic JULIO CÉSAR s and specified bacterial and spirochetal DANTE SAEZ screening diseases for infectious disease (4 sources) Malaise and Weakness Episodic RUSSELL fatigue ALEXANDRA SAEZ (2 sources) Mycoses Candidal stomatitis Episodic AYDE GA RNER (4 sources) DO 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 ; Translations: precerebral [Occlusion and stenosis of carotid arteries artery without mention of c erebral (22 sources) infarction] Other exterminator helper (current) use of Episodic P ETER BARTON aftercare antithrombotics/antiplatele ts (17 sources) Other FDC (current) use of aspirin Episodic PETER BARTON aftercare (9 sources) Other exterminator helper (current) use of systemic Episodic AYDE FRANCO aftercare steroids DO (8 sources) Other Other ocean transportation intermediary (current) drug Episodic BASHAR MELANIE aftercare therapy (17 sources) Other exterminator helper (current) use of inhaled Episodic RUSSELL aftercare steroids ALEXANDRA SAEZ (2 sources) Other Encounter for other orthopedic Episodic AYDE FRANCO aftercare aftercare DO (4 sources) Other Other symptoms involving nervous Episodic Carolee connective and musculoskeletal systems Raya tissue disease (6 sources) Other Arthrodesis status Episodic RUSSELL connective ALEXANDRA SAEZ tissue disease (2 sources) Other Functional dyspepsia Episodic PETER B ATES disorders of stomach and duodenum (5 sources) Other ear Other chronic otitis externa Chronic CHRISTIAN and sense CARLOS organ disorders (4 sources) Other ear Other otitis externa, left ear Chronic CHRISTIAN and sense CARLOS organ disorders (4 sources) Other ear Impacted cerumen Episodic CHRISTIAN and sense CARLOS organ disorders (7 sources) Other ear Impacted cerumen, right ear Episodic CHRISTIAN and sense CARLOS organ disorders (7 sources) Other Drug induced constipation Episodic [place] NDI FRANCO gastrointest DO inal disorders (4 sources) Other lower Cough Episodic PETER BARTON respiratory disease (6 sources) Other lower Other specified respiratory Episodic AYDE FRANCO respiratory disorders DO disease (8 sources) Other lower Personal history of pneumonia Episodic CHRISTIAN respiratory (recurrent) CARLOS disease (13 sources) Other lower Dyspnea, unspecified Episodic CHRISTIAN respiratory CARLOS disease (5 sources) Other lower Other forms of dyspnea Episodic BASHA R MELANIE respiratory MD disease (5 sources) Other lower Cough Episodic CHRISTIAN respiratory CARLOS disease (2 sources) Other lower Shortness of breath Episodic CHRISTIAN respiratory CARLOS disease (2 sources) Other lower Shortness of breath Episodic CHRISTIAN respiratory CARLOS disease (2 sources) Other lower Acute respiratory distress Episodic M PASTORA FRANCO respiratory DO disease (1 source) Other Other chronic pain Chronic Carolee nervous Raya system disorders (6 sources) Other Body mass index (BMI) 34.0-34.9, Chronic AYDE FRANCO nutritional; adult ; Translations: [Obstructive DO endocrine; sleep apnea (adult) (pediat gloria)] and metabolic disorders (7 sources) Other Obesity, unspecified Chronic BASHAR MELANIE nutritional; MD endocrine; and metabolic disorders (22 sources) Other Obesity, unspecified Chronic BASHAR MELANIE nutritional; MD endocrine; and metabolic disorders (14 sources) Other Body mass index (BMI) 33.0-33.9, Chronic BASHAR MELANIE nutritional; adult MD endocrine; and metabolic disorders (3 sources) Other Body mass index (BMI) 37.0-37.9, Chronic THEA nutritional; adult SKY DO endocrine; and metabolic disorders (4 sources) Other Body mass index (BMI) 38.0-38.9, Chronic AYDE FRANCO nutritional; adult DO endocrine; and metabolic disorders (4 sources) Other Morbid (severe) obesity due to Chronic AYDE FRANCO nutritional; excess calories DO endocrine; and metabolic disorders (4 sources) Other Other disorders of phosphorus Chronic AYDE FRANCO nutritional; metabolism DO endocrine; and metabolic disorders (4 sources) Other Abnormal result of other Episodic BAS YAIMA MELANIE screening cardiovascular function study MD for suspected conditions (not mental disorders or infectious disease) (5 sources) Other skin Disorder of the skin and Episodic CATARINA C DELMAN disorders subcutaneous tissue, unspecified DO (4 sources) Other skin Other specified epidermal Episodic ER IC DELMAN disorders thickening DO (6 sources) Other upper Other seasonal allergic rhinitis Chronic CHRISTIAN respiratory CARLOS disease (20 sources) Other upper Allergic rhinitis, cause Chronic Aad itya respiratory unspecified Raya disease (3 sources) Other upper Allergic rhinitis due to other Chronic CHRISTIAN respiratory allergen CARLOS disease (8 sources) Other upper Other specified disorders of nose Episodic AYDE FRANCO respiratory and nasal sinuses DO disease (8 sources) Other upper Nasal congestion Episodic CHRISTIAN respiratory CARLOS disease (1 source) Other upper Other disease of nasal cavity and Episodic CHRISTIAN respiratory sinuses CARLOS disease (1 source) Other upper Acute nasopharyngitis [common cold] Episodic CHRISTIAN respiratory ; Translations: [Acute CARLOS infections nasopharyngitis [common col d]] (18 sources) Otitis media Otitis media, unspecified, left ear Episodic CHRISTIAN and related ; Translations: [Unspecified otitis CARLOS conditions media] (6 sources) Peripheral Atherosclerosis of aorta Chronic CHR ISTINE and visceral STEPHANIE atherosclero sis (3 sources) Pneumonia Lobar pneumonia, unspecified Episodic ARMAND CHRISTY (except that organism ; Translations: MD caused by [Pneumonia, unspecified org anism] tuberculosis or sexually transmitted disease) (20 sources) Residual Obstructive sleep apnea (adult) Chronic BASHAR MELANIE codes; (pediatric) ; Translations: [Body M D unclassified mass index (BMI) 33.0-33.9, adult] (18 sources) Residual Sleep apnea, unspecified Chronic JUDITH SHWETA codes; TONY SAEZ unclassified (2 sources) Residual Acquired absence of other specified Episodic PETER BARTON codes; parts of digestive tract unclassified (10 sources) Residual Procedure not carried out for other Episodic JULIO CÉSAR codes; reasons DANTE SAEZ unclassified (4 sources) Residual Localized edema Episodic AYDE FRANCO codes; DO unclassified (4 sources) Residual Patient's noncompliance with other Episodic AYDE FRANCO codes; medical treatment and regimen DO unclassified (4 sources) Screening Personal history of nicotine Episodic AYDE FRANCO and history dependence DO of mental health and substance abuse codes (23 sources) Septicemia Sepsis, unspecified organism Episodic AYDE FRANCO (except in DO labor) (4 sources) Spondylosis; Lumbago ; Translations: [Low back Episodic Carolee intervertebr pain] Raya al disc disorders; other back problems (20 sources) Past or Other Problems Problem Problem Date Last Documented Episodic/Chr Provider Classificati Recorded Date onic on Chronic Chronic obstructive pulmonary AADIT YA obstructive disease and bronchiectasis RAYA pulmonary disease and bronchiectas is (1 source) Unclassified Acute respiratory distress (7 sources) NEGATED Pure hypercholesterolemia, PETER BA ALTHEA (17 sources) unspecified NEGATED Adverse effect of glucocort icoids (13 sources) and synthetic analogues, in itial encounter NEGATED Sleep apnea, unspecified (14 sources) Procedures Date Procedure Procedure Detail Performing Cl inician Start: FUSION 2-4 L JT W HTEA SWANSON DO 07-02-2019 INTBD FUS DEV, ANT ERNESTINA Start: FUSION 2-4 L JT W THEA SWANSON DO 07-02-2019 NONAUT SUB, POST APPR Start: RESECTION OF THEA SWANSON DO 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 Social History Date Type Detail Facility Start: [facility] ([id number]) Start: Former smoker [facility] ([id number]) Vital Signs Date Time Vital Sign Value Performing Clinician Ayala ity 12-05-2018 BMI (Body Mass 36.49 kg/m2 Carolee Raya [facility] 16:07-0400 Index) [facility] ([id number]) 12-05-2018 Body [facility] 97.5 [degF[facility] ([id number][facility] 12-05-2018 Body weight 112.1 kg [facility] ([id number]) 12-05-2018 Blood Pressure 132/ Carolee Raya [facility] 16:07-0400 80mm[Hg] [facility] ([id number]) 12-05-2018 BSA (Body Surface 2.34 m2 [facility]e [facility]a [facility] [id number] Area) [facility] ([id number]) 12-05-2018 Height 175.26 cm Carolee Raya Holmes [facility] [id number] [facility] ([id number]) 12-05-2018 Pulse (Heart Rate) 73 /min [facility] [id number] [facility] ([id number]) 12-05-2018 Pulse Oximetry 95 % [facility] ([id number]) 12-05-2018 Respiratory Rate 18 /min Carolee Raya Holmes [facility] [id number] [facility] ([id number]) 10-04-2018 BMI (Body Mass 36.48 kg/m2 Carolee Raya [facility] 15:41-0400 Index) [facility] ([id number]) 10-04-2018 Body Temperature 97.9 [degF] [facility] ([id number]) 10-04-2018 Body weight 112.04 kg Carolee Raya Holmes [facility] 15:41-0400 [facility] ([id number]) 10-04-2018 Blood Pressure 134/ Carolee Raya [facility] 15:41-0400 72mm[Hg] [facility] ([id number]) 10-04-2018 BSA (Body Surface 2.34 m2 [facility] 15:[facility] Area[facility] ([id number]) 10-04-2018 Height 175.26 cm Carolee Raya Holmes [facility] 15:41-0400 [facility] ([id number]) 10-04-2018 Pulse (Heart Rate) 79 /min [facility]e Raya [facility] 15:41-0400 [facility] ([id number]) 10-04-2018 Pulse Oximetry 94 % [facility]olee Raya [facility] 15:41-0400 [facility] ([id number]) 07-25-2018 BMI (Body Mass 36.11 kg/m2 Carolee Raya [facility] 14:03-0500 Index) [facility] ([id number]) 07-25-2018 Body Temperature 98.2 [degF] Carolee Raya [facility] [id number] [facility] ([id number]) 07-25-2018 Body weight 110.91 kg Carolee Raya [facility] [id number]:030500 [facility] ([id number]) 07-25-2018 Blood Pressure 124/ Carolee Raya [facility] 14:0500 60mm[Hg] [facility] ([id number]) 07-25-2018 BSA (Body Surface 2.32 m2 Car[facility]e Raya [facility] [id number]:030500 Area) [facility] ([id number]) 07-25-2018 Height 175.26 cm Carolee Raya [facility] [id number] [facility] ([id number]) 07-25-2018 Pulse (Heart Rate) 74 /min Carolee Raya [facility] [id number] [facility] ([id number]) 07-25-2018 Pulse Oximetry 95 % Carolee Raya [facility] 14:030500 [facility] ([id number]) 07-25-2018 Respiratory Rate 16 /min Carolee Raya [facility] 14:03-0500 [facility] ([id number]) 07-25-2018 Weight 110.91 kg Carolee Scruggs [facility] 14:03-0500 [facility] ([id number]) Functional Status The data below is from unstructured sources Query Response Date Thanh rded Patient Orientation Person Place Time Situation July 15, 2016 2:58pm Patient Orientation Person Place Time Situation Normal For Age July 15, 2016 2:58pm Comprehension Ability Understands Co ncepts July 15, 2016 8:15am No functional status information available. Mental Status No Information Advance Directives Directive Response Recor ded Date/Time Advance Directives No 7:00pm Health Care Power of Automotive Detailer No 07/05/16 7:00pm Organ Donor Yes 07/05/16 7:00pm Resuscitation Status Full Code 07/05/16 7:00pm Directive Response Recor ded Date/Time Advance Directives No 3:40am Health Care Power of Automotive Detailer No 07/15/16 3:40am Organ Donor Yes 07/15/16 3:40am Resuscitation Status Full Code 07/15/16 3:40am Directive Response Recor ded Date/Time Advance Directives No 9:21am Health Care Power of Automotive Detailer No 08/13/16 9:21am Organ Donor Yes 08/13/16 9:21am Resuscitation Status Full Code 08/13/16 9:21am Directive Response Recor ded Date/Time Advance Directives No 7:59am Health Care Power of Automotive Detailer No 08/17/16 7:59am Organ Donor Yes 08/17/16 7:59am Resuscitation Status Full Code 08/17/16 7:59am Directive Response Recor ded Date/Time Advance Directives No 7:26am Health Care Power of Automotive Detailer No 09/06/16 7:26am Organ Donor Yes 09/06/16 7:26am Resuscitation Status Full Code 09/06/16 7:26am Directive Response Recor ded Date/Time Advance Directives No 11:13pm Health Care Power of Automotive Detailer No 07/03/17 11:13pm Organ Donor Yes 07/03/17 11:13pm Resuscitation Status Full Code 07/03/17 11:13pm Directive Response Recor ded Date/Time Advance Directives No 11:20pm Health Care Power of Automotive Detailer No 07/31/17 7:54pm Organ Donor Yes 07/31/17 7:54pm Discharge Instructions No hospital discharge instructions.No hospital discharge instructions.No hospital discharge instructions. Patient Instructions Physician Instructions 1.: Gastric Ulcer, Gastritis, Other Findings (Duodenal inflamation. Small Hiatal hernia) - Activity: You might feel a little sleepy until tomorrow. This is due to the medicine you received to relax you. Until tomorrow, you should: NOT drive a car, operate machinery or power tools. NOT drink any alcoholic beverages. NOT make any important decisions or sign importortant papers. Do not return to work until tomorrow, unless otherwise instructed. Resume previous activities tomorrow. Diet: Start by taking liquids. If you tolerate liquids, advance to solid food. 1.: EGD in 6-8 weeks - If you experience excessive bleeding, unusual abdominal pain, fever, or chest pain, contact your doctor immediately. Phone number [phone] Follow Up: Weeks (one week) - I have received and understand the above instructions and will call my doctor if I have any further questions. Patient Signature Date Nurse Signature Other (Relationship) Patient Instructions Physician Instructions New, Converted or Re-Newed RX: RX Given to Pt/Family Patient Instructions Follow up Appt: Make appointment for 1 week. [phone] Instructions: No strenuous activity. May shower in 24 hours, no tub bath or soaking. Use incentive spirometer at home as directed. No Smoking Skin/Wound Care: May remove bandages. Glue will fall off on its own. Symptoms to Report: Appetite Changes, Extremity Discoloration, Numbness/Tingling, Swelling Increased, Bleeding Excessive, Eyesight Changes, Pain Increased, Urine Color Change, Constipation(Persistent), Fever over 101 degree F, Pain/Pressure in chest, Urinating Difficulty, Cough Up/Vomit Blood, Heart Beat Irreg/Pounding, Pain/Pressure in jaw, Vaginal Bleeding Increase, Cramps in feet or legs, Lightheadedness, Pain/Pressure in shoulder, Diarrhea(Persistent), Memory Changes Suddenly, Questions/Concerns, Weight gain consecutive days, Dizziness/Fainting, Nausea/Vomiting, Shortness of Breath, Weight gain over 2 pounds If questions or concerns contact your physician Or seek help at emergency department. Activity as Tolerated: Yes Driving Instructions: No Driving/Refer to Dr. Tian Diet: No Restrictions If Any Problems/Questions/Issu: Contact Your Physician, Go to Emergency Room Infection Signs and Symptoms: Increased Redness, Foul Odor of Wound, Increased Drainage, Increased Swelling, Temperature Above 101 F Bathing Instructions: Shower Stitches/Lemuel/Dermabond Dis: Dermabond No hospital discharge instruction information available.No hospital discharge i nstruction information available. Additional Source Comments This clinical document has been generated using [employer] software that has been certified by the Office of the National Coordinator for Health Information Technology (ONC 15.99.04.3023.[id number].[id number]) and the National Committee for Electrician Supervisor (NCQA, as an eMeasure certified technology). FOR RECORDS PERTAINING TO PATIENTS WHO ARE OR HAVE BEEN ENROLLED IN A CHEMICAL D EPENDENCY/SUBSTANCE ABUSE PROGRAM, SOME INFORMATION MAY BE OMITTED. This clinica l summary was aggregated from multiple sources. Caution should be exercised in using it in the provision of clinical care. This summary normalizes information from multiple sources, and as a consequence, information in this document may ma terially change the coding, format and clinical context of patient data. In ojdy tion, data may be omitted in some cases. CLINICAL DECISIONS SHOULD BE BASED ON T HE PRIMARY CLINICAL RECORDS. [employer] provides no warranty or guara ntee of the accuracy or completeness of information in this document.The followi ng information is based on time limited clinical information
[2020-01-24] MEDS ORDERED: LACTATED RINGERS 1,000 ML IV STA (07:16)
--- OUTSIDE RECORDS SUMMARY | 2020-01-24 07:16 | XMS REPORT | Continuity of Care Document ---
Author Organization Unknown Address Unknown Phone Unavailable Allergies Active Description Code Type Severity Reaction Onset Reported/Identified Relationship to Patient Clinical Status Yes NO KNOWN DRUG ALLERGIES UNKNOWN NO KNOWN DRUG ALLERG Yes NO KNOWN DRUG ALLERGIES UNKNOWN UNKNOWN Yes No Known Drug Allergies [id number] Drug Allergy Unknown N/A 01/17/2020 Medications There is no data. Problems Date Dx Coded Attending Type Code Diagnosis Diagnosed By 05/12/1311 TAYO SAEZ, FABY Schaefer Ot Z01.818 ENCOUNTER FOR OTHER PREPROCEDURAL EXAMIN 12/25/2010 Ot 211.3 12/25/2010 Ot 448.9 12/25/2010 Ot 569.0 06/19/2011 Ot 486 PNEUMO RBUCE, ORGANISM NOS 06/19/2011 Ot 780.60 FEV ER, UNSPECIFIED 08/17/2013 JULIO CÉSAR HOWELL MD Ot 433.10 CAROTID ARTERY OCCLUSION W O CEREBRAL IN 08/17/2013 JULIO CÉSAR HOWELL MD Ot V64.3 NO PROC FOR REASONS NEC 09/17/2015 ADRYAN NAVARRO MD Ot 272. 4 09/17/2015 ADRYAN NAVARRO MD Ot 278. 00 09/17/2015 ADRYAN NAVARRO MD Ot 401. 9 09/17/2015 ADRYAN NAVARRO MD Ot 414. 01 09/17/2015 ADRYAN NAVARRO MD Ot 433. 10 09/17/2015 ADRYAN NAVARRO MD Ot 272. 4 09/17/2015 ADRYAN NAVARRO MD Ot 278. 00 09/17/2015 ADRYAN NAVARRO MD Ot 397. 0 09/17/2015 ADRYAN NAVARRO MD Ot 401. 9 09/17/2015 ADRYAN NAVARRO MD Ot 414. 00 09/17/2015 ADRYAN NAVARRO MD Ot 424. 0 09/17/2015 JULIO CÉSAR HOWELL MD Ot 433.10 09/17/2015 JULIO CÉSAR HOWELL MD Ot V72.81 09/17/2015 JULIO CÉSAR HOWELL MD Ot V72.83 09/17/2015 DANTE SAEZ, JULIO CÉSAR S Ot V72.84 09/17/2015 DANTE SAEZ, JULIO CÉSAR Lemus Ot V74.8 09/18/2015 ADRYAN NAVARRO MD Ot E78. 2 09/18/2015 ADRYAN NAVARRO MD Ot I10 09/18/2015 ADRYAN NAVARRO MD Ot I25. 10 09/18/2015 ADRYAN NAVARRO MD Ot I65. 23 09/18/2015 ADRYAN NAVARRO MD Ot R06. 09 09/23/2015 ADRYAN NAVARRO MD Ot E78. 2 09/23/2015 ADRYAN NAVARRO MD Ot I10 09/23/2015 ADRYAN NAVARRO MD Ot I25. 10 09/23/2015 ADRYAN NAVARRO MD Ot I65. 23 09/23/2015 ADRYAN NAVARRO MD Ot R06. 09 10/07/2015 ADRYAN NAVARRO MD Ot E78. 2 MIXED HYPERLIPIDEMIA 10/07/2015 ADRYAN NAVARRO MD Ot I10 ESSENTIAL (PRIMARY) HYPERTENSION 10/07/2015 ADRYAN NAVARRO MD Ot I25. 10 ATHSCL HEART DISEASE OF [place] CORONARY 10/07/2015 ADRYAN NAVARRO MD Ot I65. 23 OCCLUSION AND STENOSIS OF [place]IL[place] 10/07/2015 ADRYAN NAVARRO MD Ot R06. 09 OTHER FORMS OF DYSPNEA 10/09/2015 ADRYAN NAVARRO MD Ot E66. 9 OBESITY, UNSPECIFIED 10/09/2015 ADRYAN NAVARRO MD Ot E78. 5 HYPERLIPIDEMIA, UNSPECIFIED 10/09/2015 ADRYAN NAVARRO MD Ot G47. 33 OBSTRUCTIVE SLEEP APNEA (ADULT) (PEDIATR 10/09/2015 ADRYAN NAVARRO MD Ot I10 ESSENTIAL (PRIMARY) HYPERTENSION 10/09/2015 ADRYAN NAVARRO MD Ot I25. 10 ATHSCL HEART DISEASE OF [place] CORONARY 10/09/2015 ADRYAN NAVARRO MD Ot J44. 9 CHRONIC OBSTRUCTIVE PULMONARY DISEASE, U 10/09/2015 ADRYAN NAVARRO MD Ot R94. 39 ABNORMAL RESULT OF OTHER CARDIOVASCULAR 10/09/2015 ADRYAN NAVARRO MD Ot Z68. 33 BODY MASS INDEX (BMI) 33.0-33.9, ADULT 10/09/2015 ADRYAN NAVARRO MD, Ot Z79.899 OTHER RN SURGICAL PCU (CURRENT) DRUG THERAPY 10/09/2015 ADRYAN NAVARRO MD Ot Z95. 5 PRESENCE OF CORONARY ANGIOPLASTY IMPLANT 07/05/2016 IRASEMA BARTON APRN Ot I25.10 ATHSCL HEART DISEASE OF [place] CORONARY 07/05/2016 IRASEMA BARTON APRN Ot I25 .2 OLD MYOCARDIAL INFARCTION 07/05/2016 IRASEMA BARTON APRN Ot K30 FUNCTIONAL DYSPEPSIA 07/05/2016 IRASEMA BARTON APRN Ot R07 .9 CHEST PAIN, UNSPECIFIED 07/05/2016 IRASEMA BRATON APRN Ot Z79.02 RN SURGICAL PCU (CURRENT) USE OF ANTITHROMBOTI 07/05/2016 IRASEMA BARTON APRN Ot Z79.82 SHELTER (CURRENT) USE OF ASPIRIN 07/05/2016 IRASEMA BARTON APRN Ot Z79.899 OTHER RN SURGICAL PCU (CURRENT) DRUG THERAPY 07/05/2016 IRASEMA BARTON APRN Ot Z95 .5 PRESENCE OF CORONARY ANGIOPLASTY IMPLANT 07/05/2016 ADRYAN NAVARRO MD Ot 272. 4 HYPERLIPIDEMIA NEC/NOS 07/05/2016 ADRYAN NAVARRO MD Ot 278. 00 OBESITY, NOS 07/05/2016 ADRYAN NAVARRO MD Ot 401. 9 HYPERTENSION NOS 07/05/2016 ADRYAN NAVARRO MD Ot 414. 01 CORONARY ATHEROSCLEROSIS OF [place] CORON 07/05/2016 ADRYAN NAVARRO MD Ot 433. 10 CAROTID ARTERY OCCLUSION W O CEREBRAL IN 07/05/2016 ADRYAN NAVARRO MD Ot 272. 4 HYPERLIPIDEMIA NEC/NOS 07/05/2016 ADRYAN NAVARRO MD Ot 278. 00 OBESITY, NOS 07/05/2016 ADRYAN NAVARRO MD Ot 397. 0 TRICUSPID VALVE DISEASE 07/05/2016 ADRYAN NAVARRO MD Ot 401. 9 HYPERTENSION NOS 07/05/2016 ADRYAN NAVARRO MD Ot 414. 00 CORON ATHEROSCLER NOS TYPE VESSEL, NATIV 07/05/2016 ADRYAN NAVARRO MD Ot 424. 0 MITRAL VALVE DISORDER 07/05/2016 JULIO CÉSAR HOWELL MD Ot 433.10 CAROTID ARTERY OCCLUSION W O CEREBRAL IN 07/05/2016 JULIO CÉSAR HOWELL MD Ot V72.81 [id number] CARDIOVASCULAR 07/05/2016 JULIO CÉSAR HOWELL MD Ot V72.83 EXAM PRE-OPERATIVE NEC 07/05/2016 JULIO CÉSAR HOWELL MD Ot V72.84 EXAM PRE-OPERATIVE NOS 07/05/2016 DANTE SAEZ, JULIO CÉSAR Lemus Ot V74.8 SCREEN-BACTERIAL DIS NEC 07/05/2016 ADRYAN NAVARRO MD Ot E78. 2 MIXED HYPERLIPIDEMIA 07/05/2016 ADRYAN NAVARRO MD Ot I10 ESSENTIAL (PRIMARY) HYPERTENSION 07/05/2016 ADRYAN NAVARRO MD Ot I25. 10 ATHSCL HEART DISEASE OF [place] CORONARY 07/05/2016 ADRYAN NAVARRO MD Ot I65. 23 OCCLUSION AND STENOSIS OF [place]IL[place] 07/05/2016 ADRYAN NAVARRO MD Ot R06. 09 OTHER FORMS OF DYSPNEA 07/06/2016 IRASEMA BARTON APRN Ot I25.10 ATHSCL HEART DISEASE OF [place] CORONARY 07/06/2016 IRASEMA BARTON APRN Ot I25 .2 OLD MYOCARDIAL INFARCTION 07/06/2016 IRASEMA BARTON APRN Ot K30 FUNCTIONAL DYSPEPSIA 07/06/2016 IRASEMA BARTON APRN Ot R07 .9 CHEST PAIN, UNSPECIFIED 07/06/2016 IRASEMA BARTON APRN Ot Z79.02 SHELTER (CURRENT) USE OF ANTITHROMBOTI 07/06/2016 IRASEMA BARTON APRN Ot Z79.82 SHELTER (CURRENT) USE OF ASPIRIN 07/06/2016 IRASEMA BARTON APRN Ot Z79.899 OTHER SHELTER (CURRENT) DRUG THERAPY 07/06/2016 IRASEMA BARTON APRN Ot Z95 .5 PRESENCE OF CORONARY ANGIOPLASTY IMPLANT 07/15/2016 ADRYAN NAVARRO MD Ot 272. 4 HYPERLIPIDEMIA NEC/NOS 07/15/2016 ADRYAN NAVARRO MD Ot 278. 00 OBESITY, NOS 07/15/2016 ADRYAN NAVARRO MD Ot 401. 9 HYPERTENSION NOS 07/15/2016 ADRYAN NAVARRO MD Ot 414. 01 CORONARY ATHEROSCLEROSIS OF [place] CORON 07/15/2016 ADRYAN NAVARRO MD Ot 433. 10 CAROTID ARTERY OCCLUSION W O CEREBRAL IN 07/15/2016 ADRYAN NAVARRO MD Ot 272. 4 HYPERLIPIDEMIA NEC/NOS 07/15/2016 ADRYAN NAVARRO MD Ot 278. 00 OBESITY, NOS 07/15/2016 ADRYAN NAVARRO MD Ot 397. 0 TRICUSPID VALVE DISEASE 07/15/2016 ADRYAN NAVARRO MD Ot 401. 9 HYPERTENSION NOS 07/15/2016 ADRYAN NAVARRO MD Ot 414. 00 CORON ATHEROSCLER NOS TYPE VESSEL, NATIV 07/15/2016 ADRYAN NAVARRO MD Ot 424. 0 MITRAL VALVE DISORDER 07/15/2016 JULIO CÉSAR HOWELL MD Ot 433.10 CAROTID ARTERY OCCLUSION W O CEREBRAL IN 07/15/2016 JULIO CÉSAR HOWELL MD Ot V72.81 [id number] CARDIOVASCULAR 07/15/2016 JULIO CÉSAR HOWELL MD Ot V72.83 EXAM PRE-OPERATIVE NEC 07/15/2016 JULIO CÉSAR HOWELL MD Ot V72.84 EXAM PRE-OPERATIVE NOS 07/15/2016 JULIO CÉSAR HOWELL MD Ot V74.8 SCREEN-BACTERIAL DIS NEC 07/15/2016 ADRYAN NAVARRO MD Ot E78. 2 MIXED HYPERLIPIDEMIA 07/15/2016 ADRYAN NAVARRO MD Ot I10 ESSENTIAL (PRIMARY) HYPERTENSION 07/15/2016 ADRYAN NAVARRO MD Ot I25. 10 ATHSCL HEART DISEASE OF [place] CORONARY 07/15/2016 ADRYAN NAVARRO MD Ot I65. 23 OCCLUSION AND STENOSIS OF [place] 07/15/2016 ADRYAN NAVARRO MD Ot R06. 09 OTHER FORMS OF DYSPNEA 07/15/2016 AYDE FRANCO DO Ot E66.9 OBESITY, UNSPECIFIED 07/15/2016 AYDE FRANCO DO Ot E78.5 HYPERLIPIDEMIA, UNSPECIFIED 07/15/2016 AYDE FRANCO DO Ot G47.33 OBSTRUCTIVE SLEEP APNEA (ADULT) (PEDIATR 07/15/2016 AYDE FRANCO DO Ot I10 ESSENTIAL (PRIMARY) HYPERTENSION 07/15/2016 AYDE FRANCO DO Ot I25.10 ATHSCL HEART DISEASE OF [place] CORONARY 07/15/2016 AYDE FRANCO DO Ot J44.9 CHRONIC OBSTRUCTIVE PULMONARY DISEASE, U 07/15/2016 AYDE FRANCO DO Ot K21.9 GASTRO-ESOPHAGEAL REFLUX DISEASE WITHOUT 07/15/2016 AYDE FRANCO DO Ot R07.89 OTHER CHEST PAIN 07/15/2016 AYDE FRANCO DO Ot Z68.34 BODY MASS INDEX (BMI) 34.0-34.9, ADULT 07/15/2016 AYDE FRANCO DO Ot Z79.89 9 OTHER SHELTER (CURRENT) DRUG THERAPY 07/15/2016 AYDE FRANCO DO Ot Z87.89 1 PERSONAL HISTORY OF NICOTINE DEPENDENCE 07/15/2016 AYDE FRANCO DO Ot Z95.5 PRESENCE OF CORONARY ANGIOPLASTY IMPLANT 07/15/2016 TERENCE FRANCO DOI Ot E66.9 OBESITY, UNSPECIFIED 07/15/2016 TERENCE FRANCO DOI Ot E78.5 HYPERLIPIDEMIA, UNSPECIFIED 07/15/2016 TERENCE FRANCO DOI Ot G47.33 OBSTRUCTIVE SLEEP APNEA (ADULT) (PEDIATR 07/15/2016 TERENCE FRANCO DOI Ot I10 ESSENTIAL (PRIMARY) HYPERTENSION 07/15/2016 AYDE FRANCO DO Ot I25.10 ATHSCL HEART DISEASE OF [place] CORONARY 07/15/2016 AYDE FRANCO DO Ot J44.9 CHRONIC OBSTRUCTIVE PULMONARY DISEASE, U 07/15/2016 AYDE FRANCO DO Ot K21.9 GASTRO-ESOPHAGEAL REFLUX DISEASE WITHOUT 07/15/2016 AYDE FRANCO DO Ot R07.89 OTHER CHEST PAIN 07/15/2016 AYDE FRANCO DO Ot Z68.34 BODY MASS INDEX (BMI) 34.0-34.9, ADULT 07/15/2016 AYDE FRANCO DO Ot Z79.89 9 OTHER SHELTER (CURRENT) DRUG THERAPY 07/15/2016 AYDE FRANCO DO Ot Z87.89 1 PERSONAL HISTORY OF NICOTINE DEPENDENCE 07/15/2016 AYDE FRANCO DO Ot Z95.5 PRESENCE OF CORONARY ANGIOPLASTY IMPLANT 08/02/2016 FREDERICK DO, LUKE B Ot R07.8 9 OTHER CHEST PAIN 08/02/2016 DELMAN DO, LUKE B Ot Z01.8 18 ENCOUNTER FOR OTHER PREPROCEDURAL EXAMIN 08/03/2016 DELMAN DO, LUKE B Ot R07.8 9 OTHER CHEST PAIN 08/03/2016 DELMAN DO, LUKE B Ot Z01.8 18 ENCOUNTER FOR OTHER PREPROCEDURAL EXAMIN 08/13/2016 DELMAN DO LUKE B Ot R07.9 CHEST PAIN, UNSPECIFIED 08/13/2016 DELMAN DO LUKE B Ot Z01.8 18 ENCOUNTER FOR OTHER PREPROCEDURAL EXAMIN 08/13/2016 DELMAN DO, LUKE B Ot R07.9 CHEST PAIN, UNSPECIFIED 08/13/2016 FREDERICK BAIN LUKE B Ot Z01.8 18 ENCOUNTER FOR OTHER PREPROCEDURAL EXAMIN 08/17/2016 SHERRILL MACK DOIC B Ot K25.9 GASTRIC ULCER, UNSP ACUTE OR CHRONIC, 08/17/2016 FREDERICK DO LUKE B Ot K29.7 0 GASTRITIS, UNSPECIFIED, WITHOUT BLEEDING 08/17/2016 FREDERICK DO LUKE B Ot K29.8 0 DUODENITIS WITHOUT BLEEDING 08/17/2016 FREDERICK DO, LUKE B Ot K44.9 DIAPHRAGMATIC HERNIA WITHOUT OBSTRUCTION 08/18/2016 FREDERICK DO LUKE B Ot K25.9 GASTRIC ULCER, UNSP ACUTE OR CHRONIC, 08/18/2016 FREDERICK DOSHERRILLIC B Ot K29.7 0 GASTRITIS, UNSPECIFIED, WITHOUT BLEEDING 08/18/2016 FREDERICK DO LUKE B Ot K29.8 0 DUODENITIS WITHOUT BLEEDING 08/18/2016 SHERRILL MACK DOIC B Ot K44.9 DIAPHRAGMATIC HERNIA WITHOUT OBSTRUCTION 08/24/2016 FREDERICK BAIN LUKE B Ot K25.9 GASTRIC ULCER, UNSP ACUTE OR CHRONIC, 08/24/2016 FREDERICK DO LUKE B Ot K29.7 0 GASTRITIS, UNSPECIFIED, WITHOUT BLEEDING 08/24/2016 FREDERICK BAIN LUKE B Ot K29.8 0 DUODENITIS WITHOUT BLEEDING 08/24/2016 FREDERICK BAIN LUKE B Ot K44.9 DIAPHRAGMATIC HERNIA WITHOUT OBSTRUCTION 09/02/2016 SHERRILL MACK DOIC B Ot L98.9 DISORDER OF THE SKIN AND SUBCUTANEOUS TI 09/02/2016 SHERRILL MACK DOIC B Ot Z01.8 18 ENCOUNTER FOR OTHER PREPROCEDURAL EXAMIN 09/02/2016 SHERRILL MACK DOIC B Ot L98.9 DISORDER OF THE SKIN AND SUBCUTANEOUS TI 09/02/2016 SHERRILL MACK DOIC B Ot Z01.8 18 ENCOUNTER FOR OTHER PREPROCEDURAL EXAMIN 09/06/2016 SHERRILL MACK DOIC B Ot L85.8 OTHER SPECIFIED EPIDERMAL THICKENING 09/08/2016 FREDERICK BAIN LUKE B Ot L85.8 OTHER SPECIFIED EPIDERMAL THICKENING 09/15/2016 SHERRILL MACK DOIC B Ot L85.8 OTHER SPECIFIED EPIDERMAL THICKENING 03/03/2017 W 380.23 OTH ER CHRONIC OTITIS EXTERNA 03/03/2017 W 460 ACUTE NASOPHARYNGITIS [COMMON COLD] 03/03/2017 W 477.8 TRIPP RGIC RHINITIS DUE TO OTHER ALLERGEN 03/03/2017 W H60.8X2 OT HER OTITIS EXTERNA, LEFT EAR 03/03/2017 W J00 ACUTE NASOPHARYNGITIS [COMMON COLD] 03/03/2017 W J30.2 OTHE R SEASONAL ALLERGIC RHINITIS 05/09/2017 JOAQUIN NATION Ot E78.2 MIXED HYPERLIPIDEMIA 05/09/2017 JOAQUIN NATION Ot I10 ESSENTIAL (PRIMARY) HYPERTENSION 05/09/2017 JOAQUIN NATION Ot I25.10 ATHSCL HEART DISEASE OF [place] CORONARY 05/09/2017 JOAQUIN NATION Ot I65.23 OCCLUSION AND STENOSIS OF [place] 05/20/2017 W 382.9 UNSP ECIFIED OTITIS MEDIA 05/20/2017 W 460 ACUTE NASOPHARYNGITIS [COMMON COLD] 05/20/2017 W H66.92 COLEMAN TIS MEDIA, UNSPECIFIED, LEFT EAR 05/20/2017 W J00 ACUTE NASOPHARYNGITIS [COMMON COLD] 07/02/2017 A 465.9 ACUT E UPPER RESPIRATORY INFECTIONS OF UNSPECIFIED SITE 07/02/2017 A J06.9 ACUT E UPPER RESPIRATORY INFECTION, UNSPECIFIED 07/04/2017 IRASEMA BARTON APRN Ot E78.00 PURE HYPERCHOLESTEROLEMIA, UNSPECIFIED 07/04/2017 IRASEMA BARTON APRN Ot I25.10 ATHSCL HEART DISEASE OF [place] CORONARY 07/04/2017 IRASEMA BARTON APRN Ot I25 .2 OLD MYOCARDIAL INFARCTION 07/04/2017 IRASEMA BARTON APRN Ot J18 .1 LOBAR PNEUMONIA, UNSPECIFIED ORGANISM 07/04/2017 IRASEMA BARTON APRN Ot K21 .9 GASTRO-ESOPHAGEAL REFLUX DISEASE WITHOUT 07/04/2017 IRASEMA BARTON APRN Ot R05 COUGH 07/04/2017 IRASEMA BARTON APRN Ot Z79.02 SHELTER (CURRENT) USE OF ANTITHROMBOTI 07/04/2017 IRASEMA BARTON APRN Ot Z79.82 SHELTER (CURRENT) USE OF ASPIRIN 07/04/2017 IRASEMA BARTON APRN Ot Z87.891 PERSONAL HISTORY OF NICOTINE DEPENDENCE 07/04/2017 IRASEMA BARTON APRN Ot Z90.49 ACQUIRED ABSENCE OF OTHER SPECIFIED PART 07/04/2017 IRASEMA BARTON APRN Ot Z95 .5 PRESENCE OF CORONARY ANGIOPLASTY IMPLANT 07/14/2017 CHRISTIAN GONZALEZ CURING PRESS OPERATOR Ot R06.00 DYSPNEA, UNSPECIFIED 07/14/2017 CHRISTIAN GONZALEZ CURING PRESS OPERATOR Ot Z87.01 PERSONAL HISTORY OF PNEUMONIA (RECURRENT 07/15/2017 W 486 PNEUMO BRUCE, ORGANISM UNSPECIFIED 07/15/2017 W J18.1 LOBA R PNEUMONIA, UNSPECIFIED ORGANISM 07/27/2017 SANDRINE JIMENEZ MD Ot E78.00 PURE HYPERCHOLESTEROLEMIA, UNSPECIFIED 07/27/2017 SANDRINE JIMENEZ MD Ot G47.30 SLEEP APNEA, UNSPECIFIED 07/27/2017 SANDRINE JIMENEZ MD Ot I10 ESSENTIAL (PRIMARY) HYPERTENSION 07/27/2017 SANDRINE JIMENEZ MD Ot I25.10 ATHSCL HEART DISEASE OF [place] CORONARY 07/27/2017 SANDRINE JIMENEZ MD Ot I25 .2 OLD MYOCARDIAL INFARCTION 07/27/2017 SANDRINE JIMENEZ MD Ot J20 .8 ACUTE BRONCHITIS DUE TO OTHER SPECIFIED 07/27/2017 SANDRINE JIMENEZ MD Ot J44 .1 CHRONIC OBSTRUCTIVE PULMONARY DISEASE W 07/27/2017 SANDRINE JIMENEZ MD Ot J45.909 UNSPECIFIED ASTHMA, UNCOMPLICATED 07/27/2017 SANDRINE JIMENEZ MD Ot K21 .9 GASTRO-ESOPHAGEAL REFLUX DISEASE WITHOUT 07/27/2017 SANDRINE JIMENEZ MD Ot R73 .9 HYPERGLYCEMIA, UNSPECIFIED 07/27/2017 SANDRINE JIMENEZ MD Ot T38.0X5A ADVERSE EFFECT OF GLUCOCORT/SYNTH ANALOG 07/27/2017 SANDRINE JIMENEZ MD Ot Z87.01 PERSONAL HISTORY OF PNEUMONIA (RECURRENT 07/27/2017 SANDRINE JIMENEZ MD Ot Z87.891 PERSONAL HISTORY OF NICOTINE DEPENDENCE 07/27/2017 SANDRINE JIMENEZ MD Ot Z95 .5 PRESENCE OF CORONARY ANGIOPLASTY IMPLANT 08/03/2017 SALVADOR BAIN AYDE Ot E78.00 PURE HYPERCHOLESTEROLEMIA, UNSPECIFIED 08/03/2017 SALVADOR BAIN AYDE Ot G47.30 SLEEP APNEA, UNSPECIFIED 08/03/2017 FRANCO DO, AYDE Ot I25.10 ATHSCL HEART DISEASE OF [place] CORONARY 08/03/2017 AYDE FRANCO DO Ot I25.2 OLD MYOCARDIAL INFARCTION 08/03/2017 AYDE FRANCO DO Ot J18.9 PNEUMONIA, UNSPECIFIED ORGANISM 08/03/2017 AYDE FRANCO DO Ot J30.2 OTHER SEASONAL ALLERGIC RHINITIS 08/03/2017 AYDE FRANCO DO Ot J34.89 OTHER SPECIFIED DISORDERS OF NOSE AND NA 08/03/2017 AYDE FRANCO DO Ot J44.0 CHRONIC OBSTRUCTIVE PULMON DISEASE W ACU 08/03/2017 AYDE FRANCO DO Ot J44.1 CHRONIC OBSTRUCTIVE PULMONARY DISEASE W 08/03/2017 AYDE FRANCO DO Ot J98.8 OTHER SPECIFIED RESPIRATORY DISORDERS 08/03/2017 AYDE FRANCO DO Ot K21.9 GASTRO-ESOPHAGEAL REFLUX DISEASE WITHOUT 08/03/2017 AYDE FRANCO DO Ot R06.03 ACUTE RESPIRATORY DISTRESS 08/03/2017 AYDE FRANCO DO Ot R73.9 HYPERGLYCEMIA, UNSPECIFIED 08/03/2017 AYDE FRANCO DO Ot T38.0X 5A ADVERSE EFFECT OF GLUCOCORT/SYNTH ANALOG 08/03/2017 AYDE FRANCO DO Ot Z79.02 SHELTER (CURRENT) USE OF ANTITHROMBOTI 08/03/2017 AYDE FRANCO DO Ot Z79.52 SHELTER (CURRENT) USE OF SYSTEMIC STER 08/03/2017 AYDE FRANCO DO Ot Z87.89 1 PERSONAL HISTORY OF NICOTINE DEPENDENCE 08/03/2017 AYDE FRANCO DO Ot Z95.5 PRESENCE OF CORONARY ANGIOPLASTY IMPLANT 08/04/2017 CHRISTIAN GONZALEZ Ot R06.00 DYSPNEA, UNSPECIFIED 08/04/2017 CHRISTIAN GONZALEZ CURING PRESS OPERATOR Ot Z87.01 PERSONAL HISTORY OF PNEUMONIA (RECURRENT 08/26/2017 W 786.05 MARC RTNESS OF BREATH 08/26/2017 W 786.2 COUGH 08/26/2017 W R05 COUGH 08/26/2017 W R06.02 MARC RTNESS OF BREATH 03/09/2018 ADRYAN NAVARRO MD Ot 272. 4 HYPERLIPIDEMIA NEC/NOS 03/09/2018 ADRYAN NAVARRO MD Ot 278. 00 OBESITY, NOS 03/09/2018 ADRYAN NAVARRO MD Ot 401. 9 HYPERTENSION NOS 03/09/2018 ADRYAN NAVARRO MD Ot 414. 01 CORONARY ATHEROSCLEROSIS OF [place] CORON 03/09/2018 ADRYAN NAVARRO MD Ot 433. 10 CAROTID ARTERY OCCLUSION W O CEREBRAL IN 03/09/2018 ADRYAN NAVARRO MD Ot 272. 4 HYPERLIPIDEMIA NEC/NOS 03/09/2018 ADRYAN NAVARRO MD Ot 278. 00 OBESITY, NOS 03/09/2018 ADRYAN NAVARRO MD Ot 397. 0 TRICUSPID VALVE DISEASE 03/09/2018 ADRYAN NAVARRO MD Ot 401. 9 HYPERTENSION NOS 03/09/2018 ADRYAN NAVARRO MD Ot 414. 00 CORON ATHEROSCLER NOS TYPE VESSEL, NATIV 03/09/2018 ADRYAN NAVARRO MD Ot 424. 0 MITRAL VALVE DISORDER 03/09/2018 JULIO CÉSAR HOWELL MD Ot 433.10 CAROTID ARTERY OCCLUSION W O CEREBRAL IN 03/09/2018 JULIO CÉSAR HOWELL MD Ot V72.81 [id number] CARDIOVASCULAR 03/09/2018 JULIO CÉSAR HOWELL MD Ot V72.83 EXAM PRE-OPERATIVE NEC 03/09/2018 JULIO CÉSAR HOWELL MD Ot V72.84 EXAM PRE-OPERATIVE NOS 03/09/2018 JULIO CÉSAR HOWELL MD Ot V74.8 SCREEN-BACTERIAL DIS NEC 03/09/2018 ADRYAN NAVARRO MD Ot E78. 2 MIXED HYPERLIPIDEMIA 03/09/2018 ADRYAN NAVARRO MD Ot I10 ESSENTIAL (PRIMARY) HYPERTENSION 03/09/2018 ADRYAN NAVARRO MD Ot I25. 10 ATHSCL HEART DISEASE OF [place] CORONARY 03/09/2018 ADRYAN NAVARRO MD Ot I65. 23 OCCLUSION AND STENOSIS OF BILATERAL [place] 03/09/2018 ADRYAN NAVARRO MD Ot R06. 09 OTHER FORMS OF DYSPNEA 03/09/2018 JOAQUIN NATION Ot E78.2 MIXED HYPERLIPIDEMIA 03/09/2018 JOAQUIN NATION Ot I10 ESSENTIAL (PRIMARY) HYPERTENSION 03/09/2018 JOAQUIN NATION Ot I25.10 ATHSCL HEART DISEASE OF [place] CORONARY 03/09/2018 JOAQUIN NATION Ot I65.23 OCCLUSION AND STENOSIS OF [place]ILATERAL [place] 03/09/2018 CHRISTIAN GONZALEZ Ot R06.00 DYSPNEA, UNSPECIFIED 03/09/2018 CHRISTIAN GONZALEZ KAREN Ot Z87.01 PERSONAL HISTORY OF PNEUMONIA (RECURRENT 03/13/2018 ADRYAN NAVARRO MD Ot 272. 4 HYPERLIPIDEMIA NEC/NOS 03/13/2018 ADRYAN NAVARRO MD Ot 278. 00 OBESITY, NOS 03/13/2018 ADRYAN NAVARRO MD Ot 401. 9 HYPERTENSION NOS 03/13/2018 ADRYAN NAVARRO MD Ot 414. 01 CORONARY ATHEROSCLEROSIS OF [place] CORON 03/13/2018 ADRYAN NAVARRO MD Ot 433. 10 CAROTID ARTERY OCCLUSION W O CEREBRAL IN 03/13/2018 ADRYAN NAVARRO MD Ot 272. 4 HYPERLIPIDEMIA NEC/NOS 03/13/2018 ADRYAN NAVARRO MD Ot 278. 00 OBESITY, NOS 03/13/2018 ADRYAN NAVARRO MD Ot 397. 0 TRICUSPID VALVE DISEASE 03/13/2018 ADRYAN NAVARRO MD Ot 401. 9 HYPERTENSION NOS 03/13/2018 ADRYAN NAVARRO MD Ot 414. 00 CORON ATHEROSCLER NOS TYPE VESSEL, NATIV 03/13/2018 ADRYAN NAVARRO MD Ot 424. 0 MITRAL VALVE DISORDER 03/13/2018 JULIO CÉSAR HOWELL MD Ot 433.10 CAROTID ARTERY OCCLUSION W O CEREBRAL IN 03/13/2018 JULIO CÉSAR HOWELL MD Ot V72.81 [id number] CARDIOVASCULAR 03/13/2018 JULIO CÉSAR HOWELL MD Ot V72.83 EXAM PRE-OPERATIVE NEC 03/13/2018 JULIO CÉSAR HOWELL MD Ot V72.84 EXAM PRE-OPERATIVE NOS 03/13/2018 JULIO CÉSAR HOWELL MD Ot V74.8 SCREEN-BACTERIAL DIS NEC 03/13/2018 ADRYAN NAVARRO MD Ot E78. 2 MIXED HYPERLIPIDEMIA 03/13/2018 ADRYAN NAVARRO MD Ot I10 ESSENTIAL (PRIMARY) HYPERTENSION 03/13/2018 ADRYAN NAVARRO MD Ot I25. 10 ATHSCL HEART DISEASE OF [place] CORONARY 03/13/2018 ADRYAN NAVARRO MD Ot I65. 23 OCCLUSION AND STENOSIS OF BILATERAL [place] 03/13/2018 ADRYAN NAVARRO MD Ot R06. 09 OTHER FORMS OF DYSPNEA 03/13/2018 JOAQUIN NATION Ot E78.2 MIXED HYPERLIPIDEMIA 03/13/2018 JOAQUIN NATION Ot I10 ESSENTIAL (PRIMARY) HYPERTENSION 03/13/2018 JOAQUIN NATION Ot I25.10 ATHSCL HEART DISEASE OF [place] CORONARY 03/13/2018 JOAQU[place] NATION Ot I65.23 OCCLUSION AND STENOSIS OF [place]ILATERAL [place] 03/13/2018 CHRISTIAN GONZALEZ KAREN Ot R06.00 DYSPNEA, UNSPECIFIED 03/13/2018 CHRISTIAN GONZALEZ KAREN Ot Z87.01 PERSONAL HISTORY OF PNEUMONIA (RECURRENT 03/15/2018 CLAY BROWN APRN Ot I25.10 ATHSCL HEART DISEASE OF [place] CORONARY 03/15/2018 CLAY BROWN APRN Ot I70.0 ATHEROSCLEROSIS OF [place] 03/15/2018 CLAY BROWN WORKERS COMPENSATION ANALYST Ot J30.2 OTHER SEASONAL ALLERGIC RHINITIS 03/15/2018 CLAY BROWN WORKERS COMPENSATION ANALYST Ot J43.8 OTHER EMPHYSEMA 03/15/2018 CLAY BROWN WORKERS COMPENSATION ANALYST Ot Z87.891 PERSONAL HISTORY OF NICOTINE DEPENDENCE 04/10/2018 CLAY BROWN APRN Ot I25.10 ATHSCL HEART DISEASE OF [place] CORONARY 04/10/2018 CLAY BROWN APRN Ot I70.0 ATHEROSCLEROSIS OF [place] 04/10/2018 CLAY BROWN APRN Ot J30.2 OTHER SEASONAL ALLERGIC RHINITIS 04/10/2018 CLAY BROWN WORKERS COMPENSATION ANALYST Ot J43.8 OTHER EMPHYSEMA 04/10/2018 CLAY BROWN WORKERS COMPENSATION ANALYST Ot Z87.891 PERSONAL HISTORY OF NICOTINE DEPENDENCE 07/12/2018 W 382.9 UNSP ECIFIED OTITIS MEDIA 07/12/2018 W 465.9 ACUT E UPPER RESPIRATORY INFECTIONS OF UNSPECIFIED SITE 07/12/2018 W 478.19 OTH ER DISEASE OF NASAL CAVITY AND SINUSES 07/12/2018 W H66.92 COLEMAN TIS MEDIA, UNSPECIFIED, LEFT EAR 07/12/2018 W J06.9 ACUT E UPPER RESPIRATORY INFECTION, UNSPECIFIED 07/12/2018 W R09.81 KIM AL CONGESTION 09/05/2018 RAYA DO, CAROLEE Ot M54.5 LOW BACK PAIN 10/04/2018 RAYA DO, CAROLEE Ot M54.5 LOW BACK PAIN 11/02/2018 RAYA DO, CAROLEE Ot M54.5 LOW BACK PAIN 11/22/2018 RAYA DO, CAROLEE Ot M54.5 LOW BACK PAIN 11/23/2018 RAYA DO, CAROLEE Ot M54.5 LOW BACK PAIN 11/28/2018 RAYA DO, CAROLEE Ot M54.5 LOW BACK PAIN 01/23/2019 RAYA DO, CAROLEE Ot M54.5 LOW BACK PAIN 02/08/2019 RAYA DO, CAROLEE Ot M54.5 LOW BACK PAIN 02/13/2019 Ashley, Susana W 380.4 IMPACTED CERUMEN 02/13/2019 Ashley, Susana W H61.21 IMPACTED CERUMEN, RIGHT EAR 02/13/2019 Ashley, Susana W 380.4 IMPACTED CERUMEN 02/13/2019 Ashley, Susana W H61.21 IMPACTED CERUMEN, RIGHT EAR 02/13/2019 Ashley, Susana W 380.4 IMPACTED CERUMEN 02/13/2019 Ashley, Susana W H61.21 IMPACTED CERUMEN, RIGHT EAR 02/13/2019 Ashley, Susana W 380.4 IMPACTED CERUMEN 02/13/2019 Ashley, Susana W 477.8 ALLERGIC RHINITIS DUE TO OTHER ALLERGEN 02/13/2019 Ashley, Susana W H61.21 IMPACTED CERUMEN, RIGHT EAR 02/13/2019 Ashley, Susana W J30.2 OTHER SEASONAL ALLERGIC RHINITIS 02/13/2019 Ashley, Susana W 380.4 IMPACTED CERUMEN 02/13/2019 Ashley, Susana W 477.8 ALLERGIC RHINITIS DUE TO OTHER ALLERGEN 02/13/2019 Ashley, Susana W H61.21 IMPACTED CERUMEN, RIGHT EAR 02/13/2019 Ashley, Susana W J30.2 OTHER SEASONAL ALLERGIC RHINITIS 02/13/2019 Ashley, Susana W 380.4 IMPACTED CERUMEN 02/13/2019 Ashley, Susana W 477.8 ALLERGIC RHINITIS DUE TO OTHER ALLERGEN 02/13/2019 Ashley, Susana W H61.21 IMPACTED CERUMEN, RIGHT EAR 02/13/2019 Ashley, Susana W J30.2 OTHER SEASONAL ALLERGIC RHINITIS 02/22/2019 RAYA DO, CAROLEE Ot M54.5 LOW BACK PAIN 02/26/2019 RAYA DO, CAROLEE Ot M54.5 LOW BACK PAIN 03/13/2019 Ashley, Susana W 724.2 LUMBAGO 03/13/2019 Ashley, Susana W M54.5 LOW BACK PAIN 03/13/2019 Ashley, Susana W 724.2 LUMBAGO 03/13/2019 Ashley, Susana W M54.5 LOW BACK PAIN 03/13/2019 Ashley, Susana W 278.00 OBESITY, UNSPECIFIED 03/13/2019 Ashley, Susana W 724.2 LUMBAGO 03/13/2019 Ashley, Susana W E66.9 OBESITY, UNSPECIFIED 03/13/2019 Ashley, Susana W M54.5 LOW BACK PAIN 03/13/2019 Ashley, Susana W 278.00 OBESITY, UNSPECIFIED 03/13/2019 Ashley, Susana W 724.2 LUMBAGO 03/13/2019 Ashley, Susana W E66.9 OBESITY, UNSPECIFIED 03/13/2019 Ashley, Susana W M54.5 LOW BACK PAIN 03/13/2019 Ashley, Susana W 278.00 OBESITY, UNSPECIFIED 03/13/2019 Ashley, Susana W 724.2 LUMBAGO 03/13/2019 Ashley, Susana W E66.9 OBESITY, UNSPECIFIED 03/13/2019 Ashley, Susana W M54.5 LOW BACK PAIN 05/18/2019 JOAQUIN NATION Ot I25.10 ATHSCL HEART DISEASE OF [place] CORONARY 05/18/2019 JOAQUIN NATION Ot I65.29 OCCLUSION AND STENOSIS OF UNSPECIFIED CA 05/18/2019 JOAQUIN NATION Ot J44.9 CHRONIC OBSTRUCTIVE PULMONARY DISEASE, U 05/21/2019 ADRYAN NAVARRO MD Ot E78. 2 MIXED HYPERLIPIDEMIA 05/21/2019 ADRYAN NAVARRO MD Ot I10 ESSENTIAL (PRIMARY) HYPERTENSION 05/21/2019 ADRYAN NAVARRO MD Ot I25. 10 ATHSCL HEART DISEASE OF [place] CORONARY 05/21/2019 ADRYAN NAVARRO MD Ot I65. 23 OCCLUSION AND STENOSIS OF [place]ILATERAL [place] 05/21/2019 ADRYAN NAVARRO MD Ot R06. 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 Ot I70.0 ATHEROSCLEROSIS OF [place] 05/21/2019 CLAY BROWN APRN Ot J30.2 OTHER SEASONAL ALLERGIC RHINITIS 05/21/2019 CLAY BROWN APRN Ot J43.8 OTHER EMPHYSEMA 05/21/2019 CLAY BROWN APRN Ot Z87.891 PERSONAL HISTORY OF NICOTINE DEPENDENCE 05/21/2019 JOA[place]IN NATION Ot I25.10 ATHSCL HEART DISEASE OF [place] CORONARY 05/21/2019 JOAQUIN NATION Ot I65.29 OCCLUSION AND STENOSIS OF UNSPECIFIED CA 05/21/2019 JOA[place]IN NATION Ot J44.9 CHRONIC OBSTRUCTIVE PULMONARY DISEASE, U 05/23/2019 JOAQUIN NATION Ot I25.10 ATHSCL HEART DISEASE OF [place] CORONARY 05/23/2019 JOAQUIN NATION Ot I65.29 OCCLUSION AND STENOSIS OF UNSPECIFIED CA 05/23/2019 JOAQUIN NATION Ot J44.9 CHRONIC OBSTRUCTIVE PULMONARY DISEASE, U 06/11/2019 JOAQUIN NATION Ot I25.10 ATHSCL HEART DISEASE OF [place] CORONARY 06/11/2019 JOAQUIN NATION Ot I65.29 OCCLUSION AND STENOSIS OF UNSPECIFIED CA 06/11/2019 JOA[place]IN NATION Ot J44.9 CHRONIC OBSTRUCTIVE PULMONARY DISEASE, U 06/12/2019 JOAQUIN NATION Ot I25.10 ATHSCL HEART DISEASE OF [place] CORONARY 06/12/2019 JOAQUIN NATION Ot I65.29 OCCLUSION AND STENOSIS OF UNSPECIFIED CA 06/12/2019 JOA[place]IN NATION Ot J44.9 CHRONIC OBSTRUCTIVE PULMONARY DISEASE, U 06/26/2019 THEA SWANSON DO Ot Z01.818 ENCOUNTER FOR OTHER PREPROCEDURAL EXAMIN 07/04/2019 THEA SWANSON DO Ot E66 .9 OBESITY, UNSPECIFIED 07/04/2019 THEA SWANSON DO Ot G47.33 OBSTRUCTIVE SLEEP APNEA (ADULT) (PEDIATR 07/04/2019 THEA SWANSON DO Ot I25.10 ATHSCL HEART DISEASE OF [place] CORONARY 07/04/2019 THEA SWANSON DO Ot J44 .9 CHRONIC OBSTRUCTIVE PULMONARY DISEASE, U 07/04/2019 THEA SWANSON DO Ot K21 .9 GASTRO-ESOPHAGEAL REFLUX DISEASE WITHOUT 07/04/2019 THEA SWANSON DO Ot M48.062 SPINAL STENOSIS, LUMBAR REGION WITH NEUR 07/04/2019 THEA SWANSON DO Ot M54.16 RADICULOPATHY, LUMBAR REGION 07/04/2019 THEA SWANSON DO Ot Z68.37 BODY MASS INDEX (BMI) 37.0-37.9, ADULT 07/04/2019 THEA SWANSON DO Ot Z87.891 PERSONAL HISTORY OF NICOTINE DEPENDENCE 07/04/2019 THEA SWANSON DO Ot Z95 .5 PRESENCE OF CORONARY ANGIOPLASTY IMPLANT 07/05/2019 RUSSELL MORRIS MD Ot E78.00 PURE HYPERCHOLESTEROLEMIA, UNSPECIFIED 07/05/2019 RUSSELL MORRIS MD Ot I25.10 ATHSCL HEART DISEASE OF [place] CORONARY 07/05/2019 RUSSELL MORRIS MD Ot I25.2 OLD MYOCARDIAL INFARCTION 07/05/2019 RUSSELL MORRIS MD Ot J18.9 PNEUMONIA, UNSPECIFIED ORGANISM 07/05/2019 RUSSELL MORRIS MD Ot J44.0 CHR OBSTRUCTIVE PULMON DISEASE WITH (ACU 07/05/2019 RUSSELL MORRIS MD Ot K21.9 GASTRO-ESOPHAGEAL REFLUX DISEASE WITHOUT 07/05/2019 RUSSELL MORRIS MD Ot R53.1 WEAKNESS 07/05/2019 RUSSELL MORRIS MD Ot Z79.51 RN SURGICAL PCU (CURRENT) USE OF INHALED STERO 07/05/2019 RUSSELL MORRIS MD Ot Z87.891 PERSONAL HISTORY OF NICOTINE DEPENDENCE 07/05/2019 RUSSELL MORRIS MD Ot Z90.49 ACQUIRED ABSENCE OF OTHER SPECIFIED PART 07/05/2019 RUSSELL MORRIS MD Ot Z95.5 PRESENCE OF CORONARY ANGIOPLASTY IMPLANT 07/05/2019 RUSSELL MORRIS MD Ot Z98.1 ARTHRODESIS STATUS 07/09/2019 RUSSELL MORRIS MD Ot E78.00 PURE HYPERCHOLESTEROLEMIA, UNSPECIFIED 07/09/2019 RUSSELL MORRIS MD Ot I25.10 ATHSCL HEART DISEASE OF [place] CORONARY 07/09/2019 RUSSELL MORRIS MD, Ot I25.2 OLD MYOCARDIAL INFARCTION 07/09/2019 RUSSELL MORRIS MD, Ot J18.9 PNEUMONIA, UNSPECIFIED ORGANISM 07/09/2019 RUSSELL MORRIS MD, Ot J44.0 CHR OBSTRUCTIVE PULMON DISEASE WITH (ACU 07/09/2019 RUSSELL MORRIS MD, Ot K21.9 GASTRO-ESOPHAGEAL REFLUX DISEASE WITHOUT 07/09/2019 RUSSELL MORRIS MD Ot R53.1 WEAKNESS 07/09/2019 RUSSELL MORRIS MD, Ot Z79.51 SHELTER (CURRENT) USE OF INHALED STERO 07/09/2019 RUSSELL MORRIS MD Ot Z87.891 PERSONAL HISTORY OF NICOTINE DEPENDENCE 07/09/2019 RUSSELL MORRIS MD Ot Z90.49 ACQUIRED ABSENCE OF OTHER SPECIFIED PART 07/09/2019 RUSSELL MORRIS MD Ot Z95.5 PRESENCE OF CORONARY ANGIOPLASTY IMPLANT 07/09/2019 RUSSELL MORRIS MD Ot Z98.1 ARTHRODESIS STATUS 07/22/2019 AYDE FRANCO DO Ot A41.9 SEPSIS, UNSPECIFIED ORGANISM 07/22/2019 TERENCE FRANCO DOI Ot B37.0 CANDIDAL STOMATITIS 07/22/2019 AYDE FRANCO DO Ot E66.01 MORBID (SEVERE) OBESITY DUE TO EXCESS CA 07/22/2019 AYDE FRANCO DO Ot E78.5 HYPERLIPIDEMIA, UNSPECIFIED 07/22/2019 SALVADOR BAIN AYDE Ot E83.39 OTHER DISORDERS OF PHOSPHORUS METABOLISM 07/22/2019 TERENCE FRANCO DOI Ot E87.1 HYPO-OSMOLALITY AND HYPONATREMIA 07/22/2019 AYDE FRANCO DO Ot E87.2 ACIDOSIS 07/22/2019 FRANCO DO AYDE Ot E87.6 HYPOKALEMIA 07/22/2019 SALVADOR BAIN, AYDE Ot G47.33 OBSTRUCTIVE SLEEP APNEA (ADULT) (PEDIATR 07/22/2019 FRANCO DO, AYDE Ot I07.1 RHEUMATIC TRICUSPID INSUFFICIENCY 07/22/2019 FRANCO DO, AYDE Ot I10 ESSENTIAL (PRIMARY) HYPERTENSION 07/22/2019 FRANCO DO AYDE Ot I25.10 ATHSCL HEART DISEASE OF [place] CORONARY 07/22/2019 FRANCO DO, AYDE Ot I25.2 OLD MYOCARDIAL INFARCTION 07/22/2019 FRANCO DO, AYDE Ot J18.9 PNEUMONIA, UNSPECIFIED ORGANISM 07/22/2019 SALVADOR BAIN AYDE Ot J44.9 CHRONIC OBSTRUCTIVE PULMONARY DISEASE, U 07/22/2019 FRANCO DO, AYDE Ot K21.9 GASTRO-ESOPHAGEAL REFLUX DISEASE WITHOUT 07/22/2019 FRANCO DO, AYDE Ot K59.03 DRUG INDUCED CONSTIPATION 07/22/2019 SALVADOR BAIN AYDE Ot M54.16 RADICULOPATHY, LUMBAR REGION 07/22/2019 FRANCO DO AYDE Ot N40.0 BENIGN PROSTATIC HYPERPLASIA WITHOUT LOW 07/22/2019 FRANCO DO AYDE Ot R60.0 LOCALIZED EDEMA 07/22/2019 SALVADOR BAIN AYDE Ot Z47.89 ENCOUNTER FOR OTHER ORTHOPEDIC AFTERCARE 07/22/2019 SALVADOR BAIN AYDE Ot Z68.38 BODY MASS INDEX (BMI) 38.0-38.9, ADULT 07/22/2019 SALVADOR BAIN AYDE Ot Z87.89 1 PERSONAL HISTORY OF NICOTINE DEPENDENCE 07/22/2019 SALVADOR BAIN AYDE Ot Z90.49 ACQUIRED ABSENCE OF OTHER SPECIFIED PART 07/22/2019 SALVADOR BAIN AYDE Ot Z91.19 PATIENT'S NONCOMPLIANCE W [facility] MEDICAL TR 07/22/2019 SALVADOR BAIN AYDE Ot Z95.5 PRESENCE OF CORONARY ANGIOPLASTY IMPLANT Procedures Code Description Performed By Per formed On [id number] FU LILI 2-4 L JT W INTBD FUS DEV, ANT ERNESTINA 07/02/2019 [id number] FU LILI 2-4 L JT W NONAUT SUB, POST APPR 07/02/2019 [id number] RE SECTION OF LUMBAR VERTEBRAL DISC, OPEN 07/02/2019 Results Test Result Range Complete blood count (CBC) with automate d white blood cell (WBC) differential - 07/05/16 19:10 Blood leukocytes automated count (number/volume) 9.1 10*3/uL 4.3-11.0 Blood erythrocytes automated count (number/volume) 4.65 10*6/uL 4.35-5.85 Venous blood hemoglobin measurement (mass/volume) 15.1 g/dL 13.3-17.7 Blood hematocrit (volume fraction) 44 % 40-54 Automated erythrocyte mean corpuscular volume 94 [ foz_us] 80-99 Automated erythrocyte mean corpuscular h emoglobin (mass per erythrocyte) 33 pg 25-34 Automated erythrocyte mean corpuscular h emoglobin concentration measurement (mass/volume) 35 g/dL 32-36 Automated erythrocyte distribution width ratio 13. 2 % 10.0- 14.5 Automated blood platelet count (count/volume) 318 10*3/uL [...] 10*3 1.0-4.0 Blood monocytes automated count (number/volume) 0. 9 10*3 0.0-1.0 Automated eosinophil count 0.4 10*3/uL 0 .0-0.3 Automated blood basophil count (count/volume) 0.0 10*3/uL 0.0-0.1 PT panel in platelet poor plasma by coag ulation assay - 07/05/16 19:10 Prothrombin time (PT) in platelet poor plasma by coagu lation assay 13.2 s 12.2-14.7 INR in platelet poor plasma or blood by coagulation as say 1.0 0.8-1.4 Activated partial thromboplastin time (a PTT) in platelet poor plasma bycoagulation assay - 07/05/16 19:10 Activated partial thromboplastin time (a PTT) in platelet poor plasma bycoagulation assay 31 s 24-35 Comprehensive metabolic panel - 07/05/16 19:10 Serum or plasma sodium measurement (moles/volume) 131 mmol/L 135-145 Serum or plasma potassium measurement (moles/volume) 4.2 mmol/L 3.6-5.0 Serum or plasma chloride measurement (moles/volume) 101 mmol/L 98-107 Carbon dioxide 19 mmol/L 21-32 Serum or plasma anion gap determination (moles/volume) 11 mmol/L 5-14 Serum or plasma urea nitrogen measurement (mass/volume ) 11 mg/dL 7-18 Serum or plasma creatinine measurement (mass/volume) 0.93 mg/dL 0.60-1.30 Serum or plasma urea nitrogen/creatinine mass ratio 12 NRG Serum or plasma creatinine measurement w ith calculation of estimated glomerular filtration rate > NRG Serum or plasma glucose measurement (mass/volume) 111 mg/dL 70-105 Serum or plasma calcium measurement (mass/volume) 9.0 mg/dL 8.5-10.1 Serum or plasma total bilirubin measurement (mass/volu me) 0.4 mg/dL 0.1-1.0 Serum or plasma alkaline phosphatase kelsey surement (enzymatic activity/volume) 112 U/L 40-136 Serum or plasma aspartate aminotransfera se measurement (enzymatic activity/volume) 22 U/L 5-34 Serum or plasma alanine aminotransferase measurement (enzymatic activity/volume) 34 U/L 0-55 Serum or plasma protein measurement (mass/volume) 6.6 g/dL 6.4-8.2 Serum or plasma albumin measurement (mass/volume) 4.0 g/dL 3.2-4.5 Magnesium - 07/05/16 19:10 Magnesium 2.1 mg/dL 1.8-2.4 Serum or plasma troponin i.cardiac measu rement (mass/volume) - 07/05/16 19:10 Serum or plasma troponin i.cardiac measurement (mass/v olume) < ng/mL <0.30 Myoglobin, serum - 07/05/16 19:10 Myoglobin, serum 66.2 ng/mL 10.0-92.0 Serum or plasma troponin i.cardiac measu rement (mass/volume) - 07/05/16 20:10 Serum or plasma troponin i.cardiac measurement (mass/v olume) < ng/mL <0.30 Complete blood count (CBC) with automate d white blood cell (WBC) differential - 07/15/16 01:19 Blood leukocytes automated count (number/volume) 9.9 10*3/uL 4.3-11.0 Blood erythrocytes automated count (number/volume) 4.64 10*6/uL 4.35-5.85 Venous blood hemoglobin measurement (mass/volume) 15.2 g/dL 13.3-17.7 Blood hematocrit (volume fraction) 43 % 40-54 Automated erythrocyte mean corpuscular volume 93 [ foz_us] 80-99 Automated erythrocyte mean corpuscular h emoglobin (mass per erythrocyte) 33 pg 25-34 Automated erythrocyte mean corpuscular h emoglobin concentration measurement (mass/volume) 35 g/dL 32-36 Automated erythrocyte distribution width ratio 13. 1 % 10.0- 14.5 Automated blood platelet count (count/volume) 328 10*3/uL [...] 10*3 1.0-4.0 Blood monocytes automated count (number/volume) 0. 9 10*3 0.0-1.0 Automated eosinophil count 0.3 10*3/uL 0 .0-0.3 Automated blood basophil count (count/volume) 0.0 10*3/uL 0.0-0.1 PT panel in platelet poor plasma by coag ulation assay - 07/15/16 01:19 Prothrombin time (PT) in platelet poor plasma by coagu lation assay 13.1 s 12.2-14.7 INR in platelet poor plasma or blood by coagulation as say 1.0 0.8-1.4 Activated partial thromboplastin time (a PTT) in platelet poor plasma bycoagulation assay - 07/15/16 01:19 Activated partial thromboplastin time (a PTT) in platelet poor plasma bycoagulation assay 32 s 24-35 Comprehensive metabolic panel - 07/15/16 01:19 Serum or plasma sodium measurement (moles/volume) 133 mmol/L 135-145 Serum or plasma potassium measurement (moles/volume) 3.6 mmol/L 3.6-5.0 Serum or plasma chloride measurement (moles/volume) 100 mmol/L 98-107 Carbon dioxide 18 mmol/L 21-32 Serum or plasma anion gap determination (moles/volume) 15 mmol/L 5-14 Serum or plasma urea nitrogen measurement (mass/volume ) 9 mg/dL 7-18 Serum or plasma creatinine measurement (mass/volume) 0.99 mg/dL 0.60-1.30 Serum or plasma urea nitrogen/creatinine mass ratio 9 NRG Serum or plasma creatinine measurement w ith calculation of estimated glomerular filtration rate > NRG Serum or plasma glucose measurement (mass/volume) 205 mg/dL 70-105 Serum or plasma calcium measurement (mass/volume) 8.8 mg/dL 8.5-10.1 Serum or plasma total bilirubin measurement (mass/volu me) 0.5 mg/dL 0.1-1.0 Serum or plasma alkaline phosphatase kelsey surement (enzymatic activity/volume) 102 U/L 40-136 Serum or plasma aspartate aminotransfera se measurement (enzymatic activity/volume) 48 U/L 5-34 Serum or plasma alanine aminotransferase measurement (enzymatic activity/volume) 46 U/L 0-55 Serum or plasma protein measurement (mass/volume) 6.6 g/dL 6.4-8.2 Serum or plasma albumin measurement (mass/volume) 3.9 g/dL 3.2-4.5 Magnesium - 07/15/16 01:19 Magnesium 2.1 mg/dL 1.8-2.4 Serum or plasma troponin i.cardiac measu rement (mass/volume) - 07/15/16 01:19 Serum or plasma troponin i.cardiac measurement (mass/v olume) < ng/mL <0.30 Myoglobin, serum - 07/15/16 01:19 Myoglobin, serum 60.7 ng/mL 10.0-92.0 Whole blood basic metabolic panel - 07/30 03:58 Serum or plasma sodium measurement (moles/volume) 133 mmol/L 135-145 Serum or plasma potassium measurement (moles/volume) 4.3 mmol/L 3.6-5.0 Serum or plasma chloride measurement (moles/volume) 103 mmol/L 98-107 Carbon dioxide 20 mmol/L 21-32 Serum or plasma anion gap determination (moles/volume) 10 mmol/L 5-14 Serum or plasma urea nitrogen measurement (mass/volume ) 8 mg/dL 7-18 Serum or plasma creatinine measurement (mass/volume) 0.86 mg/dL 0.60-1.30 Serum or plasma urea nitrogen/creatinine mass ratio 9 NRG Serum or plasma creatinine measurement w ith calculation of estimated glomerular filtration rate > NRG Serum or plasma glucose measurement (mass/volume) 114 mg/dL 70-105 Serum or plasma calcium measurement (mass/volume) 9.2 mg/dL 8.5-10.1 Serum or plasma phosphate measurement (m ass/volume) - 07/15/16 03:58 Serum or plasma phosphate measurement (mass/volume) 2.7 mg/dL 2.3-4.7 Magnesium - 07/15/16 03:58 Magnesium 2.4 mg/dL 1.8-2.4 Lipid 1996 panel - 07/15/16 03:58 Serum or plasma triglyceride measurement (mass/volume) 162 mg/dL <150 Serum or plasma cholesterol measurement (mass/volume) 120 mg/dL < 200 Serum or plasma cholesterol in HDL measurement (mass/v olume) 26 mg/dL 40-60 Cholesterol in LDL [mass/volume] in serum or plasma by direct assay 67 mg/dL 1-129 Serum or plasma cholesterol in VLDL measurement (mass/ volume) 32 mg/dL 5-40 Serum or plasma creatine kinase measurem ent (enzymatic activity/volume) - 07/15/16 07:15 Serum or plasma creatine kinase measurem ent (enzymatic activity/volume) 91 U/L 30-200 Serum or plasma troponin i.cardiac measu rement (mass/volume) - 07/15/16 07:15 Serum or plasma troponin i.cardiac measurement (mass/v olume) < ng/mL <0.30 Methicillin resistant Staphylococcus aur eus (MRSA) screening culture - 09/06/16 07:10 Methicillin resistant Staphylococcus aureus (MRSA) scr eening culture NEG NRG Complete blood count (CBC) with automate d white blood cell (WBC) differential - 07/03/17 23:20 Blood leukocytes automated count (number/volume) 7.9 10*3/uL 4.3-11.0 Blood erythrocytes automated count (number/volume) 4.63 10*6/uL 4.35-5.85 Venous blood hemoglobin measurement (mass/volume) 14.9 g/dL 13.3-17.7 Blood hematocrit (volume fraction) 42 % 40-54 Automated erythrocyte mean corpuscular volume 92 [ foz_us] 80-99 Automated erythrocyte mean corpuscular h emoglobin (mass per erythrocyte) 32 pg 25-34 Automated erythrocyte mean corpuscular h emoglobin concentration measurement (mass/volume) 35 g/dL 32-36 Automated erythrocyte distribution width ratio 13. 5 % 10.0- 14.5 Automated blood platelet count (count/volume) 276 10*3/uL [...] 10*3 1.0-4.0 Blood monocytes automated count (number/volume) 1. 5 10*3 0.0-1.0 Automated eosinophil count 0.0 10*3/uL 0 .0-0.3 Automated blood basophil count (count/volume) 0.0 10*3/uL 0.0-0.1 Blood manual differential performed dete ction - 07/03/17 23:20 Blood monocytes/100 leukocytes 20 % NRG Manual blood segmented neutrophils/100 leukocytes 64 % NRG Blood band neutrophils/100 leukocytes 1 % NRG Manual blood lymphocytes/100 leukocytes 11 % NRG Manual eosinophils/100 leukocytes in nose 0 % NRG Manual blood basophils/100 leukocytes 0 % NRG Blood lymphocytes variant/100 leukocytes 4 % NRG Blood erythrocyte morphology finding identification NORMAL NRG Influenza virus A and B antigen detectio n - 07/03/17 23:20 FLU RESULT NEGATIVE FOR INFLUENZA A AND B ANTIGENS BY IA NRG Whole blood basic metabolic panel - 06/14 06/30 23:20 Serum or plasma sodium measurement (moles/volume) 132 mmol/L 135-145 Serum or plasma potassium measurement (moles/volume) 3.7 mmol/L 3.6-5.0 Serum or plasma chloride measurement (moles/volume) 100 mmol/L 98-107 Carbon dioxide 20 mmol/L 21-32 Serum or plasma anion gap determination (moles/volume) 12 mmol/L 5-14 Serum or plasma urea nitrogen measurement (mass/volume ) 11 mg/dL 7-18 Serum or plasma creatinine measurement (mass/volume) 0.92 mg/dL 0.60-1.30 Serum or plasma urea nitrogen/creatinine mass ratio 12 NRG Serum or plasma creatinine measurement w ith calculation of estimated glomerular filtration rate > NRG Serum or plasma glucose measurement (mass/volume) 117 mg/dL 70-105 Serum or plasma calcium measurement (mass/volume) 9.4 mg/dL 8.5-10.1 Serum or plasma lithium measurement (mol es/volume) - 07/03/17 23:20 BNP level 84.4 pg/mL <100.0 Bacterial blood culture - 07/25/17 06:02 Bacterial blood culture NG NRG Blood lactic acid measurement (moles/vol ume) - 07/25/17 07:35 Blood lactic acid measurement (moles/volume) 1.95 mmol/L 0.50-2.00 Influenza virus A and B antigen detectio n - 07/25/17 07:55 FLU RESULT NEGATIVE FOR INFLUENZA A AND B ANTIGENS BY IA NR Complete blood count (CBC) with automate d white blood cell (WBC) differential - 07/25/17 08:02 Blood leukocytes automated count (number/volume) 15.2 10*3/uL 4.3-11.0 Blood erythrocytes automated count (number/volume) 4.74 10*6/uL 4.35-5.85 Venous blood hemoglobin measurement (mass/volume) 15.2 g/dL 13.3-17.7 Blood hematocrit (volume fraction) 43 % 40-54 Automated erythrocyte mean corpuscular volume 92 [ foz_us] 80-99 Automated erythrocyte mean corpuscular h emoglobin (mass per erythrocyte) 32 pg 25-34 Automated erythrocyte mean corpuscular h emoglobin concentration measurement (mass/volume) 35 g/dL 32-36 Automated erythrocyte distribution width ratio 13. 3 % 10.0- 14.5 Automated blood platelet count (count/volume) 367 10*3/uL 130-400 Automated blood platelet mean volume measurement 8.9 [foz_us] 7.4-10.4 Automated blood neutrophils/100 leukocytes 75 % 42-75 Automated blood lymphocytes/100 leukocytes 15 % 12-44 Blood monocytes/100 leukocytes 7 % 0-12 Automated blood eosinophils/100 leukocytes 3 % 0-10 Automated blood basophils/100 leukocytes 0 % 0-10 Blood neutrophils automated count (number/volume) 11.3 10*3 1.8-7.8 Blood lymphocytes automated count (number/volume) 2.3 10*3 1.0-4.0 Blood monocytes automated count (number/volume) 1. 1 10*3 0.0-1.0 Automated eosinophil count 0.5 10*3/uL 0 .0-0.3 Automated blood basophil count (count/volume) 0.0 10*3/uL 0.0-0.1 Comprehensive metabolic panel - 07/25/17 08:02 Serum or plasma sodium measurement (moles/volume) 133 mmol/L 135-145 Serum or plasma potassium measurement (moles/volume) 4.3 mmol/L 3.6-5.0 Serum or plasma chloride measurement (moles/volume) 102 mmol/L 98-107 Carbon dioxide 20 mmol/L 21-32 Serum or plasma anion gap determination (moles/volume) 11 mmol/L 5-14 Serum or plasma urea nitrogen measurement (mass/volume ) 11 mg/dL 7-18 Serum or plasma creatinine measurement (mass/volume) 0.90 mg/dL 0.60-1.30 Serum or plasma urea nitrogen/creatinine mass ratio 12 NRG Serum or plasma creatinine measurement w ith calculation of estimated glomerular filtration rate > NRG Serum or plasma glucose measurement (mass/volume) 127 mg/dL 70-105 Serum or plasma calcium measurement (mass/volume) 9.6 mg/dL 8.5-10.1 Serum or plasma total bilirubin measurement (mass/volu me) 0.6 mg/dL 0.1-1.0 Serum or plasma alkaline phosphatase kelsey surement (enzymatic activity/volume) 109 U/L 40-136 Serum or plasma aspartate aminotransfera se measurement (enzymatic activity/volume) 29 U/L 5-34 Serum or plasma alanine aminotransferase measurement (enzymatic activity/volume) 38 U/L 0-55 Serum or plasma protein measurement (mass/volume) 7.3 g/dL 6.4-8.2 Serum or plasma albumin measurement (mass/volume) 4.1 g/dL 3.2-4.5 Magnesium - 07/25/17 08:02 Magnesium 1.9 mg/dL 1.8-2.4 Serum or plasma troponin i.cardiac measu rement (mass/volume) - 07/25/17 08:02 Serum or plasma troponin i.cardiac measurement (mass/v olume) < ng/mL <0.30 PT panel in platelet poor plasma by coag ulation assay - 07/25/17 08:02 Prothrombin time (PT) in platelet poor plasma by coagu lation assay 14.6 s 12.2-14.7 INR in platelet poor plasma or blood by coagulation as say 1.1 0.8-1.4 Activated partial thromboplastin time (a PTT) in platelet poor plasma bycoagulation assay - 07/25/17 08:02 Activated partial thromboplastin time (a PTT) in platelet poor plasma bycoagulation assay 33 s 24-35 Blood manual differential performed dete ction - 07/25/17 08:02 Blood monocytes/100 leukocytes 2 % NRG Manual blood segmented neutrophils/100 leukocytes 70 % NRG Manual blood lymphocytes/100 leukocytes 17 % NRG Manual eosinophils/100 leukocytes in nose 6 % NRG Manual blood basophils/100 leukocytes 1 % NRG Blood lymphocytes variant/100 leukocytes 4 % NRG Blood erythrocyte morphology finding identification NORMAL NRG Serum or plasma C reactive protein measu rement (mass/volume) - 07/25/17 08:02 Serum or plasma C reactive protein measurement (mass/v olume) 0.50 mg/dL 0.00-0.50 Serum or plasma lithium measurement (mol es/volume) - 07/25/17 08:02 BNP level < pg/mL <100.0 Bacterial blood culture - 07/25/17 08:02 Bacterial blood culture NG NRG Complete blood count (CBC) with automate d white blood cell (WBC) differential - 07/26/17 06:13 Blood leukocytes automated count (number/volume) 14.2 10*3/uL 4.3-11.0 Blood erythrocytes automated count (number/volume) 4.50 10*6/uL 4.35-5.85 Venous blood hemoglobin measurement (mass/volume) 14.4 g/dL 13.3-17.7 Blood hematocrit (volume fraction) 41 % 40-54 Automated erythrocyte mean corpuscular volume 92 [ foz_us] 80-99 Automated erythrocyte mean corpuscular h emoglobin (mass per erythrocyte) 32 pg 25-34 Automated erythrocyte mean corpuscular h emoglobin concentration measurement (mass/volume) 35 g/dL 32-36 Automated erythrocyte distribution width ratio 13. 4 % 10.0- 14.5 Automated blood platelet count (count/volume) 354 10*3/uL 130-400 Automated blood platelet mean volume measurement 8.9 [foz_us] 7.4-10.4 Automated blood neutrophils/100 leukocytes 91 % 42-75 Automated blood lymphocytes/100 leukocytes 6 % 12-44 Blood monocytes/100 leukocytes 3 % 0-12 Automated blood eosinophils/100 leukocytes 0 % 0-10 Automated blood basophils/100 leukocytes 0 % 0-10 Blood neutrophils automated count (number/volume) 12.9 10*3 1.8-7.8 Blood lymphocytes automated count (number/volume) 0.9 10*3 1.0-4.0 Blood monocytes automated count (number/volume) 0. 5 10*3 0.0-1.0 Automated eosinophil count 0.0 10*3/uL 0 .0-0.3 Automated blood basophil count (count/volume) 0.0 10*3/uL 0.0-0.1 Comprehensive metabolic panel - 07/26/17 06:13 Serum or plasma sodium measurement (moles/volume) 132 mmol/L 135-145 Serum or plasma potassium measurement (moles/volume) 4.3 mmol/L 3.6-5.0 Serum or plasma chloride measurement (moles/volume) 98 mmol/L 98-107 Carbon dioxide 22 mmol/L 21-32 Serum or plasma anion gap determination (moles/volume) 12 mmol/L 5-14 Serum or plasma urea nitrogen measurement (mass/volume ) 14 mg/dL 7-18 Serum or plasma creatinine measurement (mass/volume) 1.00 mg/dL 0.60-1.30 Serum or plasma urea nitrogen/creatinine mass ratio 14 NRG Serum or plasma creatinine measurement w ith calculation of estimated glomerular filtration rate > NRG Serum or plasma glucose measurement (mass/volume) 203 mg/dL 70-105 Serum or plasma calcium measurement (mass/volume) 9.7 mg/dL 8.5-10.1 Serum or plasma total bilirubin measurement (mass/volu me) 0.4 mg/dL 0.1-1.0 Serum or plasma alkaline phosphatase kelsey surement (enzymatic activity/volume) 94 U/L 40-136 Serum or plasma aspartate aminotransfera se measurement (enzymatic activity/volume) 30 U/L 5-34 Serum or plasma alanine aminotransferase measurement (enzymatic activity/volume) 31 U/L 0-55 Serum or plasma protein measurement (mass/volume) 7.3 g/dL 6.4-8.2 Serum or plasma albumin measurement (mass/volume) 4.0 g/dL 3.2-4.5 Serum or plasma lithium measurement (mol es/volume) - 07/26/17 06:13 BNP level 86.1 pg/mL <100.0 Complete blood count (CBC) with automate d white blood cell (WBC) differential - 07/31/17 20:45 Blood leukocytes automated count (number/volume) 18.8 10*3/uL 4.3-11.0 Blood erythrocytes automated count (number/volume) 5.05 10*6/uL 4.35-5.85 Venous blood hemoglobin measurement (mass/volume) 16.1 g/dL 13.3-17.7 Blood hematocrit (volume fraction) 46 % 40-54 Automated erythrocyte mean corpuscular volume 91 [ foz_us] 80-99 Automated erythrocyte mean corpuscular h emoglobin (mass per erythrocyte) 32 pg 25-34 Automated erythrocyte mean corpuscular h emoglobin concentration measurement (mass/volume) 35 g/dL 32-36 Automated erythrocyte distribution width ratio 13. 8 % 10.0- 14.5 Automated blood platelet count (count/volume) 326 10*3/uL 130-400 Automated blood platelet mean volume measurement 8.6 [foz_us] 7.4-10.4 Automated blood neutrophils/100 leukocytes 90 % 42-75 Automated blood lymphocytes/100 leukocytes 7 % 12-44 Blood monocytes/100 leukocytes 3 % 0-12 Automated blood eosinophils/100 leukocytes 0 % 0-10 Automated blood basophils/100 leukocytes 0 % 0-10 Blood neutrophils automated count (number/volume) 16.9 10*3 1.8-7.8 Blood lymphocytes automated count (number/volume) 1.3 10*3 1.0-4.0 Blood monocytes automated count (number/volume) 0. 6 10*3 0.0-1.0 Automated eosinophil count 0.1 10*3/uL 0 .0-0.3 Automated blood basophil count (count/volume) 0.0 10*3/uL 0.0-0.1 Blood manual differential performed dete ction - 07/31/17 20:45 Blood monocytes/100 leukocytes 3 % NRG Manual blood segmented neutrophils/100 leukocytes 89 % NRG Blood band neutrophils/100 leukocytes 0 % NRG Manual blood lymphocytes/100 leukocytes 6 % NRG Manual eosinophils/100 leukocytes in nose 0 % NRG Manual blood basophils/100 leukocytes 0 % NRG Blood erythrocyte morphology finding identification NORMAL NRG Manual blood metamyelocytes/100 leukocytes 2 % NRG Comprehensive metabolic panel - 07/31/17 20:45 Serum or plasma sodium measurement (moles/volume) 131 mmol/L 135-145 Serum or plasma potassium measurement (moles/volume) 4.7 mmol/L 3.6-5.0 Serum or plasma chloride measurement (moles/volume) 101 mmol/L 98-107 Carbon dioxide 19 mmol/L 21-32 Serum or plasma anion gap determination (moles/volume) 11 mmol/L 5-14 Serum or plasma urea nitrogen measurement (mass/volume ) 16 mg/dL 7-18 Serum or plasma creatinine measurement (mass/volume) 0.94 mg/dL 0.60-1.30 Serum or plasma urea nitrogen/creatinine mass ratio 17 NRG Serum or plasma creatinine measurement w ith calculation of estimated glomerular filtration rate > NRG Serum or plasma glucose measurement (mass/volume) 146 mg/dL 70-105 Serum or plasma calcium measurement (mass/volume) 9.3 mg/dL 8.5-10.1 Serum or plasma total bilirubin measurement (mass/volu me) 0.8 mg/dL 0.1-1.0 Serum or plasma alkaline phosphatase kelsey surement (enzymatic activity/volume) 95 U/L 40-136 Serum or plasma aspartate aminotransfera se measurement (enzymatic activity/volume) 32 U/L 5-34 Serum or plasma alanine aminotransferase measurement (enzymatic activity/volume) 58 U/L 0-55 Serum or plasma protein measurement (mass/volume) 7.1 g/dL 6.4-8.2 Serum or plasma albumin measurement (mass/volume) 4.0 g/dL 3.2-4.5 Serum or plasma C reactive protein measu rement (mass/volume) - 07/31/17 20:45 Serum or plasma C reactive protein measurement (mass/v olume) 0.40 mg/dL 0.00-0.50 Influenza virus A and B antigen detectio n - 07/31/17 21:16 FLU RESULT NEGATIVE FOR INFLUENZA A AND B ANTIGENS BY IA NRG Bacterial blood culture - 07/31/17 21:54 Bacterial blood culture NG NRG Bacterial blood culture - 07/31/17 22:38 Bacterial blood culture NG NR Complete blood count (CBC) with automate d white blood cell (WBC) differential - 08/01/17 03:13 Blood leukocytes automated count (number/volume) 20.1 10*3/uL 4.3-11.0 Blood erythrocytes automated count (number/volume) 4.82 10*6/uL 4.35-5.85 Venous blood hemoglobin measurement (mass/volume) 15.7 g/dL 13.3-17.7 Blood hematocrit (volume fraction) 44 % 40-54 Automated erythrocyte mean corpuscular volume 91 [ foz_us] 80-99 Automated erythrocyte mean corpuscular h emoglobin (mass per erythrocyte) 33 pg 25-34 Automated erythrocyte mean corpuscular h emoglobin concentration measurement (mass/volume) 36 g/dL 32-36 Automated erythrocyte distribution width ratio 13. 7 % 10.0- 14.5 Automated blood platelet count (count/volume) 315 10*3/uL 130-400 Automated blood platelet mean volume measurement 8.8 [foz_us] 7.4-10.4 Automated blood neutrophils/100 leukocytes 96 % 42-75 Automated blood lymphocytes/100 leukocytes 3 % 12-44 Blood monocytes/100 leukocytes 2 % 0-12 Automated blood eosinophils/100 leukocytes 0 % 0-10 Automated blood basophils/100 leukocytes 0 % 0-10 Blood neutrophils automated count (number/volume) 19.2 10*3 1.8-7.8 Blood lymphocytes automated count (number/volume) 0.6 10*3 1.0-4.0 Blood monocytes automated count (number/volume) 0. 3 10*3 0.0-1.0 Automated eosinophil count 0.0 10*3/uL 0 .0-0.3 Automated blood basophil count (count/volume) 0.0 10*3/uL 0.0-0.1 Whole blood basic metabolic panel - 07/14 02/28 03:13 Serum or plasma sodium measurement (moles/volume) 132 mmol/L 135-145 Serum or plasma potassium measurement (moles/volume) 4.2 mmol/L 3.6-5.0 Serum or plasma chloride measurement (moles/volume) 101 mmol/L 98-107 Carbon dioxide 18 mmol/L 21-32 Serum or plasma anion gap determination (moles/volume) 13 mmol/L 5-14 Serum or plasma urea nitrogen measurement (mass/volume ) 15 mg/dL 7-18 Serum or plasma creatinine measurement (mass/volume) 0.86 mg/dL 0.60-1.30 Serum or plasma urea nitrogen/creatinine mass ratio 17 NRG Serum or plasma creatinine measurement w ith calculation of estimated glomerular filtration rate > NRG Serum or plasma glucose measurement (mass/volume) 185 mg/dL 70-105 Serum or plasma calcium measurement (mass/volume) 9.1 mg/dL 8.5-10.1 Methicillin resistant Staphylococcus aur eus (MRSA) screening culture - 06/25/19 14:10 Methicillin resistant Staphylococcus aureus (MRSA) scr eening culture NEG NRG Complete blood count (CBC) with automate d white blood cell (WBC) differential - 07/02/19 06:45 Blood leukocytes automated count (number/volume) 11.3 10*3/uL 4.3-11.0 Blood erythrocytes automated count (number/volume) 4.62 10*6/uL 4.35-5.85 Venous blood hemoglobin measurement (mass/volume) 15.3 g/dL 13.3-17.7 Blood hematocrit (volume fraction) 45 % 40-54 Automated erythrocyte mean corpuscular volume 97 [ foz_us] 80-99 Automated erythrocyte mean corpuscular h emoglobin (mass per erythrocyte) 33 pg 25-34 Automated erythrocyte mean corpuscular h emoglobin concentration measurement (mass/volume) 34 g/dL 32-36 Automated erythrocyte distribution width ratio 13. 4 % 10.0- 14.5 Automated blood platelet count (count/volume) 335 10*3/uL 130-400 Automated blood platelet mean volume measurement 9.3 [foz_us] 7.4-10.4 Automated blood neutrophils/100 leukocytes 70 % 42-75 Automated blood lymphocytes/100 leukocytes 19 % 12-44 Blood monocytes/100 leukocytes 9 % 0-12 Automated blood eosinophils/100 leukocytes 2 % 0-10 Automated blood basophils/100 leukocytes 0 % 0-10 Blood neutrophils automated count (number/volume) 7.9 10*3 1.8-7.8 Blood lymphocytes automated count (number/volume) 2.2 10*3 1.0-4.0 Blood monocytes automated count (number/volume) 1. 0 10*3 0.0-1.0 Automated eosinophil count 0.2 10*3/uL 0 .0-0.3 Automated blood basophil count (count/volume) 0.0 10*3/uL 0.0-0.1 Blood type T Indirect antibody screen [facility] - 07/02/19 06:45 WRISTBAND NUMBER [id number] NRG ABO+Rh group OP NRG Blood group antibody screen NEGATIVE NR G Automated blood complete blood count (he mogram) panel - 07/03/19 05:16 Blood leukocytes automated count (number/volume) 17.5 10*3/uL 4.3-11.0 Blood erythrocytes automated count (number/volume) 4.05 10*6/uL 4.35-5.85 Venous blood hemoglobin measurement (mass/volume) 13.2 g/dL 13.3-17.7 Blood hematocrit (volume fraction) 39 % 40-54 Automated erythrocyte mean corpuscular volume 97 [ foz_us] 80-99 Automated erythrocyte mean corpuscular h emoglobin (mass per erythrocyte) 33 pg 25-34 Automated erythrocyte mean corpuscular h emoglobin concentration measurement (mass/volume) 34 g/dL 32-36 Automated erythrocyte distribution width ratio 13. 4 % 10.0- 14.5 Automated blood platelet count (count/volume) 337 10*3/uL 130-400 Automated blood platelet mean volume measurement 9.4 [foz_us] 7.4-10.4 Comprehensive metabolic panel - 07/03/19 05:16 Serum or plasma sodium measurement (moles/volume) 132 mmol/L 135-145 Serum or plasma potassium measurement (moles/volume) 4.9 mmol/L 3.6-5.0 Serum or plasma chloride measurement (moles/volume) 101 mmol/L 98-107 Carbon dioxide 19 mmol/L 21-32 Serum or plasma anion gap determination (moles/volume) 12 mmol/L 5-14 Serum or plasma urea nitrogen measurement (mass/volume ) 11 mg/dL 7-18 Serum or plasma creatinine measurement (mass/volume) 1.03 mg/dL 0.60-1.30 Serum or plasma urea nitrogen/creatinine mass ratio 11 NRG Serum or plasma creatinine measurement w ith calculation of estimated glomerular filtration rate > NRG Serum or plasma glucose measurement (mass/volume) 187 mg/dL 70-105 Serum or plasma calcium measurement (mass/volume) 8.9 mg/dL 8.5-10.1 Serum or plasma total bilirubin measurement (mass/volu me) 0.5 mg/dL 0.1-1.0 Serum or plasma alkaline phosphatase kelsey surement (enzymatic activity/volume) 82 U/L 40-136 Serum or plasma aspartate aminotransfera se measurement (enzymatic activity/volume) 39 U/L 5-34 Serum or plasma alanine aminotransferase measurement (enzymatic activity/volume) 48 U/L 0-55 Serum or plasma protein measurement (mass/volume) 7.0 g/dL 6.4-8.2 Serum or plasma albumin measurement (mass/volume) 4.1 g/dL 3.2-4.5 CALCIUM CORRECTED 8.8 mg/dL 8.5-10.1 Complete blood count (CBC) with automate d white blood cell (WBC) differential - 07/05/19 05:47 Blood leukocytes automated count (number/volume) 14.6 10*3/uL 4.3-11.0 Blood erythrocytes automated count (number/volume) 3.69 10*6/uL 4.35-5.85 Venous blood hemoglobin measurement (mass/volume) 12.1 g/dL 13.3-17.7 Blood hematocrit (volume fraction) 35 % 40-54 Automated erythrocyte mean corpuscular volume 95 [ foz_us] 80-99 Automated erythrocyte mean corpuscular h emoglobin (mass per erythrocyte) 33 pg 25-34 Automated erythrocyte mean corpuscular h emoglobin concentration measurement (mass/volume) 35 g/dL 32-36 Automated erythrocyte distribution width ratio 13. 4 % 10.0- 14.5 Automated blood platelet count (count/volume) 306 10*3/uL 130-400 Automated blood platelet mean volume measurement 9.2 [foz_us] 7.4-10.4 Automated blood neutrophils/100 leukocytes 78 % 42-75 Automated blood lymphocytes/100 leukocytes 9 % 12-44 Blood monocytes/100 leukocytes 13 % 0-12 Automated blood eosinophils/100 leukocytes 0 % 0-10 Automated blood basophils/100 leukocytes 0 % 0-10 Blood neutrophils automated count (number/volume) 11.4 10*3 1.8-7.8 Blood lymphocytes automated count (number/volume) 1.3 10*3 1.0-4.0 Blood monocytes automated count (number/volume) 1. 9 10*3 0.0-1.0 Automated eosinophil count 0.1 10*3/uL 0 .0-0.3 Automated blood basophil count (count/volume) 0.0 10*3/uL 0.0-0.1 Influenza virus A and B antigen detectio n - 07/05/19 05:47 FLU RESULT NEGATIVE FOR INFLUENZA A AND B ANTIGENS BY IA NRG Manual absolute plasma cell count - 06/14 08/30 05:47 Blood monocytes/100 leukocytes 9 % NRG Manual blood segmented neutrophils/100 leukocytes 81 % NRG Blood band neutrophils/100 leukocytes 1 % NRG Manual blood lymphocytes/100 leukocytes 7 % NRG Manual eosinophils/100 leukocytes in nose 0 % NRG Manual blood basophils/100 leukocytes 0 % NRG Blood lymphocytes variant/100 leukocytes 2 % NRG Blood erythrocyte morphology finding identification NORMAL NRG PT panel in platelet poor plasma by coag ulation assay - 07/05/19 05:47 Prothrombin time (PT) in platelet poor plasma by coagu lation assay 14.0 s 12.2-14.7 INR in platelet poor plasma or blood by coagulation as say 1.0 0.8-1.4 Activated partial thromboplastin time (a PTT) in platelet poor plasma bycoagulation assay - 07/05/19 05:47 Activated partial thromboplastin time (a PTT) in platelet poor plasma bycoagulation assay 51 s 24-35 Blood lactic acid measurement (moles/vol ume) - 07/05/19 05:47 Blood lactic acid measurement (moles/volume) 2.47 mmol/L 0.50-2.00 Comprehensive metabolic panel - 07/05/19 05:47 Serum or plasma sodium measurement (moles/volume) 131 mmol/L 135-145 Serum or plasma potassium measurement (moles/volume) 3.7 mmol/L 3.6-5.0 Serum or plasma chloride measurement (moles/volume) 97 mmol/L 98-107 Carbon dioxide 22 mmol/L 21-32 Serum or plasma anion gap determination (moles/volume) 12 mmol/L 5-14 Serum or plasma urea nitrogen measurement (mass/volume ) 13 mg/dL 7-18 Serum or plasma creatinine measurement (mass/volume) 0.94 mg/dL 0.60-1.30 Serum or plasma urea nitrogen/creatinine mass ratio 14 NRG Serum or plasma creatinine measurement w ith calculation of estimated glomerular filtration rate > NRG Serum or plasma glucose measurement (mass/volume) 151 mg/dL 70-105 Serum or plasma calcium measurement (mass/volume) 9.2 mg/dL 8.5-10.1 Serum or plasma total bilirubin measurement (mass/volu me) 0.8 mg/dL 0.1-1.0 Serum or plasma alkaline phosphatase kelsey surement (enzymatic activity/volume) 66 U/L 40-136 Serum or plasma aspartate aminotransfera se measurement (enzymatic activity/volume) 30 U/L 5-34 Serum or plasma alanine aminotransferase measurement (enzymatic activity/volume) 27 U/L 0-55 Serum or plasma protein measurement (mass/volume) 6.7 g/dL 6.4-8.2 Serum or plasma albumin measurement (mass/volume) 3.8 g/dL 3.2-4.5 CALCIUM CORRECTED 9.4 mg/dL 8.5-10.1 Bacterial blood culture - 07/05/19 05:47 Bacterial blood culture NG NRG Arterial blood gas measurement - 0 06:01 Blood pCO2 32 mm[Hg] 35-45 Blood pO2 127 mm[Hg] 79-93 Arterial blood bicarbonate measurement (moles/volume) 23 mmol/L 23-27 Arterial blood base excess by calculation -0.1 mmo l/L -2.5-2.5 Arterial blood oxygen saturation measurement 99 % 94-100 * Inhaled oxygen flow rate UNKNOWN NRG Arterial blood pH measurement with patient temperature correction 7.47 7.37-7.43 Arterial blood carbon dioxide, total measurement (mole s/volume) 23.7 mmol/L 21.0-31.0 Body site L WRIST NRG Assessment of wrist artery patency prior to arterial p uncture YES-POS NRG Setting of ventilation mode NO NR G Measurement of body temperature 38.6 NRG Bacterial blood culture - 07/05/19 06:12 Bacterial blood culture NG NRG Complete urinalysis with reflex to cultu re - 07/05/19 07:18 Urine color determination YELLOW NRG Urine clarity determination CLEAR NR G Urine pH measurement by test strip 6.5 5-9 Specific gravity of urine by test strip 1.020 1.016-1.022 Urine protein assay by test strip, semi-quantitative 1+ NEGATIVE Urine glucose detection by automated test strip NE GATIVE NEGATIVE Erythrocytes detection in urine sediment by light micr oscopy 1+ NEGATIVE Urine ketones detection by automated test strip NE GATIVE NEGATIVE Urine nitrite detection by test strip NEGATIVE NEGATIVE Urine total bilirubin detection by test strip NEGA TIVE NEGATIVE Urine urobilinogen measurement by automated test strip (mass/volume) 0.2 mg/dL < = 1.0 Urine leukocyte esterase detection by dipstick NEG ATIVE NEGATIVE Automated urine sediment erythrocyte cou nt by microscopy (number/high power field) [HPF] NRG Automated urine sediment leukocyte count by microscopy (number/high power field) NONE NRG Bacteria detection in urine sediment by light microsco py NEGATIVE NRG Squamous epithelial cells detection in u rine sediment by light microscopy NONE NRG Crystals detection in urine sediment by light microsco py NONE NRG Casts detection in urine sediment by light microscopy NONE NRG Mucus detection in urine sediment by light microscopy NEGATIVE NRG Complete urinalysis with reflex to culture NO NRG Other elements identification in urine sediment by lig ht microscopy RARE SPERM NRG Bacterial urine culture - 07/05/19 07:18 Bacterial urine culture NG NRG Serum or plasma lactate measurement (mol es/volume) - 07/05/19 07:58 Serum or plasma lactate measurement (moles/volume) 1.88 mmol/L 0.50-2.00 Blood lactic acid measurement (moles/vol ume) - 07/05/19 13:14 Blood lactic acid measurement (moles/volume) 3.64 mmol/L 0.50-2.00 Whole blood basic metabolic panel - 06/14 08/30 14:21 Serum or plasma sodium measurement (moles/volume) 131 mmol/L 135-145 Serum or plasma potassium measurement (moles/volume) 3.3 mmol/L 3.6-5.0 Serum or plasma chloride measurement (moles/volume) 100 mmol/L 98-107 Carbon dioxide 21 mmol/L 21-32 Serum or plasma anion gap determination (moles/volume) 10 mmol/L 5-14 Serum or plasma urea nitrogen measurement (mass/volume ) 13 mg/dL 7-18 Serum or plasma creatinine measurement (mass/volume) 0.85 mg/dL 0.60-1.30 Serum or plasma urea nitrogen/creatinine mass ratio 15 NRG Serum or plasma creatinine measurement w ith calculation of estimated glomerular filtration rate > NRG Serum or plasma glucose measurement (mass/volume) 143 mg/dL 70-105 Serum or plasma calcium measurement (mass/volume) 8.4 mg/dL 8.5-10.1 Serum or plasma lactate measurement (mol es/volume) - 07/05/19 15:14 Serum or plasma lactate measurement (moles/volume) 1.20 mmol/L 0.50-2.00 Complete blood count (CBC) with automate d white blood cell (WBC) differential - 07/06/19 04:22 Blood leukocytes automated count (number/volume) 10.7 10*3/uL 4.3-11.0 Blood erythrocytes automated count (number/volume) 3.00 10*6/uL 4.35-5.85 Venous blood hemoglobin measurement (mass/volume) 10.0 g/dL 13.3-17.7 Blood hematocrit (volume fraction) 29 % 40-54 Automated erythrocyte mean corpuscular volume 96 [ foz_us] 80-99 Automated erythrocyte mean corpuscular h emoglobin (mass per erythrocyte) 33 pg 25-34 Automated erythrocyte mean corpuscular h emoglobin concentration measurement (mass/volume) 35 g/dL 32-36 Automated erythrocyte distribution width ratio 13. 0 % 10.0- 14.5 Automated blood platelet count (count/volume) 256 10*3/uL 130-400 Automated blood platelet mean volume measurement 9.2 [foz_us] 7.4-10.4 Automated blood neutrophils/100 leukocytes 76 % 42-75 Automated blood lymphocytes/100 leukocytes 11 % 12-44 Blood monocytes/100 leukocytes 12 % 0-12 Automated blood eosinophils/100 leukocytes 1 % 0-10 Automated blood basophils/100 leukocytes 0 % 0-10 Blood neutrophils automated count (number/volume) 8.1 10*3 1.8-7.8 Blood lymphocytes automated count (number/volume) 1.2 10*3 1.0-4.0 Blood monocytes automated count (number/volume) 1. 3 10*3 0.0-1.0 Automated eosinophil count 0.1 10*3/uL 0 .0-0.3 Automated blood basophil count (count/volume) 0.0 10*3/uL 0.0-0.1 Comprehensive metabolic panel - 07/06/19 04:22 Serum or plasma sodium measurement (moles/volume) 132 mmol/L 135-145 Serum or plasma potassium measurement (moles/volume) 3.3 mmol/L 3.6-5.0 Serum or plasma chloride measurement (moles/volume) 105 mmol/L 98-107 Carbon dioxide 19 mmol/L 21-32 Serum or plasma anion gap determination (moles/volume) 8 mmol/L 5-14 Serum or plasma urea nitrogen measurement (mass/volume ) 9 mg/dL 7-18 Serum or plasma creatinine measurement (mass/volume) 0.71 mg/dL 0.60-1.30 Serum or plasma urea nitrogen/creatinine mass ratio 13 NRG Serum or plasma creatinine measurement w ith calculation of estimated glomerular filtration rate > NRG Serum or plasma glucose measurement (mass/volume) 131 mg/dL 70-105 Serum or plasma calcium measurement (mass/volume) 7.7 mg/dL 8.5-10.1 Serum or plasma total bilirubin measurement (mass/volu me) 0.8 mg/dL 0.1-1.0 Serum or plasma alkaline phosphatase kelsey surement (enzymatic activity/volume) 55 U/L 40-136 Serum or plasma aspartate aminotransfera se measurement (enzymatic activity/volume) 23 U/L 5-34 Serum or plasma alanine aminotransferase measurement (enzymatic activity/volume) 22 U/L 0-55 Serum or plasma protein measurement (mass/volume) 5.5 g/dL 6.4-8.2 Serum or plasma albumin measurement (mass/volume) 3.0 g/dL 3.2-4.5 CALCIUM CORRECTED 8.5 mg/dL 8.5-10.1 Serum or plasma phosphate measurement (m ass/volume) - 07/06/19 04:22 Serum or plasma phosphate measurement (mass/volume) 1.8 mg/dL 2.3-4.7 Magnesium - 07/06/19 04:22 Magnesium 2.1 mg/dL 1.6-2.4 Vancomycin trough - 07/06/19 11:00 Vancomycin trough 14.6 ug/mL 10.0-20.0 Complete blood count (CBC) with automate d white blood cell (WBC) differential - 07/07/19 06:10 Blood leukocytes automated count (number/volume) 13.0 10*3/uL 4.3-11.0 Blood erythrocytes automated count (number/volume) 3.22 10*6/uL 4.35-5.85 Venous blood hemoglobin measurement (mass/volume) 10.5 g/dL 13.3-17.7 Blood hematocrit (volume fraction) 31 % 40-54 Automated erythrocyte mean corpuscular volume 96 [ foz_us] 80-99 Automated erythrocyte mean corpuscular h emoglobin (mass per erythrocyte) 33 pg 25-34 Automated erythrocyte mean corpuscular h emoglobin concentration measurement (mass/volume) 34 g/dL 32-36 Automated erythrocyte distribution width ratio 13. 6 % 10.0- 14.5 Automated blood platelet count (count/volume) 311 10*3/uL 130-400 Automated blood platelet mean volume measurement 9.2 [foz_us] 7.4-10.4 Automated blood neutrophils/100 leukocytes 68 % 42-75 Automated blood lymphocytes/100 leukocytes 16 % 12-44 Blood monocytes/100 leukocytes 13 % 0-12 Automated blood eosinophils/100 leukocytes 3 % 0-10 Automated blood basophils/100 leukocytes 0 % 0-10 Blood neutrophils automated count (number/volume) 8.9 10*3 1.8-7.8 Blood lymphocytes automated count (number/volume) 2.0 10*3 1.0-4.0 Blood monocytes automated count (number/volume) 1. 7 10*3 0.0-1.0 Automated eosinophil count 0.4 10*3/uL 0 .0-0.3 Automated blood basophil count (count/volume) 0.0 10*3/uL 0.0-0.1 Whole blood basic metabolic panel - 06/14 10/30 06:10 Serum or plasma sodium measurement (moles/volume) 134 mmol/L 135-145 Serum or plasma potassium measurement (moles/volume) 3.8 mmol/L 3.6-5.0 Serum or plasma chloride measurement (moles/volume) 104 mmol/L 98-107 Carbon dioxide 20 mmol/L 21-32 Serum or plasma anion gap determination (moles/volume) 10 mmol/L 5-14 Serum or plasma urea nitrogen measurement (mass/volume ) 8 mg/dL 7-18 Serum or plasma creatinine measurement (mass/volume) 0.82 mg/dL 0.60-1.30 Serum or plasma urea nitrogen/creatinine mass ratio 10 NRG Serum or plasma creatinine measurement w ith calculation of estimated glomerular filtration rate > NRG Serum or plasma glucose measurement (mass/volume) 120 mg/dL 70-105 Serum or plasma calcium measurement (mass/volume) 8.1 mg/dL 8.5-10.1 Serum or plasma phosphate measurement (m ass/volume) - 07/07/19 06:10 Serum or plasma phosphate measurement (mass/volume) 2.3 mg/dL 2.3-4.7 Magnesium - 07/07/19 06:10 Magnesium 2.2 mg/dL 1.6-2.4 Complete urinalysis with reflex to cultu re - 07/07/19 09:30 Urine color determination YELLOW NRG Urine clarity determination CLEAR NR G Urine pH measurement by test strip 5.5 5-9 Specific gravity of urine by test strip >= 1.016-1.022 Urine protein assay by test strip, semi-quantitative TRACE NEGATIVE Urine glucose detection by automated test strip TR MERVIN NEGATIVE Erythrocytes detection in urine sediment by light micr oscopy NEGATIVE NEGATIVE Urine ketones detection by automated test strip NE GATIVE NEGATIVE Urine nitrite detection by test strip NEGATIVE NEGATIVE Urine total bilirubin detection by test strip NEGA TIVE NEGATIVE Urine urobilinogen measurement by automated test strip (mass/volume) 0.2 mg/dL < = 1.0 Urine leukocyte esterase detection by dipstick NEG ATIVE NEGATIVE Automated urine sediment erythrocyte cou nt by microscopy (number/high power field) NONE NRG Automated urine sediment leukocyte count by microscopy (number/high power field) [HPF] NRG Bacteria detection in urine sediment by light microsco py NEGATIVE NRG Squamous epithelial cells detection in u rine sediment by light microscopy 0-2 NRG Crystals detection in urine sediment by light microsco py NONE NRG Casts detection in urine sediment by light microscopy NONE NRG Mucus detection in urine sediment by light microscopy SMALL NRG Complete urinalysis with reflex to culture NO NRG Complete blood count (CBC) with automate d white blood cell (WBC) differential - 07/08/19 05:10 Blood leukocytes automated count (number/volume) 12.4 10*3/uL 4.3-11.0 Blood erythrocytes automated count (number/volume) 3.01 10*6/uL 4.35-5.85 Venous blood hemoglobin measurement (mass/volume) 10.0 g/dL 13.3-17.7 Blood hematocrit (volume fraction) 29 % 40-54 Automated erythrocyte mean corpuscular volume 97 [ foz_us] 80-99 Automated erythrocyte mean corpuscular h emoglobin (mass per erythrocyte) 33 pg 25-34 Automated erythrocyte mean corpuscular h emoglobin concentration measurement (mass/volume) 34 g/dL 32-36 Automated erythrocyte distribution width ratio 13. 3 % 10.0- 14.5 Automated blood platelet count (count/volume) 323 10*3/uL 130-400 Automated blood platelet mean volume measurement 9.2 [foz_us] 7.4-10.4 Automated blood neutrophils/100 leukocytes 72 % 42-75 Automated blood lymphocytes/100 leukocytes 12 % 12-44 Blood monocytes/100 leukocytes 11 % 0-12 Automated blood eosinophils/100 leukocytes 5 % 0-10 Automated blood basophils/100 leukocytes 0 % 0-10 Blood neutrophils automated count (number/volume) 8.9 10*3 1.8-7.8 Blood lymphocytes automated count (number/volume) 1.4 10*3 1.0-4.0 Blood monocytes automated count (number/volume) 1. 3 10*3 0.0-1.0 Automated eosinophil count 0.6 10*3/uL 0 .0-0.3 Automated blood basophil count (count/volume) 0.0 10*3/uL 0.0-0.1 Whole blood basic metabolic panel - 06/14 11/30 05:10 Serum or plasma sodium measurement (moles/volume) 134 mmol/L 135-145 Serum or plasma potassium measurement (moles/volume) 3.5 mmol/L 3.6-5.0 Serum or plasma chloride measurement (moles/volume) 105 mmol/L 98-107 Carbon dioxide 19 mmol/L 21-32 Serum or plasma anion gap determination (moles/volume) 10 mmol/L 5-14 Serum or plasma urea nitrogen measurement (mass/volume ) 7 mg/dL 7-18 Serum or plasma creatinine measurement (mass/volume) 0.80 mg/dL 0.60-1.30 Serum or plasma urea nitrogen/creatinine mass ratio 9 NRG Serum or plasma creatinine measurement w ith calculation of estimated glomerular filtration rate > NRG Serum or plasma glucose measurement (mass/volume) 174 mg/dL 70-105 Serum or plasma calcium measurement (mass/volume) 8.2 mg/dL 8.5-10.1 Serum or plasma phosphate measurement (m ass/volume) - 07/08/19 05:10 Serum or plasma phosphate measurement (mass/volume) 2.1 mg/dL 2.3-4.7 Magnesium - 07/08/19 05:10 Magnesium 2.1 mg/dL 1.6-2.4 Complete blood count (CBC) with automate d white blood cell (WBC) differential - 07/09/19 06:15 Blood leukocytes automated count (number/volume) 11.2 10*3/uL 4.3-11.0 Blood erythrocytes automated count (number/volume) 3.01 10*6/uL 4.35-5.85 Venous blood hemoglobin measurement (mass/volume) 9.9 g/dL 13.3-17.7 Blood hematocrit (volume fraction) 29 % 40-54 Automated erythrocyte mean corpuscular volume 96 [ foz_us] 80-99 Automated erythrocyte mean corpuscular h emoglobin (mass per erythrocyte) 33 pg 25-34 Automated erythrocyte mean corpuscular h emoglobin concentration measurement (mass/volume) 34 g/dL 32-36 Automated erythrocyte distribution width ratio 13. 7 % 10.0- 14.5 Automated blood platelet count (count/volume) 365 10*3/uL 130-400 Automated blood platelet mean volume measurement 9.0 [foz_us] 7.4-10.4 Automated blood neutrophils/100 leukocytes 71 % 42-75 Automated blood lymphocytes/100 leukocytes 11 % 12-44 Blood monocytes/100 leukocytes 14 % 0-12 Automated blood eosinophils/100 leukocytes 5 % 0-10 Automated blood basophils/100 leukocytes 0 % 0-10 Blood neutrophils automated count (number/volume) 7.9 10*3 1.8-7.8 Blood lymphocytes automated count (number/volume) 1.2 10*3 1.0-4.0 Blood monocytes automated count (number/volume) 1. 5 10*3 0.0-1.0 Automated eosinophil count 0.5 10*3/uL 0 .0-0.3 Automated blood basophil count (count/volume) 0.0 10*3/uL 0.0-0.1 Comprehensive metabolic panel - 07/09/19 06:15 Serum or plasma sodium measurement (moles/volume) 136 mmol/L 135-145 Serum or plasma potassium measurement (moles/volume) 3.4 mmol/L 3.6-5.0 Serum or plasma chloride measurement (moles/volume) 106 mmol/L 98-107 Carbon dioxide 22 mmol/L 21-32 Serum or plasma anion gap determination (moles/volume) 8 mmol/L 5-14 Serum or plasma urea nitrogen measurement (mass/volume ) 6 mg/dL 7-18 Serum or plasma creatinine measurement (mass/volume) 0.75 mg/dL 0.60-1.30 Serum or plasma urea nitrogen/creatinine mass ratio 8 NRG Serum or plasma creatinine measurement w ith calculation of estimated glomerular filtration rate > NRG Serum or plasma glucose measurement (mass/volume) 122 mg/dL 70-105 Serum or plasma calcium measurement (mass/volume) 8.5 mg/dL 8.5-10.1 Serum or plasma total bilirubin measurement (mass/volu me) 0.6 mg/dL 0.1-1.0 Serum or plasma alkaline phosphatase kelsey surement (enzymatic activity/volume) 62 U/L 40-136 Serum or plasma aspartate aminotransfera se measurement (enzymatic activity/volume) 28 U/L 5-34 Serum or plasma alanine aminotransferase measurement (enzymatic activity/volume) 35 U/L 0-55 Serum or plasma protein measurement (mass/volume) 5.7 g/dL 6.4-8.2 Serum or plasma albumin measurement (mass/volume) 3.0 g/dL 3.2-4.5 CALCIUM CORRECTED 9.3 mg/dL 8.5-10.1 Complete blood count (CBC) with automate d white blood cell (WBC) differential - 07/16/19 06:50 Blood leukocytes automated count (number/volume) 8.8 10*3/uL 4.3-11.0 Blood erythrocytes automated count (number/volume) 3.15 10*6/uL 4.35-5.85 Venous blood hemoglobin measurement (mass/volume) 10.0 g/dL 13.3-17.7 Blood hematocrit (volume fraction) 31 % 40-54 Automated erythrocyte mean corpuscular volume 98 [ foz_us] 80-99 Automated erythrocyte mean corpuscular h emoglobin (mass per erythrocyte) 32 pg 25-34 Automated erythrocyte mean corpuscular h emoglobin concentration measurement (mass/volume) 33 g/dL 32-36 Automated erythrocyte distribution width ratio 13. 7 % 10.0- 14.5 Automated blood platelet count (count/volume) 490 10*3/uL 130-400 Automated blood platelet mean volume measurement 9.0 [foz_us] 7.4-10.4 Automated blood neutrophils/100 leukocytes 67 % 42-75 Automated blood lymphocytes/100 leukocytes 19 % 12-44 Blood monocytes/100 leukocytes 12 % 0-12 Automated blood eosinophils/100 leukocytes 3 % 0-10 Automated blood basophils/100 leukocytes 0 % 0-10 Blood neutrophils automated count (number/volume) 5.8 10*3 1.8-7.8 Blood lymphocytes automated count (number/volume) 1.6 10*3 1.0-4.0 Blood monocytes automated count (number/volume) 1. 0 10*3 0.0-1.0 Automated eosinophil count 0.2 10*3/uL 0 .0-0.3 Automated blood basophil count (count/volume) 0.0 10*3/uL 0.0-0.1 Comprehensive metabolic panel - 07/16/19 06:50 Serum or plasma sodium measurement (moles/volume) 134 mmol/L 135-145 Serum or plasma potassium measurement (moles/volume) 4.2 mmol/L 3.6-5.0 Serum or plasma chloride measurement (moles/volume) 101 mmol/L 98-107 Carbon dioxide 23 mmol/L 21-32 Serum or plasma anion gap determination (moles/volume) 10 mmol/L 5-14 Serum or plasma urea nitrogen measurement (mass/volume ) 9 mg/dL 7-18 Serum or plasma creatinine measurement (mass/volume) 0.80 mg/dL 0.60-1.30 Serum or plasma urea nitrogen/creatinine mass ratio 11 NRG Serum or plasma creatinine measurement w ith calculation of estimated glomerular filtration rate > NRG Serum or plasma glucose measurement (mass/volume) 113 mg/dL 70-105 Serum or plasma calcium measurement (mass/volume) 9.0 mg/dL 8.5-10.1 Serum or plasma total bilirubin measurement (mass/volu me) 0.5 mg/dL 0.1-1.0 Serum or plasma alkaline phosphatase kelsey surement (enzymatic activity/volume) 121 U/L 40-136 Serum or plasma aspartate aminotransfera se measurement (enzymatic activity/volume) 35 U/L 5-34 Serum or plasma alanine aminotransferase measurement (enzymatic activity/volume) 29 U/L 0-55 Serum or plasma protein measurement (mass/volume) 6.2 g/dL 6.4-8.2 Serum or plasma albumin measurement (mass/volume) 3.3 g/dL 3.2-4.5 CALCIUM CORRECTED 9.6 mg/dL 8.5-10.1 Encounters ACCT No. Visit Date/Time Discharge Status Pt. Type Provider Facility Loc./Unit Complaint [id number] 05/30/2019 13:17:00 05/30/2019 23:59 :00 DIS Outpatient Susana Gonzalez [id number] 05/23/2019 09:58:00 05/23/2019 23:59 :00 DIS Outpatient Susana Gonzalez [id number] 04/24/2019 14:02:00 04/24/2019 23:59: 00 DIS Outpatient Ashley Susana [id number] 03/13/2019 14:38:00 03/13/2019 23:59: 00 DIS Outpatient Ashley Susana [id number] 02/13/2019 14:34:00 02/13/2019 23:59: 00 DIS Outpatient Ashley Susana [id number] 06/21/2017 09:22:00 06/21/2017 23:59: 00 DIS Outpatient ANAHI NAVA [id number] 06/21/2017 08:55:00 06/21/2017 23:59: 00 DIS Outpatient ANAHI NAVA [id number] 07/12/2018 13:46:00 Document Registration [id number] 08/26/2017 14:43:00 Document Registration [id number] 07/15/2017 15:12:00 Document Registration [id number] 07/02/2017 14:49:00 Document Registration [id number] 05/20/2017 13:24:00 Document Registration [id number] 03/03/2017 15:31:00 Document Registration [id number] 01/17/2020 05:44:00 020 13:12:00 DIS Outpatient FABY CR MD [facility] PREOP RECTAL BLEEDING [id number] 07/05/2019 09:30:00 16:20:00 DIS Inpatient AYDE FRANCO DO, [facility] IRF DEBILITY [id number] 07/05/2019 05:32:00 09:43:00 DIS Emergency RUSSELL MORRIS MD [facility] ER WEAKNESS [id number] 07/02/2019 06:21:00 18:05:00 DIS Inpatient THEA SWANSON DO [facility] 4TH SPONDYLISIS [id number] 06/25/2019 13:44:00 23:59:59 CLS Outpatient THEA SWANSON DO [facility] PREOP SPONDYLISIS [id number] 05/21/2019 07:45:00 23:59:59 CLS Outpatient SEBAS NATION [facility] CARD CAD [id number] 05/17/2019 11:26:00 23:59:59 CLS Outpatient SEBAS NATION [facility] CARD CAD [id number] 02/23/2019 00:12:00 23:59:59 CLS Preadmit RAYA DO, CAROLEE V [facility] REHAB LUMBAR PAIN; POOR CHRISTOPHER CE; GAIT TRAINING [id number] 01/29/2019 15:09:00 00:01:00 DIS Outpatient RAYA DO, CAROLEE [facility] REHAB LUMBAR PAIN; POOR CHRISTOPHER CE; GAIT TRAINING [id number] 01/17/2019 07:30:00 23:59:59 CLS Preadmit JOAQUIN NATION [facility] CARD CAD,HTN,DIONNE,CA ROTID ARTERY STENOSIS [id number] 11/20/2018 13:00:00 00:01:00 DIS Outpatient RAYA DO, CAROLEE [facility] REHAB LUMBAR PAIN; POOR CHRISTOPHER CE; GAIT TRAINING [id number] 11/20/2018 16:55:00 019 23:59:59 CLS Preadmit JOAQUIN NATION [facility] CARD CAD [id number] 03/13/2018 14:27:00 018 23:59:59 CLS Outpatient CLAY BROWN [employer]LYST [facility] RAD J30.2 SEASONAL ALLERGIES [id number] 07/31/2017 21:45:00 018 14:00:00 DIS Inpatient AYDE FRANCO DO, V [facility] 4TH POSS PNEUMONIA, COPD EX ACERBATION [id number] 07/25/2017 10:40:00 018 16:07:00 DIS Inpatient SANDRINE JIMENEZ MD [facility] 4TH COPD EXACERBATION [id number] 07/13/2017 14:51:00 018 23:59:59 CLS Outpatient CHRISTIAN GONZALEZ [facility] RAD R06.00, J18.9 [id number] 07/03/2017 22:19:00 018 00:19:00 DIS Emergency IRASEMA BARTON [employer] COMP[employer]ATION ANALYST [facility] ER COUGH, "TAKES BREATHE A WAY" [id number] 04/15/2017 12:56:00 017 23:59:59 CLS Outpatient SEBAS NATION [facility] CARD CAD I25.10, [id number] 09/06/2016 06:43:00 017 10:40:00 DIS Outpatient LUKE MACK DO [facility] SDC LESION RIGHT MANDAEN [id number] 09/02/2016 05:33:00 017 10:13:00 DIS Outpatient LUKE MACK DO [facility] PREOP REMOVAL SKIN LESION RIG HT MANDAEN [id number] 08/17/2016 07:32:00 017 10:30:00 DIS Outpatient LUKE MACK DO [facility] ENDO CHEST PAIN [id number] 08/13/2016 09:00:00 017 09:30:00 DIS Outpatient LUKE MACK DO [facility] PREOP CHEST PAIN [id number] 08/02/2016 06:00:00 017 13:33:00 DIS Outpatient LUKE MACK DO [facility] PREOP CHEST PAIN [id number] 07/15/2016 02:53:00 017 14:30:00 DIS Inpatient AYDE FRANCO DO, V [facility] ICU CHEST PAIN,CAD [id number] 07/05/2016 18:56:00 017 21:17:00 DIS Emergency IRASEMA BARTON [employer] COMP[employer]ATION ANALYST [facility] ER CP [id number] 10/08/2015 06:57:00 016 10:30:00 DIS Outpatient ADRYAN NAVARRO MD [facility] CATH ABNORMAL STRESS, CAD, H LP [id number] 09/17/2015 07:05:00 016 23:59:59 CLS Outpatient ADRYAN NAVARRO MD [facility] CARD CAD,FLORES,HTN MIXED HLP [id number] 08/21/2013 12:55:00 014 23:59:59 CLS Outpatient ADRYAN NAVARRO MD [facility] CARD CAD,HTN,HLP [id number] 08/17/2013 06:18:00 014 11:12:00 DIS Inpatient JULIO CÉSAR HOWELL MD [facility] SURG RIGHT CAROTID STENOSIS [id number] 08/15/2013 08:04:00 014 23:59:59 CLS Outpatient JULIO CÉSAR HOWELL MD [facility] PREOP RIGHT CAROTID STENOSIS [id number] 08/07/2013 06:26:00 014 23:59:59 CLS Outpatient ADRYAN NAVARRO MD [facility] RAD CAD,HTN,HLP [id number] 01/24/2020 07:30:00 P SLY CR MD, FABY Schaefer [facility] ENDO RECTAL BLEEDING [id number] 06/19/2011 15:02:00 Document Registration [id number] 12/25/2010 08:34:00 Document Registration
[2020-01-24] MEDS ORDERED: LACTATED RINGERS 1,000 ML IV ONE (07:17)
[2020-01-24] MEDS ORDERED: PROPOFOL INJECTION 50 ML IV ONE (07:22)
[2020-01-24] MEDS ORDERED: MIDAZOLAM 2 MG/2 ML (VERSED) VIAL ONE (07:23)
[2020-01-24 07:25] VITALS: BP 162/87
[2020-01-24] MEDS ORDERED: LIDOCAINE JELLY 2% 6 ML SYRINGE MM PRN (07:30)
[2020-01-24 08:10] VITALS: BP 129/61
--- NOTE | 2020-01-24 08:13 | Pre-Op Note & Conscious Sedat ---
Pre-Operative Progress Note H&P Reviewed The H&P was reviewed, patient examined and no changes noted. Date H&P Reviewed: Jan 24, 2020 Time H&P Reviewed: 07:15 Conscious Sedation Pre-Proced ASA Score 3 For ASA 3 and 4: Consider anesthesia and medical clearance. Also, for patients with a history of failed moderate sedation consider anesthesia. Airway Lungs Heart ASA score ASA 1: a normal healthy patient ASA 2: a patient with a mild systemic disease (mid diabetes, controlled hypertension, obesity ASA 3: a patient with a severe systemic disease that limits activity (angina, COPD, prior Myocardial infarction) ASA 4: a patient with an incapacitating disease that is a constant threat to life (CHF, renal failure) ASA 5: a moribund patient not expected to survive 24 hrs. (ruptured aneurysm) ASA 6: a declared brain- patient whose organs are being harvested. For emergent operations, add the letter E after the classification Mallampati Classification Grade 2 Sedation Plan Analgesia, Amnesia, Plan communicated to team members, Discussed options with patient/fam, Discussed risks with patient/fam The patient is an appropriate candidate to undergo the planned procedure, sedation, and anesthesia. The patient immediately re-assessed prior to indication. FABY CR MD Jan 24, 2020 08:13
[2020-01-24 08:15] VITALS: BP 129/64
[2020-01-24 08:20] VITALS: BP 134/67
[2020-01-24] MEDS ORDERED: D5 LR IV SOLUTION 1,000 ML IV SCH (08:45)
[2020-01-24 09:00] VITALS: BP 159/76
[2020-01-24] MEDS ORDERED: LACTATED RINGERS 1,000 ML IV SCH (09:15)
[2020-01-24 09:20] VITALS: BP 159/76
--- NOTE | 2020-01-24 10:51 | Anesthesia-General Post-Op ---
MAC Patient Condition Mental Status/LOC: Same as Preop Cardiovascular: Satisfactory Nausea/Vomiting: Absent Respiratory: Satisfactory Pain: Controlled Complications: Absent Post Op Complications Complications None Follow Up Care/Instructions Patient Instructions None needed. Anesthesiology Discharge Order Discharge Order Patient is doing well, no complaints, stable vital signs, no apparent adverse anesthesia problems. No complications reported per nursing. CRISPIN AMBRIZ CRNA Jan 24, 2020 10:51
--- NOTE | 2020-01-24 13:40 | OPERATIVE REPORT ---
DATE OF SERVICE: COLONOSCOPY SUMMARY PRIMARY CARE PROVIDER: Faby Cr MD Procedure was done for evaluation of rectal bleeding and past history of colon polyps. DESCRIPTION OF THE PROCEDURE: The patient was placed in the left lateral decubitus position. Prior to undergoing colonoscopy, digital rectal evaluation was performed. Anal sphincter tone was normal and the perianal reflexes intact. Prostate was anodular, nontender to digital inspection with features compatible with mild BPH. There is evidence for rectal prolapse with no evidence for external hemorrhoids. At least 2 areas of likely grade I internal hemorrhoids were noted. No evidence for ulceration or fissure formation was identified. The rectum was unremarkable. Several small sigmoid diverticulum were present without evidence for diverticulitis. No other sigmoid colonic abnormalities were appreciated. The descending colon, splenic flexure, transverse colon and hepatic flexure were unremarkable. A sessile 6 x 8 mm polyp with uniform mucosal features. No evidence for ulceration was noted in the proximal ascending colon. It was biopsied and ablated and submitted for histopathology with minimal blood loss. The remainder of the ascending colon and cecum was unremarkable. ASSESSMENT: 1. Rectal prolapse is noted without evidence for external hemorrhoids. There are 2 areas of grade I internal hemorrhoids, likely the source of this patient's bleeding without evidence for ulceration. 2. One sessile 6 mm x 8 polyp was biopsied and ablated present in the proximal ascending colon. As long as there are no surprise on histopathology reporting, I will not be recommending future surveillance colonoscopy considering this patient's age and medical comorbidities. Several small sigmoid diverticulum were present without evidence for diverticulitis as well on today's procedure. Job ID: [id number] DocumentID: [id number] Dictated Date: 01/24/2020 08:21:54 Medical Office Clerk Date: 01/24/2020 13:39:48 Dictated By: FABY CR MD
== END 2020-01-24 09:20 | disposition home or self-care (01) ==
LOC: ENDO 07:09
PROVIDERS: ATTEND Internal Medicine
DX: D12.2 Benign neoplasm of ascending colon (principal); K64.0 First degree hemorrhoids; K62.3 Rectal prolapse; K57.30 Diverticulosis of large intestine without perforation or abscess without bleeding; J44.9 Chronic obstructive pulmonary disease, unspecified; I10 Essential (primary) hypertension; E78.5 Hyperlipidemia, unspecified; E66.9 Obesity, unspecified; I25.10 Atherosclerotic heart disease of native coronary artery without angina pectoris; I25.2 Old myocardial infarction; G47.33 Obstructive sleep apnea (adult) (pediatric); M54.9 Dorsalgia, unspecified; K21.9 Gastro-esophageal reflux disease without esophagitis; N40.0 Benign prostatic hyperplasia without lower urinary tract symptoms; Z86.010 Personal history of colon polyps; Z79.82 Long term (current) use of aspirin; Z79.899 Other long term (current) drug therapy; Z95.5 Presence of coronary angioplasty implant and graft; Z98.1 Arthrodesis status; Z68.35 Body mass index [BMI] 35.0-35.9, adult
CPT/HCPCS: 88305

== ENCOUNTER → 2020-03-10 | Outpatient (CLI) | payer MEDICARE, OTHER ==
[~2020-03-10] MED LIST changes: +ASPI-1238 PO; -ASPI-983 PO; -ENAL10TA PO; +ENAL10TA16 PO
== END ==
LOC: LABNPT 05:58
PROVIDERS: ATTEND Orthopaedic Surgery
DX: Z01.812 Encounter for preprocedural laboratory examination (principal); Z20.828 Contact with and (suspected) exposure to other viral communicable diseases
CPT/HCPCS: 87635

== ENCOUNTER → 2020-10-08 | Outpatient (CLI) | payer MEDICARE, OTHER ==
[~2020-10-08] MED LIST changes: -MONT10TA26 PO; +MONT10TA32 PO
--- NOTE | 2020-10-08 14:37 | Diagnostic Imaging Report ---
CLINICAL INDICATION: Patient had a couple of previous lumbar spine surgeries and still has a lot of low back pain. EXAM: MRI of the lumbar spine performed without IV contrast. Sequences include sagittal T2, sagittal T1, sagittal T2 fat-sat, sagittal STIR, and axial T2. COMPARISON: CT scan of the lumbar spine without contrast dated 07/05/2019. CT scan of the lumbar spine without contrast dated 10/08/2020. FINDINGS: There are postop changes to the lumbar spine with L2 to the through S1 posterior spinal fusion hardware with interbody disk grafts seen. There are L3-L5 laminectomies seen. These postop changes have been extended compared to the prior CT scan dated 07/05/2019 where patient had L3-L5 posterior spinal fusion hardware. There is a small fluid collection in the posterior laminectomy postop area seen at the L4 vertebral body level which measures grossly 1.0 cm x 3.3 cm x 3.5 cm (AP x Trans x CC) . This fluid collection causes no significant encroachment upon the thecal sac. The visualized portions of the distal thoracic spinal cord, conus medullaris, and cauda equina nerve roots are unremarkable. The conus medullaris tip is seen at the lower L1 vertebral body level. Besides the postop changes, there is no other significant paraspinal soft tissue abnormality. Visualized lower thoracic spine: Again seen diffuse disk bulges involving the T10-T11, T11-T12, and T12-L1 levels. There is mild to moderate central canal stenosis at the T10-T11 level with at least moderate bilateral neural foramen narrowing. There is severe left T11-T12 neural foramen narrowing and no significant right T11-T12 neural foramen narrowing. There is mild central canal narrowing at the T11-T12 region. There is no significant central canal or neural foramen narrowing seen at the T12-L1 level. L1-L2: There is a diffuse disk bulge with moderate loss of disk space height and bilateral facet arthropathy. There is severe bilateral neural foramen narrowing. Susceptibility hardware artifact slightly obscures the region. There is at least mild central canal narrowing. L2-L3: There is interval decompression of the thecal sac posteriorly with currently no significant central canal narrowing. Susceptibility hardware artifact slightly obscures the neural foramina regions. There is bilateral neural foramen narrowing which is better seen on comparison CT scan. L3-L4: There is stable decompression of the thecal sac posteriorly with no significant central canal narrowing. The neural foramina are obscured by susceptibility hardware artifact and better visualized on the comparison CT scan. L4-L5: There is stable grade 1 anterolisthesis of L4 on L5 which is surgically fused. There is no significant central canal narrowing. The neural foramina regions are obscured by streak artifact. The neural foramina is better seen on comparison CT scan. There is no significant central canal stenosis. L5-S1: There is again seen diffuse disk bulge and moderate loss of disk space height. There is no significant central canal narrowing. Neural foramen are partially obscured by hardware streak artifact and better seen on comparison CT scan. IMPRESSION: 1: There is interval extension of the previously seen posterior lumbar fusion hardware which now extends from the L2-S1 levels. There is a small fluid collection in the laminectomy region at the L4 level which causes no significant encroachment upon the central canal. 2: The neural foramen regions are partially obscured by susceptibility hardware artifact. CT scan would better evaluate. 3: There is moderate stenosis of the central canal at the T10-T11 level due to facet arthropathy and diffuse disk bulge. Otherwise, the remainder of the lumbar spine shows no significant central canal stenosis. 4: Degenerative disease of the lumbar spine as described above. Dictated by: Dictated on workstation # [id number]
--- NOTE | 2020-10-08 15:28 | Diagnostic Imaging Report ---
PROCEDURE: CT lumbar spine without contrast. TECHNIQUE: Multiple contiguous axial images were obtained through the lumbar spine without the use of intravenous contrast. Sagittal and coronal reformations were then performed. Auto Exposure Controls were utilized during the CT exam to meet ALARA standards for radiation dose reduction. INDICATION: Lumbar fusion. COMPARISON: 07/05/2019 FINDINGS: There is diffuse osteopenia. There is posterior fusion of the lumbar spine from L2 down to S1 with bilateral pedicle screws and posterior fusion rods. There are interbody disc spacers at each level as well. There is also left lateral fusion at L2-L3 and L3-L4. No hardware fracture is seen. There is mild loosening at the tip of the right L5 pedicle screw. There is also loosening about the bilateral S1 pedicle screws. The disc spacer at the L5-S1 appears to be obliquely oriented but remains within the disc space. There is grade 1-2 anterolisthesis at L4-L5 measuring 13 mm, which is unchanged. There is new collapse of the L5 vertebral body with the disc spacer remaining in place. There is severe disc height loss at L1-L2 as well as in the lower thoracic spine. There are osteophytes at the endplates. L3-L5 laminectomy changes are noted. There is aortic atherosclerosis. There appears to be reticular opacity in the lung bases which is incompletely seen. The contents of the spinal canal are suboptimally evaluated on CT and are better seen on the concurrent MRI. There does appear to be a foraminal stenosis at each level in the lumbar spine bilaterally. On the right, this is most severe at L4-L5 and L5-S1. On the left, this is most severe at L4-L5 and L5-S1. There is scarring in the soft tissues posteriorly. IMPRESSION: 1. Posterior fusion from L2 down to S1 with loosening about the distal right L5 pedicle screw and the bilateral S1 pedicle screws. There is an oblique orientation of the L5-S1 spacer. 2. Chronic collapse of the anterior L5 vertebral body but the disc spacer remains in place. L4-L5 anterolisthesis is unchanged. 3. Foraminal stenosis at L4-L5 and L5-S1 bilaterally. 4. Interstitial fibrotic changes in the lung bases, partially visualized. Dictated by: Dictated on workstation # [id number]
== END ==
LOC: RAD 12:14
PROVIDERS: ATTEND Physician Assistant
DX: M48.07 Spinal stenosis, lumbosacral region (principal); M43.16 Spondylolisthesis, lumbar region; M51.17 Intervertebral disc disorders with radiculopathy, lumbosacral region; M48.04 Spinal stenosis, thoracic region; M51.24 Other intervertebral disc displacement, thoracic region; J84.10 Pulmonary fibrosis, unspecified; Z98.1 Arthrodesis status
CPT/HCPCS: 72131; 72148

== ENCOUNTER 2022-03-24 21:47 | Emergency (ER) | payer MEDICARE, OTHER ==
[~2022-03-24 21:47] MED LIST changes: +BRIMON0.2 OU; +CYCL10TA25 PO; -CYCL10TA9 PO; +LEVO-55 PO; +MONT-40 PO; -MONT10TA32 PO; -NYST15CR TP; +NYST15CR35 TP; +POTA-160 PO; -POTA10TA6 PO
[2022-03-24 23:04] LABS: ALBUMIN 3.9 GM/DL (3.2-4.5); CALCIUM 9.9 MG/DL (8.5-10.1); POTASSIUM 3.9 MMOL/L (3.6-5.0); TOTAL PROTEIN 6.9 GM/DL (6.4-8.2)
[2022-03-24 23:05] LABS: BILIRUBIN,TOTAL 0.6 MG/DL (0.1-1.0); CREATININE SERUM 1.07 MG/DL (0.60-1.30)
[2022-03-24 23:16] LABS: HEMATOCRIT 44 % (40-54); HEMOGLOBIN 15.1 g/dL (13.3-17.7); MEAN CORPUSCULAR HEMOGLOBIN 32 pg (25-34); MEAN CORPUSCULAR HGB CONC 34 g/dL (32-36); MEAN CORPUSCULAR VOLUME 95 fL (80-99); WHITE BLOOD COUNT 7.5 10^3/uL (4.3-11.0)
[2022-03-24 23:17] LABS: BASOPHILS % (AUTO) 0 % (0-10); EOSINOPHILS # (AUTO) 0.1 10^3/uL (0.0-0.3); EOSINOPHILS % (AUTO) 1 % (0-10); LYMPHOCYTES # (AUTO) 1.1 X 10^3 (1.0-4.0); LYMPHOCYTES % (AUTO) 15 % (12-44); MEAN PLATELET VOLUME 9.3 fL (9.0-12.2); MONOCYTES # (AUTO) 1.3 X 10^3 (0.0-1.0); MONOCYTES % (AUTO) 17 % (0-12); NEUTROPHILS # (AUTO) 4.9 X 10^3 (1.8-7.8); NEUTROPHILS % (AUTO) 66 % (42-75); PLATELET COUNT 316 10^3/uL (130-400)
--- NOTE | 2022-03-24 23:42 | ED Cough/URI ---
General Chief Complaint: COVID19 Suspect/Confirmed Stated Complaint: WEAKNESS Nursing Triage Note: PT ARRIVAL TO ER [facility]IA [facility] WITH COMPLAINT OF FATIGUE, COUGH, FEVER X2 DAYS. PT STATES THAT HE HAS GOTTEN WORSE TIME HAS GONE ON. PT'S SPOUSE HAS SAME SYMPTOMS PER PATIENT. PT IS COVID VACCINATED X2 WITHOUT BOOSTER. Source: patient Exam Limitations: no limitations (DONALDO LOAIZA) History of Present Illness Date Seen by Provider: Mar 24, 2022 Time Seen by Provider: 23:00 Initial Comments This is a 76 year old male who presents via EMS with cough, fever, and weakness. Patient reports onset of cough and fever was two days ago; he states these symptoms are worsening. Patient reports he is experiencing SOA but states this is normal for him with his COPD. Patient reports he took tylenol yesterday and motrin this morning to reduce his fever. Patient reports his weakness is located in his lower back; states he had two back surgeries last year and has had weakness ever since. Patient also reports an episode of dysuria yesterday; denies hematuria. Patient reports that in September 2021 he was hospitalized with sepsis; he is unsure what the source of infection was. Patient states he feels similarly to how he did prior to his hospitalization with sepsis. Timing/Duration: getting worse, other (onset two days ago) Severity/Quality: mild Prior Episodes/Possible Cause: no prior episodes Associated Symptoms: cough, fever/chills, shortness of breath (DONALDO LOAIZA) Allergies and Home Medications Allergies Coded Allergies: No Known Drug Allergies (Unverified , 01/17/20) Patient Home Medication List Home Medication List Reviewed: Yes (DONALDO LOIAZA) Acetaminophen (Tylenol Extra Strength) 500 Mg Tablet, 500-1,000 MG PO Q4H PRN for PAIN-MILD (1-4), (Reported) Entered as Reported by: SAURAV SAMSON on 07/05/19 1109 Albuterol Sulfate (Ventolin Hfa) 1 Puff Puff, 2 PUFF INH QID PRN for SHORTNESS OF BREATH Prescribed by: DINA MURILLO on 10/04/21 0935 Atorvastatin Calcium (Atorvastatin Calcium) 40 Mg Tablet, 40 MG PO DAILY, (Reported) Entered as Reported by: JUN PERKINS on 06/29/19 1321 Azithromycin (Azithromycin) 250 Mg Tablet, 250 MG PO DAILY Prescribed by: KULDIP LANDAVERDE on 03/25/22 0111 Brimonidine Tartrate (Brimonidine Tartrate) 0.2 % Btl, 1 DROP OU HS, (Reported) Entered as Reported by: HYUN CLEMENS on 10/01/21 1250 Carvedilol (Carvedilol) 3.125 Mg Tablet, 3.125 MG PO BID, (Reported) Entered as Reported by: JUN PERKINS on 06/29/19 1321 Dexamethasone (Dexamethasone) 6 Mg Tablet, 6 MG PO DAILY Prescribed by: KULDIP LANDAVERDE on 03/25/22 0111 Diphenhydramine HCl (Benadryl) 25 Mg Capsule, 25-50 MG PO HS PRN for ALLERGIES, (Reported) Entered as Reported by: SAURAV SAMSON on 07/05/19 1109 Fluticasone/Salmeterol (Advair 250-50 Diskus) 1 Each Blst.w.dev, 1 PUFF IH BID Prescribed by: DINA MURILLO on 10/04/21 0935 Ibuprofen (Advil) 200 Mg Tablet, 400 MG PO TID PRN for PAIN-MILD (1-4), (Reported) Entered as Reported by: SAURAV SAMSON on 07/05/19 1109 Levofloxacin (Levofloxacin) 500 Mg Tablet, 500 MG PO DAILY Prescribed by: DINA MURILLO on 10/03/21 1104 Losartan Potassium (Losartan Potassium) 50 Mg Tablet, 50 MG PO DAILY, (Reported) Entered as Reported by: JUN PERKINS on 06/29/19 1321 Review of Systems Review of Systems Constitutional: fever, weakness (lower back) EENTM: no symptoms reported Respiratory: cough, short of breath Cardiovascular: no symptoms reported Gastrointestinal: no symptoms reported Genitourinary: dysuria (one occurrence yesterday) Musculoskeletal: other (lower back weakness) Skin: no symptoms reported Psychiatric/Neurological: Weakness (lower back) Hematologic/Lymphatic: No Symptoms Reported Immunological/Allergic: no symptoms reported (DONALDO LOAIZA) All Other Systems Reviewed Negative Unless Noted: Yes (DONALDO LOAIZA) Past Omsmigt-Dnztak-Qlaysq Hx Patient Social History Tobacco Use?: No Use of E-Cig and/or Vaping dev: No Substance use?: No Alcohol Use?: No Pt feels they are or have been: No (DONALDO LOAIZA) Immunizations Up To Date Tetanus Booster (TDap): More than 5yrs Influenza Vaccine Up-to-Date: Yes; Up-to-Date First/Initial COVID19 Vaccinat: Jun 2020 Second COVID19 Vaccination Bruno: October 2020 Third COVID19 Vaccination Date: NO 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 (DONALDO LOAIZA) Seasonal Allergies Seasonal Allergies: Yes (DONALDO LOAIZA) Past Medical History Surgery/Hospitalization HX: L3-L5 spinal fusion, stents, appy, BPH Surgeries: Yes (cysts removed thumb/scapula/HEAD, CAROTID ARTERY,back, ) Appendectomy, Coronary Stent Respiratory: Yes (USES BIPAP, GETS SOB WITH EXERCISE) Sleep Apnea, COPD Currently Using CPAP: No Currently Using BIPAP: Yes Cardiac: Yes (STENTS X3) Coronary Artery Disease, Heart Attack, High Cholesterol Neurological: No Reproductive Disorders: No Sexually Transmitted Disease: No HIV/AIDS: No Genitourinary: No Benign Prostatic Hyperpl Gastrointestinal: Yes (REFLUX RARELY, OCCASIONAL CONSTIPATION) Gastroesophageal Reflux Musculoskeletal: Yes (Closed reductions) Chronic Back Pain, Fractures Endocrine: No HEENT: Yes (glasses - near sighted, DENTURES) Loss of Vision: Denies Hearing Impairment: Denies Cancer: Yes (PRE-CANCEROUS) Skin Did You Recieve Any Treatments: No Psychosocial: No Integumentary: Yes (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 0.0oz. [id number]; 36.25 BMI Method:Stated General Appearance: WD/WN, no apparent distress Eyes: Bilateral Eye PERRL, Bilateral Eye EOMI HEENT: PERRL/EOMI Respiratory: no respiratory distress, no accessory muscle use, decreased breath sounds, wheezing (soft expiratory wheezing) Cardiovascular: normal peripheral pulses, regular rate, rhythm, no edema, no murmur Gastrointestinal: normal bowel sounds, non tender, soft Neurologic/Psychiatric: alert, normal mood/affect, oriented x 3 Skin: normal color, warm/dry Lymphatic: no adenopathy (DONALDO LOAIZA) Progress/Results/Core Measures Suspected Sepsis SIRS Temperature: Pulse: 92 Respiratory Rate: 24 Laboratory Tests 03/24/22 22:05: 03/24/22 22:58: White Blood Count 7.5 Blood Pressure 159 /119 Mean: 132 Laboratory Tests 03/24/22 22:05: Creatinine 1.07, Total Bilirubin 0.6 03/24/22 22:58: Platelet Count 316 (DONALDO LOAIZA) Results/Orders Lab Results Laboratory Tests Test 03/24/22 22:05 03/24/22 22:58 03/25/22 00:20 Range/Units Sodium Level 132 L 135-145 MMOL/L Potassium Level 3.9 3.6-5.0 MMOL/L Chloride Level 101 98-107 MMOL/L Carbon Dioxide Level 21 21-32 MMOL/L Anion Gap 10 5-14 MMOL/L Blood Urea Nitrogen 7 7-18 MG/DL Creatinine 1.07 0.60-1.30 MG/DL Estimat Glomerular Filtration Rate 71 BUN/Creatinine Ratio 7 Glucose Level 175 H 70-105 MG/DL Calcium Level 9.9 8.5-10.1 MG/DL Corrected Calcium 10.0 8.5-10.1 MG/DL Total Bilirubin 0.6 0.1-1.0 MG/DL Aspartate Amino Transf (AST/SGOT) 62 H 5-34 U/L Alanine Aminotransferase (ALT/SGPT) 55 0-55 U/L Alkaline Phosphatase 104 40-136 U/L C-Reactive Protein High Sensitivity 1.00 H 0.00-0.50 MG/DL Total Protein 6.9 6.4-8.2 GM/DL Albumin 3.9 3.2-4.5 GM/DL Influenza Type A (RT-PCR) Not Detected Not Detecte Influenza Type B (RT-PCR) Not Detected Not Detecte SARS-CoV-2 RNA (RT-PCR) Detected H Not Detecte White Blood Count 7.5 4.3-11.0 10^3/uL Red Blood Count 4.66 4.30-5.52 10^6/uL Hemoglobin 15.1 13.3-17.7 g/dL Hematocrit 44 40-54 % Mean Corpuscular Volume 95 80-99 fL Mean Corpuscular Hemoglobin 32 25-34 pg Mean Corpuscular Hemoglobin Concent 34 32-36 g/dL Red Cell Distribution Width 13.1 10.0-14.5 % Platelet Count 316 130-400 10^3/uL Mean Platelet Volume 9.3 9.0-12.2 fL Immature Granulocyte % (Auto) 1 % Neutrophils (%) (Auto) 66 42-75 % Lymphocytes (%) (Auto) 15 12-44 % Monocytes (%) (Auto) 17 H 0-12 % Eosinophils (%) (Auto) 1 0-10 % Basophils (%) (Auto) 0 0-10 % Neutrophils # (Auto) 4.9 1.8-7.8 X 10^3 Lymphocytes # (Auto) 1.1 1.0-4.0 X 10^3 Monocytes # (Auto) 1.3 H 0.0-1.0 X 10^3 Eosinophils # (Auto) 0.1 0.0-0.3 10^3/uL Basophils # (Auto) 0.0 0.0-0.1 10^3/uL Immature Granulocyte # (Auto) 0.1 0.0-0.1 10^3/uL Urine Color YELLOW Urine Clarity CLEAR Urine pH 6.5 5-9 Urine Specific [place] 1.020 1.016-1.022 Urine Protein NEGATIVE NEGATIVE Urine Glucose (UA) TRACE H NEGATIVE Urine Ketones NEGATIVE NEGATIVE Urine Nitrite NEGATIVE NEGATIVE Urine Bilirubin NEGATIVE NEGATIVE Urine Urobilinogen 0.2 < = 1.0 MG/DL Urine Leukocyte Esterase NEGATIVE NEGATIVE Urine RBC (Auto) NEGATIVE NEGATIVE Urine RBC NONE /HPF Urine WBC NONE /HPF Urine Squamous Epithelial Cells RARE /HPF Urine Crystals NONE /LPF Urine Bacteria NEGATIVE /HPF Urine Casts NONE /LPF Urine Mucus NEGATIVE /LPF Urine Culture Indicated NO (KULDIP SANCHEZ MD) My Orders Orders - KULDIP SANCHEZ MD Isolation Central Supply Req (03/24/22 22:58) Cbc With Automated Diff (03/24/22 22:58) Comprehensive Metabolic Panel (03/24/22 22:58) Hs C Reactive Protein (03/24/22 22:58) Chest 1 View, Ap/Pa Only (03/24/22 22:58) Covid 19 Inhouse Test (03/24/22 22:05) Influenza A And B By Pcr (03/24/22 22:05) Ua Culture If Indicated (03/25/22 00:01) Bebtelovimab (Bebtelovimab) (03/25/22 00:30) Dexamethasone Injection (Decadron Inje (03/25/22 00:30) Azithromycin Tablet (Zithromax Tablet) (03/25/22 00:22) Ed Iv/Invasive Line Start (03/25/22 00:22) (KULDIP SANCHEZ MD) Medications Given in ED Current Medications Medications Dose Ordered Sig/Ana Cristina Route Start Time Stop Time Status Last Admin Dose Admin Bebtelovimab 175 mg ONCE ONCE IV 03/25/22 00:30 03/25/22 00:31 DC 03/25/22 00:58 175 MG Dexamethasone Sodium Phosphate 6 mg ONCE ONCE IV 03/25/22 00:30 03/25/22 00:31 DC 03/25/22 00:58 6 MG (KULDIP SANCHEZ MD) Vital Signs/I&O 03/24/22 03/24/22 03/25/22 21:50 21:50 01:58 Temp 36.0 Pulse 92 83 Resp 24 20 B/P (MAP) 159/119 (132) 143/91 Pulse Ox 94 97 O2 Delivery Room Air Room Air Room Air (KULDIP SANCHEZ MD) Vital Signs/I&O Capillary Refill : Less Than 3 Seconds (DONALDO LOAIZA) Blood Pressure Mean: 132 Diagnostic Imaging Diagonstic Imaging: Xray Plain Films/CT/US/NM/MRI: chest Comments Chest x-ray viewed by me and report reviewed. Patient has a chronic interstitial markings making acute pathology difficult to differentiate. See report below: NAME: [facility] REC#: [id number] PT STATUS: DEP ER : [id number] PHYSICIAN: KULDIP SANCHEZ MD ADMIT DATE: 03/24/22/ER Draft Date of Exam:03/24/22 CHEST 1 VIEW, AP/PA ONLY INDICATION: Cough, fever and fatigue. Comparison is made with prior examination of 09/30/2021. FINDINGS: There is cardiomegaly. There are some diffuse bilateral pulmonary infiltrates. There is no pleural effusion or pneumothorax. The mediastinum is unremarkable. IMPRESSION: Diffuse bilateral pulmonary infiltrates. This may reflect pneumonia or possibly some pulmonary edema. Recommend clinical correlation. Cardiomegaly Dictated on workstation # [id number] Dict: 03/25/22 0600 Trans: 03/25/22 0605 [facility] [id number] Interpreted by: PAYTON SWANSON MD (KULDIP SANCHEZ MD) Departure Impression Primary Impression: COVID-19 Additional Impression: COPD exacerbation Disposition: HOME, SELF-CARE Condition: Improved Departure-Patient Inst. Decision time for Depature: 01:06 (KULDIP SANCHEZ MD) Referrals: FABY CR MD (PCP/Family) Primary Care Physician Patient Instructions: Bebtelovimab FDA Fact Sheet, COPD Exacerbation, Adult ED, COVID-19 Overview Add. Discharge Instructions: Drink plenty of clear liquids to stay well-hydrated. Eat a well-balanced diet and take a multivitamin daily. You may take Tylenol (acetaminophen) up to 1000 mg every 6 hours as needed for pain or fever. You may add ibuprofen sparingly up to 400 mg every 6 hours as needed for additional treatment of pain and fever. Use your inhalers as previously directed for shortness of breath and wheezing. Monitor your oxygen saturations multiple times a day and when you are feeling increased shortness of breath. If you have multiple readings under 92% or any readings under 90%, return to the emergency room. Continue using CPAP at night or anytime there is potential for you to fall asleep. Complete the steroids and antibiotics as prescribed. Remain in quarantine for 5 days starting with your first full day of symptoms. You may come out of quarantine after 5 days if your significant symptoms have re solved. Mask for an additional 5 days when around others. Call with questions or concerns. Return to the ER if you have any other worsening of condition. All discharge instructions reviewed with patient and/or family. Voiced understanding. Scripts Azithromycin (Azithromycin) 250 Mg Tablet 250 MG PO DAILY, #4 TAB 0 Refills Start evening of March 25 or morning of March 26. Prov: KULDIP SANCHEZ MD 03/25/22 Dexamethasone (Dexamethasone) 6 Mg Tablet 6 MG PO DAILY, #9 TAB Prov: KULDIP SANCHEZ MD 03/25/22 Medical Student Attestation and Attending Note: I have personally interviewed and examined this patient along with Donna Loaiza, MS 4. I have reviewed student documentation including history, physical, and assessments. I agree with the documentation except where otherwise noted. Exam: General: Alert, oriented, no acute distress, well developed, obese HEENT: Normocephalic and atraumatic, mucous membranes moist Heart: Regular rate and rhythm without murmur Lungs: Bibasilar crackles, prolonged expiratory phase with use of abdominal musculature, faint wheeze on the right Abdomen: Soft, nontender, nondistended, normal bowel sounds Neuropsych: Alert, oriented, no focal deficits Skin: Warm and dry without rashes Patient was found to have COVID-19. We discussed options for treatment including Paxlovid and monoclonal antibody therapy. Due to potential for interactions with medications, he elected to proceed with monoclonal antibody therapy which was administered in the emergency room. He appeared to have COPD exacerbation as well and was therefore given dexamethasone and azithromycin. Chest x-ray was difficult to evaluate due to chronic interstitial markings. Return precautions were reviewed with the patient along with discharge instructions. See discharge instructions for further discussion. (KULDIP SANCHEZ MD) Copy Copies To 1: FABY CR MD, MIKAELA Mar 24, 2022 23:42 KULDIP SANCHEZ MD Mar 25, 2022 01:11
[2022-03-25] MEDS ORDERED: AZITHROMYCIN 250 MG TAB (ZITHROMAX) PO STA (00:22)
[2022-03-25] MEDS ORDERED: BEBTELOVIMAB 175 MG/2 ML VIAL IV ONE (00:30)
[2022-03-25 00:31] LABS: BILIRUBIN,URINE NEGATIVE (NEGATIVE); CLARITY,URINE CLEAR; COLOR,URINE YELLOW; GLUCOSE, URINE (UA) TRACE (NEGATIVE); KETONES,URINE NEGATIVE (NEGATIVE); LEUKOCYTE ESTERASE ,URINE NEGATIVE (NEGATIVE); NITRITE,URINE NEGATIVE (NEGATIVE); PH,URINE 6.5 (5-9); PROTEIN,URINE NEGATIVE (NEGATIVE)
[2022-03-25 00:39] LABS: BACTERIA,URINE NEGATIVE /HPF; SQUAMOUS EPITHELIAL CELL,UR RARE /HPF
[2022-03-25] MEDS ORDERED: AZIT250T12 PO (01:11)
[2022-03-25] MEDS ORDERED: DEXA6TAB PO (01:11)
[2022-03-25 01:58] VITALS: BP 143/91
--- NOTE | 2022-03-25 06:05 | Diagnostic Imaging Report ---
INDICATION: Cough, fever and fatigue. Comparison is made with prior examination of 09/30/2021. FINDINGS: There is cardiomegaly. There are some diffuse bilateral pulmonary infiltrates. There is no pleural effusion or pneumothorax. The mediastinum is unremarkable. IMPRESSION: Diffuse bilateral pulmonary infiltrates. This may reflect pneumonia or possibly some pulmonary edema. Recommend clinical correlation. Cardiomegaly Dictated by: Dictated on workstation # [id number]
== END 2022-03-25 02:00 | disposition home or self-care (01) ==
LOC: EDUNIT# 22:44 → ER 22:44
DX: U07.1 COVID-19 (principal); J44.1 Chronic obstructive pulmonary disease with (acute) exacerbation; G47.30 Sleep apnea, unspecified; Z99.89 Dependence on other enabling machines and devices
CPT/HCPCS: 36415; 71045; 80053; 81000; 85025; 86141; 87636

== ENCOUNTER 2022-09-21 16:30 | Emergency (ER) | payer MEDICARE, OTHER ==
[~2022-09-21 16:30] MED LIST changes: +ALBU8.5H6 IH; +CLOP-31 PO; -CLOP75TA69 PO; +DEXA6TAB PO; +ENAL-66 PO; -ENAL10TA16 PO; +ENLP10T PO; -ENLP5T PO; -P EP PO; -RT-ALBUINH IH; +[UNRECOGNIZED DRUG - CODE] PO
--- NOTE | 2022-09-21 16:44 | ED General ---
General Chief Complaint: General Problems/Pain Stated Complaint: WEEKNESS Source of Information: Patient, EMS Exam Limitations: No Limitations History of Present Illness Date Seen by Provider: Sep 21, 2022 Time Seen by Provider: 16:32 Initial Comments 76-year-old male with past medical history of CAD status post stenting, hypertension, hyperlipidemia coming in via EMS from home after he was kneeling down to get something, and was unable to get back up. He states he feels weak in his legs, but his arms are very strong. He states this happened sometime last year, at that time he was diagnosed with sepsis. He denies any chest pain, shortness of breath, abdominal pain, nausea, vomiting, diarrhea, fever, chills, focal weakness or numbness, vision changes, headache, back pain, bowel or bladder changes, or any other concerns. He states he otherwise feels very well. Allergies and Home Medications Allergies Coded Allergies: No Known Drug Allergies (Unverified , 01/17/20) Patient Home Medication List Home Medication List Reviewed: Yes Acetaminophen (Tylenol Extra Strength) 500 Mg Tablet, 500-1,000 MG PO Q4H PRN for PAIN-MILD (1-4), (Reported) Entered as Reported by: SAURAV SAMSON on 07/05/19 1109 Albuterol Sulfate (Ventolin Hfa) 1 Puff Puff, 2 PUFF INH QID PRN for SHORTNESS OF BREATH Prescribed by: DINA MURILLO on 10/04/21 0935 Atorvastatin Calcium (Atorvastatin Calcium) 40 Mg Tablet, 40 MG PO DAILY, (Reported) Entered as Reported by: JUN PERKINS on 06/29/19 1321 Azithromycin (Azithromycin) 250 Mg Tablet, 250 MG PO DAILY Prescribed by: KULDIP LANDAVERDE on 03/25/22 0111 Brimonidine Tartrate (Brimonidine Tartrate) 0.2 % Btl, 1 DROP OU HS, (Reported) Entered as Reported by: HYUN CLEMENS on 10/01/21 1250 Carvedilol (Carvedilol) 3.125 Mg Tablet, 3.125 MG PO BID, (Reported) Entered as Reported by: JUN PERKINS on 06/29/19 1321 Dexamethasone (Dexamethasone) 6 Mg Tablet, 6 MG PO DAILY Prescribed by: KULDIP LANDAVERDE on 03/25/22 0111 Diphenhydramine HCl (Benadryl) 25 Mg Capsule, 25-50 MG PO HS PRN for ALLERGIES, (Reported) Entered as Reported by: SAURAV SAMSON on 07/05/19 1109 Fluticasone/Salmeterol (Advair 250-50 Diskus) 1 Each Blst.w.dev, 1 PUFF IH BID Prescribed by: DINA MURILLO on 10/04/21 0935 Ibuprofen (Advil) 200 Mg Tablet, 400 MG PO TID PRN for PAIN-MILD (1-4), (Reported) Entered as Reported by: SAURAV SAMSON on 07/05/19 1109 Levofloxacin (Levofloxacin) 500 Mg Tablet, 500 MG PO DAILY Prescribed by: DINA MURILLO on 10/03/21 1104 Losartan Potassium (Losartan Potassium) 50 Mg Tablet, 50 MG PO DAILY, (Reported) Entered as Reported by: JUN PERKINS on 06/29/19 1321 Review of Systems Review of Systems Constitutional: No fever EENTM: no symptoms reported Respiratory: no symptoms reported Cardiovascular: no symptoms reported Gastrointestinal: no symptoms reported Genitourinary: no symptoms reported Musculoskeletal: see HPI Skin: no symptoms reported Psychiatric/Neurological: No Symptoms Reported Past Awmbvyl-Ksjijq-Lkwfsm Hx Patient Social History Tobacco Use?: No Immunizations Up To Date Tetanus Booster (TDap): More than 5yrs First/Initial COVID19 Vaccinat: Jun 2020 Second COVID19 Vaccination Bruno: October 2020 Third COVID19 Vaccination Date: NO Seasonal Allergies Seasonal Allergies: Yes Past Medical History Surgery/Hospitalization HX: L3-L5 spinal fusion, stents, appy, BPH Surgeries: Yes (cysts removed thumb/scapula/HEAD, CAROTID ARTERY,back, ) Appendectomy, Coronary Stent Respiratory: Yes (USES BIPAP, GETS SOB WITH EXERCISE) Sleep Apnea, COPD Currently Using CPAP: No Currently Using BIPAP: Yes Cardiac: Yes (STENTS X3) Coronary Artery Disease, Heart Attack, High Cholesterol Neurological: No Reproductive Disorders: No Sexually Transmitted Disease: No HIV/AIDS: No Genitourinary: No Benign Prostatic Hyperpl Gastrointestinal: Yes (REFLUX RARELY, OCCASIONAL CONSTIPATION) Gastroesophageal Reflux Musculoskeletal: Yes (Closed reductions) Chronic Back Pain, Fractures Endocrine: No HEENT: Yes (glasses - near sighted, DENTURES) Loss of Vision: Denies Hearing Impairment: Denies Cancer: Yes (PRE-CANCEROUS) Skin Did You Recieve Any Treatments: No Psychosocial: No Integumentary: Yes (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 0.0oz. 107.427290yg; 36.25 BMI Method:Stated General Appearance: No Apparent Distress, WD/WN Eyes: Bilateral Eye Normal Inspection HEENT: PERRL/EOMI, Normal ENT Inspection, Pharynx Normal Neck: Full Range of Motion, Normal Inspection, Non Tender, Supple Respiratory: Chest Non Tender, Lungs Clear, Normal Breath Sounds, No Accessory Muscle Use, No Respiratory Distress Cardiovascular: Regular Rate, Rhythm, No Edema, Normal Peripheral Pulses Gastrointestinal: Normal Bowel Sounds, Non Tender, Soft; No Distended, No Guarding Back: Normal Inspection, No CVA Tenderness, No Vertebral Tenderness Extremity: Normal Capillary Refill, Normal Inspection, Normal Range of Motion, Non Tender, No Calf Tenderness, No Pedal Edema Neurologic/Psychiatric: Alert, Oriented x3, No Motor/Sensory Deficits, Normal Mood/Affect, pallet sorter II-XII Norm as Tested, Other (Normal muuplc-ml-apox, normal glsq-hg-mixo, normal visual cruz and visual acuity) Skin: Normal Color, Warm/Dry Focused Exam Lactate Level 09/21/22 16:40: Lactic Acid Level 2.45*H Lactic Acid Level Laboratory Tests Test 09/21/22 16:40 Lactic Acid Level 2.45 MMOL/L (0.50-2.00) *H Progress/Results/Core Measures Suspected Sepsis SIRS Temperature: Pulse: Respiratory Rate: Laboratory Tests 09/21/22 16:40: White Blood Count 9.9 Blood Pressure / Mean: 09/21/22 16:40: Lactic Acid Level 2.45*H Laboratory Tests 4/11/23 16:40: Creatinine 0.97, Platelet Count 366, Total Bilirubin 0.8 Results/Orders Lab Results Laboratory Tests Test 09/21/22 16:40 09/21/22 17:15 Range/Units White Blood Count 9.9 4.3-11.0 10^3/uL Red Blood Count 4.89 4.30-5.52 10^6/uL Hemoglobin 16.0 13.3-17.7 g/dL Hematocrit 47 40-54 % Mean Corpuscular Volume 95 80-99 fL Mean Corpuscular Hemoglobin 33 25-34 pg Mean Corpuscular Hemoglobin Concent 34 32-36 g/dL Red Cell Distribution Width 12.7 10.0-14.5 % Platelet Count 366 130-400 10^3/uL Mean Platelet Volume 9.2 9.0-12.2 fL Immature Granulocyte % (Auto) 1 % Neutrophils (%) (Auto) 68 42-75 % Lymphocytes (%) (Auto) 20 12-44 % Monocytes (%) (Auto) 9 0-12 % Eosinophils (%) (Auto) 2 0-10 % Basophils (%) (Auto) 0 0-10 % Neutrophils # (Auto) 6.7 1.8-7.8 10^3/uL Lymphocytes # (Auto) 2.0 1.0-4.0 10^3/uL Monocytes # (Auto) 0.9 0.0-1.0 10^3/uL Eosinophils # (Auto) 0.2 0.0-0.3 10^3/uL Basophils # (Auto) 0.0 0.0-0.1 10^3/uL Immature Granulocyte # (Auto) 0.1 0.0-0.1 10^3/uL Sodium Level 138 135-145 MMOL/L Potassium Level 3.8 3.6-5.0 MMOL/L Chloride Level 106 98-107 MMOL/L Carbon Dioxide Level 19 L 21-32 MMOL/L Anion Gap 13 5-14 MMOL/L Blood Urea Nitrogen 5 L 7-18 MG/DL Creatinine 0.97 0.60-1.30 MG/DL Estimat Glomerular Filtration Rate 80 BUN/Creatinine Ratio 5 Glucose Level 135 H 70-105 MG/DL Lactic Acid Level 2.45 *H 0.50-2.00 MMOL/L Calcium Level 9.3 8.5-10.1 MG/DL Corrected Calcium 9.2 8.5-10.1 MG/DL Magnesium Level 2.2 1.6-2.4 MG/DL Total Bilirubin 0.8 0.1-1.0 MG/DL Aspartate Amino Transf (AST/SGOT) 32 5-34 U/L Alanine Aminotransferase (ALT/SGPT) 38 0-55 U/L Alkaline Phosphatase 90 40-136 U/L Troponin I < 0.028 <0.028 NG/ML Total Protein 7.0 6.4-8.2 GM/DL Albumin 4.1 3.2-4.5 GM/DL Lipase 23 8-78 U/L Urine Color YELLOW Urine Clarity SL CLOUDY Urine pH 6.0 5-9 Urine Specific Dresher 1.025 H 1.016-1.022 Urine Protein TRACE H NEGATIVE Urine Glucose (UA) NEGATIVE NEGATIVE Urine Ketones NEGATIVE NEGATIVE Urine Nitrite NEGATIVE NEGATIVE Urine Bilirubin NEGATIVE NEGATIVE Urine Urobilinogen 2.0 < = 1.0 MG/DL Urine Leukocyte Esterase NEGATIVE NEGATIVE Urine RBC (Auto) NEGATIVE NEGATIVE Urine RBC NONE /HPF Urine WBC RARE /HPF Urine Squamous Epithelial Cells 0-2 /HPF Urine Crystals NONE /LPF Urine Bacteria TRACE /HPF Urine Casts PRESENT /LPF Urine Hyaline Casts RARE /LPF Urine Mucus NEGATIVE /LPF Urine Culture Indicated NO My Orders Orders - CHRISTA SRIVASTAVA MD Cbc With Automated Diff (09/21/22 16:40) Comprehensive Metabolic Panel (09/21/22 16:40) Lactic Acid Analyzer (09/21/22 16:40) Lipase (09/21/22 16:40) Magnesium (09/21/22 16:40) Ua Culture If Indicated (09/21/22 16:40) Chest 1 View, Ap/Pa Only (09/21/22 16:40) Ed Iv/Invasive Line Start (09/21/22 16:40) Ekg Tracing (09/21/22 16:40) Troponin I [place] (09/21/22 16:40) Vital Signs/I&O 09/21/22 16:32 Temp 36.8 Pulse 77 Resp 18 B/P (MAP) 166/92 (116) Capillary Refill : Progress Note : Progress Note 76-year-old male with above history coming in due to difficulty getting up after he was on his knees working on something at home. ABCs were intact and vitals are stable on presentation. Physical exam reassuring including a nonfocal neuro exam that was comprehensive. We got the patient up and we were able to walk him. An IV was placed and basic labs were obtained and were significant for essentially normal electrolytes, negative troponin, normal kidney function, urinalysis without evidence of infection. His lactic acid is essentially normal, he is not tachycardic or hypotensive and his vitals are nonconcerning. He is not showing any clinical signs of sepsis as he stated. EKG ordered interpreted by me showing no acute ischemic changes. Chest x-ray with improvement from prior, and on my interpretation no obvious pneumonia. I believe he is otherwise stable for discharge with outpatient follow-up. He was sent home with strict return precautions ECG Initial ECG Impression Date: Sep 21, 2022 Initial ECG Impression Time: 16:55 Initial ECG Rate: 74 Initial ECG Rhythm: Normal Sinus Comment Narrow QRS, borderline left axis deviation, no significant ST changes or T wave abnormalities Diagnostic Imaging Diagonstic Imaging: Xray (chest) Comments NAME: CECILIA BARTON [facility] REC#: [id number] PT STATUS: REG ER : 1945 PHYSICIAN: CHRISTA SRIVASTAVA MD ADMIT DATE: 09/21/22/ER Draft Date of Exam:09/21/22 CHEST 1 VIEW, AP/PA ONLY INDICATION: weakness. TECHNIQUE: Single-view chest at 04:56 p.m. CORRELATION STUDY: 03/24/2022. FINDINGS: Heart size and mediastinum remain enlarged. Vasculature is mildly prominent but less severely so from prior. Pulmonary interstitial markings also persist but also appear less pronounced. No consolidating infiltrate. IMPRESSION: 1. Overall appears less edema from prior. Likely largely chronic interstitial changes of the lung parenchyma. Dictated on workstation # [id number] Dict: 09/21/22 1654 Trans: 09/21/221657 [id number] [id number] Interpreted by: MARCIE MARTIN DO Electronically signed by: Departure Impression Primary Impression: Leg weakness Qualified Codes: R29.898 - Other symptoms and signs involving the musculoskeletal system Disposition: 01 HOME, SELF-CARE Condition: Stable Departure-Patient Inst. Decision time for Depature: 18:30 Referrals: FABY CR MD (PCP/Family) Primary Care Physician Patient Instructions: Weakness ED Add. Discharge Instructions: We're not seeing any evidence of infection today or sepsis. Be sure to drink plenty of fluids and follow-up with your regular doctor if things are not improving. Be sure to use your walker at home. You may benefit from your doctor ordering some physical therapy to strengthen yourself CHRISTA SRIVASTAVA MD Sep 21, 2022 16:44
[2022-09-21 16:54] LABS: BASOPHILS % (AUTO) 0 % (0-10); EOSINOPHILS # (AUTO) 0.2 10^3/uL (0.0-0.3); EOSINOPHILS % (AUTO) 2 % (0-10); HEMATOCRIT 47 % (40-54); LYMPHOCYTES % (AUTO) 20 % (12-44); MEAN CORPUSCULAR HEMOGLOBIN 33 pg (25-34); MEAN CORPUSCULAR HGB CONC 34 g/dL (32-36); MEAN CORPUSCULAR VOLUME 95 fL (80-99); MEAN PLATELET VOLUME 9.2 fL (9.0-12.2); MONOCYTES # (AUTO) 0.9 10^3/uL (0.0-1.0); MONOCYTES % (AUTO) 9 % (0-12); NEUTROPHILS # (AUTO) 6.7 10^3/uL (1.8-7.8); NEUTROPHILS % (AUTO) 68 % (42-75); PLATELET COUNT 366 10^3/uL (130-400); WHITE BLOOD COUNT 9.9 10^3/uL (4.3-11.0)
--- NOTE | 2022-09-21 16:58 | Diagnostic Imaging Report ---
INDICATION: weakness. TECHNIQUE: Single-view chest at 04:56 p.m. CORRELATION STUDY: 03/24/2022. FINDINGS: Heart size and mediastinum remain enlarged. Vasculature is mildly prominent but less severely so from prior. Pulmonary interstitial markings also persist but also appear less pronounced. No consolidating infiltrate. IMPRESSION: 1. Overall appears less edema from prior. Likely largely chronic interstitial changes of the lung parenchyma. Dictated by: Dictated on workstation # [id number]
[2022-09-21 17:05] LABS: ALBUMIN 4.1 GM/DL (3.2-4.5); CHLORIDE 106 MMOL/L (98-107); POTASSIUM 3.8 MMOL/L (3.6-5.0); SODIUM 138 MMOL/L (135-145)
[2022-09-21 17:06] LABS: CALCIUM 9.3 MG/DL (8.5-10.1)
[2022-09-21 17:07] LABS: GLUCOSE 135 MG/DL (70-105)
[2022-09-21 17:09] LABS: BILIRUBIN,TOTAL 0.8 MG/DL (0.1-1.0); CARBON DIOXIDE 19 MMOL/L (21-32)
[2022-09-21 17:11] LABS: ALKALINE PHOSPHATASE 90 U/L (40-136); CREATININE SERUM 0.97 MG/DL (0.60-1.30); GFR ESTIMATED 80
[2022-09-21 17:12] LABS: BUN/CREATININE RATIO 5
[2022-09-21 17:14] LABS: ALANINE AMINOTRANSFERASE 38 U/L (0-55); MAGNESIUM 2.2 MG/DL (1.6-2.4)
[2022-09-21 17:15] LABS: LIPASE 23 U/L (8-78)
[2022-09-21 17:26] LABS: BILIRUBIN,URINE NEGATIVE (NEGATIVE); CLARITY,URINE SL CLOUDY; COLOR,URINE YELLOW; GLUCOSE, URINE (UA) NEGATIVE (NEGATIVE); KETONES,URINE NEGATIVE (NEGATIVE); LEUKOCYTE ESTERASE ,URINE NEGATIVE (NEGATIVE); NITRITE,URINE NEGATIVE (NEGATIVE); PROTEIN,URINE TRACE (NEGATIVE)
[2022-09-21 17:53] LABS: BACTERIA,URINE TRACE /HPF; HYALINE CASTS, URINE RARE /LPF; SQUAMOUS EPITHELIAL CELL,UR 0-2 /HPF; WBC,URINE RARE /HPF
[2022-09-21 18:40] VITALS: BP 158/80
== END 2022-09-21 18:41 | disposition home or self-care (01) ==
LOC: EDUNIT# 16:30 → ER 16:33
DX: R53.1 Weakness (principal)
CPT/HCPCS: 36415; 71045; 80053; 81000; 83605; 83690; 83735; 84484; 85025; 93005